=== PATIENT | male | born 1965 | race Caucasian/White ===

== ENCOUNTER 2019-05-01 14:08 | Emergency (ER) | payer MEDICAID ==
[2019-05-01 14:19] VITALS: BP 135/74
--- NOTE | 2019-05-01 14:49 | XRAY Report ---
Reason: fall in shower yesterday. pain/swelling. Procedure Date: 05/01/2019 Accession Number: [id number] / [id number] Procedure: XR - Shoulder 3 View LT CPT Code: FULL RESULT: EXAM: LEFT SHOULDER RADIOGRAPHY EXAM DATE: 05/01/2019 02:35 PM. CLINICAL HISTORY: Fall in shower yesterday. Pain/swelling. COMPARISON: None. TECHNIQUE: 4 views. FINDINGS: Bones: On the Grashey view, there is a faint vertical lucency projecting over the glenoid. On the AP view, there may be slight cortical irregularity at the posterior wall of the glenoid. The proximal humerus and the visualized clavicle are intact. Joints: The glenohumeral and acromioclavicular joints are normal. Soft tissues: Prior left axillary lymph node dissection. Visualized left lung is clear. IMPRESSION: Questionable nondisplaced fracture of the posterior wall of the scapular glenoid. Recommend axillary view. RADIA
--- NOTE | 2019-05-01 15:48 | ED Physician Documentation ---
PD HPI UPPER EXT INJURY - Stated complaint Stated Complaint: LEFT SHOULDER INJ - Chief complaint Chief Complaint: Trauma Ext - History obtained from History obtained from: Patient - History of Present Illness Location: Left, Shoulder Type of injury: Fall Where injury occurred: Home Timing - onset: Yesterday Timing - duration: Days (1) Timing - details: Abrupt onset, Still present, Still present in ED Improved by: Rest, Immobilization Worsened by: Moving, Palpating Associated symptoms: No: Weakness, Numbness, Tingling, Swelling Contributing factors: No: Anticoagulated Similar symptoms before: Has not had sx before Recently seen: Not recently seen - Additonal information Additional information: 53-year-old male with chronic back pain has some weakness to his right leg associated with his back pain and he was getting out of the shower yesterday when he fell after his right leg gave out and he landed on his outstretched left arm. He is complaining of pain in his left shoulder with restriction in range of motion. He does indicate that he has previously been on pain contract with his back pain and that Dilaudid was the medication that worked and he indicates that he is no longer on a pain contract. Review of Systems Constitutional: denies: Fever Eyes: denies: Decreased vision Ears: denies: Ear pain Nose: denies: Rhinorrhea / runny nose, Congestion Throat: denies: Sore throat Cardiac: denies: Chest pain / pressure, Palpitations Respiratory: denies: Dyspnea, Cough GI: denies: Abdominal Pain, Nausea, Vomiting : denies: Dysuria, Frequency Musculoskeletal: reports: Back pain, Extremity pain, Joint pain. denies: Neck pain Neurologic: denies: Generalized weakness, Focal weakness, Numbness PD PAST MEDICAL HISTORY - Past Medical History Past Medical History: Yes Cardiovascular: None Respiratory: None Endocrine/Autoimmune: None GI: None : None HEENT: None Psych: None Musculoskeletal: None Derm: None - Past Surgical History Past Surgical History: Yes General: Appendectomy - Present Medications Home Medications: Ambulatory Orders Medication Instructions Recorded Confirmed Hydromorphone HCl [Dilaudid] 4 mg PO Q6HR PRN #20 tablet 05/01/19 - Allergies Allergies/Adverse Reactions: Allergies Allergy/AdvReac Type Severity Reaction Status Date / Time diazepam [From Valium] Allergy Unknown Verified 05/01/19 14:19 - Social History Does the pt smoke?: No Smoking Status: Never smoker Does the pt drink ETOH?: No Does the pt have substance abuse?: No - Immunizations Immunizations are current?: Yes - POLST Patient has POLST: No PD ED PE NORMAL - Vitals Vital signs reviewed: Yes (hypertensive mild ) - General General: Alert and oriented X 3, No acute distress, Well developed/nourished - HEENT HEENT: Atraumatic, PERRL, EOMI - Neck Neck: Supple, no meningeal sign - Respiratory Respiratory: No respiratory distress - Back Back: No CVA TTP, No spinal TTP - Derm Derm: Normal color, Warm and dry, No rash - Extremities Extremities: No deformity, No edema, Other (There is tenderness to the left shoulder over the rotator cuff. He is able to hold the arm in abduction and has fair ROM. distal n/v is intact. ) - Neuro Neuro: Alert and oriented X 3, skirt maker 2-12 intact, No motor deficit, No sensory deficit, Normal speech Eye Opening: Spontaneous Motor: Obeys Commands Verbal: Oriented GCS Score: 15 - Psych Psych: Normal mood, Normal affect Results - Vitals Vitals: Vital Signs - 24 hr 05/01/19 14:16 Temperature 36.1 C L Heart Rate 88 Respiratory 16 Rate Blood Pressure 135/74 H O2 Saturation 98 Oxygen O2 Source Room air - Rads (name of study) shoulder Radiology: Prelim report reviewed (Impression: Questionable nondisplaced fracture of the posterior wall of the scapular glenoid. Recommend axillary view.), EMP read indepedently, See rad report axillary view Radiology: Prelim report reviewed (Impression: Negative axillary view of the left shoulder. No glenoid fracture is identified.), EMP read indepedently, See rad report PD MEDICAL DECISION MAKING - ED course Complexity details: reviewed results, re-evaluated patient, considered differential, d/w patient ED course: cvA NM 53-year-old male with chronic back pain has now slipped fallen and injured his left shoulder. He does appear to have a fracture of the posterior aspect of the glenoid and this does not appear to restrict his movement excessively. He is placed into a sling and instructed to remove the sling frequently for range of motion exercises and he will follow-up with orthopedics. Departure - Departure Disposition: 01 Home, Self Care Clinical Impression: Glenoid fracture of shoulder Qualifiers: Encounter type: initial encounter Fracture type: closed Laterality: left Qualified Code(s): S42.142A - Displaced fracture of glenoid cavity of scapula, left shoulder, initial encounter for closed fracture Condition: Stable Instructions: ED Immobilizer Shoulder Follow-Up: [facility] [Provider Group] Prescriptions: Hydromorphone HCl [Dilaudid] 4 mg PO Q6HR PRN #20 tablet PRN Reason: Pain Discharge Date/Time: 05/01/19 16:30
[2019-05-01] MEDS ORDERED: DEXAMETHASONE 10 MG/ML VIAL PO STA (16:21)
[2019-05-01] MEDS ORDERED: CHERRY SYRUP 10 ML UDC PO ONE (16:21)
--- NOTE | 2019-05-01 17:30 | XRAY Report ---
Reason: axillary view requested by RAD Procedure Date: 05/01/2019 Accession Number: [id number] / [id number] Procedure: XR - Shoulder 1 View LT CPT Code: FULL RESULT: EXAM: LEFT SHOULDER RADIOGRAPHY EXAM DATE: 05/01/2019 04:10 PM. CLINICAL HISTORY: Axillary view requested by RAD. Left shoulder pain and swelling after fall. COMPARISON: SHOULDER 3 VIEW LT 05/01/2019 2:25 PM. TECHNIQUE: Axillary view. FINDINGS: Bones: Normal. No fracture or bone lesion. No glenoid fracture is identified. Joints: The glenohumeral and acromioclavicular joints are normal. Soft tissues: The visualized hemithorax is unremarkable. No soft tissue swelling. IMPRESSION: Negative axillary view of the left shoulder. No glenoid fracture is identified. RADIA
== END 2019-05-01 16:30 | disposition home or self-care (01) ==
LOC: ED 14:08
DX: S42.142A Displaced fracture of glenoid cavity of scapula, left shoulder, initial encounter for closed fracture (principal); W01.0XXA Fall on same level from slipping, tripping and stumbling without subsequent striking against object, initial encounter; Y93.89 Activity, other specified; Y92.002 Bathroom of unspecified non-institutional (private) residence as the place of occurrence of the external cause; M54.9 Dorsalgia, unspecified; G89.29 Other chronic pain
CPT/HCPCS: 73020; 73030; 99283; A9270

== ENCOUNTER 2019-06-08 07:11 | Outpatient (CLI) | payer MEDICAID ==
[2019-06-08 10:27] LABS: BASOPHILS % (AUTO) 0.4 %; EOSINOPHILS # (AUTO) 0.3 10^3/uL (0.0-0.7); EOSINOPHILS % (AUTO) 2.7 %; HGB - HEMOGLOBIN 15.7 g/dL (14.0-18.0); LYMPHOCYTES # (AUTO) 3.1 10^3/uL (1.5-3.5); LYMPHOCYTES % (AUTO) 31.4 %; MEAN CORPUSCULAR HEMOGLOBIN 31.7 pg (27.0-31.0); MEAN CORPUSCULAR HGB CONC 33.9 g/dL (32.0-36.0); MEAN CORPUSCULAR VOLUME 93.3 fL (80.0-94.0); MEAN PLATELET VOLUME 9.7 fL (7.4-11.4); MONOCYTES # (AUTO) 0.5 10^3/uL (0.0-1.0); MONOCYTES % (AUTO) 5.4 %; NEUTROPHILS # (AUTO) 5.9 10^3/uL (1.5-6.6); NEUTROPHILS % (AUTO) 59.6 %; PLT - PLATELET COUNT 260 10^3/uL (130-450); RED BLOOD COUNT 4.96 10^6/uL (4.70-6.10); WHITE BLOOD COUNT 9.8 x10^3/uL (4.8-10.8)
[2019-06-08 10:40] LABS: ALBUMIN 3.9 g/dL (3.2-5.5); ALBUMIN/GLOBULIN RATIO 1.2 (1.0-2.2); BILIRUBIN,TOTAL 0.6 mg/dL (0.2-1.0); CALCIUM 9.1 mg/dL (8.5-10.3); CREATININE 1.1 mg/dL (0.6-1.2); TOTAL PROTEIN 7.2 g/dL (6.7-8.2)
[2019-06-08 10:49] LABS: HB2 TOTAL 15.8 g/dL; HEMOGLOBIN A1C 0.61 g/dL; HEMOGLOBIN A1C % 5.7 % (4.6-6.2); T4 (THYROXINE) 6.4 ug/dL (6.09-12.23)
[2019-06-08 10:53] LABS: THYROID STIMULATING HORMONE 3.34 uIU/mL (0.34-5.60)
== END 2019-06-08 07:12 | disposition home or self-care (01) ==
LOC: LAB.S 07:11
PROVIDERS: ATTEND Family Medicine
DX: F31.30 Bipolar disorder, current episode depressed, mild or moderate severity, unspecified (principal); E11.9 Type 2 diabetes mellitus without complications
CPT/HCPCS: 36415; 80050; 83036; 84436; 84480; 84481

== ENCOUNTER 2019-07-15 09:20 | Outpatient (CLI) | payer MEDICAID ==
--- NOTE | 2019-07-17 11:45 | Ultrasound Report ---
Reason: ABDOMINAL WALL ANOMALY Procedure Date: 07/15/2019 Accession Number: [id number] / [id number] Procedure: US - Abdomen Limited CPT Code: FULL RESULT: EXAM: ABDOMEN ULTRASOUND LIMITED, RIGHT UPPER QUADRANT. EXAM DATE: 07/15/2019 10:27 AM. CLINICAL HISTORY: Lump seen during physical therapy. COMPARISON: None. TECHNIQUE: Real-time scanning was performed with static images obtained. FINDINGS: Targeted evaluation of the left mid anterior abdominal wall was performed. Safety Intern static images acquired and reviewed. No focal abnormality noted at the site of clinical concern. Specifically, no ventral wall abdominal defect concerning for hernia. No additional mass, collection or adenopathy. IMPRESSION: 1. No abdominal wall hernia. 2. No mass, collection or adenopathy. RADIA
== END 2019-07-15 09:21 | disposition home or self-care (01) ==
LOC: DI 09:20
PROVIDERS: ATTEND Nurse Practitioner
DX: Q79.59 Other congenital malformations of abdominal wall (principal)
CPT/HCPCS: 76705

== ENCOUNTER 2019-12-09 11:21 | Outpatient (CLI) | payer MEDICAID ==
[2019-12-09 11:59] LABS: BASOPHILS # (AUTO) 0.1 10^3/uL (0.0-0.1); BASOPHILS % (AUTO) 0.4 %; EOSINOPHILS # (AUTO) 0.1 10^3/uL (0.0-0.7); EOSINOPHILS % (AUTO) 1.1 %; HGB - HEMOGLOBIN 15.8 g/dL (14.0-18.0); LYMPHOCYTES # (AUTO) 2.2 10^3/uL (1.5-3.5); LYMPHOCYTES % (AUTO) 19.5 %; MEAN CORPUSCULAR HGB CONC 33.8 g/dL (32.0-36.0); MEAN CORPUSCULAR VOLUME 85.9 fL (80.0-94.0); MEAN PLATELET VOLUME 8.7 fL (7.4-11.4); MONOCYTES # (AUTO) 0.7 10^3/uL (0.0-1.0); MONOCYTES % (AUTO) 6.4 %; NEUTROPHILS # (AUTO) 8.1 10^3/uL (1.5-6.6); NEUTROPHILS % (AUTO) 72.2 %; PLT - PLATELET COUNT 274 10^3/uL (130-450); RED BLOOD COUNT 5.45 10^6/uL (4.70-6.10); RED CELL DISTRIBUTION WIDTH 12.4 % (12.0-15.0); WHITE BLOOD COUNT 11.2 x10^3/uL (4.8-10.8)
[2019-12-09 12:05] LABS: CALCIUM 9.5 mg/dL (8.5-10.3); CREATININE 1.2 mg/dL (0.6-1.2)
[2019-12-09 12:14] LABS: HEMOGLOBIN A1C 1.18 g/dL; HEMOGLOBIN A1C % 8.9 % (4.6-6.2)
== END 2019-12-09 11:22 | disposition home or self-care (01) ==
LOC: LAB 11:21
PROVIDERS: ATTEND Family Medicine
DX: M54.5 Low back pain (principal); G89.29 Other chronic pain; E11.9 Type 2 diabetes mellitus without complications; R23.1 Pallor
CPT/HCPCS: 36415; 80048; 83036; 85025

== ENCOUNTER 2020-04-24 12:17 | Outpatient (CLI) | payer MEDICAID | END 2020-04-24 12:18 | disposition critical access hospital (66) | LOC: EMS 12:17 | PROVIDERS: ATTEND Surgery | DX: R07.9 Chest pain, unspecified (principal); R42 Dizziness and giddiness; R73.09 Other abnormal glucose | CPT/HCPCS: A0425; A0429; A0999 ==

== ENCOUNTER 2020-04-24 12:37 | Emergency (ER) | payer MEDICAID ==
--- NOTE | 2020-04-24 12:44 | ED Physician Documentation ---
PD HPI CHEST PAIN - Stated complaint Stated Complaint: DIZZY/CHEST PAIN - History obtained from History obtained from: Patient, EMS - History of Present Illness Timing - onset: Other (54-year-old gentleman with chronic back pain presents by ambulance today because he is "felt like crud" for the last 2 days. He has been dizzy with sweats. Starting today at around 10 AM has had mild left lower chest pain that is nonradiating that he describes as sharp. No history of heart problems. No pedal edema or calf pain. Prehospital his EKG was normal and his blood sugar was about 500. He does have a history of borderline diabetes for which she is supposed to take metformin but missed the last few days.) Review of Systems Constitutional: reports: Fatigue, Sweats. denies: Fever, Chills Throat: denies: Dental pain / toothache, Sore throat Cardiac: reports: Chest pain / pressure. denies: Palpitations, Pedal edema, Calf pain Respiratory: denies: Dyspnea, Cough GI: reports: Constipation. denies: Abdominal Pain, Nausea, Diarrhea PD PAST MEDICAL HISTORY - Past Medical History Cardiovascular: None Respiratory: None Endocrine/Autoimmune: None GI: None : None HEENT: None Psych: None Musculoskeletal: None Derm: None - Past Surgical History Past Surgical History: Yes General: Appendectomy - Present Medications Home Medications: Ambulatory Orders Medication Instructions Recorded Confirmed Hydromorphone HCl [Dilaudid] 4 mg PO Q6HR PRN #20 tablet 05/01/19 Blood Sugar Diagnostic [Glucometer 1 each QID #120 strip 04/24/20 Strips] Blood-Glucose Meter [Glucometer] 1 each ONCE #1 each 04/24/20 Glipizide 5 mg PO DAILY #30 tablet 04/24/20 Lancets 1 each QID #120 each 04/24/20 - Allergies Allergies/Adverse Reactions: Allergies Allergy/AdvReac Type Severity Reaction Status Date / Time diazepam [From Valium] Allergy Unknown Verified 04/24/20 12:43 - Social History Does the pt smoke?: No Smoking Status: Never smoker Does the pt drink ETOH?: No Does the pt have substance abuse?: No - Immunizations Immunizations are current?: Yes - POLST Patient has POLST: No PD ED PE NORMAL - Vitals Vital signs reviewed: Yes - General General: Alert and oriented X 3, No acute distress - HEENT HEENT: PERRL, EOMI - Neck Neck: Supple, no meningeal sign, No bony TTP - Cardiac Cardiac: RRR, No murmur - Respiratory Respiratory: No respiratory distress, Clear bilaterally - Abdomen Abdomen: Non tender - Back Back: No CVA TTP, No spinal TTP - Derm Derm: Normal color, Warm and dry - Extremities Extremities: No edema, No calf tenderness / cord - Neuro Neuro: Alert and oriented X 3, Normal speech Results - Vitals Vitals: Vital Signs - 24 hr 04/24/20 04/24/20 04/24/20 12:44 12:49 14:38 Temperature 36.5 C 36.5 C Heart Rate 78 87 87 Respiratory 16 16 19 Rate Blood Pressure 127/75 127/75 116/81 H O2 Saturation 96 92 97 Oxygen O2 Source Room air - EKG (time done) 1306 Rate: Rate (enter#) (77) Rhythm: NSR [place]: Normal Intervals: Normal [place] QRS: Normal Ischemia: Normal ST segments Computer interpretation: Agree with computer - Labs Labs: Laboratory Tests 04/24/20 04/24/20 04/24/20 12:50 12:50 12:50 WBC 5.0 RBC 4.96 Hgb 14.2 Hct 41.3 L MCV 83.3 MCH 28.6 MCHC 34.4 RDW 12.3 Plt Count 229 MPV 9.1 Neut # (Auto) 3.0 Lymph # (Auto) 1.5 [place] # (Auto) 0.4 Eos # (Auto) 0.1 Baso # (Auto) 0.0 Absolute Nucleated RBC 0.00 Nucleated RBC % 0.0 VBG pH VBG pCO2 VBG pO2 VBG HCO3 VBG Total CO2 VBG O2 Saturation VBG Base Excess Sodium 130 L Potassium 4.0 Chloride 94 L Carbon Dioxide 25 Anion Gap 11.0 BUN 17 Creatinine 1.3 H Estimated GFR (MDRD) 57 L Glucose 537 H* Calcium 8.9 Phosphorus 3.1 Magnesium 1.8 Total Bilirubin 0.5 AST 28 ALT 51 Alkaline Phosphatase 147 H Troponin I High Sens 3.7 Total Protein 6.8 Albumin 3.6 Globulin 3.2 Albumin/Globulin Ratio 1.1 Lipase 47 Urine Color Urine Clarity Urine pH Ur Specific [place] Urine Protein Urine Glucose (UA) Urine Ketones Urine Occult Blood Urine Nitrite Urine Bilirubin Urine Urobilinogen Ur Leukocyte Esterase Ur Microscopic Review Urine Culture Comments Urine Opiates Screen Ur Oxycodone Screen Urine Methadone Screen Ur Propoxyphene Screen Ur Barbiturates Screen Ur Tricyclics Screen Ur Phencyclidine Scrn Ur Amphetamine Screen U Methamphetamines Scrn U Benzodiazepines Scrn Urine Cocaine Screen U Cannabinoids Screen Serum Ketones NEGATIVE 04/24/20 04/24/20 12:50 12:55 WBC RBC Hgb Hct MCV MCH MCHC RDW Plt Count MPV Neut # (Auto) Lymph # (Auto) [place] # (Auto) Eos # (Auto) Baso # (Auto) Absolute Nucleated RBC Nucleated RBC % VBG pH 7.399 VBG pCO2 40.1 L VBG pO2 35.8 VBG HCO3 24.2 VBG Total CO2 25.5 VBG O2 Saturation 75.1 VBG Base Excess -0.5 Sodium Potassium Chloride Carbon Dioxide Anion Gap BUN Creatinine Estimated GFR (MDRD) Glucose Calcium Phosphorus Magnesium Total Bilirubin AST ALT Alkaline Phosphatase Troponin I High Sens Total Protein Albumin Globulin Albumin/Globulin Ratio Lipase Urine Color YELLOW Urine Clarity CLEAR Urine pH 6.5 Ur Specific [place] <=1.005 Urine Protein NEGATIVE Urine Glucose (UA) >=1000 H Urine Ketones NEGATIVE Urine Occult Blood NEGATIVE Urine Nitrite NEGATIVE Urine Bilirubin NEGATIVE Urine Urobilinogen 0.2 (NORMAL) Ur Leukocyte Esterase NEGATIVE Ur Microscopic Review NOT INDICATED Urine Culture Comments NOT INDICATED Urine Opiates Screen NEGATIVE Ur Oxycodone Screen NEGATIVE Urine Methadone Screen NEGATIVE Ur Propoxyphene Screen NEGATIVE Ur Barbiturates Screen NEGATIVE Ur Tricyclics Screen POSITIVE H Ur Phencyclidine Scrn NEGATIVE Ur Amphetamine Screen NEGATIVE U Methamphetamines Scrn NEGATIVE U Benzodiazepines Scrn NEGATIVE Urine Cocaine Screen NEGATIVE U Cannabinoids Screen POSITIVE H Serum Ketones PD MEDICAL DECISION MAKING - ED course ED course: 54-year-old gentleman with recent diagnosis of diabetes has been off of his metformin for a few days because he went on vacation and did not take it with him. Now presents with dizziness and other nonspecific symptoms that would point to severe hyperglycemia which was treated with divided doses of saline and insulin with significant improvement in his blood sugar and his symptoms. I recommended starting a low-dose of Lantus, he does not want to take insulin so we will add glipizide as a second agent. Departure - Departure Disposition: 01 Home, Self Care Clinical Impression: Uncontrolled type 2 diabetes mellitus Qualifiers: Glycemic state: with hyperglycemia Qualified Code(s): E11.65 - Type 2 diabetes mellitus with hyperglycemia Condition: Good Record reviewed to determine appropriate education?: Yes Instructions: Diabetes Type 2 Oral Meds, ED Hyperglycemia Diabetic Follow-Up: Mark Boyce MD [Primary Care Provider] - Prescriptions: Blood Sugar Diagnostic [Glucometer Strips] 1 each QID #120 strip Blood-Glucose Meter [Glucometer] 1 each ONCE #1 each Glipizide 5 mg PO DAILY #30 tablet Lancets 1 each QID #120 each Comments: Restart your metformin, also add the glipizide. Start checking your blood sugars 3 times a day and keep track of them. Follow-up with your doctor, next available appointment. Return if worse. As discussed, I suspect that at some point you will likely need to start insulin therapy.
[2020-04-24] MEDS ORDERED: ASPIRIN CHEW 81 MG TABLET PO STA (12:55)
[2020-04-24] MEDS ORDERED: INSULIN REGULAR HUMAN 100 UNIT/1 ML 10 ML MDV IVP STA ×2 (12:55→13:56)
[2020-04-24] MEDS ORDERED: SODIUM CHLORIDE 0.9% 1,000 ML IV STA ×2 (12:55→13:56)
[2020-04-24 12:58] LABS: VBG PCO2 40.1 mmHg (41-51); VBG PH 7.399 (7.31-7.41)
[2020-04-24 12:59] LABS: VBG BASE EXCESS -0.5 mmol/L (-2 - +2); VBG PO2 35.8 mmHg (25-47); VBG TOTAL CO2 25.5 mmol/L (24-29)
[2020-04-24 13:00] LABS: BASOPHILS % (AUTO) 0.4 %; EOSINOPHILS # (AUTO) 0.1 10^3/uL (0.0-0.7); EOSINOPHILS % (AUTO) 1.4 %; HGB - HEMOGLOBIN 14.2 g/dL (14.0-18.0); LYMPHOCYTES # (AUTO) 1.5 10^3/uL (1.5-3.5); LYMPHOCYTES % (AUTO) 30.3 %; MEAN CORPUSCULAR HEMOGLOBIN 28.6 pg (27.0-31.0); MEAN CORPUSCULAR HGB CONC 34.4 g/dL (32.0-36.0); MEAN CORPUSCULAR VOLUME 83.3 fL (80.0-94.0); MEAN PLATELET VOLUME 9.1 fL (7.4-11.4); MONOCYTES # (AUTO) 0.4 10^3/uL (0.0-1.0); NEUTROPHILS % (AUTO) 59.1 %; PLT - PLATELET COUNT 229 10^3/uL (130-450); RED BLOOD COUNT 4.96 10^6/uL (4.70-6.10); RED CELL DISTRIBUTION WIDTH 12.3 % (12.0-15.0)
[2020-04-24 13:01] LABS: MUDS CUTOFF CONCENTRATIONS CUTOFF CONC BELOW:
[2020-04-24 13:03] LABS: BILIRUBIN,URINE NEGATIVE (NEGATIVE); GLUCOSE, URINE (UA) >=1000 mg/dL (NEGATIVE); KETONES,URINE (UA) NEGATIVE (NEGATIVE); LEUKOCYTE ESTERASE, URINE NEGATIVE (NEGATIVE); NITRITE,URINE NEGATIVE (NEGATIVE); OCCULT BLOOD,URINE NEGATIVE (NEGATIVE); PH,URINE 6.5 PH (5.0-7.5); PROTEIN,URINE NEGATIVE (NEGATIVE); UROBILINOGEN,URINE 0.2 (NORMAL) E.U./dL (NORMAL)
[2020-04-24 13:09] LABS: CLARITY,URINE CLEAR (CLEAR)
[2020-04-24 13:13] LABS: ALBUMIN 3.6 g/dL (3.2-5.5); ALBUMIN/GLOBULIN RATIO 1.1 (1.0-2.2); ALKALINE PHOSPHATASE 147 IU/L (42-121); ALT ALANINE AMINOTRANSFERASE 51 IU/L (10-60); AST ASPARTATE AMINOTRANSFERASE 28 IU/L (10-42); BILIRUBIN,TOTAL 0.5 mg/dL (0.2-1.0); BUN - BLOOD UREA NITROGEN 17 mg/dL (6-20); CALCIUM 8.9 mg/dL (8.5-10.3); CARBON DIOXIDE - CO2 25 mmol/L (21-32); CHLORIDE 94 mmol/L (101-111); CREATININE 1.3 mg/dL (0.6-1.2); LIPASE 47 U/L (22-51); MAGNESIUM 1.8 mg/dL (1.7-2.8); PHOSPHORUS 3.1 mg/dL (2.5-4.6); SODIUM 130 mmol/L (135-145); TOTAL PROTEIN 6.8 g/dL (6.7-8.2)
[2020-04-24 13:18] LABS: AMPHETAMINE SCREEN,URINE NEGATIVE (NEGATIVE); BENZODIAZEPINES SCREEN, URINE NEGATIVE (NEGATIVE); COCAINE SCREEN URINE NEGATIVE (NEGATIVE); METHADONE SCREEN, URINE NEGATIVE (NEGATIVE); METHAMPHETAMINES SCREEN, URINE NEGATIVE (NEGATIVE); OPIATE SCREEN, URINE NEGATIVE (NEGATIVE); OXYCODONE SCREEN, URINE NEGATIVE (NEGATIVE); PROPOXYPHENE SCREEN, URINE NEGATIVE (NEGATIVE); TRICYCLIC ANTIDEPRESSANT,URINE POSITIVE (NEGATIVE)
[2020-04-24 13:20] LABS: GLUCOSE 537 mg/dL (70-100); KETONES, SERUM (ACETEST) NEGATIVE (NEGATIVE)
[2020-04-24] MEDS ORDERED: metFORMIN 500 MG TABLET PO STA (13:56)
[2020-04-24] MEDS ORDERED: glipiZIDE 5 MG TABLET PO STA (14:58)
[2020-04-24 15:23] VITALS: BP 139/71
[2020-04-24 15:53] LABS: HEMOGLOBIN A1C 1.77 g/dL; HEMOGLOBIN A1C % 12.9 % (4.6-6.2)
== END 2020-04-24 15:24 | disposition home or self-care (01) ==
LOC: EDUNIT# → ED 12:37
DX: E11.65 Type 2 diabetes mellitus with hyperglycemia (principal); T38.3X6A Underdosing of insulin and oral hypoglycemic [antidiabetic] drugs, initial encounter; Z91.128 Patient's intentional underdosing of medication regimen for other reason; Z79.84 Long term (current) use of oral hypoglycemic drugs
CPT/HCPCS: 36415; 80053; 80306; 81003; 82009; 82803; 83036; 83690; 83735; 84100; 84484; 85025; 93005; 96360; 96361; 99284; A9270; J1815; 81001; 87086

== ENCOUNTER 2020-04-25 08:00 | Outpatient (CLI) | payer MEDICAID ==
--- NOTE | 2020-04-25 15:08 | XRAY Report ---
Reason: LEFT ELBOW PAIN Procedure Date: 04/25/2020 Accession Number: [id number] / [id number] Procedure: WCP - Elbow 3 View LT CPT Code: Final Report FULL RESULT: PROCEDURE: Elbow 3 View LT INDICATIONS: LEFT ELBOW PAIN TECHNIQUE: 4 views of the elbow were acquired. COMPARISON: None FINDINGS: Bones: No fractures or dislocations. No suspicious bony lesions. Mild tricompartmental periarticular osteophyte formation is present. Soft tissues: No elbow joint effusion. No suspicious soft tissue calcifications. IMPRESSION: Osteoarthritis. No acute fracture. No osseous lesion. If symptoms and/or clinical suspicion for pathology continue, further assessment with repeat plain films, or advanced imaging (e.g., CT, MRI, or bone scan) is recommended for further assessment. Reviewed by: Deedee Fernando MD on 04/25/2020 3:03 PM PDT Approved by: Deedee Fernando MD on 04/25/2020 3:03 PM PDT Station ID: [id number]
== END 2020-04-25 23:59 | disposition home or self-care (01) ==
LOC: DI.WCP 08:00
PROVIDERS: ATTEND Family Medicine
DX: M19.022 Primary osteoarthritis, left elbow (principal)

== ENCOUNTER 2020-07-06 13:38 | Outpatient (CLI) | payer MEDICAID | END 2020-07-06 13:39 | disposition critical access hospital (66) | LOC: EMS 13:38 | PROVIDERS: ATTEND Surgery | DX: S99.912A Unspecified injury of left ankle, initial encounter (principal); W23.0XXA Caught, crushed, jammed, or pinched between moving objects, initial encounter | CPT/HCPCS: A0425; A0427; A0999 ==

== ENCOUNTER 2020-07-06 14:00 | Emergency (ER) | payer MEDICAID ==
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
[2020-07-06] MEDS ORDERED: HYDROmorphone 1 MG/ML CARPUJECT IVP STA (14:17)
[2020-07-06] MEDS ORDERED: oxyCODONE 5 MG TABLET PO STA (14:47)
[2020-07-06] MEDS ORDERED: IBUPROFEN 600 MG TABLET PO STA (14:47)
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
[2020-07-06 15:02] VITALS: BP 135/82
== END 2020-07-06 15:51 | disposition home or self-care (01) ==
LOC: EDUNIT# → ED 14:00
DX: S60.419A Abrasion of unspecified finger, initial encounter (principal); S20.319A Abrasion of unspecified front wall of thorax, initial encounter; S97.02XA Crushing injury of left ankle, initial encounter; S86.912A Strain of unspecified muscle(s) and tendon(s) at lower leg level, left leg, initial encounter; W23.0XXA Caught, crushed, jammed, or pinched between moving objects, initial encounter; Y93.89 Activity, other specified
CPT/HCPCS: 73562; 73610; 99283; 99284; A9270

== ENCOUNTER 2020-07-08 08:27 | Outpatient (CLI) | payer MEDICAID ==
[2020-07-08 11:43] LABS: CALCIUM 10.2 mg/dL (8.5-10.3)
[2020-07-08 12:31] LABS: HB2 TOTAL 15.3 g/dL; HEMOGLOBIN A1C 1.15 g/dL
== END 2020-07-08 23:59 | disposition home or self-care (01) ==
LOC: LAB.WCP 08:27
PROVIDERS: ATTEND Family Medicine
DX: E11.42 Type 2 diabetes mellitus with diabetic polyneuropathy (principal)
CPT/HCPCS: 36415; 80048; 83036

== ENCOUNTER 2020-08-08 11:14 | Outpatient (CLI) | payer MEDICAID ==
--- NOTE | 2020-08-08 11:17 | XRAY Report ---
PROCEDURE: Hand 3 View LT INDICATIONS: LEFT HAND PAIN TECHNIQUE: 3 views of the hand(s) acquired. COMPARISON: None. FINDINGS: Bones: No fractures or dislocations. No suspicious bony lesions. Soft tissues: No suspicious soft tissue calcifications. IMPRESSION: Source of pain is not found. No trauma identified. Note is made of what appears to be mild swelling o eddie the dorsum of the hand on the lateral view. However, this may simply represent body habitus. Reviewed by: Valerio Amato MD on 08/08/2020 11:16 AM PDT Approved by: Valerio Amato MD on 08/08/2020 11:16 AM PDT Station ID: [id number]
--- NOTE | 2020-08-08 11:19 | XRAY Report ---
PROCEDURE: Wrist 3 View LT INDICATIONS: LEFT WRIST PAIN TECHNIQUE: 3 views of the wrist were acquired. COMPARISON: FINDINGS: Bones: No fractures or dislocations. Note is made of an old accessory ossicle or old avulsion fragm ent adjacent to the distal aspect of the ulna styloid process. No suspicious bony lesions. Scaphoid view: Not obtained but the scaphoid visualized appears normal. Soft tissues: No suspicious soft tissue calcifications. IMPRESSION: No acute trauma found. What appears to be an accessory ossicle or long-standing old avulsion fragment from the distant past is noted adjacent to the tip of the ulnar styloid process. Reviewed by: Valerio Amato MD on 08/08/2020 11:17 AM PDT Approved by: Valerio Amato MD on 08/08/2020 11:17 AM PDT Station ID: [id number]
== END 2020-08-08 23:59 | disposition home or self-care (01) ==
LOC: DI.WCP 11:14
PROVIDERS: ATTEND Nurse Practitioner
DX: M79.642 Pain in left hand (principal)

== ENCOUNTER 2020-08-24 10:03 | Outpatient (CLI) | payer MEDICAID ==
[2020-08-24 11:41] LABS: BASOPHILS # (AUTO) 0.1 10^3/uL (0.0-0.1); BASOPHILS % (AUTO) 0.5 %; EOSINOPHILS # (AUTO) 0.1 10^3/uL (0.0-0.7); EOSINOPHILS % (AUTO) 0.6 %; HGB - HEMOGLOBIN 15.1 g/dL (14.0-18.0); LYMPHOCYTES # (AUTO) 1.5 10^3/uL (1.5-3.5); LYMPHOCYTES % (AUTO) 14.5 %; MEAN CORPUSCULAR HEMOGLOBIN 30.8 pg (27.0-31.0); MEAN CORPUSCULAR HGB CONC 33.6 g/dL (32.0-36.0); MEAN CORPUSCULAR VOLUME 91.4 fL (80.0-94.0); MEAN PLATELET VOLUME 9.6 fL (7.4-11.4); MONOCYTES # (AUTO) 0.6 10^3/uL (0.0-1.0); MONOCYTES % (AUTO) 5.9 %; NEUTROPHILS # (AUTO) 8.1 10^3/uL (1.5-6.6); NEUTROPHILS % (AUTO) 76.8 %; PLT - PLATELET COUNT 248 10^3/uL (130-450); RED BLOOD COUNT 4.91 10^6/uL (4.70-6.10); RED CELL DISTRIBUTION WIDTH 14.2 % (12.0-15.0); WHITE BLOOD COUNT 10.5 x10^3/uL (4.8-10.8)
[2020-08-24 11:57] LABS: ALBUMIN 4.2 g/dL (3.2-5.5); ALBUMIN/GLOBULIN RATIO 1.4 (1.0-2.2); BILIRUBIN,TOTAL 0.6 mg/dL (0.2-1.0); CALCIUM 9.4 mg/dL (8.5-10.3); CREATININE 0.9 mg/dL (0.6-1.2); TOTAL PROTEIN 7.3 g/dL (6.7-8.2)
[2020-08-24 12:03] LABS: CREATININE,URINE 64.6 mg/dL; MICROALBUM/CREATININE RATIO,UR 15.5 ug/mg (<30.0)
== END 2020-08-24 23:59 | disposition home or self-care (01) ==
LOC: LAB.WCP 10:03
PROVIDERS: ATTEND Family Medicine
DX: E11.40 Type 2 diabetes mellitus with diabetic neuropathy, unspecified (principal)
CPT/HCPCS: 36415; 80050; 82043; 82570

== ENCOUNTER 2020-08-29 09:23 | Emergency (ER) | payer MEDICAID ==
[2020-08-29] MEDS ORDERED: SODIUM CHLORIDE 0.9% 1,000 ML IV STA (10:16)
[2020-08-29 10:49] LABS: BASOPHILS % (AUTO) 0.4 %; EOSINOPHILS # (AUTO) 0.1 10^3/uL (0.0-0.7); EOSINOPHILS % (AUTO) 1.4 %; HGB - HEMOGLOBIN 14.9 g/dL (14.0-18.0); LYMPHOCYTES # (AUTO) 2.5 10^3/uL (1.5-3.5); LYMPHOCYTES % (AUTO) 25.1 %; MEAN CORPUSCULAR HEMOGLOBIN 30.8 pg (27.0-31.0); MEAN CORPUSCULAR HGB CONC 33.9 g/dL (32.0-36.0); MEAN CORPUSCULAR VOLUME 91.1 fL (80.0-94.0); MONOCYTES # (AUTO) 0.7 10^3/uL (0.0-1.0); MONOCYTES % (AUTO) 6.8 %; NEUTROPHILS # (AUTO) 6.5 10^3/uL (1.5-6.6); NEUTROPHILS % (AUTO) 65.1 %; PLT - PLATELET COUNT 214 10^3/uL (130-450); RED BLOOD COUNT 4.83 10^6/uL (4.70-6.10); RED CELL DISTRIBUTION WIDTH 14.3 % (12.0-15.0); WHITE BLOOD COUNT 9.9 x10^3/uL (4.8-10.8)
--- NOTE | 2020-08-29 10:49 | ED Physician Documentation ---
History of Present Illness - Stated complaint Stated Complaint: HIGH BLOOD SUGAR - Chief complaint Chief Complaint: General - History obtained from History obtained from: Patient - Additonal information Additional information: Patient comes emergency department stating that he has high blood sugar this morning. He states he measured at 507. He also states he did not take his medications last night, which include Dilaudid and several psychotropic medications, so he took them this morning instead. He denies any other complaints. No abdominal or chest pain. No shortness of breath or cough. No fevers. No dysuria. No nausea or vomiting. Patient does also have a morphine patch on his back. He states that he called his primary care physician's office and they told him to come here because of the high blood sugar. No other complaints at this time. Patient states he has not had his diabetes meds adjusted lately and has not been eating a greater quantity of food or a higher sugar content. Review of Systems Ten Systems: 10 systems reviewed and negative Constitutional: reports: Reviewed and negative Eyes: reports: Reviewed and negative Ears: reports: Reviewed and negative Nose: reports: Reviewed and negative Throat: reports: Reviewed and negative Cardiac: reports: Reviewed and negative Respiratory: reports: Reviewed and negative GI: reports: Reviewed and negative : reports: Reviewed and negative Skin: reports: Reviewed and negative Musculoskeletal: reports: Reviewed and negative Neurologic: reports: Reviewed and negative Psychiatric: reports: Reviewed and negative Endocrine: reports: Reviewed and negative Immunocompromised: reports: Reviewed and negative PD PAST MEDICAL HISTORY - Past Medical History Cardiovascular: None Respiratory: None Neuro: None Endocrine/Autoimmune: None GI: None : None HEENT: None Psych: None Musculoskeletal: None Derm: None - Past Surgical History Past Surgical History: Yes General: Appendectomy - Present Medications Home Medications: Ambulatory Orders Medication Instructions Recorded Confirmed Blood Sugar Diagnostic [Glucometer 1 each QID #120 strip 04/24/20 Strips] Blood-Glucose Meter [Glucometer] 1 each ONCE #1 each 04/24/20 Glipizide 5 mg PO DAILY #30 tablet 04/24/20 08/29/20 Lancets 1 each QID #120 each 04/24/20 Naproxen 500 mg PO BID #20 tablet 07/06/20 08/29/20 Atorvastatin Calcium [Lipitor] 80 mg PO DAILY PM 08/29/20 08/29/20 Buprenorphine 1 each TD OAW 08/29/20 08/29/20 Buspirone HCl 15 mg PO BID 08/29/20 08/29/20 Divalproex ER [Depakote ER] 250 mg PO DAILY PM 08/29/20 08/29/20 HYDROmorphone [Dilaudid] 2 mg PO Q4-6H PRN 08/29/20 08/29/20 Insulin Glargine [Lantus Solostar] 20 unit SUBQ DAILY 08/29/20 08/29/20 Quetiapine Fumarate 2 tab PO DAILY PM 08/29/20 08/29/20 Sertraline HCl [Zoloft] 1.5 tab PO DAILY 08/29/20 08/29/20 dexAMETHasone [Dexamethasone] 1 tab PO BID 08/29/20 08/29/20 metFORMIN [Glucophage] 500 mg PO BIDWM 08/29/20 08/29/20 risperiDONE [Risperdal] 1 mg PO DAILY PM 08/29/20 08/29/20 - Allergies Allergies/Adverse Reactions: Allergies Allergy/AdvReac Type Severity Reaction Status Date / Time diazepam [From Valium] Allergy Unknown Verified 08/29/20 09:39 - Social History Does the pt smoke?: No Smoking Status: Never smoker Does the pt drink ETOH?: No Does the pt have substance abuse?: No - Immunizations Immunizations are current?: Yes - POLST Patient has POLST: No PD ED PE NORMAL - Vitals Vital signs reviewed: Yes - General General: No acute distress, Well developed/nourished, Other (Patient is heavily drowsy, but does arouse to answer questions with stimulation.) - HEENT HEENT: Atraumatic, PERRL, EOMI, Moist mucous membranes - Neck Neck: Supple, no meningeal sign - Cardiac Cardiac: RRR, No murmur - Respiratory Respiratory: No respiratory distress, Clear bilaterally - Abdomen Abdomen: Soft, Non tender, Non distended - Derm Derm: Normal color, Warm and dry, No rash - Extremities Extremities: No deformity, No edema, No calf tenderness / cord - 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 He arouses with non-noxious stimulation, but easily falls asleep again.) - Psych Psych: Normal mood, Normal affect Results - Vitals Vitals: Vital Signs - 24 hr 08/29/20 08/29/20 08/29/20 09:39 10:05 11:38 Temperature 36.2 C L 36.5 C 36.6 C Heart Rate 79 62 70 Respiratory 20 14 16 Rate Blood Pressure 122/59 L 134/79 H 124/78 O2 Saturation 96 93 96 08/29/20 12:00 Temperature Heart Rate 59 L Respiratory 15 Rate Blood Pressure 124/78 O2 Saturation 94 Oxygen O2 Source Room air - Labs Labs: Laboratory Tests 08/29/20 08/29/20 08/29/20 09:46 10:31 10:31 WBC 9.9 RBC 4.83 Hgb 14.9 Hct 44.0 MCV 91.1 MCH 30.8 MCHC 33.9 RDW 14.3 Plt Count 214 MPV 9.0 Neut # (Auto) 6.5 Lymph # (Auto) 2.5 [place] # (Auto) 0.7 Eos # (Auto) 0.1 Baso # (Auto) 0.0 Absolute Nucleated RBC 0.00 Nucleated RBC % 0.0 Sodium 137 Potassium 3.7 Chloride 102 Carbon Dioxide 26 Anion Gap 9.0 BUN 26 H Creatinine 0.9 Estimated GFR (MDRD) 88 L Glucose 253 H POC Whole Bld Glucose 249 H Calcium 9.0 Total Bilirubin 0.6 AST 19 ALT 31 Alkaline Phosphatase 86 Total Protein 6.8 Albumin 3.9 Globulin 2.9 Albumin/Globulin Ratio 1.3 Lipase 37 PD MEDICAL DECISION MAKING - ED course Complexity details: reviewed old records, reviewed results, re-evaluated patient, considered differential, d/w patient ED course: The patient was worked up with fingerstick glucose, which was 249. He was worked up with labs and morphine patch was removed from his back, as patient was oversedated. Labs were unremarkable, except for his glucose, which was consistent with the POC finding. The pt was arousable, and was advised that he should take his meds only as directed. He needs to follow up with his PCP to determine if he should be on a less sedating cocktail of meds. AT this point in time, though, he is stable for d/c home. Departure - Departure Disposition: Home, Self Care Clinical Impression: Hyperglycemia, Medication side effect Condition: Stable Instructions: ED Hyperglycemia Diabetic Comments: Your blood sugar is in the 240s here in the emergency department. You should take your diabetic medications as prescribed, at the appropriate time. It is very important that you take your other medications when they are supposed to be taken. You are most likely oversedated this morning because of the nighttime medications that you took this morning. Your pain patch has been removed to help clear up some of the sedation. Please only take your medications as prescribed and at the appropriate time to avoid complications. Please go home and get some rest until you are feeling more alert. There is no evidence of a dangerous level of medications in your system at this time. Discharge Date/Time: 08/29/20 12:16
[2020-08-29 10:56] LABS: ALBUMIN 3.9 g/dL (3.2-5.5); ALBUMIN/GLOBULIN RATIO 1.3 (1.0-2.2); BILIRUBIN,TOTAL 0.6 mg/dL (0.2-1.0); CREATININE 0.9 mg/dL (0.6-1.2); TOTAL PROTEIN 6.8 g/dL (6.7-8.2)
[2020-08-29 11:38] VITALS: BP 124/78
== END 2020-08-29 12:16 | disposition home or self-care (01) ==
LOC: ED 09:23
DX: E11.65 Type 2 diabetes mellitus with hyperglycemia (principal); Z79.4 Long term (current) use of insulin; R40.0 Somnolence; T40.2X5A Adverse effect of other opioids, initial encounter
CPT/HCPCS: 36415; 80053; 83690; 85025; 96360; 99284

== ENCOUNTER 2020-09-12 09:40 | Outpatient (CLI) | payer MEDICAID ==
--- NOTE | 2020-09-12 12:44 | XRAY Report ---
PROCEDURE: Lumbar Spine Complete INDICATIONS: ACUTE BACK PX TECHNIQUE: 4 views of the lumbar spine were acquired. COMPARISON: None. FINDINGS: Bones: 5 [id number] vertebrae are present. A subtle leftward curvature secondary to minor righ t-sided disc height loss at L2-3 and L3-4. AP alignment remains normal. Chronic appearing superior e ndplate scalloping at multiple levels, most extensive at L5. No vertebral body compression fractures. No suspicious bony lesions. Soft tissues: Moderate L5-S1 disc height loss. Mild disc height loss at other levels. Overlying julia l gas pattern is normal. No suspicious soft tissue calcifications. IMPRESSION: 1. Mild to moderate degenerative changes, particularly L5-S1 disc. 2. Minor leftward curvature but no evidence of AP subluxation. Reviewed by: Jordana Parsons MD on 09/12/2020 12:43 PM PDT Approved by: Jordana Parsons MD on 09/12/2020 12:43 PM PDT Station ID: [id number]
== END 2020-09-12 09:41 | disposition home or self-care (01) ==
LOC: DI 09:40
PROVIDERS: ATTEND Family Medicine
DX: M51.36 Other intervertebral disc degeneration, lumbar region (principal); M51.37 Other intervertebral disc degeneration, lumbosacral region
CPT/HCPCS: 72110

== ENCOUNTER 2020-09-15 12:49 | Outpatient (CLI) | payer MEDICAID ==
--- NOTE | 2020-09-15 12:54 | XRAY Report ---
PROCEDURE: Cervical Spine 2 View INDICATIONS: ARTHRITIS TECHNIQUE: 4 view(s) of the cervical spine were acquired. COMPARISON: None. FINDINGS: Bones: No acute fractures or dislocations to the superior endplate of C7 level. The lateral masses of C1 appear intact on the odontoid view. No acute compression fractures noted. Moderate multilevel cervical spondylosis most severe from C3-4 through C6-7. Prominent endplate osteophyte formation. Str aightening of cervical lordosis. Chronic appearing anterior compression deformity at C5. No suspiciou s bony lesions. Soft tissues: No prevertebral soft tissue swelling. Surgical clips are noted in the left upper ches t. Soft tissue calcifications over the left lateral neck likely related to vascular calcifications. IMPRESSION: 1. Cervical spine without acute osseous abnormalities. 2. Straightening of cervical lordosis likely related to positioning and/or concurrent muscle spasms. 3. Moderate multilevel cervical spondylosis, most pronounced from C3-4 through C6-7. Reviewed by: Luis A Lynne MD on 09/15/2020 12:52 PM PDT Approved by: Luis A Lynne MD on 09/15/2020 12:52 PM PDT Station ID: [id number]
== END 2020-09-15 23:59 | disposition home or self-care (01) ==
LOC: DI.WCP 12:49
PROVIDERS: ATTEND Family Medicine
DX: M47.812 Spondylosis without myelopathy or radiculopathy, cervical region (principal)
CPT/HCPCS: 72040

== ENCOUNTER 2020-09-17 11:42 | Emergency (ER) | payer MEDICAID ==
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
[2020-09-17 12:36] LABS: BASOPHILS % (AUTO) 0.5 %; EOSINOPHILS # (AUTO) 0.2 10^3/uL (0.0-0.7); EOSINOPHILS % (AUTO) 2.3 %; HGB - HEMOGLOBIN 14.6 g/dL (14.0-18.0); LYMPHOCYTES # (AUTO) 2.8 10^3/uL (1.5-3.5); LYMPHOCYTES % (AUTO) 38.1 %; MEAN CORPUSCULAR VOLUME 93.8 fL (80.0-94.0); MEAN PLATELET VOLUME 9.1 fL (7.4-11.4); MONOCYTES # (AUTO) 0.5 10^3/uL (0.0-1.0); MONOCYTES % (AUTO) 6.6 %; NEUTROPHILS # (AUTO) 3.7 10^3/uL (1.5-6.6); NEUTROPHILS % (AUTO) 50.5 %; PLT - PLATELET COUNT 216 10^3/uL (130-450); RED BLOOD COUNT 4.71 10^6/uL (4.70-6.10); RED CELL DISTRIBUTION WIDTH 14.2 % (12.0-15.0); WHITE BLOOD COUNT 7.4 x10^3/uL (4.8-10.8)
--- NOTE | 2020-09-17 12:43 | XRAY Report ---
PROCEDURE: Chest 1 View X-Ray INDICATIONS: dyspnea TECHNIQUE: One view of the chest was acquired. COMPARISON: None. FINDINGS: Surgical changes and devices: Numerous left axillary clips are seen. Lungs and pleura: The inferior most costophrenic angles are not included within the [id number] of this study. The visualized lungs are clear. No pneumothorax or large pleural effusion can be seen. Mediastinum: Mediastinal contours appear normal. Heart size is normal. Bones and chest wall: No suspicious bony lesions. Overlying soft tissues appear unremarkable. IMPRESSION: Limited portable chest examination, without an acute abnormality identified. Numerous left axillary clips are seen. Reviewed by: Sagar Medina MD on 09/17/2020 11:42 AM [facility] Approved by: Sagar Medina MD on 09/17/2020 11:42 AM [facility] Station ID: [id number]
[2020-09-17 13:05] LABS: ALBUMIN 3.7 g/dL (3.2-5.5); ALBUMIN/GLOBULIN RATIO 1.3 (1.0-2.2); BILIRUBIN,TOTAL 0.6 mg/dL (0.2-1.0); CALCIUM 9.6 mg/dL (8.5-10.3); CREATININE 1.2 mg/dL (0.6-1.2); TOTAL PROTEIN 6.5 g/dL (6.7-8.2)
[2020-09-17 13:40] VITALS: BP 135/82
[2020-09-17 13:45] LABS: MUDS CUTOFF CONCENTRATIONS CUTOFF CONC BELOW:
[2020-09-17 14:00] LABS: AMPHETAMINE SCREEN,URINE NEGATIVE (NEGATIVE); BENZODIAZEPINES SCREEN, URINE NEGATIVE (NEGATIVE); COCAINE SCREEN URINE NEGATIVE (NEGATIVE); METHADONE SCREEN, URINE NEGATIVE (NEGATIVE); METHAMPHETAMINES SCREEN, URINE NEGATIVE (NEGATIVE); OPIATE SCREEN, URINE POSITIVE (NEGATIVE)
[2020-09-17 14:01] LABS: OXYCODONE SCREEN, URINE NEGATIVE (NEGATIVE); PROPOXYPHENE SCREEN, URINE NEGATIVE (NEGATIVE); TRICYCLIC ANTIDEPRESSANT,URINE POSITIVE (NEGATIVE)
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
== END 2020-09-17 14:48 | disposition home or self-care (01) ==
LOC: ED 11:42
DX: R60.1 Generalized edema (principal); T39.396A Underdosing of other nonsteroidal anti-inflammatory drugs [NSAID], initial encounter; T39.316A Underdosing of propionic acid derivatives, initial encounter; Z86.718 Personal history of other venous thrombosis and embolism; Z85.71 Personal history of Hodgkin lymphoma; E11.9 Type 2 diabetes mellitus without complications; Z79.4 Long term (current) use of insulin
CPT/HCPCS: 36415; 71045; 80053; 80306; 83690; 83880; 84443; 84484; 84702; 85025; 93005; 93970; 99284

== ENCOUNTER 2020-10-22 10:53 | Outpatient (CLI) | payer MEDICAID ==
--- NOTE | 2020-10-22 13:19 | Ultrasound Report ---
PROCEDURE: Duplex Ext Veins Left INDICATIONS: UPPER EXT EDEMA TECHNIQUE: Real-time imaging, as well as color and pulse Doppler interrogation, was performed of the left upper extremity deep veins from the inferior neck to the antecubital fossa. COMPARISON: None. FINDINGS: The internal jugular vein, visualized portions of the subclavian vein, axillary, and brach ial veins are free of intraluminal thrombus. Where physically possible, the veins are normally compr essible. Color and pulse Doppler demonstrate normal intraluminal flow, with expected phasicity and p ulsatility. Additional scanning of the cephalic and basilic veins of the superficial system demonstr ate normal compressibility, without thrombus. There is subcutaneous edema within the forearm. IMPRESSION: No evidence of left upper extremity venous thrombosis. Nonspecific left forearm edema. Reviewed by: Rakesh Brandt DO on 10/22/2020 12:17 PM [facility] Approved by: Rakesh Brandt DO on 10/22/2020 12:17 PM [facility] Station ID: [id number]
== END 2020-10-22 10:54 | disposition home or self-care (01) ==
LOC: DI 10:53
PROVIDERS: ATTEND Family Medicine
DX: R60.0 Localized edema (principal)

== ENCOUNTER 2020-11-07 07:00 | Outpatient (CLI) | payer MEDICAID ==
[2020-11-07 13:21] LABS: CREATININE,URINE 267.7 mg/dL; MICROALBUM/CREATININE RATIO,UR 5.2 ug/mg (<30.0); MICROALBUMIN,URINE 1.4 mg/dL (0-300.0)
[2020-11-07 13:27] LABS: CALCIUM 9.6 mg/dL (8.5-10.3)
[2020-11-07 14:59] LABS: HEMOGLOBIN A1c% 7.3 % (4.27-6.07)
== END 2020-11-07 23:59 ==
LOC: LAB.WCP 07:00
PROVIDERS: ATTEND Family Medicine
DX: E11.9 Type 2 diabetes mellitus without complications (principal)
CPT/HCPCS: 36415; 80048; 82043; 82570; 83036

== ENCOUNTER 2020-12-02 08:55 | Outpatient (CLI) | payer MEDICAID ==
--- NOTE | 2020-12-02 13:20 | MRI Report ---
PROCEDURE: Cervical Spine W/O INDICATIONS: CERVICAL SPONDYLOSIS W/MYELOPATHY TECHNIQUE: Noncontrast sagittal T1 spin echo and T2 fast spin echo, sagittal STIR, foraminal oblique sagittal T2 fast spin echo, and axial gradient echo or T2 fast spin echo through the cervical spine. COMPARISON: None. FINDINGS: Image quality: Excellent. Alignment and Curvature: There is mild grade 1 retrolisthesis of C3 on C4 and C4 on C5. Bone Marrow: Marrow demonstrates normal overall signal. There is mild reactive signal within the en d plates adjacent to the C2-C3, C3-C4, C4-C5, C5-C6, and C6-C7 intervertebral discs. Spinal Cord: Visualized spinal cord has normal size and signal. No cerebellar tonsillar herniation. Paraspinous Soft Tissues: No paravertebral masses. Prevertebral soft tissues are normal in thicknes s. C2-C3: Moderate disc desiccation. Mild diffuse disc bulge. Mild canal stenosis. No foraminal stenosi s. C3-C4: Moderate disc desiccation. Mild diffuse disc bulge. Mild facet and uncovertebral hypertrophy bilaterally. Mild canal stenosis. Mild bilateral foraminal stenosis. C4-C5: Moderate disc desiccation. Mild diffuse disc bulge. Moderate facet and uncovertebral hypertro phy bilaterally. Moderate canal stenosis. Severe left and moderate right foraminal stenosis. Left C5 nerve root compression. C5-C6: Moderate disc height loss and desiccation. Mild diffuse disc bulge. Moderate facet and uncove rtebral hypertrophy bilaterally. Moderate to severe canal stenosis. Severe left and moderate right fo raminal stenosis. Left C6 nerve root compression. C6-C7: Moderate disc desiccation. Mild disc height loss. Moderate diffuse disc bulge. Moderate facet and uncovertebral hypertrophy bilaterally. Moderate canal stenosis. Severe bilateral foraminal steno sis with bilateral C7 nerve root compression. C7-T1: Moderate disc desiccation. Mild diffuse disc bulge. Moderate facet and uncovertebral hypertro phy bilaterally. Mild canal stenosis. Moderate left and mild right foraminal stenosis IMPRESSION: 1. Multilevel degenerative disc and facet disease, as well as uncovertebral hypertrophy. 2. Multilevel canal stenoses, worst at C5-C6, where there is moderate to severe canal stenosis. 3. Multilevel foraminal stenoses, worst at C4-C5, C5-C6, C6-C7, where there is associated intraforami nal nerve root compression. Recommend correlation with clinical symptoms to ascertain relevance of th madeline findings. Reviewed by: Deedee Fernando MD on 12/02/2020 1:18 PM PST Approved by: Deedee Fernando MD on 12/02/2020 1:18 PM PST Station ID: [id number]
--- OUTSIDE RECORDS SUMMARY | 2020-12-07 01:31 | EXTERNAL MEDICAL SUMMARY RPT | Continuity of Care Document ---
:1965 Demographics Phone Unavailable Preferred Language Persian Marital Status Unknown Jewish Affiliation Unknown Race Unknown Ethnic Group Unknown Author Organization [place] Address [address] [place] [address] Phone Care Team Providers Name Role Phone Demmlstephon Unavailable Unavailable Unavailable Unavailable Sureshstonewall Unavailable Unavailable Problems date description facility 2020-09-15 00:00:00 Cervical spondylosis with [facility] myelopathy [facility] 2020-09-15 00:00:00 Spondylosis of unspecified site [facility] without mention of myelopathy [facility] 2020-09-15 00:00:00 CERVICAL SPINE 2 OR 3 VW [facility] 2020-09-15 00:00:00 MRI CERVICAL SPINE WO [facility] 2020-09-15 00:00:00 Unspecified inflammatory [facility] spondylopathy, cervical region [facility] 2020-09-15 00:00:00 Other spondylosis with [facility] myelopathy, cervical region [facility] 2020-09-15 00:00:00 [facility] 2020-09-15 00:00:00 Health-related behavior [facility] 2020-09-15 00:00:00 Tobacco [facility] and exposure [facility] 2020-09-15 00:00:00 Exercise [facility] 2020-09-15 00:00:00 Details of drug misuse behavior [facility] [place] [facility] 2020-09-15 00:00:00 Cervical arthritis [facility] 2020-09-15 00:00:00 Alcohol use [facility] 2020-09-15 00:00:00 Tobacco smoking status NHIS [facility] 2020-09-15 00:00:[address] 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) USE OF [facility] INSULIN 2020-09-17 11:42 PERSONAL HISTORY OF HODGKIN [facility] LYMPHOMA 2020-09-17 11:42 PERSONAL HISTORY OF OTHER [facility] VENOUS THROMBOSIS AND EM 2020-09-23 12:01 TYPE 2 DIABETES MELLITUS WITH [facility] DIABETIC POLYNEUROPATHY 2020-09-23 12:01 DIETARY COUNSELING AND [facility] SURVEILLANCE 2020-09-23 12:01 OTHER SPECIFIED COUNSELING [facility] 2020-09-23 12:01 MATERIALS MANAGEMENT MANAGER (CURRENT) USE OF [facility] INSULIN 2020-10-07 00:00:00 MRI CERVICAL SPINE WO [facility] P rimary Care [facility] 2020-10-11 00:00:00 [facility] 2020-10-11 00:00:[address] [facility] Prim dc [facility] 2020-10-11 00:00:00 Edema of the upper extremity [facility] Primary Care [facility] 2020-10-11 00:00:00 Edema of lower extremity [facility] 2020-10-13 00:00:00 [facility] metacarpal bone(s) [facility] 2020-10-13 00:00:00 XR [facility] 2020-10-13 00:00:00 US VENOUS, UPPER EXTREMITY, [facility] UNILATERAL [facility] 2020-10-13 00:00:00 Displaced fracture of neck of [facility] fourth metacarpal bone, left [facility] hand, initial encounter for closed fracture 2020-10-13 00:00:00 Alcohol intake [facility] 2020-10-13 00:00:00 Health-related behavior [facility] Primary Care [facility] 2020-10-13 00:00:00 Tobacco use and exposure [facility] Primary Care [facility] 2020-10-13 00:00:00 Exercise [facility] 2020-10-13 00:00:00 Details of drug misuse behavior [facility] Primary Care [facility] 2020-10-13 00:00:00 Alcohol use [facility] 2020-10-13 00:00:00 Tobacco smoking status NHIS [facility] Primary [facility] 2020-10-13 00:00:00 Closed fracture of neck of [facility] Primary [facility] metacarpal bone [facility] 2020-10-13 00:00:00 Former smoker [facility] 2020-11-07 00:00 TYPE 2 DIABETES MELLITUS Merged with [facility] WITHOUT COMPLICATIONS 2020-11-07 00:00:00 MICROALBUMIN/CREAT RATIO [facility] Primary [facility] 2020-11-07 00:00:00 Other malignant lymphomas [facility] Primary Care involving lymph nodes of axilla [facility] and upper limb 2020-11-07 00:00:00 CT CHEST WO [facility] 2020-11-07 00:00:00 CT UPPER EXTREMITY WO - LT [facility] 2020-11-07 00:00:00 CT UPPER EXTREMITY W - LT [facility] 2020-11-07 00:00:00 Basic Metabolic Panel (BMP) [facility] Primary [facility] 2020-11-07 00:00:[address] [facility] dc [facility] [place] [facility] 2020-11-07 00:00:00 Other specified [facility] non-Hodgkin lymphoma, lymph [place] [facility] nodes of axilla and upper limb 2020-11-07 00:00:[address] [facility] Prim [facility] [place] [facility] 2020-11-07 00:00:00 [facility] [place] [facility] 2020-11-07 00:00:00 Tobacco use [facility] [place] [facility] 2020-11-07 00:00:00 [facility] [place] [facility] 2020-11-07 00:00:00 Details of drug misuse behavior [facility] [place] [facility] 2020-11-07 00:00:00 Alcohol [facility] [place] [facility] 2020-11-07 00:00:00 Tobacco smoking status NHIS [facility] Primary Care [place] [facility] 2020-11-07 00:00:00 Former smoker [facility] dc Care [place] [facility] 2020-11-07 00:00:00 Malignant lymphoma of lymph [facility] Primary Care nodes of axilla AND/OR upper [place] [facility] limb 2020-11-07 07:00 TYPE 2 DIABETES MELLITUS Merged with [facility] WITHOUT COMPLICATIONS 2020-11-08 00:00:[address] [facility] [place] [facility] 2020-11-09 00:00:00 Melanoma of skin, site [facility] Primary Care unspecified [place] [facility] 2020-11-09 00:00:00 CT [facility] W [facility] [place] [facility] 2020-11-09 00:00:00 CT ABDOMEN/PELVIS W [facility] 2020-11-09 00:00:[address] [facility] [place] [facility] 2020-11-09 00:00:00 Malignant melanoma [facility] skin, [facility] [place] [facility] 2020-11-09 00:00:00 Malignant melanoma of skin [facility] [place] [facility] 2020-12-02 08:55 SPINAL STENOSIS, CERVICAL [facility] REGION 2020-12-02 08:55 CERVICAL DISC DISORDER WITH [facility] MYELOPATHY, HIGH CERVICAL REGION 2020-12-02 08:56 MALIGNANT MELANOMA OF SKIN, [facility] UNSPECIFIED 2020-12-02 08:[address] 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 [place] Allergies date description facility ATORVASTATIN [facility] [place] NO KNOWN ALLERGIES [facility] [place] BUPROPION HCL [facility] diazepam [facility] [place] MILK/DAIRY PRODUCTS [facility] ATORVASTATIN [facility] [place] BEE VENOM [facility] [place] CAT HAIR EXTRACT [facility] [place] MOLDS \T\ SMUTS [facility]ANZAPINE [facility] [place] ROSUVASTATIN [facility] [place] TRAMADOL [facility] [place] TRAZODONE [facility] HYDROXYZINE [facility]CL [facility] [place]AVACHOL [facility] [place] NO KNOWN ENVIRONMENTAL ALLERGIES [facility] QAWALANGIN-CONTAINING COMPOUNDS [facility] scotch broom [facility] [place] NO ALLERGY INFORMATION AVAILABLE [facility] PENICILLINS [facility] NO KNOWN ALLERGIES [facility] GRAMINEAE POLLENS [facility] SHELLFISH [facility] ASPIRIN [facility] IBUPROFEN [facility] sertraline HCl * [facility] Penicillins [facility] Sulfa (Sulfonamide Antibiotics) [facility] lorazepam [facility] diazepam [facility] aspirin [facility] cephalexin [facility] doxycycline [facility] meperidine [facility] fluticasone [facility] citalopram [facility] Medications date description facility 2020-09-23 00:00:00 null [facility] [place] [facility] 2020-09-23 00:00:00 null [facility] [place] [facility] 2020-09-23 00:00:00 INSULIN LISPRO [facility] [place] [facility] 2020-09-23 00:00:00 INSULIN LISPRO [facility] [place] [facility] 2020-10-03 00:00:00 null [facility] [place] [facility] 2020-10-03 00:00:00 null [facility] [place] [facility] 2020-10-03 00:00:00 null [facility] [place] [facility] 2020-10-03 00:00:00 null [facility] [place] [facility] 2020-10-03 00:00:00 null [facility] [place] [facility] 2020-10-03 00:00:00 null [facility] [place] [facility] 2020-10-03 00:00:00 [facility]LOOD [facility] [place] [facility] 2020-10-03 00:00:00 INSULIN PEN NEEDLE [facility] [place] [facility] 2020-10-03 00:00:00 [facility] [place] [facility] 2020-10-11 00:00:00 null [facility] [place] [facility] 2020-10-11 00:00:00 null [facility] [place] [facility] 2020-10-11 00:00:00 FUROSEMIDE [facility] [place] [facility] 2020-10-11 00:00:00 FUROSEMIDE [facility] [place] [facility] Procedures date description facility 2020-09-15 00:00:00 CERVICAL SPINE 2 OR 3 [facility]W [facility] [place] [facility] date description facility 2020-09-15 00:00:00 MRI CERVICAL SPINE WO [facility] [place] [facility] date description facility 2020-09-15 00:00:00 [facility] [place] [facility] date description facility 2020-10-07 00:00:00 MRI CERVICAL SPINE WO [facility] [place] [facility] date description facility 2020-10-07 00:00:00 [facility] [place] [facility] date description facility 2020-10-13 00:00:00 XR HAND 2 VIEWS [facility] [place] [facility] date description facility 2020-10-13 00:00:00 US VENOUS, UPPER EXTREMITY, [facility] UN[facility]AL [place] [facility] date description facility 2020-10-13 00:00:00 [facility] [place] [facility] date description facility 2020-11-07 00:00:00 MICROALBUMIN/CREAT RATIO [facility] [facility] date description facility 2020-11-07 00:00:00 CT CHEST WO [facility] [place] [facility] date description facility 2020-11-07 00:00:00 CT UPPER EXTREMITY WO - [facility] [place] [facility] date description facility 2020-11-07 00:00:00 CT UPPER EXTREMITY W - LT [facility] [place] [facility] date description facility 2020-11-07 00:00:00 Basic Metabolic Panel (BMP) [facility] [place] [facility] date description facility 2020-11-07 00:00:00 HGBA1C [facility] [place] [facility] date description facility 2020-11-07 00:00:00 [facility] [place] [facility] date description facility 2020-11-08 00:00:00 CT CHEST W [facility] [place] [facility] date description facility 2020-11-08 00:00:00 [facility] [place] [facility] date description facility 2020-11-09 00:00:00 CT CHEST W [facility] [place] [facility] date description facility 2020-11-09 00:00:00 CT ABDOMEN/PELVIS W [facility] [place] [facility] date description facility 2020-11-09 00:00:00 [facility] [place] [facility] Results Social History date description facility 2020-09-15 00:00:00 Former smoker [facility] [place] [facility] date description facility 2020-10-13 00:00:00 Former smoker [facility] [place] [facility] date description facility 2020-11-07 00:00:00 Former smoker [facility] [place] [facility] Social History date description facility 2020-09-15 00:00:00 Former smoker [facility] [place] [facility] date description facility 2020-10-13 00:00:00 Former smoker [facility] [place] [facility] date description facility 2020-11-07 00:00:00 Former smoker [facility] [place] [facility] date description facility [id number]
== END 2020-12-02 08:56 | disposition home or self-care (01) ==
LOC: DI 08:55
PROVIDERS: ATTEND Family Medicine
DX: M50.01 Cervical disc disorder with myelopathy, high cervical region (principal); M48.02 Spinal stenosis, cervical region
CPT/HCPCS: 72141

== ENCOUNTER 2020-12-02 08:56 | Outpatient (CLI) | payer MEDICAID ==
[2020-12-02] MEDS ORDERED: IOVERSOL 320 50 ML VIAL ONE (09:37)
[2020-12-02] MEDS ORDERED: IOVERSOL 320 100 ML VIAL IVP ONE ×2 (09:37→13:16)
[2020-12-02] MEDS ORDERED: IOVERSOL 320 50 ML VIAL PO ONE (13:16)
--- NOTE | 2020-12-04 06:33 | CT Report ---
PROCEDURE: Abdomen/Pelvis W INDICATIONS: STAGE III MELANOMA CONTRAST: IV CONTRAST: Optiray 320 ml: 100 PO CONTRAST: Optiray 320 ml50 TECHNIQUE: After the administration of oral and intravenous contrast, 5 mm thick sections acquired from the diap hragms to the symphysis. 5 mm thick coronal and sagittal reformats were acquired. For radiation dos e reduction, the following was used: automated exposure control, adjustment of mA and/or kV accordin g to patient size. COMPARISON: Same day CT chest. FINDINGS: Image quality: Excellent. ABDOMEN: Lung bases: Please see separately dictated CT chest. Pulmonary nodules. Solid organs: Liver and spleen are normal in size. Suspect hepatic steatosis. No focal lesion is qasim ntified. Gallbladder is unremarkable. Biliary system is non dilated. Pancreas enhances normally. N o adrenal nodules. Kidneys demonstrate normal size and enhancement, without hydronephrosis. Nonobstr ucting kidney stones at the inferior pole the left kidney measuring up to 5 mm. Peritoneum and bowel: Stomach is mildly distended with oral contrast. Bowel loops demonstrate normal wall thickness and caliber. Appendix is unremarkable. No free fluid or air. Nodes and vessels: No retroperitoneal or mesenteric adenopathy by size criteria. Aorta and inferior vena cava are normal in size. Moderate calcified metastatic plaque. Miscellaneous: No ventral hernias. PELVIS: Genitourinary: Bladder wall thickness is normal. Miscellaneous: No inguinal hernias or adenopathy. Bones: No suspicious bony lesions. No vertebral body compression fractures. IMPRESSION: 1. No metastatic disease identified. No adenopathy below the diaphragm. 2. Suspect hepatic steatosis. 3. Nonobstructing left kidney stones. Please see separately dictated same day CT chest. Reviewed by: Hola Fernández MD on 12/02/2020 12:40 PM [facility] Approved by: Hola Fernández MD on 12/02/2020 12:40 PM [facility] Station ID: [id number]
--- NOTE | 2020-12-04 06:34 | CT Report ---
PROCEDURE: CHEST W INDICATIONS: STAGE III MELANOMA CONTRAST: IV CONTRAST: Optiray 320 ml: 100 PO CONTRAST: Optiray 320 ml50 TECHNIQUE: After the administration of intravenous contrast, 5 mm thick sections acquired from the pulmonary api brandi to the posterior costophrenic angles. 7 mm thick coronal MIP reformats were acquired. For radia tion dose reduction, the following was used: automated exposure control, adjustment of mA and/or kV according to patient size. COMPARISON: Same day CT abdomen and pelvis with IV contrast. FINDINGS: Image quality: Excellent. Lungs and pleura: No significant acute air space opacities. Mild pleural thickening along the right minor fissure. Left lower lobe pulmonary nodule measuring 4 mm, (3/181). Left lower lobe subpleural p ulmonary nodule measuring 5 mm, (3/198). No pleural effusions or pneumothorax. Central and periphera l airways are patent and normal in caliber. Mediastinum: Heart size is normal. No pericardial effusion. Mildly enlarged right hilar lymph node measuring 1.5 x 1.4 cm, (2/30). A few additional prominent lymph nodes. A subcarinal node measuring 1 .2 x 0.9 cm, (2/36). A prevascular node measuring 1.4 x 0.8 cm, (2/24). Thoracic aorta and central p ulmonary arteries are normal in size. Retroesophageal right subclavian artery, variant anatomy. Esoph shantel is normal in caliber. No hiatal hernia. Bones and chest wall: No suspicious bony lesions. No vertebral body compression fractures. No axil erlinda or supraclavicular adenopathy by size criteria. Left axillary lymph node dissection. Thyroid gla nd is unremarkable. Abdomen: Please see same day CT abdomen and pelvis. IMPRESSION: 1. Enlarged right axillary lymph node. Additional prominent mediastinal lymph nodes. This could be me tastatic or reactive. -Consider further evaluation with whole body PET/CT. 2. A few small pulmonary nodules. Largest measuring up to 5 mm in the left lower lobe. Reviewed by: Hola Fernández MD on 12/02/2020 12:34 PM [facility] Approved by: Hola Fernández MD on 12/02/2020 12:34 PM [facility] Station ID: [id number]
--- OUTSIDE RECORDS SUMMARY | 2020-12-07 01:31 | EXTERNAL MEDICAL SUMMARY RPT | Continuity of Care Document ---
:1965 Demographics Phone Unavailable Preferred Language Irish Marital Status Unknown Congregational Affiliation Unknown Race Unknown Ethnic Group Unknown Author Organization [place] Address [address] [place] [address] Phone Care Team Providers Name Role Phone Unavailable Unavailable Demmler Unavailable Unavailable [facility] Unavailable Unavailable Problems date description facility 2020-09-15 00:00:00 Cervical spondylosis with [facility] 2020-09-15 00:00:00 Spondylosis of unspecified site [facility] without mention of myelopathy [facility] 2020-09-15 00:00:00 CERVICAL SPINE 2 OR 3 VW [facility] 2020-09-15 00:00:00 MRI CERVICAL SPINE WO [facility] 2020-09-15 00:00:00 Unspecified inflammatory [facility] spondylopathy, cervical region [facility] 2020-09-15 00:00:00 Other spondylosis with [facility] myelopathy, cervical region [facility] 2020-09-15 00:00:00 [facility] 2020-09-15 00:00:00 Health-related behavior [facility] 2020-09-15 00:00:00 Tobacco [facility] and exposure [facility] 2020-09-15 00:00:00 Exercise [facility] 2020-09-15 00:00:00 Details of drug misuse behavior [facility] 2020-09-15 00:00:00 Cervical arthritis [facility] 2020-09-15 00:00:00 Alcohol use [facility] 2020-09-15 00:00:00 Tobacco smoking status NHIS [facility] 2020-09-15 00:00:00 Former smoker [facility] 2020-09-15 12:49 UNSPECIFIED INFLAMMATORY [facility] SPONDYLOPATHY, CERVICAL REGION 2020-09-17 11:42 TYPE 2 DIABETES MELLITUS [facility] WITHOUT COMPLICATIONS 2020-09-17 11:42 GENERALIZED EDEMA [facility] 2020-09-17 11:42 UNDERDOSING OF PROPIONIC ACID [facility] DERIVATIVES, INITIAL 2020-09-17 11:42 UNDERDOSING OF NONSTEROIDAL [facility] ANTI-INFLAMMATORY DRUG 2020-09-17 11:42 UTILITY OPERATOR YARN (CURRENT[facility] 2020-09-17 11:42 PERSONAL HISTORY OF HODGKIN [facility] LYMPHOMA 2020-09-17 11:42 PERSONAL HISTORY OF OTHER [facility] VENOUS THROMBOSIS AND EM 2020-09-23 12:01 TYPE 2 DIABETES MELLITUS WITH [facility] DIABETIC POLYNEUROPATHY 2020-09-23 12:01 DIETARY COUNSELING AND [facility] SURVEILLANCE 2020-09-23 12:01 OTHER SPECIFIED [facility]SELING [facility] 2020-09-23 12:01 UTILITY OPERATOR YARN (CURRENT) [facility] INSULIN 2020-10-07 00:00:00 MRI CERVICAL SPINE WO [facility] 2020-10-11 00:00:00 [facility] 2020-10-11 00:00:00 Localized edema [facility] 2020-10-11 00:00:00 Edema of the upper extremity [facility] 2020-10-11 00:00:00 [facility] 2020-10-13 00:00:00 [facility] metacarpal bone(s[facility] 2020-10-13 00:00:00 XR HAND [facility] 2020-10-13 00:00:00 US VENOUS, UPPER EXTREMITY, [facility] UNILATERAL [facility] 2020-10-13 00:00:00 Displaced fracture of neck of [facility] Care fourth metacarpal bone, left [facility] hand, initial encounter for closed fracture 2020-10-13 00:00:00 Alcohol intake [facility] 2020-10-13 00:00:00 Health-related behavior [facility] 2020-10-13 00:00:00 Tobacco use and exposure [facility] Primary [facility] 2020-10-13 00:00:00 Exercise [facility] 2020-10-13 00:00:00 Details of drug misuse behavior [facility] Primary Care [facility] 2020-10-13 00:00:00 Alcohol use [facility] 2020-10-13 00:00:00 Tobacco smoking status NHIS [facility] Primary [facility] 2020-10-13 00:00:00 Closed fracture of neck of [facility] Primary [facility] metacarpal bone [facility] 2020-10-13 00:00:00 Former smoker [facility] 2020-11-07 00:00 TYPE 2 DIABETES MELLITUS [facility] WITHOUT COMPLICATIONS 2020-11-07 00:00:00 MICROALBUMIN/CREAT RATIO [facility] Primary [facility] 2020-11-07 00:00:00 Other malignant lymphomas [facility] Care involving lymph nodes of axilla [facility] and upper limb 2020-11-07 00:00:00 CT CHEST WO [facility] 2020-11-07 00:00:00 CT UPPER EXTREMITY WO - [facility] 2020-11-07 00:00:00 CT UPPER EXTREMITY W - LT [facility] 2020-11-07 00:00:00 Basic Metabolic Panel (BMP) [facility] Primary [facility] 2020-11-07 00:00:00 HGBA1C [facility] 2020-11-07 00:00:00 Other specified [facility] non-Hodgkin lymphoma, lymph [facility] nodes of axilla and upper limb 2020-11-07 00:00:00 Alcohol intake [facility] 2020-11-07 00:00:00 Health[facility] 2020-11-07 00:00:00 Tobacco use and exposure [facility] 2020-11-07 00:00:00 [facility] 2020-11-07 00:00:00 Details of drug misuse behavior [facility] 2020-11-07 00:00:00 Alcohol [facility] 2020-11-07 00:00:00 Tobacco smoking status NHIS [facility] Care [facility] 2020-11-07 00:00:00 Former smoker [facility] dc [facility] 2020-11-07 00:00:00 Malignant lymphoma of lymph [facility] Primary Care nodes of axilla AND/OR upper [facility] limb 2020-11-07 07:00 TYPE 2 DIABETES MELLITUS [facility] WITHOUT COMPLICATIONS 2020-11-08 00:00:00 CT CHEST W [facility] 2020-11-09 00:00:00 Melanoma of skin, site [facility] unspecified [facility] 2020-11-09 00:00:00 CT [facility] 2020-11-09 00:00:00 CT ABDOMEN/PELVIS W [facility] 2020-11-09 00:00:00 BMP [facility] 2020-11-09 00:00:00 Malignant melanoma [facility] 2020-11-09 00:00:00 Malignant melanoma of skin [facility] 2020-12-02 08:55 SPINAL STENOSIS, CERVICAL [facility] REGION 2020-12-02 08:55 CERVICAL DISC DISORDER WITH [facility] MYELOPATHY, HIGH CERVICAL REGION 2020-12-02 08:56 MALIGNANT MELANOMA OF SKIN, [facility] UNSPECIFIED 2020-12-02 08:56 CALCULUS OF KIDNEY [facility] 2020-12-02 08:56 LOCALIZED ENLARGED LYMPH NODES [facility] 2020-12-02 08:56 OTHER NONSPECIFIC ABNORMAL [facility] FINDING OF LUNG FIELD 2020-12-07 12:30 TYPE 2 DIABETES MELLITUS WITH [facility] DIABETIC POLYNEUROPATHY 2020-12-07 12:30 DIETARY COUNSELING AND [facility] SURVEILLANCE 2020-12-07 12:30 OTHER SPECIFIED COUNSELING [facility] 2020-12-07 12:30 UTILITY OPERATOR YARN (CURRENT) [facility] INSULIN 2020-12-07 14:45 TACHYCARDIA, UNSPECIFIED [facility] 2020-12-07 14:45 LOCALIZED EDEMA [facility] [place] Allergies date description facility ATORVASTATIN [facility] NO KNOWN ALLERGIES [facility] [place] BUPROPION HCL [facility] diazepam [facility] [place] MILK/DAIRY PRODUCTS [facility] ATORVASTATIN [facility] [place] BEE VENOM [facility] [place] CAT HAIR EXTRACT [facility] [place] MOLDS \T\ SMUTS [facility] OLANZAPINE [facility] [place] ROSUVASTATIN [facility] [place] TRAMADOL [facility] [place] TRAZODONE [facility] [place] HYDROXYZINE HCL [facility] [place] PRAVACHOL [facility] [place] NO KNOWN ENVIRONMENTAL ALLERGIES [facility] NORTH FORK-CONTAINING COMPOUNDS [facility] scotch broom [facility] NO ALLERGY INFORMATION AVAILABLE [facility] PENICILLINS [facility] NO KNOWN ALLERGIES [facility] GRAMINEAE POLLENS [facility] SHELLFISH [facility] ASPIRIN [facility] IBUPROFEN [facility] sertraline HCl * [facility] Penicillins [facility] Sulfa (Sulfonamide Antibiotics) [facility] lorazepam [facility] diazepam [facility] aspirin [facility] cephalexin [facility] doxycycline [facility] meperidine [facility] fluticasone [facility] citalopram [facility] Medications date description facility 2020-09-23 00:00:00 null [facility] 2020-09-23 00:00:00 null [facility] 2020-09-23 00:00:00 INSULIN LISPRO [facility] 2020-09-23 00:00:00 INSULIN LISPRO [facility] 2020-10-03 00:00:00 null [facility] 2020-10-03 00:00:00 null [facility] 2020-10-03 00:00:00 null [facility] 2020-10-03 00:00:00 null [facility] 2020-10-03 00:00:00 null [facility] 2020-10-03 00:00:00 null [facility] 2020-10-03 00:00:00 [facility]COSE [facility]LOOD [facility] 2020-10-03 00:00:00 INSULIN PEN NEEDLE [facility] 2020-10-03 00:00:00 LANCETS [facility] 2020-10-11 00:00:00 null [facility] 2020-10-11 00:00:00 null [facility] 2020-10-11 00:00:00 FUROSEMIDE [facility] 2020-10-11 00:00:00 FUROSEMIDE [facility] Procedures date description facility 2020-09-15 00:00:00 CERVICAL SPINE 2 OR 3 [facility]W [facility] date description facility 2020-09-15 00:00:00 MRI CERVICAL SPINE WO [facility] date description facility 2020-09-15 00:00:00 [facility] date description facility 2020-10-07 00:00:00 MRI CERVICAL SPINE WO [facility] date description facility 2020-10-07 00:00:00 [facility] date description facility 2020-10-13 00:00:00 XR HAND 2 VIEWS [facility] date description facility 2020-10-13 00:00:00 US VENOUS, UPPER EXTREMITY, [facility] UN[facility] date description facility 2020-10-13 00:00:00 [facility] date description facility 2020-11-07 00:00:00 MICROALBUMIN/CREAT RATIO [facility] date description facility 2020-11-07 00:00:00 CT CHEST WO [facility] date description facility 2020-11-07 00:00:00 CT UPPER EXTREMITY WO - [facility] date description facility 2020-11-07 00:00:00 CT UPPER EXTREMITY W - LT [facility] date description facility 2020-11-07 00:00:00 Basic Metabolic Panel (BMP) [facility] date description facility 2020-11-07 00:00:00 HGBA1C [facility] date description facility 2020-11-07 00:00:00 [facility] date description facility 2020-11-08 00:00:00 CT CHEST W [facility] date description facility 2020-11-08 00:00:00 [facility] date description facility 2020-11-09 00:00:00 CT CHEST W [facility] date description facility 2020-11-09 00:00:00 CT ABDOMEN/PELVIS W [facility] date description facility 2020-11-09 00:00:00 [facility] Results Social History date description facility 2020-09-15 00:00:00 Former smoker [facility] date description facility 2020-10-13 00:00:00 Former smoker [facility] date description facility 2020-11-07 00:00:00 Former smoker [facility] Social History date description facility 2020-09-15 00:00:00 Former smoker [facility] date description facility 2020-10-13 00:00:00 Former smoker [facility] date description facility 2020-11-07 00:00:00 Former smoker [facility] date description facility [id number]
== END 2020-12-02 08:57 | disposition home or self-care (01) ==
LOC: DI 08:56
PROVIDERS: ATTEND Family Medicine
DX: C43.9 Malignant melanoma of skin, unspecified (principal); R59.0 Localized enlarged lymph nodes; R91.8 Other nonspecific abnormal finding of lung field; N20.0 Calculus of kidney
CPT/HCPCS: 71260; 74177; Q9967

== ENCOUNTER 2021-04-13 08:00 | Outpatient (CLI) | payer MEDICAID ==
[2021-04-13 18:03] LABS: CREATININE 1.2 mg/dL (0.6-1.2); POTASSIUM 4.7 mmol/L (3.5-5.0)
[2021-04-13 18:22] LABS: CREATININE,URINE 279.4 mg/dL; MICROALBUM/CREATININE RATIO,UR 10.4 ug/mg (<30.0); MICROALBUMIN,URINE 2.9 mg/dL (0-300.0)
[2021-04-13 20:00] LABS: ESTIMATED AVERAGE GLUCOSE 100 mg/dL (70-100); HEMOGLOBIN A1c% 5.1 % (4.27-6.07)
== END 2021-04-13 23:59 | disposition home or self-care (01) ==
LOC: LAB.WCP 08:00
PROVIDERS: ATTEND Family Medicine
DX: E11.9 Type 2 diabetes mellitus without complications (principal); M19.90 Unspecified osteoarthritis, unspecified site; F31.30 Bipolar disorder, current episode depressed, mild or moderate severity, unspecified
CPT/HCPCS: 36415; 80048; 82043; 82570; 83036

== ENCOUNTER 2021-07-04 12:46 | Outpatient (CLI) | payer MEDICAID ==
[2021-07-04 18:34] LABS: CALCIUM 9.7 mg/dL (8.5-10.3); CREATININE 1.2 mg/dL (0.6-1.2); POTASSIUM 4.3 mmol/L (3.5-5.0)
[2021-07-04 20:26] LABS: ESTIMATED AVERAGE GLUCOSE 108 mg/dL (70-100); HEMOGLOBIN A1c% 5.4 % (4.27-6.07)
== END 2021-07-04 23:59 | disposition home or self-care (01) ==
LOC: LAB.WCP 12:46
PROVIDERS: ATTEND Family Medicine
DX: E11.42 Type 2 diabetes mellitus with diabetic polyneuropathy (principal); F31.30 Bipolar disorder, current episode depressed, mild or moderate severity, unspecified; F41.9 Anxiety disorder, unspecified
CPT/HCPCS: 36415; 80048; 83036

== ENCOUNTER 2021-08-07 15:14 | Outpatient (CLI) | payer MEDICAID ==
--- NOTE | 2021-08-07 18:04 | MRI Report ---
PROCEDURE: Lumbar Spine W/O INDICATIONS: LUMBAR RADICULOPATHY TECHNIQUE: Noncontrast sagittal T1 spin echo and T2 fast echo, sagittal STIR, axial T1 and T2 fast spin echo thr ough the lumbar spine. In cases with scoliosis, additional coronal T2 fast spin echo may be performe d. COMPARISON: Correlation is made with prior lumbar plain films, 09/12/2020 FINDINGS: Image quality: Motion artifact is noted. Alignment and Curvature: There is normal bony alignment. Bone Marrow: Marrow is of normal overall signal. No acute vertebral body compression fractures. Spinal Cord: Conus medullaris terminates at the L1 level. Visualized cord demonstrates normal signa l and size. Paraspinous Soft Tissues: No paravertebral masses. T12-L1: Normal in appearance. L1-L2: Normal in appearance. L2-L3: The disc height is well-preserved. There is loss of disc signal seen. Mild disc bulge is se en, which is eccentric to the left. Note is made of an annular fissure posteriorly. There is mild to moderate facet hypertrophy seen. There is moderate left-sided and minimal right-sided neuroforaminal narrowing seen. Mild central canal narrowing is seen. L3-L4: The disc height is well-preserved. There is loss of disc signal seen. Mild to moderate dis c bulge is seen. Note is made of an annular fissure posteriorly. Mild to moderate facet hypertrophy can be seen. There is mild to moderate left-sided and moderate right-sided neuroforaminal narrowing s een. Mild central canal narrowing is seen. L4-L5: The disc height is well-preserved. There is loss of disc signal seen. Mild to moderate dis c bulge is seen, which is eccentric to the right. Mild to moderate facet hypertrophy is seen at this level. Note is made of an annular fissure posteriorly, as on series 401 image 5. Moderate facet hype rtrophy is seen. There is at least moderate bilateral neuroforaminal narrowing seen. A minimal degre e of compression can be seen upon the exiting nerve roots. Minimal central canal narrowing is seen. L5-S1: Moderate loss of disc height and signal are seen. Mild disc bulge is seen, with a mild centr al disc extrusion. Note is made of an annular fissure posteriorly. Mild facet hypertrophy is seen. There is moderate right-sided and moderate to severe left-sided neuroforaminal narrowing seen. There is a mild degree of compression seen upon the exiting left L5 nerve root. Mild central canal narrow ing is seen. IMPRESSION: Lumbar spine degenerative changes are seen, which are worst inferiorly. Reviewed by: Sagar Medina MD on 08/07/2021 5:03 PM [facility]UEROA Approved by: Sagar Medina MD on 08/07/2021 5:03 PM FIGUEROA Station ID: [id number]
== END 2021-08-07 15:15 | disposition home or self-care (01) ==
LOC: DI 15:14
PROVIDERS: ATTEND Nurse Practitioner Family
DX: M47.816 Spondylosis without myelopathy or radiculopathy, lumbar region (principal); M47.817 Spondylosis without myelopathy or radiculopathy, lumbosacral region

== ENCOUNTER 2021-09-05 08:00 | Outpatient (CLI) | payer MEDICAID ==
[2021-09-05 17:54] LABS: BASOPHILS % (AUTO) 0.5 %; EOSINOPHILS # (AUTO) 0.5 10^3/uL (0.0-0.7); EOSINOPHILS % (AUTO) 5.2 %; HCT - HEMATOCRIT 43.4 % (42.0-52.0); HGB - HEMOGLOBIN 14.2 g/dL (14.0-18.0); LYMPHOCYTES # (AUTO) 2.1 10^3/uL (1.5-3.5); LYMPHOCYTES % (AUTO) 23.9 %; MEAN CORPUSCULAR HEMOGLOBIN 31.3 pg (27.0-31.0); MEAN CORPUSCULAR HGB CONC 32.7 g/dL (32.0-36.0); MEAN CORPUSCULAR VOLUME 95.8 fL (80.0-94.0); MEAN PLATELET VOLUME 10.4 fL (7.4-11.4); MONOCYTES # (AUTO) 0.4 10^3/uL (0.0-1.0); MONOCYTES % (AUTO) 3.9 %; NEUTROPHILS # (AUTO) 5.9 10^3/uL (1.5-6.6); NEUTROPHILS % (AUTO) 66.2 %; PLT - PLATELET COUNT 269 10^3/uL (130-450); RED BLOOD COUNT 4.53 10^6/uL (4.70-6.10); WHITE BLOOD COUNT 8.9 x10^3/uL (4.8-10.8)
[2021-09-05 18:03] LABS: ALBUMIN 4.4 g/dL (3.2-5.5); ALBUMIN/GLOBULIN RATIO 1.5 (1.0-2.2); BILIRUBIN,TOTAL 0.6 mg/dL (0.2-1.0); CALCIUM 9.5 mg/dL (8.5-10.3); CREATININE 1.1 mg/dL (0.6-1.2); POTASSIUM 4.6 mmol/L (3.5-5.0); TOTAL PROTEIN 7.4 g/dL (6.7-8.2)
[2021-09-05 20:14] LABS: ESTIMATED AVERAGE GLUCOSE 120 mg/dL (70-100); HEMOGLOBIN A1c% 5.8 % (4.27-6.07)
== END 2021-09-05 23:59 | disposition home or self-care (01) ==
LOC: LAB.WCP 08:00
PROVIDERS: ATTEND Family Medicine
DX: E11.9 Type 2 diabetes mellitus without complications (principal); F23 Brief psychotic disorder; F31.30 Bipolar disorder, current episode depressed, mild or moderate severity, unspecified; R45.1 Restlessness and agitation
CPT/HCPCS: 36415; 80053; 83036; 85025

== ENCOUNTER 2021-12-05 12:31 | Outpatient (CLI) | payer MEDICARE, MEDICAID | END 2021-12-05 12:32 | disposition EMS.NT | LOC: EMS 12:31 | DX: Z03.89 Encounter for observation for other suspected diseases and conditions ruled out (principal) ==

== ENCOUNTER 2021-12-05 13:27 | Emergency (ER) | payer MEDICARE, MEDICAID ==
[2021-12-05 14:19] LABS: BASOPHILS % (AUTO) 0.4 %; EOSINOPHILS # (AUTO) 0.2 10^3/uL (0.0-0.7); EOSINOPHILS % (AUTO) 1.5 %; HCT - HEMATOCRIT 37.2 % (42.0-52.0); HGB - HEMOGLOBIN 13.2 g/dL (14.0-18.0); LYMPHOCYTES # (AUTO) 1.6 10^3/uL (1.5-3.5); LYMPHOCYTES % (AUTO) 15.2 %; MEAN CORPUSCULAR HEMOGLOBIN 32.4 pg (27.0-31.0); MEAN CORPUSCULAR HGB CONC 35.5 g/dL (32.0-36.0); MEAN CORPUSCULAR VOLUME 91.4 fL (80.0-94.0); MEAN PLATELET VOLUME 9.8 fL (7.4-11.4); MONOCYTES # (AUTO) 0.6 10^3/uL (0.0-1.0); MONOCYTES % (AUTO) 5.4 %; NEUTROPHILS % (AUTO) 77.1 %; PLT - PLATELET COUNT 258 10^3/uL (130-450); RED BLOOD COUNT 4.07 10^6/uL (4.70-6.10); RED CELL DISTRIBUTION WIDTH 12.3 % (12.0-15.0); WHITE BLOOD COUNT 10.4 x10^3/uL (4.8-10.8)
--- NOTE | 2021-12-05 14:21 | ED Physician Documentation ---
History of Present Illness - Stated complaint Stated Complaint: DIZZINESS - Chief complaint Chief Complaint: General - Additonal information Additional information: 56-year-old male is brought to the emergency department for evaluation of sylvia lucinations and increasingly catatonic behavior. His ex-/caregiver whom he lives with presents a history that suggests since June 2021 he has begun experiencing hallucinations. He is often speaking or responding to internal stimuli. Caregiver reports that he "flushes his hallucinations down the toilet." He also reports that he has hallucinations that are attempting to shove things in his rectum. His caregiver/ex- states that for the last 24 hours he has sat in a chair at the dining room table and has been nonresponsive. He is a diabetic for which he is controlled on insulin. His blood sugars yesterday were 97. There have been no falls or trauma. No fevers vomiting diarrhea, chest pain or shortness of air. Since hallucinations began in June the patient has been seen by therapist at [facility] but no new medications have been initiated. He does have a history of anxiety and depression for which he takes BuSpar, sertraline. He is also on valproic acid. Most of the history is obtained from his caregiver/ex-. The patient states that he is here for back pain. He is however oriented to person place and time and recognizes that he is in the emergency department. He has no acute focal neurodeficits. Meds: Metformin 500 mg twice daily, Seroquel 100 mg twice daily, sertraline 200 mg daily, Gabapentin 300 mg twice daily, atorvastatin 80 mg once daily, buprenor phine 1 patch weekly, buspirone 15 mg twice daily, valproic acid 250 mg daily, Lantus 70 units daily Mer (caregiver/ex): [phone] Review of Systems Unable to obtain: Other (health care social worker) Neurologic: denies: Generalized weakness, Focal weakness, Numbness, Seizure, Headache, Head injury Psychiatric: reports: Hallucinations, Delusions, Anxiety, Insomnia. denies: Suicidal, Homicidal Endocrine: reports: Reviewed and negative PD PAST MEDICAL HISTORY - Past Medical History Cardiovascular: None Respiratory: None Neuro: None Endocrine/Autoimmune: None GI: None : None HEENT: None Psych: None Musculoskeletal: None Derm: None - Past Surgical History Past Surgical History: Yes General: Appendectomy - Present Medications Home Medications: Ambulatory Orders Medication Instructions Recorded Confirmed Blood Sugar Diagnostic [Glucometer 1 each QID #120 strip 04/24/20 12/05/21 Strips] Blood-Glucose Meter [Glucometer] 1 each ONCE #1 each 04/24/20 12/05/21 Lancets 1 each QID #120 each 04/24/20 12/05/21 Naproxen 500 mg PO BID #20 tablet 07/06/20 12/05/21 Buprenorphine 1 each TD OAW 08/29/20 12/05/21 Buspirone HCl 15 mg PO BID 08/29/20 12/05/21 Divalproex ER [Depakote ER] 250 mg PO DAILY PM 08/29/20 12/05/21 Insulin Glargine [Lantus Solostar] 20 unit SUBQ DAILY 08/29/20 12/05/21 Quetiapine Fumarate 3 tab PO DAILY PM 08/29/20 12/05/21 Sertraline HCl [Zoloft] 2 tab PO DAILY 08/29/20 12/05/21 metFORMIN [Glucophage] 500 mg PO BIDWM 08/29/20 12/05/21 Insulin Glargine [Lantus Solostar] 50 unit SUBQ QPM 09/23/20 12/05/21 - Allergies Allergies/Adverse Reactions: Allergies Allergy/AdvReac Type Severity Reaction Status Date / Time diazepam [From Valium] Allergy Unknown Verified 12/05/21 13:38 - Social History Does the pt smoke?: No Smoking Status: Former smoker Does the pt drink ETOH?: No Does the pt have substance abuse?: No - Immunizations Immunizations are current?: Yes - POLST Patient has POLST: No PD ED PE NORMAL - General General: Alert and oriented X 3, No acute distress, Well developed/nourished - HEENT HEENT: Atraumatic, Ears normal, Moist mucous membranes - Neck Neck: Supple, no meningeal sign, No adenopathy - Cardiac Cardiac: RRR, No murmur, No gallop - Respiratory Respiratory: No respiratory distress - Abdomen Abdomen: Normal bowel sounds, Soft, Non tender - Back Back: No CVA TTP, No spinal TTP - Extremities Extremities: No deformity, No tenderness to palpate, Normal ROM s pain - Neuro Neuro: Alert and oriented X 3, ham smoker 2-12 intact, No motor deficit, No sensory deficit, Normal speech Eye Opening: Spontaneous Motor: Obeys Commands Verbal: Oriented GCS Score: 15 - Psych Psych: Normal mood (Denies auditory or visual hallucinations at the time of my evaluation.) Results - Vitals Vitals: Vital Signs - 24 hr 12/05/21 12/05/21 12/05/21 13:35 13:38 15:07 Temperature 36.0 C L 36.5 C Heart Rate 93 93 83 Respiratory 16 16 17 Rate Blood Pressure 134/73 H 134/73 H 111/98 H O2 Saturation 100 100 98 12/05/21 12/05/21 12/05/21 18:24 20:00 20:13 Temperature Heart Rate 80 94 89 Respiratory 18 11 L Rate Blood Pressure 130/78 115/77 119/77 O2 Saturation 97 98 99 Oxygen O2 Source Room air - EKG (time done) 1357 Rate: Rate (enter#) (81) Rhythm: NSR [place]: Normal Intervals: Normal AL QRS: Poor R wave progression Compare to prior EKG: Old EKG unavailable Computer interpretation: Agree with computer - Labs Labs: Laboratory Tests 12/05/21 12/05/21 12/05/21 14:08 14:08 14:08 WBC 10.4 RBC 4.07 L Hgb 13.2 L Hct 37.2 L MCV 91.4 MCH 32.4 H MCHC 35.5 RDW 12.3 Plt Count 258 MPV 9.8 Neut # (Auto) 8.0 H Lymph # (Auto) 1.6 [place] # (Auto) 0.6 Eos # (Auto) 0.2 Baso # (Auto) 0.0 Absolute Nucleated RBC 0.00 Nucleated RBC % 0.0 Sodium 139 Potassium 3.9 Chloride 99 L Carbon Dioxide 25 Anion Gap 15.0 H BUN 18 Creatinine 1.1 Estimated GFR (MDRD) 69 L Glucose 156 H Calcium 9.8 Total Bilirubin 0.6 AST 26 ALT 29 Alkaline Phosphatase 87 Total Creatine Kinase 69 Total Protein 7.6 Albumin 4.2 Globulin 3.4 Albumin/Globulin Ratio 1.2 Lipase 28 TSH 2.46 Urine Color Urine Clarity Urine pH Ur Specific [place] Urine Protein Urine Glucose (UA) Urine Ketones Urine Occult Blood Urine Nitrite Urine Bilirubin Urine Urobilinogen Ur Leukocyte Esterase Urine RBC Urine WBC Ur Squamous Epith Cells Urine Crystals Urine Bacteria Ur Microscopic Review Urine Culture Comments Nasal Adenovirus (PCR) Nasal B. parapertussis DNA (PCR) Nasal Coronavir 229E PCR Nasal Coronavir HKU1 PCR Nasal Coronavir NL63 PCR Nasal Coronavir OC43 PCR Nasal Enterovir/Rhinovir PCR Nasal Influenza B PCR Nasal Influenza A PCR Nasal Parainfluen 1 PCR Nasal Parainfluen 2 PCR Nasal Parainfluen 3 PCR Nasal Parainfluen 4 PCR Nasal RSV (PCR) Nasal B.pertussis DNA PCR Nasal C.pneumoniae (PCR) Jerad Human Metapneumo PCR Nasal M.pneumoniae (PCR) Nasal SARS-CoV-2 (PCR) Last Dose Date Last Dose Time Urine Opiates Screen Ur Oxycodone Screen Urine Methadone Screen Ur Propoxyphene Screen Acetaminophen < 10 L Ur Barbiturates Screen Valproic Acid Ur Tricyclics Screen Ur Phencyclidine Scrn Ur Amphetamine Screen U Methamphetamines Scrn U Benzodiazepines Scrn Urine Cocaine Screen U Cannabinoids Screen 12/05/21 12/05/21 12/05/21 14:08 14:47 18:34 WBC RBC Hgb Hct MCV MCH MCHC RDW Plt Count MPV Neut # (Auto) Lymph # (Auto) [place] # (Auto) Eos # (Auto) Baso # (Auto) Absolute Nucleated RBC Nucleated RBC % Sodium Potassium Chloride Carbon Dioxide Anion Gap BUN Creatinine Estimated GFR (MDRD) Glucose Calcium Total Bilirubin AST ALT Alkaline Phosphatase Total Creatine Kinase Total Protein Albumin Globulin Albumin/Globulin Ratio Lipase TSH Urine Color YELLOW Urine Clarity CLOUDY Urine pH 5.5 Ur Specific [place] 1.025 Urine Protein NEGATIVE Urine Glucose (UA) NEGATIVE Urine Ketones TRACE Urine Occult Blood TRACE-INTA Urine Nitrite NEGATIVE Urine Bilirubin NEGATIVE Urine Urobilinogen 0.2 (NORMAL) Ur Leukocyte Esterase SMALL H Urine RBC 0-5 Urine WBC 6-10 H Ur Squamous Epith Cells NONE SEEN Urine Crystals >50 Uric Acid Urine Bacteria Few Ur Microscopic Review INDICATED Urine Culture Comments INDICATED Nasal Adenovirus (PCR) NOT DETECTED Nasal B. parapertussis DNA (PCR) NOT DETECTED Nasal Coronavir 229E PCR NOT DETECTED Nasal Coronavir HKU1 PCR NOT DETECTED Nasal Coronavir NL63 PCR NOT DETECTED Nasal Coronavir OC43 PCR NOT DETECTED Nasal Enterovir/Rhinovir PCR NOT DETECTED Nasal Influenza B PCR NOT DETECTED Nasal Influenza A PCR NOT DETECTED Nasal Parainfluen 1 PCR NOT DETECTED Nasal Parainfluen 2 PCR NOT DETECTED Nasal Parainfluen 3 PCR NOT DETECTED Nasal Parainfluen 4 PCR NOT DETECTED Nasal RSV (PCR) NOT DETECTED Nasal B.pertussis DNA PCR NOT DETECTED Nasal C.pneumoniae (PCR) NOT DETECTED Jerad Human Metapneumo PCR NOT DETECTED Nasal M.pneumoniae (PCR) NOT DETECTED Nasal SARS-CoV-2 (PCR) NOT DETECTED Last Dose Date UNKNOWN Last Dose Time UNKNOWN Urine Opiates Screen NEGATIVE Ur Oxycodone Screen NEGATIVE Urine Methadone Screen NEGATIVE Ur Propoxyphene Screen NEGATIVE Acetaminophen Ur Barbiturates Screen NEGATIVE Valproic Acid 29.0 Ur Tricyclics Screen POSITIVE H Ur Phencyclidine Scrn NEGATIVE Ur Amphetamine Screen NEGATIVE U Methamphetamines Scrn NEGATIVE U Benzodiazepines Scrn NEGATIVE Urine Cocaine Screen NEGATIVE U Cannabinoids Screen NEGATIVE - Rads (name of study) CT head Radiology: Final report received (No acute intracranial process) PD MEDICAL DECISION MAKING - ED course Complexity details: reviewed results, re-evaluated patient, considered differential, d/w patient, d/w family ED course: 56-year-old diabetic male was brought to the emergency department for a mental health evaluation. He is caregiver and ex- Reports that since June he has begun having hallucinations in which he is often speaking or talking to things that are not there. He flushes his hallucinations down the toilet. For much of the last 24 hours he sat any trancelike state at the dining room table. She is concerned about the increasing frequency of his hallucinations as well as his behaviors. He is being seen by therapist but no antipsychotics have been initiated. He does have a history of chronic back pain for which he is on a buprenorphine patch once weekly. He he also has a history of depression for which he takes BuSpar and sertraline. Screening labs are without acute findings or abnormalities. His toxicology is positive for tricyclics only. He did not present with any focal deficits. A CT of the head shows no acute findings. Given the new onset of hallucinations without an obvious medical cause we will request telepsych evaluation. he may benefit from the initiation of a different atypical antipsychotics vs in patient stabilization. 1730: Dr. Guadalupe of tele-psych has spoken to the patient and his caregiver. He does feel that the patient would benefit from voluntary inpatient psychiatric hospitalization for further stabilization of his hallucinations and delusions. If the patient were to request to leave the emergency department that would be a reasonable alternative. He does recommend that we discontinue the Depakote and the buspirone as he does not feel that they are effective and it would reduce pill burden. He would recommend increasing his Seroquel to 150 mg q. at bedtime but continue the 100 mg every morning. Continue the sertraline 200 mg daily Telepsych note findings have been indicated to the nursing staff. Respiratory PCR panel is pending. We will attempt to find inpatient bed and social work will likely see in the a.m. PT will be signed out to night time provider Departure - Departure Disposition: 65 Psych Hosp/Unit DC/Xfer Clinical Impression: Hallucinations Condition: Stable Record reviewed to determine appropriate education?: Yes
--- NOTE | 2021-12-05 14:36 | CT Report ---
PROCEDURE: HEAD WO INDICATIONS: hallucincations and now catatonia TECHNIQUE: Noncontrast 4.5 mm thick angled axial sections acquired from the foramen magnum to the vertex. For r adiation dose reduction, the following was used: automated exposure control, adjustment of mA and/or kV according to patient size. COMPARISON: None. FINDINGS: Image quality: Excellent. CSF spaces: Basal cisterns are patent. No extra-axial fluid collections. Ventricles are normal in size and shape. Brain: No midline shift. No intracranial masses or hemorrhage. There is mild cerebral volume loss. Mild periventricular matter chronic small vessel ischemic changes are present. Small old lacunar infa rct versus dilated perivascular space in the left basal ganglia. Skull and face: Calvarium and visualized facial bones are intact, without suspicious lesions. Sinuses: Visualized sinuses and mastoids are clear. IMPRESSION: No acute intracranial abnormality. Reviewed by: Mike Laura MD on 12/05/2021 2:35 PM PST Approved by: Mike Laura MD on 12/05/2021 2:35 PM PST Station ID: [id number]
[2021-12-05 14:46] LABS: ACETAMINOPHEN < 10 ug/mL (10-30); ALBUMIN 4.2 g/dL (3.2-5.5); ALBUMIN/GLOBULIN RATIO 1.2 (1.0-2.2); ALKALINE PHOSPHATASE 87 IU/L (42-121); ALT ALANINE AMINOTRANSFERASE 29 IU/L (10-60); AST ASPARTATE AMINOTRANSFERASE 26 IU/L (10-42); BILIRUBIN,TOTAL 0.6 mg/dL (0.2-1.0); BUN - BLOOD UREA NITROGEN 18 mg/dL (6-20); CALCIUM 9.8 mg/dL (8.5-10.3); CARBON DIOXIDE - CO2 25 mmol/L (21-32); CHLORIDE 99 mmol/L (101-111); CK- CREATINE KINASE 69 IU/L (22-269); CREATININE 1.1 mg/dL (0.6-1.2); GFR - MDRD 69 (>89); GLUCOSE 156 mg/dL (70-100); LIPASE 28 U/L (22-51); POTASSIUM 3.9 mmol/L (3.5-5.0); SODIUM 139 mmol/L (135-145); TOTAL PROTEIN 7.6 g/dL (6.7-8.2)
[2021-12-05 14:54] LABS: MUDS CUTOFF CONCENTRATIONS CUTOFF CONC BELOW:
[2021-12-05 15:00] LABS: BILIRUBIN,URINE NEGATIVE (NEGATIVE); GLUCOSE, URINE (UA) NEGATIVE (NEGATIVE); KETONES,URINE (UA) TRACE mg/dL (NEGATIVE); LEUKOCYTE ESTERASE, URINE SMALL (NEGATIVE); NITRITE,URINE NEGATIVE (NEGATIVE); OCCULT BLOOD,URINE TRACE-INTA (NEGATIVE); PH,URINE 5.5 PH (5.0-7.5); PROTEIN,URINE NEGATIVE (NEGATIVE); UROBILINOGEN,URINE 0.2 (NORMAL) E.U./dL (NORMAL)
[2021-12-05 15:05] LABS: CLARITY,URINE CLOUDY (CLEAR)
[2021-12-05 15:29] LABS: BACTERIA,URINE Few /HPF (None Seen); CRYSTALS,URINE >50 Uric Acid /LPF; RBC,URINE 0-5 /HPF (0-5); SQUAMOUS EPITHELIAL CELL,UR NONE SEEN (<= Few)
[2021-12-05 15:30] LABS: AMPHETAMINE SCREEN,URINE NEGATIVE (NEGATIVE); BARBITURATE SCREEN,UR NEGATIVE (NEGATIVE); BENZODIAZEPINES SCREEN, URINE NEGATIVE (NEGATIVE); COCAINE SCREEN URINE NEGATIVE (NEGATIVE); METHADONE SCREEN, URINE NEGATIVE (NEGATIVE); METHAMPHETAMINES SCREEN, URINE NEGATIVE (NEGATIVE); OPIATE SCREEN, URINE NEGATIVE (NEGATIVE); OXYCODONE SCREEN, URINE NEGATIVE (NEGATIVE); PROPOXYPHENE SCREEN, URINE NEGATIVE (NEGATIVE); THC CANNABINOID SCREEN, URINE NEGATIVE (NEGATIVE); TRICYCLIC ANTIDEPRESSANT,URINE POSITIVE (NEGATIVE)
--- NOTE | 2021-12-05 17:35 | TELEPSYCH PHYS NOTE ---
Telepsych Consultation Note Consult: [employer] Name: Jasvir Groves :1965 Date: 12/05/2021 Time:7:10pm EST Location of patient: [facility] Location of doctor: [place] Length of consult: 60 minutes This evaluation was conducted via video telepsychiatry with the assistance of onsite staff Reason for consult: hallucinations Requested by: ED physician History of Present Illness: 56 year old male with hx of hallucinations, DM, back pain. Pt noted to be brought to the ED for evaluation of hallucinations which have been present since around June 2021. Pt noted to live with his ex who is his caregiver also. Pt was reported to see things, responding to internal stimuli by talking to them, flushing hallucinations down toilet and feels that hallucinations are putting things in his rectum. Over the last day he was sitting in a chair for 24 hours, refused to move and slept in the chair. Medical work up in the ED did not show any significant metabolic derangements, CT head with no acute findings, Glucose within normal limits , No falls/trauma or acute medical issues. Valproic acid level was 29.0 Pts psychiatric medications noted to be Quetiapine 100mg BID, Sertraline 200mg daily, Valproic Acid 250mg daily , Gabapentin 300mg BID, Buspirone 15mg BID. Pt was limited in his interview and providing only minimal details. Pt knows that he is in the hospital and states he came in for a cat scan for my head as he reported having back pain. He admits to sitting in a chair all day yesterday but would not provide any details about this. Pt stated the date was Jan 06, 2022. He felt that he takes too many pills daily and stated he takes 16 pills When asked which medications he takes he reports: Sertraline, baclofen, patch on my back. With prompting he acknowledged taking Depakote and Seroquel. Pt reporting various psychotic content and felt that he has having voices coming from his coccyx which began after he fell. He reported that the [facility] was after him and trying to harm him. Pt was somewhat disorganized and tangential at times. Pt admitted to feeling paranoid but stated that he does not know why he feels that way. He denied visual hallucinations. Collateral contacted Yes ex-/caregiver who was in the room with him She reported that pt would not respond to her much yesterday and sat in the chair all day and night and would push her away when she tried to get him out of the chair. She reports that since June 2021 he has been declining and that he has been responding to internal stimuli and to people who were not there. Pt fights with people who live inside him and sometimes can swing his arms in response to fighting, has hit his arm yesterday or flush hallucination the toilet . Pt has not done anything dangerous to himself or to her. He has varying levels of sleep from sleeping all day to none at all. She feels he may have possible depression as pt has had low energy (3 months), low appetite (for 3-4 weeks), has chronic sleep issues where he can be up all night or asleep all day. Has not had SI or any prior suicide attempts. Pt is getting treatment at [facility], has psychiatric care there. Has a therapist there. To her knowledge his psychiatric medications are as follows: Quetiapine- has been on for years- recently increased 2 months ago Sertraline- one of the new medications, has been on for at least 3 years Depakote- on for many years Psychiatric History/Treatment History: Past diagnoses: unknown per pt or partner Hospitalizations: None per caregiver Current Treatment: as above Suicide Assessment: PSS-3: 1) Over the past 2 weeks have you felt down, depressed or hopeless? Yes 2) Over the past 2 weeks have you had thoughts of killing yourself? No 3) Have you ever in your life attempted to kill yourself? No PSS-3 Secondary Screen Scoring: (Mild/Moderate/Severe) Mild (0-2) No current attempt and no plan/intent [employer] (T[employer])-based Safety Assessment: Risk Factors Stressors: none identified Attempts/Self-injury: denied Impulsivity: No Drug/Alcohol History: Denied, last drink was over 6 months ago Trauma history: Denied by caregiver Access to firearms: Yes- has one gun at home, gun is in his room and in his night stand, no ammo, caregiver took away ammo HI/Violence/Property destruction: Caregiver denied Legal: Caregiver Family Psych History: Schizophrenia paternal aunt and grandmother Family History of suicide: Yes- step sister killed herself Protective Factors Internal : limited External: Social supports/ Therapeutic relationships: es- who is a caregiver Relationship history: Living situation: lives in his home with ex /caregiver Employment: No Education: high school Responsibility to family/children/work: two daughters Future orientation: Y Medical History: see chart Medications & Freq: see above Allergies: Valium Mental Status Exam: Appearance and attire: hospital attire, lying in bed Attitude and behavior: withdrawn Psychomotor agitation/abnormal movements: +PMR Speech: soft spoken, delayed responses Affect and mood: dysthymic Association and thought processes: tangential at times Thought content: denied SI/HI Perception: +AH, +paranoia Sensorium, memory, and orientation: oriented to self, place, year but not month/date Intellectual functioning: poor Insight and judgment: poor/poor Impression/Risk Assessment: Current Suicide Risk Elevated?: No Current Violence Risk Elevated?: No Issues with ability to care for self?: Yes Summary: 56 year old male with hx of hallucinations, DM, back pain. Pt presents with acute worsening of psychotic symptoms, worsening hallucinations which pt believes originate from his coccyx, responding to internal stimuli, paranoia and delusions that the [facility] is out to harm him. Pts medical work up does not reveal any acute cause of his psychotic symptoms. Pt and caregiver are not aware of what his formal psychiatric diagnosis are but he has been on Quetiapine/Sertraline/Depakote for many years. Discussed options for treatment and pt was agreeable to voluntary psychiatric hospitalization. His caregiver also felt that this was the most appropriate course of action given his decompensation over the last few weeks. Pt was agreeable to making adjustments to his medications while awaiting a bed. Discussed increasing Quetiapine given worsening psychotic symptoms and pt was agreeable. Pt was agreeable to stopping Depakote and Buspirone as he wanted to reduce pill burden and could not identify any significant benefit from these medications in addition to his VPA level being sub therapeutic. Diagnosis: Hallucinations CPT code: 09702 Treatment Plan: Level of Care: voluntary inpatient psychiatric hospitalization Psychiatric Clearance: Not at this time Observation level 1:1 needed?: defer to ED team Pharmacological: Patient psychotic? Yes -Increase Quetiapine to 100mg PO qAM and 150mg PO qHS (previous dose 100mg BID) -continue Sertraline 200mg PO daily -discontinue Buspirone per pt preference and lack of identifiable benefit and to reduce pill burden -discontinue Valproic Acid per pt preference, to reduce pill burden and to reduce risk of sedation as Quetiapine is being adjusted Therapy: defer given pts current psychosis Follow up needed while in hospital?: can reconsult if needed Discussed plan with onsite senior project leader/team lead, who? Yes- ED attending List names and roles of persons who participated in consult: Davey Guadalupe MD
[2021-12-05 19:53] LABS: B. PARAPERTUSSIS- RESP PCR PAN NOT DETECTED; B. PERTUSSIS- RESP PCR PANEL NOT DETECTED; C. PNEUMONIAE- RESP PCR PANEL NOT DETECTED; CORONAVIRUS 229E-RESP PCR NOT DETECTED; CORONAVIRUS HKU1-RESP PCR NOT DETECTED; CORONAVIRUS NL63-RESP PCR NOT DETECTED; CORONAVIRUS OC43-RESP PCR NOT DETECTED; HUMAN METAPNEUMOVIRUS NOT DETECTED; INFLUENZA A- RESP PCR PANEL NOT DETECTED; INFLUENZA B - RESP PCR PANEL NOT DETECTED; M. PNEUMONIAE- RESP PCR PANEL NOT DETECTED; PARAINFLUENZA VIRUS 1 NOT DETECTED; PARAINFLUENZA VIRUS 2 NOT DETECTED; PARAINFLUENZA VIRUS 3 NOT DETECTED; PARAINFLUENZA VIRUS 4 NOT DETECTED; RHINOVIRUS/ENTEROVIRUS NOT DETECTED; RSV- RESP PCR PANEL NOT DETECTED; SARS-CoV-2 -RESP PCR PANEL NOT DETECTED
[2021-12-05] MEDS ORDERED: QUEtiapine 100 MG TABLET PO ONE (21:00)
[2021-12-05] MEDS ORDERED: QUEtiapine 25 MG TABLET ONE (21:24)
[2021-12-06] MEDS ORDERED: QUEtiapine 100 MG TABLET PO STA (08:55)
[2021-12-06] MEDS ORDERED: SERTRALINE 50 MG TABLET PO SCH (09:00)
[2021-12-06 14:05] VITALS: BP 115/76
--- NOTE | 2021-12-06 15:00 | ED Physician Documentation ---
History of Present Illness - Stated complaint Stated Complaint: DIZZINESS - Chief complaint Chief Complaint: General PD PAST MEDICAL HISTORY - Past Medical History Past Medical History: No Cardiovascular: None Respiratory: None Neuro: None Endocrine/Autoimmune: None GI: None : None HEENT: None Psych: None Musculoskeletal: None Derm: None - Past Surgical History Past Surgical History: Yes General: Appendectomy - Present Medications Home Medications: Ambulatory Orders Medication Instructions Recorded Confirmed Blood Sugar Diagnostic [Glucometer 1 each QID #120 strip 04/24/20 12/05/21 Strips] Blood-Glucose Meter [Glucometer] 1 each ONCE #1 each 04/24/20 12/05/21 Lancets 1 each MC QID #120 each 04/24/20 12/05/21 Naproxen 500 mg PO BID #20 tablet 07/06/20 12/05/21 Buprenorphine 1 each TD OAW 08/29/20 12/05/21 Buspirone HCl 15 mg PO BID 08/29/20 12/05/21 Divalproex ER [Depakote ER] 250 mg PO DAILY PM 08/29/20 12/05/21 Insulin Glargine [Lantus Solostar] 20 unit SUBQ DAILY 08/29/20 12/05/21 Quetiapine Fumarate 3 tab PO DAILY PM 08/29/20 12/05/21 Sertraline HCl [Zoloft] 2 tab PO DAILY 08/29/20 12/05/21 metFORMIN [Glucophage] 500 mg PO BIDWM 08/29/20 12/05/21 Insulin Glargine [Lantus Solostar] 50 unit SUBQ QPM 09/23/20 12/05/21 - Allergies Allergies/Adverse Reactions: Allergies Allergy/AdvReac Type Severity Reaction Status Date / Time diazepam [From Valium] Allergy Unknown Verified 12/05/21 13:38 - Social History Does the pt smoke?: No Smoking Status: Never smoker Does the pt drink ETOH?: No Does the pt have substance abuse?: No - Immunizations Immunizations are current?: Yes - POLST Patient has POLST: No Results - Vitals Vitals: Vital Signs - 24 hr 12/05/21 12/05/21 12/05/21 15:07 18:24 20:00 Temperature Heart Rate 83 80 94 Respiratory 17 18 Rate Blood Pressure 111/98 H 130/78 115/77 O2 Saturation 98 97 98 12/05/21 12/05/21 12/05/21 20:13 22:00 23:24 Temperature Heart Rate 89 83 84 Respiratory 11 L 13 11 L Rate Blood Pressure 119/77 123/85 H 127/70 O2 Saturation 99 98 97 12/06/21 12/06/21 12/06/21 00:00 02:00 02:03 Temperature Heart Rate 80 70 70 Respiratory 13 13 Rate Blood Pressure 119/72 108/66 108/66 O2 Saturation 96 96 96 12/06/21 12/06/21 12/06/21 03:00 03:41 04:39 Temperature Heart Rate 72 69 Respiratory 12 12 Rate Blood Pressure 103/73 O2 Saturation 96 98 12/06/21 12/06/21 12/06/21 05:43 05:44 06:48 Temperature 36.4 C L Heart Rate 65 68 Respiratory 12 12 12 Rate Blood Pressure 103/73 100/69 O2 Saturation 97 98 12/06/21 12/06/21 08:07 14:03 Temperature 37.1 C Heart Rate 80 87 Respiratory 14 20 Rate Blood Pressure 99/69 115/76 O2 Saturation 98 Oxygen O2 Source Room air - Labs Labs: Microbiology 12/05/21 14:47 Urine Culture - Final Urine,Clean Catch 10-50,000 COLONIES/ML Polymicrobial growth including potential pathogens. This is suggestive of skin or other contamination. Laboratory Tests 12/05/21 12/05/21 12/05/21 13:54 14:08 14:08 WBC 10.4 RBC 4.07 L Hgb 13.2 L Hct 37.2 L MCV 91.4 MCH 32.4 H MCHC 35.5 RDW 12.3 Plt Count 258 MPV 9.8 Neut # (Auto) 8.0 H Lymph # (Auto) 1.6 [place] # (Auto) 0.6 Eos # (Auto) 0.2 Baso # (Auto) 0.0 Absolute Nucleated RBC 0.00 Nucleated RBC % 0.0 Sodium 139 Potassium 3.9 Chloride 99 L Carbon Dioxide 25 Anion Gap 15.0 H BUN 18 Creatinine 1.1 Estimated GFR (MDRD) 69 L Glucose 156 H POC Whole Bld Glucose 134 H Calcium 9.8 Total Bilirubin 0.6 AST 26 ALT 29 Alkaline Phosphatase 87 Total Creatine Kinase 69 Total Protein 7.6 Albumin 4.2 Globulin 3.4 Albumin/Globulin Ratio 1.2 Lipase 28 TSH Urine Color Urine Clarity Urine pH Ur Specific [place] Urine Protein Urine Glucose (UA) Urine Ketones Urine Occult Blood Urine Nitrite Urine Bilirubin Urine Urobilinogen Ur Leukocyte Esterase Urine RBC Urine WBC Ur Squamous Epith Cells Urine Crystals Urine Bacteria Ur Microscopic Review Urine Culture Comments Nasal Adenovirus (PCR) Nasal B. parapertussis DNA (PCR) Nasal Coronavir 229E PCR Nasal Coronavir HKU1 PCR Nasal Coronavir NL63 PCR Nasal Coronavir OC43 PCR Nasal Enterovir/Rhinovir PCR Nasal Influenza B PCR Nasal Influenza A PCR Nasal Parainfluen 1 PCR Nasal Parainfluen 2 PCR Nasal Parainfluen 3 PCR Nasal Parainfluen 4 PCR Nasal RSV (PCR) Nasal B.pertussis DNA PCR Nasal C.pneumoniae (PCR) Jerad Human Metapneumo PCR Nasal M.pneumoniae (PCR) Nasal SARS-CoV-2 (PCR) Last Dose Date Last Dose Time Urine Opiates Screen Ur Oxycodone Screen Urine Methadone Screen Ur Propoxyphene Screen Acetaminophen < 10 L Ur Barbiturates Screen Valproic Acid Ur Tricyclics Screen Ur Phencyclidine Scrn Ur Amphetamine Screen U Methamphetamines Scrn U Benzodiazepines Scrn Urine Cocaine Screen U Cannabinoids Screen Ethyl Alcohol 12/05/21 12/05/21 12/05/21 14:08 14:08 14:47 WBC RBC Hgb Hct MCV MCH MCHC RDW Plt Count MPV Neut # (Auto) Lymph # (Auto) [place] # (Auto) Eos # (Auto) Baso # (Auto) Absolute Nucleated RBC Nucleated RBC % Sodium Potassium Chloride Carbon Dioxide Anion Gap BUN Creatinine Estimated GFR (MDRD) Glucose POC Whole Bld Glucose Calcium Total Bilirubin AST ALT Alkaline Phosphatase Total Creatine Kinase Total Protein Albumin Globulin Albumin/Globulin Ratio Lipase TSH 2.46 Urine Color YELLOW Urine Clarity CLOUDY Urine pH 5.5 Ur Specific [place] 1.025 Urine Protein NEGATIVE Urine Glucose (UA) NEGATIVE Urine Ketones TRACE Urine Occult Blood TRACE-INTA Urine Nitrite NEGATIVE Urine Bilirubin NEGATIVE Urine Urobilinogen 0.2 (NORMAL) Ur Leukocyte Esterase SMALL H Urine RBC 0-5 Urine WBC 6-10 H Ur Squamous Epith Cells NONE SEEN Urine Crystals >50 Uric Acid Urine Bacteria Few Ur Microscopic Review INDICATED Urine Culture Comments INDICATED Nasal Adenovirus (PCR) Nasal B. parapertussis DNA (PCR) Nasal Coronavir 229E PCR Nasal Coronavir HKU1 PCR Nasal Coronavir NL63 PCR Nasal Coronavir OC43 PCR Nasal Enterovir/Rhinovir PCR Nasal Influenza B PCR Nasal Influenza A PCR Nasal Parainfluen 1 PCR Nasal Parainfluen 2 PCR Nasal Parainfluen 3 PCR Nasal Parainfluen 4 PCR Nasal RSV (PCR) Nasal B.pertussis DNA PCR Nasal C.pneumoniae (PCR) Jerad Human Metapneumo PCR Nasal M.pneumoniae (PCR) Nasal SARS-CoV-2 (PCR) Last Dose Date UNKNOWN Last Dose Time UNKNOWN Urine Opiates Screen NEGATIVE Ur Oxycodone Screen NEGATIVE Urine Methadone Screen NEGATIVE Ur Propoxyphene Screen NEGATIVE Acetaminophen Ur Barbiturates Screen NEGATIVE Valproic Acid 29.0 Ur Tricyclics Screen POSITIVE H Ur Phencyclidine Scrn NEGATIVE Ur Amphetamine Screen NEGATIVE U Methamphetamines Scrn NEGATIVE U Benzodiazepines Scrn NEGATIVE Urine Cocaine Screen NEGATIVE U Cannabinoids Screen NEGATIVE Ethyl Alcohol 12/05/21 12/05/21 12/06/21 18:34 21:10 08:38 WBC RBC Hgb Hct MCV MCH MCHC RDW Plt Count MPV Neut # (Auto) Lymph # (Auto) [place] # (Auto) Eos # (Auto) Baso # (Auto) Absolute Nucleated RBC Nucleated RBC % Sodium Potassium Chloride Carbon Dioxide Anion Gap BUN Creatinine Estimated GFR (MDRD) Glucose POC Whole Bld Glucose 125 H Calcium Total Bilirubin AST ALT Alkaline Phosphatase Total Creatine Kinase Total Protein Albumin Globulin Albumin/Globulin Ratio Lipase TSH Urine Color Urine Clarity Urine pH Ur Specific [place] Urine Protein Urine Glucose (UA) Urine Ketones Urine Occult Blood Urine Nitrite Urine Bilirubin Urine Urobilinogen Ur Leukocyte Esterase Urine RBC Urine WBC Ur Squamous Epith Cells Urine Crystals Urine Bacteria Ur Microscopic Review Urine Culture Comments Nasal Adenovirus (PCR) NOT DETECTED Nasal B. parapertussis DNA (PCR) NOT DETECTED Nasal Coronavir 229E PCR NOT DETECTED Nasal Coronavir HKU1 PCR NOT DETECTED Nasal Coronavir NL63 PCR NOT DETECTED Nasal Coronavir OC43 PCR NOT DETECTED Nasal Enterovir/Rhinovir PCR NOT DETECTED Nasal Influenza B PCR NOT DETECTED Nasal Influenza A PCR NOT DETECTED Nasal Parainfluen 1 PCR NOT DETECTED Nasal Parainfluen 2 PCR NOT DETECTED Nasal Parainfluen 3 PCR NOT DETECTED Nasal Parainfluen 4 PCR NOT DETECTED Nasal RSV (PCR) NOT DETECTED Nasal B.pertussis DNA PCR NOT DETECTED Nasal C.pneumoniae (PCR) NOT DETECTED Jerad Human Metapneumo PCR NOT DETECTED Nasal M.pneumoniae (PCR) NOT DETECTED Nasal SARS-CoV-2 (PCR) NOT DETECTED Last Dose Date Last Dose Time Urine Opiates Screen Ur Oxycodone Screen Urine Methadone Screen Ur Propoxyphene Screen Acetaminophen Ur Barbiturates Screen Valproic Acid Ur Tricyclics Screen Ur Phencyclidine Scrn Ur Amphetamine Screen U Methamphetamines Scrn U Benzodiazepines Scrn Urine Cocaine Screen U Cannabinoids Screen Ethyl Alcohol < 5.0 Departure - Departure Disposition: 65 [facility] Hosp/Unit DC/Xfer Clinical Impression: Hallucinations Condition: Stable
--- NOTE | 2021-12-06 15:03 | ED Physician Documentation ---
ED Addendum - Addendum Addendum: 12/06/21 15:02 Patient seen yesterday for worsening hallucinations began a few months ago. Ultimately had an unremarkable medical work-up and was seen by telepsych who did recommend inpatient psychiatric hospitalization. This patient has been accepted to [facility] for further psychiatric care. He will be transported via BLS. Appropriate [employer] paperwork has been completed.
[2021-12-06] MEDS ORDERED: QUEtiapine 100 MG TABLET PO SCH (21:00)
[2021-12-06] MEDS ORDERED: QUEtiapine 25 MG TABLET PO SCH (21:00)
[2021-12-07] MEDS ORDERED: QUEtiapine 100 MG TABLET PO SCH (09:00)
== END 2021-12-06 16:11 ==
LOC: ED 13:27
DX: R44.3 Hallucinations, unspecified (principal); E11.9 Type 2 diabetes mellitus without complications; Z79.4 Long term (current) use of insulin; Z20.822 Contact with and (suspected) exposure to COVID-19; F06.1 Catatonic disorder due to known physiological condition
CPT/HCPCS: 36415; 70450; 80053; 80164; 80306; 80307; 81001; 82550; 83690; 84443; 85025; 87086; 87631; 93005; 99284; 99285; A9270; G0480; Q3014; 0202U; 80320; 81003; 90836

== ENCOUNTER 2021-12-20 08:00 | Outpatient (CLI) | payer MEDICARE, MEDICAID ==
[2021-12-20 13:14] LABS: ESTIMATED AVERAGE GLUCOSE 137 mg/dL (70-100); HEMOGLOBIN A1c% 6.4 % (4.27-6.07)
== END 2021-12-20 23:59 | disposition home or self-care (01) ==
LOC: LAB.WCP 08:00
PROVIDERS: ATTEND Physician Assistant
DX: E11.9 Type 2 diabetes mellitus without complications (principal)
CPT/HCPCS: 36415; 83036

== ENCOUNTER 2022-02-19 07:12 | Outpatient (CLI) | payer MEDICARE, MEDICAID ==
--- NOTE | 2022-02-19 10:20 | MRI Report ---
PROCEDURE: Lumbar Spine W/O INDICATIONS: LUMBAR RADICULOPATHY TECHNIQUE: Noncontrast sagittal T1 spin echo and T2 fast echo, sagittal STIR, axial T1 and T2 fast spin echo thr ough the lumbar spine. In cases with scoliosis, additional coronal T2 fast spin echo may be performe d. COMPARISON: 08/07/2021 FINDINGS: Image quality: Diagnostic. Alignment and Curvature: There is normal bony alignment. Bone Marrow: Marrow is of normal overall signal. No acute vertebral body compression fractures. Spinal Cord: Conus medullaris terminates at the T1 level. Visualized cord demonstrates normal signa l and size. Paraspinous Soft Tissues: No paravertebral masses. T12-L1: Normal in appearance. L1-L2: No significant abnormality is seen. L2-L3: The disc height is well-preserved. There is loss of disc signal seen. Mild disc bulge is se en, which is eccentric to the left. There is a left posterior lateral annular fissure seen. There is moderate left-sided and no significant right-sided neuroforaminal narrowing. Mild central canal narr owing is seen. These imaging findings are stable compared to the prior examination. L3-L4: The disc height is well-preserved. There is loss of disc signal seen. Mild to moderate disc bulge is seen. Mild facet hypertrophy is seen. There is moderate right-sided and mild left-sided ne uroforaminal narrowing. No significant central canal narrowing is seen. These imaging findings are s imilar to the images of the prior examination. L4-L5: The disc height is well-preserved. There is loss of disc signal seen. Mild disc bulge is se en. Mild facet hypertrophy is seen. Moderate bilateral neuroforaminal narrowing can be seen, left worse than right. No significant central canal narrowing is seen. No significant change compared to the prior examination. L5-S1: Moderate loss of disc height and signal are seen. Mild to moderate disc bulge is seen, which is eccentric to the left. There is a central disc protrusion. Mild to moderate facet hypertrophy can be seen. There is at least moderate right-sided and moderate to severe left-sided neuroforaminal ellyn rowing. A mild degree of compression is again seen upon the exiting left L5 nerve root. Mild central canal narrowing is seen. These imaging findings are stable compared to the prior examination. IMPRESSION: Multiple levels of lumbar spine degenerative change are seen, which are most prominent a t L5-S1. No significant progression compared to the prior MRI. Reviewed by: Sagar Medina MD on 02/19/2022 9:19 AM FIGUEROA Approved by: Sagar Medina MD on 02/19/2022 9:19 AM FIGUEROA Station ID: [id number]
== END 2022-02-19 07:13 | disposition home or self-care (01) ==
LOC: DI 07:12
PROVIDERS: ATTEND Family Medicine
DX: M51.17 Intervertebral disc disorders with radiculopathy, lumbosacral region (principal); M51.36 Other intervertebral disc degeneration, lumbar region; M48.061 Spinal stenosis, lumbar region without neurogenic claudication; M48.07 Spinal stenosis, lumbosacral region; M47.26 Other spondylosis with radiculopathy, lumbar region; M47.27 Other spondylosis with radiculopathy, lumbosacral region

== ENCOUNTER 2022-03-19 07:16 | Outpatient (CLI) | payer MEDICARE, MEDICAID ==
--- NOTE | 2022-03-19 09:49 | MRI Report ---
PROCEDURE: Brain W/O INDICATIONS: CONCUSSION W/O LOC, PERSECUTORY DELUSION DISORDER TECHNIQUE: Noncontrast axial T1 spin echo, axial T2 fast spin echo, sagittal and axial FLAIR, coronal T2 fast sp in echo, axial gradient echo, axial diffusion and ADC through the brain. COMPARISON: Head CT dated 12/05/2011 FINDINGS: Image quality: Excellent. CSF Spaces: Basal cisterns are patent. No extra-axial fluid collections. Ventricles are normal in size and shape. Brain: No intracranial masses or hemorrhage. Mild diffuse cerebral volume loss is present. Minimal patchy high FLAIR signal within the periventricular white matter. Galan/white matter interface is norm al. Brainstem appears normal. Diffusion-weighted images demonstrate no acute ischemic insult. No c hronic ischemic insults. Normal intravascular flow voids are present. Skull and face: Calvarium has normal marrow signal. Orbits appear normal. Sinuses: There is mild mucosal thickening within the ethmoid and maxillary sinuses. Sinuses and mast oids are otherwise clear. IMPRESSION: 1. No acute process. No recent infarct. 2. Mild volume loss. Minimal small vessel ischemic disease. 3. Mild sinus disease. Reviewed by: Deedee Fernando MD on 03/19/2022 9:48 AM PDT Approved by: Deedee Fernando MD on 03/19/2022 9:48 AM PDT Station ID: [id number]
== END 2022-03-19 07:17 | disposition home or self-care (01) ==
LOC: DI 07:16
PROVIDERS: ATTEND Family Medicine
DX: F22 Delusional disorders (principal); S06.0X0S Concussion without loss of consciousness, sequela; G31.89 Other specified degenerative diseases of nervous system; J32.2 Chronic ethmoidal sinusitis; J32.0 Chronic maxillary sinusitis

== ENCOUNTER 2022-12-20 12:33 | Inpatient (IN) | payer MEDICARE, MEDICAID ==
[2022-12-20 13:12] LABS: BASOPHILS % (AUTO) 0.2 %; EOSINOPHILS # (AUTO) 0.1 10^3/uL (0.0-0.7); EOSINOPHILS % (AUTO) 0.5 %; HCT - HEMATOCRIT 41.9 % (42.0-52.0); HGB - HEMOGLOBIN 13.9 g/dL (14.0-18.0); LYMPHOCYTES # (AUTO) 1.5 10^3/uL (1.5-3.5); LYMPHOCYTES % (AUTO) 11.5 %; MEAN CORPUSCULAR HEMOGLOBIN 29.3 pg (27.0-31.0); MEAN CORPUSCULAR HGB CONC 33.2 g/dL (32.0-36.0); MEAN CORPUSCULAR VOLUME 88.2 fL (80.0-94.0); MEAN PLATELET VOLUME 8.9 fL (7.4-11.4); MONOCYTES # (AUTO) 0.8 10^3/uL (0.0-1.0); MONOCYTES % (AUTO) 6.2 %; NEUTROPHILS # (AUTO) 10.4 10^3/uL (1.5-6.6); NEUTROPHILS % (AUTO) 81.2 %; PLT - PLATELET COUNT 322 10^3/uL (130-450); RED BLOOD COUNT 4.75 10^6/uL (4.70-6.10); RED CELL DISTRIBUTION WIDTH 12.8 % (12.0-15.0); WHITE BLOOD COUNT 12.8 x10^3/uL (4.8-10.8)
[2022-12-20 13:26] LABS: ACETAMINOPHEN < 10 ug/mL (10-30); ALBUMIN 4.5 g/dL (3.2-5.5); ALBUMIN/GLOBULIN RATIO 1.2 (1.0-2.2); ALKALINE PHOSPHATASE 88 IU/L (42-121); ALT ALANINE AMINOTRANSFERASE 46 IU/L (10-60); AST ASPARTATE AMINOTRANSFERASE 173 IU/L (10-42); BILIRUBIN,TOTAL 0.8 mg/dL (0.2-1.0); BUN - BLOOD UREA NITROGEN 29 mg/dL (6-20); CALCIUM 9.9 mg/dL (8.5-10.3); CARBON DIOXIDE - CO2 26 mmol/L (21-32); CHLORIDE 99 mmol/L (101-111); CREATININE 1.7 mg/dL (0.6-1.2); ETOH - ETHANOL < 5.0 mg/dL; GFR - MDRD 42 (>89); GLUCOSE 181 mg/dL (70-100); LIPASE 31 U/L (22-51); POTASSIUM 3.9 mmol/L (3.5-5.0); SALICYLATE < 6.0 mg/dL; SODIUM 139 mmol/L (135-145); TOTAL PROTEIN 8.3 g/dL (6.7-8.2)
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
[2022-12-20 14:59] LABS: VALPROIC ACID (DEPAKOTE) < 10.0 ug/mL
[2022-12-20 14:59] LABS: MUDS CUTOFF CONCENTRATIONS CUTOFF CONC BELOW:
[2022-12-20 15:00] LABS: BILIRUBIN,URINE NEGATIVE (NEGATIVE); GLUCOSE, URINE (UA) NEGATIVE (NEGATIVE); KETONES,URINE (UA) NEGATIVE (NEGATIVE); LEUKOCYTE ESTERASE, URINE TRACE (NEGATIVE); NITRITE,URINE NEGATIVE (NEGATIVE); OCCULT BLOOD,URINE LARGE (NEGATIVE); PH,URINE 5.5 PH (5.0-7.5); PROTEIN,URINE 30 mg/dL (NEGATIVE); UROBILINOGEN,URINE 0.2 (NORMAL) E.U./dL (NORMAL)
[2022-12-20 15:00] LABS: CK- CREATINE KINASE 11080 IU/L (22-269)
[2022-12-20] MEDS ORDERED: SODIUM CHLORIDE 0.9% 1,000 ML IV STA ×2 (15:00)
[2022-12-20 15:11] LABS: CLARITY,URINE CLOUDY (CLEAR)
[2022-12-20 15:12] LABS: AMORPHOUS SEDIMENT,UR Few /LPF; BACTERIA,URINE Few /HPF (None Seen); RBC,URINE TNTC /HPF (0-5); SQUAMOUS EPITHELIAL CELL,UR NONE SEEN (<= Few)
[2022-12-20 15:15] LABS: AMPHETAMINE SCREEN,URINE NEGATIVE (NEGATIVE); BARBITURATE SCREEN,UR NEGATIVE (NEGATIVE); BENZODIAZEPINES SCREEN, URINE NEGATIVE (NEGATIVE); COCAINE SCREEN URINE NEGATIVE (NEGATIVE); METHADONE SCREEN, URINE NEGATIVE (NEGATIVE); METHAMPHETAMINES SCREEN, URINE NEGATIVE (NEGATIVE); OPIATE SCREEN, URINE NEGATIVE (NEGATIVE); OXYCODONE SCREEN, URINE NEGATIVE (NEGATIVE); PROPOXYPHENE SCREEN, URINE NEGATIVE (NEGATIVE); THC CANNABINOID SCREEN, URINE POSITIVE (NEGATIVE); TRICYCLIC ANTIDEPRESSANT,URINE NEGATIVE (NEGATIVE)
--- NOTE | 2022-12-20 15:23 | CT Report ---
PROCEDURE: HEAD WO INDICATIONS: head injury TECHNIQUE: Noncontrast 4.5 mm thick angled axial sections acquired from the foramen magnum to the vertex. For r adiation dose reduction, the following was used: automated exposure control, adjustment of mA and/or kV according to patient size. COMPARISON: CT head dated 12/05/2021 FINDINGS: Image quality: Excellent. CSF spaces: Basal cisterns are patent. No extra-axial fluid collections. Ventricles are normal in size and shape. Brain: No midline shift. No intracranial masses or hemorrhage. Galan-white matter interface is norm al. Skull and face: Calvarium and visualized facial bones are intact, without suspicious lesions. Sinuses: Visualized sinuses and mastoids are clear. IMPRESSION: No evidence acute intracranial process. Reviewed by: Keith Wolfe MD on 12/20/2022 3:21 PM PST Approved by: Keith Wolfe MD on 12/20/2022 3:21 PM PST Station ID: [id number]
--- NOTE | 2022-12-20 15:28 | CT Report ---
PROCEDURE: CERVICAL SPINE WO INDICATIONS: head/back inj TECHNIQUE: Noncontrast 3 mm thick sections acquired from the skull base to the T4 level. Sagittal and coronal r eformats were then constructed. For radiation dose reduction, the following was used: automated exp osure control, adjustment of mA and/or kV according to patient size. COMPARISON: None. FINDINGS: Image quality: Excellent. Bones: No fractures or dislocations. Visualized superior ribs are intact. Cervical spondylitic johnson ge. Multiple left-sided uncovertebral joint osteophyte results in multilevel left foraminal narrowing , spanning from C4/C5 through C7/T1. Soft tissues tissues: Prevertebral soft tissues are normal in thickness. No paravertebral hematomas . No apical pneumothoraces. IMPRESSION: No evidence acute cervical fracture or dislocation. Cervical spondylitic change. Reviewed by: Keith Wolfe MD on 12/20/2022 3:27 PM PST Approved by: Keith Wolfe MD on 12/20/2022 3:27 PM PST Station ID: [id number]
--- NOTE | 2022-12-20 15:31 | CT Report ---
PROCEDURE: THORACIC SPINE WO INDICATIONS: head/back inj TECHNIQUE: Noncontrast 3 mm thick sections acquired through the region of interest in the thoracic spine. Sagit gerry and coronal reformats were then constructed. For radiation dose reduction, the following was used : automated exposure control, adjustment of mA and/or kV according to patient size. COMPARISON: None. FINDINGS: Image quality: Excellent. Bones: There is normal overall bony alignment. No acute vertebral body compression fractures. No s uspicious sclerotic or lytic bony lesions. Central spinal canal is of normal overall caliber. Soft tissues: No paravertebral masses or hematomas. Visualized posteromedial lungs appear clear. IMPRESSION: No evidence acute bony abnormality of the thoracic spine. Reviewed by: Keith Wolfe MD on 12/20/2022 3:30 PM PST Approved by: Keith Wolfe MD on 12/20/2022 3:30 PM [facility] Station ID: [id number]
--- NOTE | 2022-12-20 15:39 | CT Report ---
PROCEDURE: LUMBAR SPINE WO INDICATIONS: head/back inj TECHNIQUE: Noncontrast 3 mm thick sections acquired from the T12 level to the sacrum. Sagittal and coronal refo rmats were constructed. For radiation dose reduction, the following was used: automated exposure co ntrol, adjustment of mA and/or kV according to patient size. COMPARISON: None. FINDINGS: Image quality: Excellent. Bones: There is normal bony alignment. No acute vertebral body compression fractures. No suspiciou s lytic or blastic bony lesions. Central spinal caliber is of normal overall caliber. No pars defec ts. T12-L1: Normal in appearance. L1-L2: Normal in appearance. L2-L3: Normal in appearance. L3-L4: Normal in appearance. L4-L5: Normal in appearance. L5-S1: Posterior diffuse osteophyte. No canal stenosis. Moderate left foraminal stenosis. Soft tissues: No retroperitoneal masses or hematomas. Visualized aorta is normal in caliber. Exten sive bilateral renal stones. Findings include bilateral floating renal pelvic stones. IMPRESSION: 1. No evidence acute bony abnormality of the lumbar spine. 2. Extensive bilateral renal stones and bilateral flowing renal pelvic stones. Reviewed by: Keith Wolfe MD on 12/20/2022 3:38 PM PST Approved by: Keith Wolfe MD on 12/20/2022 3:38 PM PST Station ID: [id number]
[2022-12-20] MEDS ORDERED: ONDANSETRON 4 MG/2 ML VIAL IVP PRN (16:20)
[2022-12-20] MEDS ORDERED: SODIUM CHLORIDE FLUSH 0.9% 10 ML SYRINGE IVP PRN (16:20)
--- NOTE | 2022-12-20 16:53 | HISTORY & PHYSICAL EXAMINATION ---
Chief Complaint - Chief Complaint Chief Complaint: Fell at home, has pain, recently wandering History of Present Illness - Admitted From Admitted From:: ED - History Obtained From History obtained from: ED provider, the patient, and chart review - History of Present Illness HPI Comment/Other: This is a 57-year-old male with a history of DM on Metformin, paranoid schizophrenia and Hx of kidney stones with prior lithotripsies. He lives with his caregiver in a trailer. Recently he has been wandering when the caregiver is not home (because she has an evening job). Yesterday he went outside at night and "wanted to build a campfire". He fell by tripping on something and could not get up therefore laid on his R side on the ground in that position for many hours. He was found by his caregiver when she returned home. He was brought to the emergency room with complaints of pain of his back which was felt to be from the fall. In the ED the patient underwent trauma work-up that showed no areas with hemorrhage or fractures. Lab work however showed rhabdomyolysis present with a CK of 11,000 and ANGELO present with creatinine of 1.7 (his usual creatinine is 1.1). He was started on IV saline in the ED. The emergency room provider spoke to me on the Hospitalist team for managing the patient by admitting him for further treatment of his rhabdomyolysis and ANGELO. The patient describes to me that he has not worked since January or 2013 because of a disability. He does not drive a car. History - Past Medical History Cardiovascular: reports: None Respiratory: reports: None Neuro: reports: None Endocrine/Autoimmune: reports: Type 2 diabetes GI: reports: None : reports: Kidney stones HEENT: reports: None Psych: reports: Schizophrenia Musculoskeletal: reports: None Derm: reports: None MRSA Hx?: No - Past Surgical History General: reports: Appendectomy /[employer]: reports: Other (Several lithotripsies) - Family & Social History Family History: Mother: , Father: Family History Comment/Other: Father of cancer. Mother of "a broken heart". He has a brother and sister who are both healthy he thinks. Living arrangement: At home Living Situation: With caregiver(s) Social History Notes: According to EMR, there is no smoking history and no alcohol use history - Substance History Use: Uses substance without health or social issues: NONE - POLST Patient has POLST: No Meds/Allgy - Home Medications Home Medications: Ambulatory Orders Medication Instructions Recorded Confirmed Blood Sugar Diagnostic [Glucometer 1 each QID #120 strip 04/24/20 12/20/22 Strips] Blood-Glucose Meter [Glucometer] 1 each ONCE #1 each 04/24/20 12/20/22 Lancets 1 each QID #120 each 04/24/20 12/20/22 metFORMIN [Glucophage] 1,000 mg PO BIDWM 08/29/20 12/20/22 Aspirin [Aspirin EC] 81 mg PO DAILY 12/20/22 12/20/22 Atorvastatin Calcium [Lipitor] 80 mg PO HS 12/20/22 12/20/22 DULoxetine [Cymbalta] 30 mg PO BID 12/20/22 12/20/22 Fluticasone [Flonase] 1 sprays CRISTIAN DAILY 12/20/22 12/20/22 Gabapentin [Neurontin] 600 mg PO TID 12/20/22 12/20/22 risperiDONE [Risperdal] 3 mg PO BID 12/20/22 12/20/22 - Allergies Allergies/Adverse Reactions: Allergies Allergy/AdvReac Type Severity Reaction Status Date / Time diazepam [From Valium] Allergy Unknown Verified 12/20/22 12:36 Review of Systems - All Other Systems All Other Systems: reports: Other (Unable to obtain, patient poor historian) Exam - Vital Signs Vital Signs: Vital Signs x48h Temp Pulse Resp BP Pulse Ox 12/20/22 12:37 36.5 C 100 16 115/77 98 - Physical Exam General Appearance: positive: No acute distress, Alert, Other (Flat affect, pressured speech) Eyes Bilateral: positive: Normal inspection, No lid inflammation ENT: positive: ENT inspection nml, Dry mucous membranes Neck: positive: Nml inspection, No JVD Respiratory: positive: No respiratory distress, Breath sounds nml Cardiovascular: positive: Regular rate & rhythm, No murmur Abdomen: positive: Non-tender, Nml bowel sounds, No distention Skin: positive: Warm, Dry Extremities: positive: No pedal edema Neurologic/Psychiatric: positive: Oriented x3, Motor nml Conclusion/Plan - Problem List (1) Rhabdomyolysis Conclusion/Plan: Related to the ground-level fall then laying on the ground for several hours Plan: B continue with IV NS hydration Follow CK daily Qualifiers: Qualified Code(s): M62.82 - Rhabdomyolysis (2) ANGEOL (acute kidney injury) Conclusion/Plan: He is visibly dehydrated clinically. This Angelo is likely from underlying volume depletion in addition to the rhabdo Plan: Avoid nephrotoxins Continue IV fluids Follow BMP daily (3) Ground-level fall Conclusion/Plan: Patient fell outdoors but near his home. Plan: Give pain meds as needed Will check orthostatic vital signs (4) DM type 2 (diabetes mellitus, type 2) Conclusion/Plan: He is on metformin at home Plan: Will order diabetic diet We will not give metformin while he has ANGELO Will order fingerstick checks, sliding scale regular insulin coverage and hypoglycemia protocol Will check his A1c (5) Paranoid schizophrenia Conclusion/Plan: Plan: We will continue with his usual psych medications, as the list is carefully reconciled by pharmacy Patient needs psych evaluation, the ED provider was planning a telepsych eval but now the patient needs medical stabilization first and possibly he will need to go to inpatient psych. Will have social work start to get involved for possible transfer once he is medically stabilized - Lab Results Fish Bones: 12/21/22 05:28 12/21/22 05:28 - Other Other Results/Comments: Attestation: The patient is expected to be discharged or transferred to another facility within 96 hours: Yes.
[2022-12-20] MEDS: SODIUM CHLORIDE 0.9% 1,000 ML IV SCH (17:00)
[2022-12-20] MEDS ORDERED: SERTRALINE 50 MG TABLET PO SCH (18:00)
[2022-12-20] MEDS ORDERED: DIVALPROEX ER 250 MG TABLET PO SCH (18:00)
--- NOTE | 2022-12-20 18:10 | PHARMACY PROGRESS NOTE ---
- Best Possible Medication History Admit Date and Time: 12/20/22 1620 Processed by: Pharmacy Medication History completed: Yes Patient Interview: Pt unable to participate Secondary Source(s): Caregiver, Insurance records (PT UNABLE TO PARTICIPATE. MEDS WERE RECONCILED USING INSURANCE RECORDS, MEDLIST FROM CAREGIVER GIVEN TO MY BY NURSE SUSANA AND SPEAKING WITH THE CAREGIVER TO CONFIRM A COUPLE MEDS THAT I SAW FILLED BUT NOT ON THE LIST, NAMELY, SERTRALINE, INSULIN, AND NAPROXEN. CAREGIVER CONFIRMS MD STOPPED THOSE 3) As the person ultimately responsible for medication therapy, providers are able to order a medication from an existing home medication list in [facility] via the "Reconcile Routine" prior to Confirmation of that medication by sales support representative. Such practice is discouraged except when the physician, in their clinical judgment, deems that a medical need exists for a medication without regard to previous use.
[2022-12-20] MEDS: SODIUM CHLORIDE FLUSH 0.9% 10 ML SYRINGE IVP SCH (19:03)
[2022-12-20] MEDS: INSULIN LISPRO 300 UNIT/3 ML PEN SUBQ SCH ×2 (19:03→20:57)
[2022-12-20] MEDS: risperiDONE 1 MG TABLET PO SCH (20:56)
[2022-12-20] MEDS: ACETAMINOPHEN 325 MG TABLET PO PRN (20:57)
[2022-12-20] MEDS: DULoxetine 30 MG CAPSULE PO SCH (20:57)
[2022-12-20] MEDS: ATORVASTATIN 40 MG TABLET PO SCH (20:57)
[2022-12-20] MEDS ORDERED: QUEtiapine 100 MG TABLET PO SCH (21:00)
[2022-12-21] MEDS: SODIUM CHLORIDE 0.9% 1,000 ML IV SCH ×3 (00:47→20:09)
[2022-12-21] MEDS: SODIUM CHLORIDE FLUSH 0.9% 10 ML SYRINGE IVP SCH ×3 (00:48→19:26)
[2022-12-21] MEDS: GABAPENTIN 300 MG CAPSULE PO SCH ×5 (00:48→21:33)
[2022-12-21] MEDS: ACETAMINOPHEN 325 MG TABLET PO PRN ×3 (02:37→19:26)
[2022-12-21 06:07] LABS: BASOPHILS % (AUTO) 0.4 %; EOSINOPHILS # (AUTO) 0.2 10^3/uL (0.0-0.7); EOSINOPHILS % (AUTO) 2.6 %; HCT - HEMATOCRIT 34.8 % (42.0-52.0); HGB - HEMOGLOBIN 11.5 g/dL (14.0-18.0); LYMPHOCYTES # (AUTO) 2.4 10^3/uL (1.5-3.5); LYMPHOCYTES % (AUTO) 30.7 %; MEAN CORPUSCULAR HEMOGLOBIN 29.7 pg (27.0-31.0); MEAN CORPUSCULAR VOLUME 89.9 fL (80.0-94.0); MEAN PLATELET VOLUME 9.2 fL (7.4-11.4); MONOCYTES # (AUTO) 0.6 10^3/uL (0.0-1.0); NEUTROPHILS # (AUTO) 4.5 10^3/uL (1.5-6.6); PLT - PLATELET COUNT 277 10^3/uL (130-450); RED BLOOD COUNT 3.87 10^6/uL (4.70-6.10); RED CELL DISTRIBUTION WIDTH 12.7 % (12.0-15.0); WHITE BLOOD COUNT 7.7 x10^3/uL (4.8-10.8)
[2022-12-21 06:42] LABS: CALCIUM 8.7 mg/dL (8.5-10.3); CREATININE 1.3 mg/dL (0.6-1.2); MAGNESIUM 1.7 mg/dL (1.7-2.8); PHOSPHORUS 3.6 mg/dL (2.5-4.6)
[2022-12-21] MEDS: INSULIN LISPRO 300 UNIT/3 ML PEN SUBQ SCH ×4 (07:42→21:38)
[2022-12-21] MEDS: DULoxetine 30 MG CAPSULE PO SCH ×2 (09:48→21:34)
[2022-12-21] MEDS: risperiDONE 1 MG TABLET PO SCH ×2 (09:48→21:36)
[2022-12-21] MEDS: FLUTICASONE NASAL SPRAY NAS SCH (09:49)
[2022-12-21] MEDS: ASPIRIN EC 81 MG TABLET PO SCH (09:49)
[2022-12-21 10:18] LABS: ESTIMATED AVERAGE GLUCOSE 143 mg/dL (70-100); HEMOGLOBIN A1c% 6.6 % (4.27-6.07)
--- NOTE | 2022-12-21 18:53 | PROVIDER PROGRESS NOTE ---
Assessment/Plan - Problem List (1) Rhabdomyolysis Qualifiers: Qualified Code(s): M62.82 - Rhabdomyolysis Assessment/Plan: Related to the ground-level fall then laying on the ground for several hours Plan: Continue with IV NS hydration Follow CK daily Qualifiers: Qualified Code(s): M62.82 - Rhabdomyolysis (2) Buprenorphine dependence Assessment/Plan: His old records report that he used to take buprenorphine and today his nurse saw a buprenorphine patch on his back, 15 MCG per hour dose. Pharmacy was notified. Plan: Pharmacist found that the buprenorphine patches is ordered to be used prn, and it is a weekly patch, and it is due to come off. Will use this for pain and continue it only weekly (3) DM type 2 (diabetes mellitus, type 2) Conclusion/Plan: He is on metformin at home. His A1c came back at Plan: Will order diabetic diet We will not give metformin while he has ANGELO Cont fingerstick checks, sliding scale regular insulin coverage and hypoglycemia protocol (4) Paranoid schizophrenia Conclusion/Plan: Social Work started to work on a possible transfer once he is medically stabilized, however, if he is not suicidal or psychotic, and is only "wandering alot", he may not need Inpt care and he already has a Mental Health provider. Plan: We will continue with his usual psych medications, as the list is carefully reconciled by pharmacy Patient needs psych evaluation, the ED provider was planning a telepsych eval, but now the patient needs medical stabilization first for his rhabdo and ANGELO. (5) ANGELO (acute kidney injury) Conclusion/Plan: Improved He is visibly less dehydrated clinically. This Angelo is likely from underlying volume depletion in addition to the rhabdo Plan: Avoid nephrotoxins Continue IV fluids Follow BMP daily (6) Ground-level fall Conclusion/Plan: Patient fell outdoors but near his home. Here he is mildly orthostatic with heart rate raising more than 20 points from supine to stand Plan: Give pain meds as needed Cont iv NS Cont to check orthostatic vital signs - Current Meds Current Meds: Current Medications Generic Name Dose Route Start Last Admin Trade Name Freq PRN Reason Stop Dose Admin Acetaminophen 650 mg 12/20/22 16:20 12/21/22 14:13 Acetaminophen 325 Mg Tablet PO 650 mg Q4HR PRN Administration Pain 1 to 4, or Fever Aspirin 81 mg 12/21/22 09:00 12/21/22 09:49 Aspirin Ec 81 Mg Tablet PO 81 mg DAILY ANGELA Administration Atorvastatin Calcium 80 mg 12/20/22 21:00 12/20/22 20:57 Atorvastatin 40 Mg Tablet PO 80 mg HS ANGELA Administration Duloxetine HCl 30 mg 12/20/22 21:00 12/21/22 09:48 Duloxetine 30 Mg Capsule PO 30 mg BID ANGELA Administration Fluticasone Propionate 1 sprays 12/21/22 09:00 12/21/22 09:49 Fluticasone Nasal [place] CRISTIAN 1 spr DAILY ANGELA Administration Gabapentin 600 mg 12/20/22 22:00 12/21/22 14:13 Gabapentin 300 Mg Capsule PO 600 mg TID ANGELA Administration Sodium Chloride 1,000 mls @ 100 mls/hr 12/20/22 17:00 12/21/22 15:23 Normal Saline 0.9% IV 100 mls/hr .Q10H ANGELA Infusion Insulin Human Lispro 1 - 5 unit 12/20/22 17:00 12/21/22 17:18 Insulin Lispro 300 Unit/3 Ml Pen SUBQ Not Given 0800,1200,1700,2100 [facility] Protocol Risperidone 3 mg 12/20/22 21:00 12/21/22 09:48 Risperidone 1 Mg Tablet PO 3 mg BID ANGELA Administration Sodium Chloride 10 ml 12/20/22 17:00 12/21/22 07:43 Sodium Chloride Flush 0.9% 10 Ml Syringe IVP Not Given 0100,0900,1700 ANGELA - Lab Result Fish Bone Diagrams: 12/21/22 05:28 12/21/22 05:28 - Additional Planning My Orders: My Active Orders 12/20/22 21:00 Atorvastatin [Lipitor] 80 mg PO HS DULoxetine [Cymbalta] 30 mg PO BID risperiDONE [RisperDAL] 3 mg PO BID 12/20/22 22:00 Gabapentin [Neurontin] 600 mg PO TID 12/21/22 09:00 Aspirin EC [Ecotrin] 81 mg PO DAILY Fluticasone [Flonase] 1 sprays CRISTIAN DAILY 12/22/22 05:00 BMP - BASIC METABOLIC PANEL [CHEM] DAILYLAB CBC - COMP BLD CT W/AUTO DIFF [HEME] DAILYLAB CK- CREATINE KINASE [CHEM] DAILYLAB 12/23/22 05:00 BMP - BASIC METABOLIC PANEL [CHEM] DAILYLAB CBC - COMP BLD CT W/AUTO DIFF [HEME] DAILYLAB CK- CREATINE KINASE [CHEM] DAILYLAB 12/24/22 05:00 BMP - BASIC METABOLIC PANEL [CHEM] DAILYLAB CBC - COMP BLD CT W/AUTO DIFF [HEME] DAILYLAB CK- CREATINE KINASE [CHEM] DAILYLAB Subjective - Subjective Patient Reports: No Complaints (He is minimally engaged today, only says 1 and 2 word sentences and even had some echolalia) Objective Vital Signs: Vital Signs - 24 hr 12/21/22 12/21/22 12/21/22 00:00 08:00 09:25 Temperature 36.9 C 36.7 C Heart Rate [ 89 66 93 Brachial] Respiratory 18 18 Rate Blood Pressure 102/51 L [Left Brachial artery] Blood Pressure 101/45 L 128/85 H [Right Brachial artery] O2 Saturation 96 97 12/21/22 16:00 Temperature 36.5 C Heart Rate [ 76 Brachial] Respiratory 18 Rate Blood Pressure [Left Brachial artery] Blood Pressure 94/65 [Right Brachial artery] O2 Saturation 99 Oxygen O2 Source Room air I&O (Last 24 Hrs): Intake and Output Totals x24h 12/19/22 12/20/22 12/21/22 23:59 23:59 23:59 Intake Total 1801 2938.333 Output Total 275 1150 Balance 1526 1788.333 General: Alert HEENT: Mucous membr. moist/pink Neck: Supple, No JVD Neuro: Alert, Other (Flat affect, seems withdrawn, non-focal) Cardiovascular: Regular rate Respiratory: No respiratory distress Abdomen: Soft Extremities: No clubbing, No edema - Results Results: Laboratory Results WBC 7.7 x10^3/uL (4.8-10.8) 12/21/22 05:28 RBC 3.87 10^6/uL (4.70-6.10) L 12/21/22 05:28 Hgb 11.5 g/dL (14.0-18.0) L 12/21/22 05:28 Hct 34.8 % (42.0-52.0) L 12/21/22 05:28 MCV 89.9 fL (80.0-94.0) 12/21/22 05:28 MCH 29.7 pg (27.0-31.0) 12/21/22 05:28 MCHC 33.0 g/dL (32.0-36.0) 12/21/22 05:28 RDW 12.7 % (12.0-15.0) 12/21/22 05:28 Plt Count 277 10^3/uL (130-450) 12/21/22 05:28 MPV 9.2 fL (7.4-11.4) 12/21/22 05:28 Neut # (Auto) 4.5 10^3/uL (1.5-6.6) 12/21/22 05:28 Lymph # (Auto) 2.4 10^3/uL (1.5-3.5) 12/21/22 05:28 [place] # (Auto) 0.6 10^3/uL (0.0-1.0) 12/21/22 05:28 Eos # (Auto) 0.2 10^3/uL (0.0-0.7) 12/21/22 05:28 Baso # (Auto) 0.0 10^3/uL (0.0-0.1) 12/21/22 05:28 Absolute Nucleated RBC 0.00 x10^3/uL 12/21/22 05:28 Nucleated RBC % 0.0 /100WBC 12/21/22 05:28 Sodium 137 mmol/L (135-145) 12/21/22 05:28 Potassium 4.0 mmol/L (3.5-5.0) 12/21/22 05:28 Chloride 104 mmol/L (101-111) 12/21/22 05:28 Carbon Dioxide 25 mmol/L (21-32) 12/21/22 05:28 Anion Gap 8.0 (6-13) 12/21/22 05:28 BUN 27 mg/dL (6-20) H 12/21/22 05:28 Creatinine 1.3 mg/dL (0.6-1.2) H 12/21/22 05:28 Estimated GFR (MDRD) 57 (>89) L 12/21/22 05:28 Glucose 132 mg/dL (70-100) H 12/21/22 05:28 POC Whole Bld Glucose 110 mg/dL (70 - 100) H 12/21/22 16:49 Estimat Average Glucose 143 mg/dL (70-100) H 12/21/22 05:28 Hemoglobin A1c % 6.6 % (4.27-6.07) H 12/21/22 05:28 Calcium 8.7 mg/dL (8.5-10.3) 12/21/22 05:28 Phosphorus 3.6 mg/dL (2.5-4.6) 12/21/22 05:28 Magnesium 1.7 mg/dL (1.7-2.8) 12/21/22 05:28 Total Bilirubin 0.8 mg/dL (0.2-1.0) 12/20/22 13:07 AST 173 IU/L (10-42) H 12/20/22 13:07 ALT 46 IU/L (10-60) 12/20/22 13:07 Alkaline Phosphatase 88 IU/L (42-121) 12/20/22 13:07 Total Creatine Kinase 7780 IU/L (22-269) H* 12/21/22 05:28 Total Protein 8.3 g/dL (6.7-8.2) H 12/20/22 13:07 Albumin 4.5 g/dL (3.2-5.5) 12/20/22 13:07 Globulin 3.8 g/dL (2.1-4.2) 12/20/22 13:07 Albumin/Globulin Ratio 1.2 (1.0-2.2) 12/20/22 13:07 Lipase 31 U/L (22-51) 12/20/22 13:07 TSH 0.93 uIU/mL (0.34-5.60) 12/20/22 13:07 Urine Color BROWN 12/20/22 14:54 Urine Clarity CLOUDY (CLEAR) 12/20/22 14:54 Urine pH 5.5 PH (5.0-7.5) 12/20/22 14:54 Ur Specific [place] >=1.030 (1.002-1.030) H 12/20/22 14:54 Urine Protein 30 mg/dL (NEGATIVE) H 12/20/22 14:54 Urine Glucose (UA) NEGATIVE mg/dL (NEGATIVE) 12/20/22 14:54 Urine Ketones NEGATIVE mg/dL (NEGATIVE) 12/20/22 14:54 Urine Occult Blood LARGE (NEGATIVE) H 12/20/22 14:54 Urine Nitrite NEGATIVE (NEGATIVE) 12/20/22 14:54 Urine Bilirubin NEGATIVE (NEGATIVE) 12/20/22 14:54 Urine Urobilinogen 0.2 (NORMAL) E.U./dL (NORMAL) 12/20/22 14:54 Ur Leukocyte Esterase TRACE (NEGATIVE) H 12/20/22 14:54 Urine RBC TNTC /HPF (0-5) H 12/20/22 14:54 Urine WBC 6-10 /HPF (0-3) H 12/20/22 14:54 Ur Squamous Epith Cells NONE SEEN (<= Few) 12/20/22 14:54 Amorphous Sediment Few /LPF 12/20/22 14:54 Urine Bacteria Few /HPF (None Seen) 12/20/22 14:54 Ur Microscopic Review INDICATED 12/20/22 14:54 Urine Culture Comments INDICATED 12/20/22 14:54 Salicylates < 6.0 mg/dL 12/20/22 13:07 Urine Opiates Screen NEGATIVE (NEGATIVE) 12/20/22 14:54 Ur Oxycodone Screen NEGATIVE (NEGATIVE) 12/20/22 14:54 Urine Methadone Screen NEGATIVE (NEGATIVE) 12/20/22 14:54 Ur Propoxyphene Screen NEGATIVE (NEGATIVE) 12/20/22 14:54 Acetaminophen < 10 ug/mL (10-30) L 12/20/22 13:07 Ur Barbiturates Screen NEGATIVE (NEGATIVE) 12/20/22 14:54 Valproic Acid < 10.0 ug/mL 12/20/22 13:07 Ur Tricyclics Screen NEGATIVE (NEGATIVE) 12/20/22 14:54 Ur Phencyclidine Scrn NEGATIVE (NEGATIVE) 12/20/22 14:54 Ur Amphetamine Screen NEGATIVE (NEGATIVE) 12/20/22 14:54 U Methamphetamines Scrn NEGATIVE (NEGATIVE) 12/20/22 14:54 U Benzodiazepines Scrn NEGATIVE (NEGATIVE) 12/20/22 14:54 Urine Cocaine Screen NEGATIVE (NEGATIVE) 12/20/22 14:54 U Cannabinoids Screen POSITIVE (NEGATIVE) H 12/20/22 14:54 Ethyl Alcohol < 5.0 mg/dL 12/20/22 13:07 SARS-CoV-2 (PCR) NOT DETECTED 12/20/22 14:21
[2022-12-21] MEDS: BACITRACIN ZINC OINT 1 PACKET TOP PRN (20:10)
[2022-12-21] MEDS: ATORVASTATIN 40 MG TABLET PO SCH (21:34)
[2022-12-22] MEDS: SODIUM CHLORIDE FLUSH 0.9% 10 ML SYRINGE IVP SCH ×4 (04:50→23:28)
[2022-12-22] MEDS: SODIUM CHLORIDE 0.9% 1,000 ML IV SCH ×2 (05:03→15:04)
[2022-12-22 06:02] LABS: BASOPHILS % (AUTO) 0.5 %; EOSINOPHILS # (AUTO) 0.3 10^3/uL (0.0-0.7); HCT - HEMATOCRIT 34.1 % (42.0-52.0); HGB - HEMOGLOBIN 11.3 g/dL (14.0-18.0); LYMPHOCYTES # (AUTO) 2.4 10^3/uL (1.5-3.5); LYMPHOCYTES % (AUTO) 29.2 %; MEAN CORPUSCULAR HEMOGLOBIN 29.9 pg (27.0-31.0); MEAN CORPUSCULAR HGB CONC 33.1 g/dL (32.0-36.0); MEAN CORPUSCULAR VOLUME 90.2 fL (80.0-94.0); MEAN PLATELET VOLUME 9.4 fL (7.4-11.4); MONOCYTES # (AUTO) 0.6 10^3/uL (0.0-1.0); MONOCYTES % (AUTO) 7.7 %; NEUTROPHILS % (AUTO) 59.4 %; PLT - PLATELET COUNT 259 10^3/uL (130-450); RED BLOOD COUNT 3.78 10^6/uL (4.70-6.10); RED CELL DISTRIBUTION WIDTH 12.7 % (12.0-15.0); WHITE BLOOD COUNT 8.4 x10^3/uL (4.8-10.8)
[2022-12-22 06:36] LABS: CALCIUM 8.7 mg/dL (8.5-10.3); CREATININE 1.1 mg/dL (0.6-1.2); POTASSIUM 4.1 mmol/L (3.5-5.0)
[2022-12-22] MEDS: GABAPENTIN 300 MG CAPSULE PO SCH ×3 (06:41→21:27)
[2022-12-22] MEDS: INSULIN LISPRO 300 UNIT/3 ML PEN SUBQ SCH ×4 (08:03→20:55)
[2022-12-22] MEDS: ASPIRIN EC 81 MG TABLET PO SCH (08:11)
[2022-12-22] MEDS: risperiDONE 1 MG TABLET PO SCH ×2 (08:11→20:54)
[2022-12-22] MEDS: DULoxetine 30 MG CAPSULE PO SCH ×2 (08:12→20:53)
[2022-12-22] MEDS: ACETAMINOPHEN 325 MG TABLET PO PRN ×3 (08:12→16:06)
[2022-12-22] MEDS: FLUTICASONE NASAL SPRAY NAS SCH (08:12)
--- NOTE | 2022-12-22 16:59 | PROVIDER PROGRESS NOTE ---
Assessment/Plan - Problem List (1) Rhabdomyolysis Qualifiers: Qualified Code(s): M62.82 - Rhabdomyolysis Assessment/Plan: Related to the ground-level fall then laying on the ground for several hours I reviewed his labs and CK is improving 11,000>> 7,000>> 4,000 today. Plan: Continue with IV NS hydration Follow CK daily Qualifiers: Qualified Code(s): M62.82 - Rhabdomyolysis (2) Buprenorphine dependence Assessment/Plan: His old records report that he used to take buprenorphine and his nurse saw a buprenorphine patch on his back, 15 MCG per hour dose. Pharmacy was notified. Plan: Pharmacist found that the buprenorphine patches is ordered to be used prn, and it is a weekly patch, and it is due to come off. Will use this for pain and continue it only weekly (3) DM type 2 (diabetes mellitus, type 2) Conclusion/Plan: He is on metformin at home. His A1c came back at Plan: Will order diabetic diet We will not give metformin while he has ANGELO Cont fingerstick checks, sliding scale regular insulin coverage and hypoglycemia protocol (4) Paranoid schizophrenia Conclusion/Plan: Social Work started to work on a possible transfer once he is medically stabilized, however, if he is not suicidal or psychotic, and is only "wandering alot", he may not need Inpt care and he already has a Mental Health provider. Today he is hypersomnolent, and his RN said he did not sleep all night. Perhaps this patient has reversed his internal clock and is awake all night, but sleeps during the day. This may be why he was "wandering" at night. Plan: We will continue with his usual psych medications, as the list was carefully reconciled by pharmacy Patient needs psych evaluation, the ED provider was planning a telepsych eval, but now the patient needs medical stabilization first for his rhabdo and ANGELO. (5) ANGELO (acute kidney injury) Conclusion/Plan: Resolved. I reviewed all labs He is visibly less dehydrated clinically. This Angelo was likely from underlying volume depletion in addition to the rhabdo Plan: Avoid nephrotoxins Continue IV fluids Follow BMP daily (6) Ground-level fall Conclusion/Plan: Patient fell outdoors but near his home. Here he is mildly orthostatic with heart rate raising more than 20 points from supine to stand Plan: Give pain meds as needed Cont iv NS Cont to check orthostatic vital signs - Current Meds Current Meds: Current Medications Generic Name Dose Route Start Last Admin Trade Name Freq PRN Reason Stop Dose Admin Acetaminophen 650 mg 12/20/22 16:20 12/22/22 16:06 Acetaminophen 325 Mg Tablet PO 650 mg Q4HR PRN Administration Pain 1 to 4, or Fever Aspirin 81 mg 12/21/22 09:00 12/22/22 08:11 Aspirin Ec 81 Mg Tablet PO 81 mg DAILY ANGELA Administration Atorvastatin Calcium 80 mg 12/20/22 21:00 12/21/22 21:34 Atorvastatin 40 Mg Tablet PO 80 mg HS ANGELA Administration Bacitracin 1 packet 12/21/22 19:35 12/21/22 20:10 Bacitracin Zinc Oint 1 Packet TOP 1 packet PRN PRN Administration Skin Care Duloxetine HCl 30 mg 12/20/22 21:00 12/22/22 08:12 Duloxetine 30 Mg Capsule PO 30 mg BID ANGELA Administration Fluticasone Propionate 1 sprays 12/21/22 09:00 12/22/22 08:12 Fluticasone Nasal [place] CRISTIAN 1 spr DAILY ANGELA Administration Gabapentin 600 mg 12/20/22 22:00 12/22/22 13:52 Gabapentin 300 Mg Capsule PO 600 mg TID ANGELA Administration Sodium Chloride 1,000 mls @ 100 mls/hr 12/20/22 17:00 12/22/22 15:04 Normal Saline 0.9% IV 100 mls/hr .Q10H ANGELA Administration Insulin Human Lispro 1 - 5 unit 12/20/22 17:00 12/22/22 11:37 Insulin Lispro 300 Unit/3 Ml Pen SUBQ 2 unit 0800,1200,1700,2100 ANGELA Administration Protocol Risperidone 3 mg 12/20/22 21:00 12/22/22 08:11 Risperidone 1 Mg Tablet PO 3 mg BID ANGELA Administration Sodium Chloride 10 ml 12/20/22 17:00 12/22/22 16:08 Sodium Chloride Flush 0.9% 10 Ml Syringe IVP 10 ml 0100,0900,1700 ANGELA Administration - Lab Result Fish Bone Diagrams: 12/22/22 05:00 12/22/22 05:00 - Additional Planning My Orders: My Active Orders 12/21/22 19:35 Bacitracin Zinc Oint [Bacitracin] 1 packet TOP PRN PRN 12/22/22 10:18 Miscellaenous Nursing Order [RC] QSHIFT 12/23/22 05:00 BMP - BASIC METABOLIC PANEL [CHEM] DAILYLAB CBC - COMP BLD CT W/AUTO DIFF [HEME] DAILYLAB CK- CREATINE KINASE [CHEM] DAILYLAB 12/24/22 05:00 BMP - BASIC METABOLIC PANEL [CHEM] DAILYLAB CBC - COMP BLD CT W/AUTO DIFF [HEME] DAILYLAB CK- CREATINE KINASE [CHEM] DAILYLAB Subjective - Subjective Patient Reports: Other (Somnolent) Nursing Reports: Other (RN said he slept poorly overnight) Objective Vital Signs: Vital Signs - 24 hr 12/22/22 12/22/22 12/22/22 00:04 08:00 15:41 Temperature 36.8 C 36.4 C L 36.6 C Heart Rate [ 69 67 67 Brachial] Respiratory 16 18 18 Rate Blood Pressure 90/59 L 114/58 L 123/63 [Left Brachial artery] O2 Saturation 94 95 98 Oxygen O2 Source Room air I&O (Last 24 Hrs): Intake and Output Totals x24h 12/20/22 12/21/22 12/22/22 23:59 23:59 23:59 Intake Total 1801 3893.333 3177 Output Total 275 1150 2000 Balance 1526 2743.333 1177 General: Other (ASleep) HEENT: Mucous membr. moist/pink Neck: No JVD Neuro: Other (Lethargic) Cardiovascular: Regular rate Respiratory: No respiratory distress Abdomen: Soft Extremities: No edema - Results Results: Laboratory Results WBC 8.4 x10^3/uL (4.8-10.8) 12/22/22 05:00 RBC 3.78 10^6/uL (4.70-6.10) L 12/22/22 05:00 Hgb 11.3 g/dL (14.0-18.0) L 12/22/22 05:00 Hct 34.1 % (42.0-52.0) L 12/22/22 05:00 MCV 90.2 fL (80.0-94.0) 12/22/22 05:00 MCH 29.9 pg (27.0-31.0) 12/22/22 05:00 MCHC 33.1 g/dL (32.0-36.0) 12/22/22 05:00 RDW 12.7 % (12.0-15.0) 12/22/22 05:00 Plt Count 259 10^3/uL (130-450) 12/22/22 05:00 MPV 9.4 fL (7.4-11.4) 12/22/22 05:00 Neut # (Auto) 5.0 10^3/uL (1.5-6.6) 12/22/22 05:00 Lymph # (Auto) 2.4 10^3/uL (1.5-3.5) 12/22/22 05:00 [place] # (Auto) 0.6 10^3/uL (0.0-1.0) 12/22/22 05:00 Eos # (Auto) 0.3 10^3/uL (0.0-0.7) 12/22/22 05:00 Baso # (Auto) 0.0 10^3/uL (0.0-0.1) 12/22/22 05:00 Absolute Nucleated RBC 0.00 x10^3/uL 12/22/22 05:00 Nucleated RBC % 0.0 /100WBC 12/22/22 05:00 Sodium 138 mmol/L (135-145) 12/22/22 05:00 Potassium 4.1 mmol/L (3.5-5.0) 12/22/22 05:00 Chloride 104 mmol/L (101-111) 12/22/22 05:00 Carbon Dioxide 25 mmol/L (21-32) 12/22/22 05:00 Anion Gap 9.0 (6-13) 12/22/22 05:00 BUN 19 mg/dL (6-20) 12/22/22 05:00 Creatinine 1.1 mg/dL (0.6-1.2) 12/22/22 05:00 Estimated GFR (MDRD) 69 (>89) L 12/22/22 05:00 Glucose 115 mg/dL (70-100) H 12/22/22 05:00 POC Whole Bld Glucose 143 mg/dL (70 - 100) H 12/22/22 16:52 Estimat Average Glucose 143 mg/dL (70-100) H 12/21/22 05:28 Hemoglobin A1c % 6.6 % (4.27-6.07) H 12/21/22 05:28 Calcium 8.7 mg/dL (8.5-10.3) 12/22/22 05:00 Phosphorus 3.6 mg/dL (2.5-4.6) 12/21/22 05:28 Magnesium 1.7 mg/dL (1.7-2.8) 12/21/22 05:28 Total Bilirubin 0.8 mg/dL (0.2-1.0) 12/20/22 13:07 AST 173 IU/L (10-42) H 12/20/22 13:07 ALT 46 IU/L (10-60) 12/20/22 13:07 Alkaline Phosphatase 88 IU/L (42-121) 12/20/22 13:07 Total Creatine Kinase 4801 IU/L (22-269) H* 12/22/22 05:00 Total Protein 8.3 g/dL (6.7-8.2) H 12/20/22 13:07 Albumin 4.5 g/dL (3.2-5.5) 12/20/22 13:07 Globulin 3.8 g/dL (2.1-4.2) 12/20/22 13:07 Albumin/Globulin Ratio 1.2 (1.0-2.2) 12/20/22 13:07 Lipase 31 U/L (22-51) 12/20/22 13:07 TSH 0.93 uIU/mL (0.34-5.60) 12/20/22 13:07 Urine Color BROWN 12/20/22 14:54 Urine Clarity CLOUDY (CLEAR) 12/20/22 14:54 Urine pH 5.5 PH (5.0-7.5) 12/20/22 14:54 Ur Specific [place] >=1.030 (1.002-1.030) H 12/20/22 14:54 Urine Protein 30 mg/dL (NEGATIVE) H 12/20/22 14:54 Urine Glucose (UA) NEGATIVE mg/dL (NEGATIVE) 12/20/22 14:54 Urine Ketones NEGATIVE mg/dL (NEGATIVE) 12/20/22 14:54 Urine Occult Blood LARGE (NEGATIVE) H 12/20/22 14:54 Urine Nitrite NEGATIVE (NEGATIVE) 12/20/22 14:54 Urine Bilirubin NEGATIVE (NEGATIVE) 12/20/22 14:54 Urine Urobilinogen 0.2 (NORMAL) E.U./dL (NORMAL) 12/20/22 14:54 Ur Leukocyte Esterase TRACE (NEGATIVE) H 12/20/22 14:54 Urine RBC TNTC /HPF (0-5) H 12/20/22 14:54 Urine WBC 6-10 /HPF (0-3) H 12/20/22 14:54 Ur Squamous Epith Cells NONE SEEN (<= Few) 12/20/22 14:54 Amorphous Sediment Few /LPF 12/20/22 14:54 Urine Bacteria Few /HPF (None Seen) 12/20/22 14:54 Ur Microscopic Review INDICATED 12/20/22 14:54 Urine Culture Comments INDICATED 12/20/22 14:54 Salicylates < 6.0 mg/dL 12/20/22 13:07 Urine Opiates Screen NEGATIVE (NEGATIVE) 12/20/22 14:54 Ur Oxycodone Screen NEGATIVE (NEGATIVE) 12/20/22 14:54 Urine Methadone Screen NEGATIVE (NEGATIVE) 12/20/22 14:54 Ur Propoxyphene Screen NEGATIVE (NEGATIVE) 12/20/22 14:54 Acetaminophen < 10 ug/mL (10-30) L 12/20/22 13:07 Ur Barbiturates Screen NEGATIVE (NEGATIVE) 12/20/22 14:54 Valproic Acid < 10.0 ug/mL 12/20/22 13:07 Ur Tricyclics Screen NEGATIVE (NEGATIVE) 12/20/22 14:54 Ur Phencyclidine Scrn NEGATIVE (NEGATIVE) 12/20/22 14:54 Ur Amphetamine Screen NEGATIVE (NEGATIVE) 12/20/22 14:54 U Methamphetamines Scrn NEGATIVE (NEGATIVE) 12/20/22 14:54 U Benzodiazepines Scrn NEGATIVE (NEGATIVE) 12/20/22 14:54 Urine Cocaine Screen NEGATIVE (NEGATIVE) 12/20/22 14:54 U Cannabinoids Screen POSITIVE (NEGATIVE) H 12/20/22 14:54 Ethyl Alcohol < 5.0 mg/dL 12/20/22 13:07 SARS-CoV-2 (PCR) NOT DETECTED 12/20/22 14:21
[2022-12-22] MEDS: HYDROmorphone 2 MG TABLET PO PRN (20:43)
[2022-12-22] MEDS: ATORVASTATIN 40 MG TABLET PO SCH (20:53)
[2022-12-22] MEDS: BACITRACIN ZINC OINT 1 PACKET TOP PRN (20:54)
[2022-12-23] MEDS: SODIUM CHLORIDE 0.9% 1,000 ML IV SCH ×3 (00:45→23:55)
[2022-12-23 04:41] LABS: BASOPHILS % (AUTO) 0.6 %; EOSINOPHILS # (AUTO) 0.2 10^3/uL (0.0-0.7); EOSINOPHILS % (AUTO) 2.9 %; HCT - HEMATOCRIT 37.9 % (42.0-52.0); HGB - HEMOGLOBIN 12.4 g/dL (14.0-18.0); LYMPHOCYTES # (AUTO) 2.5 10^3/uL (1.5-3.5); LYMPHOCYTES % (AUTO) 36.2 %; MEAN CORPUSCULAR HEMOGLOBIN 29.4 pg (27.0-31.0); MEAN CORPUSCULAR HGB CONC 32.7 g/dL (32.0-36.0); MEAN CORPUSCULAR VOLUME 89.8 fL (80.0-94.0); MEAN PLATELET VOLUME 9.1 fL (7.4-11.4); MONOCYTES # (AUTO) 0.4 10^3/uL (0.0-1.0); MONOCYTES % (AUTO) 6.1 %; NEUTROPHILS # (AUTO) 3.7 10^3/uL (1.5-6.6); NEUTROPHILS % (AUTO) 53.9 %; PLT - PLATELET COUNT 263 10^3/uL (130-450); RED BLOOD COUNT 4.22 10^6/uL (4.70-6.10); RED CELL DISTRIBUTION WIDTH 12.7 % (12.0-15.0); WHITE BLOOD COUNT 6.8 x10^3/uL (4.8-10.8)
[2022-12-23] MEDS: GABAPENTIN 300 MG CAPSULE PO SCH ×3 (05:02→21:10)
[2022-12-23 05:15] LABS: CALCIUM 9.4 mg/dL (8.5-10.3); CREATININE 1.1 mg/dL (0.6-1.2)
[2022-12-23] MEDS: INSULIN LISPRO 300 UNIT/3 ML PEN SUBQ SCH ×4 (08:20→20:28)
[2022-12-23] MEDS: risperiDONE 1 MG TABLET PO SCH ×2 (08:50→21:10)
[2022-12-23] MEDS: ACETAMINOPHEN 325 MG TABLET PO PRN ×2 (08:50→13:49)
[2022-12-23] MEDS: HYDROmorphone 2 MG TABLET PO PRN ×2 (08:50→13:49)
[2022-12-23] MEDS: DULoxetine 30 MG CAPSULE PO SCH ×2 (08:51→21:10)
[2022-12-23] MEDS: ASPIRIN EC 81 MG TABLET PO SCH (08:51)
[2022-12-23] MEDS: SODIUM CHLORIDE FLUSH 0.9% 10 ML SYRINGE IVP SCH ×3 (08:51→23:58)
[2022-12-23] MEDS: FLUTICASONE NASAL SPRAY NAS SCH (10:35)
--- NOTE | 2022-12-23 13:29 | PROVIDER PROGRESS NOTE ---
Assessment/Plan - Problem List (1) Rhabdomyolysis Qualifiers: Qualified Code(s): M62.82 - Rhabdomyolysis Assessment/Plan: Related to the ground-level fall then laying on the ground for several hours I reviewed his labs and CK is improving 11,000>> 7,000>> 4,000>> 2000 today. Plan: Continue with IV NS hydration Follow CK daily Qualifiers: Qualified Code(s): M62.82 - Rhabdomyolysis (2) Buprenorphine dependence Assessment/Plan: His old records report that he used to take buprenorphine and his nurse saw a buprenorphine patch on his back, 15 MCG per hour dose. Pharmacy was notified. Plan: Pharmacist found that the buprenorphine patches is ordered to be used prn, and it is a weekly patch, and it is due to come off. Will use this for pain and continue it only weekly, if we carry it. Dilaudid small doses will be substituted, if we cannot get Suboxone patches (3) DM type 2 (diabetes mellitus, type 2) Conclusion/Plan: He is on metformin at home. His A1c came back at 6.6 indicating excellent glu control Plan: Continue diabetic diet Will now resume metformin since ANGELO has resolved Cont fingerstick checks, sliding scale regular insulin coverage and hypoglycemia protocol (4) Paranoid schizophrenia Conclusion/Plan: Social Work started to work on a possible transfer once he is medically stabilized, however, if he is not suicidal or psychotic, and is only "wandering alot", he may not need Inpt care and he already has a Mental Health provider. Today he is hypersomnolent, and his RN said he did not sleep all night. Perhaps this patient has reversed his internal clock and is awake all night, but sleeps during the day. This may be why he was "wandering" at night. Plan: We will continue with his usual psych medications, as the list was carefully reconciled by pharmacy Patient needs psych evaluation, the ED provider was planning a telepsych eval, but now the patient needs medical stabilization first for his rhabdo and ANGELO. (5) ANGELO (acute kidney injury) Conclusion/Plan: Resolved. I reviewed all labs He is visibly less dehydrated clinically. This Angelo was likely from underlying volume depletion in addition to the rhabdo Plan: Avoid nephrotoxins Continue IV fluids Follow BMP daily (6) Ground-level fall Conclusion/Plan: Patient fell outdoors but near his home. Here he was mildly orthostatic with heart rate raising more than 20 points from supine to stand. Since yesterday, no orthostasis. Plan: Give pain meds as needed Cont iv NS - Current Meds Current Meds: Current Medications Generic Name Dose Route Start Last Admin Trade Name Freq PRN Reason Stop Dose Admin Acetaminophen 650 mg 12/20/22 16:20 12/23/22 08:50 Acetaminophen 325 Mg Tablet PO 650 mg Q4HR PRN Administration Pain 1 to 4, or Fever Aspirin 81 mg 12/21/22 09:00 12/23/22 08:51 Aspirin Ec 81 Mg Tablet PO 81 mg DAILY ANGELA Administration Atorvastatin Calcium 80 mg 12/20/22 21:00 12/22/22 20:53 Atorvastatin 40 Mg Tablet PO 80 mg HS ANGELA Administration Bacitracin 1 packet 12/21/22 19:35 12/22/22 20:54 Bacitracin Zinc Oint 1 Packet TOP 1 packet PRN PRN Administration Skin Care Duloxetine HCl 30 mg 12/20/22 21:00 12/23/22 08:51 Duloxetine 30 Mg Capsule PO 30 mg BID ANGELA Administration Fluticasone Propionate 1 sprays 12/21/22 09:00 12/23/22 10:35 Fluticasone Nasal [place] CRISTIAN 1 spr DAILY ANGELA Administration Gabapentin 600 mg 12/20/22 22:00 12/23/22 05:02 Gabapentin 300 Mg Capsule PO 600 mg TID ANGELA Administration Hydromorphone HCl 2 mg 12/22/22 18:43 12/23/22 08:50 Hydromorphone 2 Mg Tablet PO 2 mg Q8HR PRN Administration Severe Pain Sodium Chloride 1,000 mls @ 100 mls/hr 12/20/22 17:00 12/23/22 11:30 Normal Saline 0.9% IV 100 mls/hr .Q10H ANGELA Administration Insulin Human Lispro 1 - 5 unit 12/20/22 17:00 12/23/22 11:41 Insulin Lispro 300 Unit/3 Ml Pen SUBQ 3 unit 0800,1200,1700,2100 ANGELA Administration Protocol Risperidone 3 mg 12/20/22 21:00 12/23/22 08:50 Risperidone 1 Mg Tablet PO 3 mg BID ANGELA Administration Sodium Chloride 10 ml 12/20/22 17:00 12/23/22 08:51 Sodium Chloride Flush 0.9% 10 Ml Syringe IVP Not Given 0100,0900,1700 ANGELA - Lab Result Fish Bone Diagrams: 12/23/22 04:33 12/23/22 04:33 - Additional Planning My Orders: My Active Orders 12/22/22 18:04 Buprenorphine [Buprenorphine] 1 each TD Q7D PRN 12/22/22 18:43 HYDROmorphone [Dilaudid] 2 mg PO Q8HR PRN 12/24/22 05:00 BMP - BASIC METABOLIC PANEL [CHEM] DAILYLAB CBC - COMP BLD CT W/AUTO DIFF [HEME] DAILYLAB CK- CREATINE KINASE [CHEM] DAILYLAB Subjective - Subjective Patient Reports: Resting Comfortably Nursing Reports: Other (Minimally communicative) Objective Vital Signs: Vital Signs - 24 hr 12/22/22 12/22/22 12/23/22 15:41 23:50 08:00 Temperature 36.6 C 37.0 C 36.3 C L Heart Rate [ 67 72 Brachial] Respiratory 18 18 54 H Rate Blood Pressure 123/63 120/64 116/62 [Left Brachial artery] O2 Saturation 98 97 18 L Oxygen O2 Source Room air I&O (Last 24 Hrs): Intake and Output Totals x24h 12/21/22 12/22/22 12/23/22 23:59 23:59 23:59 Intake Total 3893.333 4573.666 1968.667 Output Total 1150 2250 850 Balance 2743.333 2323.666 1118.667 General: No acute distress HEENT: Mucous membr. moist/pink Neck: Supple Neuro: Alert, Other (Is slow to answer, stares at me after I start speaking with him, answers very quietly in short sentences) Cardiovascular: Regular rate Respiratory: No respiratory distress Abdomen: No tenderness Extremities: No clubbing, No edema, No tenderness/swelling - Results Results: Laboratory Results WBC 6.8 x10^3/uL (4.8-10.8) 12/23/22 04:33 RBC 4.22 10^6/uL (4.70-6.10) L 12/23/22 04:33 Hgb 12.4 g/dL (14.0-18.0) L 12/23/22 04:33 Hct 37.9 % (42.0-52.0) L 12/23/22 04:33 MCV 89.8 fL (80.0-94.0) 12/23/22 04:33 MCH 29.4 pg (27.0-31.0) 12/23/22 04:33 MCHC 32.7 g/dL (32.0-36.0) 12/23/22 04:33 RDW 12.7 % (12.0-15.0) 12/23/22 04:33 Plt Count 263 10^3/uL (130-450) 12/23/22 04:33 MPV 9.1 fL (7.4-11.4) 12/23/22 04:33 Neut # (Auto) 3.7 10^3/uL (1.5-6.6) 12/23/22 04:33 Lymph # (Auto) 2.5 10^3/uL (1.5-3.5) 12/23/22 04:33 [place] # (Auto) 0.4 10^3/uL (0.0-1.0) 12/23/22 04:33 Eos # (Auto) 0.2 10^3/uL (0.0-0.7) 12/23/22 04:33 Baso # (Auto) 0.0 10^3/uL (0.0-0.1) 12/23/22 04:33 Absolute Nucleated RBC 0.00 x10^3/uL 12/23/22 04:33 Nucleated RBC % 0.0 /100WBC 12/23/22 04:33 Sodium 142 mmol/L (135-145) 12/23/22 04:33 Potassium 4.0 mmol/L (3.5-5.0) 12/23/22 04:33 Chloride 107 mmol/L (101-111) 12/23/22 04:33 Carbon Dioxide 24 mmol/L (21-32) 12/23/22 04:33 Anion Gap 11.0 (6-13) 12/23/22 04:33 BUN 14 mg/dL (6-20) 12/23/22 04:33 Creatinine 1.1 mg/dL (0.6-1.2) 12/23/22 04:33 Estimated GFR (MDRD) 69 (>89) L 12/23/22 04:33 Glucose 111 mg/dL (70-100) H 12/23/22 04:33 POC Whole Bld Glucose 264 mg/dL (70 - 100) H 12/23/22 11:29 Estimat Average Glucose 143 mg/dL (70-100) H 12/21/22 05:28 Hemoglobin A1c % 6.6 % (4.27-6.07) H 12/21/22 05:28 Calcium 9.4 mg/dL (8.5-10.3) 12/23/22 04:33 Phosphorus 3.6 mg/dL (2.5-4.6) 12/21/22 05:28 Magnesium 1.7 mg/dL (1.7-2.8) 12/21/22 05:28 Total Bilirubin 0.8 mg/dL (0.2-1.0) 12/20/22 13:07 AST 173 IU/L (10-42) H 12/20/22 13:07 ALT 46 IU/L (10-60) 12/20/22 13:07 Alkaline Phosphatase 88 IU/L (42-121) 12/20/22 13:07 Total Creatine Kinase 2419 IU/L (22-269) H* 12/23/22 04:33 Total Protein 8.3 g/dL (6.7-8.2) H 12/20/22 13:07 Albumin 4.5 g/dL (3.2-5.5) 12/20/22 13:07 Globulin 3.8 g/dL (2.1-4.2) 12/20/22 13:07 Albumin/Globulin Ratio 1.2 (1.0-2.2) 12/20/22 13:07 Lipase 31 U/L (22-51) 12/20/22 13:07 TSH 0.93 uIU/mL (0.34-5.60) 12/20/22 13:07 Urine Color BROWN 12/20/22 14:54 Urine Clarity CLOUDY (CLEAR) 12/20/22 14:54 Urine pH 5.5 PH (5.0-7.5) 12/20/22 14:54 Ur Specific [place] >=1.030 (1.002-1.030) H 12/20/22 14:54 Urine Protein 30 mg/dL (NEGATIVE) H 12/20/22 14:54 Urine Glucose (UA) NEGATIVE mg/dL (NEGATIVE) 12/20/22 14:54 Urine Ketones NEGATIVE mg/dL (NEGATIVE) 12/20/22 14:54 Urine Occult Blood LARGE (NEGATIVE) H 12/20/22 14:54 Urine Nitrite NEGATIVE (NEGATIVE) 12/20/22 14:54 Urine Bilirubin NEGATIVE (NEGATIVE) 12/20/22 14:54 Urine Urobilinogen 0.2 (NORMAL) E.U./dL (NORMAL) 12/20/22 14:54 Ur Leukocyte Esterase TRACE (NEGATIVE) H 12/20/22 14:54 Urine RBC TNTC /HPF (0-5) H 12/20/22 14:54 Urine WBC 6-10 /HPF (0-3) H 12/20/22 14:54 Ur Squamous Epith Cells NONE SEEN (<= Few) 12/20/22 14:54 Amorphous Sediment Few /LPF 12/20/22 14:54 Urine Bacteria Few /HPF (None Seen) 12/20/22 14:54 Ur Microscopic Review INDICATED 12/20/22 14:54 Urine Culture Comments INDICATED 12/20/22 14:54 Salicylates < 6.0 mg/dL 12/20/22 13:07 Urine Opiates Screen NEGATIVE (NEGATIVE) 12/20/22 14:54 Ur Oxycodone Screen NEGATIVE (NEGATIVE) 12/20/22 14:54 Urine Methadone Screen NEGATIVE (NEGATIVE) 12/20/22 14:54 Ur Propoxyphene Screen NEGATIVE (NEGATIVE) 12/20/22 14:54 Acetaminophen < 10 ug/mL (10-30) L 12/20/22 13:07 Ur Barbiturates Screen NEGATIVE (NEGATIVE) 12/20/22 14:54 Valproic Acid < 10.0 ug/mL 12/20/22 13:07 Ur Tricyclics Screen NEGATIVE (NEGATIVE) 12/20/22 14:54 Ur Phencyclidine Scrn NEGATIVE (NEGATIVE) 12/20/22 14:54 Ur Amphetamine Screen NEGATIVE (NEGATIVE) 12/20/22 14:54 U Methamphetamines Scrn NEGATIVE (NEGATIVE) 12/20/22 14:54 U Benzodiazepines Scrn NEGATIVE (NEGATIVE) 12/20/22 14:54 Urine Cocaine Screen NEGATIVE (NEGATIVE) 12/20/22 14:54 U Cannabinoids Screen POSITIVE (NEGATIVE) H 12/20/22 14:54 Ethyl Alcohol < 5.0 mg/dL 12/20/22 13:07 SARS-CoV-2 (PCR) NOT DETECTED 12/20/22 14:21
[2022-12-23] MEDS ORDERED: BUPRENORPHINE 15 MCG/HR TOP PRN (16:00)
[2022-12-23] MEDS: metFORMIN 500 MG TABLET PO SCH (16:53)
[2022-12-23] MEDS: ATORVASTATIN 40 MG TABLET PO SCH (21:10)
[2022-12-24] MEDS: GABAPENTIN 300 MG CAPSULE PO SCH ×3 (06:50→21:12)
[2022-12-24 07:45] LABS: BASOPHILS % (AUTO) 0.5 %; EOSINOPHILS # (AUTO) 0.2 10^3/uL (0.0-0.7); HCT - HEMATOCRIT 35.1 % (42.0-52.0); HGB - HEMOGLOBIN 11.5 g/dL (14.0-18.0); LYMPHOCYTES % (AUTO) 26.4 %; MEAN CORPUSCULAR HEMOGLOBIN 29.7 pg (27.0-31.0); MEAN CORPUSCULAR HGB CONC 32.8 g/dL (32.0-36.0); MEAN CORPUSCULAR VOLUME 90.7 fL (80.0-94.0); MEAN PLATELET VOLUME 9.4 fL (7.4-11.4); MONOCYTES # (AUTO) 0.5 10^3/uL (0.0-1.0); MONOCYTES % (AUTO) 6.9 %; NEUTROPHILS # (AUTO) 4.7 10^3/uL (1.5-6.6); NEUTROPHILS % (AUTO) 62.9 %; PLT - PLATELET COUNT 259 10^3/uL (130-450); RED BLOOD COUNT 3.87 10^6/uL (4.70-6.10); RED CELL DISTRIBUTION WIDTH 12.6 % (12.0-15.0); WHITE BLOOD COUNT 7.4 x10^3/uL (4.8-10.8)
[2022-12-24] MEDS: metFORMIN 500 MG TABLET PO SCH ×2 (07:55→16:57)
[2022-12-24] MEDS: INSULIN LISPRO 300 UNIT/3 ML PEN SUBQ SCH ×4 (07:55→21:12)
[2022-12-24 07:58] LABS: CALCIUM 9.1 mg/dL (8.5-10.3); CREATININE 1.1 mg/dL (0.6-1.2)
[2022-12-24] MEDS: ASPIRIN EC 81 MG TABLET PO SCH (08:02)
[2022-12-24] MEDS: SODIUM CHLORIDE FLUSH 0.9% 10 ML SYRINGE IVP SCH ×2 (08:02→16:59)
[2022-12-24] MEDS: FLUTICASONE NASAL SPRAY NAS SCH (08:02)
[2022-12-24] MEDS: DULoxetine 30 MG CAPSULE PO SCH ×2 (08:02→21:12)
[2022-12-24] MEDS: risperiDONE 1 MG TABLET PO SCH ×2 (08:02→21:12)
[2022-12-24] MEDS: SODIUM CHLORIDE 0.9% 1,000 ML IV SCH ×2 (11:07→21:18)
[2022-12-24] MEDS: ACETAMINOPHEN 325 MG TABLET PO PRN ×2 (12:13→21:12)
[2022-12-24] MEDS: polyethylene glycoL 3350 17 GM PACKET PO SCH (13:38)
--- NOTE | 2022-12-24 20:01 | PROVIDER PROGRESS NOTE ---
Assessment/Plan - Problem List (1) Rhabdomyolysis Qualifiers: Qualified Code(s): M62.82 - Rhabdomyolysis Assessment/Plan: Related to the ground-level fall then laying on the ground for several hours I reviewed his labs and CK is improving 11,000>> 7,000>> 4,000>> 2000>> 800 today. Plan: Continue with IV NS hydration Follow CK daily Will consider him medically stable when iv NS can be stopped Qualifiers: Qualified Code(s): M62.82 - Rhabdomyolysis (2) Buprenorphine dependence Assessment/Plan: At admission his nurse saw a buprenorphine patch on his back. Pharmacy was notified, since it was initially not on his reconciled med list. Plan: Pharmacist found that the buprenorphine patches is ordered to be used prn, and it is a weekly patch Will use this for pain and continue it only weekly Dilaudid small doses were substituted for his back pain, until a Suboxone patch was applied. Will stop this Dilaudid order, given his possible hyper-somnolence. Order placed for OOB to chair for all meals (3) DM type 2 (diabetes mellitus, type 2) Conclusion/Plan: He is on metformin at home. His A1c came back at 6.6 indicating excellent glu control Plan: Continue diabetic diet Will now resume metformin since ANGELO has resolved Cont fingerstick checks, sliding scale regular insulin coverage and hypoglycemia protocol (4) Paranoid schizophrenia Conclusion/Plan: Social Work started to work on a possible transfer for when he is medically stabilized, however, if he is not suicidal or psychotic, and is only "wandering alot", he may not need Inpt care and he already has a Mental Health provider. For several days he is noted to be hypersomnolent, and his RN said he did not sleep all night. Perhaps this patient is awake all night, but sleeps during the day. This may be why he was "wandering" at night. His caregiver, with whom he lives, visited him here, and told his RN that he hears "voices of Indians inside of him". When he is staring blankly without answering, he may be hearing those voices. Plan: We will continue with his usual psych medications. Stopping iv Dilaudid (see #2) Patient needs psych evaluation, the ED provider was planning a telepsych eval to determine safe discharge location, but now the patient needs medical stabilization first for his rhabdo and ANGELO. (5) ANGELO (acute kidney injury) Conclusion/Plan: Resolved. I reviewed all labs He is visibly less dehydrated clinically. This Angelo was likely from underlying volume depletion (with orthostasis found), in addition to the rhabdo Plan: Avoid nephrotoxins Continue IV fluids Follow BMP daily (6) Ground-level fall Conclusion/Plan: Patient fell outdoors but near his home. Here he was mildly orthostatic with heart rate raising more than 20 points from supine to stand. Since 12/23, no orthostasis, being on iv NS. Plan: Give pain meds as needed Cont iv NS hydration. PT and OT evaluations ordered - Current Meds Current Meds: Current Medications Generic Name Dose Route Start Last Admin Trade Name Freq PRN Reason Stop Dose Admin Acetaminophen 650 mg 12/20/22 16:20 12/24/22 12:13 Acetaminophen 325 Mg Tablet PO 650 mg Q4HR PRN Administration Pain 1 to 4, or Fever Aspirin 81 mg 12/21/22 09:00 12/24/22 08:02 Aspirin Ec 81 Mg Tablet PO 81 mg DAILY ANGELA Administration Atorvastatin Calcium 80 mg 12/20/22 21:00 12/23/22 21:10 Atorvastatin 40 Mg Tablet PO 80 mg HS ANGELA Administration Bacitracin 1 packet 12/21/22 19:35 12/22/22 20:54 Bacitracin Zinc Oint 1 Packet TOP 1 packet PRN PRN Administration Skin Care Duloxetine HCl 30 mg 12/20/22 21:00 12/24/22 08:02 Duloxetine 30 Mg Capsule PO 30 mg BID ANGELA Administration Fluticasone Propionate 1 sprays 12/21/22 09:00 12/24/22 08:02 Fluticasone Nasal [place] CRISTIAN 1 spr DAILY ANGELA Administration Gabapentin 600 mg 12/20/22 22:00 12/24/22 14:46 Gabapentin 300 Mg Capsule PO 600 mg TID ANGELA Administration Sodium Chloride 1,000 mls @ 100 mls/hr 12/20/22 17:00 12/24/22 11:07 Normal Saline 0.9% IV 100 mls/hr .Q10H ANGLEA Administration Insulin Human Lispro 1 - 5 unit 12/20/22 17:00 12/24/22 16:58 Insulin Lispro 300 Unit/3 Ml Pen SUBQ Not Given 0800,1200,1700,2100 ANGELA Protocol Metformin HCl 1,000 mg 12/23/22 17:00 12/24/22 16:57 Metformin 500 Mg Tablet PO 1,000 mg BIDWM ANGELA Administration Buprenorphine 15 1 each 12/23/22 16:00 12/23/22 15:51 Mcg/Hr Patch TOP 1 each Q7D PRN Administration PAIN Polyethylene Glycol 17 gm 12/24/22 13:00 12/24/22 13:38 Polyethylene Glycol 3350 17 Gm Packet PO 17 gm DAILY ANGELA Administration Risperidone 3 mg 12/20/22 21:00 12/24/22 08:02 Risperidone 1 Mg Tablet PO 3 mg BID ANGELA Administration Sodium Chloride 10 ml 12/20/22 17:00 12/24/22 16:59 Sodium Chloride Flush 0.9% 10 Ml Syringe IVP Not Given 0100,0900,1700 ANGELA - Lab Result Fish Bone Diagrams: 12/24/22 07:25 12/25/22 05:07 - Additional Planning My Orders: My Active Orders 12/24/22 Evaluate and Treat OT [OT] Routine Evaluate and Treat PT [PT] Routine 12/24/22 13:00 polyethylene glycoL 3350 [Miralax] 17 gm PO DAILY 12/25/22 05:00 BMP - BASIC METABOLIC PANEL [CHEM] DAILYLAB CK- CREATINE KINASE [CHEM] DAILYLAB 12/26/22 05:00 BMP - BASIC METABOLIC PANEL [CHEM] DAILYLAB CK- CREATINE KINASE [CHEM] DAILYLAB 12/27/22 05:00 BMP - BASIC METABOLIC PANEL [CHEM] DAILYLAB CK- CREATINE KINASE [CHEM] DAILYLAB Subjective - Subjective Patient Reports: Resting Comfortably, No Complaints, Pain (Has occaisional back pain (chronic complaint), Suboxone patch helps the pain) Nursing Reports: Other (Minimal interaction, has a delay before ansering questions, staring at the person, then responds softly and with short sentences. He naps alot during the day.) Objective Vital Signs: Vital Signs - 24 hr 12/23/22 12/24/22 12/24/22 23:55 07:51 11:26 Temperature 36.5 C 36.4 C L Heart Rate [ 87 Activity] Heart Rate [ 67 72 Brachial] Heart Rate [ 85 Sitting] Heart Rate [ 111 H Standing] Respiratory 18 16 Rate Blood Pressure 147/88 H [Activity] Blood Pressure 139/86 H 141/79 H [Left Brachial artery] Blood Pressure 137/80 H [Sitting] Blood Pressure 146/67 H [Standing] O2 Saturation 97 96 12/24/22 16:00 Temperature 37.0 C Heart Rate [ Activity] Heart Rate [ 72 Brachial] Heart Rate [ Sitting] Heart Rate [ Standing] Respiratory 18 Rate Blood Pressure [Activity] Blood Pressure 146/66 H [Left Brachial artery] Blood Pressure [Sitting] Blood Pressure [Standing] O2 Saturation 99 Oxygen O2 Source Room air I&O (Last 24 Hrs): Intake and Output Totals x24h 12/22/22 12/23/22 12/24/22 23:59 23:59 23:59 Intake Total 4573.666 3238.667 2212 Output Total 2250 1550 1750 Balance 2323.666 1688.667 462 General: Alert, No acute distress HEENT: Mucous membr. moist/pink Neck: Supple, No JVD Neuro: Alert, Non Focal, Other (slow to answer questions, then answers quietly and with short sentences) Cardiovascular: Regular rate Respiratory: No respiratory distress Abdomen: Soft, No tenderness Extremities: No clubbing, No edema - Results Results: Laboratory Results WBC 7.4 x10^3/uL (4.8-10.8) 12/24/22 07:25 RBC 3.87 10^6/uL (4.70-6.10) L 12/24/22 07:25 Hgb 11.5 g/dL (14.0-18.0) L 12/24/22 07:25 Hct 35.1 % (42.0-52.0) L 12/24/22 07:25 MCV 90.7 fL (80.0-94.0) 12/24/22 07:25 MCH 29.7 pg (27.0-31.0) 12/24/22 07:25 MCHC 32.8 g/dL (32.0-36.0) 12/24/22 07:25 RDW 12.6 % (12.0-15.0) 12/24/22 07:25 Plt Count 259 10^3/uL (130-450) 12/24/22 07:25 MPV 9.4 fL (7.4-11.4) 12/24/22 07:25 Neut # (Auto) 4.7 10^3/uL (1.5-6.6) 12/24/22 07:25 Lymph # (Auto) 2.0 10^3/uL (1.5-3.5) 12/24/22 07:25 [place] # (Auto) 0.5 10^3/uL (0.0-1.0) 12/24/22 07:25 Eos # (Auto) 0.2 10^3/uL (0.0-0.7) 12/24/22 07:25 Baso # (Auto) 0.0 10^3/uL (0.0-0.1) 12/24/22 07:25 Absolute Nucleated RBC 0.00 x10^3/uL 12/24/22 07:25 Nucleated RBC % 0.0 /100WBC 12/24/22 07:25 Sodium 138 mmol/L (135-145) 12/24/22 07:25 Potassium 4.0 mmol/L (3.5-5.0) 12/24/22 07:25 Chloride 104 mmol/L (101-111) 12/24/22 07:25 Carbon Dioxide 26 mmol/L (21-32) 12/24/22 07:25 Anion Gap 8.0 (6-13) 12/24/22 07:25 BUN 16 mg/dL (6-20) 12/24/22 07:25 Creatinine 1.1 mg/dL (0.6-1.2) 12/24/22 07:25 Estimated GFR (MDRD) 69 (>89) L 12/24/22 07:25 Glucose 108 mg/dL (70-100) H 12/24/22 07:25 POC Whole Bld Glucose 105 mg/dL (70 - 100) H 12/24/22 16:44 Estimat Average Glucose 143 mg/dL (70-100) H 12/21/22 05:28 Hemoglobin A1c % 6.6 % (4.27-6.07) H 12/21/22 05:28 Calcium 9.1 mg/dL (8.5-10.3) 12/24/22 07:25 Phosphorus 3.6 mg/dL (2.5-4.6) 12/21/22 05:28 Magnesium 1.7 mg/dL (1.7-2.8) 12/21/22 05:28 Total Bilirubin 0.8 mg/dL (0.2-1.0) 12/20/22 13:07 AST 173 IU/L (10-42) H 12/20/22 13:07 ALT 46 IU/L (10-60) 12/20/22 13:07 Alkaline Phosphatase 88 IU/L (42-121) 12/20/22 13:07 Total Creatine Kinase 801 IU/L (22-269) H 12/24/22 07:25 Total Protein 8.3 g/dL (6.7-8.2) H 12/20/22 13:07 Albumin 4.5 g/dL (3.2-5.5) 12/20/22 13:07 Globulin 3.8 g/dL (2.1-4.2) 12/20/22 13:07 Albumin/Globulin Ratio 1.2 (1.0-2.2) 12/20/22 13:07 Lipase 31 U/L (22-51) 12/20/22 13:07 TSH 0.93 uIU/mL (0.34-5.60) 12/20/22 13:07 Urine Color BROWN 12/20/22 14:54 Urine Clarity CLOUDY (CLEAR) 12/20/22 14:54 Urine pH 5.5 PH (5.0-7.5) 12/20/22 14:54 Ur Specific [place] >=1.030 (1.002-1.030) H 12/20/22 14:54 Urine Protein 30 mg/dL (NEGATIVE) H 12/20/22 14:54 Urine Glucose (UA) NEGATIVE mg/dL (NEGATIVE) 12/20/22 14:54 Urine Ketones NEGATIVE mg/dL (NEGATIVE) 12/20/22 14:54 Urine Occult Blood LARGE (NEGATIVE) H 12/20/22 14:54 Urine Nitrite NEGATIVE (NEGATIVE) 12/20/22 14:54 Urine Bilirubin NEGATIVE (NEGATIVE) 12/20/22 14:54 Urine Urobilinogen 0.2 (NORMAL) E.U./dL (NORMAL) 12/20/22 14:54 Ur Leukocyte Esterase TRACE (NEGATIVE) H 12/20/22 14:54 Urine RBC TNTC /HPF (0-5) H 12/20/22 14:54 Urine WBC 6-10 /HPF (0-3) H 12/20/22 14:54 Ur Squamous Epith Cells NONE SEEN (<= Few) 12/20/22 14:54 Amorphous Sediment Few /LPF 12/20/22 14:54 Urine Bacteria Few /HPF (None Seen) 12/20/22 14:54 Ur Microscopic Review INDICATED 12/20/22 14:54 Urine Culture Comments INDICATED 12/20/22 14:54 Salicylates < 6.0 mg/dL 12/20/22 13:07 Urine Opiates Screen NEGATIVE (NEGATIVE) 12/20/22 14:54 Ur Oxycodone Screen NEGATIVE (NEGATIVE) 12/20/22 14:54 Urine Methadone Screen NEGATIVE (NEGATIVE) 12/20/22 14:54 Ur Propoxyphene Screen NEGATIVE (NEGATIVE) 12/20/22 14:54 Acetaminophen < 10 ug/mL (10-30) L 12/20/22 13:07 Ur Barbiturates Screen NEGATIVE (NEGATIVE) 12/20/22 14:54 Valproic Acid < 10.0 ug/mL 12/20/22 13:07 Ur Tricyclics Screen NEGATIVE (NEGATIVE) 12/20/22 14:54 Ur Phencyclidine Scrn NEGATIVE (NEGATIVE) 12/20/22 14:54 Ur Amphetamine Screen NEGATIVE (NEGATIVE) 12/20/22 14:54 U Methamphetamines Scrn NEGATIVE (NEGATIVE) 12/20/22 14:54 U Benzodiazepines Scrn NEGATIVE (NEGATIVE) 12/20/22 14:54 Urine Cocaine Screen NEGATIVE (NEGATIVE) 12/20/22 14:54 U Cannabinoids Screen POSITIVE (NEGATIVE) H 12/20/22 14:54 Ethyl Alcohol < 5.0 mg/dL 12/20/22 13:07 SARS-CoV-2 (PCR) NOT DETECTED 12/20/22 14:21
[2022-12-24] MEDS: ATORVASTATIN 40 MG TABLET PO SCH (21:12)
[2022-12-25] MEDS: SODIUM CHLORIDE FLUSH 0.9% 10 ML SYRINGE IVP SCH ×2 (05:31→08:08)
[2022-12-25 06:27] LABS: CALCIUM 9.3 mg/dL (8.5-10.3); POTASSIUM 4.1 mmol/L (3.5-5.0)
[2022-12-25] MEDS: GABAPENTIN 300 MG CAPSULE PO SCH ×2 (06:44→14:24)
[2022-12-25] MEDS: INSULIN LISPRO 300 UNIT/3 ML PEN SUBQ SCH ×2 (07:28→11:27)
[2022-12-25] MEDS: SODIUM CHLORIDE 0.9% 1,000 ML IV SCH (08:06)
[2022-12-25] MEDS: risperiDONE 1 MG TABLET PO SCH (08:07)
[2022-12-25] MEDS: ACETAMINOPHEN 325 MG TABLET PO PRN (08:07)
[2022-12-25] MEDS: ASPIRIN EC 81 MG TABLET PO SCH (08:07)
[2022-12-25] MEDS: metFORMIN 500 MG TABLET PO SCH (08:07)
[2022-12-25] MEDS: polyethylene glycoL 3350 17 GM PACKET PO SCH (08:08)
[2022-12-25] MEDS: DULoxetine 30 MG CAPSULE PO SCH (08:08)
[2022-12-25] MEDS: FLUTICASONE NASAL SPRAY NAS SCH (08:08)
--- NOTE | 2022-12-25 10:46 | Discharge Plan ---
Discharge Plan Problem Reviewed?: Yes Disposition: Home, Self Care Condition: Fair Diet: Regular Activity Restrictions: Activity as Tolerated Shower Restrictions: No Driving Restrictions: Yes (no driving) Health Concerns: You were brought to the emergency room because you were found down on the ground after falling. You been laying on the ground for quite some time in the cold. This left you with low temperature, and damage to the muscles of your body causing some dehydration. You needed to be brought in to be hydrated with fluid in your veins. And we needed to make sure that your kidneys were back to normal. From a physical perspective you have done well. Unfortunately your thoughts continue to be circling around your fear of being paralyzed. You had heard a pop in your back when you were doing physical therapy a long time ago. Since that time you think the pop may be a fracture in your back. All we can do is assure you that you do not have any back fracture and you are not in danger of being paralyzed. Plan of Treatment: 1. Please see your mental health provider in follow-up in the next 1 week. I do not know if he needs your medications adjusted to help you with your thought process. 2. Please see your primary care provider that takes care of your other medical needs in the next 2 weeks. I would like for them to make sure that your kidneys are still normal and that they check a BMP. You usually see Sarah Cedillo MD at the [facility] and she is due to see you February 15, 2023. Call and see if you can move up your appointment. The number is [phone]. Care Goals: To remain as independent as possible and living with your significant other/caregiver. Assessment: Patient is alert, oriented, understands why he ended up in the hospital, but is still fearful of the thoughts in his head. No Smoking: If you smoke, Please STOP! Call for help.
--- NOTE | 2022-12-25 11:25 | Discharge Plan ---
Discharge Plan Problem Reviewed?: Yes Disposition: Home, Self Care Condition: Fair Activity Restrictions: Activity as Tolerated Shower Restrictions: No Driving Restrictions: Yes (no driving) Health Concerns: You were brought to the emergency room because you were found down on the ground after falling. You been laying on the ground for quite some time in the cold. This left you with low temperature, and damage to the muscles of your body causing some dehydration. You needed to be brought in to be hydrated with fluid in your veins. And we needed to make sure that your kidneys were back to normal. From a physical perspective you have done well. Unfortunately your thoughts continue to be circling around your fear of being paralyzed. You had heard a pop in your back when you were doing physical therapy a long time ago. Since that time you think the pop may be a fracture in your back. All we can do is assure you that you do not have any back fracture and you are not in danger of being paralyzed. Plan of Treatment: 1. Please see your mental health provider in follow-up in the next 1 week. I do not know if he needs your medications adjusted to help you with your thought process. 2. Please see your primary care provider that takes care of your other medical needs in the next 2 weeks. I would like for them to make sure that your kidneys are still normal and that they check a BMP. You usually see Sarah Cedillo MD at the [facility] and she is due to see you February 15, 2023. Call and see if you can move up your appointment. The number is [phone]. Care Goals: To remain as independent as possible and living with your significant other/caregiver. Assessment: Patient is alert, oriented, understands why he ended up in the hospital, but is still fearful of the thoughts in his head. No Smoking: If you smoke, Please STOP! Call for help. Follow-up with: Sarah Cedillo MD [Primary Care Provider] -
--- NOTE | 2022-12-25 12:45 | DISCHARGE SUMMARY ---
Discharge Summary Admit Date: 12/20/22 Discharge Date: 12/25/22 Discharging Provider: Monique Vargas MD Primary Care Provider: Rohith Cedillo MD ([facility]) Code Status: Attempt Resuscitation Condition at Discharge: Fair Discharge Disposition: 01 Home, Self Care - DIAGNOSES Discharge Diagnoses with Status of Each Condition: 1. Rhabdomyolysis 2. Acute kidney injury 3. Paranoid schizophrenia 4. Ground-level fall 5. Buprenorphine dependence 6. Type 2 diabetes mellitus, without complications, not on long-term use of insulin - HPI History of Present Illness: This is a 57-year-old male with a history of DM on Metformin, paranoid schizophrenia and Hx of kidney stones with prior lithotripsies. He lives with his caregiver in a trailer. Recently he has been wandering when the caregiver is not home (because she has an evening job). Yesterday he went outside at night and "wanted to build a campfire". He fell by tripping on something and could not get up therefore laid on his R side on the ground in that position for many hours. He was found by his caregiver when she returned home. He was brought to the emergency room with complaints of pain of his back which was felt to be from the fall. In the ED the patient underwent trauma work-up that showed no areas with hemorrhage or fractures. Lab work however showed rhabdomyolysis present with a CK of 11,000 and MILTON present with creatinine of 1.7 (his usual creatinine is 1.1). He was started on IV saline in the ED. The emergency room provider spoke to me on the Hospitalist team for managing the patient by admitting him for further treatment of his rhabdomyolysis and MILTON. The patient describes to me that he has not worked since January or 2013 because of a disability. He does not drive a car. - Past Medical History Cardiovascular: reports: None Respiratory: reports: None Neuro: reports: None Endocrine/Autoimmune: reports: Type 2 diabetes GI: reports: None : reports: Kidney stones HEENT: reports: None Psych: reports: Schizophrenia Musculoskeletal: reports: None Derm: reports: None MRSA Hx?: No - Past Surgical History General: reports: Appendectomy /ADOLESCENT MEDICINE SPECIALIST: reports: Other (Several lithotripsies) - CONSULTS | PROCEDURES Procedures: 1. Head CT without acute intracranial process seen 2. Cervical spine CT without evidence of acute cervical fracture or dislocation. Cervical spondylitic changes seen. 3. Thoracic spine CT without any evidence of acute bony abnormality 4. Lumbar spine CT without any acute abnormality in the lumbar spine. Extensive bilateral renal stones and bilateral floating renal pelvic stones. 5. Urine culture without any growth - HOSPITAL COURSE Hospital Course: For his rhabdomyolysis the patient was started on IV fluids. On the day of discharge CPK was 400. Social work did evaluate the patient and he was not felt to be a candidate for a transfer. oyster bed worker met with patient to follow up on mental health evaluation. Patient denies SI, HI, AH, and VH. He states that he has been unsteady at home partially because he does not remember to use his walker consistently. The patient reports he is in the hospital because he fell at home when trying to build a fire pit and was down for several hours. He stated that he meets with Dr. Lawrence through [facility] for psychiatry and recently had his medications adjusted. The patient is cooperative with social media developer and engaging; he is A/O x4. Patient maintained intense eye contacted but answered all questions appropriately. Received Nohelia Conroy [phone] requeting follow up on patient. She reports that significant other/caregiver Mer is experiencing neonatal intensive care nurse burnout and they have begun discussing placement for patient. Mer informed oNhelia that patient has been responding to internal stimuli at home and occasionally combative when she tries to provide care. She will reach out to [facility] to inquire. Nohelia requested call if patient discharges to home. He already had a mental health provider. Had a safe discharge to his own home. And was ambulating and not needing any assistance. As such the patient was sent back to his usual home environment. There were no changes in medications at discharge. His discharge instructions were reviewed with his caregiver and roommate.At discharge temperature was 36.4. Heart rate 83. Blood pressure 143/90. Respirations 20. 99% on room air. He was alert, sometimes nursing would give him a walker for balance sake. But he did not need any assist. He was oriented to person, place, time but very forgetful. Would not remember what you just told him, and then you have to repeat yourself 10 minutes later. Neck was supple. Lungs were clear. He had a regular rate and rhythm. Abdomen is obese, soft, nontender. Had a large bowel movement on December 24. He was asked to follow-up with his primary care provider. And his mental health care provider. Greater than 30 minutes was spent coordinating discharge - ALLERGIES Allergies/Adverse Reactions: Allergies Allergy/AdvReac Type Severity Reaction Status Date / Time diazepam [From Valium] Allergy Unknown Verified 12/20/22 12:36 - MEDICATIONS Home Medications: Ambulatory Orders Medication Instructions Recorded Confirmed Blood Sugar Diagnostic [Glucometer 1 each QID #120 strip 04/24/20 12/20/22 Strips] Blood-Glucose Meter [Glucometer] 1 each MC ONCE #1 each 04/24/20 12/20/22 Lancets 1 each MC QID #120 each 04/24/20 12/20/22 metFORMIN [Glucophage] 1,000 mg PO BIDWM 08/29/20 12/20/22 Aspirin [Aspirin EC] 81 mg PO DAILY 12/20/22 12/20/22 Atorvastatin Calcium [Lipitor] 80 mg PO HS 12/20/22 12/20/22 DULoxetine [Cymbalta] 30 mg PO BID 12/20/22 12/20/22 Fluticasone [Flonase] 1 sprays CRISTIAN DAILY 12/20/22 12/20/22 Gabapentin [Neurontin] 600 mg PO TID 12/20/22 12/20/22 risperiDONE [Risperdal] 3 mg PO BID 12/20/22 12/20/22 Buprenorphine 1 each TD Q7D PRN 12/21/22 12/21/22 - LABS Result Diagrams: 12/24/22 07:25 12/25/22 05:07
[2022-12-25 14:36] VITALS: BP 143/90
== END 2022-12-25 14:40 | disposition home or self-care (01) | DRG 558 ==
LOC: ED 12:33 → MS2 16:20
PROVIDERS: ADMIT Internal Medicine; ATTEND Specialist
DX: M62.82 Rhabdomyolysis (principal); N17.9 Acute kidney failure, unspecified; S39.92XA Unspecified injury of lower back, initial encounter; S09.90XA Unspecified injury of head, initial encounter; W01.0XXA Fall on same level from slipping, tripping and stumbling without subsequent striking against object, initial encounter; Y92.007 Garden or yard of unspecified non-institutional (private) residence as the place of occurrence of the external cause; F20.0 Paranoid schizophrenia; N20.0 Calculus of kidney; D72.829 Elevated white blood cell count, unspecified; Z20.822 Contact with and (suspected) exposure to COVID-19; F11.20 Opioid dependence, uncomplicated; E11.9 Type 2 diabetes mellitus without complications; Z79.84 Long term (current) use of oral hypoglycemic drugs; Z91.81 History of falling; I95.1 Orthostatic hypotension; G47.10 Hypersomnia, unspecified; M54.9 Dorsalgia, unspecified; E86.0 Dehydration
CPT/HCPCS: 36415; 70450; 72125; 72128; 72131; 80048; 80053; 80164; 80306; 80307; 81001; 82550; 83036; 83690; 83735; 84100; 84443; 85025; 87086; 87635; 96360; 97161; 97166; 99284; 99285; A9270; G0480; 80320; 80329; 81003

== ENCOUNTER 2023-02-14 02:12 | Outpatient (CLI) | payer MEDICARE, MEDICAID | END 2023-02-14 23:59 | disposition critical access hospital (66) | LOC: EMS 02:12 | DX: R53.1 Weakness (principal); R29.6 Repeated falls; R07.9 Chest pain, unspecified | CPT/HCPCS: A0425; A0429 ==

== ENCOUNTER 2023-02-14 02:31 | Inpatient (IN) | payer MEDICARE, MEDICAID ==
--- NOTE | 2023-02-14 02:56 | ED Physician Documentation ---
History of Present Illness - Stated complaint Stated Complaint: FALL/GEN WEAKNESS - Chief complaint Chief Complaint: General - History obtained from History obtained from: Patient, EMS - Additonal information Additional information: Patient is brought in by ambulance due to generalized weakness and falls. Patient is able to contribute to HPI, with some further information provided by EMS. EMS says that caregiver on scene said patient had 3 or 4 falls over the past 24 hours, and that tonight, he was too weak to get back up from the floor. Patient says his caregiver is actually his girlfriend. Patient denies loss of consciousness. He does not know what causes him to fall. EMS says that when they arrived on scene, patient was still on the floor, skilled nursing underneath a end table. Patient was admitted under similar circumstances 2 months ago to this hospital after having fallen outside of the home and lying on the ground long enough to have caused rhabdomyolysis with acute kidney injury.On tonight's HPI, patient cannot give me any estimation as to how long he was lying on the ground, even if it was minutes or hours or longer. Review of Systems Cardiac: reports: Reviewed and negative Respiratory: reports: Reviewed and negative Musculoskeletal: reports: Back pain (chronic) Neurologic: reports: Generalized weakness, Headache. denies: Focal weakness, Numbness, LOC PD PAST MEDICAL HISTORY - Past Medical History Cardiovascular: None Respiratory: None Neuro: None Endocrine/Autoimmune: Type 2 diabetes GI: None : Kidney stones HEENT: None Psych: Schizophrenia Musculoskeletal: None Derm: None - Past Surgical History Past Surgical History: Yes General: Appendectomy /BODY FITTER: Other - Present Medications Home Medications: Ambulatory Orders Medication Instructions Recorded Confirmed Blood Sugar Diagnostic [Glucometer 1 each QID #120 strip 04/24/20 12/20/22 Strips] Blood-Glucose Meter [Glucometer] 1 each ONCE #1 each 04/24/20 12/20/22 Lancets 1 each QID #120 each 04/24/20 12/20/22 metFORMIN [Glucophage] 1,000 mg PO BIDWM 08/29/20 12/20/22 Aspirin [Aspirin EC] 81 mg PO DAILY 12/20/22 12/20/22 Atorvastatin Calcium [Lipitor] 80 mg PO HS 12/20/22 12/20/22 DULoxetine [Cymbalta] 30 mg PO BID 12/20/22 12/20/22 Fluticasone [Flonase] 1 sprays CRISTIAN DAILY 12/20/22 12/20/22 Gabapentin [Neurontin] 600 mg PO TID 12/20/22 12/20/22 risperiDONE [Risperdal] 3 mg PO BID 12/20/22 12/20/22 Buprenorphine 1 each TD Q7D PRN 12/21/22 12/21/22 - Allergies Allergies/Adverse Reactions: Allergies Allergy/AdvReac Type Severity Reaction Status Date / Time diazepam [From Valium] Allergy Unknown Verified 12/20/22 12:36 - Social History Does the pt smoke?: No Smoking Status: Former smoker Does the pt drink ETOH?: No Does the pt have substance abuse?: No - Immunizations Immunizations are current?: Yes - POLST Patient has POLST: No PD ED PE NORMAL - Vitals Vital signs reviewed: Yes - General General: Alert and oriented X 3 (it does take him a few tries to get year (initially says 2020, then 2021 which he repeats before finally saying 2022)), No acute distress, Well developed/nourished - HEENT HEENT: PERRL, EOMI, Other (superficial abrasions to forehead bilaterally; tacky/pasty mucous membranes) - Neck Neck: Supple, no meningeal sign, No bony TTP - Cardiac Cardiac: No murmur - Respiratory Respiratory: No respiratory distress, Clear bilaterally - Abdomen Abdomen: Soft, Non tender - Back Back: No spinal TTP - Derm Derm: Normal color, Warm and dry - Extremities Extremities: No tenderness to palpate, Normal ROM s pain, No edema, Other (abrasions to both great toes) - Neuro Neuro: meal room hand 2-12 intact, No motor deficit (5/5 bilateral heavy duty custodian, 5/5 bilateral dorsi/plantarflexion), No sensory deficit, Normal speech Eye Opening: Spontaneous Motor: Obeys Commands Verbal: Oriented GCS Score: 15 - Psych Psych: Normal affect (affect is odd at times, seems distracted and indifferent for brief periods, but polite and mostly is involved in conversation ) PD ED PE EXPANDED - Cardiac Cardiac: Tachy, Regular Rhythm Results - Vitals Vitals: Vital Signs - 24 hr 02/14/23 02/14/23 02/14/23 02:45 02:50 05:00 Temperature 37.1 C Heart Rate 143 H 138 H 117 H Respiratory 20 17 10 L Rate Blood Pressure 145/77 H 145/77 H 169/92 H O2 Saturation 95 94 96 02/14/23 02/14/23 02/14/23 07:00 09:37 11:03 Temperature Heart Rate 118 H 105 H 92 Respiratory 13 18 18 Rate Blood Pressure 141/76 H 156/88 H 151/86 H O2 Saturation 97 98 98 Oxygen O2 Source Room air - EKG (time done) No standard instances EKG releavant findings:: EKG personally interpreted by author of this note. Relevant findings are: Rate: Rate (enter#) (121), Tachy Rhythm: Sinus tachycardia [place]: Normal Intervals: Normal [place] QRS: Normal Ischemia: Normal ST segments - Labs Labs: Laboratory Tests 02/14/23 02/14/23 02/14/23 03:15 03:15 03:15 WBC 20.4 H RBC 4.80 Hgb 14.5 Hct 42.8 MCV 89.2 MCH 30.2 MCHC 33.9 RDW 13.0 Plt Count 298 MPV 9.2 Neut # (Auto) Not Reportable Lymph # (Auto) Not Reportable Rice # (Auto) Not Reportable Eos # (Auto) Not Reportable Baso # (Auto) Not Reportable Absolute Nucleated RBC Not Reportable Total Counted 100 Band Neuts % (Manual) 9 Abnorm Lymph % (Manual) 0 Nucleated RBC % Not Reportable Neutrophils # (Manual) 18.2 H Lymphocytes # (Manual) 1.0 L Monocytes # (Manual) 1.2 H Eosinophils # (Manual) 0.0 Basophils # (Manual) 0.0 Differential Comment MANUAL DIFFERENTIAL Sodium 139 Potassium 4.5 Chloride 103 Carbon Dioxide 21 Anion Gap 15.0 H BUN 22 H Creatinine 1.9 H Estimated GFR (MDRD) 37 L Glucose 199 H Calcium 10.0 Total Bilirubin 0.8 AST 155 H ALT 58 Alkaline Phosphatase 107 Total Creatine Kinase 09199 H* CK-MB (CK-2) 265.9 H Total Protein 8.3 H Albumin 4.2 Globulin 4.1 Albumin/Globulin Ratio 1.0 Lipase 34 TSH Urine Color Urine Clarity Urine pH Ur Specific [place] Urine Protein Urine Glucose (UA) Urine Ketones Urine Occult Blood Urine Nitrite Urine Bilirubin Urine Urobilinogen Ur Leukocyte Esterase Urine RBC Urine WBC Ur Squamous Epith Cells Urine Bacteria Ur Microscopic Review Urine Culture Comments Urine Opiates Screen Ur Oxycodone Screen Urine Methadone Screen Ur Propoxyphene Screen Ur Barbiturates Screen Ur Tricyclics Screen Ur Phencyclidine Scrn Ur Amphetamine Screen U Methamphetamines Scrn U Benzodiazepines Scrn Urine Cocaine Screen U Cannabinoids Screen Ethyl Alcohol < 5.0 02/14/23 02/14/23 03:15 10:34 WBC RBC Hgb Hct MCV MCH MCHC RDW Plt Count MPV Neut # (Auto) Lymph # (Auto) Rice # (Auto) Eos # (Auto) Baso # (Auto) Absolute Nucleated RBC Total Counted Band Neuts % (Manual) Abnorm Lymph % (Manual) Nucleated RBC % Neutrophils # (Manual) Lymphocytes # (Manual) Monocytes # (Manual) Eosinophils # (Manual) Basophils # (Manual) Differential Comment Sodium Potassium Chloride Carbon Dioxide Anion Gap BUN Creatinine Estimated GFR (MDRD) Glucose Calcium Total Bilirubin AST ALT Alkaline Phosphatase Total Creatine Kinase CK-MB (CK-2) Total Protein Albumin Globulin Albumin/Globulin Ratio Lipase TSH 1.21 Urine Color BROWN Urine Clarity CLEAR Urine pH 6.0 Ur Specific [place] 1.025 Urine Protein 100 H Urine Glucose (UA) NEGATIVE Urine Ketones NEGATIVE Urine Occult Blood LARGE H Urine Nitrite NEGATIVE Urine Bilirubin NEGATIVE Urine Urobilinogen 0.2 (NORMAL) Ur Leukocyte Esterase NEGATIVE Urine RBC 11-25 H Urine WBC 0-3 Ur Squamous Epith Cells NONE SEEN Urine Bacteria Few Ur Microscopic Review INDICATED Urine Culture Comments NOT INDICATED Urine Opiates Screen NEGATIVE Ur Oxycodone Screen NEGATIVE Urine Methadone Screen NEGATIVE Ur Propoxyphene Screen NEGATIVE Ur Barbiturates Screen NEGATIVE Ur Tricyclics Screen NEGATIVE Ur Phencyclidine Scrn NEGATIVE Ur Amphetamine Screen NEGATIVE U Methamphetamines Scrn NEGATIVE U Benzodiazepines Scrn NEGATIVE Urine Cocaine Screen NEGATIVE U Cannabinoids Screen POSITIVE H Ethyl Alcohol - Rads (name of study) chest xray Relevant Findings:: Prelim report reviewed, See rad report CTH Relevant Findings:: Prelim report reviewed, See rad report CT cervical spine Relevant Findings:: Prelim report reviewed, See rad report PD Medical Decision Making - ED course Complexity details: reviewed old records, reviewed results, re-evaluated patient, considered differential, d/w patient ED course: Patient has significant leukocytosis on CBC (white blood cell count 20.4). More concerning is his total CPK is 19,799. He has abnormal kidney function tests with a BUN of 22 and creatinine of 1.9. By comparison, when he was admitted in November 2022 for similar issues, his CPK was 11,088, gradually dropping down to 408 prior to his discharge. When he was admitted in November, his creatinine was 1.7, improving to 1.0 prior to discharge. Thus, his baseline BUN and creatinine are in normal ranges. Given the very significantly elevated CPK in combination with the elevated BUN and creatinine, patient would benefit admission to the hospital for ongoing IV fluids and monitoring of his kidney function tests and the CPK. He is given 2 L normal saline IV bolus, followed by maintenance normal saline. He is held in the emergency department until a bed will hopefully become available later this morning. Care of patient is turned over the oncoming emergency department physician (Dr. Parker) at the end of my shift. Departure - Departure Disposition: [facility] DC/Xfer Clinical Impression: Rhabdomyolysis, MILTON (acute kidney injury), Leukocytosis Condition: Serious Discharge Date/Time: 02/14/23 12:08
[2023-02-14] MEDS ORDERED: SODIUM CHLORIDE 0.9% 1,000 ML IV STA ×3 (03:11→06:20)
[2023-02-14 03:20] LABS: BASOPHILS % (AUTO) 0.2 %; HCT - HEMATOCRIT 42.8 % (42.0-52.0); HGB - HEMOGLOBIN 14.5 g/dL (14.0-18.0); LYMPHOCYTES % (AUTO) 2.3 %; MEAN CORPUSCULAR HEMOGLOBIN 30.2 pg (27.0-31.0); MEAN CORPUSCULAR HGB CONC 33.9 g/dL (32.0-36.0); MEAN CORPUSCULAR VOLUME 89.2 fL (80.0-94.0); MEAN PLATELET VOLUME 9.2 fL (7.4-11.4); MONOCYTES % (AUTO) 5.3 %; NEUTROPHILS % (AUTO) 91.7 %; PLT - PLATELET COUNT 298 10^3/uL (130-450); WHITE BLOOD COUNT 20.4 x10^3/uL (4.8-10.8)
[2023-02-14 03:27] LABS: ABNORMAL LYMPHS % (MANUAL) 0 %
[2023-02-14 03:50] LABS: BAND NEUTROPHILS % (MANUAL) 9 %; LYMPHOCYTES % (MANUAL) 5 %; MONOCYTES # (MANUAL) 1.2 10^3/uL (0.0-1.0); NEUTROPHILS # (MANUAL) 18.2 10^3/uL (1.5-6.6)
[2023-02-14 03:51] LABS: DIFFERENTIAL COMMENT MANUAL DIFFERENTIAL
[2023-02-14 03:56] LABS: ALBUMIN 4.2 g/dL (3.2-5.5); ALKALINE PHOSPHATASE 107 IU/L (42-121); ALT ALANINE AMINOTRANSFERASE 58 IU/L (10-60); AST ASPARTATE AMINOTRANSFERASE 155 IU/L (10-42); BILIRUBIN,TOTAL 0.8 mg/dL (0.2-1.0); BUN - BLOOD UREA NITROGEN 22 mg/dL (6-20); CARBON DIOXIDE - CO2 21 mmol/L (21-32); CHLORIDE 103 mmol/L (101-111); CREATININE 1.9 mg/dL (0.6-1.2); ETOH - ETHANOL < 5.0 mg/dL; GFR - MDRD 37 (>89); GLUCOSE 199 mg/dL (70-100); LIPASE 34 U/L (22-51); POTASSIUM 4.5 mmol/L (3.5-5.0); SODIUM 139 mmol/L (135-145); TOTAL PROTEIN 8.3 g/dL (6.7-8.2)
[2023-02-14 04:00] LABS: CK- CREATINE KINASE 19799 IU/L (22-269)
--- NOTE | 2023-02-14 07:46 | CT Report ---
PROCEDURE: HEAD WO INDICATIONS: fall, headache TECHNIQUE: Noncontrast 4.5 mm thick angled axial sections acquired from the foramen magnum to the vertex. For r adiation dose reduction, the following was used: automated exposure control, adjustment of mA and/or kV according to patient size. COMPARISON: 12/20/2022 FINDINGS: Image quality: Excellent. CSF spaces: Basal cisterns are patent. No extra-axial fluid collections. Ventricles are normal in size and shape. Brain: No midline shift. No intracranial masses or hemorrhage. No mass effect. Galan-white matter in terface is normal. There cerebral volume loss for age with resultant ventricular and sulcal prominenc e. There are periventricular and deep white matter chronic small vessel ischemic changes. Atheroscler otic calcifications are noted in the intracranial segments of the bilateral internal carotid arteries . Skull and face: Calvarium and visualized facial bones are intact, without suspicious lesions. Sinuses: Visualized sinuses and mastoids are clear. IMPRESSION: CT head without acute intracranial abnormalities. No acute calvarial fractures. Stable appearance of age-related senescent changes and sequela of chronic small vessel ischemic disea se. No significant discrepancy with initial interpretation by overnight radiologist. Reviewed by: Luis A Lynne MD on 02/14/2023 7:45 AM PDT Approved by: Luis A Lynne MD on 02/14/2023 7:45 AM PDT Station ID: [id number]
--- NOTE | 2023-02-14 07:50 | CT Report ---
PROCEDURE: CERVICAL SPINE WO INDICATIONS: fall, neck pain TECHNIQUE: Noncontrast 3 mm thick sections acquired from the skull base to the T4 level. Sagittal and coronal r eformats were then constructed. For radiation dose reduction, the following was used: automated exp osure control, adjustment of mA and/or kV according to patient size. COMPARISON: 12/20/2022 FINDINGS: Image quality: Excellent. Bones: No acute fractures or dislocations. No acute compression fractures of the vertebral bodies. Craniocervical junction is intact. C1-C2 relationship is preserved. Visualized superior ribs are inta ct. Moderate multilevel cervical spondylosis with associated facet arthropathy. Findings are most pronoun efe from C3-4 through C6-7. Soft tissues: Prevertebral soft tissues are normal in thickness. No paravertebral hematomas. No ap ical pneumothoraces. IMPRESSION: CT cervical spine without acute fracture or traumatic malalignment. Moderate multilevel cervical spondylosis. No significant discrepancy with initial interpretation by overnight radiologist. Reviewed by: Luis A Lynne MD on 02/14/2023 7:48 AM PDT Approved by: Luis A Lynne MD on 02/14/2023 7:48 AM PDT Station ID: [id number]
--- NOTE | 2023-02-14 07:58 | XRAY Report ---
PROCEDURE: Chest 1 View X-Ray INDICATIONS: dyspnea TECHNIQUE: One view of the chest was acquired. COMPARISON: 09/17/2020 FINDINGS: Surgical changes and devices: Multiple surgical clips noted in the left axilla as before. Lungs and pleura: Low lung volumes bilaterally. Diffuse interstitial prominence with crowding of the bronchovasculature. More pronounced patchy left upper lung zone airspace opacities. No substantial p leural effusion noted. No pneumothorax. Mediastinum: Mediastinal contours appear stable. Heart size is normal. Bones and chest wall: No suspicious bony lesions. Overlying soft tissues appear unremarkable. IMPRESSION: Diffuse interstitial prominence with central vascular crowding likely related to low lung volumes. Po ssible more prominent left upper lung zone airspace opacity versus atelectasis. No definite consolida tion identified. Consider dedicated upright PA and lateral views of the chest to confirm findings when patient is able . No significant discrepancy with initial interpretation by overnight radiologist. Reviewed by: Luis A Lynne MD on 02/14/2023 7:56 AM PDT Approved by: Luis A Lynne MD on 02/14/2023 7:56 AM PDT Station ID: [id number]
[2023-02-14 10:44] LABS: MUDS CUTOFF CONCENTRATIONS CUTOFF CONC BELOW:
[2023-02-14 10:47] LABS: BILIRUBIN,URINE NEGATIVE (NEGATIVE); GLUCOSE, URINE (UA) NEGATIVE (NEGATIVE); KETONES,URINE (UA) NEGATIVE (NEGATIVE); LEUKOCYTE ESTERASE, URINE NEGATIVE (NEGATIVE); NITRITE,URINE NEGATIVE (NEGATIVE); OCCULT BLOOD,URINE LARGE (NEGATIVE); PROTEIN,URINE 100 mg/dL (NEGATIVE); UROBILINOGEN,URINE 0.2 (NORMAL) E.U./dL (NORMAL)
[2023-02-14 10:48] LABS: CLARITY,URINE CLEAR (CLEAR)
[2023-02-14 10:58] LABS: AMPHETAMINE SCREEN,URINE NEGATIVE (NEGATIVE); BARBITURATE SCREEN,UR NEGATIVE (NEGATIVE); BENZODIAZEPINES SCREEN, URINE NEGATIVE (NEGATIVE); COCAINE SCREEN URINE NEGATIVE (NEGATIVE); METHADONE SCREEN, URINE NEGATIVE (NEGATIVE); METHAMPHETAMINES SCREEN, URINE NEGATIVE (NEGATIVE); OPIATE SCREEN, URINE NEGATIVE (NEGATIVE); OXYCODONE SCREEN, URINE NEGATIVE (NEGATIVE); PROPOXYPHENE SCREEN, URINE NEGATIVE (NEGATIVE); THC CANNABINOID SCREEN, URINE POSITIVE (NEGATIVE); TRICYCLIC ANTIDEPRESSANT,URINE NEGATIVE (NEGATIVE)
[2023-02-14 11:02] LABS: BACTERIA,URINE Few /HPF (None Seen); SQUAMOUS EPITHELIAL CELL,UR NONE SEEN (<= Few); WBC,URINE 0-3 /HPF (0-3)
--- NOTE | 2023-02-14 11:04 | ED Physician Documentation ---
ED Addendum - Addendum Addendum: 02/14/23 10:35 - Patient signed out to me by Dr. Kilgore. Patient is boarding in the emergency department pending admission for rhabdomyolysis when a bed is available. After our morning meeting, there is one [facility] bed available and I discussed the case with Dr. Roberto.She will admit the patient for further management. Patient has been resting comfortably, heart rate in the low 100s, no complaints this morning. Still has not yet made urine so I had ordered a Watson catheter So that we are able to strictly monitor his output given his rhabdo and acute kidney injury Departure - Departure Disposition: 66 [facility] DC/Xfer Clinical Impression: Rhabdomyolysis, MILTON (acute kidney injury), Leukocytosis Condition: Serious
[2023-02-14] MEDS ORDERED: SODIUM CHLORIDE FLUSH 0.9% 10 ML SYRINGE IVP PRN (11:26)
[2023-02-14] MEDS ORDERED: ONDANSETRON 4 MG/2 ML VIAL IVP PRN (11:26)
[2023-02-14] MEDS: SODIUM CHLORIDE 0.9% 1,000 ML IV SCH ×2 (12:15→20:29)
[2023-02-14] MEDS: SODIUM CHLORIDE FLUSH 0.9% 10 ML SYRINGE IVP SCH (12:15)
[2023-02-14] MEDS: INSULIN LISPRO 300 UNIT/3 ML PEN SUBQ SCH ×3 (13:45→20:44)
--- NOTE | 2023-02-14 14:48 | HISTORY & PHYSICAL EXAMINATION ---
Chief Complaint - Chief Complaint Chief Complaint: pain after multiple falls History of Present Illness - Admitted From Admitted From:: ED - History Obtained From History obtained from: ED provider and chart review - History of Present Illness HPI Comment/Other: This is a 57-year-old male with a history of diabetes on metformin, paranoid schizophrenia on medications, chronic back pain and is Buprenorphine dependent, history of kidney stones and prior lithotripsies. He was recently admitted here 2 mos ago after a fall and then slept outside, was found by his caregiver and brought to the emergency room with complaints of pain in his back after the fall. CT imaging showed no fractures or dislocations. He was found to have rhabdomyolysis with CK of 11,000 and ANGELO with a creatinine of 1.7 (his baseline creatinine is 1.0). He received many days of IV saline and improved. The patient was seen by older adult social work specialist who found that he is "unsteady at home because he does not remember to use his walker consistently". He lives in a trailer with his caregiver, who he calls his girlfriend. There was a safe discharge home, to where he was sent. An ambulance was called to the house today and the caregiver described to paramedics that he had 4 falls in the last 24 hours, and now was too weak to get up. EMS found him on the floor with pulse of 130, BP 163/71, room air saturation 95% and afebrile. He was brought to the ER. He underwent CT imaging of the brain and C-spine and no abnormalities were found. He complains of pain in the left shoulder and finds it difficult to make a L hand fist because of pain. EKG shows sinus tachycardia rate of 125 and early R/S progression (which was present on the EKG from 2 months ago). Today's labs show a BUN of 22, cre atinine 1.9, glucose 199, bilirubin 0.8, AST 155, ALT 58. CK 19,000 799, WBC 20.4. 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 Mother of "a broken heart". He has a brother and sister who are both healthy he thinks. Living Situation: With caregiver(s) Social History Notes: According to EMR, there is no smoking history and no alcohol use history - Substance History Use: Uses substance without health or social issues: NONE - POLST Patient has POLST: No Meds/Allgy - Home Medications Home Medications: Ambulatory Orders Medication Instructions Recorded Confirmed Blood Sugar Diagnostic [Glucometer 1 each QID #120 strip 04/24/20 02/15/23 Strips] Blood-Glucose Meter [Glucometer] 1 each ONCE #1 each 04/24/20 02/15/23 Lancets 1 each MC QID #120 each 04/24/20 02/15/23 metFORMIN [Glucophage] 1,000 mg PO BIDWM 08/29/20 02/15/23 Aspirin [Aspirin EC] 81 mg PO DAILY 12/20/22 02/15/23 Atorvastatin Calcium [Lipitor] 80 mg PO HS 12/20/22 02/15/23 DULoxetine [Cymbalta] 60 mg PO DAILY 12/20/22 02/15/23 Fluticasone [Flonase] 1 sprays CRISTIAN DAILY 12/20/22 02/15/23 Gabapentin [Neurontin] 600 mg PO TID 12/20/22 02/15/23 risperiDONE [Risperdal] 3 mg PO BID 12/20/22 02/15/23 Buprenorphine 1 each TD Q7D PRN 12/21/22 02/15/23 - Allergies Allergies/Adverse Reactions: Allergies Allergy/AdvReac Type Severity Reaction Status Date / Time diazepam [From Valium] Allergy Unknown Verified 12/20/22 12:36 Review of Systems - Constitutional Constitutional: reports: Fatigue - Musculoskeletal Musculoskeletal: reports: Back pain - All Other Systems All Other Systems: reports: Other (Patient appears lethargic and answers minimally, falls back asleep, so all sx are from HPI.) Exam - Vital Signs Vital Signs: Vital Signs x48h Temp Pulse Pulse Resp BP BP Pulse Ox 02/14/23 12:18 36.5 C 89 22 148/83 H 97 02/14/23 11:03 92 18 151/86 H 98 02/14/23 09:37 105 H 18 156/88 H 98 02/14/23 07:00 118 H 13 141/76 H 97 - Physical Exam General Appearance: positive: Lethargic, Other (Male pattern baldness, he appears older than his age. He has multiple bruises and excoriations of his face, hands, toes.) Eyes Bilateral: positive: Normal inspection ENT: positive: Dry mucous membranes Neck: positive: Nml inspection Respiratory: positive: No respiratory distress Cardiovascular: positive: Regular rate & rhythm Abdomen: positive: Non-tender, No distention Skin: positive: Warm, Dry, Other (Disheveled. Has multiple areas of bruises and excoriations on trunk and extremities.) Extremities: positive: No pedal edema, Other (Skin tears, abrasions, bruises) Conclusion/Plan - Problem List (1) Rhabdomyolysis Conclusion/Plan: Related to the multiple ground-level falls Plan: Will continue with IV NS hydration Follow CK daily Qualifiers: Rhabdomyolysis type: traumatic (2) ANGELO (acute kidney injury) Conclusion/Plan: He is visibly dehydrated clinically. This Angelo is likely from underlying volume depletion in addition to the rhabdo Plan: Avoid nephrotoxins Continue IV fluids Follow BMP daily (3) Abrasions of multiple sites Conclusion/Plan: As per imaging Plan: We will provide topical care where necessary We will also order medications for pain and resume his weekly Suboxone (4) Fall at home Conclusion/Plan: This may be from orthostasis since there is signs of dehydration. Also there is evidence that the patient needs to use a walker and keeps forgetting, which may lead to him having an unsteady gait causing the falls Plan: Will order x-ray imaging of the left shoulder to rule out fracture or dislocation, which was not imaged in ER. Give pain meds as needed Will check orthostatic vital signs This problem may lead to need for long-term care placement, since he has now had evidence of repeat falling at home and the caregiver is unable to prevent this (5) Buprenorphine dependence Conclusion/Plan: As per histor Plan: We will continue this and the dose he is been receiving (6) DM type 2 (diabetes mellitus, type 2) Conclusion/Plan: He is on metformin at home Plan: Will order diabetic diet We will not give metformin while he has ANGELO Will order fingerstick checks, sliding scale regular insulin coverage and hypoglycemia protocol (7) Abnormal EKG Conclusion/Plan: This patient has unremarkable EKG showing early R/S transition which could signify cor pulmonale. He had the same abnormal EKG findings 2 months ago on admission Plan: We will obtain an Echo to establish if he has cor pulmonale which may be adding to why he is having frequent falls (8) Schizophrenia Conclusion/Plan: Plan: We will continue with his usual psych medications, when the list is reconciled by pharmacy Patient may need psych evaluation. Will make older adult social work specialist aware. - Lab Results Fish Bones: 02/14/23 03:15 02/15/23 09:45 - Diagnostic Imaging Results Diagnostic Imaging Results: positive: Final report reviewed - Other Other Results/Comments: Attestation: The patient is expected to be discharged or transferred to another facility within 96 hours: Yes.
--- NOTE | 2023-02-14 16:13 | XRAY Report ---
PROCEDURE: Shoulder 2 View LT INDICATIONS: Pain L shoulder after falls at home TECHNIQUE: 2 views of the shoulder were acquired. COMPARISON: None. FINDINGS: Bones: No acute fractures or dislocations. No suspicious bony lesions. Visualized ribs appear inta ct. Moderate degenerative changes of the left acromioclavicular joint. Mild degenerative changes of the glenohumeral joint. Soft tissues: No suspicious soft tissue calcifications. Multiple surgical clips project over the le ft axilla. IMPRESSION: Left shoulder without acute fracture or dislocation. Moderate degenerative changes of th e left acromioclavicular joint. Reviewed by: Luis A Lynne MD on 02/14/2023 4:12 PM PDT Approved by: Luis A Lynne MD on 02/14/2023 4:12 PM PDT Station ID: [id number]
[2023-02-15] MEDS: SODIUM CHLORIDE FLUSH 0.9% 10 ML SYRINGE IVP SCH ×4 (01:28→23:20)
[2023-02-15] MEDS: SODIUM CHLORIDE 0.9% 1,000 ML IV SCH ×3 (04:33→20:30)
[2023-02-15] MEDS: INSULIN LISPRO 300 UNIT/3 ML PEN SUBQ SCH ×4 (08:52→20:29)
[2023-02-15 10:37] LABS: CALCIUM 8.8 mg/dL (8.5-10.3); CREATININE 2.1 mg/dL (0.6-1.2)
[2023-02-15 10:37] LABS: ESTIMATED AVERAGE GLUCOSE 134 mg/dL (70-100); HEMOGLOBIN A1c% 6.3 % (4.27-6.07)
[2023-02-15] MEDS ORDERED: RISPERIDONE 3 MG PO SCH (12:00)
[2023-02-15] MEDS ORDERED: DULoxetine 30 MG CAPSULE PO SCH (13:00)
[2023-02-15] MEDS: DULoxetine 30 MG CAPSULE PO SCH (13:37)
--- NOTE | 2023-02-15 13:39 | PHARMACY PROGRESS NOTE ---
- Best Possible Medication History Admit Date and Time: 02/14/23 1126 Processed by: Pharmacy Medication History completed: Yes Patient Interview: Pt unable to participate Secondary Source(s): Spouse/Significant other (Reconciled meds using insurance records and previous admission (2 months ago), at which time, I spoke with caregiver (GF?) who confirmed meds and said pt uses burprenorphine batch only when needed, which is approximately 2 patches per month. I could not get a hold of her this time. RN also stated ) As the person ultimately responsible for medication therapy, providers are able to order a medication from an existing home medication list in [facility] via the "Reconcile Routine" prior to Confirmation of that medication by data support analyst. Such practice is discouraged except when the physician, in their clinical judgment, deems that a medical need exists for a medication without regard to previous use.
--- NOTE | 2023-02-15 19:12 | PROVIDER PROGRESS NOTE ---
Assessment/Plan - Problem List (1) Rhabdomyolysis Qualifiers: Rhabdomyolysis type: traumatic Assessment/Plan: Related to the multiple ground-level falls Labs were all reviewed: His CK has decreased from 19,000 to 5000, after starting iv hydration Plan: Will continue with IV NS hydration Follow CK daily Qualifiers: Rhabdomyolysis type: traumatic (2) ANGELO (acute kidney injury) Conclusion/Plan: He is still visibly dehydrated clinically. Labs were all reviewed. His BUN/creat have worsened from 22/1.9 at admission to 26/2.1 to day, despite iv fluids started. His baseline creat is 1.1 (records were reviewed). This Angelo is likely from underlying volume depletion in addition to the rhabdo Plan: Avoid nephrotoxins Continue IV fluids Follow BMP daily (3) Abrasions of multiple sites Conclusion/Plan: As per photos taken by nursing Plan: We will provide topical care where necessary We will also order medications for pain and resume his weekly Suboxone (4) Fall at home Conclusion/Plan: His C-spine and head were cleared with CT imaging. He then complained of left shoulder pain after arriving to his room. Left shoulder images were done that showed no fracture or dislocation The falls may be from orthostasis since there is signs of dehydration on labs. Also there is Hx that the patient needs to use a walker and keeps forgetting, which may lead to him having an unsteady gait causing the falls. I tried to reach his caregiver and DPOA, Mer, but she did not pick up worker the phone, I left a message and asked her to call me back. Plan: Give pain meds as needed Cont to check orthostatic vital signs This problem of recurrent falls may lead to a need for long-term care placement, since he has now has Hx of repeat falls at home (before the last admission, 2 mos ago, he fell outside when he was not supervised, this admission there were 3 falls, unknown if they were in the house or outside and where Mer was then). Since the caregiver is not home all the time, I suspect he will now need 24/7 care. In order to determine if the patient can make his own decisions about a discharge plan, I tried speaking to him about this topic today and he just stared at me, had no responses. Patient may need psych evaluation. Will make long term care social worker aware. Will try to get details from his caregiver, Mer. (5) Buprenorphine dependence Conclusion/Plan: As per history Plan: We will continue this at the dose he is been receiving (6) DM type 2 (diabetes mellitus, type 2) Conclusion/Plan: He is on metformin at home Plan: Will order diabetic diet We will not give metformin while he has ANGELO Will order fingerstick checks, sliding scale regular insulin coverage and hypoglycemia protocol (7) Abnormal EKG Conclusion/Plan: This patient has a remarkable EKG showing early R/S transition which could s ignify cor pulmonale. He had the same abnormal EKG findings 2 months ago on admission An Echo was done to check if he has cor pulmonale, and it showed (8) Schizophrenia Conclusion/Plan: At admission yesterday the patient was lethargic, possibly from getting pain meds. Today the patient just stares at me after I ask him a question, then softly mumbles an answer to 2 questions ago. OT and RN have told me that he does the same thing with them and he does not participate in any discussions. He does keep asking when his caregiver girlfriend will visit. Plan: We will continue with his usual psych medications, when the list is reconciled by pharmacy Patient may need psych evaluation. Will make long term care social worker aware. This problem of recurrent falls may lead to a need for long-term care placement, since he has now has Hx of repeat falls at home (before the last admission, 2 mos ago, he fell outside when he was not supervised, this admission there were 3 falls, unknown if they were in the house or outside and where Mer was then). Since the caregiver is not home all the time, I suspect he will now need 24/ care. In order to determine if the patient can make his own decisions about a discharge plan, I tried speaking to him about this topic today and he just stared at me, had no responses. Patient may need psych evaluation. Will make long term care social worker aware. Will try to get details from his caregiver, Mer. - Current Meds Current Meds: Current Medications Generic Name Dose Route Start Last Admin Trade Name Freq PRN Reason Stop Dose Admin Duloxetine HCl 30 mg 02/15/23 13:30 02/15/23 13:37 Duloxetine 30 Mg Capsule PO 30 mg DAILY ANGELA Administration Sodium Chloride 1,000 mls @ 125 mls/hr 02/14/23 12:00 02/15/23 12:41 Normal Saline 0.9% IV 125 mls/hr .Q8H ANGELA Administration Insulin Human Lispro 1 - 5 unit 02/14/23 12:00 02/15/23 16:58 Insulin Lispro 300 Unit/3 Ml Pen SUBQ 1 unit 0800,1200,1700,2100 ANGELA Administration Protocol Sodium Chloride 10 ml 02/14/23 17:00 02/15/23 16:59 Sodium Chloride Flush 0.9% 10 Ml Syringe IVP 10 ml 0100,0900,1700 [facility] Administration - Lab Result Fish Bone Diagrams: 02/16/23 04:52 02/16/23 04:52 - Additional Planning My Orders: My Active Orders 02/15/23 Evaluate and Treat OT [OT] Routine Evaluate and Treat PT [PT] Routine 02/15/23 13:30 DULoxetine [Cymbalta] 30 mg PO DAILY 02/15/23 21:00 risperiDONE [RisperDAL] 1.5 mg PO BID 02/16/23 05:00 BMP - BASIC METABOLIC PANEL [CHEM] DAILYLAB CBC - COMP BLD CT W/AUTO DIFF [HEME] DAILYLAB CK- CREATINE KINASE [CHEM] DAILYLAB MAGNESIUM [CHEM] DAILYLAB 02/17/23 05:00 CK- CREATINE KINASE [CHEM] DAILYLAB 02/18/23 05:00 CK- CREATINE KINASE [CHEM] DAILYLAB Subjective - Subjective Patient Reports: Other (He does not answer, has a flat affect, just stares at the person that is talking to him.) Objective Vital Signs: Vital Signs - 24 hr 02/15/23 02/15/23 02/15/23 00:09 08:00 16:00 Temperature 36.9 C 36.9 C 36.7 C Heart Rate [ 87 94 74 Brachial] Respiratory 16 20 18 Rate Blood Pressure 162/76 H 173/88 H 151/82 H [Right Brachial artery] O2 Saturation 96 94 Oxygen O2 Source Room air I&O (Last 24 Hrs): Intake and Output Totals x24h 02/13/23 02/14/23 02/15/23 23:59 23:59 23:59 Intake Total 4820 2670 Output Total 1100 2300 Balance 3720 370 General: Alert HEENT: Other (Multiple abrasions on his forehead) Neck: Supple, No JVD Neuro: Alert (Awake but not interactive, flat affect.) Cardiovascular: Regular rate Respiratory: No respiratory distress Abdomen: Soft Extremities: No clubbing, Other (Multiple bruises, excoriations and skin tears) - Results Results: Laboratory Results WBC 20.4 x10^3/uL (4.8-10.8) H 02/14/23 03:15 RBC 4.80 10^6/uL (4.70-6.10) 02/14/23 03:15 Hgb 14.5 g/dL (14.0-18.0) 02/14/23 03:15 Hct 42.8 % (42.0-52.0) 02/14/23 03:15 MCV 89.2 fL (80.0-94.0) 02/14/23 03:15 MCH 30.2 pg (27.0-31.0) 02/14/23 03:15 MCHC 33.9 g/dL (32.0-36.0) 02/14/23 03:15 RDW 13.0 % (12.0-15.0) 02/14/23 03:15 Plt Count 298 10^3/uL (130-450) 02/14/23 03:15 MPV 9.2 fL (7.4-11.4) 02/14/23 03:15 Neut # (Auto) Not Reportable 02/14/23 03:15 Lymph # (Auto) Not Reportable 02/14/23 03:15 [place] # (Auto) Not Reportable 02/14/23 03:15 Eos # (Auto) Not Reportable 02/14/23 03:15 Baso # (Auto) Not Reportable 02/14/23 03:15 Absolute Nucleated RBC Not Reportable 02/14/23 03:15 Total Counted 100 02/14/23 03:15 Band Neuts % (Manual) 9 % (0-10) 02/14/23 03:15 Abnorm Lymph % (Manual) 0 % 02/14/23 03:15 Nucleated RBC % Not Reportable 02/14/23 03:15 Neutrophils # (Manual) 18.2 10^3/uL (1.5-6.6) H 02/14/23 03:15 Lymphocytes # (Manual) 1.0 10^3/uL (1.5-3.5) L 02/14/23 03:15 Monocytes # (Manual) 1.2 10^3/uL (0.0-1.0) H 02/14/23 03:15 Eosinophils # (Manual) 0.0 10^3/uL (0-0.7) 02/14/23 03:15 Basophils # (Manual) 0.0 10^3/uL (0-0.1) 02/14/23 03:15 Differential Comment MANUAL DIFFERENTIAL 02/14/23 03:15 Sodium 141 mmol/L (135-145) 02/15/23 09:45 Potassium 4.0 mmol/L (3.5-5.0) 02/15/23 09:45 Chloride 110 mmol/L (101-111) 02/15/23 09:45 Carbon Dioxide 21 mmol/L (21-32) 02/15/23 09:45 Anion Gap 10.0 (6-13) 02/15/23 09:45 BUN 26 mg/dL (6-20) H 02/15/23 09:45 Creatinine 2.1 mg/dL (0.6-1.2) H 02/15/23 09:45 Estimated GFR (MDRD) 33 (>89) L 02/15/23 09:45 Glucose 230 mg/dL (70-100) H 02/15/23 09:45 Estimat Average Glucose 134 mg/dL (70-100) H 02/15/23 05:20 Hemoglobin A1c % 6.3 % (4.27-6.07) H 02/15/23 05:20 Calcium 8.8 mg/dL (8.5-10.3) 02/15/23 09:45 Total Bilirubin 0.8 mg/dL (0.2-1.0) 02/14/23 03:15 AST 155 IU/L (10-42) H 02/14/23 03:15 ALT 58 IU/L (10-60) 02/14/23 03:15 Alkaline Phosphatase 107 IU/L (42-121) 02/14/23 03:15 Total Creatine Kinase 5207 IU/L (22-269) H* 02/15/23 09:45 CK-MB (CK-2) 265.9 ng/mL (0.6-6.3) H 02/14/23 03:15 Total Protein 8.3 g/dL (6.7-8.2) H 02/14/23 03:15 Albumin 4.2 g/dL (3.2-5.5) 02/14/23 03:15 Globulin 4.1 g/dL (2.1-4.2) 02/14/23 03:15 Albumin/Globulin Ratio 1.0 (1.0-2.2) 02/14/23 03:15 Lipase 34 U/L (22-51) 02/14/23 03:15 TSH 1.21 uIU/mL (0.34-5.60) 02/14/23 03:15 Urine Color BROWN 02/14/23 10:34 Urine Clarity CLEAR (CLEAR) 02/14/23 10:34 Urine pH 6.0 PH (5.0-7.5) 02/14/23 10:34 Ur Specific [place] 1.025 (1.002-1.030) 02/14/23 10:34 Urine Protein 100 mg/dL (NEGATIVE) H 02/14/23 10:34 Urine Glucose (UA) NEGATIVE mg/dL (NEGATIVE) 02/14/23 10:34 Urine Ketones NEGATIVE mg/dL (NEGATIVE) 02/14/23 10:34 Urine Occult Blood LARGE (NEGATIVE) H 02/14/23 10:34 Urine Nitrite NEGATIVE (NEGATIVE) 02/14/23 10:34 Urine Bilirubin NEGATIVE (NEGATIVE) 02/14/23 10:34 Urine Urobilinogen 0.2 (NORMAL) E.U./dL (NORMAL) 02/14/23 10:34 Ur Leukocyte Esterase NEGATIVE (NEGATIVE) 02/14/23 10:34 Urine RBC 11-25 /HPF (0-5) H 02/14/23 10:34 Urine WBC 0-3 /HPF (0-3) 02/14/23 10:34 Ur Squamous Epith Cells NONE SEEN (<= Few) 02/14/23 10:34 Urine Bacteria Few /HPF (None Seen) 02/14/23 10:34 Ur Microscopic Review INDICATED 02/14/23 10:34 Urine Culture Comments NOT INDICATED 02/14/23 10:34 Urine Opiates Screen NEGATIVE (NEGATIVE) 02/14/23 10:34 Ur Oxycodone Screen NEGATIVE (NEGATIVE) 02/14/23 10:34 Urine Methadone Screen NEGATIVE (NEGATIVE) 02/14/23 10:34 Ur Propoxyphene Screen NEGATIVE (NEGATIVE) 02/14/23 10:34 Ur Barbiturates Screen NEGATIVE (NEGATIVE) 02/14/23 10:34 Ur Tricyclics Screen NEGATIVE (NEGATIVE) 02/14/23 10:34 Ur Phencyclidine Scrn NEGATIVE (NEGATIVE) 02/14/23 10:34 Ur Amphetamine Screen NEGATIVE (NEGATIVE) 02/14/23 10:34 U Methamphetamines Scrn NEGATIVE (NEGATIVE) 02/14/23 10:34 U Benzodiazepines Scrn NEGATIVE (NEGATIVE) 02/14/23 10:34 Urine Cocaine Screen NEGATIVE (NEGATIVE) 02/14/23 10:34 U Cannabinoids Screen POSITIVE (NEGATIVE) H 02/14/23 10:34 Ethyl Alcohol < 5.0 mg/dL 02/14/23 03:15
[2023-02-15] MEDS: risperiDONE 1 MG TABLET PO SCH (20:24)
[2023-02-15] MEDS ORDERED: BISACODYL 10 MG SUPP PR ONE (23:42)
[2023-02-16] MEDS: ACETAMINOPHEN 325 MG TABLET PO PRN (00:16)
[2023-02-16] MEDS: SODIUM CHLORIDE 0.9% 1,000 ML IV SCH ×3 (04:23→20:12)
[2023-02-16 05:06] LABS: BASOPHILS % (AUTO) 0.4 %; EOSINOPHILS # (AUTO) 0.2 10^3/uL (0.0-0.7); HCT - HEMATOCRIT 32.4 % (42.0-52.0); HGB - HEMOGLOBIN 10.8 g/dL (14.0-18.0); LYMPHOCYTES # (AUTO) 1.9 10^3/uL (1.5-3.5); LYMPHOCYTES % (AUTO) 25.2 %; MEAN CORPUSCULAR HEMOGLOBIN 29.9 pg (27.0-31.0); MEAN CORPUSCULAR HGB CONC 33.3 g/dL (32.0-36.0); MEAN CORPUSCULAR VOLUME 89.8 fL (80.0-94.0); MEAN PLATELET VOLUME 9.1 fL (7.4-11.4); MONOCYTES # (AUTO) 0.5 10^3/uL (0.0-1.0); MONOCYTES % (AUTO) 7.2 %; NEUTROPHILS # (AUTO) 4.8 10^3/uL (1.5-6.6); NEUTROPHILS % (AUTO) 64.9 %; PLT - PLATELET COUNT 208 10^3/uL (130-450); RED BLOOD COUNT 3.61 10^6/uL (4.70-6.10); RED CELL DISTRIBUTION WIDTH 13.1 % (12.0-15.0); WHITE BLOOD COUNT 7.4 x10^3/uL (4.8-10.8)
[2023-02-16 06:25] LABS: CALCIUM 8.7 mg/dL (8.5-10.3); CREATININE 1.7 mg/dL (0.6-1.2); MAGNESIUM 1.5 mg/dL (1.7-2.8); POTASSIUM 3.7 mmol/L (3.5-5.0)
--- NOTE | 2023-02-16 08:46 | PROVIDER PROGRESS NOTE ---
Assessment/Plan - Problem List (1) Rhabdomyolysis Qualifiers: Rhabdomyolysis type: traumatic Assessment/Plan: Related to the trauma of multiple ground-level falls and laying on the ground for unknown amount of time. Labs were all reviewed. His CK has worsened: from 19,000 to 5000 to 19,000 again today. There has been no trauma here. Plan: Will continue with IV NS hydration Follow CK daily Qualifiers: Rhabdomyolysis type: traumatic (2) ANGELO (acute kidney injury) Conclusion/Plan: He is still visibly dehydrated clinically. Labs were all reviewed. His BUN/creat have improved from 22/1.9 at admission to 26/2.1 to 22/1.7 today, since iv fluids started. His baseline creat is 1.1 (records were reviewed). This Angelo is likely from underlying volume depletion in addition to the rhabdo Plan: Avoid nephrotoxins Continue IV fluids Follow BMP daily (3) Abrasions of multiple sites Conclusion/Plan: As per photos taken by nursing Plan: We will provide topical care where necessary We will also order medications for pain and resume his weekly Suboxone (4) Fall at home Conclusion/Plan: His C-spine and head were cleared with CT imaging. He then complained of left shoulder pain and shoulder images were done that showed no fracture or dislocation He is not orthostatic There is Hx that the patient needs to use a walker and keeps forgetting, which may lead to him having an unsteady gait causing the falls. Today I spoke to his DPOA and caregiver, Mer. EMS wrote that the patient had fallen 3 times in 24 hours, Mer corrected this and said he fell 3 times in 30 minutes; she came home and found him on the floor unable to get up because his head was stuck under the foot of his bed. She had to raise the bed to get him out, she sat him up on his bed and he fell forward onto the floor. She then got him up again and sat him on the bed and he fell forward once more. This is when she called EMS. Plan: Give pain meds as needed Will stop orthostatic vital sign checks This problem of recurrent falls will likely lead to a need for long-term care placement, since he now has Hx of repeat falls at home (with his last admission, which was just 2 mos ago, he fell outside when he was not supervised, and this a dmission the initial fall was when he was unsupervised). Due to his poor judgement, and since the caregiver is not home all the time, he will now need 24/7 care. When I spoke to Mer today, she said she has already been trying to get him permanent placement, and that his chief knowledge officer and her are working on permanent placemant for him. Will make social organization professor aware. (5) Buprenorphine dependence Conclusion/Plan: As per history, this is for chronic back pain. I am concerned that this is over sedating him and adding to the falls Plan: We will continue this at his usual dose (8) Schizophrenia Conclusion/Plan: Since admission, the patient just stares at me and other staff after being asked a question, and occaisionally softly mumbles an answer, to what was aked 2 questions ago. OT and RN have told me that he does the same thing with them and he does not participate in any discussions. He does keep asking when Mer will visit. Today I spoke to his DPOA and caregiver, Mer. She said that he has worsened since 2010, goes to a psychiatrist, has had his psychiatric meds adjusted and we do have the current proper medication list. Mer told me today that when he stares at you. "it is because the people that are in his body do not like what they are hearing". Therefore, when he is staring, his symptoms are not under control. 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 Plan: We will continue with his current psych medications Patient may need psych evaluation. Mer reiterated that the patient can no longer make decisions for himself, and she has to remind him and cue him multiple times to do something. She is the DPOA and is now trying to get him permanent placement. Will make social organization professor aware. (6) DM type 2 (diabetes mellitus, type 2) Conclusion/Plan: He is on metformin at home. His A1c came back very good at 6.3. Plan: Continue diabetic diet We will not yet resume metformin while he has ANGELO Cont fingerstick checks, sliding scale regular insulin coverage and hypoglycemia protocol (7) Abnormal EKG Conclusion/Plan: This patient has a remarkable EKG showing early R/S transition which could signify cor pulmonale. He had the same abnormal EKG findings 2 months ago on admission An Echo was done to check if he has cor pulmonale, and it showed: an essentially normal heart, with normal LV size and systolic function but grade 1 diastolic function present and normal RV size and function were seen (8) Poor hygiene One of the examples Mer described to me was that she needs to wipe his gilliam after he eats because he is so messy. He is less able to feed himself since just this year. His eyelashes have crusted debris. Unknown period of time that he was laying on the floor with his head under the bed, until cat found him that way and needed to lift him. Plan: We will order a shower We will order gentamicin eyedrops - Current Meds Current Meds: Current Medications Generic Name Dose Route Start Last Admin Trade Name Freq PRN Reason Stop Dose Admin Acetaminophen 650 mg 02/15/23 19:57 02/16/23 00:16 Acetaminophen 325 Mg Tablet PO 650 mg Q4HR PRN Administration Pain or Fever > 38C (100.4F) Duloxetine HCl 30 mg 02/15/23 13:30 02/15/23 13:37 Duloxetine 30 Mg Capsule PO 30 mg DAILY ANGELA Administration Sodium Chloride 1,000 mls @ 125 mls/hr 02/14/23 12:00 02/16/23 04:23 Normal Saline 0.9% IV 125 mls/hr .Q8H ANGELA Administration Insulin Human Lispro 1 - 5 unit 02/14/23 12:00 02/15/23 20:29 Insulin Lispro 300 Unit/3 Ml Pen SUBQ 1 unit 0800,1200,1700,2100 ANGELA Administration Protocol Risperidone 1.5 mg 02/15/23 21:00 02/15/23 20:24 Risperidone 1 Mg Tablet PO 1.5 mg BID ANGELA Administration Sodium Chloride 10 ml 02/14/23 17:00 02/15/23 23:20 Sodium Chloride Flush 0.9% 10 Ml Syringe IVP Not Given 0100,0900,1700 ANGELA - Lab Result Fish Bone Diagrams: 02/16/23 04:52 02/16/23 04:52 - Additional Planning My Orders: My Active Orders 02/15/23 13:30 DULoxetine [Cymbalta] 30 mg PO DAILY 02/15/23 19:57 Acetaminophen [Tylenol] 650 mg PO Q4HR PRN Ibuprofen [Motrin] 600 mg PO Q6HR PRN 02/15/23 21:00 risperiDONE [RisperDAL] 1.5 mg PO BID 02/16/23 08:00 Magnesium Oxide [Mag Ox] 400 mg PO DAILYWM 02/17/23 05:00 BMP - BASIC METABOLIC PANEL [CHEM] DAILYLAB CK- CREATINE KINASE [CHEM] DAILYLAB MAGNESIUM [CHEM] DAILYLAB 02/18/23 05:00 BMP - BASIC METABOLIC PANEL [CHEM] DAILYLAB CK- CREATINE KINASE [CHEM] DAILYLAB 02/19/23 05:00 BMP - BASIC METABOLIC PANEL [CHEM] DAILYLAB 02/20/23 05:00 BMP - BASIC METABOLIC PANEL [CHEM] DAILYLAB Subjective - Subjective Patient Reports: Resting Comfortably (Nonverbal when spoken to) Objective Vital Signs: Vital Signs - 24 hr 02/15/23 02/15/23 02/16/23 16:00 23:34 08:00 Temperature 36.7 C 36.6 C 36.8 C Heart Rate [ 74 72 69 Brachial] Respiratory 18 16 18 Rate Blood Pressure 151/82 H 147/70 H 145/75 H [Right Brachial artery] O2 Saturation 97 98 Oxygen O2 Source Room air I&O (Last 24 Hrs): Intake and Output Totals x24h 02/14/23 02/15/23 02/16/23 23:59 23:59 23:59 Intake Total 4820 3647 1735.417 Output Total 1100 3000 Balance 3720 647 1735.417 General: Alert, Other (Disheveled, oily skin, male pattern baldness) HEENT: Other (Multiple abrasions and skin tears and bruises of forehead. Dry oral mucosa. Yellow crusty dried eyelashes) Neck: Supple, No JVD Neuro: Alert, Other (Mostly catatonic when spoken to) Cardiovascular: Regular rate Respiratory: No respiratory distress Abdomen: No tenderness Extremities: No clubbing, No edema, Other (Multiple abrasions, skin tears, bruises on trunk and extremities, blood around toenails of first 2 toes on left foot) - Results Results: Laboratory Results WBC 7.4 x10^3/uL (4.8-10.8) 02/16/23 04:52 RBC 3.61 10^6/uL (4.70-6.10) L 02/16/23 04:52 Hgb 10.8 g/dL (14.0-18.0) L 02/16/23 04:52 Hct 32.4 % (42.0-52.0) L 02/16/23 04:52 MCV 89.8 fL (80.0-94.0) 02/16/23 04:52 MCH 29.9 pg (27.0-31.0) 02/16/23 04:52 MCHC 33.3 g/dL (32.0-36.0) 02/16/23 04:52 RDW 13.1 % (12.0-15.0) 02/16/23 04:52 Plt Count 208 10^3/uL (130-450) 02/16/23 04:52 MPV 9.1 fL (7.4-11.4) 02/16/23 04:52 Neut # (Auto) 4.8 10^3/uL (1.5-6.6) 02/16/23 04:52 Lymph # (Auto) 1.9 10^3/uL (1.5-3.5) 02/16/23 04:52 [place] # (Auto) 0.5 10^3/uL (0.0-1.0) 02/16/23 04:52 Eos # (Auto) 0.2 10^3/uL (0.0-0.7) 02/16/23 04:52 Baso # (Auto) 0.0 10^3/uL (0.0-0.1) 02/16/23 04:52 Absolute Nucleated RBC 0.00 x10^3/uL 02/16/23 04:52 Total Counted 100 02/14/23 03:15 Band Neuts % (Manual) 9 % (0-10) 02/14/23 03:15 Abnorm Lymph % (Manual) 0 % 02/14/23 03:15 Nucleated RBC % 0.0 /100WBC 02/16/23 04:52 Neutrophils # (Manual) 18.2 10^3/uL (1.5-6.6) H 02/14/23 03:15 Lymphocytes # (Manual) 1.0 10^3/uL (1.5-3.5) L 02/14/23 03:15 Monocytes # (Manual) 1.2 10^3/uL (0.0-1.0) H 02/14/23 03:15 Eosinophils # (Manual) 0.0 10^3/uL (0-0.7) 02/14/23 03:15 Basophils # (Manual) 0.0 10^3/uL (0-0.1) 02/14/23 03:15 Differential Comment MANUAL DIFFERENTIAL 02/14/23 03:15 Sodium 139 mmol/L (135-145) 02/16/23 04:52 Potassium 3.7 mmol/L (3.5-5.0) 02/16/23 04:52 Chloride 109 mmol/L (101-111) 02/16/23 04:52 Carbon Dioxide 20 mmol/L (21-32) L 02/16/23 04:52 Anion Gap 10.0 (6-13) 02/16/23 04:52 BUN 22 mg/dL (6-20) H 02/16/23 04:52 Creatinine 1.7 mg/dL (0.6-1.2) H 02/16/23 04:52 Estimated GFR (MDRD) 42 (>89) L 02/16/23 04:52 Glucose 133 mg/dL (70-100) H 02/16/23 04:52 Estimat Average Glucose 134 mg/dL (70-100) H 02/15/23 05:20 Hemoglobin A1c % 6.3 % (4.27-6.07) H 02/15/23 05:20 Calcium 8.7 mg/dL (8.5-10.3) 02/16/23 04:52 Magnesium 1.5 mg/dL (1.7-2.8) L 02/16/23 04:52 Total Bilirubin 0.8 mg/dL (0.2-1.0) 02/14/23 03:15 AST 155 IU/L (10-42) H 02/14/23 03:15 ALT 58 IU/L (10-60) 02/14/23 03:15 Alkaline Phosphatase 107 IU/L (42-121) 02/14/23 03:15 Total Creatine Kinase 61750 IU/L (22-269) H* 02/16/23 04:52 CK-MB (CK-2) 265.9 ng/mL (0.6-6.3) H 02/14/23 03:15 Total Protein 8.3 g/dL (6.7-8.2) H 02/14/23 03:15 Albumin 4.2 g/dL (3.2-5.5) 02/14/23 03:15 Globulin 4.1 g/dL (2.1-4.2) 02/14/23 03:15 Albumin/Globulin Ratio 1.0 (1.0-2.2) 02/14/23 03:15 Lipase 34 U/L (22-51) 02/14/23 03:15 TSH 1.21 uIU/mL (0.34-5.60) 02/14/23 03:15 Urine Color BROWN 02/14/23 10:34 Urine Clarity CLEAR (CLEAR) 02/14/23 10:34 Urine pH 6.0 PH (5.0-7.5) 02/14/23 10:34 Ur Specific [place] 1.025 (1.002-1.030) 02/14/23 10:34 Urine Protein 100 mg/dL (NEGATIVE) H 02/14/23 10:34 Urine Glucose (UA) NEGATIVE mg/dL (NEGATIVE) 02/14/23 10:34 Urine Ketones NEGATIVE mg/dL (NEGATIVE) 02/14/23 10:34 Urine Occult Blood LARGE (NEGATIVE) H 02/14/23 10:34 Urine Nitrite NEGATIVE (NEGATIVE) 02/14/23 10:34 Urine Bilirubin NEGATIVE (NEGATIVE) 02/14/23 10:34 Urine Urobilinogen 0.2 (NORMAL) E.U./dL (NORMAL) 02/14/23 10:34 Ur Leukocyte Esterase NEGATIVE (NEGATIVE) 02/14/23 10:34 Urine RBC 11-25 /HPF (0-5) H 02/14/23 10:34 Urine WBC 0-3 /HPF (0-3) 02/14/23 10:34 Ur Squamous Epith Cells NONE SEEN (<= Few) 02/14/23 10:34 Urine Bacteria Few /HPF (None Seen) 02/14/23 10:34 Ur Microscopic Review INDICATED 02/14/23 10:34 Urine Culture Comments NOT INDICATED 02/14/23 10:34 Urine Opiates Screen NEGATIVE (NEGATIVE) 02/14/23 10:34 Ur Oxycodone Screen NEGATIVE (NEGATIVE) 02/14/23 10:34 Urine Methadone Screen NEGATIVE (NEGATIVE) 02/14/23 10:34 Ur Propoxyphene Screen NEGATIVE (NEGATIVE) 02/14/23 10:34 Ur Barbiturates Screen NEGATIVE (NEGATIVE) 02/14/23 10:34 Ur Tricyclics Screen NEGATIVE (NEGATIVE) 02/14/23 10:34 Ur Phencyclidine Scrn NEGATIVE (NEGATIVE) 02/14/23 10:34 Ur Amphetamine Screen NEGATIVE (NEGATIVE) 02/14/23 10:34 U Methamphetamines Scrn NEGATIVE (NEGATIVE) 02/14/23 10:34 U Benzodiazepines Scrn NEGATIVE (NEGATIVE) 02/14/23 10:34 Urine Cocaine Screen NEGATIVE (NEGATIVE) 02/14/23 10:34 U Cannabinoids Screen POSITIVE (NEGATIVE) H 02/14/23 10:34 Ethyl Alcohol < 5.0 mg/dL 02/14/23 03:15
[2023-02-16] MEDS: DULoxetine 30 MG CAPSULE PO SCH (09:21)
[2023-02-16] MEDS: INSULIN LISPRO 300 UNIT/3 ML PEN SUBQ SCH ×4 (09:21→21:22)
[2023-02-16] MEDS: risperiDONE 1 MG TABLET PO SCH ×2 (09:21→21:23)
[2023-02-16] MEDS: SODIUM CHLORIDE FLUSH 0.9% 10 ML SYRINGE IVP SCH ×3 (09:22→23:37)
[2023-02-16] MEDS: MAGNESIUM OXIDE 400 MG TABLET PO SCH (09:22)
[2023-02-16] MEDS ORDERED: BUPRENORPHINE 15 MCG/HR TOP PRN (14:37)
[2023-02-16] MEDS: GENTAMICIN 0.3% OPHTH DROPS EACHEYE SCH (21:22)
[2023-02-16] MEDS: GABAPENTIN 300 MG CAPSULE PO SCH (21:23)
[2023-02-17] MEDS: SODIUM CHLORIDE 0.9% 1,000 ML IV SCH ×3 (04:11→19:52)
[2023-02-17] MEDS: GABAPENTIN 300 MG CAPSULE PO SCH (05:45)
[2023-02-17 06:18] LABS: CALCIUM 8.7 mg/dL (8.5-10.3); CREATININE 1.6 mg/dL (0.6-1.2); MAGNESIUM 1.5 mg/dL (1.7-2.8)
[2023-02-17] MEDS: INSULIN LISPRO 300 UNIT/3 ML PEN SUBQ SCH ×4 (10:46→21:41)
[2023-02-17] MEDS: risperiDONE 1 MG TABLET PO SCH (10:47)
[2023-02-17] MEDS: SODIUM CHLORIDE FLUSH 0.9% 10 ML SYRINGE IVP SCH ×2 (10:48→19:52)
[2023-02-17] MEDS: GENTAMICIN 0.3% OPHTH DROPS EACHEYE SCH ×2 (11:09→19:52)
[2023-02-17] MEDS: MAGNESIUM OXIDE 400 MG TABLET PO SCH (14:23)
[2023-02-17] MEDS: DULoxetine 30 MG CAPSULE PO SCH (14:23)
[2023-02-17] MEDS: FLUTICASONE NASAL SPRAY NAS SCH (14:24)
[2023-02-17] MEDS: ACETAMINOPHEN 325 MG TABLET PO PRN (14:29)
--- NOTE | 2023-02-17 17:00 | PROVIDER PROGRESS NOTE ---
Assessment/Plan - Problem List (1) Rhabdomyolysis Qualifiers: Rhabdomyolysis type: traumatic Assessment/Plan: Related to the trauma of multiple ground-level falls and laying on the ground for unknown amount of time. Labs were all reviewed. His CK has worsened: from 19,000 to 5000 to 19,000 again today. There has been no trauma here. Plan: Will continue with IV NS hydration Follow CK daily Qualifiers: Rhabdomyolysis type: traumatic (2) Catatonia Conclusion/Plan: Since admission, the patient just stares at me and other staff after being asked a question, and occasionally softly mumbles an answer, to what was aked 2 questions ago. OT and RN have told me that he does the same thing with them and he does not participate in any discussions. He does keep asking when Mer will visit Mer told me by phone yesterday 02/16 that he has worsened since 2010, goes to a psychiatrist, has had his psychiatric meds adjusted and we do have the current proper medication list. Mer said that when he stares at you. "it is because the people that are in his body do not like what they are hearing". Therefore, when he is staring, his symptoms are not under control. Mer said this is his catatonia. Mer said that the patient can no longer make decisions for himself, and she has to remind him and cue him multiple times to do something. She is working with the pt's daughter Christina, and the patient's pillowcase cutter trying to get him permanent placement. Plan: We will continue with his current psych medications Patient may need psych evaluation. Today I spoke to his caregiver, Mer in the room at his bedside and updated her. (3) Schizophrenia As in #2 (4) MILTON (acute kidney injury) Conclusion/Plan: He is still visibly dehydrated clinically. Labs were all reviewed. His BUN/creat have improved from admission, since iv fluids started. His baseline creat is 1.1 (records were reviewed). This [place] is likely from underlying volume depletion in addition to the rhabdo Plan: Avoid nephrotoxins Continue IV fluids Follow BMP daily (5) Abrasions of multiple sites Conclusion/Plan: As per photos taken by nursing Plan: We will provide topical care where necessary We will also order medications for pain and resume his weekly Suboxone (6) Fall at home Conclusion/Plan: His C-spine and head were cleared with CT imaging. He then complained of left shoulder pain and shoulder images were done that showed no fracture or disl ocation He is not orthostatic There is Hx that the patient needs to use a walker and keeps forgetting, which may lead to him having an unsteady gait causing the falls. I spoke to his caregiver, Mer. EMS wrote that the patient had fallen 3 times in 24 hours, Mer corrected this and said he fell 3 times in 30 minutes; she came home and found him on the floor unable to get up because his head was stuck under the foot of his bed. She had to raise the bed to get him out, she sat him up on his bed and he fell forward onto the floor. She then got him up again and sat him on the bed and he fell forward once more. This is when she called EMS. Plan: Give pain meds as needed Will stop orthostatic vital sign checks This problem of recurrent falls will likely lead to a need for long-term care placement, since he now has Hx of repeat falls at home (with his last admission, which was just 2 mos ago, he fell outside when he was not supervised, and this admission the initial fall was when he was unsupervised). Due to his poor judgement, and since the caregiver is not home all the time, he will now need 24/7 care. When I spoke to Mer today, she said she has already been trying to get him permanent placement, and that his cigarette examiner and her are working on permanent placement for him. Will make dialysis social worker aware. (7) Buprenorphine dependence Conclusion/Plan: As per history, this is for chronic back pain. I am concerned that this may be over sedating him and adding to the falls. In addition, pharmacy is unable to confirm his proper dosing by calling his pharmacy Plan: We will continue his usual dose when it is confirmed. (8) DM type 2 (diabetes mellitus, type 2) Conclusion/Plan: He is on metformin at home. His A1c came back very good at 6.3. Plan: Continue diabetic diet We will not yet resume metformin while he has MILTON Cont fingerstick checks, sliding scale regular insulin coverage and hypoglycemia protocol (9) Poor hygiene One of the examples Mer described to me was that she needs to wipe his gilliam after he eats because he is so messy. He is less able to feed himself over just this year. His eyelashes have crusted debris. Unknown period of time that he was laying on the floor with his head under the bed, until cat found him that way and needed to lift him. Plan: We will order a shower We will order gentamicin eyedrops (10) Abnormal EKG Conclusion/Plan: This patient has a remarkable EKG showing early R/S transition which could signify cor pulmonale. He had the same abnormal EKG findings 2 months ago on admission An Echo was done to check if he has cor pulmonale, and it showed: an essentially normal heart, with normal LV size and systolic function but grade 1 diastolic function present and normal RV size and function were seen - Current Meds Current Meds: Current Medications Generic Name Dose Route Start Last Admin Trade Name Freq PRN Reason Stop Dose Admin Acetaminophen 650 mg 02/15/23 19:57 02/17/23 14:29 Acetaminophen 325 Mg Tablet PO 650 mg Q4HR PRN Administration Pain or Fever > 38C (100.4F) Duloxetine HCl 30 mg 02/15/23 13:30 02/17/23 14:23 Duloxetine 30 Mg Capsule PO 30 mg DAILY ANGELA Administration Fluticasone Propionate 1 sprays 02/17/23 09:00 02/17/23 14:24 Fluticasone Nasal [place] CRISTIAN Not Given DAILY ANGELA Gentamicin Sulfate 1 drops 02/16/23 21:00 02/17/23 11:09 Gentamicin 0.3% Ophth Drops EACHEYE 1 drops BID ANGELA Administration Sodium Chloride 1,000 mls @ 125 mls/hr 02/14/23 12:00 02/17/23 11:49 Normal Saline 0.9% IV 125 mls/hr .Q8H ANGELA Administration Insulin Human Lispro 1 - 5 unit 02/14/23 12:00 02/17/23 16:48 Insulin Lispro 300 Unit/3 Ml Pen SUBQ Not Given 0800,1200,1700,2100 ANGELA Protocol Magnesium Oxide 400 mg 02/16/23 08:00 02/17/23 14:23 Magnesium Oxide 400 Mg Tablet PO 400 mg DAILYWM ANGELA Administration Buprenorphine 15 1 each 02/16/23 14:37 02/16/23 15:09 Mcg/Hr Patch.Tdwk TOP 1 each Q7D PRN Administration PAIN Sodium Chloride 10 ml 02/14/23 17:00 02/17/23 10:48 Sodium Chloride Flush 0.9% 10 Ml Syringe IVP Not Given 0100,0900,1700 ANGELA - Lab Result Fish Bone Diagrams: 02/16/23 04:52 02/17/23 05:35 - Additional Planning My Orders: My Active Orders 02/16/23 21:00 Gentamicin 0.3% Ophth Drops [Garamycin] 1 drops EACHEYE BID 02/17/23 09:00 Fluticasone [Flonase] 1 sprays CRISTIAN DAILY 02/18/23 05:00 BMP - BASIC METABOLIC PANEL [CHEM] DAILYLAB CK- CREATINE KINASE [CHEM] DAILYLAB 02/18/23 09:00 Aspirin EC [Ecotrin] 81 mg PO DAILY 02/19/23 05:00 BMP - BASIC METABOLIC PANEL [CHEM] DAILYLAB 02/20/23 05:00 BMP - BASIC METABOLIC PANEL [CHEM] DAILYLAB Subjective - Subjective Nursing Reports: Other (Asleep all morning, slept thru breakfast, awoke at 1400, ate lunch then walked with PT) Objective Vital Signs: Vital Signs - 24 hr 02/17/23 02/17/23 00:00 08:00 Temperature 37 C 37.0 C Heart Rate [ 65 55 L Brachial] Respiratory 16 17 Rate Blood Pressure 150/88 H 127/68 [Right Brachial artery] O2 Saturation 97 97 Oxygen O2 Source Room air I&O (Last 24 Hrs): Intake and Output Totals x24h 02/15/23 02/16/23 02/17/23 23:59 23:59 23:59 Intake Total 3647 5147.917 2192.084 Output Total 3000 800 Balance 647 5147.917 1392.084 General: Other (Asleep, snoring) HEENT: Mucous membr. moist/pink, Other (Mult bruises and skin tears) Neck: Supple, No JVD Neuro: Other (Currently asleep and in no distress, when awake, he is mostly catatonic, speaks briefly) Cardiovascular: Regular rate Respiratory: No respiratory distress Extremities: No clubbing, No edema, Other (Multiple ecchymoses, abrasions, skin tears on extremities) - Results Results: Laboratory Results WBC 7.4 x10^3/uL (4.8-10.8) 02/16/23 04:52 RBC 3.61 10^6/uL (4.70-6.10) L 02/16/23 04:52 Hgb 10.8 g/dL (14.0-18.0) L 02/16/23 04:52 Hct 32.4 % (42.0-52.0) L 02/16/23 04:52 MCV 89.8 fL (80.0-94.0) 02/16/23 04:52 MCH 29.9 pg (27.0-31.0) 02/16/23 04:52 MCHC 33.3 g/dL (32.0-36.0) 02/16/23 04:52 RDW 13.1 % (12.0-15.0) 02/16/23 04:52 Plt Count 208 10^3/uL (130-450) 02/16/23 04:52 MPV 9.1 fL (7.4-11.4) 02/16/23 04:52 Neut # (Auto) 4.8 10^3/uL (1.5-6.6) 02/16/23 04:52 Lymph # (Auto) 1.9 10^3/uL (1.5-3.5) 02/16/23 04:52 [place] # (Auto) 0.5 10^3/uL (0.0-1.0) 02/16/23 04:52 Eos # (Auto) 0.2 10^3/uL (0.0-0.7) 02/16/23 04:52 Baso # (Auto) 0.0 10^3/uL (0.0-0.1) 02/16/23 04:52 Absolute Nucleated RBC 0.00 x10^3/uL 02/16/23 04:52 Total Counted 100 02/14/23 03:15 Band Neuts % (Manual) 9 % (0-10) 02/14/23 03:15 Abnorm Lymph % (Manual) 0 % 02/14/23 03:15 Nucleated RBC % 0.0 /100WBC 02/16/23 04:52 Neutrophils # (Manual) 18.2 10^3/uL (1.5-6.6) H 02/14/23 03:15 Lymphocytes # (Manual) 1.0 10^3/uL (1.5-3.5) L 02/14/23 03:15 Monocytes # (Manual) 1.2 10^3/uL (0.0-1.0) H 02/14/23 03:15 Eosinophils # (Manual) 0.0 10^3/uL (0-0.7) 02/14/23 03:15 Basophils # (Manual) 0.0 10^3/uL (0-0.1) 02/14/23 03:15 Differential Comment MANUAL DIFFERENTIAL 02/14/23 03:15 Sodium 141 mmol/L (135-145) 02/17/23 05:35 Potassium 4.0 mmol/L (3.5-5.0) 02/17/23 05:35 Chloride 111 mmol/L (101-111) 02/17/23 05:35 Carbon Dioxide 24 mmol/L (21-32) 02/17/23 05:35 Anion Gap 6.0 (6-13) 02/17/23 05:35 BUN 19 mg/dL (6-20) 02/17/23 05:35 Creatinine 1.6 mg/dL (0.6-1.2) H 02/17/23 05:35 Estimated GFR (MDRD) 45 (>89) L 02/17/23 05:35 Glucose 126 mg/dL (70-100) H 02/17/23 05:35 Estimat Average Glucose 134 mg/dL (70-100) H 02/15/23 05:20 Hemoglobin A1c % 6.3 % (4.27-6.07) H 02/15/23 05:20 Calcium 8.7 mg/dL (8.5-10.3) 02/17/23 05:35 Magnesium 1.5 mg/dL (1.7-2.8) L 02/17/23 05:35 Total Bilirubin 0.8 mg/dL (0.2-1.0) 02/14/23 03:15 AST 155 IU/L (10-42) H 02/14/23 03:15 ALT 58 IU/L (10-60) 02/14/23 03:15 Alkaline Phosphatase 107 IU/L (42-121) 02/14/23 03:15 Total Creatine Kinase 9257 IU/L (22-269) H* 02/17/23 05:35 CK-MB (CK-2) 265.9 ng/mL (0.6-6.3) H 02/14/23 03:15 Total Protein 8.3 g/dL (6.7-8.2) H 02/14/23 03:15 Albumin 4.2 g/dL (3.2-5.5) 02/14/23 03:15 Globulin 4.1 g/dL (2.1-4.2) 02/14/23 03:15 Albumin/Globulin Ratio 1.0 (1.0-2.2) 02/14/23 03:15 Lipase 34 U/L (22-51) 02/14/23 03:15 TSH 1.21 uIU/mL (0.34-5.60) 02/14/23 03:15 Urine Color BROWN 02/14/23 10:34 Urine Clarity CLEAR (CLEAR) 02/14/23 10:34 Urine pH 6.0 PH (5.0-7.5) 02/14/23 10:34 Ur Specific [place] 1.025 (1.002-1.030) 02/14/23 10:34 Urine Protein 100 mg/dL (NEGATIVE) H 02/14/23 10:34 Urine Glucose (UA) NEGATIVE mg/dL (NEGATIVE) 02/14/23 10:34 Urine Ketones NEGATIVE mg/dL (NEGATIVE) 02/14/23 10:34 Urine Occult Blood LARGE (NEGATIVE) H 02/14/23 10:34 Urine Nitrite NEGATIVE (NEGATIVE) 02/14/23 10:34 Urine Bilirubin NEGATIVE (NEGATIVE) 02/14/23 10:34 Urine Urobilinogen 0.2 (NORMAL) E.U./dL (NORMAL) 02/14/23 10:34 Ur Leukocyte Esterase NEGATIVE (NEGATIVE) 02/14/23 10:34 Urine RBC 11-25 /HPF (0-5) H 02/14/23 10:34 Urine WBC 0-3 /HPF (0-3) 02/14/23 10:34 Ur Squamous Epith Cells NONE SEEN (<= Few) 02/14/23 10:34 Urine Bacteria Few /HPF (None Seen) 02/14/23 10:34 Ur Microscopic Review INDICATED 02/14/23 10:34 Urine Culture Comments NOT INDICATED 02/14/23 10:34 Urine Opiates Screen NEGATIVE (NEGATIVE) 02/14/23 10:34 Ur Oxycodone Screen NEGATIVE (NEGATIVE) 02/14/23 10:34 Urine Methadone Screen NEGATIVE (NEGATIVE) 02/14/23 10:34 Ur Propoxyphene Screen NEGATIVE (NEGATIVE) 02/14/23 10:34 Ur Barbiturates Screen NEGATIVE (NEGATIVE) 02/14/23 10:34 Ur Tricyclics Screen NEGATIVE (NEGATIVE) 02/14/23 10:34 Ur Phencyclidine Scrn NEGATIVE (NEGATIVE) 02/14/23 10:34 Ur Amphetamine Screen NEGATIVE (NEGATIVE) 02/14/23 10:34 U Methamphetamines Scrn NEGATIVE (NEGATIVE) 02/14/23 10:34 U Benzodiazepines Scrn NEGATIVE (NEGATIVE) 02/14/23 10:34 Urine Cocaine Screen NEGATIVE (NEGATIVE) 02/14/23 10:34 U Cannabinoids Screen POSITIVE (NEGATIVE) H 02/14/23 10:34 Ethyl Alcohol < 5.0 mg/dL 02/14/23 03:15
[2023-02-17] MEDS: polyethylene glycoL 3350 17 GM PACKET PO SCH (17:53)
[2023-02-18] MEDS: SODIUM CHLORIDE FLUSH 0.9% 10 ML SYRINGE IVP SCH ×4 (01:47→23:33)
[2023-02-18 07:11] LABS: CALCIUM 8.9 mg/dL (8.5-10.3); CREATININE 1.5 mg/dL (0.6-1.2); POTASSIUM 3.8 mmol/L (3.5-5.0)
[2023-02-18] MEDS: INSULIN LISPRO 300 UNIT/3 ML PEN SUBQ SCH ×4 (08:12→21:39)
[2023-02-18] MEDS: polyethylene glycoL 3350 17 GM PACKET PO SCH (08:20)
[2023-02-18] MEDS: MAGNESIUM OXIDE 400 MG TABLET PO SCH (08:20)
[2023-02-18] MEDS: ASPIRIN EC 81 MG TABLET PO SCH (08:20)
[2023-02-18] MEDS: DULoxetine 30 MG CAPSULE PO SCH (08:20)
[2023-02-18] MEDS: SODIUM CHLORIDE 0.9% 1,000 ML IV SCH ×3 (08:50→21:39)
[2023-02-18] MEDS: GENTAMICIN 0.3% OPHTH DROPS EACHEYE SCH ×2 (10:28→21:38)
[2023-02-18] MEDS: FLUTICASONE NASAL SPRAY NAS SCH (10:28)
[2023-02-18] MEDS: MULTIVITAMIN W/MINERALS TABLET PO SCH (10:28)
[2023-02-18] MEDS ORDERED: BISACODYL 10 MG SUPP PR ONE (10:30)
[2023-02-18] MEDS: SENNA 8.6 MG TABLET PO SCH (10:55)
[2023-02-18] MEDS: DOCUSATE SODIUM 250 MG CAPSULE PO SCH (10:55)
[2023-02-18] MEDS: IBUPROFEN 600 MG TABLET PO PRN (15:00)
[2023-02-18 15:20] LABS: BILIRUBIN,URINE NEGATIVE (NEGATIVE); GLUCOSE, URINE (UA) NEGATIVE (NEGATIVE); KETONES,URINE (UA) NEGATIVE (NEGATIVE); LEUKOCYTE ESTERASE, URINE TRACE (NEGATIVE); NITRITE,URINE NEGATIVE (NEGATIVE); OCCULT BLOOD,URINE MODERATE (NEGATIVE); PH,URINE 5.5 PH (5.0-7.5); PROTEIN,URINE NEGATIVE (NEGATIVE); UROBILINOGEN,URINE 0.2 (NORMAL) E.U./dL (NORMAL)
[2023-02-18 15:34] LABS: CLARITY,URINE CLEAR (CLEAR)
[2023-02-18 15:35] LABS: BACTERIA,URINE None Seen /HPF (None Seen); SPERM,URINE PRESENT; SQUAMOUS EPITHELIAL CELL,UR RARE Squamous (<= Few)
--- NOTE | 2023-02-18 17:28 | PROVIDER PROGRESS NOTE ---
Assessment/Plan - Problem List (1) Rhabdomyolysis Qualifiers: Rhabdomyolysis type: traumatic Assessment/Plan: Related to the trauma of multiple ground-level falls and laying on the ground for unknown amount of time. Labs were all reviewed. His CK has overall slowly decreased, has been on saline since adm Plan: Will continue with IV NS hydration Follow CK daily Qualifiers: Rhabdomyolysis type: traumatic (2) Left arm swelling The appearance is that of dependent edema, perhaps he laid on that arm when he slept Plan: We will order ultrasound duplex Doppler to evaluate for DVT (3) Catatonia Conclusion/Plan: Since admission, the patient just stares at me and other staff after being asked a question, and occasionally softly mumbles an answer, to what was asked 2 questions ago. Other staff have told me that he does the same thing with them and he does not participate in any discussions. He did initially keep asking when Mer will visit and she visited him on 02/17. I spoke to his caregiver, Mer in the room at his bedside on 02/17 and updated her. Mer told me by phone on 02/16 that he has worsened since 2010, goes to a psychiatrist, has had his psychiatric meds adjusted and we do have the current proper medication list. Mer said that when he stares at you. "it is because the people that are in his body do not like what they are hearing". Therefore, when he is staring, his symptoms are not under control. Mer said this is his catatonia. Mer said that the patient can no longer make decisions for himself, and she has to remind him and cue him multiple times to do something. She is working with the pt's daughter Christina, and the patient's case briefer, trying to get him permanent placement. Plan: We will continue with his current psych medications Patient may need psych evaluation. (4) Schizophrenia As in #3 (5) ANGELO (acute kidney injury) Conclusion/Plan: He was visibly dehydrated clinically. His BUN/creat have improved from admission, since iv fluids were started. His baseline creat is 1.1 (records were reviewed). Labs were all reviewed. Today's creatinine is 1.5 This Angelo is likely from underlying volume depletion in addition to the rhabdo Plan: Avoid nephrotoxins Continue IV fluids Follow BMP daily (6) Abrasions of multiple sites Conclusion/Plan: As per photos taken by nursing Plan: We will provide topical care where necessary We will also order medications for pain and cont his weekly Suboxone (7) Fall at home Conclusion/Plan: His C-spine and head were cleared with CT imaging. He then complained of left shoulder pain and shoulder images were done that showed no fracture or dislocation He is not orthostatic There is Hx that the patient needs to use a walker and keeps forgetting, which may lead to him having an unsteady gait causing the falls. I spoke to his caregiver, Mer to get details. EMS wrote that the patient had fallen 3 times in 24 hours, Mer corrected this and said he fell 3 times in 30 minutes; she came home and found him on the floor unable to get up because his head was stuck under the foot of his bed. She had to raise the bed to get him out, then she sat him up on his bed and he fell forward onto the floor. She then got him up again and sat him on the bed and he fell forward once more. This is when she called EMS. Plan: Give pain meds as needed Will stop orthostatic vital sign checks This problem of recurrent falls could lead to a need for long-term care placement, since he now has Hx of repeat falls at home (with his last admission, which was just 2 mos ago, he fell outside when he was not supervised, and this admission the initial fall was when he was unsupervised). Due to his poor judgement, and since the caregiver is not home all the time, I suspect he will now need 24/7 care. When I spoke to Mer on 02/17, she said she has already been trying to get him permanent placement, and that his assistant attorney general and his daughter Christina are working on permanent placement for him. (8) Buprenorphine dependence Conclusion/Plan: As per history, this is for chronic back pain. I am concerned that this may be over sedating him and adding to the falls. In addition, pharmacy learned today that his last prescription was written by his PCP 1 year ago, it was ordered for 13 weeks, so he should have run out many months ago, however there are still several patches available in the box that Mer brought from home. We therefore suspect that he was not getting patches on a routine scheduled basis, probably just haphazardly. Plan: Will not reorder buprenorphine patches q week (9) DM type 2 (diabetes mellitus, type 2) Conclusion/Plan: He is on metformin at home. His A1c came back very good at 6.3. Plan: Continue diabetic diet We have not yet resumed his metformin while he has ANGELO Cont fingerstick checks, sliding scale regular insulin coverage and hypoglycemia protocol (10) Poor hygiene One of the examples Mer described to me was that she needs to wipe his gilliam after he eats because he is so messy. He is less able to feed himself over just this past year. His eyelashes have crusted debris. Unknown period of time that he was laying on the floor with his head under the bed, until Kjosé found him that way and needed to lift him. Plan: We will order a shower We will order gentamicin eyedrops (11) Abnormal EKG Conclusion/Plan: This patient has a remarkable EKG showing early R/S transition which could signify cor pulmonale. He had the same abnormal EKG findings 2 months ago on admission An Echo was done to check if he has cor pulmonale, and it showed: an essentially normal heart, with normal LV size and systolic function but grade 1 diastolic function present and normal RV size and function were seen. - Current Meds Current Meds: Current Medications Generic Name Dose Route Start Last Admin Trade Name Freq PRN Reason Stop Dose Admin Acetaminophen 650 mg 02/15/23 19:57 02/17/23 14:29 Acetaminophen 325 Mg Tablet PO 650 mg Q4HR PRN Administration Pain or Fever > 38C (100.4F) Aspirin 81 mg 02/18/23 09:00 02/18/23 08:20 Aspirin Ec 81 Mg Tablet PO 81 mg DAILY ANGELA Administration Docusate Sodium 250 - 500 mg 02/18/23 11:00 02/18/23 10:55 Docusate Sodium 250 Mg Capsule PO 250 mg DAILY ANGELA Administration Duloxetine HCl 30 mg 02/15/23 13:30 02/18/23 08:20 Duloxetine 30 Mg Capsule PO 30 mg DAILY ANGELA Administration Fluticasone Propionate 1 sprays 02/17/23 09:00 02/18/23 10:28 Fluticasone Nasal [place] 1 spr DAILY ANGELA Administration Gentamicin Sulfate 1 drops 02/16/23 21:00 02/18/23 10:28 Gentamicin 0.3% Ophth Drops EACHEYE 1 drops BID ANGELA Administration Sodium Chloride 1,000 mls @ 125 mls/hr 02/14/23 12:00 02/18/23 15:02 Normal Saline 0.9% IV Not Given .Q8H ANGELA Ibuprofen 600 mg 02/15/23 19:57 02/18/23 15:00 Ibuprofen 600 Mg Tablet PO 600 mg Q6HR PRN Administration MINOR [place]IN Insulin Human Lispro 1 - 5 unit 02/14/23 12:00 02/18/23 11:54 Insulin Lispro 300 Unit/3 Ml Pen SUBQ Not Given 0800,1200,1700,2100 [facility] Protocol Magnesium Oxide 400 mg 02/16/23 08:00 02/18/23 08:20 Magnesium Oxide 400 Mg Tablet PO 400 mg DAILYWM ANGELA Administration Multivitamins/Minerals 1 tab 02/18/23 09:00 02/18/23 10:28 Multivitamin W/Minerals Tablet PO 1 tab DAILYWM ANGELA Administration Buprenorphine 15 1 each 02/16/23 14:37 02/16/23 15:09 Mcg/Hr Patch.Tdwk TOP 1 each Q7D PRN Administration PAIN Polyethylene Glycol 17 gm 02/17/23 18:00 02/18/23 08:20 Polyethylene Glycol 3350 17 Gm Packet PO 17 gm DAILY ANGELA Administration Senna 8.6 - 17.2 mg 02/18/23 11:00 02/18/23 10:55 Senna 8.6 Mg Tablet PO 8.6 mg DAILY ANGELA Administration Sodium Chloride 10 ml 02/14/23 17:00 02/18/23 08:22 Sodium Chloride Flush 0.9% 10 Ml Syringe IVP Not Given 0100,0900,1700 ANGELA - Lab Result Fish Bone Diagrams: 02/16/23 04:52 02/18/23 06:29 - Additional Planning My Orders: My Active Orders 02/17/23 18:00 polyethylene glycoL 3350 [Miralax] 17 gm PO DAILY 02/18/23 09:00 Aspirin EC [Ecotrin] 81 mg PO DAILY Multivitamin W/Minerals [Theragran M] 1 tab PO DAILYWM 02/18/23 11:00 Docusate Sodium 250Mg Capsule [Colace 250Mg Capsule] 250 - 500 mg PO DAILY Senna [Senokot] 8.6 - 17.2 mg PO DAILY 02/18/23 15:10 CUL, URINE [RM] Stat 02/19/23 05:00 BMP - BASIC METABOLIC PANEL [CHEM] DAILYLAB 02/20/23 05:00 BMP - BASIC METABOLIC PANEL [CHEM] DAILYLAB Subjective - Subjective Patient Reports: Other (Today he is hyperactive, impulsive, getting up on his own, tried to walk out into the hallway w/out a walker, is going repeatedly to his bedside commode, but is not communicative and will only half the time listen to directions) Objective Vital Signs: Vital Signs - 24 hr 02/17/23 02/18/23 02/18/23 23:58 07:37 16:00 Temperature 36.7 C 36.7 C 37.1 C Heart Rate [ 85 61 94 Brachial] Respiratory 16 18 20 Rate Blood Pressure 130/77 136/58 H [Left Brachial artery] Blood Pressure 116/65 [Right Brachial artery] O2 Saturation 97 98 99 Oxygen O2 Source Room air I&O (Last 24 Hrs): Intake and Output Totals x24h 02/16/23 02/17/23 02/18/23 23:59 23:59 23:59 Intake Total 5147.917 3822.084 3094.833 Output Total 1999 875 Balance 5147.917 1272.813 1066.833 General: Alert, Other (Stares ahead) HEENT: Mucous membr. moist/pink, Other (Male pattern baldness. Multiple skin tears and excoriations on 4) Neck: Supple, No JVD Neuro: Alert, Other (He is minimally communicative, is able to walk today, he stares ahead w/ flat affect, and needs directions given 2 or 3 times before he carries out a command) Cardiovascular: Regular rate Respiratory: No respiratory distress Abdomen: No tenderness Extremities: Other (Left arm has pitting edema from below the axilla down to the fingers, not tender. All 4 extremities have bruises, cuts, abrasions, skin tears) - Results Results: Laboratory Results WBC 7.4 x10^3/uL (4.8-10.8) 02/16/23 04:52 RBC 3.61 10^6/uL (4.70-6.10) L 02/16/23 04:52 Hgb 10.8 g/dL (14.0-18.0) L 02/16/23 04:52 Hct 32.4 % (42.0-52.0) L 02/16/23 04:52 MCV 89.8 fL (80.0-94.0) 02/16/23 04:52 MCH 29.9 pg (27.0-31.0) 02/16/23 04:52 MCHC 33.3 g/dL (32.0-36.0) 02/16/23 04:52 RDW 13.1 % (12.0-15.0) 02/16/23 04:52 Plt Count 208 10^3/uL (130-450) 02/16/23 04:52 MPV 9.1 fL (7.4-11.4) 02/16/23 04:52 Neut # (Auto) 4.8 10^3/uL (1.5-6.6) 02/16/23 04:52 Lymph # (Auto) 1.9 10^3/uL (1.5-3.5) 02/16/23 04:52 [place] # (Auto) 0.5 10^3/uL (0.0-1.0) 02/16/23 04:52 Eos # (Auto) 0.2 10^3/uL (0.0-0.7) 02/16/23 04:52 Baso # (Auto) 0.0 10^3/uL (0.0-0.1) 02/16/23 04:52 Absolute Nucleated RBC 0.00 x10^3/uL 02/16/23 04:52 Total Counted 100 02/14/23 03:15 Band Neuts % (Manual) 9 % (0-10) 02/14/23 03:15 Abnorm Lymph % (Manual) 0 % 02/14/23 03:15 Nucleated RBC % 0.0 /100WBC 02/16/23 04:52 Neutrophils # (Manual) 18.2 10^3/uL (1.5-6.6) H 02/14/23 03:15 Lymphocytes # (Manual) 1.0 10^3/uL (1.5-3.5) L 02/14/23 03:15 Monocytes # (Manual) 1.2 10^3/uL (0.0-1.0) H 02/14/23 03:15 Eosinophils # (Manual) 0.0 10^3/uL (0-0.7) 02/14/23 03:15 Basophils # (Manual) 0.0 10^3/uL (0-0.1) 02/14/23 03:15 Differential Comment MANUAL DIFFERENTIAL 02/14/23 03:15 Sodium 139 mmol/L (135-145) 02/18/23 06:29 Potassium 3.8 mmol/L (3.5-5.0) 02/18/23 06:29 Chloride 108 mmol/L (101-111) 02/18/23 06:29 Carbon Dioxide 22 mmol/L (21-32) 02/18/23 06:29 Anion Gap 9.0 (6-13) 02/18/23 06:29 BUN 22 mg/dL (6-20) H 02/18/23 06:29 Creatinine 1.5 mg/dL (0.6-1.2) H 02/18/23 06:29 Estimated GFR (MDRD) 48 (>89) L 02/18/23 06:29 Glucose 97 mg/dL (70-100) 02/18/23 06:29 Estimat Average Glucose 134 mg/dL (70-100) H 02/15/23 05:20 Hemoglobin A1c % 6.3 % (4.27-6.07) H 02/15/23 05:20 Calcium 8.9 mg/dL (8.5-10.3) 02/18/23 06:29 Magnesium 1.5 mg/dL (1.7-2.8) L 02/17/23 05:35 Total Bilirubin 0.8 mg/dL (0.2-1.0) 02/14/23 03:15 AST 155 IU/L (10-42) H 02/14/23 03:15 ALT 58 IU/L (10-60) 02/14/23 03:15 Alkaline Phosphatase 107 IU/L (42-121) 02/14/23 03:15 Total Creatine Kinase 8328 IU/L (22-269) H* 02/18/23 06:29 CK-MB (CK-2) 265.9 ng/mL (0.6-6.3) H 02/14/23 03:15 Total Protein 8.3 g/dL (6.7-8.2) H 02/14/23 03:15 Albumin 4.2 g/dL (3.2-5.5) 02/14/23 03:15 Globulin 4.1 g/dL (2.1-4.2) 02/14/23 03:15 Albumin/Globulin Ratio 1.0 (1.0-2.2) 02/14/23 03:15 Lipase 34 U/L (22-51) 02/14/23 03:15 TSH 1.21 uIU/mL (0.34-5.60) 02/14/23 03:15 Urine Color YELLOW 02/18/23 15:10 Urine Clarity CLEAR (CLEAR) 02/18/23 15:10 Urine pH 5.5 PH (5.0-7.5) 02/18/23 15:10 Ur Specific [place] 1.020 (1.002-1.030) 02/18/23 15:10 Urine Protein NEGATIVE mg/dL (NEGATIVE) 02/18/23 15:10 Urine Glucose (UA) NEGATIVE mg/dL (NEGATIVE) 02/18/23 15:10 Urine Ketones NEGATIVE mg/dL (NEGATIVE) 02/18/23 15:10 Urine Occult Blood MODERATE (NEGATIVE) H 02/18/23 15:10 Urine Nitrite NEGATIVE (NEGATIVE) 02/18/23 15:10 Urine Bilirubin NEGATIVE (NEGATIVE) 02/18/23 15:10 Urine Urobilinogen 0.2 (NORMAL) E.U./dL (NORMAL) 02/18/23 15:10 Ur Leukocyte Esterase TRACE (NEGATIVE) H 02/18/23 15:10 Urine RBC 11-25 /HPF (0-5) H 02/18/23 15:10 Urine WBC 6-10 /HPF (0-3) H 02/18/23 15:10 Ur Squamous Epith Cells RARE Squamous (<= Few) 02/18/23 15:10 Urine Bacteria None Seen /HPF (None Seen) 02/18/23 15:10 Urine Sperm PRESENT 02/18/23 15:10 Ur Microscopic Review INDICATED 02/14/23 10:34 Urine Culture Comments INDICATED 02/18/23 15:10 Urine Opiates Screen NEGATIVE (NEGATIVE) 02/14/23 10:34 Ur Oxycodone Screen NEGATIVE (NEGATIVE) 02/14/23 10:34 Urine Methadone Screen NEGATIVE (NEGATIVE) 02/14/23 10:34 Ur Propoxyphene Screen NEGATIVE (NEGATIVE) 02/14/23 10:34 Ur Barbiturates Screen NEGATIVE (NEGATIVE) 02/14/23 10:34 Ur Tricyclics Screen NEGATIVE (NEGATIVE) 02/14/23 10:34 Ur Phencyclidine Scrn NEGATIVE (NEGATIVE) 02/14/23 10:34 Ur Amphetamine Screen NEGATIVE (NEGATIVE) 02/14/23 10:34 U Methamphetamines Scrn NEGATIVE (NEGATIVE) 02/14/23 10:34 U Benzodiazepines Scrn NEGATIVE (NEGATIVE) 02/14/23 10:34 Urine Cocaine Screen NEGATIVE (NEGATIVE) 02/14/23 10:34 U Cannabinoids Screen POSITIVE (NEGATIVE) H 02/14/23 10:34 Ethyl Alcohol < 5.0 mg/dL 02/14/23 03:15
[2023-02-19] MEDS: SODIUM CHLORIDE 0.9% 1,000 ML IV SCH ×3 (00:09→16:38)
--- NOTE | 2023-02-19 00:47 | Ultrasound Report ---
PROCEDURE: Duplex Ext Veins Left INDICATIONS: New L arm swelling, eval for DVT TECHNIQUE: Real-time imaging, as well as color and pulse Doppler interrogation, were performed of the lower extr emity deep veins from the inguinal ligament to the popliteal fossa. COMPARISON: None. FINDINGS: The deep veins are normally compressible, and free of intraluminal thrombus. Color and pu lse Doppler demonstrate normal phasic intraluminal flow. There is normal augmentation response to di stal compression maneuver. IMPRESSION: 1. No evidence of deep venous thrombosis in the left upper extremity. Reviewed by: Sylvester Weir MD on 02/19/2023 12:45 AM PDT Approved by: Sylvester Weir MD on 02/19/2023 12:45 AM PDT Station ID: [id number]
[2023-02-19] MEDS: INSULIN LISPRO 300 UNIT/3 ML PEN SUBQ SCH ×4 (07:35→20:55)
[2023-02-19 07:52] LABS: CALCIUM 8.7 mg/dL (8.5-10.3); CREATININE 1.4 mg/dL (0.6-1.2); POTASSIUM 3.8 mmol/L (3.5-5.0)
[2023-02-19] MEDS: polyethylene glycoL 3350 17 GM PACKET PO SCH (10:08)
[2023-02-19] MEDS: DOCUSATE SODIUM 250 MG CAPSULE PO SCH (10:09)
[2023-02-19] MEDS: SENNA 8.6 MG TABLET PO SCH (10:10)
[2023-02-19] MEDS: ASPIRIN EC 81 MG TABLET PO SCH (10:10)
[2023-02-19] MEDS: MULTIVITAMIN W/MINERALS TABLET PO SCH (10:10)
[2023-02-19] MEDS: DULoxetine 30 MG CAPSULE PO SCH (10:10)
[2023-02-19] MEDS: MAGNESIUM OXIDE 400 MG TABLET PO SCH (10:10)
[2023-02-19] MEDS: FLUTICASONE NASAL SPRAY NAS SCH (10:12)
[2023-02-19] MEDS: GENTAMICIN 0.3% OPHTH DROPS EACHEYE SCH ×2 (10:12→20:54)
[2023-02-19] MEDS: SODIUM CHLORIDE FLUSH 0.9% 10 ML SYRINGE IVP SCH ×2 (10:12→17:18)
[2023-02-19] MEDS: ACETAMINOPHEN 325 MG TABLET PO PRN ×2 (10:24→15:06)
--- NOTE | 2023-02-19 14:50 | PROVIDER PROGRESS NOTE ---
Subjective - Prog Note Date Prog Note Date: 02/19/23 Prog Note Time: 14:44 - Subjective Subjective: He mumbles. But his answers are not really distinguishable as words. He tries to respond to my questioning. But I have to ask him 5 or 6 questions before he will make a verbal response that I really cannot understand or hear. The verbal response is very short. Yesterday he was described as agitated starting at 8 in the morning. Was pacing in the room. Putting both hands on his lower abdomen and jiggling it. Going in and out of the bathroom. Had a large bowel movement and frequent urination. But he was not able to verbalize discomfort. Urine was sent for culture and there is no growth. Urinalysis had squamous cells, sperm, red cells, white cells, and occult blood. Trace leukocyte Estrace. Negative for nitrates. This morning he was asleep. It took several times of me calling his name before he opened his eyes and look to me but he is mute. Not speaking.tNow is awake. Keeps on getting up. And sitting on the toilet. Then getting back in bed. Doing it frequently. He is only said 2 things today. 1 was his name, and the other one is "my butt hurts". Current Medications - Current Medications Current Medications: Active Medications Acetaminophen (Acetaminophen 325 Mg Tablet) 650 mg PO Q4HR PRN PRN Reason: Pain or Fever > 38C (100.4F) Last Admin: 02/19/23 10:24 Dose: 650 mg Aspirin (Aspirin Ec 81 Mg Tablet) 81 mg PO DAILY [facility] Last Admin: 02/19/23 10:10 Dose: 81 mg Docusate Sodium (Docusate Sodium 250 Mg Capsule) 250 - 500 mg PO DAILY [facility] Last Admin: 02/19/23 10:09 Dose: 250 mg Duloxetine HCl (Duloxetine 30 Mg Capsule) 30 mg PO DAILY [facility] Last Admin: 02/19/23 10:10 Dose: 30 mg Fluticasone Propionate (Fluticasone Nasal [place]) 1 sprays CRISTIAN DAILY [facility] Last Admin: 02/19/23 10:12 Dose: 1 spr Gentamicin Sulfate (Gentamicin 0.3% Ophth Drops) 1 drops EACHEYE BID [facility] Last Admin: 02/19/23 10:12 Dose: 1 drops Sodium Chloride (Normal Saline 0.9%) 1,000 mls @ 125 mls/hr IV .Q8H [facility] Last Admin: 02/19/23 08:33 Dose: 125 mls/hr Ibuprofen (Ibuprofen 600 Mg Tablet) 600 mg PO Q6HR PRN PRN Reason: MINOR PAIN Last Admin: 02/18/23 15:00 Dose: 600 mg Insulin Human Lispro (Insulin Lispro 300 Unit/3 Ml Pen) 1 - 5 unit SUBQ 0800,1200,1700,2100 [facility]; Protocol Last Admin: 02/19/23 11:52 Dose: 1 unit Magnesium Oxide (Magnesium Oxide 400 Mg Tablet) 400 mg PO DAILYWM [facility] Last Admin: 02/19/23 10:10 Dose: 400 mg Multivitamins/Minerals (Multivitamin W/Minerals Tablet) 1 tab PO DAILYWM [facility] Last Admin: 02/19/23 10:10 Dose: 1 tab Ondansetron HCl (Ondansetron 4 Mg/2 Ml Vial) 4 mg IVP Q6HR PRN PRN Reason: Nausea / Vomiting Polyethylene Glycol (Polyethylene Glycol 3350 17 Gm Packet) 17 gm PO DAILY [facility] Last Admin: 02/19/23 10:08 Dose: 17 gm Senna (Senna 8.6 Mg Tablet) 8.6 - 17.2 mg PO DAILY [facility] Last Admin: 02/19/23 10:10 Dose: 8.6 mg Sodium Chloride (Sodium Chloride Flush 0.9% 10 Ml Syringe) 10 ml IVP PRN PRN PRN Reason: NEEDED PER PROVIDER ORDERS Sodium Chloride (Sodium Chloride Flush 0.9% 10 Ml Syringe) 10 ml IVP 0100,0900,1700 [facility] Last Admin: 02/19/23 10:12 Dose: Not Given metFORMIN [Glucophage] 1,000 mg PO BIDWM 08/29/20 Aspirin [Aspirin EC] 81 mg PO DAILY 12/20/22 Atorvastatin Calcium [Lipitor] 80 mg PO HS 12/20/22 DULoxetine [Cymbalta] 60 mg PO DAILY 12/20/22 Fluticasone [Flonase] 1 sprays CRISTIAN DAILY 12/20/22 Gabapentin [Neurontin] 600 mg PO TID 12/20/22 risperiDONE [Risperdal] 3 mg PO BID 12/20/22 Buprenorphine 1 each TD Q7D PRN 12/21/22 Objective - Vital Signs/Intake & Output Reviewed Vital Signs: Yes Vital Signs: Vital Signs x48h Temp Pulse Resp BP Pulse Ox 02/19/23 07:31 36.7 C 54 L 18 141/59 H 95 Intake & Output: Intake & Output 02/16/23 02/17/23 02/18/23 02/19/23 23:59 23:59 23:59 23:59 Intake Total 5147.917 3822.084 4089.000 2512.5 Output Total 1999 1175 Balance 5147.917 7790.924 7746.000 2512.5 - Objective General Appearance: positive: Alert, Mild distress, Other (Affect is flat, no expression on his face, nonverbal. Eyes are open and he just stares off into the distance. Does not look at me directly when I speak to him) Eyes Bilateral: positive: PERRL, EOMI ENT: positive: Dry mucous membranes Neck: positive: No JVD. negative: Stiff neck Respiratory: positive: No respiratory distress. negative: Wheezes, Rales, Rhon chi Cardiovascular: positive: Regular rate & rhythm Abdomen: positive: Non-tender (He does not respond to my questioning. But his affect is flat, he stares off at the ceiling when I examine his belly with no grimace of pain or withdrawal of his body for pain), No organomegaly, Nml bowel sounds, No distention Rectal: positive: Other (No hemorrhoids, but he has small fissures at approximately 4:00, 12:00. He does say "ouch" when I am examining him) Skin: positive: Warm, Dry Extremities: positive: Non-tender, Full ROM, No pedal edema Neurologic/Psychiatric: positive: CN's nml (2-12), Motor nml (On his own he is able to sit up, stand at the side of the bed, pull down his underwear, sit on the bedside commode, pull his underwear back up, and then get back in bed. In the 15 minutes with time I am with him, he has done this 5 times.), Depressed mood/affect, Other (Although facial expression is flat, and he does not look at me, when I asked him to do things like rollover, reposition your body for me, he does) - Lab Results Fish Bones: 02/16/23 04:52 02/19/23 07:34 Other Labs: Lab Results x24hrs 02/19/23 02/18/23 Range/Units 07:34 15:10 Sodium 138 (135-145) mmol/L Potassium 3.8 (3.5-5.0) mmol/L Chloride 109 (101-111) mmol/L Carbon Dioxide 23 (21-32) mmol/L Anion Gap 6.0 (6-13) BUN 18 (6-20) mg/dL Creatinine 1.4 H (0.6-1.2) mg/dL Estimated GFR (MDRD) 52 L (>89) Glucose 118 H (70-100) mg/dL Calcium 8.7 (8.5-10.3) mg/dL Urine Color YELLOW Urine Clarity CLEAR (CLEAR) Urine pH 5.5 (5.0-7.5) PH Ur Specific [place] 1.020 (1.002-1.030) Urine Protein NEGATIVE (NEGATIVE) mg/dL Urine Glucose (UA) NEGATIVE (NEGATIVE) mg/dL Urine Ketones NEGATIVE (NEGATIVE) mg/dL Urine Occult Blood MODERATE H (NEGATIVE) Urine Nitrite NEGATIVE (NEGATIVE) Urine Bilirubin NEGATIVE (NEGATIVE) Urine Urobilinogen 0.2 (NORMAL) (NORMAL) E.U./dL Ur Leukocyte Esterase TRACE H (NEGATIVE) Urine RBC 11-25 H (0-5) /HPF Urine WBC 6-10 H (0-3) /HPF Ur Squamous Epith Cells RARE Squamous (<= Few) Urine Bacteria None Seen (None Seen) /HPF Urine Sperm PRESENT Urine Culture Comments INDICATED ABX Reporting Has patient been on IV antibiotics over the past 48 hours?: No Assessment/Plan - Problem List (1) Rhabdomyolysis Impression: Related to the trauma of multiple ground-level falls and laying on the ground for unknown amount of time. Due to multiple falls, and sometimes laying on the ground for hours. He is improving. CPK on admission was 19,799>>5207>>04310>>9257>>8328>> today Plan: Will continue with IV NS hydration. Having the IV is not convenient for his getting up and down, but he is not taking enough n.p.o. As such I will continue the IV normal saline. Follow CK daily My goal is not so much a normal CK but a normal creatinine. Once he has achieved a normal creatinine, even if his CK is high, he would be ready for discharge Qualifiers: Rhabdomyolysis type: traumatic (2) Left arm swelling The appearance is that of dependent edema, perhaps he laid on that arm when he slept. Ultrasound duplex Doppler was done on February 18 to make sure he did not have a DVT. That study was negative. (3) Catatonia Conclusion/Plan: Since admission, the patient just stares at hospitalist and other staff after being asked a question, and occasionally softly mumbles an answer, to what was asked 2 questions ago. Other staff have told me that he does the same thing with them and he does not participate in any discussions. He did initially keep asking when Mer will visit and she visited him on 02/17. I spoke to his caregiver, Mer in the room at his bedside on 02/17 and updated her. Mer told me by phone on 02/16 that he has worsened since 2010, goes to a psychiatrist, has had his psychiatric meds adjusted and we do have the current proper medication list. Mer said that when he stares at you. "it is because the people that are in his body do not like what they are hearing". Therefore, when he is staring, his symptoms are not under control. Mer said this is his catatonia. Mer said that the patient can no longer make decisions for himself, and she has to remind him and cue him multiple times to do something. 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 At home he takes Risperdal 3 mg p.o. twice daily. That was resumed. But then discontinued due to sedation. He seems to be very unhappy yesterday and today. Plan: Resume Risperdal 3 mg p.o. twice daily (4) Schizophrenia As in #3 (5) MILTON (acute kidney injury) Conclusion/Plan: He was visibly dehydrated clinically. His BUN/creat have improved from admission, since iv fluids were started. His baseline creat is 1.1 (records were reviewed). Since admission, 2.1>> 1.7>> 1.6>> 1.5>> 1.4 today This [place] is likely from underlying volume depletion in addition to the rhabdo Plan: Avoid nephrotoxins Continue IV fluids Follow BMP daily (6) Abrasions of multiple sites Conclusion/Plan: As per photos taken by nursing Plan: We will provide topical care where necessary We will also order medications for pain and cont his weekly Suboxone (7) Fall at home Conclusion/Plan: His C-spine and head were cleared with CT imaging. He then complained of left shoulder pain and shoulder images were done that showed no fracture or dislocation He is not orthostatic There is Hx that the patient needs to use a walker and keeps forgetting, which may lead to him having an unsteady gait causing the falls. I spoke to his caregiver, Mer to get details. EMS wrote that the patient had fallen 3 times in 24 hours, Mer corrected this and said he fell 3 times in 30 minutes; she came home and found him on the floor unable to get up because his head was stuck under the foot of his bed. She had to raise the bed to get him out, then she sat him up on his bed and he fell forward onto the floor. She then got him up again and sat him on the bed and he fell forward once more. This is when she called EMS. Plan: Tylenol 650 every 4 hours as needed, ibuprofen 600 mg p.o. every 6 hours as needed, and we are avoiding opiates Will stop orthostatic vital sign checks This problem of recurrent falls could lead to a need for long-term care placement, since he now has Hx of repeat falls at home (with his last admission, which was just 2 mos ago, he fell outside when he was not supervised, and this admission the initial fall was when he was unsupervised). Due to his poor judgement, and since the caregiver is not home all the time, we suspect he will now need 24/7 care. 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 (8) Buprenorphine dependence Conclusion/Plan: As per history, this is for chronic back pain. I am concerned that this may be over sedating him and adding to the falls. In addition, pharmacy learned today that his last prescription was written by his PCP 1 year ago, it was ordered for 13 weeks, so he should have run out many months ago, however there are still several patches available in the box that Mer brought from home. We therefore suspect that he was not getting patches on a routine scheduled basis, probably just haphazardly. Plan: Will not reorder buprenorphine patches q week (9) DM type 2 (diabetes mellitus, type 2) Conclusion/Plan: He is on metformin at home. His A1c came back very good at 6.3. Glucose the was 85, 117, 138, today he is 102, 164. He is controlled. Plan: Continue diabetic diet no metformin while he has MILTON Cont fingerstick checks, sliding scale regular insulin coverage and hypoglycemia protocol (10) Poor hygiene One of the examples Mer described to me was that she needs to wipe his gilliam after he eats because he is so messy. He is less able to feed himself over just this past year. His eyelashes have crusted debris. Unknown period of time that he was laying on the floor with his head under the bed, until Aurelia found him that way and needed to lift him. Plan continue gentamicin eyedrops (11) Abnormal EKG Conclusion/Plan: This patient has a remarkable EKG showing early R/S transition which could signify cor pulmonale. He had the same abnormal EKG findings 2 months ago on admission An Echo was done to check if he has cor pulmonale, and it showed: an essentially normal heart, with normal LV size and systolic function but grade 1 diastolic function present and normal RV size and function were seen. (12) Small rectal fissures Hydrocortisone mixture with lidocaine mixture and apply every 3-4 hours as needed
[2023-02-19] MEDS: HYDROCORTISONE 1% CREAM 28 GM TUBE TOP SCH ×2 (17:13→21:00)
[2023-02-19] MEDS: LIDOCAINE JELLY 2% 6 ML JEL.PF.APP TOP SCH ×2 (17:14→21:00)
[2023-02-19] MEDS: risperiDONE 1 MG TABLET PO SCH (20:54)
[2023-02-20] MEDS: SODIUM CHLORIDE 0.9% 1,000 ML IV SCH ×3 (01:26→16:34)
[2023-02-20] MEDS: SODIUM CHLORIDE FLUSH 0.9% 10 ML SYRINGE IVP SCH ×4 (01:32→23:18)
[2023-02-20] MEDS: HYDROCORTISONE 1% CREAM 28 GM TUBE TOP SCH ×3 (05:54→22:42)
[2023-02-20] MEDS: LIDOCAINE JELLY 2% 6 ML JEL.PF.APP TOP SCH ×3 (05:55→22:43)
[2023-02-20 05:58] LABS: CALCIUM 8.9 mg/dL (8.5-10.3); CREATININE 1.3 mg/dL (0.6-1.2); POTASSIUM 3.5 mmol/L (3.5-5.0)
[2023-02-20] MEDS: INSULIN LISPRO 300 UNIT/3 ML PEN SUBQ SCH ×4 (09:00→22:46)
[2023-02-20] MEDS: SENNA 8.6 MG TABLET PO SCH (09:01)
[2023-02-20] MEDS: FLUTICASONE NASAL SPRAY NAS SCH (09:01)
[2023-02-20] MEDS: DOCUSATE SODIUM 250 MG CAPSULE PO SCH (09:01)
[2023-02-20] MEDS: polyethylene glycoL 3350 17 GM PACKET PO SCH (09:01)
[2023-02-20] MEDS: MAGNESIUM OXIDE 400 MG TABLET PO SCH (09:02)
[2023-02-20] MEDS: ASPIRIN EC 81 MG TABLET PO SCH (09:02)
[2023-02-20] MEDS: risperiDONE 1 MG TABLET PO SCH ×2 (09:03→22:42)
[2023-02-20] MEDS: DULoxetine 30 MG CAPSULE PO SCH (09:03)
[2023-02-20] MEDS: MULTIVITAMIN W/MINERALS TABLET PO SCH (09:03)
[2023-02-20] MEDS: GENTAMICIN 0.3% OPHTH DROPS EACHEYE SCH ×2 (09:04→22:43)
[2023-02-20] MEDS: IBUPROFEN 600 MG TABLET PO PRN (15:07)
--- NOTE | 2023-02-20 17:16 | PROVIDER PROGRESS NOTE ---
Subjective - Prog Note Date Prog Note Date: 02/20/23 Prog Note Time: 17:14 - Subjective Subjective: Social work updated me on this patient's psychiatric history. She had been speaking to Mer, the patient's caregiver. Mer is adamant that patient cannot return to her home. He has been wandering out of the home and falling so she doesn't know how long he's down and he gets injured, he doesn't respond to her most of the time, can't feed himself, is incontinent, and needs a walker but a walker will not fit in the home. Mer observes there has been a significant increase in patient's symptoms over the past month. She stated he won't talk to her "because the Indidans in his head say Mer's evil". He also believes the Indians live in his rectum which is the reason he often pulls down his pants to check for them. He believes that they are stabbing him with knives or putting pianos in his rectum. He often engages with the hallucinations: yelling, mumbling, or trying to physically move them out of his way. He went to [facility] last year and had a brief improvement but it didn't last. He sees Dr. Lawrence at [facility] for psychiatry bu t the medication adjustments are not beneficial. Mer is experiencing severe caregiver burnout and feeling frustrated. She states she cannot safely care for patient at home if he is wandering, falling, and not responding to her. She is physically unable to pick him up and safely carry him. Mer also stated patient believes he broke his back several years ago. His back popped when doing PT exercises but there is no actual injury. Mer is agreeable to patient returning if he can engage more appropriately with her and is less impacted by his hallucinations. tea tree farm worker set expectations that if patient is admitted to an inpatient behavioral health hospital, the expectation will be for him to return home with her. Mer stated if patient is still unable to walk independently, wanders, and doesn't respond to her then he cannot return home safely. She is agreeable to visiting patient in hospital after [facility] adjustment to observe his progress before deciding to take him him. tea tree farm worker set additional expectations for Mer that if patient is refused to return home with her, he will stay in hospital for extended period of time while waiting for daughter to get guardianship for placement. She expresses understanding and will consider him returning home. Social work to follow The caregiver shared with social work that the patient has the idea that he has "Indians putting things into his body". Specifically shoving things in his rectum. Patient is still nearly mute. I know he can hear me, and he does respond to my commands every once in a while. Simple commands such as move your leg, or move your body, or show me your hand. When he does it, however, he is never looking at me in the face. He is usually staring off into space as he response to my request. He is eating 50 to 100% of his food. He does not independently. He is getting himself out of bed into the bedside commode does not have times a day. Current Medications - Current Medications Current Medications: Active Medications Acetaminophen (Acetaminophen 325 Mg Tablet) 650 mg PO Q4HR PRN PRN Reason: Pain or Fever > 38C (100.4F) Last Admin: 02/19/23 15:06 Dose: 650 mg Aspirin (Aspirin Ec 81 Mg Tablet) 81 mg PO DAILY [facility] Last Admin: 02/20/23 09:02 Dose: 81 mg Docusate Sodium (Docusate Sodium 250 Mg Capsule) 250 - 500 mg PO DAILY [facility] Last Admin: 02/20/23 09:01 Dose: 500 mg Duloxetine HCl (Duloxetine 30 Mg Capsule) 30 mg PO DAILY [facility] Last Admin: 02/20/23 09:03 Dose: 30 mg Fluticasone Propionate (Fluticasone Nasal [place]) 1 sprays CRISTIAN DAILY [facility] Last Admin: 02/20/23 09:01 Dose: 1 spr Gentamicin Sulfate (Gentamicin 0.3% Ophth Drops) 1 drops EACHEYE BID [facility] Last Admin: 02/20/23 09:04 Dose: 1 drops Hydrocortisone (Hydrocortisone 1% Cream 28 Gm Tube) 1 applic TOP TID [facility] Last Admin: 02/20/23 13:22 Dose: 1 applic Sodium Chloride (Normal Saline 0.9%) 1,000 mls @ 125 mls/hr IV .Q8H [facility] Last Admin: 02/20/23 16:34 Dose: 125 mls/hr Ibuprofen (Ibuprofen 600 Mg Tablet) 600 mg PO Q6HR PRN PRN Reason: MINOR PAIN Last Admin: 02/20/23 15:07 Dose: 600 mg Insulin Human Lispro (Insulin Lispro 300 Unit/3 Ml Pen) 1 - 5 unit SUBQ 0800,1200,1700,2100 [facility]; Protocol Last Admin: 02/20/23 16:58 Dose: Not Given Lidocaine HCl (Lidocaine Jelly 2% 6 Ml Jel.Pf.Shanda) 1 ml TOP TID [facility] Last Admin: 02/20/23 13:22 Dose: 1 ml Magnesium Oxide (Magnesium Oxide 400 Mg Tablet) 400 mg PO DAILYWM [facility] Last Admin: 02/20/23 09:02 Dose: 400 mg Multivitamins/Minerals (Multivitamin W/Minerals Tablet) 1 tab PO DAILYWM [facility] Last Admin: 02/20/23 09:03 Dose: 1 tab Ondansetron HCl (Ondansetron 4 Mg/2 Ml Vial) 4 mg IVP Q6HR PRN PRN Reason: Nausea / Vomiting Polyethylene Glycol (Polyethylene Glycol 3350 17 Gm Packet) 17 gm PO DAILY [facility] Last Admin: 02/20/23 09:01 Dose: 17 gm Risperidone (Risperidone 1 Mg Tablet) 3 mg PO BID [facility] Last Admin: 02/20/23 09:03 Dose: 3 mg Senna (Senna 8.6 Mg Tablet) 8.6 - 17.2 mg PO DAILY [facility] Last Admin: 02/20/23 09:01 Dose: 17.2 mg Sodium Chloride (Sodium Chloride Flush 0.9% 10 Ml Syringe) 10 ml IVP PRN PRN PRN Reason: NEEDED PER PROVIDER ORDERS Sodium Chloride (Sodium Chloride Flush 0.9% 10 Ml Syringe) 10 ml IVP 0100,0900,1700 [facility] Last Admin: 02/20/23 16:57 Dose: Not Given metFORMIN [Glucophage] 1,000 mg PO BIDWM 08/29/20 Aspirin [Aspirin EC] 81 mg PO DAILY 12/20/22 Atorvastatin Calcium [Lipitor] 80 mg PO HS 12/20/22 DULoxetine [Cymbalta] 60 mg PO DAILY 12/20/22 Fluticasone [Flonase] 1 sprays CRISTIAN DAILY 12/20/22 Gabapentin [Neurontin] 600 mg PO TID 12/20/22 risperiDONE [Risperdal] 3 mg PO BID 12/20/22 Buprenorphine 1 each TD Q7D PRN 12/21/22 Objective - Vital Signs/Intake & Output Reviewed Vital Signs: Yes Intake & Output: Intake & Output 02/17/23 02/18/23 02/19/23 02/20/23 23:59 23:59 23:59 23:59 Intake Total 3822.084 4089.000 4471.25 2352.917 Output Total 1999 1175 300 Balance 3727.372 7080.000 4171.25 2352.917 - Objective General Appearance: positive: Other (Flat affect, staring, nonverbal with me today) Eyes Bilateral: positive: PERRL, EOMI ENT: positive: No signs of dehydration, Other (He has an abrasion on his left religion. That is dry and healing.) Neck: positive: No JVD. negative: Stiff neck Respiratory: positive: No respiratory distress. negative: Wheezes, Rales, Rhonchi Cardiovascular: positive: Regular rate & rhythm Abdomen: positive: Non-tender, No organomegaly, Nml bowel sounds, No distention Skin: positive: Warm, Dry, Other (Abrasions on his knees, sides of his legs, forearms. These were all present on admission and as a result of him falling and laying on the ground Before admission.) Extremities: positive: Full ROM, No pedal edema Neurologic/Psychiatric: positive: CN's nml (2-12), Motor nml - Lab Results Fish Bones: 02/16/23 04:52 02/20/23 05:02 Other Labs: Lab Results x24hrs 02/20/23 Range/Units 05:02 Sodium 142 (135-145) mmol/L Potassium 3.5 (3.5-5.0) mmol/L Chloride 111 (101-111) mmol/L Carbon Dioxide 24 (21-32) mmol/L Anion Gap 7.0 (6-13) BUN 16 (6-20) mg/dL Creatinine 1.3 H (0.6-1.2) mg/dL Estimated GFR (MDRD) 57 L (>89) Glucose 106 H (70-100) mg/dL Calcium 8.9 (8.5-10.3) mg/dL Total Creatine Kinase 3369 H* (22-269) IU/L Assessment/Plan - Problem List (1) Rhabdomyolysis Impression: Related to the trauma of multiple ground-level falls and laying on the ground for unknown amount of time. He is improving. CPK on admission was 19,799>>5207>>63873>>9257>>8328>> 3369 today Nursing keeps on asking if I could stop his IV fluids. It makes it really difficult for them and that he is spontaneous about getting out of bed, and starts getting his IV tubing tangled. I asked if there is a way they could make sure that he gets at least 1 to 2 L of fluid intake a day and they do not think they can. Plan: Will continue with IV NS hydration. Having the IV is not convenient for his getting up and down, but he is not taking enough n.p.o. As such I will continue the IV normal saline. Follow CK daily My goal is not so much a normal CK but a normal creatinine. Once he has achieved a normal creatinine, even if his CK is high, he would be ready for discharge. A normal creatinine for him is 1.0-1.1. Qualifiers: Rhabdomyolysis type: traumatic (2) Left arm swelling The appearance is that of dependent edema, perhaps he laid on that arm when he slept. Ultrasound duplex Doppler was done on February 18 to make sure he did not have a DVT. That study was negative. (3) Catatonia Conclusion/Plan: Since admission, the patient just stares at hospitalist and other staff after being asked a question, and occasionally softly mumbles an answer, to what was asked 2 questions ago. Other staff have told me that he does the same thing with them and he does not participate in any discussions. He did initially keep asking when Mer will visit and she visited him on 02/17. I spoke to his caregiver, Mer in the room at his bedside on 02/17 and updated her. Mer told me by phone on 02/16 that he has worsened since 2010, goes to a psychiatrist, has had his psychiatric meds adjusted and we do have the current proper medication list. Mer said that when he stares at you. "it is because the people that are in his body do not like what they are hearing". Therefore, when he is staring, his symptoms are not under control. Mer said this is his catatonia. Mer said that the patient can no longer make decisions for himself, and she has to remind him and cue him multiple times to do something. She is working with the pt's daughter Christina, and the patient's registered nurse hh case manager, trying to get him permanent placement. At home he takes Risperdal 3 mg p.o. twice daily. That was resumed. But then discontinued due to sedation. February 11 7 February 19 he was unhappy and describing discomfort in his rectum or his back. On examination I saw some small linear fissures. He is still getting up as much as he did yesterday. I resumed his Risperdal 3 mg p.o. twice a day yesterday. Plan: Telepsych consult (4) Schizophrenia As in #3 (5) MILTON (acute kidney injury) Conclusion/Plan: On admission, he was visibly dehydrated clinically. His BUN/creat have improved from admission, since iv fluids were started. His baseline creat is 1.1 (records were reviewed). Since admission, 2.1>> 1.7>> 1.6>> 1.5>> 1.4>>1.3 today This Milton is likely from underlying volume depletion in addition to the rhabdo Plan: Avoid nephrotoxins Continue IV fluids until creatinine 1.1 Follow BMP daily (6) Abrasions of multiple sites Conclusion/Plan: As per photos taken by nursing Plan: We will provide topical care where necessary We will also order medications for pain and cont his weekly Suboxone (7) Fall at home Conclusion/Plan: Unclear why this gentleman keeps on falling at home. His caregiver wonders if he just forgets to use his walker and that is why he falls. So far his falls ar e witnessed. They are mechanical falls. There is no syncope. There is no orthostatic component to them. They are not seizures. Here, he is watched carefully by nursing. No falls. And he gets up multiple times out of bed. He initially had orthostatic vital signs being checked when he got here. Those have been discontinued. Social work is working closely with his caregiver. Trying to begin formulating some plans for this gentlemen's future. (8) Buprenorphine dependence Conclusion/Plan: As per history, this is for chronic back pain. I am concerned that this may be over sedating him and adding to the falls. In addition, pharmacy learned today that his last prescription was written by his PCP 1 year ago, it was ordered for 13 weeks, so he should have run out many months ago, however there are still several patches available in the box that Shante melissa brought from home. We therefore suspect that he was not getting patches on a routine scheduled basis, probably just haphazardly. Plan: Will not reorder buprenorphine patches q week (9) DM type 2 (diabetes mellitus, type 2) Conclusion/Plan: He is on metformin at home. His A1c came back very good at 6.3. Glucose February 19 was 102, 164, 103, 106. Glucose today is 105, 210, 96. Plan: Continue diabetic diet no metformin while he has MILTON Cont fingerstick checks, sliding scale regular insulin coverage and hypoglycemia protocol (10) Poor hygiene One of the examples Mer described to me was that she needs to wipe his gilliam after he eats because he is so messy. He is less able to feed himself over just this past year. His eyelashes have crusted debris. Unknown period of time that he was laying on the floor with his head under the bed, until KMarkat found him that way and needed to lift him. Plan continue gentamicin eyedrops (11) Abnormal EKG Conclusion/Plan: This patient has an abnromal EKG showing early R/S transition which could signify cor pulmonale. He had the same abnormal EKG findings 2 months ago on admission An Echo was done to check if he has cor pulmonale, and it showed: an essentially normal heart, with normal LV size and systolic function but grade 1 diastolic function present and normal RV size and function were seen. (12) Small rectal fissures Hydrocortisone mixture with lidocaine mixture and apply every 3-4 hours as needed was started 02/19 but he is not really able to tell me if this helps
[2023-02-21] MEDS: SODIUM CHLORIDE 0.9% 1,000 ML IV SCH ×3 (00:45→18:39)
[2023-02-21] MEDS: HYDROCORTISONE 1% CREAM 28 GM TUBE TOP SCH ×3 (06:57→21:43)
[2023-02-21] MEDS: LIDOCAINE JELLY 2% 6 ML JEL.PF.APP TOP SCH ×3 (06:57→21:43)
[2023-02-21] MEDS: INSULIN LISPRO 300 UNIT/3 ML PEN SUBQ SCH ×4 (08:04→21:40)
[2023-02-21] MEDS: DOCUSATE SODIUM 250 MG CAPSULE PO SCH (08:05)
[2023-02-21] MEDS: ASPIRIN EC 81 MG TABLET PO SCH (08:05)
[2023-02-21] MEDS: DULoxetine 30 MG CAPSULE PO SCH (08:05)
[2023-02-21] MEDS: risperiDONE 1 MG TABLET PO SCH (08:06)
[2023-02-21] MEDS: SENNA 8.6 MG TABLET PO SCH (08:06)
[2023-02-21] MEDS: MAGNESIUM OXIDE 400 MG TABLET PO SCH (08:07)
[2023-02-21] MEDS: MULTIVITAMIN W/MINERALS TABLET PO SCH (08:08)
[2023-02-21] MEDS: FLUTICASONE NASAL SPRAY NAS SCH (08:08)
[2023-02-21] MEDS: GENTAMICIN 0.3% OPHTH DROPS EACHEYE SCH ×2 (08:09→21:40)
[2023-02-21] MEDS: polyethylene glycoL 3350 17 GM PACKET PO SCH (08:20)
[2023-02-21] MEDS: SODIUM CHLORIDE FLUSH 0.9% 10 ML SYRINGE IVP SCH ×3 (08:21→23:38)
[2023-02-21] MEDS ORDERED: OLANZapine 10 MG VIAL IM ONE (08:30)
[2023-02-21 09:06] LABS: CALCIUM 8.5 mg/dL (8.5-10.3); CREATININE 1.3 mg/dL (0.6-1.2); POTASSIUM 3.3 mmol/L (3.5-5.0)
--- NOTE | 2023-02-21 13:07 | PROVIDER PROGRESS NOTE ---
Subjective - Prog Note Date Prog Note Date: 02/21/23 Prog Note Time: 13:05 - Subjective Subjective: Increasingly agitated. Is getting up dozens and dozens of times out of the bed to sit on the bedside commode or try to go to the toilet. With that he stre tches the IV pole and the IV to the greatest extent before nurses catch him. So far he has not pulled out his IV this way but has come close. We have come close to stopping IV fluids because his CPK and his creatinine are improving. But he needs to be able to take in enough oral intake. He is eating food, but not drinking enough. Its become a balance between his safety with the IV pole and the IV versus just taking it out. He keeps on telling us that his penis hurts or his penile area hurts. This morning he could not stop pacing in the room and I gave him Zyprexa 5 mg. He was able to get back in bed, and has been laying quietly. He is mute. But that is his usual communication. When I asked him permission to examine his abdomen he did not say yes or no. But in examining him, he winced when I palpated lower abdomen and suprapubic area. Bladder scan was done and he only has 160 cc in the bladder. As I was examining him he said "it hurts over here" and then he pointed to his right upper quadrant. But when I palpated his right upper quadrant, I think I am feeling bowel but not liver. No rebound no guarding no tenderness. With all of this, the patient's vitals are normal. He is slightly hypertensive. He has not had any fevers. Current Medications - Current Medications Current Medications: Active Medications Generic Name Dose Route Start Last Admin Trade Name Zohaibq PRN Reason Stop Dose Admin Acetaminophen 650 mg 02/15/23 19:57 02/19/23 15:06 Acetaminophen 325 Mg Tablet PO 650 mg Q4HR PRN Administration Pain or Fever > 38C (100.4F) Aspirin 81 mg 02/18/23 09:00 02/21/23 08:05 Aspirin Ec 81 Mg Tablet PO 81 mg DAILY ANGELA Administration Docusate Sodium 250 - 500 mg 02/18/23 11:00 02/21/23 08:05 Docusate Sodium 250 Mg Capsule PO 250 mg DAILY ANGELA Administration Duloxetine HCl 30 mg 02/15/23 13:30 02/21/23 08:05 Duloxetine 30 Mg Capsule PO 30 mg DAILY ANGELA Administration Fluticasone Propionate 1 sprays 02/17/23 09:00 02/21/23 08:08 Fluticasone Nasal [place] CRISTIAN 1 spr DAILY ANGELA Administration Gentamicin Sulfate 1 drops 02/16/23 21:00 02/21/23 08:09 Gentamicin 0.3% Ophth Drops EACHEYE 1 drops BID ANGELA Administration Hydrocortisone 1 applic 02/19/23 17:00 02/21/23 06:57 Hydrocortisone 1% Cream 28 Gm Tube TOP Not Given TID ANGELA Sodium Chloride 1,000 mls @ 125 mls/hr 02/14/23 12:00 02/21/23 10:35 Normal Saline 0.9% IV 125 mls/hr .Q8H ANGELA Administration Ibuprofen 600 mg 02/15/23 19:57 02/20/23 15:07 Ibuprofen 600 Mg Tablet PO 600 mg Q6HR PRN Administration MINOR [employer]IN Insulin Human Lispro 1 - 5 unit 02/14/23 12:00 02/21/23 12:17 Insulin Lispro 300 Unit/3 Ml Pen SUBQ 1 unit 0800,1200,1700,2100 ANGELA Administration Protocol Lidocaine HCl 1 ml 02/19/23 17:00 02/21/23 06:57 Lidocaine Jelly 2% 6 Ml Jel.Pf.Shanda TOP Not Given TID ANGELA Magnesium Oxide 400 mg 02/16/23 08:00 02/21/23 08:07 Magnesium Oxide 400 Mg Tablet PO 400 mg DAILYWM ANGELA Administration Multivitamins/Minerals 1 tab 02/18/23 09:00 02/21/23 08:08 Multivitamin W/Minerals Tablet PO 1 tab DAILYWM ANGELA Administration Ondansetron HCl 4 mg 02/14/23 11:26 Ondansetron 4 Mg/2 Ml Vial IVP Q6HR PRN Nausea / Vomiting Polyethylene Glycol 17 gm 02/17/23 18:00 02/21/23 08:20 Polyethylene Glycol 3350 17 Gm Packet PO 17 gm DAILY ANGELA Administration Risperidone 3 mg 02/19/23 21:00 02/21/23 08:06 Risperidone 1 Mg Tablet PO 3 mg BID ANGELA Administration Senna 8.6 - 17.2 mg 02/18/23 11:00 02/21/23 08:06 Senna 8.6 Mg Tablet PO 8.6 mg DAILY ANGELA Administration Sodium Chloride 10 ml 02/14/23 11:26 Sodium Chloride Flush 0.9% 10 Ml Syringe IVP PRN PRN NEEDED PER PROVIDER ORDERS Sodium Chloride 10 ml 02/14/23 17:00 02/21/23 08:21 Sodium Chloride Flush 0.9% 10 Ml Syringe IVP 10 ml 0100,0900,1700 ANGELA Administration metFORMIN [Glucophage] 1,000 mg PO BIDWM 08/29/20 Aspirin [Aspirin EC] 81 mg PO DAILY 12/20/22 Atorvastatin Calcium [Lipitor] 80 mg PO HS 12/20/22 DULoxetine [Cymbalta] 60 mg PO DAILY 12/20/22 Fluticasone [Flonase] 1 sprays CRISTIAN DAILY 12/20/22 Gabapentin [Neurontin] 600 mg PO TID 12/20/22 risperiDONE [Risperdal] 3 mg PO BID 12/20/22 Buprenorphine 1 each TD Q7D PRN 12/21/22 Objective - Vital Signs/Intake & Output Reviewed Vital Signs: Yes Vital Signs: Vital Signs x48h Temp Pulse Resp BP Pulse Ox 02/21/23 08:00 36.8 C 95 18 159/69 H 97 Intake & Output: Intake & Output 02/18/23 02/19/23 02/20/23 02/21/23 23:59 23:59 23:59 23:59 Intake Total 4089.000 4471.25 2472.917 2130 Output Total 1175 300 Balance 2914.000 4171.25 2472.917 2130 - Objective General Appearance: positive: No acute distress (Mildly overweight middle-age male, with abrasions on voodoo, hands, toes and knees from his previous falls before the hospitalization), Alert (His alertness is deceptive. When you walk in the room he will be laying flat on his back, eyes closed, and not responding to voice or to touch. You will leave the room, and then nursing reports that he is back out of bed, going to the bathroom. I have only managed to get 2 sentences out of him.), Other (But sentences were appropriate and in context of what I asked) Eyes Bilateral: positive: PERRL, EOMI ENT: positive: No signs of dehydration Neck: positive: No JVD. negative: Stiff neck Respiratory: positive: No respiratory distress. negative: Wheezes, Rales, Rhonchi Cardiovascular: positive: Regular rate & rhythm Abdomen: positive: No organomegaly, Nml bowel sounds, No distention, Tenderness (Is really not able to be confirmed. He involuntarily moves when I palpate his bilateral lower quadrants and suprapubic area. But he does not tell me it hurts. Where he did tell me it hurt, right upper quadrant, there is no wincing, no grimacing of pain, no withdrawal). negative: Guarding, Rebound Skin: positive: Warm, Dry Extremities: positive: Full ROM, No pedal edema Neurologic/Psychiatric: positive: CN's nml (2-12), Motor nml - Lab Results Fish Bones: 02/16/23 04:52 02/21/23 08:42 Other Labs: Lab Results x24hrs 02/21/23 02/21/23 Range/Units 08:42 05:42 Sodium 141 (135-145) mmol/L Potassium 3.3 L (3.5-5.0) mmol/L Chloride 111 (101-111) mmol/L Carbon Dioxide 25 (21-32) mmol/L Anion Gap 5.0 L (6-13) BUN 12 (6-20) mg/dL Creatinine 1.3 H (0.6-1.2) mg/dL Estimated GFR (MDRD) 57 L (>89) Glucose 117 H (70-100) mg/dL Calcium 8.5 (8.5-10.3) mg/dL Total Creatine Kinase 1581 H* (22-269) IU/L Assessment/Plan - Problem List (1) Rhabdomyolysis Impression: Related to the trauma of multiple ground-level falls and laying on the ground for unknown amount of time. He has been falling for months now. Started about 7 or 8 months. Unknown reasons why he is falling. Sometimes his caregiver has left to go to work when it happens and he lays on the ground for a few hours until she is able to get home. He is improving. CPK on admission was 19,799>>5207>>[id number]>>9257>>8328>> 3369>>1581 today Nursing keeps on asking if I could stop his IV fluids. It makes it really difficult for them and that he is spontaneous about getting out of bed, and starts getting his IV tubing tangled. I asked if there is a way they could make sure that he gets at least 1 to 2 L of fluid intake a day and they do not think they can. But today he is even more agitated than usual. He will not stop getting out of bed. He is not ataxic, they are not worried about falling, they are worried about him pulling out the IV. Plan: Stop IV, stop IV fluids. Follow CK daily My goal is not so much a normal CK but a normal creatinine. Labs have not been drawn yet, and I will review those when they come in. Yesterday his creatinine was 1.3 and I am hoping it is better today. Qualifiers: Rhabdomyolysis type: traumatic (2) Left arm swelling The appearance is that of dependent edema, perhaps he laid on that arm when he slept. Ultrasound duplex Doppler was done on February 18 to make sure he did not have a DVT. That study was negative. He continues to have left arm edema and left hand edema. But there is no redness, no heat. He can flex and extend at the elbow and at the wrist. Fingers look like sausages. Skin is pink. Good capillary refill. Temperature of the arm and the hand is normal. (3) Catatonia Conclusion/Plan: Since admission, the patient just stares at hospitalist and other staff after being asked a question, and occasionally softly mumbles an answer, to what was asked 2 questions ago. Other staff have told me that he does the same thing with them and he does not participate in any discussions. He did initially keep asking when Mer will visit and she visited him on 02/17. Hospitalist spoke to his caregiver, Mer in the room at his bedside on 02/17 and updated her. Mer by phone on 02/16 stated that he has worsened since 2010, goes to a psychiatrist, has had his psychiatric meds adjusted and we do have the current proper medication list. Mer said that when he stares at you. "it is because the people that are in his body do not like what they are hearing". Therefore, when he is staring, his symptoms are not under control. Mer said this is his catatonia. Mer said that the patient can no longer make decisions for himself, and she has to remind him and cue him multiple times to do something. She is working with the pt's daughter Christina, and the patient's high risk case manager, trying to get him permanent placement. At home he takes Risperdal 3 mg p.o. twice daily. That was resumed. But then discontinued due to sedation. February 11 7 February 19 he was unhappy and describing discomfort in his rectum or his back. On examination I saw some small linear fissures. He is still getting up as much as he did yesterday. I resumed his Risperdal 3 mg p.o. twice a day 02/19 and not improved. I had initially to order telepsych 2 days ago. But through miscommunication nursing had not followed through on that. I think the nursing on day shift did not realize that it was their responsibility to make it happen. Today I spoke to Dr. Lawrence, his psychiatrist. She is [phone]. She said that she has been seeing him off and on for over a year, remotely, over Zoom. She last saw him on Zoom May 2022 right before she went on maternity leave. Before she went on maternity leave, he was functioning well. Minimal psychosis. Mild depression. He was on sertraline. She came back from maternity leave and immediately noticed that he had a substantial change 6 to 7 months later. He was hallucinating, falling, having episodes of defecation and urination all over the floor in his house. He felt that aliens, or Indians, or other individuals in his life were putting stuff up his rectum and he was desperate to pull it out but he just could not pull them out. At that time he was using excessive, excessive cannabis so they had him stop it for 2 months and he did not get any better. No clear reason of why he was falling. He then started sliding into being mute. Unresponsive. 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 Seroquel had no effect, benzodiazepines for the mutism had no effect, sertraline had no effect. He then started getting extraparametal signs on Risperdal 3 mg p.o. 3 times daily so she decreased it to 3 mg twice daily. In spite of all this, the muteness has become more and more predominant. Benzodiazepines usually help but Ativan did not help. So what I am describing to her is exactly what she was seen. She was in the process of speaking to his employment evaluator/case manager. They were working on a more intensive environment and placement for him because he was not going to be able to succeed living at home with his acute care physician/ex-girlfriend. The employment evaluator/case manager is named Mikaela Irving and her number is [phone], extension [phone]. Dr. Lawrence does feel that the patient would benefit from an inpatient stay. But his caregiver says that did not work a year ago. He was only okay for a couple of days and then he started regressing again. However Dr. Lawrence feels that stabilization of his mood, and his psychosis would be beneficial before he is placed in any permanent residential situation. Plan: Cancel telepsych consult She agreed with my use of Zyprexa today. He was so agitated I gave him Zyprexa 5 mg IM and he did well with that. She wonders if we could also try sublingual Ativan to help with the mutism. The Zyprexa should not be more than 5 mg twice daily. Continue the sertraline. Do not increase Risperdal beyond the 3 mg p.o. twice daily. (4) Schizophrenia As in #3 He has a very specific delusional thought process. But I want to make sure that I am not missing anything that is organic. He is very fixated on his rectum, and very fixated on bowel movements. Today's abdominal exam is negative. Even though he pointed me to his right upper quadrant, there is no rebound, no gu arding. The most I feel an abdominal exam is possible stool in the bowel. He does not have urinary retention. (5) ANGELO (acute kidney injury) Conclusion/Plan: On admission, he was visibly dehydrated clinically. His BUN/creat have improved from admission, since iv fluids were started. His baseline creat is 1.1 (records were reviewed). Since admission, 2.1>> 1.7>> 1.6>> 1.5>> 1.4>>1.3 02/20 This Angelo is likely from underlying volume depletion in addition to the rhabdo Plan: Avoid nephrotoxins Stop IV fluids today because he keeps on pulling on the IV tubing. Recheck creatinine today to make sure it is staying below 1.3. I have personally spoken to nursing and asked her to please encourage as much water intake as he would take. Follow BMP daily (6) Abrasions of multiple sites Conclusion/Plan: As per photos taken by nursing Plan: We will provide topical care where necessary We will also order medications for pain and cont his weekly Suboxone (7) Fall at home Conclusion/Plan: Unclear why this gentleman keeps on falling at home. His caregiver wonders if he just forgets to use his walker and that is why he falls. So far his falls are witnessed. They are mechanical falls. There is no syncope. There is no orthostatic component to them. They are not seizures. Here, he is watched carefully by nursing. No falls. And he gets up multiple times out of bed. He initially had orthostatic vital signs being checked when he got here. Those have been discontinued. Social work is working closely with his caregiver. Trying to begin formulating some plans for this gentlemen's future. I will forward the contact for his employment evaluator/case manager, Mikaela, to them. (8) Buprenorphine dependence Conclusion/Plan: As per history, this is for chronic back pain. I am concerned that this may be over sedating him and adding to the falls. In addition, pharmacy learned today that his last prescription was written by his PCP 1 year ago, it was ordered for 13 weeks, so he should have run out many months ago, however there are still several patches available in the box that Mer brought from home. We therefore suspect that he was not getting patches on a routine scheduled basis, probably just haphazardly. Plan: Will not reorder buprenorphine patches q week (9) DM type 2 (diabetes mellitus, type 2) Conclusion/Plan: He is on metformin at home. His A1c came back very good at 6.3. Glucose yesterday was 105, 210, 96, 166. Glucose today is 127 and 152. Plan: Continue diabetic diet no metformin while he has ANGELO Cont fingerstick checks, sliding scale regular insulin coverage and hypoglycemia protocol (10) Poor hygiene One of the examples Mer described to me was that she needs to wipe his gilliam after he eats because he is so messy. He is less able to feed himself over just this past year. His eyelashes have crusted debris. Unknown period of time that he was laying on the floor with his head under the bed, until K.at found him that way and needed to lift him. Plan continue gentamicin eyedrops (11) Abnormal EKG Conclusion/Plan: This patient has an abnromal EKG showing early R/S transition which could signify cor pulmonale. He had the same abnormal EKG findings 2 months ago on admission An Echo was done to check if he has cor pulmonale, and it showed: an essentially normal heart, with normal LV size and systolic function but grade 1 diastolic function present and normal RV size and function were seen. (12) Small rectal fissures Hydrocortisone mixture with lidocaine mixture and apply every 3-4 hours as needed was started 02/19 but he is not really able to tell me if this helps
[2023-02-21] MEDS ORDERED: POTASSIUM CHLORIDE 20 MEQ TABLET PO ONE (16:08)
[2023-02-21] MEDS ORDERED: OLANZapine 10 MG VIAL IM SCH (21:00)
[2023-02-21] MEDS: LORazepam 0.5 MG TABLET SL SCH (21:40)
[2023-02-22] MEDS: SODIUM CHLORIDE 0.9% 1,000 ML IV SCH ×2 (03:16→11:17)
[2023-02-22] MEDS: HYDROCORTISONE 1% CREAM 28 GM TUBE TOP SCH ×4 (06:35→21:40)
[2023-02-22] MEDS: LIDOCAINE JELLY 2% 6 ML JEL.PF.APP TOP SCH ×4 (06:35→21:40)
[2023-02-22 08:04] LABS: CALCIUM 8.4 mg/dL (8.5-10.3); CREATININE 1.3 mg/dL (0.6-1.2); POTASSIUM 3.4 mmol/L (3.5-5.0)
--- NOTE | 2023-02-22 08:18 | PROVIDER PROGRESS NOTE ---
Subjective - Prog Note Date Prog Note Date: 02/22/23 Prog Note Time: 13:07 - Subjective Subjective: This morning, he was laying quietly in bed. Eyes were open. He was watching the TV. Up until now this gentleman would lay in bed, eyes open and staring at the ceiling or staring at nothing at all. Not only was he watching TV, when I said blanca his eyes turned to me to look at me. He did not say anything but he watched me walk to his bed and he watched me examine him. He is making eye contact. The nurse reported that he said a couple of sentences to her this morning. And later this morning and early afternoon he was on the phone talking to his girlfriend. He is still able to feed himself, and is able to get out of bed to go to the bathroom. Current Medications - Current Medications Current Medications: Active Medications Acetaminophen (Acetaminophen 325 Mg Tablet) 650 mg PO Q4HR PRN PRN Reason: Pain or Fever > 38C (100.4F) Last Admin: 02/19/23 15:06 Dose: 650 mg Aspirin (Aspirin Ec 81 Mg Tablet) 81 mg PO DAILY [facility] Last Admin: 02/22/23 08:49 Dose: 81 mg Docusate Sodium (Docusate Sodium 250 Mg Capsule) 250 - 500 mg PO DAILY [facility] Last Admin: 02/22/23 08:50 Dose: 250 mg Duloxetine HCl (Duloxetine 30 Mg Capsule) 30 mg PO DAILY [facility] Last Admin: 02/22/23 08:48 Dose: 30 mg Fluticasone Propionate (Fluticasone Nasal [place]) 1 sprays CRISTIAN DAILY [facility] Last Admin: 02/22/23 08:50 Dose: 1 spr Gentamicin Sulfate (Gentamicin 0.3% Ophth Drops) 1 drops EACHEYE BID [facility] Last Admin: 02/22/23 08:51 Dose: 1 drops Haloperidol (Haloperidol 5 Mg/Ml Vial) 2 mg IM DAILY PRN PRN Reason: Agitation Hydrocortisone (Hydrocortisone 1% Cream 28 Gm Tube) 1 applic TOP TID [facility] Last Admin: 02/22/23 06:35 Dose: Not Given Sodium Chloride (Normal Saline 0.9%) 1,000 mls @ 125 mls/hr IV .Q8H [facility] Last Admin: 02/22/23 11:17 Dose: 125 mls/hr Ibuprofen (Ibuprofen 600 Mg Tablet) 600 mg PO Q6HR PRN PRN Reason: MINOR PAIN Last Admin: 02/20/23 15:07 Dose: 600 mg Insulin Human Lispro (Insulin Lispro 300 Unit/3 Ml Pen) 1 - 5 unit SUBQ 0800,1200,1700,2100 [facility]; Protocol Last Admin: 02/22/23 11:17 Dose: Not Given Lidocaine HCl (Lidocaine Jelly 2% 6 Ml Jel.Pf.Shanda) 1 ml TOP TID [facility] Last Admin: 02/22/23 06:35 Dose: Not Given Lorazepam (Lorazepam 0.5 Mg Tablet) 0.5 mg SL BID [facility] Last Admin: 02/22/23 08:48 Dose: 0.5 mg Magnesium Oxide (Magnesium Oxide 400 Mg Tablet) 400 mg PO DAILYWM [facility] Last Admin: 02/22/23 08:49 Dose: 400 mg Multivitamins/Minerals (Multivitamin W/Minerals Tablet) 1 tab PO DAILYWM [facility] Last Admin: 02/22/23 08:48 Dose: 1 tab Olanzapine (Olanzapine 10 Mg Vial) 5 mg IM BID [facility] Ondansetron HCl (Ondansetron 4 Mg/2 Ml Vial) 4 mg IVP Q6HR PRN PRN Reason: Nausea / Vomiting Polyethylene Glycol (Polyethylene Glycol 3350 17 Gm Packet) 17 gm PO DAILY [facility] Last Admin: 02/22/23 08:50 Dose: 17 gm Senna (Senna 8.6 Mg Tablet) 8.6 - 17.2 mg PO DAILY [facility] Last Admin: 02/22/23 08:49 Dose: 8.6 mg Sodium Chloride (Sodium Chloride Flush 0.9% 10 Ml Syringe) 10 ml IVP PRN PRN PRN Reason: NEEDED PER PROVIDER ORDERS Sodium Chloride (Sodium Chloride Flush 0.9% 10 Ml Syringe) 10 ml IVP 01 00,0900,1700 [facility] Last Admin: 02/22/23 08:52 Dose: Not Given Sterile Water (Water For Injection,Sterile 10 Ml Vial) 2.1 ml MC BID [facility] metFORMIN [Glucophage] 1,000 mg PO BIDWM 08/29/20 Aspirin [Aspirin EC] 81 mg PO DAILY 12/20/22 Atorvastatin Calcium [Lipitor] 80 mg PO HS 12/20/22 DULoxetine [Cymbalta] 60 mg PO DAILY 12/20/22 Fluticasone [Flonase] 1 sprays CRISTIAN DAILY 12/20/22 Gabapentin [Neurontin] 600 mg PO TID 12/20/22 risperiDONE [Risperdal] 3 mg PO BID 12/20/22 Buprenorphine 1 each TD Q7D PRN 12/21/22 Objective - Vital Signs/Intake & Output Reviewed Vital Signs: Yes Vital Signs: Vital Signs x48h Temp Pulse Resp BP BP Pulse Ox 02/22/23 07:31 36.9 C 69 18 155/76 H 97 02/22/23 00:33 36.2 C L 77 15 140/78 H 99 Intake & Output: Intake & Output 02/19/23 02/20/23 02/21/23 02/22/23 23:59 23:59 23:59 23:59 Intake Total 4471.25 2472.917 3670 990 Output Total 300 875 Balance 4171.25 2472.917 2795 990 - Objective General Appearance: positive: No acute distress, Other (Eyes open and watchful. He is listening to us.) Eyes Bilateral: positive: PERRL, EOMI ENT: positive: Pharynx nml Neck: positive: No JVD. negative: Stiff neck Respiratory: positive: No respiratory distress. negative: Wheezes, Rales, Rhonchi Cardiovascular: positive: Regular rate & rhythm Abdomen: positive: Non-tender, No organomegaly, Nml bowel sounds, No distention, Other (Small, easily reducible umbilical hernia) Skin: positive: Warm, Dry, Other (The various abrasions that he came in with on admission are all dried, healing. There is no active cellulitis of anything including the temporal abrasion, abrasions on his forearms, abrasions on his knees) Extremities: positive: Non-tender, Full ROM, No pedal edema Neurologic/Psychiatric: positive: CN's nml (2-12), Motor nml, Other (As already stated, today is the first time he has looked me in the eyes. Appears to be pro cessing what I am telling him. And is formed complete sentences to speak to nursing and to his girlfriend. I am unable to assess if he knows where he is, why he is here.) - Lab Results Fish Bones: 02/16/23 04:52 02/22/23 07:38 Other Labs: Lab Results x24hrs 03/31/23 03/30/23 Range/Units 07:38 08:42 Sodium 142 141 (135-145) mmol/L Potassium 3.4 L 3.3 L (3.5-5.0) mmol/L Chloride 110 111 (101-111) mmol/L Carbon Dioxide 25 25 (21-32) mmol/L Anion Gap 7.0 5.0 L (6-13) BUN 11 12 (6-20) mg/dL Creatinine 1.3 H 1.3 H (0.6-1.2) mg/dL Estimated GFR (MDRD) 57 L 57 L (>89) Glucose 114 H 117 H (70-100) mg/dL Calcium 8.4 L 8.5 (8.5-10.3) mg/dL Total Creatine Kinase 680 H (22-269) IU/L Assessment/Plan - Problem List (1) Major depressive disorder, recurrent, severe with psychotic symptoms Impression: He is almost mute and exhibits Catatonia Since admission, the patient just stares at hospitalist and other staff after being asked a question, and occasionally softly mumbles an answer, to what was asked 2 questions ago. Other staff have told me that he does the same thing with them and he does not participate in any discussions. He did initially keep asking when Mer will visit and she visited him on 02/17. Hospitalist spoke to his caregiver, Mer in the room at his bedside on 02/17 and updated her. Mer by phone on 02/16 stated that he has worsened since 2010, goes to a psychiatrist, has had his psychiatric meds adjusted and we do have the current proper medication list. Mer said that when he stares at you. "it is because the people that are in his body do not like what they are hearing". Therefore, when he is staring, his symptoms are not under control. Mer said this is his catatonia. Mer said that the patient can no longer make decisions for himself, and she has to remind him and cue him multiple times to do something. She is working with the pt's daughter Christina, and the patient's disease case manager, trying to get him permanent placement. At home he takes Risperdal 3 mg p.o. twice daily. That was resumed. But then discontinued due to sedation. February 11February 19 he was unhappy and describing discomfort in his rectum or his back. On examination I saw some small linear fissures. He is still getting up as much as he did yesterday. I resumed his Risperdal 3 mg p.o. twice a day 02/19 and not improved. I had initially to order telepsych 02/19 But through miscommunication, nursing had not followed through on that. I think the nursing on day shift did not realize that it was their responsibility to make it happen. 02/[address] Lawrence, his psychiatrist. She is [phone]. She said that she has been seeing him off and on for over a year, remotely, over Zoom. She last saw him on Zoom May 2022 right before she went on maternity leave. Before she went on maternity leave, he was functioning well. Minimal psychosis. Mild depression. He was on sertraline. She came back from maternity leave and immediately noticed that he had a substantial change 6 to 7 months later. He was hallucinating, falling, having episodes of defecation and urination all over the floor in his house. He felt that aliens, or Indians, or other individuals in his life were putting stuff up his rectum and he was desperate to pull it out but he just could not pull them out. At that time he was using excessive, excessive cannabis so they had him stop it for 2 months and he did not get any better. No clear reason of why he was falling. He then started sliding into b ei mute. Unresponsive. 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 Seroquel had no effect, benzodiazepines for the mutism had no effect, sertraline had no effect. He then started getting extraparametal signs on Risperdal 3 mg p.o. 3 times daily so she decreased it to 3 mg twice daily. In spite of all this, the muteness has become more and more predominant. Benzodiazepines usually help but Ativan did not help. So what I am describing to her is exactly what she was seen. She was in the process of speaking to his case coordinator. 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 The case coordinator is named Mikaela Irving and her number is [phone], extension [phone]. Dr. Lawrence does feel that the patient would benefit from an inpatient stay. But his caregiver says that did not work a year ago. He was only okay for a cou ple of days and then he started regressing again. However Dr. Lawrence feels that stabilization of his mood, and his psychosis would be beneficial before he is placed in any permanent residential situation. Yesterday, February 21, I gave him Zyprexa as he increasingly spiraled with his agitation of going to the bathroom, getting out of bed with the IV pole in place. It seems to have helped. He slept for a few hours, and was quiet for the rest of the afternoon. Last night around 3 in the morning he did require intervention. This morning he is looking at me, and is more aware of his environment, is not agitated, and actually speaking full sentences. Plan: Continue Zyprexa 5 mg IM. Psychiatry suggested it to be twice daily. I will increase it to twice daily. Continue Ativan sublingual twice daily 0.5 mg. Add Haldol 2 mg IM to the middle of the night as needed if he has breakthrough. Risperdal has been discontinued So as to avoid extraparametal side effects Continue Cymbalta 60 mg daily (2) Rhabdomyolysis Resolved and I believe he is a new baseline creatinine. CPK on admission was 19,799>>[id number]>>[id number]>>9257>>8328>> 3369>>1581>>680 today Nursing keeps on asking if I could stop his IV fluids. It makes it really difficult for them in that he is spontaneous about getting out of bed, and starts getting his IV tubing tangled. I asked if there is a way they could make sure that he gets at least 1 to 2 L of fluid intake a day and they do not think they can. But today he is even more agitated than usual. He will not stop getting out of bed. He is not ataxic, they are not worried about falling, they are worried about him pulling out the IV. IVF stopped 02/21. Plan: continue to encourage liquid po intake. Qualifiers: Rhabdomyolysis type: traumatic (3) Left arm swelling The appearance is that of dependent edema, perhaps he laid on that arm when he slept. Ultrasound duplex Doppler was done on February 18 to make sure he did not have a DVT. That study was negative. He continues to have left arm edema and left hand edema. But there is no redness, no heat. He can flex and extend at the elbow and at the wrist. Fingers look like sausages. Skin is pink. Good capillary refill. Temperature of the arm and the hand is normal. (4) ANGELO (acute kidney injury)/hypokalemia Conclusion/Plan: On admission, he was visibly dehydrated clinically. His BUN/creat have improved from admission, since iv fluids were started. His baseline creat is 1.1 (records were reviewed). Since admission, 2.1>> 1.7>> 1.6>> 1.5>> 1.4>>1.3 since 02/20. This creatintine may be his new baseline. This Angelo is likely from underlying volume depletion in addition to the rhabdo. IVF stopped 02/21 Plan: Avoid nephrotoxins I have personally spoken to nursing and asked her to please encourage as much water intake as he would take. Follow BMP daily For potassium of 3.4, potassium rider 10 mEq and 100 mils, 4 riders. Recheck potassium tomorrow (5) Abrasions of multiple sites Conclusion/Plan: As per photos taken by nursing Plan: We will provide topical care where necessary We will also order medications for pain and cont his weekly Suboxone (6) Fall at home Conclusion/Plan: Unclear why this gentleman keeps on falling at home. His caregiver wonders if he just forgets to use his walker and that is why he falls. So far his falls are witnessed. They are mechanical falls. There is no syncope. There is no orthostatic component to them. They are not seizures. Here, he is watched carefully by nursing. No falls. And he gets up multiple times out of bed. He initially had orthostatic vital signs being checked when he got here. Those have been discontinued. Social work is working closely with his caregiver. Trying to begin formulating some plans for this gentlemen's future. I will forward the contact for his case coordinator, Mikaela, to them. (7) Buprenorphine dependence Conclusion/Plan: As per history, this is for chronic back pain. I am concerned that this may be over sedating him and adding to the falls. In addition, pharmacy learned today that his last prescription was written by his PCP 1 year ago, it was ordered for 13 weeks, so he should have run out many months ago, however there are still several patches available in the box that Mer brought from home. We therefore suspect that he was not getting patches on a routine scheduled basis, probably just haphazardly. Plan: Will not reorder buprenorphine patches q week (8) DM type 2 (diabetes mellitus, type 2) Conclusion/Plan: He is on metformin at home. His A1c came back very good at 6.3. Glucose yesterday 127, 152, 103, 160. Today he is 88, 138. He has been very stable on sliding scale. He is now without IV fluids. Plan: Continue diabetic diet Continue fingersticks only in the morning Resume metformin 500 mg po ac bid (9) Poor hygiene One of the examples Mer described to me was that she needs to wipe his gilliam after he eats because he is so messy. He is less able to feed himself over just this past year. His eyelashes have crusted debris. Unknown period of time that he was laying on the floor with his head under the bed, until Aurelia found him that way and needed to lift him. Today he will be completing 6 days of Garamycin eyedrops. Plan Stop Garamycin eyedrops tomorrow when he completes 7 days of therapy. (10) Abnormal EKG Conclusion/Plan: This patient has an abnromal EKG showing early R/S transition which could signify cor pulmonale. He had the same abnormal EKG findings 2 months ago on admission An Echo was done to check if he has cor pulmonale, and it showed: an essentially normal heart, with normal LV size and systolic function but grade 1 diastolic function present and normal RV size and function were seen. (11) Small rectal fissures Hydrocortisone mixture with lidocaine mixture and apply every 3-4 hours as needed was started 02/19 but he is not really able to tell me if this helps
[2023-02-22] MEDS: INSULIN LISPRO 300 UNIT/3 ML PEN SUBQ SCH ×2 (08:45→11:17)
[2023-02-22] MEDS: DULoxetine 30 MG CAPSULE PO SCH (08:48)
[2023-02-22] MEDS: LORazepam 0.5 MG TABLET SL SCH ×2 (08:48→21:35)
[2023-02-22] MEDS: MULTIVITAMIN W/MINERALS TABLET PO SCH (08:48)
[2023-02-22] MEDS: SENNA 8.6 MG TABLET PO SCH (08:49)
[2023-02-22] MEDS: MAGNESIUM OXIDE 400 MG TABLET PO SCH (08:49)
[2023-02-22] MEDS: ASPIRIN EC 81 MG TABLET PO SCH (08:49)
[2023-02-22] MEDS: FLUTICASONE NASAL SPRAY NAS SCH (08:50)
[2023-02-22] MEDS: POTASSIUM CHLOR 10 MEQ/100 ML 10 MEQ/100 ML BAG IV SCH ×4 (08:50→15:01)
[2023-02-22] MEDS: polyethylene glycoL 3350 17 GM PACKET PO SCH (08:50)
[2023-02-22] MEDS: DOCUSATE SODIUM 250 MG CAPSULE PO SCH (08:50)
[2023-02-22] MEDS: GENTAMICIN 0.3% OPHTH DROPS EACHEYE SCH ×2 (08:51→21:39)
[2023-02-22] MEDS: SODIUM CHLORIDE FLUSH 0.9% 10 ML SYRINGE IVP SCH ×2 (08:52→17:05)
[2023-02-22] MEDS ORDERED: HALOPERIDOL 5 MG/ML VIAL IM PRN (13:06)
[2023-02-22] MEDS: OLANZapine 10 MG VIAL IM SCH ×2 (13:17→21:35)
[2023-02-22] MEDS: metFORMIN 500 MG TABLET PO SCH (17:05)
[2023-02-22] MEDS: cephALEXin 250 MG CAPSULE PO SCH (21:34)
[2023-02-23] MEDS: cephALEXin 250 MG CAPSULE PO SCH ×4 (00:12→17:33)
[2023-02-23] MEDS: SODIUM CHLORIDE FLUSH 0.9% 10 ML SYRINGE IVP SCH ×4 (00:13→16:58)
[2023-02-23] MEDS: HYDROCORTISONE 1% CREAM 28 GM TUBE TOP SCH ×3 (06:50→21:33)
[2023-02-23] MEDS: LIDOCAINE JELLY 2% 6 ML JEL.PF.APP TOP SCH (06:50)
[2023-02-23] MEDS: DULoxetine 30 MG CAPSULE PO SCH ×4 (08:48→12:25)
[2023-02-23] MEDS: metFORMIN 500 MG TABLET PO SCH ×3 (08:48→16:58)
[2023-02-23] MEDS: LORazepam 0.5 MG TABLET SL SCH ×2 (08:48→20:37)
[2023-02-23] MEDS: MAGNESIUM OXIDE 400 MG TABLET PO SCH ×4 (08:48→12:25)
[2023-02-23] MEDS: ASPIRIN EC 81 MG TABLET PO SCH ×4 (08:49→13:23)
[2023-02-23] MEDS: SENNA 8.6 MG TABLET PO SCH (08:49)
[2023-02-23] MEDS: MULTIVITAMIN W/MINERALS TABLET PO SCH ×3 (08:49→12:16)
[2023-02-23] MEDS: polyethylene glycoL 3350 17 GM PACKET PO SCH (08:49)
[2023-02-23] MEDS: DOCUSATE SODIUM 250 MG CAPSULE PO SCH (08:50)
[2023-02-23] MEDS: FLUTICASONE NASAL SPRAY NAS SCH (08:50)
[2023-02-23] MEDS: GENTAMICIN 0.3% OPHTH DROPS EACHEYE SCH ×2 (08:53→20:37)
[2023-02-23] MEDS: OLANZapine 10 MG VIAL IM SCH (08:53)
--- NOTE | 2023-02-23 12:51 | PROVIDER PROGRESS NOTE ---
Subjective - Prog Note Date Prog Note Date: 02/23/23 Prog Note Time: 12:51 - Subjective Subjective: he is sleepy this am. He was not nearly as communicative as it was yesterday. But then later in the morning and early afternoon he woke up. He is walking the hallways. He is speaking with normal sentence structure. He is asking when he can leave. This is amazing. Current Medications - Current Medications Current Medications: Active Medications Acetaminophen (Acetaminophen 325 Mg Tablet) 650 mg PO Q4HR PRN PRN Reason: Pain or Fever > 38C (100.4F) Last Admin: 02/23/23 17:33 Dose: 650 mg Aspirin (Aspirin Ec 81 Mg Tablet) 81 mg PO DAILY [facility] Last Admin: 02/23/23 13:23 Dose: 81 mg Cephalexin (Cephalexin 250 Mg Capsule) 500 mg PO Q6HR [facility] Last Admin: 02/23/23 17:33 Dose: 500 mg Docusate Sodium (Docusate Sodium 250 Mg Capsule) 250 - 500 mg PO DAILY [facility] Last Admin: 02/23/23 08:50 Dose: Not Given Duloxetine HCl (Duloxetine 30 Mg Capsule) 30 mg PO DAILY [facility] Last Admin: 02/23/23 12:25 Dose: 30 mg Fluticasone Propionate (Fluticasone Nasal [place]) 1 sprays CRISTIAN DAILY [facility] Last Admin: 02/23/23 08:50 Dose: 1 tab Gentamicin Sulfate (Gentamicin 0.3% Ophth Drops) 1 drops EACHEYE BID [facility] Stop: 02/23/23 21:00 Last Admin: 02/23/23 08:53 Dose: 1 drops Haloperidol (Haloperidol 5 Mg/Ml Vial) 2 mg IM DAILY PRN PRN Reason: Agitation Hydrocortisone (Hydrocortisone 1% Cream 28 Gm Tube) 1 applic TOP TID [facility] Last Admin: 02/23/23 14:26 Dose: Not Given Ibuprofen (Ibuprofen 600 Mg Tablet) 600 mg PO Q6HR PRN PRN Reason: MINOR PAIN Last Admin: 02/23/23 13:58 Dose: 600 mg Lidocaine HCl (Lidocaine Jelly 2% 6 Ml Jel.Pf.Shanda) 1 ml TOP TID PRN PRN Reason: anal itching pain Lorazepam (Lorazepam 0.5 Mg Tablet) 0.5 mg SL BID [facility] Last Admin: 02/23/23 08:48 Dose: 0.5 mg Magnesium Oxide (Magnesium Oxide 400 Mg Tablet) 400 mg PO DAILYWM [facility] Last Admin: 02/23/23 12:25 Dose: 400 mg Metformin HCl (Metformin 500 Mg Tablet) 1,000 mg PO BIDWM [facility] Last Admin: 02/23/23 16:58 Dose: 1,000 mg Multivitamins/Minerals (Multivitamin W/Minerals Tablet) 1 tab PO DAILYWM [facility] Last Admin: 02/23/23 12:16 Dose: 1 tab Olanzapine (Olanzapine Odt 5 Mg Tablet) 5 mg TL BID [facility] Ondansetron HCl (Ondansetron 4 Mg/2 Ml Vial) 4 mg IVP Q6HR PRN PRN Reason: Nausea / Vomiting Polyethylene Glycol (Polyethylene Glycol 3350 17 Gm Packet) 17 gm PO DAILY [facility] Last Admin: 02/23/23 08:49 Dose: Not Given Senna (Senna 8.6 Mg Tablet) 8.6 - 17.2 mg PO DAILY [facility] Last Admin: 02/23/23 08:49 Dose: Not Given Sodium Chloride (Sodium Chloride Flush 0.9% 10 Ml Syringe) 10 ml IVP PRN PRN PRN Reason: NEEDED PER PROVIDER ORDERS Sodium Chloride (Sodium Chloride Flush 0.9% 10 Ml Syringe) 10 ml IVP 0100,0900,1700 [facility] Last Admin: 02/23/23 16:58 Dose: Not Given metFORMIN [Glucophage] 1,000 mg PO BIDWM 08/29/20 Aspirin [Aspirin EC] 81 mg PO DAILY 12/20/22 Atorvastatin Calcium [Lipitor] 80 mg PO HS 12/20/22 DULoxetine [Cymbalta] 60 mg PO DAILY 12/20/22 Fluticasone [Flonase] 1 sprays CRISTIAN DAILY 12/20/22 Gabapentin [Neurontin] 600 mg PO TID 12/20/22 risperiDONE [Risperdal] 3 mg PO BID 12/20/22 Buprenorphine 1 each TD Q7D PRN 12/21/22 Objective - Vital Signs/Intake & Output Reviewed Vital Signs: Yes Vital Signs: Vital Signs x48h Temp Pulse Resp BP Pulse Ox 02/23/23 07:52 36.9 C 63 18 148/67 H 98 Intake & Output: Intake & Output 02/20/23 02/21/23 02/22/23 02/23/23 23:59 23:59 23:59 23:59 Intake Total 2472.917 3670 4274.00 700 Output Total 875 Balance 2472.917 2795 4274.00 700 - Objective General Appearance: positive: Alert, Other (He is using a walker. Slightly shuffling gait. But appropriate and is walking, following prompts. Wants to take a bath. He is eating all of his food. Again, speaking to his normally and responding normally) Eyes Bilateral: positive: PERRL, EOMI ENT: positive: No signs of dehydration Neck: positive: No JVD. negative: Stiff neck Respiratory: positive: No respiratory distress. negative: Wheezes, Rales, Rhonchi Cardiovascular: positive: Regular rate & rhythm Abdomen: positive: Non-tender, No organomegaly, Nml bowel sounds, No distention Skin: positive: Warm, Dry Extremities: positive: Full ROM, No pedal edema, Other (The right toe that was infected yesterday has still localized circumscribed redness around the nailbed and the toe itself. It does not involve any of the metatarsal region or the foot.) Neurologic/Psychiatric: positive: CN's nml (2-12), Disoriented to time. negative: Motor nml (Shuffling gait. Some rigidity to his movements that I think is extrapyramidal) - Lab Results Fish Bones: 02/16/23 04:52 02/22/23 07:38 ABX Reporting Has patient been on IV antibiotics over the past 48 hours?: No Assessment/Plan - Problem List (1) Major depressive disorder, recurrent, severe with psychotic symptoms Impression: He is almost mute and exhibits Catatonia Since admission, the patient just stares at hospitalist and other staff after being asked a question, and occasionally softly mumbles an answer, to what was asked 2 questions ago. Other staff have told me that he does the same thing with them and he does not participate in any discussions. He did initially keep asking when Mer will visit and she visited him on 02/17. Hospitalist spoke to his caregiver, Mer in the room at his bedside on 02/17 and updated her. Mer by phone on 02/16 stated that he has worsened since 2010, goes to a psychiatrist, has had his psychiatric meds adjusted and we do have the current proper medication list. Mer said that when he stares at you. "it is because the people that are in his body do not like what they are hearing". Therefore, when he is staring, his symptoms are not under control. Mer said this is his catatonia. Mer said that the patient can no longer make decisions for himself, and she has to remind him and cue him multiple times to do something. She is working with the pt's daughter Christina, and the patient's case management associate, trying to get him permanent placement. At home he takes Risperdal 3 mg p.o. twice daily. That was resumed. But then discontinued due to sedation. February 11February 19 he was unhappy and describing discomfort in his rectum or his back. On examination I saw some small linear fissures. He is still getting up as much as he did yesterday. I resumed his Risperdal 3 mg p.o. twice a day 02/19 and not improved. I had initially to order telepsych 02/19 But through miscommunication, nursing had not followed through on that. I think the nursing on day shift did not realize that it was their responsibility to make it happen. 02/[address] Lawrence, his psychiatrist. She is [phone]. She said that she has been seeing him off and on for over a year, remotely, over Zoom. She last saw him on Zoom May 2022 right before she went on maternity leave. Before she went on maternity leave, he was functioning well. Minimal psychosis. Mild depression. He was on sertraline. She came back from maternity leave and immediately noticed that he had a substantial change 6 to 7 months later. He was hallucinating, falling, having episodes of defecation and urination all over the floor in his house. He felt that aliens, or Indians, or other individuals in his life were putting stuff up his rectum and he was desperate to pull it out but he just could not pull them out. At that time he was using excessive, excessive cannabis so they had him stop it for 2 months and he did not get any better. No clear reason of why he was falling. He then started sliding into being mute. Unresponsive. 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 Seroquel had no effect, benzodiazepines for the mutism had no effect, sertraline had no effect. He then started getting extraparametal signs on Risperdal 3 mg p.o. 3 times daily so she decreased it to 3 mg twice daily. In spite of all this, the muteness has become more and more predominant. Benzodiazepines usually help but Ativan did not help. So what I am describing to her is exactly what she was seen. She was in the process of speaking to his vocational case manager. They were working on a more intensive environment and placement for him because he was not going to be able to succeed living at home with his home care manager/ex-girlfriend. The vocational case manager is named Mikaela Irving and her number is [phone], extension [phone]. Dr. Lawrence does feel that the patient would benefit from an inpatient stay. But his caregiver says that did not work a year ago. He was only okay for a couple of days and then he started regressing again. However Dr. Lawrence feels that stabilization of his mood, and his psychosis would be beneficial before he is placed in any permanent residential situation. February 21, I gave him Zyprexa as he increasingly spiraled with his agitation of going to the bathroom, getting out of bed with the IV pole in place. It seems to have helped. He slept for a few hours, and was quiet for the rest of the afternoon. Last night around 3 in the morning he did require intervention. 02/22 in the morning he was looking at me, and is more aware of his environment, is not agitated, and actually speaking full sentences. Today has been unremarkable. Getting out of bed on his own. On his own will grab the walker to go walk down the hallway. Speaking to me, speaking to the nurses. Asking to go home. Plan: There is a nationwide shortage of Zyprexa IM. As such I switched him to Zyprexa 5 mg ODT twice daily. I will continue to monitor the side effects to make sure he does not get too sedated. Continue Ativan sublingual twice daily 0.5 mg. Add Haldol 2 mg IM to the middle of the night as needed if he has breakthrough.He has not needed this Haldol yet. Risperdal has been discontinued So as to avoid extraparametal side effects Continue Cymbalta 60 mg daily (2) Rhabdomyolysis Resolved and I believe he is a new baseline creatinine. CPK on admission was 19,[id number]>>[id number]>>[id number]>>[id number]>> 3369>>1581>>680>>440 today Being out the CEDRIC stopped his IV fluids February 21 because he kept on pulling on the IV,, and the IV pole would also get tangled. It was becoming a fall risk. Plan: continue to encourage liquid po intake. Qualifiers: Rhabdomyolysis type: traumatic (3) Left arm swelling The appearance is that of dependent edema, perhaps he laid on that arm when he slept. Ultrasound duplex Doppler was done on February 18 to make sure he did not have a DVT. That study was negative. He continues to have left arm edema and left hand edema. But there is no redness, no heat. He can flex and extend at the elbow and at the wrist. Fingers look like sausages. Skin is pink. Good capillary refill. Temperature of the arm and the hand is normal. (4) ANGELO (acute kidney injury)/hypokalemia Conclusion/Plan: On admission, he was visibly dehydrated clinically. His BUN/creat have improved from admission, since iv fluids were started. His baseline creat is 1.1 (records were reviewed). Since admission, 2.1>> 1.7>> 1.6>> 1.5>> 1.4>>1.3 since 02/20. This creatintine may be his new baseline. This Angelo is likely from underlying volume depletion in addition to the rhabdo. IVF stopped 02/21 Plan: Avoid nephrotoxins I have personally spoken to nursing and asked her to please encourage as much water intake as he would take. Follow BMP daily (5) Abrasions of multiple sites Conclusion/Plan: As per photos taken by nursing Plan: We will provide topical care where necessary We will also order medications for pain and cont his weekly Suboxone (6) Fall at home Conclusion/Plan: Unclear why this gentleman keeps on falling at home. His caregiver wonders if he just forgets to use his walker and that is why he falls. So far his falls are witnessed. They are mechanical falls. There is no syncope. There is no orthostatic component to them. They are not seizures. Here, he is watched carefully by nursing. No falls. And he gets up multiple times out of bed. He initially had orthostatic vital signs being checked when he got here. Those have been discontinued. Social work is working closely with his caregiver. Trying to begin formulating some plans for this gentlemen's future. I have forwarded the contact for his vocational case manager, Mikaela, to them. (7) Buprenorphine dependence Conclusion/Plan: As per history, this is for chronic back pain. I am concerned that this may be over sedating him and adding to the falls. In addition, pharmacy learned today that his last prescription was written by his PCP 1 year ago, it was ordered for 13 weeks, so he should have run out many months ago, however there are still several patches available in the box that Mer brought from home. We therefore suspect that he was not getting patches on a routine scheduled basis, probably just haphazardly. Plan: Will not reorder buprenorphine patches q week (8) DM type 2 (diabetes mellitus, type 2) Conclusion/Plan: He is on metformin at home. His A1c came back very good at 6.3. Yesterday glucose 127, 152, 103, 160. Today glucose is 88, 138. Plan: Continue diabetic diet Continue fingersticks only in the morning Resume metformin 500 mg po ac bid (9) Poor hygiene One of the examples Mer described to me was that she needs to wipe his gilliam after he eats because he is so messy. He is less able to feed himself over just this past year. His eyelashes have crusted debris. Unknown period of time that he was laying on the floor with his head under the bed, until K.at found him that way and needed to lift him. Today he will be completing 6 days of Garamycin eyedrops. Plan Stop Garamycin eyedrops tomorrow when he completes 7 days of therapy. (10) Abnormal EKG Conclusion/Plan: This patient has an abnromal EKG showing early R/S transition which could signify cor pulmonale. He had the same abnormal EKG findings 2 months ago on admission An Echo was done to check if he has cor pulmonale, and it showed: an essentially normal heart, with normal LV size and systolic function but grade 1 diastolic function present and normal RV size and function were seen. (11) Small rectal fissures Hydrocortisone mixture with lidocaine mixture and apply every 3-4 hours as needed was started 02/19 but he is not really able to tell me if this helps
[2023-02-23] MEDS: IBUPROFEN 600 MG TABLET PO PRN (13:58)
[2023-02-23] MEDS: ACETAMINOPHEN 325 MG TABLET PO PRN (17:33)
[2023-02-23] MEDS: OLANZapine ODT 5 MG TABLET TL SCH (20:37)
[2023-02-24] MEDS: cephALEXin 250 MG CAPSULE PO SCH ×5 (01:07→23:43)
[2023-02-24] MEDS: SODIUM CHLORIDE FLUSH 0.9% 10 ML SYRINGE IVP SCH ×4 (01:08→23:42)
[2023-02-24] MEDS: HYDROCORTISONE 1% CREAM 28 GM TUBE TOP SCH ×3 (06:45→22:30)
[2023-02-24] MEDS: LIDOCAINE JELLY 2% 6 ML JEL.PF.APP TOP PRN ×2 (06:46→13:56)
[2023-02-24 08:22] LABS: CALCIUM 8.9 mg/dL (8.5-10.3); CREATININE 1.4 mg/dL (0.6-1.2); POTASSIUM 3.6 mmol/L (3.5-5.0)
[2023-02-24] MEDS: LORazepam 0.5 MG TABLET SL SCH ×2 (08:53→22:29)
[2023-02-24] MEDS: metFORMIN 500 MG TABLET PO SCH ×2 (08:53→17:00)
[2023-02-24] MEDS: polyethylene glycoL 3350 17 GM PACKET PO SCH (08:53)
[2023-02-24] MEDS: ASPIRIN EC 81 MG TABLET PO SCH (08:53)
[2023-02-24] MEDS: DULoxetine 30 MG CAPSULE PO SCH (08:54)
[2023-02-24] MEDS: SENNA 8.6 MG TABLET PO SCH (08:54)
[2023-02-24] MEDS: MULTIVITAMIN W/MINERALS TABLET PO SCH (08:54)
[2023-02-24] MEDS: DOCUSATE SODIUM 250 MG CAPSULE PO SCH (08:54)
[2023-02-24] MEDS: OLANZapine ODT 5 MG TABLET TL SCH ×2 (08:54→22:30)
[2023-02-24] MEDS: MAGNESIUM OXIDE 400 MG TABLET PO SCH (08:56)
[2023-02-24] MEDS: FLUTICASONE NASAL SPRAY NAS SCH (09:07)
--- NOTE | 2023-02-24 12:45 | OPERATIVE REPORT ---
Operative Report - General Admit Date: 02/14/23 Procedure Date: 02/24/23 Planned Procedure: I and D right third toe infected blister Pre-Op Diagnosis: right third toe infected blister Procedure Performed: I and D performed after parq and verbal consent Post Op Diagnosis: same - Procedure Note Primary Surgeon: rk vang Anesthesia Technique: Other (none/ not needed) Pathology: none. mostly serous fluid Estimated Blood Loss (mL): 0 Indications: toe blister with possible early infection Findings: with clean technique less than 1 cm incision made and drainage mostly serous fluid. color toe and skin improved after I and D Complications: none
--- NOTE | 2023-02-24 13:55 | PROVIDER PROGRESS NOTE ---
Subjective - Prog Note Date Prog Note Date: 02/24/23 Prog Note Time: 13:52 - Subjective Pt reports feeling: Improved Subjective: Keeps on asking to go home. Walking in the hallways with a walker. Is now doing laps around. Perseverating. Forgetful. But it is amazing to watch him walk, talk, and interact in a meaningful way. Current Medications - Current Medications Current Medications: Active Medications Acetaminophen (Acetaminophen 325 Mg Tablet) 650 mg PO Q4HR PRN PRN Reason: Pain or Fever > 38C (100.4F) Last Admin: 02/23/23 17:33 Dose: 650 mg Aspirin (Aspirin Ec 81 Mg Tablet) 81 mg PO DAILY [facility] Last Admin: 02/24/23 08:53 Dose: 81 mg Cephalexin (Cephalexin 250 Mg Capsule) 500 mg PO Q6HR [facility] Last Admin: 02/24/23 12:08 Dose: 500 mg Docusate Sodium (Docusate Sodium 250 Mg Capsule) 250 - 500 mg PO DAILY [facility] Last Admin: 02/24/23 08:54 Dose: 250 mg Duloxetine HCl (Duloxetine 30 Mg Capsule) 30 mg PO DAILY [facility] Last Admin: 02/24/23 08:54 Dose: 30 mg Fluticasone Propionate (Fluticasone Nasal Hendricks) 1 sprays CRISTIAN DAILY [facility] Last Admin: 02/24/23 09:07 Dose: 1 tab Haloperidol (Haloperidol 5 Mg/Ml Vial) 2 mg IM DAILY PRN PRN Reason: Agitation Hydrocortisone (Hydrocortisone 1% Cream 28 Gm Tube) 1 applic TOP TID [facility] Last Admin: 02/24/23 06:45 Dose: 1 applic Ibuprofen (Ibuprofen 600 Mg Tablet) 600 mg PO Q6HR PRN PRN Reason: MINOR PAIN Last Admin: 02/23/23 13:58 Dose: 600 mg Lidocaine HCl (Lidocaine Jelly 2% 6 Ml Jel.Pf.Shanda) 1 ml TOP TID PRN PRN Reason: anal itching pain Last Admin: 02/24/23 06:46 Dose: 1 ml Lorazepam (Lorazepam 0.5 Mg Tablet) 0.5 mg SL BID [facility] Last Admin: 02/24/23 08:53 Dose: 0.5 mg Magnesium Oxide (Magnesium Oxide 400 Mg Tablet) 400 mg PO DAILYWM [facility] Last Admin: 02/24/23 08:56 Dose: 400 mg Metformin HCl (Metformin 500 Mg Tablet) 1,000 mg PO BIDWM [facility] Last Admin: 02/24/23 08:53 Dose: 1,000 mg Multivitamins/Minerals (Multivitamin W/Minerals Tablet) 1 tab PO DAILYWM [facility] Last Admin: 02/24/23 08:54 Dose: 1 tab Olanzapine (Olanzapine Odt 5 Mg Tablet) 5 mg TL BID [facility] Last Admin: 02/24/23 08:54 Dose: 5 mg Ondansetron HCl (Ondansetron 4 Mg/2 Ml Vial) 4 mg IVP Q6HR PRN PRN Reason: Nausea / Vomiting Polyethylene Glycol (Polyethylene Glycol 3350 17 Gm Packet) 17 gm PO DAILY [facility] Last Admin: 02/24/23 08:53 Dose: 17 gm Senna (Senna 8.6 Mg Tablet) 8.6 - 17.2 mg PO DAILY [facility] Last Admin: 02/24/23 08:54 Dose: 8.6 mg Sodium Chloride (Sodium Chloride Flush 0.9% 10 Ml Syringe) 10 ml IVP PRN PRN PRN Reason: NEEDED PER PROVIDER ORDERS Sodium Chloride (Sodium Chloride Flush 0.9% 10 Ml Syringe) 10 ml IVP 0100,0900,1700 [facility] Last Admin: 02/24/23 08:55 Dose: Not Given metFORMIN [Glucophage] 1,000 mg PO BIDWM 08/29/20 Aspirin [Aspirin EC] 81 mg PO DAILY 12/20/22 Atorvastatin Calcium [Lipitor] 80 mg PO HS 12/20/22 DULoxetine [Cymbalta] 60 mg PO DAILY 12/20/22 Fluticasone [Flonase] 1 sprays CRISTIAN DAILY 12/20/22 Gabapentin [Neurontin] 600 mg PO TID 12/20/22 risperiDONE [Risperdal] 3 mg PO BID 12/20/22 Buprenorphine 1 each TD Q7D PRN 12/21/22 Objective - Vital Signs/Intake & Output Reviewed Vital Signs: Yes Vital Signs: Vital Signs x48h Temp Pulse Resp BP Pulse Ox 02/24/23 07:56 36.8 C 69 18 132/70 H 94 Intake & Output: Intake & Output 02/21/23 02/22/23 02/23/23 02/24/23 23:59 23:59 23:59 23:59 Intake Total 3670 4274.00 1400 680 Output Total 875 400 Balance 2795 4274.00 1400 280 - Objective General Appearance: positive: Alert, Other (5 foot 9 inch male, 84.5 kg, 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 negative: Stiff neck Respiratory: positive: No respiratory distress. negative: Wheezes, Rales, Rhonchi Cardiovascular: positive: Regular rate & rhythm Abdomen: positive: Non-tender, No organomegaly, Nml bowel sounds, No distention, Other (Easily reducible umbilical hernia) Skin: positive: Warm, Dry Extremities: positive: Full ROM, No pedal edema, Other (Right foot, third toe, now bulbous and swelling with probable yellowish pus in the toe. Again redness does not extend into the foot) Neurologic/Psychiatric: positive: CN's nml (2-12), Disoriented to place (He knows that he is not home, but he does not quite recognize it is a hospital), Disoriented to time. negative: Motor nml (Shuffling gait, stiff motor movem ents.) - Lab Results Fish Bones: 02/16/23 04:52 02/24/23 08:03 Other Labs: Lab Results x24hrs 02/24/23 02/23/23 Range/Units 08:03 14:10 Sodium 141 (135-145) mmol/L Potassium 3.6 (3.5-5.0) mmol/L Chloride 107 (101-111) mmol/L Carbon Dioxide 26 (21-32) mmol/L Anion Gap 8.0 (6-13) BUN 12 (6-20) mg/dL Creatinine 1.4 H (0.6-1.2) mg/dL Estimated GFR (MDRD) 52 L (>89) Glucose 110 H (70-100) mg/dL Calcium 8.9 (8.5-10.3) mg/dL Total Creatine Kinase 440 H (22-269) IU/L ABX Reporting Has patient been on IV antibiotics over the past 48 hours?: No Assessment/Plan - Problem List (1) Toe infection Impression: No fever. The last time I checked his white cell count it was 7.4 on February 16. He really does not have any systemic complaints of infection. He does not even tell me it hurts. Plan: Foot film, general surgery consult to see if it needs to be debrided (2) Major depressive disorder, recurrent, severe with psychotic symptoms Impression: He was almost mute and exhibits Catatonia Since admission, the patient just stared at hospitalist and other staff after be ing asked a question, and occasionally softly mumbles an answer, to what was asked 2 questions ago. Other staff have told me that he does the same thing with them and he does not participate in any discussions. He did initially keep asking when Mer will visit and she visited him on 02/17. Hospitalist spoke to his caregiver, Mer in the room at his bedside on 02/17 and updated her. Mer by phone on 02/16 stated that he has worsened since 2010, goes to a psychiatrist, has had his psychiatric meds adjusted and we do have the current proper medication list. Mer said that when he stares at you. "it is because the people that are in his body do not like what they are hearing". Therefore, when he is staring, his symptoms are not under control. Mer said this is his catatonia. Mer said that the patient can no longer make decisions for himself, and she has to remind him and cue him multiple times to do something. She is working with the pt's daughter Christina, and the patient's supervisor case loading, trying to get him permanent placement. At home he takes Risperdal 3 mg p.o. twice daily. That was resumed. But then discontinued due to sedation. February 11 7 February 19 he was unhappy and describing discomfort in his rectum or his back. On examination I saw some small linear fissures. He is still getting up as much as he did yesterday. I resumed his Risperdal 3 mg p.o. twice a day 02/19 and not improved. I had initially to order telepsych 02/19 But through miscommunication, nursing had not followed through on that. I think the nursing on day shift did not realize that it was their responsibility to make it happen. 02/[address] Lawrence, his psychiatrist. She is [phone]. She said that she has been seeing him off and on for over a year, remotely, over Zoom. She last saw him on Zoom May 2022 right before she went on maternity leave. Before she went on maternity leave, he was functioning well. Minimal psychosis. Mild depression. He was on sertraline. She came back from maternity leave and immediately noticed that he had a substantial change 6 to 7 months later. He was hallucinating, falling, having episodes of defecation and urination all over the floor in his house. He felt that aliens, or Indians, or other individuals in his life were putting stuff up his rectum and he was desperate to pull it out but he just could not pull them out. At that time he was using excessive, excessive cannabis so they had him stop it for 2 months and he did not get any better. No clear reason of why he was falling. He then started sliding into being mute. Unresponsive. 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 Seroquel had no effect, benzodiazepines for the mutism had no effect, sertraline had no effect. He then started getting extraparametal signs on Risperdal 3 mg p.o. 3 times daily so she decreased it to 3 mg twice daily. In spite of all this, the muteness has become more and more predominant. Benzodiazepines usually help but Ativan did not help. So what I am describing to her is exactly what she was seen. She was in the process of speaking to his sample case porter. They were working on a more intensive environment and placement for him because he was not going to be able to succeed living at home with his home care associate/ex-girlfriend. The sample case porter is named Mikaela Irving and her number is [phone], extension [phone]. Dr. Lawrence does feel that the patient would benefit from an inpatient stay. But his caregiver says that did not work a year ago. He was only okay for a couple of days and then he started regressing again. However Dr. Lawrence feels that stabilization of his mood, and his psychosis would be beneficial before he is placed in any permanent residential situation. February 21, I gave him Zyprexa as he increasingly spiraled with his agitation of going to the bathroom, getting out of bed with the IV pole in place. It seems to have helped. He slept for a few hours, and was quiet for the rest of the afternoon. 02/22 at 3 in the morning he did require intervention. 02/22 in the morning he was looking at me, and is more aware of his environment, is not agitated, and actually speaking full sentences. 02/23 was unremarkable. Getting out of bed on his own. On his own will grab the walker to go walk down the hallway. Speaking to me, speaking to the nurses. Asking to go home. He continues to be mobile, but needs supervision. Impulsive. Needs repetitive prompts to keep him focussed. Plan: There is a nationwide shortage of Zyprexa IM. As such I switched him to Zyprexa 5 mg ODT twice daily on 02/23. So far no excessive sedation. Continue Ativan sublingual twice daily 0.5 mg. Add Haldol 2 mg IM to the middle of the night as needed if he has breakthrough.He has not needed this Haldol yet. Risperdal has been discontinued So as to avoid extraparametal side effects Continue Cymbalta 60 mg daily (2) Rhabdomyolysis Resolved and I believe he is a new baseline creatinine. CPK on admission was 19,799>>[id number]>>[id number]>>9257>>8328>> 3369>>1581>>680>>440 today Being out the CEDRIC stopped his IV fluids February 21 because he kept on pulling on the IV,, and the IV pole would also get tangled. It was becoming a fall risk. Plan: continue to encourage liquid po intake. Qualifiers: Rhabdomyolysis type: traumatic (3) Left arm swelling The appearance is that of dependent edema, perhaps he laid on that arm when he slept. Ultrasound duplex Doppler was done on February 18 to make sure he did not have a DVT. That study was negative. He continues to have left arm edema and left hand edema. But there is no redness, no heat. He can flex and extend at the elbow and at the wrist. Fingers look like sausages. Skin is pink. Good capillary refill. Temperature of the arm and the hand is normal. (4) ANGELO (acute kidney injury)/hypokalemia Conclusion/Plan: On admission, he was visibly dehydrated clinically. His BUN/creat have improved from admission, since iv fluids were started. His baseline creat is 1.1 (records were reviewed). Since admission, 2.1>> 1.7>> 1.6>> 1.5>> 1.4>>1.3 since 02/20. This creatintine may be his new baseline. This Angelo is likely from underlying volume depletion in addition to the rhabdo. IVF stopped 02/21. K is normal today. Plan: Avoid nephrotoxins I have personally spoken to nursing and asked her to please encourage as much water intake as he would take. Follow BMP daily (5) Abrasions of multiple sites Conclusion/Plan: As per photos taken by nursing Plan: We will provide topical care where necessary (6) Fall at home Conclusion/Plan: Unclear why this gentleman keeps on falling at home. His caregiver wonders if he just forgets to use his walker and that is why he falls. So far his falls are witnessed. They are mechanical falls. There is no syncope. There is no orthostatic component to them. They are not seizures. Here, he is watched carefully by nursing. No falls. And he gets up multiple times out of bed. He initially had orthostatic vital signs being checked when he got here. Those have been discontinued. Social work is working closely with his caregiver. Trying to begin formulating some plans for this gentlemen's future. I have forwarded the contact for his sample case porter, Mikaela, to them. (7) Buprenorphine dependence Conclusion/Plan: As per history, this is for chronic back pain. I am concerned that this may be over sedating him and adding to the falls. In addition, pharmacy learned today that his last prescription was written by his PCP 1 year ago, it was ordered for 13 weeks, so he should have run out many months ago, however there are still several patches available in the box that Mer brought from home. We therefore suspect that he was not getting patches on a routine scheduled basis, probably just haphazardly. Plan: Will not reorder buprenorphine patches q week (8) DM type 2 (diabetes mellitus, type 2) Conclusion/Plan: He is on metformin at home. His A1c came back very good at 6.3. Metformin resumed February 22. Yesterday glucose 88, 138. Today glucose is 105. Plan: Continue diabetic diet Continue fingersticks only in the morning (9) Poor hygiene One of the examples Mer described to me was that she needs to wipe his gilliam after he eats because he is so messy. He is less able to feed himself over just this past year. Here, he continues to be quite a messy eater. Food on the table, food on the floor. But he is eating. His eyelashes had crusted debris. Unknown period of time that he was laying on the floor with his head under the bed, until K.at found him that way and needed to lift him. He completed 7 days of Garamycin (10) Abnormal EKG Conclusion/Plan: This patient has an abnromal EKG showing early R/S transition which could signify cor pulmonale. He had the same abnormal EKG findings 2 months ago on admission An Echo was done to check if he has cor pulmonale, and it showed: an essentially normal heart, with normal LV size and systolic function but grade 1 diastolic function present and normal RV size and function were seen. (11) Small rectal fissures Hydrocortisone mixture with lidocaine mixture and apply every 3-4 hours as n eeded was started 02/19 but he is not really able to tell me if this helps. Still not really able to tell me if he does not. This patient was using his fingers to disimpact himself to get "those things" out of his rectum. So I wonder if the fissures I was seeing were actually abrasions from his fingernail
--- NOTE | 2023-02-24 15:06 | XRAY Report ---
PROCEDURE: Foot 2 View RT INDICATIONS: swollen, red, w pus 3rd toe TECHNIQUE: 2 views of the foot were acquired. COMPARISON: None. FINDINGS: Bones: No significant plain film abnormality of the third toe is seen. No fractures or dislocations. No suspicious bony lesions. There is an accessory ossicle seen, an os tibiale externum. Age-appropriate degenerative changes are seen. Soft tissues: No suspicious soft tissue calcifications or masses. IMPRESSION: No acute plain film abnormality can be seen. If there is strong clinical concern for developing osteomyelitis in this patient with this given hist ory, then please consider a dedicated MRI (without and with contrast) for further evaluation (assumin g that there is no contraindication). Reviewed by: Sagar Medina MD on 02/24/2023 2:04 PM FIGUER[facility] Approved by: Sagar Medina MD on 02/24/2023 2:04 PM FIGUEROA Station ID: [id number]
[2023-02-24] MEDS: ACETAMINOPHEN 325 MG TABLET PO PRN (18:10)
[2023-02-25] MEDS: cephALEXin 250 MG CAPSULE PO SCH ×4 (06:21→23:37)
[2023-02-25] MEDS: HYDROCORTISONE 1% CREAM 28 GM TUBE TOP SCH ×3 (06:24→20:42)
[2023-02-25] MEDS: ACETAMINOPHEN 325 MG TABLET PO PRN ×2 (06:30→16:30)
[2023-02-25 06:43] LABS: CALCIUM 8.9 mg/dL (8.5-10.3); CREATININE 1.4 mg/dL (0.6-1.2); POTASSIUM 3.9 mmol/L (3.5-5.0)
[2023-02-25] MEDS: OLANZapine ODT 5 MG TABLET TL SCH ×2 (08:12→20:42)
[2023-02-25] MEDS: polyethylene glycoL 3350 17 GM PACKET PO SCH (08:12)
[2023-02-25] MEDS: ASPIRIN EC 81 MG TABLET PO SCH (08:12)
[2023-02-25] MEDS: MULTIVITAMIN W/MINERALS TABLET PO SCH (08:12)
[2023-02-25] MEDS: DOCUSATE SODIUM 250 MG CAPSULE PO SCH (08:13)
[2023-02-25] MEDS: LORazepam 0.5 MG TABLET SL SCH ×2 (08:13→20:42)
[2023-02-25] MEDS: MAGNESIUM OXIDE 400 MG TABLET PO SCH (08:13)
[2023-02-25] MEDS: SODIUM CHLORIDE FLUSH 0.9% 10 ML SYRINGE IVP SCH ×3 (08:13→23:32)
[2023-02-25] MEDS: DULoxetine 30 MG CAPSULE PO SCH (08:13)
[2023-02-25] MEDS: SENNA 8.6 MG TABLET PO SCH (08:13)
[2023-02-25] MEDS: FLUTICASONE NASAL SPRAY NAS SCH (08:14)
[2023-02-25] MEDS: metFORMIN 500 MG TABLET PO SCH ×2 (09:15→17:11)
--- NOTE | 2023-02-25 09:15 | PROVIDER PROGRESS NOTE ---
Subjective - Subjective Subjective: appears comfortable and well. eating breakfast Objective - Vital Signs/Intake & Output Reviewed Vital Signs: Yes Vital Signs: Vital Signs x48h Temp Pulse Resp BP Pulse Ox 02/25/23 08:00 36.5 C 69 18 135/65 H 98 Intake & Output: Intake & Output 02/22/23 02/23/23 02/24/23 02/25/23 23:59 23:59 23:59 23:59 Intake Total 4274.00 1400 1160 Output Total 400 Balance 4274.00 1400 760 - Objective General Appearance: positive: Alert Eyes Bilateral: positive: PERRL, EOMI ENT: positive: No signs of dehydration Neck: positive: No JVD, Trachea midline Respiratory: positive: No respiratory distress Abdomen: positive: No distention Extremities: positive: Other (right foot improved following small I and D) - Lab Results Fish Bones: 02/16/23 04:52 02/25/23 06:30 Other Labs: Lab Results x24hrs 02/25/23 Range/Units 06:30 Sodium 138 (135-145) mmol/L Potassium 3.9 (3.5-5.0) mmol/L Chloride 104 (101-111) mmol/L Carbon Dioxide 28 (21-32) mmol/L Anion Gap 6.0 (6-13) BUN 17 (6-20) mg/dL Creatinine 1.4 H (0.6-1.2) mg/dL Estimated GFR (MDRD) 52 L (>89) Glucose 104 H (70-100) mg/dL Calcium 8.9 (8.5-10.3) mg/dL Assessment/Plan - Problem List (1) Toe infection Impression: improviing following I and D and current care
[2023-02-25] MEDS: LIDOCAINE JELLY 2% 6 ML JEL.PF.APP TOP PRN (14:20)
--- NOTE | 2023-02-25 15:41 | PROVIDER PROGRESS NOTE ---
Subjective - Prog Note Date Prog Note Date: 02/25/23 Prog Note Time: 15:39 - Subjective Subjective: Pleasant demeanor. But he just really is impulsive and that he does not understand. Cooperative. Easily prompted. But when he wants something he gets up spontaneously and impulsively without the walker. Returns around and wants to walk down the hallway without the walker. Other than that, he is doing well. Talking to me, talking to the nurses, and occasionally talking to his girlfriend. Although I believe that she is no longer his girlfriend. She is just his caregiver. Her boyfriend has moved into the house with her to help her take care of him when the patient was at home. He does not tell me that his toe hurts. He denies chest pain. His arm hurts a little bit where the IV site used to be Current Medications - Current Medications Current Medications: Active Medications Acetaminophen (Acetaminophen 325 Mg Tablet) 650 mg PO Q4HR PRN PRN Reason: Pain or Fever > 38C (100.4F) Last Admin: 02/25/23 06:30 Dose: 650 mg Aspirin (Aspirin Ec 81 Mg Tablet) 81 mg PO DAILY [facility] Last Admin: 02/25/23 08:12 Dose: 81 mg Cephalexin (Cephalexin 250 Mg Capsule) 500 mg PO Q6HR [facility] Last Admin: 02/25/23 11:51 Dose: 500 mg Docusate Sodium (Docusate Sodium 250 Mg Capsule) 250 - 500 mg PO DAILY [facility] Last Admin: 02/25/23 08:13 Dose: 250 mg Duloxetine HCl (Duloxetine 30 Mg Capsule) 30 mg PO DAILY [facility] Last Admin: 02/25/23 08:13 Dose: 30 mg Fluticasone Propionate (Fluticasone Nasal Weston) 1 sprays CRISTIAN DAILY [facility] Last Admin: 02/25/23 08:14 Dose: 1 spray Haloperidol (Haloperidol 5 Mg/Ml Vial) 2 mg IM DAILY PRN PRN Reason: Agitation Hydrocortisone (Hydrocortisone 1% Cream 28 Gm Tube) 1 applic TOP TID [facility] Last Admin: 02/25/23 14:20 Dose: 1 applic Ibuprofen (Ibuprofen 600 Mg Tablet) 600 mg PO Q6HR PRN PRN Reason: MINOR PAIN Last Admin: 02/23/23 13:58 Dose: 600 mg Lidocaine HCl (Lidocaine Jelly 2% 6 Ml Jel.Pf.Shanda) 1 ml TOP TID PRN PRN Reason: anal itching pain Last Admin: 02/25/23 14:20 Dose: 1 ml Lorazepam (Lorazepam 0.5 Mg Tablet) 0.5 mg SL BID [facility] Last Admin: 02/25/23 08:13 Dose: 0.5 mg Magnesium Oxide (Magnesium Oxide 400 Mg Tablet) 400 mg PO DAILYWM [facility] Last Admin: 02/25/23 08:13 Dose: 400 mg Metformin HCl (Metformin 500 Mg Tablet) 1,000 mg PO BIDWM [facility] Last Admin: 02/25/23 09:15 Dose: 1,000 mg Multivitamins/Minerals (Multivitamin W/Minerals Tablet) 1 tab PO DAILYWM [facility] Last Admin: 02/25/23 08:12 Dose: 1 tab Olanzapine (Olanzapine Odt 5 Mg Tablet) 5 mg TL BID [facility] Last Admin: 02/25/23 08:12 Dose: 5 mg Ondansetron HCl (Ondansetron 4 Mg/2 Ml Vial) 4 mg IVP Q6HR PRN PRN Reason: Nausea / Vomiting Polyethylene Glycol (Polyethylene Glycol 3350 17 Gm Packet) 17 gm PO DAILY [facility] Last Admin: 02/25/23 08:12 Dose: 17 gm Senna (Senna 8.6 Mg Tablet) 8.6 - 17.2 mg PO DAILY [facility] Last Admin: 02/25/23 08:13 Dose: 8.6 mg Sodium Chloride (Sodium Chloride Flush 0.9% 10 Ml Syringe) 10 ml IVP PRN PRN PRN Reason: NEEDED PER PROVIDER ORDERS Sodium Chloride (Sodium Chloride Flush 0.9% 10 Ml Syringe) 10 ml IVP 0100,0900,1700 [facility] Last Admin: 02/25/23 08:13 Dose: Not Given metFORMIN [Glucophage] 1,000 mg PO BIDWM 08/29/20 Aspirin [Aspirin EC] 81 mg PO DAILY 12/20/22 Atorvastatin Calcium [Lipitor] 80 mg PO HS 12/20/22 DULoxetine [Cymbalta] 60 mg PO DAILY 12/20/22 Fluticasone [Flonase] 1 sprays CRISTIAN DAILY 12/20/22 Gabapentin [Neurontin] 600 mg PO TID 12/20/22 risperiDONE [Risperdal] 3 mg PO BID 12/20/22 Buprenorphine 1 each TD Q7D PRN 12/21/22 Objective - Vital Signs/Intake & Output Reviewed Vital Signs: Yes Vital Signs: Vital Signs x48h Temp Pulse Resp BP Pulse Ox 02/25/23 08:00 36.5 C 69 18 135/65 H 98 Intake & Output: Intake & Output 02/22/23 02/23/23 02/24/23 02/25/23 23:59 23:59 23:59 23:59 Intake Total 4274.00 1400 1160 1180 Output Total 400 Balance 4274.00 0400 750 9467 - Objective General Appearance: positive: Alert, Other (Masked facies, anhedonic, monotonic voice. But alert, cooperative. He has abrasions on his left yazidi, knees, fingers that are healed or healing. Bearded.) Eyes Bilateral: positive: PERRL, EOMI ENT: positive: No signs of dehydration Neck: positive: No JVD. negative: Stiff neck Respiratory: positive: No respiratory distress. negative: Wheezes, Rales, Rhonchi Cardiovascular: positive: Regular rate & rhythm Abdomen: positive: Non-tender, No organomegaly, Nml bowel sounds, No distention Skin: positive: Warm, Dry Extremities: positive: Full ROM, No pedal edema Neurologic/Psychiatric: positive: CN's nml (2-12), Motor nml (Ataxic, still slightly shuffling gait. But using a walker when prompted.), Disoriented to time (He does not know that he is in the hospital, but he knows he is in an institution. He does think I am one of his nurses.) - Lab Results Fish Bones: 02/16/23 04:52 02/25/23 06:30 Other Labs: Lab Results x24hrs 02/25/23 Range/Units 06:30 Sodium 138 (135-145) mmol/L Potassium 3.9 (3.5-5.0) mmol/L Chloride 104 (101-111) mmol/L Carbon Dioxide 28 (21-32) mmol/L Anion Gap 6.0 (6-13) BUN 17 (6-20) mg/dL Creatinine 1.4 H (0.6-1.2) mg/dL Estimated GFR (MDRD) 52 L (>89) Glucose 104 H (70-100) mg/dL Calcium 8.9 (8.5-10.3) mg/dL ABX Reporting Has patient been on IV antibiotics over the past 48 hours?: No Assessment/Plan - Problem List (1) Toe infection Impression: No fever. The last time I checked his white cell count it was 7.4 on February 16. He really does not have any systemic complaints of infection. He does not even tell me it hurts.Foot x-ray does not have any significant plain film abnormalities of the third toe on the right foot. No fractures or dislocations. No suspicious bony lesions. No suspicious soft tissue calcifications or masses. Ever since Dr. Nunez lanced it, it drained yellow purulent material. The soft tissue swelling has gone down. The redness and edema have improved. Plan: Continue Keflex p.o. for a total of 7 days. That would be February 28. (2) Major depressive disorder, recurrent, severe with psychotic symptoms Impression: He was almost mute and exhibits Catatonia Since admission, the patient just stared at hospitalist and other staff after being asked a question, and occasionally softly mumbles an answer, to what was asked 2 questions ago. Other staff have told me that he does the same thing with them and he does not participate in any discussions. He did initially keep asking when Mer will visit and she visited him on 02/17. Hospitalist spoke to his caregiver, Mer in the room at his bedside on 02/17 and updated her. Mer by phone on 02/16 stated that he has worsened since 2010, goes to a psychiatrist, has had his psychiatric meds adjusted and we do have the current proper medication list. Mer said that when he stares at you. "it is because the people that are in his body do not like what they are hearing". Therefore, when he is staring, his symptoms are not under control. Mer said this is his catatonia. Mer said that the patient can no longer make decisions for himself, and she has to remind him and cue him multiple times to do something. She is working with the pt's daughter Christina, and the patient's registered nurse hh case manager, trying to get him permanent placement. At home he takes Risperdal 3 mg p.o. twice daily. That was resumed. But then discontinued due to sedation. February 11February 19 he was unhappy and describing discomfort in his rectum or his back. On examination I saw some small linear fissures. He is still getting up as much as he did yesterday. I resumed his Risperdal 3 mg p.o. twice a day 02/19 and not improved. I had initially to order telepsych 02/19 But through miscommunication, nursing had not followed through on that. I think the nursing on day shift did not realize that it was their responsibility to make it happen. 02/[address] Lawrence, his psychiatrist. She is [phone]. She said that she has been seeing him off and on for over a year, remotely, over Zoom. She last saw him on Zoom May 2022 right before she went on maternity leave. Before she went on maternity leave, he was functioning well. Minimal psychosis. Mild depression. He was on sertraline. She came back from maternity leave and immediately noticed that he had a substantial change 6 to 7 months later. He was hallucinating, falling, having episodes of defecation and urination all over the floor in his house. He felt that aliens, or Indians, or other individuals in his life were putting stuff up his rectum and he was desperate to pull it out but he just could not pull them out. At that time he was using excessive, excessive cannabis so they had him stop it for 2 months and he did not get any better. No clear reason of why he was falling. He then started sliding into being mute. Unresponsive. 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 Seroquel had no effect, benzodiazepines for the mutism had no effect, sertraline had no effect. He then started getting extraparametal signs on Risperdal 3 mg p.o. 3 times daily so she decreased it to 3 mg twice daily. In spite of all this, the muteness has become more and more predominant. Benzodiazepines usually help but Ativan did not help. So what I am describing to her is exactly what she was seen. She was in the process of speaking to his field case manager. They were working on a more intensive environment and placement for him because he was not going to be able to succeed living at home with his child care assistant/ex-girlfriend. The field case manager is named Mikaela Irving and her number is [phone], extension [phone]. Dr. Lawrence does feel that the patient would benefit from an inpatient stay. But his caregiver says that did not work a year ago. He was only okay for a couple of days and then he started regressing again. However Dr. Lawrence feels that stabilization of his mood, and his psychosis would be beneficial before he is placed in any permanent residential situation. February 21, I gave him Zyprexa as he increasingly spiraled with his agitation of going to the bathroom, getting out of bed with the IV pole in place. It seems to have helped. He slept for a few hours, and was quiet for the rest of the afternoon. 02/22 at 3 in the morning he did require intervention. 02/22 in the morning he was looking at me, and is more aware of his environment, is not agitated, and actually speaking full sentences. 02/23-today are remarkable in comparison to the catatonia from before. Getting out of bed on his own. On his own will grab the walker to go walk down the hallway. Speaking to me, speaking to the nurses. Asking to go home. He continues to be mobile, but needs supervision. Impulsive. Needs repetitive prompts to keep him focussed. PT has seen him again. They still feel he needs 24 supervision. He has been on Cymbalta since February 15. That was his home medication continued. He has been on Zyprexa ODT since February 23. Prior to that he was on 2 days of 5 mg IM zyprexa. He is not sedated. He has not shown extrapyramidal symptoms. He is also on Ativan sublingual 0.5 mg twice a day. I did order Haldol 2 mg IM to be used in the middle of the night but he has not needed that. Plan: Continue his Cymbalta, Zyprexa, Ativan. It seems to be the combination is working for him. When he gets out of the hospital he should follow-up with his psychiatrist, Dr. Lawrence. At this point he is medically stable. Social work is working on a plan for discharge. We do not know if that is can be going home to his girlfriend. However she states that she cannot take care of him 24/. Prior to his admission his field case manager with his psychiatrist were working on permanent place ment from an inpatient psychiatric [facility]. I do not know for good to have to go back to that plan. Or if he can go back home now that he is awake and alert. But I still would not leave him alone. (2) Rhabdomyolysis resolved. Resolved and I believe he is a new baseline creatinine. CPK on admission was [id number]>>[id number]>> [id number] by February 23. I stopped his IV fluids February 21 because he kept on pulling on the IV,, and the IV pole would also get tangled. It was becoming a fall risk. Plan: continue to encourage liquid po intake. Qualifiers: Rhabdomyolysis type: traumatic (3) Left arm swelling The appearance is that of dependent edema, perhaps he laid on that arm when he slept. Ultrasound duplex Doppler was done on February 18 to make sure he did not have a DVT. That study was negative. He continues to have left arm edema and left hand edema. But there is no redness, no heat. He can flex and extend at the elbow and at the wrist. Fingers look like sausages. Skin is pink. Good capillary refill. Temperature of the arm and the hand is normal. (4) ANGELO (acute kidney injury)/hypokalemia Conclusion/Plan: On admission, he was visibly dehydrated clinically. His BUN/creat have improved from admission, since iv fluids were started. His baseline creat is 1.1 (records were reviewed). Since admission, 2.1>> 1.7>> 1.6>> 1.5>> 1.4>>1.3 since 02/20. This creatintine may be his new baseline. This Angelo is likely from underlying volume depletion in addition to the rhabdo. IVF stopped 02/21. K is normal since 02/24. Plan: Avoid nephrotoxins I have personally spoken to nursing and asked her to please encourage as much water intake as he would take. Follow BMP daily for a few more days then go to less frequent labs. (5) Abrasions of multiple sites Conclusion/Plan: As per photos taken by nursing Plan: We will provide topical care where necessary (6) Fall at home Conclusion/Plan: Unclear why this gentleman keeps on falling at home. His caregiver wonders if he just forgets to use his walker and that is why he falls. So far his falls are witnessed. They are mechanical falls. There is no syncope. There is no orthostatic component to them. They are not seizures. Here, he is watched carefully by nursing. No falls. And he gets up multiple times out of bed. He initially had orthostatic vital signs being checked when he got here. Those have been discontinued. The only thing we have seen is slight ataxia. And he is impulsive. So he has poor insight and may be putting himself in situations where he falls. Social work is working closely with his caregiver. Trying to begin formulating some plans for this gentlemen's future. I have forwarded the contact for his field case manager, Mikaela, to them. (7) Buprenorphine dependence Conclusion/Plan: As per history, this is for chronic back pain. I am concerned that this may be over sedating him and adding to the falls. In addition, pharmacy learned today that his last prescription was written by his PCP 1 year ago, it was ordered for 13 weeks, so he should have run out many months ago, however there are still several patches available in the box that K at brought from home. We therefore suspect that he was not getting patches on a routine scheduled basis, probably just haphazardly. Plan: Will not reorder buprenorphine patches q week (8) DM type 2 (diabetes mellitus, type 2) Conclusion/Plan: He is on metformin at home. His A1c came back very good at 6.3. He is eating 100% of his meals. Metformin resumed February 22. Fasting glucose was 105 on February 24. Today is 87. Plan: Continue diabetic diet Continue fingersticks only in the morning (9) Poor hygiene One of the examples Mer described to me was that she needs to wipe his gilliam after he eats because he is so messy. He is less able to feed himself over just this past year. Here, he continues to be quite a messy eater. Food on the table, food on the floor. But he is eating. His eyelashes had crusted debris. Unknown period of time that he was laying on the floor with his head under the bed, until KMarkat found him that way and needed to lift him. He completed 7 days of Garamycin (10) Abnormal EKG Conclusion/Plan: This patient has an abnromal EKG showing early R/S transition which could signify cor pulmonale. He had the same abnormal EKG findings 2 months ago on admission An Echo was done to check if he has cor pulmonale, and it showed: an essentially normal heart, with normal LV size and systolic function but grade 1 diastolic function present and normal RV size and function were seen. (11) Small rectal fissures Hydrocortisone mixture with lidocaine mixture and apply every 3-4 hours as needed was started 02/19 but he is not really able to tell me if this helps. Still not really able to tell me if he does not. This patient was using his fingers to disimpact himself to get "those things" out of his rectum. So I wonder if the fissures I was seeing were actually abrasions from his fingernail
[2023-02-26] MEDS: HYDROCORTISONE 1% CREAM 28 GM TUBE TOP SCH ×3 (05:30→21:01)
[2023-02-26] MEDS: cephALEXin 250 MG CAPSULE PO SCH ×3 (05:30→17:10)
[2023-02-26 05:46] LABS: BASOPHILS % (AUTO) 0.6 %; EOSINOPHILS # (AUTO) 0.3 10^3/uL (0.0-0.7); EOSINOPHILS % (AUTO) 3.9 %; HCT - HEMATOCRIT 34.3 % (42.0-52.0); HGB - HEMOGLOBIN 11.2 g/dL (14.0-18.0); LYMPHOCYTES # (AUTO) 1.8 10^3/uL (1.5-3.5); LYMPHOCYTES % (AUTO) 25.9 %; MEAN CORPUSCULAR HEMOGLOBIN 29.5 pg (27.0-31.0); MEAN CORPUSCULAR HGB CONC 32.7 g/dL (32.0-36.0); MEAN CORPUSCULAR VOLUME 90.3 fL (80.0-94.0); MEAN PLATELET VOLUME 8.9 fL (7.4-11.4); MONOCYTES # (AUTO) 0.5 10^3/uL (0.0-1.0); MONOCYTES % (AUTO) 7.4 %; NEUTROPHILS # (AUTO) 4.3 10^3/uL (1.5-6.6); NEUTROPHILS % (AUTO) 61.9 %; PLT - PLATELET COUNT 310 10^3/uL (130-450); RED CELL DISTRIBUTION WIDTH 12.9 % (12.0-15.0); WHITE BLOOD COUNT 6.9 x10^3/uL (4.8-10.8)
[2023-02-26 05:58] LABS: CALCIUM 9.2 mg/dL (8.5-10.3); CREATININE 1.4 mg/dL (0.6-1.2); POTASSIUM 3.8 mmol/L (3.5-5.0)
[2023-02-26] MEDS: ASPIRIN EC 81 MG TABLET PO SCH (09:08)
[2023-02-26] MEDS: DULoxetine 30 MG CAPSULE PO SCH (09:08)
[2023-02-26] MEDS: OLANZapine ODT 5 MG TABLET TL SCH ×2 (09:08→20:57)
[2023-02-26] MEDS: LORazepam 0.5 MG TABLET SL SCH ×2 (09:08→20:58)
[2023-02-26] MEDS: SENNA 8.6 MG TABLET PO SCH ×2 (09:08→17:19)
[2023-02-26] MEDS: DOCUSATE SODIUM 250 MG CAPSULE PO SCH ×2 (09:08→17:18)
[2023-02-26] MEDS: polyethylene glycoL 3350 17 GM PACKET PO SCH (09:08)
[2023-02-26] MEDS: MULTIVITAMIN W/MINERALS TABLET PO SCH (09:09)
[2023-02-26] MEDS: SODIUM CHLORIDE FLUSH 0.9% 10 ML SYRINGE IVP SCH ×2 (09:09→18:12)
[2023-02-26] MEDS: MAGNESIUM OXIDE 400 MG TABLET PO SCH (09:12)
[2023-02-26] MEDS: FLUTICASONE NASAL SPRAY NAS SCH (09:14)
[2023-02-26] MEDS: metFORMIN 500 MG TABLET PO SCH ×2 (09:17→17:19)
[2023-02-26] MEDS: LIDOCAINE JELLY 2% 6 ML JEL.PF.APP TOP PRN (13:59)
--- NOTE | 2023-02-26 15:56 | PROVIDER PROGRESS NOTE ---
Assessment/Plan - Problem List (1) Toe infection Assessment/Plan: No fever. He really did not have any systemic complaints of infection. He did not even tell me it hurts. Plain film foot x-ray of the third toe on the right foot did not have any significant abnormalities. No fractures or dislocations. No suspicious bony lesions. No suspicious soft tissue calcifications or masses. Ever since Dr. Nunez lanced it, and it drained yellow purulent material, the soft tissue swelling has gone down and the redness and edema have improved. Plan: Continue Keflex p.o. for a total of 7 days. That would be February 28. (2) Major depressive disorder, recurrent, severe with psychotic symptoms Impression: At admission, the patient just stared at hospitalist provider and other staff after being asked a question, and occasionally softly mumbled an answer, to what was asked 2 questions ago. He did not participate in any discussions. He did initially keep asking when Mer will visit and she visited him on 02/17. I spoke to his caregiver, Mer in the room at his bedside on 02/17 and updated her. I also spoke to Mer by phone on 02/16, who stated that he has worsened since 2010, he goes to a psychiatrist, has had his psychiatric meds adjusted and we do have the current proper medication list. Mer said that when he stares at you. "it is because the people that are in his body do not like what they are hearing". Therefore, when he is staring, his symptoms are not under control. Mer said this is his catatonia. Mer said that the patient can no longer make decisions for himself, and she has to remind him and cue him multiple times to do something. She is working with the pt's daughter Christina, and the patient's caser, trying to get him permanent placement. At home he takes Risperdal 3 mg p.o. twice daily. That was resumed. But then discontinued due to sedation. February 18 & February 19, he was unhappy and describing discomfort in his rectum and we saw some small linear rectal fissures. We resumed his Risperdal 3 mg p.o. twice a day on 02/19 and he mentation and impulsivity did not improved. Hospitalist had initially ordered telepsych 02/19 But through miscommunication, nursing had not followed through on that. I think the nursing on day shift did not realize that it was their responsibility to make it happen. On 02/[address] Lawrence, his psychiatrist, at [phone]. She said that she has been seeing him off and on for over a year, remotely, over Zoom. She last saw him on Zoom May 2022 right before she went on maternity leave, when he was functioning well. He had minimal psychosis. Mild depression. He was on sertraline. She came back from maternity leave and immediately noticed that he had a substantial change those 6 to 7 months later. He was hallucinat ing, falling, having episodes of defecation and urination all over the floor in his house. He felt that aliens, or Indians, or other individuals in his life were putting stuff up his rectum and he was desperate to pull it out but he just could not pull them out. At that time he was using excessive, excessive cannabis so they had him stop it for 2 months and he did not get any better. No clear reason of why he was falling. He then started sliding into being mute and unresponsive. 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 Seroquel had no effect, benzodiazepines for the mutism had no effect, sertraline had no effect. He then started getting extraparamidal signs on Risperdal 3 mg p.o. 3 times daily so she decreased it to 3 mg twice daily. In spite of all this, the muteness has become more and more predominant. Benzodiazepines usually help but Ativan did not help. So what (the last) Hospitalist described to her is exactly what she was seen. She was in the process of speaking to his nurse case management. They were working on a more intensive environment and placement for him, because he was not going to be able to succeed living at home with his intensive care nurse/ex-girlfriend. The nurse case management is named Mikaela Irving and her number is [phone], extension [phone]. Dr. Lawrence does feel that the patient would benefit from an inpatient stay. B ut his caregiver says that did not work a year ago. He was only okay for a couple of days and then he started regressing again. However Dr. Lawrence feels that stabilization of his mood, and his psychosis would be beneficial before he is placed in any permanent residential situation. On February 21, we gave him Zyprexa as he was increasingly spiraling with his agitation of going to the bathroom, getting out of bed with the IV pole in place. It seems to have helped. He slept for a few hours, and was quiet for the rest of the afternoon. On 02/22 at 3 in the morning, he did require intervention, then when he was looking at the last Hospitalist, he was more aware of his environment, was not agitated, and actually was speaking full sentences. Since 02/23, he has been remarkably better in comparison to the catatonia from before. He is getting out of bed on his own. On his own, he will grab the walker to go walk down the hallway. Speaking to me, speaking to the nurses. Asking to go home. He continues to be mobile, but needs supervision. He is very impulsive. Needs repetitive prompts to keep him focused. PT has seen him again. They still feel he needs 17/06 supervision. He has been on Cymbalta since February 15. That was his home medication continued. He has been on Zyprexa ODT since February 23. Prior to that he was on 2 days of 5 mg IM zyprexa. He is not sedated. He has not shown extrapyramidal symptoms. He is also on Ativan sublingual 0.5 mg twice a day. We did order Haldol 2 mg prn (mostly to be used in the middle of the night) if needed for agitation. Plan: Continue his Cymbalta, Zyprexa, Ativan. It seems to be the combination that is working for him. When he gets out of the hospital he should follow-up with his psychiatrist, Dr. Lawrence. At this point he is medically stable. Social work is working on a plan for discharge. We do not think he can go home to his girlfriend because she states that she cannot take care of him 24. Prior to this admission, his nurse case management with his psychiatrist were working on permanent placement in an inpatient psychiatric half-way. I do not know if they will go back to that plan, or if he can go back home, but he still cannot be left alone. 3) Catatonia He was almost mute and exhibited catatonia This has resolved as described in #1, on the meds described in #1 4) Schizophrenia As per Hx. 5) Left arm swelling The appearance is that of dependent edema, perhaps he laid on that arm when he slept. Ultrasound duplex Doppler was done on February 18 to make sure he did not have a DVT. That study was negative. He continues to have left arm edema and left hand edema. But there is no redness, no heat. He can flex and extend at the elbow and at the wrist. Fingers look like sausages. Skin is pink. Good capillary refill. Temperature of the arm and the hand is normal. 6) MILTON (acute kidney injury)/hypokalemia Conclusion/Plan: On admission, he was visibly dehydrated clinically. His BUN/creat have improved from admission, since iv fluids were started. His baseline creat is 1.1 (records were reviewed). Since admission, 2.1>> 1.7>> 1.6>> 1.5>> 1.4>>1.3 since 02/20. This creatintine may be his new baseline. This Milton is likely from underlying volume depletion in addition to the rhabdo. IVF stopped 02/21. K is normal since 02/24. Plan: Avoid nephrotoxins Encourage fluid intake Follow BMP intermittently 7) Abrasions of multiple sites Conclusion/Plan: As per photos taken by nursing Plan: We will provide topical care where necessary 8) Fall at home Conclusion/Plan: Unclear why this gentleman kept on falling at home. His caregiver wonders if he just forgot to use his walker and that is why he falls. They were mechanical falls. There was no syncope. There was no orthostatic component to them. They are not seizures. Here, he is watched carefully by nursing. He has had no falls. And he gets up multiple times out of bed. He initially had orthostatic vital signs being checked when he got here. Those have been discontinued. The only thing we have seen is slight ataxia. And he is impulsive. So he has poor insight and may be putting himself in situations where he falls. Social work is working closely with his caregiver, trying to formulate plans for this gentlemen. His daughter will be his DPOA. 9) Buprenorphine dependence Conclusion/Plan: As per history, this was ordered for chronic back pain. We now think this was over sedating him and adding to the falls. In addition, pharmacy learnedthat his last prescription was written by his PCP 1 year ago, it was ordered for 13 weeks, so he should have run out many months ago, however there are still several patches available in the box that Mer brought from home. We therefore suspect that he was not getting patches on a routine scheduled basis, probably just haphazardly. Plan: He has had no c/o back pain, and we didl not reorder buprenorphine patches q week 10) DM type 2 (diabetes mellitus, type 2) Conclusion/Plan: He was on metformin at home. His A1c came back very good at 6.3. He is eating 100% of his meals. Metformin resumed February 22. Fasting glucose was 105 on February 24 it was as low as 87. Plan: Continue diabetic diet Continue fingersticks only in the morning 11) Poor hygiene One of the examples Mer described to me was that she needs to wipe his gilliam after he eats because he is so messy. He is less able to feed himself over just this past year. Here, he continues to be quite a messy eater. Food on the table, food on the floor. But he is eating. His eyelashes had crusted debris. Unknown period of time that he was laying on the floor with his head under the bed, until Mer found him that way and needed to lift him. He completed 7 days of Garamycin 12) Abnormal EKG Conclusion/Plan: This patient has an abnromal EKG showing early R/S transition which could signify cor pulmonale. He had the same abnormal EKG findings 2 months ago on admission An Echo was done to check if he has cor pulmonale, and it showed: an essentially normal heart, with normal LV size and systolic function but grade 1 diastolic function present and normal RV size and function were seen. 13) Small rectal fissures Hydrocortisone mixture with lidocaine mixture ordered to apply every 3-4 hours as needed, that was started 02/19, but he is not really able to tell us if this helps or not. This patient was using his fingers to disimpact himself to get " those things" out of his rectum. So I wonder if the fissures were actually abrasions from his fingernail 14) Rhabdomyolysis resolved. Resolved and I believe he is a new baseline creatinine. CPK on admission was [id number]>> [id number] by February 23. I stopped his IV fluids February 21 because he kept on pulling on the IV, and the IV pole would also get tangled. It was becoming a fall risk. Plan: continue to encourage liquid po intake. Qualifiers: Rhabdomyolysis type: traumatic - Current Meds Current Meds: Current Medications Generic Name Dose Route Start Last Admin Trade Name Freq PRN Reason Stop Dose Admin Acetaminophen 650 mg 02/15/23 19:57 02/25/23 16:30 Acetaminophen 325 Mg Tablet PO 650 mg Q4HR PRN Administration Pain or Fever > 38C (100.4F) Aspirin 81 mg 02/18/23 09:00 02/26/23 09:08 Aspirin Ec 81 Mg Tablet PO 81 mg DAILY ANGELA Administration Cephalexin 500 mg 02/22/23 20:00 02/26/23 12:26 Cephalexin 250 Mg Capsule PO 500 mg Q6HR ANGELA Administration Duloxetine HCl 30 mg 02/15/23 13:30 02/26/23 09:08 Duloxetine 30 Mg Capsule PO 30 mg DAILY ANGELA Administration Fluticasone Propionate 1 sprays 02/17/23 09:00 02/26/23 09:14 Fluticasone Nasal Lamont CRISTIAN 1 spray DAILY ANGELA Administration Haloperidol 2 mg 02/22/23 13:06 02/26/23 14:41 Haloperidol 5 Mg/Ml Vial IM 2 mg DAILY PRN Administration Agitation Hydrocortisone 1 applic 02/19/23 17:00 02/26/23 13:59 Hydrocortisone 1% Cream 28 Gm Tube TOP 1 applic TID ANGELA Administration Ibuprofen 600 mg 02/15/23 19:57 02/23/23 13:58 Ibuprofen 600 Mg Tablet PO 600 mg Q6HR PRN Administration MINOR PAIN Lidocaine HCl 1 ml 02/23/23 13:54 02/26/23 13:59 Lidocaine Jelly 2% 6 Ml Jel.Pf.Shanda TOP 1 ml TID PRN Administration anal itching pain Lorazepam 0.5 mg 02/21/23 21:00 02/26/23 09:08 Lorazepam 0.5 Mg Tablet SL 0.5 mg BID ANGELA Administration Magnesium Oxide 400 mg 02/16/23 08:00 02/26/23 09:12 Magnesium Oxide 400 Mg Tablet PO 400 mg DAILYWM ANGELA Administration Metformin HCl 1,000 mg 02/22/23 17:00 02/26/23 09:17 Metformin 500 Mg Tablet PO 1,000 mg BIDWM ANGELA Administration Multivitamins/Minerals 1 tab 02/18/23 09:00 02/26/23 09:09 Multivitamin W/Minerals Tablet PO 1 tab DAILYWM ANGELA Administration Olanzapine 5 mg 02/23/23 21:00 02/26/23 09:08 Olanzapine Odt 5 Mg Tablet TL 5 mg BID ANGELA Administration Polyethylene Glycol 17 gm 02/17/23 18:00 02/26/23 09:08 Polyethylene Glycol 3350 17 Gm Packet PO 17 gm DAILY ANGELA Administration Sodium Chloride 10 ml 02/14/23 17:00 02/26/23 09:09 Sodium Chloride Flush 0.9% 10 Ml Syringe IVP Not Given 0100,0900,1700 ANGELA - Lab Result Fish Bone Diagrams: 02/26/23 05:38 02/26/23 05:38 - Additional Planning My Orders: My Active Orders 02/26/23 17:00 Docusate Sodium 250Mg Capsule [Colace 250Mg Capsule] 250 - 500 mg PO BID Senna [Senokot] 8.6 - 17.2 mg PO BID Subjective - Subjective Nursing Reports: Other (He is slightly less impulsive today than yesterday. He is walking in the hallway using his own walker, appears very stable with good balance) Objective Vital Signs: Vital Signs - 24 hr 02/25/23 02/25/23 02/26/23 16:21 23:45 09:30 Temperature 36.5 C 36.6 C 36.5 C Heart Rate [ 68 70 54 L Brachial] Respiratory 18 18 18 Rate Blood Pressure 132/69 H 138/84 H 160/82 H [Right Brachial artery] O2 Saturation 99 98 92 02/26/23 11:00 Temperature Heart Rate [ 85 Brachial] Respiratory Rate Blood Pressure 130/70 [Right Brachial artery] O2 Saturation Oxygen O2 Source Room air I&O (Last 24 Hrs): Intake and Output Totals x24h 02/24/23 02/25/23 02/26/23 23:59 23:59 23:59 Intake Total 1160 1910 1200 Output Total 400 Balance 760 1910 1200 General: Alert HEENT: Mucous membr. moist/pink Neck: Supple Neuro: Alert, Non Focal Cardiovascular: Regular rate Respiratory: No respiratory distress Extremities: No clubbing, No edema, Other (Toe looks better) - Results Results: Laboratory Results WBC 6.9 x10^3/uL (4.8-10.8) 02/26/23 05:38 RBC 3.80 10^6/uL (4.70-6.10) L 02/26/23 05:38 Hgb 11.2 g/dL (14.0-18.0) L 02/26/23 05:38 Hct 34.3 % (42.0-52.0) L 02/26/23 05:38 MCV 90.3 fL (80.0-94.0) 02/26/23 05:38 MCH 29.5 pg (27.0-31.0) 02/26/23 05:38 MCHC 32.7 g/dL (32.0-36.0) 02/26/23 05:38 RDW 12.9 % (12.0-15.0) 02/26/23 05:38 Plt Count 310 10^3/uL (130-450) 02/26/23 05:38 MPV 8.9 fL (7.4-11.4) 02/26/23 05:38 Neut # (Auto) 4.3 10^3/uL (1.5-6.6) 02/26/23 05:38 Lymph # (Auto) 1.8 10^3/uL (1.5-3.5) 02/26/23 05:38 [place] # (Auto) 0.5 10^3/uL (0.0-1.0) 02/26/23 05:38 Eos # (Auto) 0.3 10^3/uL (0.0-0.7) 02/26/23 05:38 Baso # (Auto) 0.0 10^3/uL (0.0-0.1) 02/26/23 05:38 Absolute Nucleated RBC 0.00 x10^3/uL 02/26/23 05:38 Total Counted 100 02/14/23 03:15 Band Neuts % (Manual) 9 % (0-10) 02/14/23 03:15 Abnorm Lymph % (Manual) 0 % 02/14/23 03:15 Nucleated RBC % 0.0 /100WBC 02/26/23 05:38 Neutrophils # (Manual) 18.2 10^3/uL (1.5-6.6) H 02/14/23 03:15 Lymphocytes # (Manual) 1.0 10^3/uL (1.5-3.5) L 02/14/23 03:15 Monocytes # (Manual) 1.2 10^3/uL (0.0-1.0) H 02/14/23 03:15 Eosinophils # (Manual) 0.0 10^3/uL (0-0.7) 02/14/23 03:15 Basophils # (Manual) 0.0 10^3/uL (0-0.1) 02/14/23 03:15 Differential Comment MANUAL DIFFERENTIAL 02/14/23 03:15 Sodium 140 mmol/L (135-145) 02/26/23 05:38 Potassium 3.8 mmol/L (3.5-5.0) 02/26/23 05:38 Chloride 104 mmol/L (101-111) 02/26/23 05:38 Carbon Dioxide 27 mmol/L (21-32) 02/26/23 05:38 Anion Gap 9.0 (6-13) 02/26/23 05:38 BUN 17 mg/dL (6-20) 02/26/23 05:38 Creatinine 1.4 mg/dL (0.6-1.2) H 02/26/23 05:38 Estimated GFR (MDRD) 52 (>89) L 02/26/23 05:38 Glucose 106 mg/dL (70-100) H 02/26/23 05:38 Estimat Average Glucose 134 mg/dL (70-100) H 02/15/23 05:20 Hemoglobin A1c % 6.3 % (4.27-6.07) H 02/15/23 05:20 Calcium 9.2 mg/dL (8.5-10.3) 02/26/23 05:38 Magnesium 1.5 mg/dL (1.7-2.8) L 02/17/23 05:35 Total Bilirubin 0.8 mg/dL (0.2-1.0) 02/14/23 03:15 AST 155 IU/L (10-42) H 02/14/23 03:15 ALT 58 IU/L (10-60) 02/14/23 03:15 Alkaline Phosphatase 107 IU/L (42-121) 02/14/23 03:15 Total Creatine Kinase 440 IU/L (22-269) H 02/23/23 14:10 CK-MB (CK-2) 265.9 ng/mL (0.6-6.3) H 02/14/23 03:15 Total Protein 8.3 g/dL (6.7-8.2) H 02/14/23 03:15 Albumin 4.2 g/dL (3.2-5.5) 02/14/23 03:15 Globulin 4.1 g/dL (2.1-4.2) 02/14/23 03:15 Albumin/Globulin Ratio 1.0 (1.0-2.2) 02/14/23 03:15 Lipase 34 U/L (22-51) 02/14/23 03:15 TSH 1.21 uIU/mL (0.34-5.60) 02/14/23 03:15 Urine Color YELLOW 02/18/23 15:10 Urine Clarity CLEAR (CLEAR) 02/18/23 15:10 Urine pH 5.5 PH (5.0-7.5) 02/18/23 15:10 Ur Specific [place] 1.020 (1.002-1.030) 02/18/23 15:10 Urine Protein NEGATIVE mg/dL (NEGATIVE) 02/18/23 15:10 Urine Glucose (UA) NEGATIVE mg/dL (NEGATIVE) 02/18/23 15:10 Urine Ketones NEGATIVE mg/dL (NEGATIVE) 02/18/23 15:10 Urine Occult Blood MODERATE (NEGATIVE) H 02/18/23 15:10 Urine Nitrite NEGATIVE (NEGATIVE) 02/18/23 15:10 Urine Bilirubin NEGATIVE (NEGATIVE) 02/18/23 15:10 Urine Urobilinogen 0.2 (NORMAL) E.U./dL (NORMAL) 02/18/23 15:10 Ur Leukocyte Esterase TRACE (NEGATIVE) H 02/18/23 15:10 Urine RBC 11-25 /HPF (0-5) H 02/18/23 15:10 Urine WBC 6-10 /HPF (0-3) H 02/18/23 15:10 Ur Squamous Epith Cells RARE Squamous (<= Few) 02/18/23 15:10 Urine Bacteria None Seen /HPF (None Seen) 02/18/23 15:10 Urine Sperm PRESENT 02/18/23 15:10 Ur Microscopic Review INDICATED 02/14/23 10:34 Urine Culture Comments INDICATED 02/18/23 15:10 Urine Opiates Screen NEGATIVE (NEGATIVE) 02/14/23 10:34 Ur Oxycodone Screen NEGATIVE (NEGATIVE) 02/14/23 10:34 Urine Methadone Screen NEGATIVE (NEGATIVE) 02/14/23 10:34 Ur Propoxyphene Screen NEGATIVE (NEGATIVE) 02/14/23 10:34 Ur Barbiturates Screen NEGATIVE (NEGATIVE) 02/14/23 10:34 Ur Tricyclics Screen NEGATIVE (NEGATIVE) 02/14/23 10:34 Ur Phencyclidine Scrn NEGATIVE (NEGATIVE) 02/14/23 10:34 Ur Amphetamine Screen NEGATIVE (NEGATIVE) 02/14/23 10:34 U Methamphetamines Scrn NEGATIVE (NEGATIVE) 02/14/23 10:34 U Benzodiazepines Scrn NEGATIVE (NEGATIVE) 02/14/23 10:34 Urine Cocaine Screen NEGATIVE (NEGATIVE) 02/14/23 10:34 U Cannabinoids Screen POSITIVE (NEGATIVE) H 02/14/23 10:34 Ethyl Alcohol < 5.0 mg/dL 02/14/23 03:15
[2023-02-26] MEDS: ACETAMINOPHEN 325 MG TABLET PO PRN ×2 (17:19→20:57)
[2023-02-27] MEDS: SODIUM CHLORIDE FLUSH 0.9% 10 ML SYRINGE IVP SCH (00:35)
[2023-02-27] MEDS: cephALEXin 250 MG CAPSULE PO SCH ×4 (00:35→17:10)
[2023-02-27] MEDS: HYDROCORTISONE 1% CREAM 28 GM TUBE TOP SCH (06:16)
[2023-02-27] MEDS: metFORMIN 500 MG TABLET PO SCH ×2 (08:36→17:10)
[2023-02-27] MEDS: OLANZapine ODT 5 MG TABLET TL SCH ×2 (08:36→21:13)
[2023-02-27] MEDS: ASPIRIN EC 81 MG TABLET PO SCH (08:37)
[2023-02-27] MEDS: MULTIVITAMIN W/MINERALS TABLET PO SCH (08:37)
[2023-02-27] MEDS: MAGNESIUM OXIDE 400 MG TABLET PO SCH (08:37)
[2023-02-27] MEDS: SENNA 8.6 MG TABLET PO SCH ×2 (08:38→21:13)
[2023-02-27] MEDS: DOCUSATE SODIUM 250 MG CAPSULE PO SCH ×2 (08:38→21:12)
[2023-02-27] MEDS: LORazepam 0.5 MG TABLET SL SCH ×2 (08:39→21:13)
[2023-02-27] MEDS: polyethylene glycoL 3350 17 GM PACKET PO SCH (08:39)
[2023-02-27] MEDS: DULoxetine 30 MG CAPSULE PO SCH (08:47)
[2023-02-27] MEDS: FLUTICASONE NASAL SPRAY NAS SCH (08:50)
[2023-02-27] MEDS ORDERED: HYDROCORTISONE 1% CREAM 28 GM TUBE TOP PRN (12:07)
[2023-02-27] MEDS: ACETAMINOPHEN 325 MG TABLET PO PRN (17:09)
--- NOTE | 2023-02-27 18:38 | PROVIDER PROGRESS NOTE ---
Assessment/Plan - Problem List (1) Toe infection Assessment/Plan: No fever. He really did not have any systemic complaints of infection. He did not even tell me it hurts. Plain film foot x-ray of the third toe on the right foot did not have any significant abnormalities. No fractures or dislocations. No suspicious bony lesions. No suspicious soft tissue calcifications or masses. Ever since Dr. Nunez lanced it, and it drained yellow purulent material, the soft tissue swelling has gone down and the redness and edema have improved. Plan: Continue Keflex p.o. for a total of 7 days. That would be February 28. (2) Major depressive disorder, recurrent, severe with psychotic symptoms Impression: At admission, the patient just stared at hospitalist provider and other staff after being asked a question, and occasionally softly mumbled an answer, to what was asked 2 questions ago. He did not participate in any discussions. He did initially keep asking when Mer will visit and she visited him on 02/17. I spoke to his caregiver, Mer in the room at his bedside on 02/17 and updated her. I also spoke to Mer by phone on 02/16, who stated that he has worsened since 2010, he goes to a psychiatrist, has had his psychiatric meds adjusted and we do have the current proper medication list. Mer said that when he stares at you. "it is because the people that are in his body do not like what they are hearing". Therefore, when he is staring, his symptoms are not under control. Mer said this is his catatonia. Mer said that the patient can no longer make decisions for himself, and she has to remind him and cue him multiple times to do something. She is working with the pt's daughter Christina, and the patient's gearcase assembler, trying to get him permanent placement. At home he takes Risperdal 3 mg p.o. twice daily. That was resumed. But then discontinued due to sedation. February 18 & February 19, he was unhappy and describing discomfort in his rectum and we saw some small linear rectal fissures. We resumed his Risperdal 3 mg p.o. twice a day on 02/19 and he mentation and impulsivity did not improved. Hospitalist had initially ordered telepsych 02/19 But through miscommunication, nursing had not followed through on that. I think the nursing on day shift did not realize that it was their responsibility to make it happen. On 02/[address] Lawrence, his psychiatrist, at [phone]. She said that she has been seeing him off and on for over a year, remotely, over Zoom. She last saw him on Zoom May 2022 right before she went on maternity leave, when he was functioning well. He had minimal psychosis. Mild depression. He was on sertraline. She came back from maternity leave and immediately noticed that he had a substantial change those 6 to 7 months later. He was hallucinat ing, falling, having episodes of defecation and urination all over the floor in his house. He felt that aliens, or Indians, or other individuals in his life were putting stuff up his rectum and he was desperate to pull it out but he just could not pull them out. At that time he was using excessive, excessive cannabis so they had him stop it for 2 months and he did not get any better. No clear reason of why he was falling. He then started sliding into being mute and unresponsive. 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 Seroquel had no effect, benzodiazepines for the mutism had no effect, sertraline had no effect. He then started getting extraparamidal signs on Risperdal 3 mg p.o. 3 times daily so she decreased it to 3 mg twice daily. In spite of all this, the muteness has become more and more predominant. Benzodiazepines usually help but Ativan did not help. So what (the last) Hospitalist described to her is exactly what she was seen. She was in the process of speaking to his employment case manager. They were working on a more intensive environment and placement for him, because he was not going to be able to succeed living at home with his college and career counselor/ex-girlfriend. The employment case manager is named Mikaela Irving and her number is [phone], extension [phone]. Dr. Lawrence does feel that the patient would benefit from an inpatient stay. B ut his caregiver says that did not work a year ago. He was only okay for a couple of days and then he started regressing again. However Dr. Lawrecne feels that stabilization of his mood, and his psychosis would be beneficial before he is placed in any permanent residential situation. On February 21, we gave him Zyprexa as he was increasingly spiraling with his agitation of going to the bathroom, getting out of bed with the IV pole in place. It seems to have helped. He slept for a few hours, and was quiet for the rest of the afternoon. On 02/22 at 3 in the morning, he did require intervention, then when he was looking at the last Hospitalist, he was more aware of his environment, was not agitated, and actually was speaking full sentences. Since 02/23, he has been remarkably better in comparison to the catatonia from before. He is getting out of bed on his own. On his own, he will grab the walker to go walk down the hallway. Speaking to me, speaking to the nurses. Asking to go home. He continues to be mobile, but needs supervision. He is very impulsive. Needs repetitive prompts to keep him focused. PT has seen him again. They still feel he needs 17/06 supervision. He has been on Cymbalta since February 15. That was his home medication continued. He has been on Zyprexa ODT since February 23. Prior to that he was on 2 days of 5 mg IM zyprexa. He is not sedated. He has not shown extrapyramidal symptoms. He is also on Ativan sublingual 0.5 mg twice a day. We did order Haldol 2 mg prn (mostly to be used in the middle of the night) if needed for agitation. Plan: Continue his Cymbalta, Zyprexa, Ativan. It seems to be the combination that is working for him. When he gets out of the hospital he should follow-up with his psychiatrist, Dr. Lawrence. At this point he is medically stable. Social work is working on a plan for discharge. We do not think he can go home to his girlfriend because she states that she cannot take care of him 24. Prior to this admission, his employment case manager with his psychiatrist were working on permanent placement in an inpatient psychiatric [place] [facility]. I do not know if they will go back to that plan, or if he can go back home, but he still cannot be left alone. 3) Catatonia He was almost mute and exhibited catatonia This has resolved as described in #1, on the meds described in #1 4) Schizophrenia As per Hx. 5) Left arm swelling The appearance is that of dependent edema, perhaps he laid on that arm when he slept. Ultrasound duplex Doppler was done on February 18 to make sure he did not have a DVT. That study was negative. He continues to have left arm edema and left hand edema. But there is no redness, no heat. He can flex and extend at the elbow and at the wrist. Fingers look like sausages. Skin is pink. Good capillary refill. Temperature of the arm and the hand is normal. 6) MILTON (acute kidney injury)/hypokalemia Conclusion/Plan: On admission, he was visibly dehydrated clinically. His BUN/creat have improved from admission, since iv fluids were started. His baseline creat is 1.1 (records were reviewed). Since admission, 2.1>> 1.7>> 1.6>> 1.5>> 1.4>>1.3 since 02/20. This creatintine may be his new baseline. This [place] is likely from underlying volume depletion in addition to the rhabdo. IVF stopped 02/21. K is normal since 02/24. Plan: Avoid nephrotoxins Encourage fluid intake Follow BMP intermittently 7) Abrasions of multiple sites Conclusion/Plan: As per photos taken by nursing Plan: We will provide topical care where necessary 8) Fall at home Conclusion/Plan: Unclear why this gentleman kept on falling at home. His caregiver wonders if he just forgot to use his walker and that is why he falls. They were mechanical falls. There was no syncope. There was no orthostatic component to them. They are not seizures. Here, he is watched carefully by nursing. He has had no falls. And he gets up multiple times out of bed. He initially had orthostatic vital signs being checked when he got here. Those have been discontinued. The only thing we have seen is slight ataxia. And he is impulsive. So he has poor insight and may be putting himself in situations where he falls. Social work is working closely with his caregiver, trying to formulate plans for this gentlemen. His daughter will be his DPOA. 9) Buprenorphine dependence Conclusion/Plan: As per history, this was ordered for chronic back pain. We now think this was over sedating him and adding to the falls. In addition, pharmacy learnedthat his last prescription was written by his PCP 1 year ago, it was ordered for 13 weeks, so he should have run out many months ago, however there are still several patches available in the box that Mer brought from home. We therefore suspect that he was not getting patches on a routine scheduled basis, probably just haphazardly. Plan: He has had no c/o back pain, and we didl not reorder buprenorphine patches q week 10) DM type 2 (diabetes mellitus, type 2) Conclusion/Plan: He was on metformin at home. His A1c came back very good at 6.3. He is eating 100% of his meals. Metformin resumed February 22. Fasting glucose was 105 on February 24 it was as low as 87. Plan: Continue diabetic diet Continue fingersticks only in the morning 11) Poor hygiene One of the examples Mer described to me was that she needs to wipe his gilliam after he eats because he is so messy. He is less able to feed himself over just this past year. Here, he continues to be quite a messy eater. Food on the table, food on the floor. But he is eating. His eyelashes had crusted debris. Unknown period of time that he was laying on the floor with his head under the bed, until Mer found him that way and needed to lift him. He completed 7 days of Garamycin 12) Abnormal EKG Conclusion/Plan: This patient has an abnromal EKG showing early R/S transition which could signify cor pulmonale. He had the same abnormal EKG findings 2 months ago on admission An Echo was done to check if he has cor pulmonale, and it showed: an essentially normal heart, with normal LV size and systolic function but grade 1 diastolic function present and normal RV size and function were seen. 13) Small rectal fissures Hydrocortisone mixture with lidocaine mixture ordered to apply every 3-4 hours as needed, that was started 02/19, but he is not really able to tell us if this helps or not. This patient was using his fingers to disimpact himself to get " those things" out of his rectum. So I wonder if the fissures were actually abrasions from his fingernail 14) Rhabdomyolysis resolved. Resolved and I believe he is a new baseline creatinine. CPK on admission was [id number]>> [id number] by February 23. I stopped his IV fluids February 21 because he kept on pulling on the IV, and the IV pole would also get tangled. It was becoming a fall risk. Plan: continue to encourage liquid po intake. Qualifiers: Rhabdomyolysis type: traumatic - Current Meds Current Meds: Current Medications Generic Name Dose Route Start Last Admin Trade Name Freq PRN Reason Stop Dose Admin Acetaminophen 650 mg 02/15/23 19:57 02/27/23 17:09 Acetaminophen 325 Mg Tablet PO 650 mg Q4HR PRN Administration Pain or Fever > 38C (100.4F) Aspirin 81 mg 02/18/23 09:00 02/27/23 08:37 Aspirin Ec 81 Mg Tablet PO 81 mg DAILY ANGELA Administration Cephalexin 500 mg 02/22/23 20:00 02/27/23 17:10 Cephalexin 250 Mg Capsule PO 500 mg Q6HR ANGELA Administration Docusate Sodium 250 - 500 mg 02/26/23 17:00 02/27/23 08:38 Docusate Sodium 250 Mg Capsule PO 250 mg BID ANGELA Administration Duloxetine HCl 30 mg 02/15/23 13:30 02/27/23 08:47 Duloxetine 30 Mg Capsule PO 30 mg DAILY ANGELA Administration Fluticasone Propionate 1 sprays 02/17/23 09:00 02/27/23 08:50 Fluticasone Nasal [place] CRISTIAN 1 spray DAILY ANGELA Administration Haloperidol 2 mg 02/22/23 13:06 02/26/23 14:41 Haloperidol 5 Mg/Ml Vial IM 2 mg DAILY PRN Administration Agitation Ibuprofen 600 mg 02/15/23 19:57 02/23/23 13:58 Ibuprofen 600 Mg Tablet PO 600 mg Q6HR PRN Administration MINOR PAIN Lidocaine HCl 1 ml 02/23/23 13:54 02/26/23 13:59 Lidocaine Jelly 2% 6 Ml Jel.Pf.Shanda TOP 1 ml TID PRN Administration anal itching pain Lorazepam 0.5 mg 02/21/23 21:00 02/27/23 08:39 Lorazepam 0.5 Mg Tablet SL 0.5 mg BID ANGELA Administration Magnesium Oxide 400 mg 02/16/23 08:00 02/27/23 08:37 Magnesium Oxide 400 Mg Tablet PO 400 mg DAILYWM ANGELA Administration Metformin HCl 1,000 mg 02/22/23 17:00 02/27/23 17:10 Metformin 500 Mg Tablet PO 1,000 mg BIDWM ANGELA Administration Multivitamins/Minerals 1 tab 02/18/23 09:00 02/27/23 08:37 Multivitamin W/Minerals Tablet PO 1 tab DAILYWM ANGELA Administration Olanzapine 5 mg 02/23/23 21:00 02/27/23 08:36 Olanzapine Odt 5 Mg Tablet TL 5 mg BID ANGELA Administration Polyethylene Glycol 17 gm 02/17/23 18:00 02/27/23 08:39 Polyethylene Glycol 3350 17 Gm Packet PO 17 gm DAILY ANGELA Administration Senna 8.6 - 17.2 mg 02/26/23 17:00 02/27/23 08:38 Senna 8.6 Mg Tablet PO 8.6 mg BID ANGELA Administration - Lab Result Fish Bone Diagrams: 02/26/23 05:38 02/26/23 05:38 - Additional Planning My Orders: My Active Orders 02/27/23 12:07 Hydrocortisone 1% Cream [Hydrocortisone] 1 applic TOP TID PRN Subjective - Subjective Patient Reports: No Complaints Nursing Reports: Other (He is still taking the walker on his own and walking in the hallway but appears very comfortable doing that and has good balance when walk) Objective Vital Signs: Vital Signs - 24 hr 02/27/23 02/27/23 02/27/23 00:00 08:26 15:56 Temperature 36.3 C L 36.6 C 36.3 C L Heart Rate [ 59 L 64 81 Brachial] Respiratory 16 18 20 Rate Blood Pressure 95/51 L [Left Brachial artery] Blood Pressure 139/63 H 132/87 H [Right Brachial artery] O2 Saturation 95 98 98 Oxygen O2 Source Room air I&O (Last 24 Hrs): Intake and Output Totals x24h 02/25/23 02/26/23 02/27/23 23:59 23:59 23:59 Intake Total 1909 2159 1480 Output Total 400 Balance 1909 2159 1080 General: Alert, No acute distress HEENT: Mucous membr. moist/pink Neck: Supple Neuro: Alert, Non Focal Cardiovascular: Regular rate Respiratory: No respiratory distress Abdomen: No tenderness Extremities: No clubbing, No edema, Other (toe looks better) - Results Results: Laboratory Results WBC 6.9 x10^3/uL (4.8-10.8) 02/26/23 05:38 RBC 3.80 10^6/uL (4.70-6.10) L 02/26/23 05:38 Hgb 11.2 g/dL (14.0-18.0) L 02/26/23 05:38 Hct 34.3 % (42.0-52.0) L 02/26/23 05:38 MCV 90.3 fL (80.0-94.0) 02/26/23 05:38 MCH 29.5 pg (27.0-31.0) 02/26/23 05:38 MCHC 32.7 g/dL (32.0-36.0) 02/26/23 05:38 RDW 12.9 % (12.0-15.0) 02/26/23 05:38 Plt Count 310 10^3/uL (130-450) 02/26/23 05:38 MPV 8.9 fL (7.4-11.4) 02/26/23 05:38 Neut # (Auto) 4.3 10^3/uL (1.5-6.6) 02/26/23 05:38 Lymph # (Auto) 1.8 10^3/uL (1.5-3.5) 02/26/23 05:38 [place] # (Auto) 0.5 10^3/uL (0.0-1.0) 02/26/23 05:38 Eos # (Auto) 0.3 10^3/uL (0.0-0.7) 02/26/23 05:38 Baso # (Auto) 0.0 10^3/uL (0.0-0.1) 02/26/23 05:38 Absolute Nucleated RBC 0.00 x10^3/uL 02/26/23 05:38 Total Counted 100 02/14/23 03:15 Band Neuts % (Manual) 9 % (0-10) 02/14/23 03:15 Abnorm Lymph % (Manual) 0 % 02/14/23 03:15 Nucleated RBC % 0.0 /100WBC 02/26/23 05:38 Neutrophils # (Manual) 18.2 10^3/uL (1.5-6.6) H 02/14/23 03:15 Lymphocytes # (Manual) 1.0 10^3/uL (1.5-3.5) L 02/14/23 03:15 Monocytes # (Manual) 1.2 10^3/uL (0.0-1.0) H 02/14/23 03:15 Eosinophils # (Manual) 0.0 10^3/uL (0-0.7) 02/14/23 03:15 Basophils # (Manual) 0.0 10^3/uL (0-0.1) 02/14/23 03:15 Differential Comment MANUAL DIFFERENTIAL 02/14/23 03:15 Sodium 140 mmol/L (135-145) 02/26/23 05:38 Potassium 3.8 mmol/L (3.5-5.0) 02/26/23 05:38 Chloride 104 mmol/L (101-111) 02/26/23 05:38 Carbon Dioxide 27 mmol/L (21-32) 02/26/23 05:38 Anion Gap 9.0 (6-13) 02/26/23 05:38 BUN 17 mg/dL (6-20) 02/26/23 05:38 Creatinine 1.4 mg/dL (0.6-1.2) H 02/26/23 05:38 Estimated GFR (MDRD) 52 (>89) L 02/26/23 05:38 Glucose 106 mg/dL (70-100) H 02/26/23 05:38 Estimat Average Glucose 134 mg/dL (70-100) H 02/15/23 05:20 Hemoglobin A1c % 6.3 % (4.27-6.07) H 02/15/23 05:20 Calcium 9.2 mg/dL (8.5-10.3) 02/26/23 05:38 Magnesium 1.5 mg/dL (1.7-2.8) L 02/17/23 05:35 Total Bilirubin 0.8 mg/dL (0.2-1.0) 02/14/23 03:15 AST 155 IU/L (10-42) H 02/14/23 03:15 ALT 58 IU/L (10-60) 02/14/23 03:15 Alkaline Phosphatase 107 IU/L (42-121) 02/14/23 03:15 Total Creatine Kinase 440 IU/L (22-269) H 02/23/23 14:10 CK-MB (CK-2) 265.9 ng/mL (0.6-6.3) H 02/14/23 03:15 Total Protein 8.3 g/dL (6.7-8.2) H 02/14/23 03:15 Albumin 4.2 g/dL (3.2-5.5) 02/14/23 03:15 Globulin 4.1 g/dL (2.1-4.2) 02/14/23 03:15 Albumin/Globulin Ratio 1.0 (1.0-2.2) 02/14/23 03:15 Lipase 34 U/L (22-51) 02/14/23 03:15 TSH 1.21 uIU/mL (0.34-5.60) 02/14/23 03:15 Urine Color YELLOW 02/18/23 15:10 Urine Clarity CLEAR (CLEAR) 02/18/23 15:10 Urine pH 5.5 PH (5.0-7.5) 02/18/23 15:10 Ur Specific [place] 1.020 (1.002-1.030) 02/18/23 15:10 Urine Protein NEGATIVE mg/dL (NEGATIVE) 02/18/23 15:10 Urine Glucose (UA) NEGATIVE mg/dL (NEGATIVE) 02/18/23 15:10 Urine Ketones NEGATIVE mg/dL (NEGATIVE) 02/18/23 15:10 Urine Occult Blood MODERATE (NEGATIVE) H 02/18/23 15:10 Urine Nitrite NEGATIVE (NEGATIVE) 02/18/23 15:10 Urine Bilirubin NEGATIVE (NEGATIVE) 02/18/23 15:10 Urine Urobilinogen 0.2 (NORMAL) E.U./dL (NORMAL) 02/18/23 15:10 Ur Leukocyte Esterase TRACE (NEGATIVE) H 02/18/23 15:10 Urine RBC 11-25 /HPF (0-5) H 02/18/23 15:10 Urine WBC 6-10 /HPF (0-3) H 02/18/23 15:10 Ur Squamous Epith Cells RARE Squamous (<= Few) 02/18/23 15:10 Urine Bacteria None Seen /HPF (None Seen) 02/18/23 15:10 Urine Sperm PRESENT 02/18/23 15:10 Ur Microscopic Review INDICATED 02/14/23 10:34 Urine Culture Comments INDICATED 02/18/23 15:10 Urine Opiates Screen NEGATIVE (NEGATIVE) 02/14/23 10:34 Ur Oxycodone Screen NEGATIVE (NEGATIVE) 02/14/23 10:34 Urine Methadone Screen NEGATIVE (NEGATIVE) 02/14/23 10:34 Ur Propoxyphene Screen NEGATIVE (NEGATIVE) 02/14/23 10:34 Ur Barbiturates Screen NEGATIVE (NEGATIVE) 02/14/23 10:34 Ur Tricyclics Screen NEGATIVE (NEGATIVE) 02/14/23 10:34 Ur Phencyclidine Scrn NEGATIVE (NEGATIVE) 02/14/23 10:34 Ur Amphetamine Screen NEGATIVE (NEGATIVE) 02/14/23 10:34 U Methamphetamines Scrn NEGATIVE (NEGATIVE) 02/14/23 10:34 U Benzodiazepines Scrn NEGATIVE (NEGATIVE) 02/14/23 10:34 Urine Cocaine Screen NEGATIVE (NEGATIVE) 02/14/23 10:34 U Cannabinoids Screen POSITIVE (NEGATIVE) H 02/14/23 10:34 Ethyl Alcohol < 5.0 mg/dL 02/14/23 03:15
[2023-02-28] MEDS: cephALEXin 250 MG CAPSULE PO SCH ×4 (00:14→18:50)
[2023-02-28] MEDS ORDERED: LACTULOSE 10 GM /15 ML UDC PO ONE (07:35)
--- NOTE | 2023-02-28 08:31 | PROVIDER PROGRESS NOTE ---
Assessment/Plan - Problem List (1) Major depressive disorder, recurrent, severe with psychotic symptoms Assessment/Plan: At admission, the patient just stared at hospitalist provider and other staff after being asked a question, and occasionally softly mumbled an answer, to what was asked 2 questions ago. He did not participate in any discussions. He did initially keep asking when Mer will visit and she visited him on 02/17. I spoke to his caregiver, Mer in the room at his bedside on 02/17 and updated her. I also spoke to Mer by phone on 02/16, who stated that he has worsened since 2010, he goes to a psychiatrist, has had his psychiatric meds adjusted and we do have the current proper medication list. Mer said that when he stares at you. "it is because the people that are in his body do not like what they are hearing". Therefore, when he is staring, his symptoms are not under control. Mer said this is his catatonia. Mer said that the patient can no longer make decisions for himself, and she has to remind him and cue him multiple times to do something. She is working with the pt's daughter Christina, and the patient's counseling case manager, trying to get him permanent placement. At home he takes Risperdal 3 mg p.o. twice daily. That was resumed. But then discontinued due to sedation. February 18 & February 19, he was unhappy and describing discomfort in his rectum and we saw some small linear rectal fissures. We resumed his Risperdal 3 mg p.o. twice a day on 02/19 and his mentation and impulsivity did not improved. Hospitalist had initially ordered telepsych 02/19. On 02/[address] Lawrence, his psychiatrist, at [phone]. She said that she has been seeing him off and on for over a year, remotely, over Zoom. She last saw him on Zoom May 2022 right before she went on maternity leave, when he was functioning well. He had minimal psychosis. Mild depression. He was on sertraline. She came back from maternity leave and immediately noticed that he had a substantial change those 6 to 7 months later. He was hallucinating, falling, having episodes of defecation and urination all over the floor in his house. He felt that aliens, or Indians, or other individuals in his life were putting stuff up his rectum and he was desperate to pull it out but he just could not pull them out. At that time he was using excessive, excessive cannabis so they had him stop it for 2 months and he did not get any better. No clear reason of why he was falling. He then started sliding into being mute and unresponsive. 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 Seroquel had no effect, benzodiazepines for the mutism had no effect, sertraline had no effect. He then started getting extraparamidal signs on Risperdal 3 mg p.o. 3 times daily so she decreased it to 3 mg twice daily. In spite of all this, the muteness has become more and more predominant. Benzodiazepines usually help but Ativan did not help. So what our Hospitalist described to her is exactly what she was seeing. She was in the process of speaking to his case operator. They were working on a more intensive environment and placement for him, because he was not going to be able to succeed living at home with his acute care assistant/ex-girlfriend. The case operator is named Mikaela Irving and her number is [phone], extension [phone]. Dr. Lawrence does feel that the patient would benefit from an inpatient stay. But his caregiver says that did not work a year ago. He was only okay for a couple of days and then he started regressing again. However Dr. Lawrence feels that stabilization of his mood, and his psy chosis would be beneficial before he is placed in any permanent residential situation. On February 21, we gave him Zyprexa as he was increasingly spiraling with his agitation of going to the bathroom, getting out of bed with the IV pole in place. It seems to have helpe, he was more aware of his environment, was not agitated, and actually was speaking full sentences. Since 02/23, he has been remarkably better in comparison to the catatonia from before. He is getting out of bed on his own. On his own, he will grab the walker to go walk down the hallway. Speaking to me, speaking to the nurses. Asking when he will go home. He continues to be mobile, but needs supervision, a AUDIENCE COORDINATOR walks the hallways with him. He is very impulsive. Needs repetitive prompts to keep him focused. PT has seen him again. They still feel he needs 24/7 supervision. He has been on Cymbalta since February 15. That was his home medication continued. He has been on Zyprexa ODT since February 23. He is also on Ativan sublingual 0.5 mg twice a day. We did order Haldol 2 mg prn (mostly to be used in the middle of the night) if needed for agitation. Plan: Continue his Cymbalta, Zyprexa, Ativan. It seems to be the combination that is working for him. When he gets out of the hospital he should follow-up with his psychiatrist, Dr. Lawrence. At this point he is medically stable. Social work is working on a plan for discharge. We do not think he can go home to his caregiver/ex-girlfriend because she states that she cannot take care of him /. Prior to this admission, his case operator with his psychiatrist were working on permanent placement in an inpatient psychiatric nursing home. I do not know if they will go back to that plan, or if he will be placed permanently, but he still cannot be left alone. 2) Catatonia He was almost mute and exhibited catatonia This has resolved as described in #1, on the meds described in #1 3) Schizophrenia As per Hx. 4) Left arm swelling Improving The appearance is that of dependent edema, perhaps he laid on that arm when he slept. Ultrasound duplex Doppler was done on February 18 to make sure he did not have a DVT. That study was negative. He continues to have left arm edema and left hand edema. But there is no redness, no heat. He can flex and extend at the elbow and at the wrist. Fingers looked like sausages. Skin is pink. Good capillary refill. Temperature of the arm and the hand is normal. 5) Toe infection Improving No fever. He really did not have any systemic complaints of infection. He did not even tell me it hurts. Plain film foot x-ray of the third toe on the right foot did not have any significant abnormalities. No fractures or dislocations. No suspicious bony lesions. No suspicious soft tissue calcifications or masses. Ever since Dr. Nunez lanced it, and it drained yellow purulent material, the soft tissue swelling has gone down and the redness and edema have improved. Plan: Continue Keflex p.o. for a total of 7 days. That would be February 28. 6) CKD (acute kidney injury)/hypokalemia Conclusion/Plan: On admission, he was visibly dehydrated clinically. His BUN/creat have improved from admission, since iv fluids were started. His baseline creat is 1.1 (records were reviewed). This Angelo was likely from underlying volume depletion in addition to the rhabdo. IVF stopped 02/21. Since admission, 2.1>> 1.7>> 1.6>> 1.5>> 1.4>>1.3>> 1.4 for several days. This creatinine of 1.3-1.4 appears to be his new baseline. Plan: Avoid nephrotoxins Encourage fluid intake Follow BMP intermittently 7) DM type 2 (diabetes mellitus, type 2) Conclusion/Plan: He was on metformin at home. His A1c came back very good at 6.3. He is eating 100% of his meals. Metformin resumed February 22. Fasting glucose was 105 on February 24 it was as low as 87. Plan: Continue diabetic diet and Metformin Continue fingersticks only in the morning 8) Abrasions of multiple sites Conclusion/Plan: These were caused by his frequent falls. As per photos taken by nursing. These are all healing well. Plan: We will provide topical care where necessary 9) Fall at home Conclusion/Plan: Unclear why this gentleman kept on falling at home. His caregiver wonders if he just forgot to use his walker. They are not seizures. There was no syncope. There was no orthostasis when we checked for that earlier this admission. He may have been intermittently oversedated on his Buprenorphine patch since we strongly suspect he was getting intermittently, which has been stopped completely here. Here, he is watched carefully by nursing. He has had no falls, and he gets up OOB independently multiple times daily. He initially had orthostatic vital signs being checked when he got here. Those have been discontinued. We notice he has slight ataxia. And he is very impulsive. So he has poor insight and may be putting himself in situations where he falls. Social work is working closely with his caregiver, trying to formulate plans for this gentlemen. His daughter will be his DPOA. 10) Poor hygiene One of the examples Mer described to me was that she needs to wipe his gilliam after he eats because he is so messy. He is less able to feed himself over just this past year. Here, he continues to be quite a messy eater. Food on the table, food on the floor. But he is eating. His eyelashes had crusted debris. Unknown period of time that he was laying on the floor with his head under the bed, until Mer found him that way and needed to lift him. He completed 7 days of Garamycin. He also has been witnessed to try to pull his own feces out of his anus, because he thinks "people are inside of him". 11) Abnormal EKG Conclusion/Plan: This patient has an abnromal EKG showing early R/S transition which could signify cor pulmonale, si milar to 2 months ago. An Echo was done to check if he has cor pulmonale, and it showed: an essentially normal heart, with normal LV size and systolic function but grade 1 diastolic function present and normal RV size and function were seen. 12) Small rectal fissures Hydrocortisone mixture with lidocaine mixture ordered to apply every 3-4 hours as needed, that was started 02/19, but he is not really able to tell us if this helps or not. This patient was using his fingers to disimpact himself to get "those things" out of his rectum. Therefore, possibly the fissures were act ually abrasions from his fingernails. 13) Rhabdomyolysis, resolved. It was caused by trauma, his recurrent falls. The CPK on admission was [id number] by February 23. We stopped his IV fluids February 21 because he kept on pulling on the IV, and the IV pole would also get tangled. And it was becoming a fall risk. His creat did rise and he has a new baseline, mildly abnomal creatinine. Plan: continue to encourage liquid po intake. Qualifiers: Rhabdomyolysis type: traumatic 14) Buprenorphine use, stopped Conclusion/Plan: Discontinued According to history, this was ordered for chronic back pain. We now think this was over sedating him and adding to the falls. In addition, pharmacy learned that his last prescription was written by his PCP 1 year ago, it was ordered for 13 weeks, so he should have run out many months ago, however there are still several patches available in the box that Mer brought from home. We therefore suspect that he was not getting patches on a routine scheduled basis, probably just haphazardly. Plan: He has had no c/o back pain, and we did not reorder buprenorphine patches q week - Current Meds Current Meds: Current Medications Generic Name Dose Route Start Last Admin Trade Name Jyoti PRN Reason Stop Dose Admin Acetaminophen 650 mg 02/15/23 19:57 02/27/23 17:09 Acetaminophen 325 Mg Tablet PO 650 mg Q4HR PRN Administration Pain or Fever > 38C (100.4F) Aspirin 81 mg 02/18/23 09:00 02/27/23 08:37 Aspirin Ec 81 Mg Tablet PO 81 mg DAILY ANGELA Administration Cephalexin 500 mg 02/22/23 20:00 02/28/23 05:45 Cephalexin 250 Mg Capsule PO 500 mg Q6HR ANGELA Administration Docusate Sodium 250 - 500 mg 02/26/23 17:00 02/27/23 21:12 Docusate Sodium 250 Mg Capsule PO 500 mg BID ANGELA Administration Duloxetine HCl 30 mg 02/15/23 13:30 02/27/23 08:47 Duloxetine 30 Mg Capsule PO 30 mg DAILY ANGELA Administration Fluticasone Propionate 1 sprays 02/17/23 09:00 02/27/23 08:50 Fluticasone Nasal [place] CRISTIAN 1 spray DAILY ANGELA Administration Haloperidol 2 mg 02/22/23 13:06 02/26/23 14:41 Haloperidol 5 Mg/Ml Vial IM 2 mg DAILY PRN Administration Agitation Ibuprofen 600 mg 02/15/23 19:57 02/23/23 13:58 Ibuprofen 600 Mg Tablet PO 600 mg Q6HR PRN Administration MINOR PAIN Lidocaine HCl 1 ml 02/23/23 13:54 02/26/23 13:59 Lidocaine Jelly 2% 6 Ml Jel.Pf.Shanda TOP 1 ml TID PRN Administration anal itching pain Lorazepam 0.5 mg 02/21/23 21:00 02/27/23 21:13 Lorazepam 0.5 Mg Tablet SL 0.5 mg BID ANGELA Administration Magnesium Oxide 400 mg 02/16/23 08:00 02/27/23 08:37 Magnesium Oxide 400 Mg Tablet PO 400 mg DAILYWM ANGELA Administration Metformin HCl 1,000 mg 02/22/23 17:00 02/27/23 17:10 Metformin 500 Mg Tablet PO 1,000 mg BIDWM ANGELA Administration Multivitamins/Minerals 1 tab 02/18/23 09:00 02/27/23 08:37 Multivitamin W/Minerals Tablet PO 1 tab DAILYWM ANGELA Administration Olanzapine 5 mg 02/23/23 21:00 02/27/23 21:13 Olanzapine Odt 5 Mg Tablet TL 5 mg BID ANGELA Administration Polyethylene Glycol 17 gm 02/17/23 18:00 02/27/23 08:39 Polyethylene Glycol 3350 17 Gm Packet PO 17 gm DAILY ANGELA Administration Senna 8.6 - 17.2 mg 02/26/23 17:00 02/27/23 21:13 Senna 8.6 Mg Tablet PO 17.2 mg BID ANGELA Administration - Lab Result Fish Bone Diagrams: 03/05/23 05:20 03/05/23 05:20 - Additional Planning My Orders: My Active Orders 02/27/23 12:07 Hydrocortisone 1% Cream [Hydrocortisone] 1 applic TOP TID PRN 02/28/23 08:00 Senna [Senokot] 17.2 - 25.8 mg PO Q6H Subjective - Subjective Nursing Reports: Other (Is impulsive, stands and walks with his walker in room and in hallways, multiple times a day. Is minimally communicative. He asked mecwhen he will go home. I answered him, when there is more help for him all day and night. He sat down and shook his head and said "I just don't understand that".) Objective Vital Signs: Vital Signs - 24 hr 02/27/23 02/28/23 15:56 00:23 Temperature 36.3 C L 36.4 C L Heart Rate [ 81 67 Brachial] Respiratory 20 16 Rate Blood Pressure 132/87 H 131/68 H [Right Brachial artery] O2 Saturation 98 96 Oxygen O2 Source Room air I&O (Last 24 Hrs): Intake and Output Totals x24h 02/26/23 02/27/23 02/28/23 23:59 23:59 23:59 Intake Total 2160 1830 Output Total 400 Balance 2160 1430 General: Alert, No acute distress, Other (Male pettern baldness) HEENT: Atraumatic Neck: Supple, No JVD Neuro: Alert, Disoriented Cardiovascular: Regular rate Respiratory: No respiratory distress Abdomen: Soft Extremities: No clubbing, No edema, Other (Toes look dry, scab healing) - Results Results: Laboratory Results WBC 6.9 x10^3/uL (4.8-10.8) 02/26/23 05:38 RBC 3.80 10^6/uL (4.70-6.10) L 02/26/23 05:38 Hgb 11.2 g/dL (14.0-18.0) L 02/26/23 05:38 Hct 34.3 % (42.0-52.0) L 02/26/23 05:38 MCV 90.3 fL (80.0-94.0) 02/26/23 05:38 MCH 29.5 pg (27.0-31.0) 02/26/23 05:38 MCHC 32.7 g/dL (32.0-36.0) 02/26/23 05:38 RDW 12.9 % (12.0-15.0) 02/26/23 05:38 Plt Count 310 10^3/uL (130-450) 02/26/23 05:38 MPV 8.9 fL (7.4-11.4) 02/26/23 05:38 Neut # (Auto) 4.3 10^3/uL (1.5-6.6) 02/26/23 05:38 Lymph # (Auto) 1.8 10^3/uL (1.5-3.5) 02/26/23 05:38 [place] # (Auto) 0.5 10^3/uL (0.0-1.0) 02/26/23 05:38 Eos # (Auto) 0.3 10^3/uL (0.0-0.7) 02/26/23 05:38 Baso # (Auto) 0.0 10^3/uL (0.0-0.1) 02/26/23 05:38 Absolute Nucleated RBC 0.00 x10^3/uL 02/26/23 05:38 Total Counted 100 02/14/23 03:15 Band Neuts % (Manual) 9 % (0-10) 02/14/23 03:15 Abnorm Lymph % (Manual) 0 % 02/14/23 03:15 Nucleated RBC % 0.0 /100WBC 02/26/23 05:38 Neutrophils # (Manual) 18.2 10^3/uL (1.5-6.6) H 02/14/23 03:15 Lymphocytes # (Manual) 1.0 10^3/uL (1.5-3.5) L 02/14/23 03:15 Monocytes # (Manual) 1.2 10^3/uL (0.0-1.0) H 02/14/23 03:15 Eosinophils # (Manual) 0.0 10^3/uL (0-0.7) 02/14/23 03:15 Basophils # (Manual) 0.0 10^3/uL (0-0.1) 02/14/23 03:15 Differential Comment MANUAL DIFFERENTIAL 02/14/23 03:15 Sodium 140 mmol/L (135-145) 02/26/23 05:38 Potassium 3.8 mmol/L (3.5-5.0) 02/26/23 05:38 Chloride 104 mmol/L (101-111) 02/26/23 05:38 Carbon Dioxide 27 mmol/L (21-32) 02/26/23 05:38 Anion Gap 9.0 (6-13) 02/26/23 05:38 BUN 17 mg/dL (6-20) 02/26/23 05:38 Creatinine 1.4 mg/dL (0.6-1.2) H 02/26/23 05:38 Estimated GFR (MDRD) 52 (>89) L 02/26/23 05:38 Glucose 106 mg/dL (70-100) H 02/26/23 05:38 Estimat Average Glucose 134 mg/dL (70-100) H 02/15/23 05:20 Hemoglobin A1c % 6.3 % (4.27-6.07) H 02/15/23 05:20 Calcium 9.2 mg/dL (8.5-10.3) 02/26/23 05:38 Magnesium 1.5 mg/dL (1.7-2.8) L 02/17/23 05:35 Total Bilirubin 0.8 mg/dL (0.2-1.0) 02/14/23 03:15 AST 155 IU/L (10-42) H 02/14/23 03:15 ALT 58 IU/L (10-60) 02/14/23 03:15 Alkaline Phosphatase 107 IU/L (42-121) 02/14/23 03:15 Total Creatine Kinase 440 IU/L (22-269) H 02/23/23 14:10 CK-MB (CK-2) 265.9 ng/mL (0.6-6.3) H 02/14/23 03:15 Total Protein 8.3 g/dL (6.7-8.2) H 02/14/23 03:15 Albumin 4.2 g/dL (3.2-5.5) 02/14/23 03:15 Globulin 4.1 g/dL (2.1-4.2) 02/14/23 03:15 Albumin/Globulin Ratio 1.0 (1.0-2.2) 02/14/23 03:15 Lipase 34 U/L (22-51) 02/14/23 03:15 TSH 1.21 uIU/mL (0.34-5.60) 02/14/23 03:15 Urine Color YELLOW 02/18/23 15:10 Urine Clarity CLEAR (CLEAR) 02/18/23 15:10 Urine pH 5.5 PH (5.0-7.5) 02/18/23 15:10 Ur Specific [place] 1.020 (1.002-1.030) 02/18/23 15:10 Urine Protein NEGATIVE mg/dL (NEGATIVE) 02/18/23 15:10 Urine Glucose (UA) NEGATIVE mg/dL (NEGATIVE) 02/18/23 15:10 Urine Ketones NEGATIVE mg/dL (NEGATIVE) 02/18/23 15:10 Urine Occult Blood MODERATE (NEGATIVE) H 02/18/23 15:10 Urine Nitrite NEGATIVE (NEGATIVE) 02/18/23 15:10 Urine Bilirubin NEGATIVE (NEGATIVE) 02/18/23 15:10 Urine Urobilinogen 0.2 (NORMAL) E.U./dL (NORMAL) 02/18/23 15:10 Ur Leukocyte Esterase TRACE (NEGATIVE) H 02/18/23 15:10 Urine RBC 11-25 /HPF (0-5) H 02/18/23 15:10 Urine WBC 6-10 /HPF (0-3) H 02/18/23 15:10 Ur Squamous Epith Cells RARE Squamous (<= Few) 02/18/23 15:10 Urine Bacteria None Seen /HPF (None Seen) 02/18/23 15:10 Urine Sperm PRESENT 02/18/23 15:10 Ur Microscopic Review INDICATED 02/14/23 10:34 Urine Culture Comments INDICATED 02/18/23 15:10 Urine Opiates Screen NEGATIVE (NEGATIVE) 02/14/23 10:34 Ur Oxycodone Screen NEGATIVE (NEGATIVE) 02/14/23 10:34 Urine Methadone Screen NEGATIVE (NEGATIVE) 02/14/23 10:34 Ur Propoxyphene Screen NEGATIVE (NEGATIVE) 02/14/23 10:34 Ur Barbiturates Screen NEGATIVE (NEGATIVE) 02/14/23 10:34 Ur Tricyclics Screen NEGATIVE (NEGATIVE) 02/14/23 10:34 Ur Phencyclidine Scrn NEGATIVE (NEGATIVE) 02/14/23 10:34 Ur Amphetamine Screen NEGATIVE (NEGATIVE) 02/14/23 10:34 U Methamphetamines Scrn NEGATIVE (NEGATIVE) 02/14/23 10:34 U Benzodiazepines Scrn NEGATIVE (NEGATIVE) 02/14/23 10:34 Urine Cocaine Screen NEGATIVE (NEGATIVE) 02/14/23 10:34 U Cannabinoids Screen POSITIVE (NEGATIVE) H 02/14/23 10:34 Ethyl Alcohol < 5.0 mg/dL 02/14/23 03:15
[2023-02-28] MEDS: OLANZapine ODT 5 MG TABLET TL SCH ×2 (08:39→20:49)
[2023-02-28] MEDS: LORazepam 0.5 MG TABLET SL SCH ×2 (08:41→20:49)
[2023-02-28] MEDS: metFORMIN 500 MG TABLET PO SCH ×2 (08:42→17:33)
[2023-02-28] MEDS: DULoxetine 30 MG CAPSULE PO SCH (08:42)
[2023-02-28] MEDS: ASPIRIN EC 81 MG TABLET PO SCH (08:43)
[2023-02-28] MEDS: MAGNESIUM OXIDE 400 MG TABLET PO SCH (08:43)
[2023-02-28] MEDS: DOCUSATE SODIUM 250 MG CAPSULE PO SCH ×2 (08:43→20:49)
[2023-02-28] MEDS: SENNA 8.6 MG TABLET PO SCH ×5 (08:45→21:00)
[2023-02-28] MEDS: MULTIVITAMIN W/MINERALS TABLET PO SCH (08:46)
[2023-02-28] MEDS: FLUTICASONE NASAL SPRAY NAS SCH (08:52)
[2023-02-28] MEDS: polyethylene glycoL 3350 17 GM PACKET PO SCH (08:52)
[2023-02-28] MEDS: ACETAMINOPHEN 325 MG TABLET PO PRN ×2 (16:41→20:51)
[2023-03-01] MEDS: SENNA 8.6 MG TABLET PO SCH ×3 (02:00→20:37)
[2023-03-01] MEDS: OLANZapine ODT 5 MG TABLET TL SCH ×2 (08:48→20:37)
[2023-03-01] MEDS: MULTIVITAMIN W/MINERALS TABLET PO SCH (08:48)
[2023-03-01] MEDS: metFORMIN 500 MG TABLET PO SCH ×2 (08:48→17:00)
[2023-03-01] MEDS: LORazepam 0.5 MG TABLET SL SCH ×2 (08:48→20:37)
[2023-03-01] MEDS: DULoxetine 30 MG CAPSULE PO SCH (08:48)
[2023-03-01] MEDS: ASPIRIN EC 81 MG TABLET PO SCH (08:48)
[2023-03-01] MEDS: DOCUSATE SODIUM 250 MG CAPSULE PO SCH ×2 (08:49→20:37)
[2023-03-01] MEDS: MAGNESIUM OXIDE 400 MG TABLET PO SCH (08:49)
[2023-03-01] MEDS: polyethylene glycoL 3350 17 GM PACKET PO SCH (08:49)
[2023-03-01] MEDS: FLUTICASONE NASAL SPRAY NAS SCH (08:49)
[2023-03-01] MEDS: ACETAMINOPHEN 325 MG TABLET PO PRN (15:48)
--- NOTE | 2023-03-01 16:43 | PROVIDER PROGRESS NOTE ---
Assessment/Plan - Problem List (1) Major depressive disorder, recurrent, severe with psychotic symptoms Assessment/Plan: At admission, the patient just stared at hospitalist provider and other staff after being asked a question, and occasionally softly mumbled an answer, to what was asked 2 questions ago. He did not participate in any discussions. He did initially keep asking when Mer will visit and she visited him on 02/17. I spoke to his caregiver, Mer in the room at his bedside on 02/17 and updated her. I also spoke to Mer by phone on 02/16, who stated that he has worsened since 2010, he goes to a psychiatrist, has had his psychiatric meds adjusted and we do have the current proper medication list. Mer said that when he stares at you. "it is because the people that are in his body do not like what they are hearing". Therefore, when he is staring, his symptoms are not under control. Mer said this is his catatonia. Mer said that the patient can no longer make decisions for himself, and she has to remind him and cue him multiple times to do something. She is working with the pt's daughter Christina, and the patient's shoe caser, trying to get him permanent placement. At home he takes Risperdal 3 mg p.o. twice daily. That was resumed. But then discontinued due to sedation. February 18 & February 19, he was unhappy and describing discomfort in his rectum and we saw some small linear rectal fissures. We resumed his Risperdal 3 mg p.o. twice a day on 02/19 and his mentation and impulsivity did not improved. Hospitalist had initially ordered telepsych 02/19. On 02/[address] Lawrence, his psychiatrist, at [phone]. She said that she has been seeing him off and on for over a year, remotely, over Zoom. She last saw him on Zoom May 2022 right before she went on maternity leave, when he was functioning well. He had minimal psychosis. Mild depression. He was on sertraline. She came back from maternity leave and immediately noticed that he had a substantial change those 6 to 7 months later. He was hallucinating, falling, having episodes of defecation and urination all over the floor in his house. He felt that aliens, or Indians, or other individuals in his life were putting stuff up his rectum and he was desperate to pull it out but he just could not pull them out. At that time he was using excessive, excessive cannabis so they had him stop it for 2 months and he did not get any better. No clear reason of why he was falling. He then started sliding into being mute and unresponsive. 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 Seroquel had no effect, benzodiazepines for the mutism had no effect, sertraline had no effect. He then started getting extraparamidal signs on Risperdal 3 mg p.o. 3 times daily so she decreased it to 3 mg twice daily. In spite of all this, the muteness has become more and more predominant. Benzodiazepines usually help but Ativan did not help. So what our Hospitalist described to her is exactly what she was seeing. She was in the process of speaking to his case assembler. They were working on a more intensive environment and placement for him, because he was not going to be able to succeed living at home with his career coach/ex-girlfriend. The case assembler is named Mikaela Irving and her number is [phone], extension [phone]. Dr. Lawrence does feel that the patient would benefit from an inpatient stay. But his caregiver says that did not work a year ago. He was only okay for a couple of days and then he started regressing again. However Dr. Lawrence feels that stabilization of his mood, and his psy chosis would be beneficial before he is placed in any permanent residential situation. On February 21, we gave him Zyprexa as he was increasingly spiraling with his agitation of going to the bathroom, getting out of bed with the IV pole in place. It seems to have helpe, he was more aware of his environment, was not agitated, and actually was speaking full sentences. Since 02/23, he has been remarkably better in comparison to the catatonia from before. He is getting out of bed on his own. On his own, he will grab the walker to go walk down the hallway. Speaking to me, speaking to the nurses. Asking when he will go home. He continues to be mobile, but needs supervision, a TRADER FIXED INCOME walks the hallways with him. He is very impulsive. Needs repetitive prompts to keep him focused. PT has seen him again. They still feel he needs 24/7 supervision. He has been on Cymbalta since February 15. That was his home medication continued. He has been on Zyprexa ODT since February 23. He is also on Ativan sublingual 0.5 mg twice a day. We did order Haldol 2 mg prn (mostly to be used in the middle of the night) if needed for agitation. Plan: Continue his Cymbalta, Zyprexa, Ativan. It seems to be the combination that is working for him. When he gets out of the hospital he should follow-up with his psychiatrist, Dr. Lawrence. At this point he is medically stable. Social work is working on a plan for discharge. We do not think he can go home to his caregiver/ex-girlfriend because she states that she cannot take care of him /. Prior to this admission, his case assembler with his psychiatrist were working on permanent placement in an inpatient psychiatric [place] [facility] facility. I do not know if they will go back to that plan, or if he will be placed permanently, but he still cannot be left alone. 2) Catatonia He was almost mute and exhibited catatonia This has resolved as described in #1, on the meds described in #1 3) Schizophrenia As per Hx. 4) Left arm swelling Improving The appearance is that of dependent edema, perhaps he laid on that arm when he slept. Ultrasound duplex Doppler was done on February 18 to make sure he did not have a DVT. That study was negative. He continues to have left arm edema and left hand edema. But there is no redness, no heat. He can flex and extend at the elbow and at the wrist. Fingers looked like sausages. Skin is pink. Good capillary refill. Temperature of the arm and the hand is normal. 5) Toe infection Improving No fever. He really did not have any systemic complaints of infection. He did not even tell me it hurts. Plain film foot x-ray of the third toe on the right foot did not have any significant abnormalities. No fractures or dislocations. No suspicious bony lesions. No suspicious soft tissue calcifications or masses. Ever since Dr. Nunez lanced it, and it drained yellow purulent material, the soft tissue swelling has gone down and the redness and edema have improved. Plan: Continue Keflex p.o. for a total of 7 days. That would be February 28. 6) CKD (acute kidney injury)/hypokalemia Conclusion/Plan: On admission, he was visibly dehydrated clinically. His BUN/creat have improved from admission, since iv fluids were started. His baseline creat is 1.1 (records were reviewed). This Angelo was likely from underlying volume depletion in addition to the rhabdo. IVF stopped 02/21. Since admission, 2.1>> 1.7>> 1.6>> 1.5>> 1.4>>1.3>> 1.4 for several days. This creatinine of 1.3-1.4 appears to be his new baseline. Plan: Avoid nephrotoxins Encourage fluid intake Follow BMP intermittently 7) DM type 2 (diabetes mellitus, type 2) Conclusion/Plan: He was on metformin at home. His A1c came back very good at 6.3. He is eating 100% of his meals. Metformin resumed February 22. Fasting glucose was 105 on February 24 it was as low as 87. Plan: Continue diabetic diet and Metformin Continue fingersticks only in the morning 8) Abrasions of multiple sites Conclusion/Plan: These were caused by his frequent falls. As per photos taken by nursing. These are all healing well. Plan: We will provide topical care where necessary 9) Fall at home Conclusion/Plan: Unclear why this gentleman kept on falling at home. His caregiver wonders if he just forgot to use his walker. They are not seizures. There was no syncope. There was no orthostasis when we checked for that earlier this admission. He may have been intermittently oversedated on his Buprenorphine patch since we strongly suspect he was getting intermittently, which has been stopped completely here. Here, he is watched carefully by nursing. He has had no falls, and he gets up OOB independently multiple times daily. He initially had orthostatic vital signs being checked when he got here. Those have been discontinued. We notice he has slight ataxia. And he is very impulsive. So he has poor insight and may be putting himself in situations where he falls. Social work is working closely with his caregiver, trying to formulate plans for this gentlemen. His daughter will be his DPOA. 10) Poor hygiene One of the examples Mer described to me was that she needs to wipe his gilliam after he eats because he is so messy. He is less able to feed himself over just this past year. Here, he continues to be quite a messy eater. Food on the table, food on the floor. But he is eating. His eyelashes had crusted debris. Unknown period of time that he was laying on the floor with his head under the bed, until Mer found him that way and needed to lift him. He completed 7 days of Garamycin. He also has been witnessed to try to pull his own feces out of his anus, because he thinks "people are inside of him". 11) Abnormal EKG Conclusion/Plan: This patient has an abnromal EKG showing early R/S transition which could signify cor pulmonale, si milar to 2 months ago. An Echo was done to check if he has cor pulmonale, and it showed: an essentially normal heart, with normal LV size and systolic function but grade 1 diastolic function present and normal RV size and function were seen. 12) Small rectal fissures Hydrocortisone mixture with lidocaine mixture ordered to apply every 3-4 hours as needed, that was started 02/19, but he is not really able to tell us if this helps or not. This patient was using his fingers to disimpact himself to get "those things" out of his rectum. Therefore, possibly the fissures were act ually abrasions from his fingernails. 13) Rhabdomyolysis, resolved. It was caused by trauma, his recurrent falls. The CPK on admission was [id number] by February 23. We stopped his IV fluids February 21 because he kept on pulling on the IV, and the IV pole would also get tangled. And it was becoming a fall risk. His creat did rise and he has a new baseline, mildly abnomal creatinine. Plan: continue to encourage liquid po intake. Qualifiers: Rhabdomyolysis type: traumatic 14) Buprenorphine use, stopped Conclusion/Plan: Discontinued According to history, this was ordered for chronic back pain. We now think this was over sedating him and adding to the falls. In addition, pharmacy learned that his last prescription was written by his PCP 1 year ago, it was ordered for 13 weeks, so he should have run out many months ago, however there are still several patches available in the box that Mer brought from home. We therefore suspect that he was not getting patches on a routine scheduled basis, probably just haphazardly. Plan: He has had no c/o back pain, and we did not reorder buprenorphine patches q week - Current Meds Current Meds: Current Medications Generic Name Dose Route Start Last Admin Trade Name Jyoti PRN Reason Stop Dose Admin Acetaminophen 650 mg 02/15/23 19:57 03/01/23 15:48 Acetaminophen 325 Mg Tablet PO 650 mg Q4HR PRN Administration Pain or Fever > 38C (100.4F) Aspirin 81 mg 02/18/23 09:00 03/01/23 08:48 Aspirin Ec 81 Mg Tablet PO 81 mg DAILY ANGELA Administration Docusate Sodium 250 - 500 mg 02/26/23 17:00 03/01/23 08:49 Docusate Sodium 250 Mg Capsule PO Not Given BID ANGELA Duloxetine HCl 30 mg 02/15/23 13:30 03/01/23 08:48 Duloxetine 30 Mg Capsule PO 30 mg DAILY ANGELA Administration Fluticasone Propionate 1 sprays 02/17/23 09:00 03/01/23 08:49 Fluticasone Nasal [place] CRISTIAN 1 spray DAILY ANGELA Administration Haloperidol 2 mg 02/22/23 13:06 02/26/23 14:41 Haloperidol 5 Mg/Ml Vial IM 2 mg DAILY PRN Administration Agitation Ibuprofen 600 mg 02/15/23 19:57 02/23/23 13:58 Ibuprofen 600 Mg Tablet PO 600 mg Q6HR PRN Administration MINOR PAIN Lidocaine HCl 1 ml 02/23/23 13:54 02/26/23 13:59 Lidocaine Jelly 2% 6 Ml Jel.Pf.Shanda TOP 1 ml TID PRN Administration anal itching pain Lorazepam 0.5 mg 02/21/23 21:00 03/01/23 08:48 Lorazepam 0.5 Mg Tablet SL 0.5 mg BID ANGELA Administration Magnesium Oxide 400 mg 02/16/23 08:00 03/01/23 08:49 Magnesium Oxide 400 Mg Tablet PO 400 mg DAILYWM ANGELA Administration Metformin HCl 1,000 mg 02/22/23 17:00 03/01/23 08:48 Metformin 500 Mg Tablet PO 1,000 mg BIDWM ANGELA Administration Multivitamins/Minerals 1 tab 02/18/23 09:00 03/01/23 08:48 Multivitamin W/Minerals Tablet PO 1 tab DAILYWM ANGELA Administration Olanzapine 5 mg 02/23/23 21:00 03/01/23 08:48 Olanzapine Odt 5 Mg Tablet TL 5 mg BID ANGELA Administration Polyethylene Glycol 17 gm 02/17/23 18:00 03/01/23 08:49 Polyethylene Glycol 3350 17 Gm Packet PO Not Given DAILY ANGELA Senna 8.6 - 17.2 mg 02/26/23 17:00 03/01/23 08:49 Senna 8.6 Mg Tablet PO Not Given BID ANGELA - Lab Result Fish Bone Diagrams: 03/05/23 05:20 03/05/23 05:20 Subjective - Subjective Nursing Reports: Other (Is impulsive, stands and walks with his walker in oom and in hallways, multiple times a day. Is minimally communicative.) Objective Vital Signs: Vital Signs - 24 hr 03/01/23 03/01/23 03/01/23 00:53 08:00 16:00 Temperature 36.7 C 36.5 C 36.4 C L Heart Rate [ 62 59 L 88 Brachial] Respiratory 18 18 20 Rate Blood Pressure 133/68 H [Left Brachial artery] Blood Pressure 147/74 H 121/66 [Right Brachial artery] O2 Saturation 97 98 98 Oxygen O2 Source Room air I&O (Last 24 Hrs): Intake and Output Totals x24h 02/27/23 02/28/23 03/01/23 23:59 23:59 23:59 Intake Total 1830 2194 1140 Output Total 400 Balance 1430 2194 1140 General: Alert, No acute distress, Other (Male pattern baldness) HEENT: EOMI, Mucous membr. moist/pink Neck: Supple, No JVD Neuro: Alert, Non Focal, Other (Minomally communicative) Cardiovascular: Regular rate Respiratory: No respiratory distress Abdomen: Soft Extremities: No clubbing, No edema, Other (Toe is healing, L hand only is minimally swollen) - Results Results: Laboratory Results WBC 6.9 x10^3/uL (4.8-10.8) 02/26/23 05:38 RBC 3.80 10^6/uL (4.70-6.10) L 02/26/23 05:38 Hgb 11.2 g/dL (14.0-18.0) L 02/26/23 05:38 Hct 34.3 % (42.0-52.0) L 02/26/23 05:38 MCV 90.3 fL (80.0-94.0) 02/26/23 05:38 MCH 29.5 pg (27.0-31.0) 02/26/23 05:38 MCHC 32.7 g/dL (32.0-36.0) 02/26/23 05:38 RDW 12.9 % (12.0-15.0) 02/26/23 05:38 Plt Count 310 10^3/uL (130-450) 02/26/23 05:38 MPV 8.9 fL (7.4-11.4) 02/26/23 05:38 Neut # (Auto) 4.3 10^3/uL (1.5-6.6) 02/26/23 05:38 Lymph # (Auto) 1.8 10^3/uL (1.5-3.5) 02/26/23 05:38 Merrick # (Auto) 0.5 10^3/uL (0.0-1.0) 02/26/23 05:38 Eos # (Auto) 0.3 10^3/uL (0.0-0.7) 02/26/23 05:38 Baso # (Auto) 0.0 10^3/uL (0.0-0.1) 02/26/23 05:38 Absolute Nucleated RBC 0.00 x10^3/uL 02/26/23 05:38 Total Counted 100 02/14/23 03:15 Band Neuts % (Manual) 9 % (0-10) 02/14/23 03:15 Abnorm Lymph % (Manual) 0 % 02/14/23 03:15 Nucleated RBC % 0.0 /100WBC 02/26/23 05:38 Neutrophils # (Manual) 18.2 10^3/uL (1.5-6.6) H 02/14/23 03:15 Lymphocytes # (Manual) 1.0 10^3/uL (1.5-3.5) L 02/14/23 03:15 Monocytes # (Manual) 1.2 10^3/uL (0.0-1.0) H 02/14/23 03:15 Eosinophils # (Manual) 0.0 10^3/uL (0-0.7) 02/14/23 03:15 Basophils # (Manual) 0.0 10^3/uL (0-0.1) 02/14/23 03:15 Differential Comment MANUAL DIFFERENTIAL 02/14/23 03:15 Sodium 140 mmol/L (135-145) 02/26/23 05:38 Potassium 3.8 mmol/L (3.5-5.0) 02/26/23 05:38 Chloride 104 mmol/L (101-111) 02/26/23 05:38 Carbon Dioxide 27 mmol/L (21-32) 02/26/23 05:38 Anion Gap 9.0 (6-13) 02/26/23 05:38 BUN 17 mg/dL (6-20) 02/26/23 05:38 Creatinine 1.4 mg/dL (0.6-1.2) H 02/26/23 05:38 Estimated GFR (MDRD) 52 (>89) L 02/26/23 05:38 Glucose 106 mg/dL (70-100) H 02/26/23 05:38 Estimat Average Glucose 134 mg/dL (70-100) H 02/15/23 05:20 Hemoglobin A1c % 6.3 % (4.27-6.07) H 02/15/23 05:20 Calcium 9.2 mg/dL (8.5-10.3) 02/26/23 05:38 Magnesium 1.5 mg/dL (1.7-2.8) L 02/17/23 05:35 Total Bilirubin 0.8 mg/dL (0.2-1.0) 02/14/23 03:15 AST 155 IU/L (10-42) H 02/14/23 03:15 ALT 58 IU/L (10-60) 02/14/23 03:15 Alkaline Phosphatase 107 IU/L (42-121) 02/14/23 03:15 Total Creatine Kinase 440 IU/L (22-269) H 02/23/23 14:10 CK-MB (CK-2) 265.9 ng/mL (0.6-6.3) H 02/14/23 03:15 Total Protein 8.3 g/dL (6.7-8.2) H 02/14/23 03:15 Albumin 4.2 g/dL (3.2-5.5) 02/14/23 03:15 Globulin 4.1 g/dL (2.1-4.2) 02/14/23 03:15 Albumin/Globulin Ratio 1.0 (1.0-2.2) 02/14/23 03:15 Lipase 34 U/L (22-51) 02/14/23 03:15 TSH 1.21 uIU/mL (0.34-5.60) 02/14/23 03:15 Urine Color YELLOW 02/18/23 15:10 Urine Clarity CLEAR (CLEAR) 02/18/23 15:10 Urine pH 5.5 PH (5.0-7.5) 02/18/23 15:10 Ur Specific Cammal 1.020 (1.002-1.030) 02/18/23 15:10 Urine Protein NEGATIVE mg/dL (NEGATIVE) 02/18/23 15:10 Urine Glucose (UA) NEGATIVE mg/dL (NEGATIVE) 02/18/23 15:10 Urine Ketones NEGATIVE mg/dL (NEGATIVE) 02/18/23 15:10 Urine Occult Blood MODERATE (NEGATIVE) H 02/18/23 15:10 Urine Nitrite NEGATIVE (NEGATIVE) 02/18/23 15:10 Urine Bilirubin NEGATIVE (NEGATIVE) 02/18/23 15:10 Urine Urobilinogen 0.2 (NORMAL) E.U./dL (NORMAL) 02/18/23 15:10 Ur Leukocyte Esterase TRACE (NEGATIVE) H 02/18/23 15:10 Urine RBC 11-25 /HPF (0-5) H 02/18/23 15:10 Urine WBC 6-10 /HPF (0-3) H 02/18/23 15:10 Ur Squamous Epith Cells RARE Squamous (<= Few) 02/18/23 15:10 Urine Bacteria None Seen /HPF (None Seen) 02/18/23 15:10 Urine Sperm PRESENT 02/18/23 15:10 Ur Microscopic Review INDICATED 02/14/23 10:34 Urine Culture Comments INDICATED 02/18/23 15:10 Urine Opiates Screen NEGATIVE (NEGATIVE) 02/14/23 10:34 Ur Oxycodone Screen NEGATIVE (NEGATIVE) 02/14/23 10:34 Urine Methadone Screen NEGATIVE (NEGATIVE) 02/14/23 10:34 Ur Propoxyphene Screen NEGATIVE (NEGATIVE) 02/14/23 10:34 Ur Barbiturates Screen NEGATIVE (NEGATIVE) 02/14/23 10:34 Ur Tricyclics Screen NEGATIVE (NEGATIVE) 02/14/23 10:34 Ur Phencyclidine Scrn NEGATIVE (NEGATIVE) 02/14/23 10:34 Ur Amphetamine Screen NEGATIVE (NEGATIVE) 02/14/23 10:34 U Methamphetamines Scrn NEGATIVE (NEGATIVE) 02/14/23 10:34 U Benzodiazepines Scrn NEGATIVE (NEGATIVE) 02/14/23 10:34 Urine Cocaine Screen NEGATIVE (NEGATIVE) 02/14/23 10:34 U Cannabinoids Screen POSITIVE (NEGATIVE) H 02/14/23 10:34 Ethyl Alcohol < 5.0 mg/dL 02/14/23 03:15
[2023-03-01] MEDS: IBUPROFEN 600 MG TABLET PO PRN (20:00)
[2023-03-02] MEDS: DULoxetine 30 MG CAPSULE PO SCH (08:22)
[2023-03-02] MEDS: MULTIVITAMIN W/MINERALS TABLET PO SCH (08:22)
[2023-03-02] MEDS: LORazepam 0.5 MG TABLET SL SCH ×2 (08:22→20:51)
[2023-03-02] MEDS: ASPIRIN EC 81 MG TABLET PO SCH (08:22)
[2023-03-02] MEDS: DOCUSATE SODIUM 250 MG CAPSULE PO SCH ×2 (08:23→20:50)
[2023-03-02] MEDS: SENNA 8.6 MG TABLET PO SCH ×2 (08:23→20:50)
[2023-03-02] MEDS: OLANZapine ODT 5 MG TABLET TL SCH ×2 (08:23→20:51)
[2023-03-02] MEDS: metFORMIN 500 MG TABLET PO SCH ×2 (08:23→16:48)
[2023-03-02] MEDS: MAGNESIUM OXIDE 400 MG TABLET PO SCH (08:23)
[2023-03-02] MEDS: FLUTICASONE NASAL SPRAY NAS SCH (08:26)
[2023-03-02] MEDS: polyethylene glycoL 3350 17 GM PACKET PO SCH (09:33)
--- NOTE | 2023-03-02 17:14 | PROVIDER PROGRESS NOTE ---
Assessment/Plan - Problem List (1) Major depressive disorder, recurrent, severe with psychotic symptoms Assessment/Plan: At admission, the patient just stared at hospitalist provider and other staff after being asked a question, and occasionally softly mumbled an answer, to what was asked 2 questions ago. He did not participate in any discussions. He did initially keep asking when Mer will visit and she visited him on 02/17. I spoke to his caregiver, Mer in the room at his bedside on 02/17 and updated her. I also spoke to Mer by phone on 02/16, who stated that he has worsened since 2010, he goes to a psychiatrist, has had his psychiatric meds adjusted and we do have the current proper medication list. Mer said that when he stares at you. "it is because the people that are in his body do not like what they are hearing". Therefore, when he is staring, his symptoms are not under control. Mer said this is his catatonia. Mer said that the patient can no longer make decisions for himself, and she has to remind him and cue him multiple times to do something. She is working with the pt's daughter Christina, and the patient's hospice case manager, trying to get him permanent placement. At home he takes Risperdal 3 mg p.o. twice daily. That was resumed. But then discontinued due to sedation. February 18 & February 19, he was unhappy and describing discomfort in his rectum and we saw some small linear rectal fissures. We resumed his Risperdal 3 mg p.o. twice a day on 02/19 and his mentation and impulsivity did not improved. Hospitalist had initially ordered telepsych 02/19. On 02/[address] Lawrence, his psychiatrist, at [phone]. She said that she has been seeing him off and on for over a year, remotely, over Zoom. She last saw him on Zoom May 2022 right before she went on maternity leave, when he was functioning well. He had minimal psychosis. Mild depression. He was on sertraline. She came back from maternity leave and immediately noticed that he had a substantial change those 6 to 7 months later. He was hallucinating, falling, having episodes of defecation and urination all over the floor in his house. He felt that aliens, or Indians, or other individuals in his life were putting stuff up his rectum and he was desperate to pull it out but he just could not pull them out. At that time he was using excessive, excessive cannabis so they had him stop it for 2 months and he did not get any better. No clear reason of why he was falling. He then started sliding into being mute and unresponsive. 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 Seroquel had no effect, benzodiazepines for the mutism had no effect, sertraline had no effect. He then started getting extraparamidal signs on Risperdal 3 mg p.o. 3 times daily so she decreased it to 3 mg twice daily. In spite of all this, the muteness has become more and more predominant. Benzodiazepines usually help but Ativan did not help. So what our Hospitalist described to her is exactly what she was seeing. She was in the process of speaking to his child welfare caseworker. They were working on a more intensive environment and placement for him, because he was not going to be able to succeed living at home with his healthcare consultant/ex-girlfriend. The child welfare caseworker is named Mikaela Irving and her number is [phone], extension [phone]. Dr. Lawrence does feel that the patient would benefit from an inpatient stay. But his caregiver says that did not work a year ago. He was only okay for a couple of days and then he started regressing again. However Dr. Lawrence feels that stabilization of his mood, and his psy chosis would be beneficial before he is placed in any permanent residential situation. On February 21, we gave him Zyprexa as he was increasingly spiraling with his agitation of going to the bathroom, getting out of bed with the IV pole in place. It seems to have helpe, he was more aware of his environment, was not agitated, and actually was speaking full sentences. Since 02/23, he has been remarkably better in comparison to the catatonia from before. He is getting out of bed on his own. On his own, he will grab the walker to go walk down the hallway. Speaking to me, speaking to the nurses. Asking when he will go home. He continues to be mobile, but needs supervision, a PROTOCOL MANAGER walks the hallways with him. He is very impulsive. Needs repetitive prompts to keep him focused. PT has seen him again. They still feel he needs 24/7 supervision. He has been on Cymbalta since February 15. That was his home medication continued. He has been on Zyprexa ODT since February 23. He is also on Ativan sublingual 0.5 mg twice a day. We did order Haldol 2 mg prn (mostly to be used in the middle of the night) if needed for agitation. Plan: Continue his Cymbalta, Zyprexa, Ativan. It seems to be the combination that is working for him. When he gets out of the hospital he should follow-up with his psychiatrist, Dr. Lawrence. At this point he is medically stable. Social work is working on a plan for discharge. We do not think he can go home to his caregiver/ex-girlfriend because she states that she cannot take care of him /. Prior to this admission, his child welfare caseworker with his psychiatrist were working on permanent placement in an inpatient psychiatric prison. I do not know if they will go back to that plan, or if he will be placed permanently, but he still cannot be left alone. 2) Catatonia He was almost mute and exhibited catatonia This has resolved as described in #1, on the meds described in #1 3) Schizophrenia As per Hx. 4) Left arm swelling Improving The appearance is that of dependent edema, perhaps he laid on that arm when he slept. Ultrasound duplex Doppler was done on February 18 to make sure he did not have a DVT. That study was negative. He continues to have left arm edema and left hand edema. But there is no redness, no heat. He can flex and extend at the elbow and at the wrist. Fingers looked like sausages. Skin is pink. Good capillary refill. Temperature of the arm and the hand is normal. 5) Toe infection Improving No fever. He really did not have any systemic complaints of infection. He did not even tell me it hurts. Plain film foot x-ray of the third toe on the right foot did not have any significant abnormalities. No fractures or dislocations. No suspicious bony lesions. No suspicious soft tissue calcifications or masses. Ever since Dr. Nunez lanced it, and it drained yellow purulent material, the soft tissue swelling has gone down and the redness and edema have improved. Plan: Continue Keflex p.o. for a total of 7 days. That would be February 28. 6) CKD (acute kidney injury)/hypokalemia Conclusion/Plan: On admission, he was visibly dehydrated clinically. His BUN/creat have improved from admission, since iv fluids were started. His baseline creat is 1.1 (records were reviewed). This Angelo was likely from underlying volume depletion in addition to the rhabdo. IVF stopped 02/21. Since admission, 2.1>> 1.7>> 1.6>> 1.5>> 1.4>>1.3>> 1.4 for several days. This creatinine of 1.3-1.4 appears to be his new baseline. Plan: Avoid nephrotoxins Encourage fluid intake Follow BMP intermittently 7) DM type 2 (diabetes mellitus, type 2) Conclusion/Plan: He was on metformin at home. His A1c came back very good at 6.3. He is eating 100% of his meals. Metformin resumed February 22. Fasting glucose was 105 on February 24 it was as low as 87. Plan: Continue diabetic diet and Metformin Continue fingersticks only in the morning 8) Abrasions of multiple sites Conclusion/Plan: These were caused by his frequent falls. As per photos taken by nursing. These are all healing well. Plan: We will provide topical care where necessary 9) Fall at home Conclusion/Plan: Unclear why this gentleman kept on falling at home. His caregiver wonders if he just forgot to use his walker. They are not seizures. There was no syncope. There was no orthostasis when we checked for that earlier this admission. He may have been intermittently oversedated on his Buprenorphine patch since we strongly suspect he was getting intermittently, which has been stopped completely here. Here, he is watched carefully by nursing. He has had no falls, and he gets up OOB independently multiple times daily. He initially had orthostatic vital signs being checked when he got here. Those have been discontinued. We notice he has slight ataxia. And he is very impulsive. So he has poor insight and may be putting himself in situations where he falls. Social work is working closely with his caregiver, trying to formulate plans for this gentlemen. His daughter will be his DPOA. 10) Poor hygiene One of the examples Mer described to me was that she needs to wipe his gilliam after he eats because he is so messy. He is less able to feed himself over just this past year. Here, he continues to be quite a messy eater. Food on the table, food on the floor. But he is eating. His eyelashes had crusted debris. Unknown period of time that he was laying on the floor with his head under the bed, until Mer found him that way and needed to lift him. He completed 7 days of Garamycin. He also has been witnessed to try to pull his own feces out of his anus, because he thinks "people are inside of him". 11) Abnormal EKG Conclusion/Plan: This patient has an abnromal EKG showing early R/S transition which could signify cor pulmonale, si milar to 2 months ago. An Echo was done to check if he has cor pulmonale, and it showed: an essentially normal heart, with normal LV size and systolic function but grade 1 diastolic function present and normal RV size and function were seen. 12) Small rectal fissures Hydrocortisone mixture with lidocaine mixture ordered to apply every 3-4 hours as needed, that was started 02/19, but he is not really able to tell us if this helps or not. This patient was using his fingers to disimpact himself to get "those things" out of his rectum. Therefore, possibly the fissures were act ually abrasions from his fingernails. 13) Rhabdomyolysis, resolved It was caused by trauma, his recurrent falls. The CPK on admission was [id number] by February 23. We stopped his IV fluids February 21 because he kept on pulling on the IV, and the IV pole would also get tangled. And it was becoming a fall risk. His creat did rise and he has a new baseline, mildly abnomal creatinine. Plan: continue to encourage liquid po intake. Qualifiers: Rhabdomyolysis type: traumatic 14) Buprenorphine use, stopped Conclusion/Plan: Discontinued According to history, this was ordered for chronic back pain. We now think this was over sedating him and adding to the falls. In addition, pharmacy learned that his last prescription was written by his PCP 1 year ago, it was ordered for 13 weeks, so he should have run out many months ago, however there are still several patches available in the box that Mer brought from home. We therefore suspect that he was not getting patches on a routine scheduled basis, probably just haphazardly. Plan: He has had no c/o back pain, and we did not reorder buprenorphine patches q week - Current Meds Current Meds: Current Medications Generic Name Dose Route Start Last Admin Trade Name Jyoti PRN Reason Stop Dose Admin Acetaminophen 650 mg 02/15/23 19:57 03/01/23 15:48 Acetaminophen 325 Mg Tablet PO 650 mg Q4HR PRN Administration Pain or Fever > 38C (100.4F) Aspirin 81 mg 02/18/23 09:00 03/02/23 08:22 Aspirin Ec 81 Mg Tablet PO 81 mg DAILY ANGELA Administration Docusate Sodium 250 - 500 mg 02/26/23 17:00 03/02/23 08:23 Docusate Sodium 250 Mg Capsule PO 250 mg BID ANGELA Administration Duloxetine HCl 30 mg 02/15/23 13:30 03/02/23 08:22 Duloxetine 30 Mg Capsule PO 30 mg DAILY ANGELA Administration Fluticasone Propionate 1 sprays 02/17/23 09:00 03/02/23 08:26 Fluticasone Nasal [place] CRISTIAN 1 spray DAILY ANGELA Administration Haloperidol 2 mg 02/22/23 13:06 02/26/23 14:41 Haloperidol 5 Mg/Ml Vial IM 2 mg DAILY PRN Administration Agitation Ibuprofen 600 mg 02/15/23 19:57 03/01/23 20:00 Ibuprofen 600 Mg Tablet PO 600 mg Q6HR PRN Administration MINOR PAIN Lidocaine HCl 1 ml 02/23/23 13:54 02/26/23 13:59 Lidocaine Jelly 2% 6 Ml Jel.Pf.Shanda TOP 1 ml TID PRN Administration anal itching pain Lorazepam 0.5 mg 02/21/23 21:00 03/02/23 08:22 Lorazepam 0.5 Mg Tablet SL 0.5 mg BID ANGELA Administration Magnesium Oxide 400 mg 02/16/23 08:00 03/02/23 08:23 Magnesium Oxide 400 Mg Tablet PO 400 mg DAILYWM ANGELA Administration Metformin HCl 1,000 mg 02/22/23 17:00 03/02/23 16:48 Metformin 500 Mg Tablet PO 1,000 mg BIDWM ANGELA Administration Multivitamins/Minerals 1 tab 02/18/23 09:00 03/02/23 08:22 Multivitamin W/Minerals Tablet PO 1 tab DAILYWM ANGELA Administration Olanzapine 5 mg 02/23/23 21:00 03/02/23 08:23 Olanzapine Odt 5 Mg Tablet TL 5 mg BID ANGELA Administration Polyethylene Glycol 17 gm 02/17/23 18:00 03/02/23 09:33 Polyethylene Glycol 3350 17 Gm Packet PO Not Given DAILY ANGELA Senna 8.6 - 17.2 mg 02/26/23 17:00 03/02/23 08:23 Senna 8.6 Mg Tablet PO 8.6 mg BID ANGELA Administration - Lab Result Fish Bone Diagrams: 03/05/23 05:20 03/05/23 05:20 - Additional Planning My Orders: My Active Orders 03/03/23 05:00 CBC - COMP BLD CT W/AUTO DIFF [HEME] DAILYLAB CMP [COMPREHENSIVE METABOLIC PANEL] [CHEM] DAILYLAB Subjective - Subjective Nursing Reports: Other (Is impulsive, stands and walks with his walker in oom and in hallways, multiple times a day. Is minimally communicative.) Objective Vital Signs: Vital Signs - 24 hr 03/01/23 03/02/23 03/02/23 23:49 08:00 15:59 Temperature 36.5 C 36.4 C L 36.7 C Heart Rate [ 69 60 77 Brachial] Respiratory 15 17 20 Rate Blood Pressure 125/57 L 139/85 H [Left Brachial artery] Blood Pressure 133/77 H [Right Brachial artery] O2 Saturation 95 99 96 Oxygen O2 Source Room air I&O (Last 24 Hrs): Intake and Output Totals x24h 02/28/23 03/01/23 03/02/23 23:59 23:59 23:59 Intake Total 2194 1880 1540 Balance 2194 1880 1540 General: Alert, No acute distress HEENT: EOMI Neck: Supple, No JVD Neuro: Alert, Non Focal, Other (Minimally communicative, impulsive.) Cardiovascular: Regular rate Respiratory: No respiratory distress Abdomen: Soft Extremities: No clubbing, No edema, No tenderness/swelling - Results Results: Laboratory Results WBC 6.9 x10^3/uL (4.8-10.8) 02/26/23 05:38 RBC 3.80 10^6/uL (4.70-6.10) L 02/26/23 05:38 Hgb 11.2 g/dL (14.0-18.0) L 02/26/23 05:38 Hct 34.3 % (42.0-52.0) L 02/26/23 05:38 MCV 90.3 fL (80.0-94.0) 02/26/23 05:38 MCH 29.5 pg (27.0-31.0) 02/26/23 05:38 MCHC 32.7 g/dL (32.0-36.0) 02/26/23 05:38 RDW 12.9 % (12.0-15.0) 02/26/23 05:38 Plt Count 310 10^3/uL (130-450) 02/26/23 05:38 MPV 8.9 fL (7.4-11.4) 02/26/23 05:38 Neut # (Auto) 4.3 10^3/uL (1.5-6.6) 02/26/23 05:38 Lymph # (Auto) 1.8 10^3/uL (1.5-3.5) 02/26/23 05:38 [place] # (Auto) 0.5 10^3/uL (0.0-1.0) 02/26/23 05:38 Eos # (Auto) 0.3 10^3/uL (0.0-0.7) 02/26/23 05:38 Baso # (Auto) 0.0 10^3/uL (0.0-0.1) 02/26/23 05:38 Absolute Nucleated RBC 0.00 x10^3/uL 02/26/23 05:38 Total Counted 100 02/14/23 03:15 Band Neuts % (Manual) 9 % (0-10) 02/14/23 03:15 Abnorm Lymph % (Manual) 0 % 02/14/23 03:15 Nucleated RBC % 0.0 /100WBC 02/26/23 05:38 Neutrophils # (Manual) 18.2 10^3/uL (1.5-6.6) H 02/14/23 03:15 Lymphocytes # (Manual) 1.0 10^3/uL (1.5-3.5) L 02/14/23 03:15 Monocytes # (Manual) 1.2 10^3/uL (0.0-1.0) H 02/14/23 03:15 Eosinophils # (Manual) 0.0 10^3/uL (0-0.7) 02/14/23 03:15 Basophils # (Manual) 0.0 10^3/uL (0-0.1) 02/14/23 03:15 Differential Comment MANUAL DIFFERENTIAL 02/14/23 03:15 Sodium 140 mmol/L (135-145) 02/26/23 05:38 Potassium 3.8 mmol/L (3.5-5.0) 02/26/23 05:38 Chloride 104 mmol/L (101-111) 02/26/23 05:38 Carbon Dioxide 27 mmol/L (21-32) 02/26/23 05:38 Anion Gap 9.0 (6-13) 02/26/23 05:38 BUN 17 mg/dL (6-20) 02/26/23 05:38 Creatinine 1.4 mg/dL (0.6-1.2) H 02/26/23 05:38 Estimated GFR (MDRD) 52 (>89) L 02/26/23 05:38 Glucose 106 mg/dL (70-100) H 02/26/23 05:38 Estimat Average Glucose 134 mg/dL (70-100) H 02/15/23 05:20 Hemoglobin A1c % 6.3 % (4.27-6.07) H 02/15/23 05:20 Calcium 9.2 mg/dL (8.5-10.3) 02/26/23 05:38 Magnesium 1.5 mg/dL (1.7-2.8) L 02/17/23 05:35 Total Bilirubin 0.8 mg/dL (0.2-1.0) 02/14/23 03:15 AST 155 IU/L (10-42) H 02/14/23 03:15 ALT 58 IU/L (10-60) 02/14/23 03:15 Alkaline Phosphatase 107 IU/L (42-121) 02/14/23 03:15 Total Creatine Kinase 440 IU/L (22-269) H 02/23/23 14:10 CK-MB (CK-2) 265.9 ng/mL (0.6-6.3) H 02/14/23 03:15 Total Protein 8.3 g/dL (6.7-8.2) H 02/14/23 03:15 Albumin 4.2 g/dL (3.2-5.5) 02/14/23 03:15 Globulin 4.1 g/dL (2.1-4.2) 02/14/23 03:15 Albumin/Globulin Ratio 1.0 (1.0-2.2) 02/14/23 03:15 Lipase 34 U/L (22-51) 02/14/23 03:15 TSH 1.21 uIU/mL (0.34-5.60) 02/14/23 03:15 Urine Color YELLOW 02/18/23 15:10 Urine Clarity CLEAR (CLEAR) 02/18/23 15:10 Urine pH 5.5 PH (5.0-7.5) 02/18/23 15:10 Ur Specific [place] 1.020 (1.002-1.030) 02/18/23 15:10 Urine Protein NEGATIVE mg/dL (NEGATIVE) 02/18/23 15:10 Urine Glucose (UA) NEGATIVE mg/dL (NEGATIVE) 02/18/23 15:10 Urine Ketones NEGATIVE mg/dL (NEGATIVE) 02/18/23 15:10 Urine Occult Blood MODERATE (NEGATIVE) H 02/18/23 15:10 Urine Nitrite NEGATIVE (NEGATIVE) 02/18/23 15:10 Urine Bilirubin NEGATIVE (NEGATIVE) 02/18/23 15:10 Urine Urobilinogen 0.2 (NORMAL) E.U./dL (NORMAL) 02/18/23 15:10 Ur Leukocyte Esterase TRACE (NEGATIVE) H 02/18/23 15:10 Urine RBC 11-25 /HPF (0-5) H 02/18/23 15:10 Urine WBC 6-10 /HPF (0-3) H 02/18/23 15:10 Ur Squamous Epith Cells RARE Squamous (<= Few) 02/18/23 15:10 Urine Bacteria None Seen /HPF (None Seen) 02/18/23 15:10 Urine Sperm PRESENT 02/18/23 15:10 Ur Microscopic Review INDICATED 02/14/23 10:34 Urine Culture Comments INDICATED 02/18/23 15:10 Urine Opiates Screen NEGATIVE (NEGATIVE) 02/14/23 10:34 Ur Oxycodone Screen NEGATIVE (NEGATIVE) 02/14/23 10:34 Urine Methadone Screen NEGATIVE (NEGATIVE) 02/14/23 10:34 Ur Propoxyphene Screen NEGATIVE (NEGATIVE) 02/14/23 10:34 Ur Barbiturates Screen NEGATIVE (NEGATIVE) 02/14/23 10:34 Ur Tricyclics Screen NEGATIVE (NEGATIVE) 02/14/23 10:34 Ur Phencyclidine Scrn NEGATIVE (NEGATIVE) 02/14/23 10:34 Ur Amphetamine Screen NEGATIVE (NEGATIVE) 02/14/23 10:34 U Methamphetamines Scrn NEGATIVE (NEGATIVE) 02/14/23 10:34 U Benzodiazepines Scrn NEGATIVE (NEGATIVE) 02/14/23 10:34 Urine Cocaine Screen NEGATIVE (NEGATIVE) 02/14/23 10:34 U Cannabinoids Screen POSITIVE (NEGATIVE) H 02/14/23 10:34 Ethyl Alcohol < 5.0 mg/dL 02/14/23 03:15
[2023-03-03 05:16] LABS: BASOPHILS % (AUTO) 0.4 %; EOSINOPHILS # (AUTO) 0.2 10^3/uL (0.0-0.7); EOSINOPHILS % (AUTO) 2.6 %; HCT - HEMATOCRIT 36.6 % (42.0-52.0); HGB - HEMOGLOBIN 11.9 g/dL (14.0-18.0); LYMPHOCYTES # (AUTO) 2.5 10^3/uL (1.5-3.5); LYMPHOCYTES % (AUTO) 30.2 %; MEAN CORPUSCULAR HEMOGLOBIN 29.4 pg (27.0-31.0); MEAN CORPUSCULAR HGB CONC 32.5 g/dL (32.0-36.0); MEAN CORPUSCULAR VOLUME 90.4 fL (80.0-94.0); MEAN PLATELET VOLUME 9.2 fL (7.4-11.4); MONOCYTES # (AUTO) 0.7 10^3/uL (0.0-1.0); MONOCYTES % (AUTO) 8.1 %; NEUTROPHILS # (AUTO) 4.9 10^3/uL (1.5-6.6); NEUTROPHILS % (AUTO) 58.3 %; PLT - PLATELET COUNT 379 10^3/uL (130-450); RED BLOOD COUNT 4.05 10^6/uL (4.70-6.10); RED CELL DISTRIBUTION WIDTH 12.7 % (12.0-15.0); WHITE BLOOD COUNT 8.3 x10^3/uL (4.8-10.8)
[2023-03-03 05:29] LABS: ALBUMIN/GLOBULIN RATIO 1.3 (1.0-2.2); BILIRUBIN,TOTAL 0.3 mg/dL (0.2-1.0); CALCIUM 9.5 mg/dL (8.5-10.3); CREATININE 1.3 mg/dL (0.6-1.2); TOTAL PROTEIN 7.2 g/dL (6.7-8.2)
[2023-03-03] MEDS: polyethylene glycoL 3350 17 GM PACKET PO SCH (08:37)
[2023-03-03] MEDS: DOCUSATE SODIUM 250 MG CAPSULE PO SCH ×2 (08:38→20:58)
[2023-03-03] MEDS: OLANZapine ODT 5 MG TABLET TL SCH ×2 (08:38→20:59)
[2023-03-03] MEDS: FLUTICASONE NASAL SPRAY NAS SCH (08:38)
[2023-03-03] MEDS: DULoxetine 30 MG CAPSULE PO SCH (08:38)
[2023-03-03] MEDS: ASPIRIN EC 81 MG TABLET PO SCH (08:38)
[2023-03-03] MEDS: MULTIVITAMIN W/MINERALS TABLET PO SCH (08:39)
[2023-03-03] MEDS: MAGNESIUM OXIDE 400 MG TABLET PO SCH (08:39)
[2023-03-03] MEDS: SENNA 8.6 MG TABLET PO SCH ×2 (08:39→20:58)
[2023-03-03] MEDS: LORazepam 0.5 MG TABLET SL SCH ×2 (08:39→20:58)
[2023-03-03] MEDS: metFORMIN 500 MG TABLET PO SCH ×2 (08:39→17:24)
--- NOTE | 2023-03-03 18:39 | PROVIDER PROGRESS NOTE ---
Assessment/Plan - Problem List (1) Major depressive disorder, recurrent, severe with psychotic symptoms Assessment/Plan: At admission, the patient just stared at hospitalist provider and other staff after being asked a question, and occasionally softly mumbled an answer, to what was asked 2 questions ago. He did not participate in any discussions. He did initially keep asking when Mer will visit and she visited him on 02/17. I spoke to his caregiver, Mer in the room at his bedside on 02/17 and updated her. I also spoke to Mer by phone on 02/16, who stated that he has worsened since 2010, he goes to a psychiatrist, has had his psychiatric meds adjusted and we do have the current proper medication list. Mer said that when he stares at you. "it is because the people that are in his body do not like what they are hearing". Therefore, when he is staring, his symptoms are not under control. Mer said this is his catatonia. Mer said that the patient can no longer make decisions for himself, and she has to remind him and cue him multiple times to do something. She is working with the pt's daughter Christina, and the patient's leather case finisher, trying to get him permanent placement. At home he takes Risperdal 3 mg p.o. twice daily. That was resumed. But then discontinued due to sedation. February 18 & February 19, he was unhappy and describing discomfort in his rectum and we saw some small linear rectal fissures. We resumed his Risperdal 3 mg p.o. twice a day on 02/19 and his mentation and impulsivity did not improved. Hospitalist had initially ordered telepsych 02/19. On 02/[address] Lawrence, his psychiatrist, at [phone]. She said that she has been seeing him off and on for over a year, remotely, over Zoom. She last saw him on Zoom May 2022 right before she went on maternity leave, when he was functioning well. He had minimal psychosis. Mild depression. He was on sertraline. She came back from maternity leave and immediately noticed that he had a substantial change those 6 to 7 months later. He was hallucinating, falling, having episodes of defecation and urination all over the floor in his house. He felt that aliens, or Indians, or other individuals in his life were putting stuff up his rectum and he was desperate to pull it out but he just could not pull them out. At that time he was using excessive, excessive cannabis so they had him stop it for 2 months and he did not get any better. No clear reason of why he was falling. He then started sliding into being mute and unresponsive. 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 Seroquel had no effect, benzodiazepines for the mutism had no effect, sertraline had no effect. He then started getting extraparamidal signs on Risperdal 3 mg p.o. 3 times daily so she decreased it to 3 mg twice daily. In spite of all this, the muteness has become more and more predominant. Benzodiazepines usually help but Ativan did not help. So what our Hospitalist described to her is exactly what she was seeing. She was in the process of speaking to his leather case finisher. They were working on a more intensive environment and placement for him, because he was not going to be able to succeed living at home with his out of school hours care worker/ex-girlfriend. The leather case finisher is named Mikaela Irving and her number is [phone], extension [phone]. Dr. Lawrence does feel that the patient would benefit from an inpatient stay. But his caregiver says that did not work a year ago. He was only okay for a couple of days and then he started regressing again. However Dr. Lawrence feels that stabilization of his mood, and his psy chosis would be beneficial before he is placed in any permanent residential situation. On February 21, we gave him Zyprexa as he was increasingly spiraling with his agitation of going to the bathroom, getting out of bed with the IV pole in place. It seems to have helpe, he was more aware of his environment, was not agitated, and actually was speaking full sentences. Since 02/23, he has been remarkably better in comparison to the catatonia from before. He is getting out of bed on his own. On his own, he will grab the walker to go walk down the hallway. Speaking to me, speaking to the nurses. Asking when he will go home. He continues to be mobile, but needs supervision, a HEALTH ADMINISTRATION TEACHER walks the hallways with him. He is very impulsive. Needs repetitive prompts to keep him focused. PT has seen him again. They still feel he needs 24/7 supervision. He has been on Cymbalta since February 15. That was his home medication continued. He has been on Zyprexa ODT since February 23. He is also on Ativan sublingual 0.5 mg twice a day. We did order Haldol 2 mg prn (mostly to be used in the middle of the night) if needed for agitation. Plan: Continue his Cymbalta, Zyprexa, Ativan. It seems to be the combination that is working for him. When he gets out of the hospital he should follow-up with his psychiatrist, Dr. Lawrence. At this point he is medically stable. Social work is working on a plan for discharge. We do not think he can go home to his caregiver/ex-girlfriend because she states that she cannot take care of him /. Prior to this admission, his leather case finisher with his psychiatrist were working on permanent placement in an inpatient psychiatric care home. I do not know if they will go back to that plan, or if he will be placed permanently, but he still cannot be left alone. 2) Catatonia He was almost mute and exhibited catatonia This has resolved as described in #1, on the meds described in #1 3) Schizophrenia As per Hx. 4) Left arm swelling Improving The appearance is that of dependent edema, perhaps he laid on that arm when he slept. Ultrasound duplex Doppler was done on February 18 to make sure he did not have a DVT. That study was negative. He continues to have left arm edema and left hand edema. But there is no redness, no heat. He can flex and extend at the elbow and at the wrist. Fingers looked like sausages. Skin is pink. Good capillary refill. Temperature of the arm and the hand is normal. 5) Toe infection Improving No fever. He really did not have any systemic complaints of infection. He did not even tell me it hurts. Plain film foot x-ray of the third toe on the right foot did not have any significant abnormalities. No fractures or dislocations. No suspicious bony lesions. No suspicious soft tissue calcifications or masses. Ever since Dr. Nunez lanced it, and it drained yellow purulent material, the soft tissue swelling has gone down and the redness and edema have improved. Plan: Continue Keflex p.o. for a total of 7 days. That would be February 28. 6) CKD (acute kidney injury)/hypokalemia Conclusion/Plan: On admission, he was visibly dehydrated clinically. His BUN/creat have improved from admission, since iv fluids were started. His baseline creat is 1.1 (records were reviewed). This Angelo was likely from underlying volume depletion in addition to the rhabdo. IVF stopped 02/21. Since admission, 2.1>> 1.7>> 1.6>> 1.5>> 1.4>>1.3>> 1.4 for several days. This creatinine of 1.3-1.4 appears to be his new baseline. Plan: Avoid nephrotoxins Encourage fluid intake Follow BMP intermittently 7) DM type 2 (diabetes mellitus, type 2) Conclusion/Plan: He was on metformin at home. His A1c came back very good at 6.3. He is eating 100% of his meals. Metformin resumed February 22. Fasting glucose was 105 on February 24 it was as low as 87. Plan: Continue diabetic diet and Metformin Continue fingersticks only in the morning 8) Abrasions of multiple sites Conclusion/Plan: These were caused by his frequent falls. As per photos taken by nursing. These are all healing well. Plan: We will provide topical care where necessary 9) Fall at home Conclusion/Plan: Unclear why this gentleman kept on falling at home. His caregiver wonders if he just forgot to use his walker. They are not seizures. There was no syncope. There was no orthostasis when we checked for that earlier this admission. He may have been intermittently oversedated on his Buprenorphine patch since we strongly suspect he was getting intermittently, which has been stopped completely here. Here, he is watched carefully by nursing. He has had no falls, and he gets up OOB independently multiple times daily. He initially had orthostatic vital signs being checked when he got here. Those have been discontinued. We notice he has slight ataxia. And he is very impulsive. So he has poor insight and may be putting himself in situations where he falls. Social work is working closely with his caregiver, trying to formulate plans for this gentlemen. His daughter will be his DPOA. 10) Poor hygiene One of the examples Mer described to me was that she needs to wipe his gilliam after he eats because he is so messy. He is less able to feed himself over just this past year. Here, he continues to be quite a messy eater. Food on the table, food on the floor. But he is eating. His eyelashes had crusted debris. Unknown period of time that he was laying on the floor with his head under the bed, until Mer found him that way and needed to lift him. He completed 7 days of Garamycin. He also has been witnessed to try to pull his own feces out of his anus, because he thinks "people are inside of him". 11) Abnormal EKG Conclusion/Plan: This patient has an abnromal EKG showing early R/S transition which could signify cor pulmonale, si milar to 2 months ago. An Echo was done to check if he has cor pulmonale, and it showed: an essentially normal heart, with normal LV size and systolic function but grade 1 diastolic function present and normal RV size and function were seen. 12) Small rectal fissures Hydrocortisone mixture with lidocaine mixture ordered to apply every 3-4 hours as needed, that was started 02/19, but he is not really able to tell us if this helps or not. This patient was using his fingers to disimpact himself to get "those things" out of his rectum. Therefore, possibly the fissures were act ually abrasions from his fingernails. 13) Rhabdomyolysis, resolved. It was caused by trauma, his recurrent falls. The CPK on admission was [id number] by February 23. We stopped his IV fluids February 21 because he kept on pulling on the IV, and the IV pole would also get tangled. And it was becoming a fall risk. His creat did rise and he has a new baseline, mildly abnomal creatinine. Plan: continue to encourage liquid po intake. Qualifiers: Rhabdomyolysis type: traumatic 14) Buprenorphine use, stopped Conclusion/Plan: Discontinued According to history, this was ordered for chronic back pain. We now think this was over sedating him and adding to the falls. In addition, pharmacy learned that his last prescription was written by his PCP 1 year ago, it was ordered for 13 weeks, so he should have run out many months ago, however there are still several patches available in the box that Mer brought from home. We therefore suspect that he was not getting patches on a routine scheduled basis, probably just haphazardly. Plan: He has had no c/o back pain, and we did not reorder buprenorphine patches q week - Current Meds Current Meds: Current Medications Generic Name Dose Route Start Last Admin Trade Name Jyoti PRN Reason Stop Dose Admin Acetaminophen 650 mg 02/15/23 19:57 03/01/23 15:48 Acetaminophen 325 Mg Tablet PO 650 mg Q4HR PRN Administration Pain or Fever > 38C (100.4F) Aspirin 81 mg 02/18/23 09:00 03/03/23 08:38 Aspirin Ec 81 Mg Tablet PO 81 mg DAILY ANGELA Administration Docusate Sodium 250 - 500 mg 02/26/23 17:00 03/03/23 08:38 Docusate Sodium 250 Mg Capsule PO 250 mg BID ANGELA Administration Duloxetine HCl 30 mg 02/15/23 13:30 03/03/23 08:38 Duloxetine 30 Mg Capsule PO 30 mg DAILY ANGELA Administration Fluticasone Propionate 1 sprays 02/17/23 09:00 03/03/23 08:38 Fluticasone Nasal [place] CRISTIAN 1 spray DAILY ANGELA Administration Haloperidol 2 mg 02/22/23 13:06 02/26/23 14:41 Haloperidol 5 Mg/Ml Vial IM 2 mg DAILY PRN Administration Agitation Ibuprofen 600 mg 02/15/23 19:57 03/01/23 20:00 Ibuprofen 600 Mg Tablet PO 600 mg Q6HR PRN Administration MINOR PAIN Lidocaine HCl 1 ml 02/23/23 13:54 02/26/23 13:59 Lidocaine Jelly 2% 6 Ml Jel.Pf.Shanda TOP 1 ml TID PRN Administration anal itching pain Lorazepam 0.5 mg 02/21/23 21:00 03/03/23 08:39 Lorazepam 0.5 Mg Tablet SL 0.5 mg BID ANGELA Administration Magnesium Oxide 400 mg 02/16/23 08:00 03/03/23 08:39 Magnesium Oxide 400 Mg Tablet PO 400 mg DAILYWM ANGELA Administration Metformin HCl 1,000 mg 02/22/23 17:00 04/09/23 17:24 Metformin 500 Mg Tablet PO 1,000 mg BIDWM ANGELA Administration Multivitamins/Minerals 1 tab 02/18/23 09:00 03/03/23 08:39 Multivitamin W/Minerals Tablet PO 1 tab DAILYWM ANGELA Administration Olanzapine 5 mg 02/23/23 21:00 03/03/23 08:38 Olanzapine Odt 5 Mg Tablet TL 5 mg BID ANGELA Administration Polyethylene Glycol 17 gm 02/17/23 18:00 03/03/23 08:37 Polyethylene Glycol 3350 17 Gm Packet PO 17 gm DAILY ANGELA Administration Senna 8.6 - 17.2 mg 02/26/23 17:00 03/03/23 08:39 Senna 8.6 Mg Tablet PO 8.6 mg BID ANGELA Administration - Lab Result Fish Bone Diagrams: 03/05/23 05:20 03/05/23 05:20 Subjective - Subjective Nursing Reports: Other (Is impulsive, stands and walks with his walker in oom and in hallways, multiple times a day. Is minimally communicative.) Objective Vital Signs: Vital Signs - 24 hr 03/02/23 03/03/23 03/03/23 23:35 08:00 16:00 Temperature 36.7 C 36.9 C 36.4 C L Heart Rate [ 79 87 91 Brachial] Respiratory 16 17 16 Rate Blood Pressure 154/73 H 115/78 130/74 [Right Brachial artery] O2 Saturation 97 97 94 Oxygen O2 Source Room air I&O (Last 24 Hrs): Intake and Output Totals x24h 03/01/23 03/02/23 03/03/23 23:59 23:59 23:59 Intake Total 1880 2260 1240 Balance 1880 2260 1240 General: Alert, No acute distress, Other (Male pattern baldness) HEENT: EOMI Neck: Supple, No JVD Neuro: Alert, Non Focal Cardiovascular: Regular rate Respiratory: No respiratory distress Abdomen: No tenderness Extremities: No clubbing, No edema, No tenderness/swelling - Results Results: Laboratory Results WBC 8.3 x10^3/uL (4.8-10.8) 03/03/23 04:48 RBC 4.05 10^6/uL (4.70-6.10) L 03/03/23 04:48 Hgb 11.9 g/dL (14.0-18.0) L 03/03/23 04:48 Hct 36.6 % (42.0-52.0) L 03/03/23 04:48 MCV 90.4 fL (80.0-94.0) 03/03/23 04:48 MCH 29.4 pg (27.0-31.0) 03/03/23 04:48 MCHC 32.5 g/dL (32.0-36.0) 03/03/23 04:48 RDW 12.7 % (12.0-15.0) 03/03/23 04:48 Plt Count 379 10^3/uL (130-450) 03/03/23 04:48 MPV 9.2 fL (7.4-11.4) 03/03/23 04:48 Neut # (Auto) 4.9 10^3/uL (1.5-6.6) 03/03/23 04:48 Lymph # (Auto) 2.5 10^3/uL (1.5-3.5) 03/03/23 04:48 [place] # (Auto) 0.7 10^3/uL (0.0-1.0) 03/03/23 04:48 Eos # (Auto) 0.2 10^3/uL (0.0-0.7) 03/03/23 04:48 Baso # (Auto) 0.0 10^3/uL (0.0-0.1) 03/03/23 04:48 Absolute Nucleated RBC 0.00 x10^3/uL 03/03/23 04:48 Total Counted 100 02/14/23 03:15 Band Neuts % (Manual) 9 % (0-10) 02/14/23 03:15 Abnorm Lymph % (Manual) 0 % 02/14/23 03:15 Nucleated RBC % 0.0 /100WBC 03/03/23 04:48 Neutrophils # (Manual) 18.2 10^3/uL (1.5-6.6) H 02/14/23 03:15 Lymphocytes # (Manual) 1.0 10^3/uL (1.5-3.5) L 02/14/23 03:15 Monocytes # (Manual) 1.2 10^3/uL (0.0-1.0) H 02/14/23 03:15 Eosinophils # (Manual) 0.0 10^3/uL (0-0.7) 02/14/23 03:15 Basophils # (Manual) 0.0 10^3/uL (0-0.1) 02/14/23 03:15 Differential Comment MANUAL DIFFERENTIAL 02/14/23 03:15 Sodium 140 mmol/L (135-145) 03/03/23 04:48 Potassium 4.0 mmol/L (3.5-5.0) 03/03/23 04:48 Chloride 105 mmol/L (101-111) 03/03/23 04:48 Carbon Dioxide 27 mmol/L (21-32) 03/03/23 04:48 Anion Gap 8.0 (6-13) 03/03/23 04:48 BUN 28 mg/dL (6-20) H 03/03/23 04:48 Creatinine 1.3 mg/dL (0.6-1.2) H 03/03/23 04:48 Estimated GFR (MDRD) 57 (>89) L 03/03/23 04:48 Glucose 105 mg/dL (70-100) H 03/03/23 04:48 Estimat Average Glucose 134 mg/dL (70-100) H 02/15/23 05:20 Hemoglobin A1c % 6.3 % (4.27-6.07) H 02/15/23 05:20 Calcium 9.5 mg/dL (8.5-10.3) 03/03/23 04:48 Magnesium 1.5 mg/dL (1.7-2.8) L 02/17/23 05:35 Total Bilirubin 0.3 mg/dL (0.2-1.0) 03/03/23 04:48 AST 25 IU/L (10-42) 03/03/23 04:48 ALT 33 IU/L (10-60) 03/03/23 04:48 Alkaline Phosphatase 77 IU/L (42-121) 03/03/23 04:48 Total Creatine Kinase 440 IU/L (22-269) H 02/23/23 14:10 CK-MB (CK-2) 265.9 ng/mL (0.6-6.3) H 02/14/23 03:15 Total Protein 7.2 g/dL (6.7-8.2) 03/03/23 04:48 Albumin 4.0 g/dL (3.2-5.5) 03/03/23 04:48 Globulin 3.2 g/dL (2.1-4.2) 03/03/23 04:48 Albumin/Globulin Ratio 1.3 (1.0-2.2) 03/03/23 04:48 Lipase 34 U/L (22-51) 02/14/23 03:15 TSH 1.21 uIU/mL (0.34-5.60) 02/14/23 03:15 Urine Color YELLOW 02/18/23 15:10 Urine Clarity CLEAR (CLEAR) 02/18/23 15:10 Urine pH 5.5 PH (5.0-7.5) 02/18/23 15:10 Ur Specific [place] 1.020 (1.002-1.030) 02/18/23 15:10 Urine Protein NEGATIVE mg/dL (NEGATIVE) 02/18/23 15:10 Urine Glucose (UA) NEGATIVE mg/dL (NEGATIVE) 02/18/23 15:10 Urine Ketones NEGATIVE mg/dL (NEGATIVE) 02/18/23 15:10 Urine Occult Blood MODERATE (NEGATIVE) H 02/18/23 15:10 Urine Nitrite NEGATIVE (NEGATIVE) 02/18/23 15:10 Urine Bilirubin NEGATIVE (NEGATIVE) 02/18/23 15:10 Urine Urobilinogen 0.2 (NORMAL) E.U./dL (NORMAL) 02/18/23 15:10 Ur Leukocyte Esterase TRACE (NEGATIVE) H 02/18/23 15:10 Urine RBC 11-25 /HPF (0-5) H 02/18/23 15:10 Urine WBC 6-10 /HPF (0-3) H 02/18/23 15:10 Ur Squamous Epith Cells RARE Squamous (<= Few) 02/18/23 15:10 Urine Bacteria None Seen /HPF (None Seen) 02/18/23 15:10 Urine Sperm PRESENT 02/18/23 15:10 Ur Microscopic Review INDICATED 02/14/23 10:34 Urine Culture Comments INDICATED 02/18/23 15:10 Urine Opiates Screen NEGATIVE (NEGATIVE) 02/14/23 10:34 Ur Oxycodone Screen NEGATIVE (NEGATIVE) 02/14/23 10:34 Urine Methadone Screen NEGATIVE (NEGATIVE) 02/14/23 10:34 Ur Propoxyphene Screen NEGATIVE (NEGATIVE) 02/14/23 10:34 Ur Barbiturates Screen NEGATIVE (NEGATIVE) 02/14/23 10:34 Ur Tricyclics Screen NEGATIVE (NEGATIVE) 02/14/23 10:34 Ur Phencyclidine Scrn NEGATIVE (NEGATIVE) 02/14/23 10:34 Ur Amphetamine Screen NEGATIVE (NEGATIVE) 02/14/23 10:34 U Methamphetamines Scrn NEGATIVE (NEGATIVE) 02/14/23 10:34 U Benzodiazepines Scrn NEGATIVE (NEGATIVE) 02/14/23 10:34 Urine Cocaine Screen NEGATIVE (NEGATIVE) 02/14/23 10:34 U Cannabinoids Screen POSITIVE (NEGATIVE) H 02/14/23 10:34 Ethyl Alcohol < 5.0 mg/dL 02/14/23 03:15
[2023-03-03] MEDS: IBUPROFEN 600 MG TABLET PO PRN (20:57)
[2023-03-04] MEDS: polyethylene glycoL 3350 17 GM PACKET PO SCH (09:07)
[2023-03-04] MEDS: MULTIVITAMIN W/MINERALS TABLET PO SCH (09:07)
[2023-03-04] MEDS: DULoxetine 30 MG CAPSULE PO SCH (09:07)
[2023-03-04] MEDS: SENNA 8.6 MG TABLET PO SCH ×2 (09:07→20:47)
[2023-03-04] MEDS: OLANZapine ODT 5 MG TABLET TL SCH ×2 (09:08→20:47)
[2023-03-04] MEDS: LORazepam 0.5 MG TABLET SL SCH ×2 (09:08→20:47)
[2023-03-04] MEDS: metFORMIN 500 MG TABLET PO SCH ×2 (09:08→17:10)
[2023-03-04] MEDS: FLUTICASONE NASAL SPRAY NAS SCH (09:08)
[2023-03-04] MEDS: DOCUSATE SODIUM 250 MG CAPSULE PO SCH ×2 (09:08→20:47)
[2023-03-04] MEDS: ASPIRIN EC 81 MG TABLET PO SCH (09:08)
[2023-03-04] MEDS: MAGNESIUM OXIDE 400 MG TABLET PO SCH (09:09)
--- NOTE | 2023-03-04 20:33 | PROVIDER PROGRESS NOTE ---
Assessment/Plan - Problem List (1) Major depressive disorder, recurrent, severe with psychotic symptoms Assessment/Plan: At admission, the patient just stared at hospitalist provider and other staff after being asked a question, and occasionally softly mumbled an answer, to what was asked 2 questions ago. He did not participate in any discussions. He did initially keep asking when Mer will visit and she visited him on 02/17. I spoke to his caregiver, Mer in the room at his bedside on 02/17 and updated her. I also spoke to Mer by phone on 02/16, who stated that he has worsened since 2010, he goes to a psychiatrist, has had his psychiatric meds adjusted and we do have the current proper medication list. Mer said that when he stares at you. "it is because the people that are in his body do not like what they are hearing". Therefore, when he is staring, his symptoms are not under control. Mer said this is his catatonia. Mer said that the patient can no longer make decisions for himself, and she has to remind him and cue him multiple times to do something. She is working with the pt's daughter Christina, and the patient's senior case manager, trying to get him permanent placement. At home he takes Risperdal 3 mg p.o. twice daily. That was resumed. But then discontinued due to sedation. February 18 & February 19, he was unhappy and describing discomfort in his rectum and we saw some small linear rectal fissures. We resumed his Risperdal 3 mg p.o. twice a day on 02/19 and his mentation and impulsivity did not improved. Hospitalist had initially ordered telepsych 02/19. On 02/[address] Lawrence, his psychiatrist, at [phone]. She said that she has been seeing him off and on for over a year, remotely, over Zoom. She last saw him on Zoom May 2022 right before she went on maternity leave, when he was functioning well. He had minimal psychosis. Mild depression. He was on sertraline. She came back from maternity leave and immediately noticed that he had a substantial change those 6 to 7 months later. He was hallucinating, falling, having episodes of defecation and urination all over the floor in his house. He felt that aliens, or Indians, or other individuals in his life were putting stuff up his rectum and he was desperate to pull it out but he just could not pull them out. At that time he was using excessive, excessive cannabis so they had him stop it for 2 months and he did not get any better. No clear reason of why he was falling. He then started sliding into being mute and unresponsive. 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 Seroquel had no effect, benzodiazepines for the mutism had no effect, sertraline had no effect. He then started getting extraparamidal signs on Risperdal 3 mg p.o. 3 times daily so she decreased it to 3 mg twice daily. In spite of all this, the muteness has become more and more predominant. Benzodiazepines usually help but Ativan did not help. So what our Hospitalist described to her is exactly what she was seeing. She was in the process of speaking to his case management associate. They were working on a more intensive environment and placement for him, because he was not going to be able to succeed living at home with his healthcare business analyst/ex-girlfriend. The case management associate is named Mikaela Irving and her number is [phone], extension [phone]. Dr. Lawrence does feel that the patient would benefit from an inpatient stay. But his caregiver says that did not work a year ago. He was only okay for a couple of days and then he started regressing again. However Dr. Lawrence feels that stabilization of his mood, and his psy chosis would be beneficial before he is placed in any permanent residential situation. On February 21, we gave him Zyprexa as he was increasingly spiraling with his agitation of going to the bathroom, getting out of bed with the IV pole in place. It seems to have helpe, he was more aware of his environment, was not agitated, and actually was speaking full sentences. Since 02/23, he has been remarkably better in comparison to the catatonia from before. He is getting out of bed on his own. On his own, he will grab the walker to go walk down the hallway. Speaking to me, speaking to the nurses. Asking when he will go home. He continues to be mobile, but needs supervision, a HYDRAULIC DREDGE OPERATOR walks the hallways with him. He is very impulsive. Needs repetitive prompts to keep him focused. PT has seen him again. They still feel he needs 24/7 supervision. He has been on Cymbalta since February 15. That was his home medication continued. He has been on Zyprexa ODT since February 23. He is also on Ativan sublingual 0.5 mg twice a day. We did order Haldol 2 mg prn (mostly to be used in the middle of the night) if needed for agitation. Plan: Continue his Cymbalta, Zyprexa, Ativan. It seems to be the combination that is working for him. When he gets out of the hospital he should follow-up with his psychiatrist, Dr. Lawrence. At this point he is medically stable. Social work is working on a plan for discharge. We do not think he can go home to his caregiver/ex-girlfriend because she states that she cannot take care of him /. Prior to this admission, his case management associate with his psychiatrist were working on permanent placement in an inpatient psychiatric prison. I do not know if they will go back to that plan, or if he will be placed permanently, but he still cannot be left alone. 2) Catatonia He was almost mute and exhibited catatonia This has resolved as described in #1, on the meds described in #1 3) Schizophrenia As per Hx. 4) Left arm swelling Improving The appearance is that of dependent edema, perhaps he laid on that arm when he slept. Ultrasound duplex Doppler was done on February 18 to make sure he did not have a DVT. That study was negative. He continues to have left arm edema and left hand edema. But there is no redness, no heat. He can flex and extend at the elbow and at the wrist. Fingers looked like sausages. Skin is pink. Good capillary refill. Temperature of the arm and the hand is normal. 5) Toe infection Improving No fever. He really did not have any systemic complaints of infection. He did not even tell me it hurts. Plain film foot x-ray of the third toe on the right foot did not have any significant abnormalities. No fractures or dislocations. No suspicious bony lesions. No suspicious soft tissue calcifications or masses. Ever since Dr. Nunez lanced it, and it drained yellow purulent material, the soft tissue swelling has gone down and the redness and edema have improved. Plan: Continue Keflex p.o. for a total of 7 days. That would be February 28. 6) CKD (acute kidney injury)/hypokalemia Conclusion/Plan: On admission, he was visibly dehydrated clinically. His BUN/creat have improved from admission, since iv fluids were started. His baseline creat is 1.1 (records were reviewed). This Angelo was likely from underlying volume depletion in addition to the rhabdo. IVF stopped 02/21. Since admission, 2.1>> 1.7>> 1.6>> 1.5>> 1.4>>1.3>> 1.4 for several days. This creatinine of 1.3-1.4 appears to be his new baseline. Plan: Avoid nephrotoxins Encourage fluid intake Follow BMP intermittently 7) DM type 2 (diabetes mellitus, type 2) Conclusion/Plan: He was on metformin at home. His A1c came back very good at 6.3. He is eating 100% of his meals. Metformin resumed February 22. Fasting glucose was 105 on February 24 it was as low as 87. Plan: Continue diabetic diet and Metformin Continue fingersticks only in the morning 8) Abrasions of multiple sites Conclusion/Plan: These were caused by his frequent falls. As per photos taken by nursing. These are all healing well. Plan: We will provide topical care where necessary 9) Fall at home Conclusion/Plan: Unclear why this gentleman kept on falling at home. His caregiver wonders if he just forgot to use his walker. They are not seizures. There was no syncope. There was no orthostasis when we checked for that earlier this admission. He may have been intermittently oversedated on his Buprenorphine patch since we strongly suspect he was getting intermittently, which has been stopped completely here. Here, he is watched carefully by nursing. He has had no falls, and he gets up OOB independently multiple times daily. He initially had orthostatic vital signs being checked when he got here. Those have been discontinued. We notice he has slight ataxia. And he is very impulsive. So he has poor insight and may be putting himself in situations where he falls. Social work is working closely with his caregiver, trying to formulate plans for this gentlemen. His daughter will be his DPOA. 10) Poor hygiene One of the examples Mer described to me was that she needs to wipe his gilliam after he eats because he is so messy. He is less able to feed himself over just this past year. Here, he continues to be quite a messy eater. Food on the table, food on the floor. But he is eating. His eyelashes had crusted debris. Unknown period of time that he was laying on the floor with his head under the bed, until Mer found him that way and needed to lift him. He completed 7 days of Garamycin. He also has been witnessed to try to pull his own feces out of his anus, because he thinks "people are inside of him". 11) Abnormal EKG Conclusion/Plan: This patient has an abnromal EKG showing early R/S transition which could signify cor pulmonale, si milar to 2 months ago. An Echo was done to check if he has cor pulmonale, and it showed: an essentially normal heart, with normal LV size and systolic function but grade 1 diastolic function present and normal RV size and function were seen. 12) Small rectal fissures Hydrocortisone mixture with lidocaine mixture ordered to apply every 3-4 hours as needed, that was started 02/19, but he is not really able to tell us if this helps or not. This patient was using his fingers to disimpact himself to get "those things" out of his rectum. Therefore, possibly the fissures were act ually abrasions from his fingernails. 13) Rhabdomyolysis, resolved. It was caused by trauma, his recurrent falls. The CPK on admission was [id number] by February 23. We stopped his IV fluids February 21 because he kept on pulling on the IV, and the IV pole would also get tangled. And it was becoming a fall risk. His creat did rise and he has a new baseline, mildly abnomal creatinine. Plan: continue to encourage liquid po intake. Qualifiers: Rhabdomyolysis type: traumatic 14) Buprenorphine use, stopped Conclusion/Plan: Discontinued According to history, this was ordered for chronic back pain. We now think this was over sedating him and adding to the falls. In addition, pharmacy learned that his last prescription was written by his PCP 1 year ago, it was ordered for 13 weeks, so he should have run out many months ago, however there are still several patches available in the box that Mer brought from home. We therefore suspect that he was not getting patches on a routine scheduled basis, probably just haphazardly. Plan: He has had no c/o back pain, and we did not reorder buprenorphine patches q week - Current Meds Current Meds: Current Medications Generic Name Dose Route Start Last Admin Trade Name Jyoti PRN Reason Stop Dose Admin Acetaminophen 650 mg 02/15/23 19:57 03/01/23 15:48 Acetaminophen 325 Mg Tablet PO 650 mg Q4HR PRN Administration Pain or Fever > 38C (100.4F) Aspirin 81 mg 02/18/23 09:00 03/04/23 09:08 Aspirin Ec 81 Mg Tablet PO 81 mg DAILY ANGELA Administration Docusate Sodium 250 - 500 mg 02/26/23 17:00 03/04/23 09:08 Docusate Sodium 250 Mg Capsule PO 250 mg BID ANGELA Administration Duloxetine HCl 30 mg 02/15/23 13:30 03/04/23 09:07 Duloxetine 30 Mg Capsule PO 30 mg DAILY ANGELA Administration Fluticasone Propionate 1 sprays 02/17/23 09:00 03/04/23 09:08 Fluticasone Nasal Vesper CRISTIAN 1 spray DAILY ANGELA Administration Haloperidol 2 mg 02/22/23 13:06 02/26/23 14:41 Haloperidol 5 Mg/Ml Vial IM 2 mg DAILY PRN Administration Agitation Ibuprofen 600 mg 02/15/23 19:57 03/03/23 20:57 Ibuprofen 600 Mg Tablet PO 600 mg Q6HR PRN Administration MINOR PAIN Lidocaine HCl 1 ml 02/23/23 13:54 02/26/23 13:59 Lidocaine Jelly 2% 6 Ml Jel.Pf.Shanda TOP 1 ml TID PRN Administration anal itching pain Lorazepam 0.5 mg 02/21/23 21:00 03/04/23 09:08 Lorazepam 0.5 Mg Tablet SL 0.5 mg BID ANGELA Administration Magnesium Oxide 400 mg 02/16/23 08:00 03/04/23 09:09 Magnesium Oxide 400 Mg Tablet PO 400 mg DAILYWM ANGELA Administration Metformin HCl 1,000 mg 02/22/23 17:00 03/04/23 17:10 Metformin 500 Mg Tablet PO 1,000 mg BIDWM ANGELA Administration Multivitamins/Minerals 1 tab 02/18/23 09:00 03/04/23 09:07 Multivitamin W/Minerals Tablet PO 1 tab DAILYWM ANGELA Administration Olanzapine 5 mg 02/23/23 21:00 03/04/23 09:08 Olanzapine Odt 5 Mg Tablet TL 5 mg BID ANGELA Administration Polyethylene Glycol 17 gm 02/17/23 18:00 03/04/23 09:07 Polyethylene Glycol 3350 17 Gm Packet PO 17 gm DAILY ANGELA Administration Senna 8.6 - 17.2 mg 02/26/23 17:00 03/04/23 09:07 Senna 8.6 Mg Tablet PO 8.6 mg BID ANGELA Administration - Lab Result Fish Bone Diagrams: 03/05/23 05:20 03/05/23 05:20 - Additional Planning My Orders: My Active Orders 03/05/23 05:00 BMP - BASIC METABOLIC PANEL [CHEM] DAILYLAB CBC - COMP BLD CT W/AUTO DIFF [HEME] DAILYLAB Subjective - Subjective Nursing Reports: Other (Is impulsive, stands and walks with his walker in oom and in hallways, multiple times a day. Is minimally communicative.) Objective Vital Signs: Vital Signs - 24 hr 03/03/23 03/04/23 03/04/23 23:40 08:07 15:34 Temperature 36.4 C L 36.4 C L 36.3 C L Heart Rate [ 71 90 77 Brachial] Respiratory 16 18 16 Rate Blood Pressure 130/68 [Left Brachial artery] Blood Pressure 126/88 H 142/83 H [Right Brachial artery] O2 Saturation 97 95 98 Oxygen O2 Source Room air I&O (Last 24 Hrs): Intake and Output Totals x24h 03/02/23 03/03/23 03/04/23 23:59 23:59 23:59 Intake Total 2260 1780 480 Balance 2260 1780 480 General: Alert, No acute distress HEENT: EOMI, Other (Male pattern baldness) Neck: Supple, No JVD Neuro: Alert, Non Focal Cardiovascular: Regular rate Respiratory: No respiratory distress Abdomen: Soft Extremities: No clubbing, No edema, No tenderness/swelling - Results Results: Laboratory Results WBC 8.3 x10^3/uL (4.8-10.8) 03/03/23 04:48 RBC 4.05 10^6/uL (4.70-6.10) L 03/03/23 04:48 Hgb 11.9 g/dL (14.0-18.0) L 03/03/23 04:48 Hct 36.6 % (42.0-52.0) L 03/03/23 04:48 MCV 90.4 fL (80.0-94.0) 03/03/23 04:48 MCH 29.4 pg (27.0-31.0) 03/03/23 04:48 MCHC 32.5 g/dL (32.0-36.0) 03/03/23 04:48 RDW 12.7 % (12.0-15.0) 03/03/23 04:48 Plt Count 379 10^3/uL (130-450) 03/03/23 04:48 MPV 9.2 fL (7.4-11.4) 03/03/23 04:48 Neut # (Auto) 4.9 10^3/uL (1.5-6.6) 03/03/23 04:48 Lymph # (Auto) 2.5 10^3/uL (1.5-3.5) 03/03/23 04:48 [place] # (Auto) 0.7 10^3/uL (0.0-1.0) 03/03/23 04:48 Eos # (Auto) 0.2 10^3/uL (0.0-0.7) 03/03/23 04:48 Baso # (Auto) 0.0 10^3/uL (0.0-0.1) 03/03/23 04:48 Absolute Nucleated RBC 0.00 x10^3/uL 03/03/23 04:48 Total Counted 100 02/14/23 03:15 Band Neuts % (Manual) 9 % (0-10) 02/14/23 03:15 Abnorm Lymph % (Manual) 0 % 02/14/23 03:15 Nucleated RBC % 0.0 /100WBC 03/03/23 04:48 Neutrophils # (Manual) 18.2 10^3/uL (1.5-6.6) H 02/14/23 03:15 Lymphocytes # (Manual) 1.0 10^3/uL (1.5-3.5) L 02/14/23 03:15 Monocytes # (Manual) 1.2 10^3/uL (0.0-1.0) H 02/14/23 03:15 Eosinophils # (Manual) 0.0 10^3/uL (0-0.7) 02/14/23 03:15 Basophils # (Manual) 0.0 10^3/uL (0-0.1) 02/14/23 03:15 Differential Comment MANUAL DIFFERENTIAL 02/14/23 03:15 Sodium 140 mmol/L (135-145) 03/03/23 04:48 Potassium 4.0 mmol/L (3.5-5.0) 03/03/23 04:48 Chloride 105 mmol/L (101-111) 03/03/23 04:48 Carbon Dioxide 27 mmol/L (21-32) 03/03/23 04:48 Anion Gap 8.0 (6-13) 03/03/23 04:48 BUN 28 mg/dL (6-20) H 03/03/23 04:48 Creatinine 1.3 mg/dL (0.6-1.2) H 03/03/23 04:48 Estimated GFR (MDRD) 57 (>89) L 03/03/23 04:48 Glucose 105 mg/dL (70-100) H 03/03/23 04:48 Estimat Average Glucose 134 mg/dL (70-100) H 02/15/23 05:20 Hemoglobin A1c % 6.3 % (4.27-6.07) H 02/15/23 05:20 Calcium 9.5 mg/dL (8.5-10.3) 03/03/23 04:48 Magnesium 1.5 mg/dL (1.7-2.8) L 02/17/23 05:35 Total Bilirubin 0.3 mg/dL (0.2-1.0) 03/03/23 04:48 AST 25 IU/L (10-42) 03/03/23 04:48 ALT 33 IU/L (10-60) 03/03/23 04:48 Alkaline Phosphatase 77 IU/L (42-121) 03/03/23 04:48 Total Creatine Kinase 440 IU/L (22-269) H 02/23/23 14:10 CK-MB (CK-2) 265.9 ng/mL (0.6-6.3) H 02/14/23 03:15 Total Protein 7.2 g/dL (6.7-8.2) 03/03/23 04:48 Albumin 4.0 g/dL (3.2-5.5) 03/03/23 04:48 Globulin 3.2 g/dL (2.1-4.2) 03/03/23 04:48 Albumin/Globulin Ratio 1.3 (1.0-2.2) 03/03/23 04:48 Lipase 34 U/L (22-51) 02/14/23 03:15 TSH 1.21 uIU/mL (0.34-5.60) 02/14/23 03:15 Urine Color YELLOW 02/18/23 15:10 Urine Clarity CLEAR (CLEAR) 02/18/23 15:10 Urine pH 5.5 PH (5.0-7.5) 02/18/23 15:10 Ur Specific [place] 1.020 (1.002-1.030) 02/18/23 15:10 Urine Protein NEGATIVE mg/dL (NEGATIVE) 02/18/23 15:10 Urine Glucose (UA) NEGATIVE mg/dL (NEGATIVE) 02/18/23 15:10 Urine Ketones NEGATIVE mg/dL (NEGATIVE) 02/18/23 15:10 Urine Occult Blood MODERATE (NEGATIVE) H 02/18/23 15:10 Urine Nitrite NEGATIVE (NEGATIVE) 02/18/23 15:10 Urine Bilirubin NEGATIVE (NEGATIVE) 02/18/23 15:10 Urine Urobilinogen 0.2 (NORMAL) E.U./dL (NORMAL) 02/18/23 15:10 Ur Leukocyte Esterase TRACE (NEGATIVE) H 02/18/23 15:10 Urine RBC 11-25 /HPF (0-5) H 02/18/23 15:10 Urine WBC 6-10 /HPF (0-3) H 02/18/23 15:10 Ur Squamous Epith Cells RARE Squamous (<= Few) 02/18/23 15:10 Urine Bacteria None Seen /HPF (None Seen) 02/18/23 15:10 Urine Sperm PRESENT 02/18/23 15:10 Ur Microscopic Review INDICATED 02/14/23 10:34 Urine Culture Comments INDICATED 02/18/23 15:10 Urine Opiates Screen NEGATIVE (NEGATIVE) 02/14/23 10:34 Ur Oxycodone Screen NEGATIVE (NEGATIVE) 02/14/23 10:34 Urine Methadone Screen NEGATIVE (NEGATIVE) 02/14/23 10:34 Ur Propoxyphene Screen NEGATIVE (NEGATIVE) 02/14/23 10:34 Ur Barbiturates Screen NEGATIVE (NEGATIVE) 02/14/23 10:34 Ur Tricyclics Screen NEGATIVE (NEGATIVE) 02/14/23 10:34 Ur Phencyclidine Scrn NEGATIVE (NEGATIVE) 02/14/23 10:34 Ur Amphetamine Screen NEGATIVE (NEGATIVE) 02/14/23 10:34 U Methamphetamines Scrn NEGATIVE (NEGATIVE) 02/14/23 10:34 U Benzodiazepines Scrn NEGATIVE (NEGATIVE) 02/14/23 10:34 Urine Cocaine Screen NEGATIVE (NEGATIVE) 02/14/23 10:34 U Cannabinoids Screen POSITIVE (NEGATIVE) H 02/14/23 10:34 Ethyl Alcohol < 5.0 mg/dL 02/14/23 03:15
[2023-03-05 05:44] LABS: BASOPHILS % (AUTO) 0.5 %; EOSINOPHILS # (AUTO) 0.3 10^3/uL (0.0-0.7); EOSINOPHILS % (AUTO) 3.4 %; HCT - HEMATOCRIT 38.7 % (42.0-52.0); HGB - HEMOGLOBIN 12.7 g/dL (14.0-18.0); LYMPHOCYTES # (AUTO) 2.8 10^3/uL (1.5-3.5); LYMPHOCYTES % (AUTO) 35.8 %; MEAN CORPUSCULAR HEMOGLOBIN 29.3 pg (27.0-31.0); MEAN CORPUSCULAR HGB CONC 32.8 g/dL (32.0-36.0); MEAN CORPUSCULAR VOLUME 89.4 fL (80.0-94.0); MEAN PLATELET VOLUME 9.3 fL (7.4-11.4); MONOCYTES # (AUTO) 0.6 10^3/uL (0.0-1.0); MONOCYTES % (AUTO) 7.2 %; NEUTROPHILS # (AUTO) 4.1 10^3/uL (1.5-6.6); NEUTROPHILS % (AUTO) 52.8 %; PLT - PLATELET COUNT 391 10^3/uL (130-450); RED BLOOD COUNT 4.33 10^6/uL (4.70-6.10); RED CELL DISTRIBUTION WIDTH 12.6 % (12.0-15.0); WHITE BLOOD COUNT 7.8 x10^3/uL (4.8-10.8)
[2023-03-05 05:54] LABS: CALCIUM 9.7 mg/dL (8.5-10.3); CREATININE 1.3 mg/dL (0.6-1.2); POTASSIUM 4.4 mmol/L (3.5-5.0)
[2023-03-05] MEDS: polyethylene glycoL 3350 17 GM PACKET PO SCH (08:34)
[2023-03-05] MEDS: LORazepam 0.5 MG TABLET SL SCH ×2 (08:35→21:06)
[2023-03-05] MEDS: DULoxetine 30 MG CAPSULE PO SCH (08:35)
[2023-03-05] MEDS: metFORMIN 500 MG TABLET PO SCH ×2 (08:35→16:38)
[2023-03-05] MEDS: MULTIVITAMIN W/MINERALS TABLET PO SCH (08:35)
[2023-03-05] MEDS: ASPIRIN EC 81 MG TABLET PO SCH (08:35)
[2023-03-05] MEDS: SENNA 8.6 MG TABLET PO SCH ×2 (08:35→21:05)
[2023-03-05] MEDS: FLUTICASONE NASAL SPRAY NAS SCH (08:36)
[2023-03-05] MEDS: DOCUSATE SODIUM 250 MG CAPSULE PO SCH ×2 (08:36→21:05)
[2023-03-05] MEDS: MAGNESIUM OXIDE 400 MG TABLET PO SCH (08:36)
[2023-03-05] MEDS: OLANZapine ODT 5 MG TABLET TL SCH ×2 (08:36→21:06)
--- NOTE | 2023-03-05 18:53 | PROVIDER PROGRESS NOTE ---
Subjective - Prog Note Date Prog Note Date: 03/05/23 Prog Note Time: 18:50 - Subjective Subjective: Have not seen the patient in a week. Reclining myself after being off service this week. He is awake, alert, oriented. Cooperative. Walking the hallways with his walker. Eating his food. He is currently without hallucinations he tells me. But nursing reports that he is still having occasional hallucinations. Current Medications - Current Medications Current Medications: Active Medications Acetaminophen (Acetaminophen 325 Mg Tablet) 650 mg PO Q4HR PRN PRN Reason: Pain or Fever > 38C (100.4F) Last Admin: 03/01/23 15:48 Dose: 650 mg Aspirin (Aspirin Ec 81 Mg Tablet) 81 mg PO DAILY FORMERLY [facility], [facility] Last Admin: 03/05/23 08:35 Dose: 81 mg Docusate Sodium (Docusate Sodium 250 Mg Capsule) 250 - 500 mg PO BID [facility], [facility] Last Admin: 03/05/23 08:36 Dose: 250 mg Duloxetine HCl (Duloxetine 30 Mg Capsule) 30 mg PO DAILY [facility], [facility] Last Admin: 03/05/23 08:35 Dose: 30 mg Fluticasone Propionate (Fluticasone Nasal [place]) 1 sprays CRISTIAN DAILY FORMER[facility], [facility] Last Admin: 03/05/23 08:36 Dose: 1 spray Haloperidol (Haloperidol 5 Mg/Ml Vial) 2 mg IM DAILY PRN PRN Reason: Agitation Last Admin: 02/26/23 14:41 Dose: 2 mg Hydrocortisone (Hydrocortisone 1% Cream 28 Gm Tube) 1 applic TOP TID PRN PRN Reason: ITCHING Ibuprofen (Ibuprofen 600 Mg Tablet) 600 mg PO Q6HR PRN PRN Reason: MINOR PAIN Last Admin: 03/03/23 20:57 Dose: 600 mg Lidocaine HCl (Lidocaine Jelly 2% 6 Ml Jel.Pf.Shanda) 1 ml TOP TID PRN PRN Reason: anal itching pain Last Admin: 02/26/23 13:59 Dose: 1 ml Lorazepam (Lorazepam 0.5 Mg Tablet) 0.5 mg SL BID [facility], [facility] Last Admin: 03/05/23 08:35 Dose: 0.5 mg Magnesium Oxide (Magnesium Oxide 400 Mg Tablet) 400 mg PO DAILYWM FOR[facility], [facility] Last Admin: 03/05/23 08:36 Dose: 400 mg Metformin HCl (Metformin 500 Mg Tablet) 1,000 mg PO BIDWM [facility], [facility] Last Admin: 03/05/23 16:38 Dose: 1,000 mg Multivitamins/Minerals (Multivitamin W/Minerals Tablet) 1 tab PO DAILYWM [facility], [facility] Last Admin: 03/05/23 08:35 Dose: 1 tab Olanzapine (Olanzapine Odt 5 Mg Tablet) 5 mg TL BID [facility], [facility] Last Admin: 03/05/23 08:36 Dose: 5 mg Ondansetron HCl (Ondansetron 4 Mg/2 Ml Vial) 4 mg IVP Q6HR PRN PRN Reason: Nausea / Vomiting Polyethylene Glycol (Polyethylene Glycol 3350 17 Gm Packet) 17 gm PO DAILY FOR[facility], [facility] Last Admin: 03/05/23 08:34 Dose: 17 gm Senna (Senna 8.6 Mg Tablet) 8.6 - 17.2 mg PO BID [facility], [facility] Last Admin: 03/05/23 08:35 Dose: 8.6 mg metFORMIN [Glucophage] 1,000 mg PO BIDWM 08/29/20 Aspirin [Aspirin EC] 81 mg PO DAILY 12/20/22 Atorvastatin Calcium [Lipitor] 80 mg PO HS 12/20/22 DULoxetine [Cymbalta] 60 mg PO DAILY 12/20/22 Fluticasone [Flonase] 1 sprays CRISTIAN DAILY 12/20/22 Gabapentin [Neurontin] 600 mg PO TID 12/20/22 risperiDONE [Risperdal] 3 mg PO BID 12/20/22 Buprenorphine 1 each TD Q7D PRN 12/21/22 Objective - Vital Signs/Intake & Output Reviewed Vital Signs: Yes Vital Signs: Vital Signs x48h Temp Pulse Resp BP Pulse Ox 03/05/23 16:08 36.7 C 84 20 136/85 H 96 Intake & Output: Intake & Output 03/02/23 03/03/23 03/04/23 03/05/23 23:59 23:59 23:59 23:59 Intake Total 2260 1780 870 910 Balance 2260 1780 870 910 - Objective General Appearance: positive: No acute distress, Alert, Other (Appears comfortable whether he is sitting in bed, sitting in his chair, or walking the hallways with his walker.) Eyes Bilateral: positive: PERRL, EOMI ENT: positive: Pharynx nml. negative: Pharyngeal erythema Neck: positive: No JVD. negative: Stiff neck Respiratory: positive: No respiratory distress. negative: Wheezes, Rales, Rhonchi Cardiovascular: positive: Regular rate & rhythm Abdomen: positive: Non-tender, No organomegaly, Nml bowel sounds, No distention Skin: positive: Color nml, No rash, Warm, Dry Extremities: positive: Full ROM, No pedal edema Neurologic/Psychiatric: positive: Oriented x3, CN's nml (2-12), Motor nml - Lab Results Fish Bones: 03/05/23 05:20 03/05/23 05:20 Other Labs: Lab Results x24hrs 03/05/23 03/05/23 03/05/23 Range/Units 07:37 05:20 05:20 WBC 7.8 (4.8-10.8) x10^3/uL RBC 4.33 L (4.70-6.10) 10^6/uL Hgb 12.7 L (14.0-18.0) g/dL Hct 38.7 L (42.0-52.0) % MCV 89.4 (80.0-94.0) fL MCH 29.3 (27.0-31.0) pg MCHC 32.8 (32.0-36.0) g/dL RDW 12.6 (12.0-15.0) % Plt Count 391 (130-450) 10^3/uL MPV 9.3 (7.4-11.4) fL Neut # (Auto) 4.1 (1.5-6.6) 10^3/uL Lymph # (Auto) 2.8 (1.5-3.5) 10^3/uL Rhea # (Auto) 0.6 (0.0-1.0) 10^3/uL Eos # (Auto) 0.3 (0.0-0.7) 10^3/uL Baso # (Auto) 0.0 (0.0-0.1) 10^3/uL Absolute Nucleated RBC 0.00 x10^3/uL Nucleated RBC % 0.0 /100WBC Sodium 139 (135-145) mmol/L Potassium 4.4 (3.5-5.0) mmol/L Chloride 102 (101-111) mmol/L Carbon Dioxide 26 (21-32) mmol/L Anion Gap 11.0 (6-13) BUN 32 H (6-20) mg/dL Creatinine 1.3 H (0.6-1.2) mg/dL Estimated GFR (MDRD) 57 L (>89) Glucose 111 H (70-100) mg/dL POC Whole Bld Glucose 108 H (70 - 100) mg/dL Calcium 9.7 (8.5-10.3) mg/dL 03/04/23 03/03/23 03/02/23 Range/Units 07:31 07:41 07:18 WBC (4.8-10.8) x10^3/uL RBC (4.70-6.10) 10^6/uL Hgb (14.0-18.0) g/dL Hct (42.0-52.0) % MCV (80.0-94.0) fL MCH (27.0-31.0) pg MCHC (32.0-36.0) g/dL RDW (12.0-15.0) % Plt Count (130-450) 10^3/uL MPV (7.4-11.4) fL Neut # (Auto) (1.5-6.6) 10^3/uL Lymph # (Auto) (1.5-3.5) 10^3/uL Rhea # (Auto) (0.0-1.0) 10^3/uL Eos # (Auto) (0.0-0.7) 10^3/uL Baso # (Auto) (0.0-0.1) 10^3/uL Absolute Nucleated RBC x10^3/uL Nucleated RBC % /100WBC Sodium (135-145) mmol/L Potassium (3.5-5.0) mmol/L Chloride (101-111) mmol/L Carbon Dioxide (21-32) mmol/L Anion Gap (6-13) BUN (6-20) mg/dL Creatinine (0.6-1.2) mg/dL Estimated GFR (MDRD) (>89) Glucose (70-100) mg/dL POC Whole Bld Glucose 90 103 H 130 H (70 - 100) mg/dL Calcium (8.5-10.3) mg/dL 03/01/23 02/28/23 02/27/23 Range/Units 07:37 08:26 08:22 WBC (4.8-10.8) x10^3/uL RBC (4.70-6.10) 10^6/uL Hgb (14.0-18.0) g/dL Hct (42.0-52.0) % MCV (80.0-94.0) fL MCH (27.0-31.0) pg MCHC (32.0-36.0) g/dL RDW (12.0-15.0) % Plt Count (130-450) 10^3/uL MPV (7.4-11.4) fL Neut # (Auto) (1.5-6.6) 10^3/uL Lymph # (Auto) (1.5-3.5) 10^3/uL Rhea # (Auto) (0.0-1.0) 10^3/uL Eos # (Auto) (0.0-0.7) 10^3/uL Baso # (Auto) (0.0-0.1) 10^3/uL Absolute Nucleated RBC x10^3/uL Nucleated RBC % /100WBC Sodium (135-145) mmol/L Potassium (3.5-5.0) mmol/L Chloride (101-111) mmol/L Carbon Dioxide (21-32) mmol/L Anion Gap (6-13) BUN (6-20) mg/dL Creatinine (0.6-1.2) mg/dL Estimated GFR (MDRD) (>89) Glucose (70-100) mg/dL POC Whole Bld Glucose 118 H 97 94 (70 - 100) mg/dL Calcium (8.5-10.3) mg/dL 02/26/23 02/25/23 02/25/23 Range/Units 09:13 16:56 11:32 WBC (4.8-10.8) x10^3/uL RBC (4.70-6.10) 10^6/uL Hgb (14.0-18.0) g/dL Hct (42.0-52.0) % MCV (80.0-94.0) fL MCH (27.0-31.0) pg MCHC (32.0-36.0) g/dL RDW (12.0-15.0) % Plt Count (130-450) 10^3/uL MPV (7.4-11.4) fL Neut # (Auto) (1.5-6.6) 10^3/uL Lymph # (Auto) (1.5-3.5) 10^3/uL Rhea # (Auto) (0.0-1.0) 10^3/uL Eos # (Auto) (0.0-0.7) 10^3/uL Baso # (Auto) (0.0-0.1) 10^3/uL Absolute Nucleated RBC x10^3/uL Nucleated RBC % /100WBC Sodium (135-145) mmol/L Potassium (3.5-5.0) mmol/L Chloride (101-111) mmol/L Carbon Dioxide (21-32) mmol/L Anion Gap (6-13) BUN (6-20) mg/dL Creatinine (0.6-1.2) mg/dL Estimated GFR (MDRD) (>89) Glucose (70-100) mg/dL POC Whole Bld Glucose 95 89 97 (70 - 100) mg/dL Calcium (8.5-10.3) mg/dL 02/25/23 02/24/23 02/23/23 Range/Units 07:26 07:55 08:06 WBC (4.8-10.8) x10^3/uL RBC (4.70-6.10) 10^6/uL Hgb (14.0-18.0) g/dL Hct (42.0-52.0) % MCV (80.0-94.0) fL MCH (27.0-31.0) pg MCHC (32.0-36.0) g/dL RDW (12.0-15.0) % Plt Count (130-450) 10^3/uL MPV (7.4-11.4) fL Neut # (Auto) (1.5-6.6) 10^3/uL Lymph # (Auto) (1.5-3.5) 10^3/uL Rhea # (Auto) (0.0-1.0) 10^3/uL Eos # (Auto) (0.0-0.7) 10^3/uL Baso # (Auto) (0.0-0.1) 10^3/uL Absolute Nucleated RBC x10^3/uL Nucleated RBC % /100WBC Sodium (135-145) mmol/L Potassium (3.5-5.0) mmol/L Chloride (101-111) mmol/L Carbon Dioxide (21-32) mmol/L Anion Gap (6-13) BUN (6-20) mg/dL Creatinine (0.6-1.2) mg/dL Estimated GFR (MDRD) (>89) Glucose (70-100) mg/dL POC Whole Bld Glucose 87 105 H 95 (70 - 100) mg/dL Calcium (8.5-10.3) mg/dL 02/22/23 02/22/23 02/21/23 Range/Units 11:14 07:24 20:27 WBC (4.8-10.8) x10^3/uL RBC (4.70-6.10) 10^6/uL Hgb (14.0-18.0) g/dL Hct (42.0-52.0) % MCV (80.0-94.0) fL MCH (27.0-31.0) pg MCHC (32.0-36.0) g/dL RDW (12.0-15.0) % Plt Count (130-450) 10^3/uL MPV (7.4-11.4) fL Neut # (Auto) (1.5-6.6) 10^3/uL Lymph # (Auto) (1.5-3.5) 10^3/uL Rhea # (Auto) (0.0-1.0) 10^3/uL Eos # (Auto) (0.0-0.7) 10^3/uL Baso # (Auto) (0.0-0.1) 10^3/uL Absolute Nucleated RBC x10^3/uL Nucleated RBC % /100WBC Sodium (135-145) mmol/L Potassium (3.5-5.0) mmol/L Chloride (101-111) mmol/L Carbon Dioxide (21-32) mmol/L Anion Gap (6-13) BUN (6-20) mg/dL Creatinine (0.6-1.2) mg/dL Estimated GFR (MDRD) (>89) Glucose (70-100) mg/dL POC Whole Bld Glucose 138 H 88 160 H (70 - 100) mg/dL Calcium (8.5-10.3) mg/dL 02/21/23 02/21/23 02/21/23 Range/Units 16:16 11:17 07:38 WBC (4.8-10.8) x10^3/uL RBC (4.70-6.10) 10^6/uL Hgb (14.0-18.0) g/dL Hct (42.0-52.0) % MCV (80.0-94.0) fL MCH (27.0-31.0) pg MCHC (32.0-36.0) g/dL RDW (12.0-15.0) % Plt Count (130-450) 10^3/uL MPV (7.4-11.4) fL Neut # (Auto) (1.5-6.6) 10^3/uL Lymph # (Auto) (1.5-3.5) 10^3/uL Rhea # (Auto) (0.0-1.0) 10^3/uL Eos # (Auto) (0.0-0.7) 10^3/uL Baso # (Auto) (0.0-0.1) 10^3/uL Absolute Nucleated RBC x10^3/uL Nucleated RBC % /100WBC Sodium (135-145) mmol/L Potassium (3.5-5.0) mmol/L Chloride (101-111) mmol/L Carbon Dioxide (21-32) mmol/L Anion Gap (6-13) BUN (6-20) mg/dL Creatinine (0.6-1.2) mg/dL Estimated GFR (MDRD) (>89) Glucose (70-100) mg/dL POC Whole Bld Glucose 103 H 152 H 127 H (70 - 100) mg/dL Calcium (8.5-10.3) mg/dL 02/20/23 02/20/23 02/20/23 Range/Units 21:19 16:56 11:39 WBC (4.8-10.8) x10^3/uL RBC (4.70-6.10) 10^6/uL Hgb (14.0-18.0) g/dL Hct (42.0-52.0) % MCV (80.0-94.0) fL MCH (27.0-31.0) pg MCHC (32.0-36.0) g/dL RDW (12.0-15.0) % Plt Count (130-450) 10^3/uL MPV (7.4-11.4) fL Neut # (Auto) (1.5-6.6) 10^3/uL Lymph # (Auto) (1.5-3.5) 10^3/uL Rhea # (Auto) (0.0-1.0) 10^3/uL Eos # (Auto) (0.0-0.7) 10^3/uL Baso # (Auto) (0.0-0.1) 10^3/uL Absolute Nucleated RBC x10^3/uL Nucleated RBC % /100WBC Sodium (135-145) mmol/L Potassium (3.5-5.0) mmol/L Chloride (101-111) mmol/L Carbon Dioxide (21-32) mmol/L Anion Gap (6-13) BUN (6-20) mg/dL Creatinine (0.6-1.2) mg/dL Estimated GFR (MDRD) (>89) Glucose (70-100) mg/dL POC Whole Bld Glucose 166 H 96 210 H (70 - 100) mg/dL Calcium (8.5-10.3) mg/dL 02/20/23 02/19/23 02/19/23 Range/Units 07:34 20:45 16:53 WBC (4.8-10.8) x10^3/uL RBC (4.70-6.10) 10^6/uL Hgb (14.0-18.0) g/dL Hct (42.0-52.0) % MCV (80.0-94.0) fL MCH (27.0-31.0) pg MCHC (32.0-36.0) g/dL RDW (12.0-15.0) % Plt Count (130-450) 10^3/uL MPV (7.4-11.4) fL Neut # (Auto) (1.5-6.6) 10^3/uL Lymph # (Auto) (1.5-3.5) 10^3/uL Rhea # (Auto) (0.0-1.0) 10^3/uL Eos # (Auto) (0.0-0.7) 10^3/uL Baso # (Auto) (0.0-0.1) 10^3/uL Absolute Nucleated RBC x10^3/uL Nucleated RBC % /100WBC Sodium (135-145) mmol/L Potassium (3.5-5.0) mmol/L Chloride (101-111) mmol/L Carbon Dioxide (21-32) mmol/L Anion Gap (6-13) BUN (6-20) mg/dL Creatinine (0.6-1.2) mg/dL Estimated GFR (MDRD) (>89) Glucose (70-100) mg/dL POC Whole Bld Glucose 105 H 106 H 103 H (70 - 100) mg/dL Calcium (8.5-10.3) mg/dL 02/19/23 02/19/23 02/18/23 Range/Units 11:21 07:25 20:40 WBC (4.8-10.8) x10^3/uL RBC (4.70-6.10) 10^6/uL Hgb (14.0-18.0) g/dL Hct (42.0-52.0) % MCV (80.0-94.0) fL MCH (27.0-31.0) pg MCHC (32.0-36.0) g/dL RDW (12.0-15.0) % Plt Count (130-450) 10^3/uL MPV (7.4-11.4) fL Neut # (Auto) (1.5-6.6) 10^3/uL Lymph # (Auto) (1.5-3.5) 10^3/uL Rhea # (Auto) (0.0-1.0) 10^3/uL Eos # (Auto) (0.0-0.7) 10^3/uL Baso # (Auto) (0.0-0.1) 10^3/uL Absolute Nucleated RBC x10^3/uL Nucleated RBC % /100WBC Sodium (135-145) mmol/L Potassium (3.5-5.0) mmol/L Chloride (101-111) mmol/L Carbon Dioxide (21-32) mmol/L Anion Gap (6-13) BUN (6-20) mg/dL Creatinine (0.6-1.2) mg/dL Estimated GFR (MDRD) (>89) Glucose (70-100) mg/dL POC Whole Bld Glucose 164 H 102 H 138 H (70 - 100) mg/dL Calcium (8.5-10.3) mg/dL 02/18/23 02/18/23 02/18/23 Range/Units 16:41 11:16 07:31 WBC (4.8-10.8) x10^3/uL RBC (4.70-6.10) 10^6/uL Hgb (14.0-18.0) g/dL Hct (42.0-52.0) % MCV (80.0-94.0) fL MCH (27.0-31.0) pg MCHC (32.0-36.0) g/dL RDW (12.0-15.0) % Plt Count (130-450) 10^3/uL MPV (7.4-11.4) fL Neut # (Auto) (1.5-6.6) 10^3/uL Lymph # (Auto) (1.5-3.5) 10^3/uL Rhea # (Auto) (0.0-1.0) 10^3/uL Eos # (Auto) (0.0-0.7) 10^3/uL Baso # (Auto) (0.0-0.1) 10^3/uL Absolute Nucleated RBC x10^3/uL Nucleated RBC % /100WBC Sodium (135-145) mmol/L Potassium (3.5-5.0) mmol/L Chloride (101-111) mmol/L Carbon Dioxide (21-32) mmol/L Anion Gap (6-13) BUN (6-20) mg/dL Creatinine (0.6-1.2) mg/dL Estimated GFR (MDRD) (>89) Glucose (70-100) mg/dL POC Whole Bld Glucose 116 H 117 H 85 (70 - 100) mg/dL Calcium (8.5-10.3) mg/dL 02/17/23 02/17/23 02/17/23 Range/Units 20:51 20:44 16:45 WBC (4.8-10.8) x10^3/uL RBC (4.70-6.10) 10^6/uL Hgb (14.0-18.0) g/dL Hct (42.0-52.0) % MCV (80.0-94.0) fL MCH (27.0-31.0) pg MCHC (32.0-36.0) g/dL RDW (12.0-15.0) % Plt Count (130-450) 10^3/uL MPV (7.4-11.4) fL Neut # (Auto) (1.5-6.6) 10^3/uL Lymph # (Auto) (1.5-3.5) 10^3/uL Rhea # (Auto) (0.0-1.0) 10^3/uL Eos # (Auto) (0.0-0.7) 10^3/uL Baso # (Auto) (0.0-0.1) 10^3/uL Absolute Nucleated RBC x10^3/uL Nucleated RBC % /100WBC Sodium (135-145) mmol/L Potassium (3.5-5.0) mmol/L Chloride (101-111) mmol/L Carbon Dioxide (21-32) mmol/L Anion Gap (6-13) BUN (6-20) mg/dL Creatinine (0.6-1.2) mg/dL Estimated GFR (MDRD) (>89) Glucose (70-100) mg/dL POC Whole Bld Glucose 108 H 103 H 137 H (70 - 100) mg/dL Calcium (8.5-10.3) mg/dL 02/17/23 02/17/23 02/16/23 Range/Units 11:32 07:33 20:20 WBC (4.8-10.8) x10^3/uL RBC (4.70-6.10) 10^6/uL Hgb (14.0-18.0) g/dL Hct (42.0-52.0) % MCV (80.0-94.0) fL MCH (27.0-31.0) pg MCHC (32.0-36.0) g/dL RDW (12.0-15.0) % Plt Count (130-450) 10^3/uL MPV (7.4-11.4) fL Neut # (Auto) (1.5-6.6) 10^3/uL Lymph # (Auto) (1.5-3.5) 10^3/uL Rhea # (Auto) (0.0-1.0) 10^3/uL Eos # (Auto) (0.0-0.7) 10^3/uL Baso # (Auto) (0.0-0.1) 10^3/uL Absolute Nucleated RBC x10^3/uL Nucleated RBC % /100WBC Sodium (135-145) mmol/L Potassium (3.5-5.0) mmol/L Chloride (101-111) mmol/L Carbon Dioxide (21-32) mmol/L Anion Gap (6-13) BUN (6-20) mg/dL Creatinine (0.6-1.2) mg/dL Estimated GFR (MDRD) (>89) Glucose (70-100) mg/dL POC Whole Bld Glucose 104 H 114 H 178 H (70 - 100) mg/dL Calcium (8.5-10.3) mg/dL 02/16/23 02/16/23 02/16/23 Range/Units 16:34 11:09 07:28 WBC (4.8-10.8) x10^3/uL RBC (4.70-6.10) 10^6/uL Hgb (14.0-18.0) g/dL Hct (42.0-52.0) % MCV (80.0-94.0) fL MCH (27.0-31.0) pg MCHC (32.0-36.0) g/dL RDW (12.0-15.0) % Plt Count (130-450) 10^3/uL MPV (7.4-11.4) fL Neut # (Auto) (1.5-6.6) 10^3/uL Lymph # (Auto) (1.5-3.5) 10^3/uL Rhea # (Auto) (0.0-1.0) 10^3/uL Eos # (Auto) (0.0-0.7) 10^3/uL Baso # (Auto) (0.0-0.1) 10^3/uL Absolute Nucleated RBC x10^3/uL Nucleated RBC % /100WBC Sodium (135-145) mmol/L Potassium (3.5-5.0) mmol/L Chloride (101-111) mmol/L Carbon Dioxide (21-32) mmol/L Anion Gap (6-13) BUN (6-20) mg/dL Creatinine (0.6-1.2) mg/dL Estimated GFR (MDRD) (>89) Glucose (70-100) mg/dL POC Whole Bld Glucose 144 H 271 H 121 H (70 - 100) mg/dL Calcium (8.5-10.3) mg/dL 02/15/23 02/15/23 02/15/23 Range/Units 20:28 16:51 11:26 WBC (4.8-10.8) x10^3/uL RBC (4.70-6.10) 10^6/uL Hgb (14.0-18.0) g/dL Hct (42.0-52.0) % MCV (80.0-94.0) fL MCH (27.0-31.0) pg MCHC (32.0-36.0) g/dL RDW (12.0-15.0) % Plt Count (130-450) 10^3/uL MPV (7.4-11.4) fL Neut # (Auto) (1.5-6.6) 10^3/uL Lymph # (Auto) (1.5-3.5) 10^3/uL Rhea # (Auto) (0.0-1.0) 10^3/uL Eos # (Auto) (0.0-0.7) 10^3/uL Baso # (Auto) (0.0-0.1) 10^3/uL Absolute Nucleated RBC x10^3/uL Nucleated RBC % /100WBC Sodium (135-145) mmol/L Potassium (3.5-5.0) mmol/L Chloride (101-111) mmol/L Carbon Dioxide (21-32) mmol/L Anion Gap (6-13) BUN (6-20) mg/dL Creatinine (0.6-1.2) mg/dL Estimated GFR (MDRD) (>89) Glucose (70-100) mg/dL POC Whole Bld Glucose 141 H 152 H 188 H (70 - 100) mg/dL Calcium (8.5-10.3) mg/dL 03/02/14/23 02/14/23 Range/Units 07:39 20:41 16:37 WBC (4.8-10.8) x10^3/uL RBC (4.70-6.10) 10^6/uL Hgb (14.0-18.0) g/dL Hct (42.0-52.0) % MCV (80.0-94.0) fL MCH (27.0-31.0) pg MCHC (32.0-36.0) g/dL RDW (12.0-15.0) % Plt Count (130-450) 10^3/uL MPV (7.4-11.4) fL Neut # (Auto) (1.5-6.6) 10^3/uL Lymph # (Auto) (1.5-3.5) 10^3/uL Rhea # (Auto) (0.0-1.0) 10^3/uL Eos # (Auto) (0.0-0.7) 10^3/uL Baso # (Auto) (0.0-0.1) 10^3/uL Absolute Nucleated RBC x10^3/uL Nucleated RBC % /100WBC Sodium (135-145) mmol/L Potassium (3.5-5.0) mmol/L Chloride (101-111) mmol/L Carbon Dioxide (21-32) mmol/L Anion Gap (6-13) BUN (6-20) mg/dL Creatinine (0.6-1.2) mg/dL Estimated GFR (MDRD) (>89) Glucose (70-100) mg/dL POC Whole Bld Glucose 161 H 132 H 132 H (70 - 100) mg/dL Calcium (8.5-10.3) mg/dL 02/14/23 Range/Units 12:16 WBC (4.8-10.8) x10^3/uL RBC (4.70-6.10) 10^6/uL Hgb (14.0-18.0) g/dL Hct (42.0-52.0) % MCV (80.0-94.0) fL MCH (27.0-31.0) pg MCHC (32.0-36.0) g/dL RDW (12.0-15.0) % Plt Count (130-450) 10^3/uL MPV (7.4-11.4) fL Neut # (Auto) (1.5-6.6) 10^3/uL Lymph # (Auto) (1.5-3.5) 10^3/uL Rhea # (Auto) (0.0-1.0) 10^3/uL Eos # (Auto) (0.0-0.7) 10^3/uL Baso # (Auto) (0.0-0.1) 10^3/uL Absolute Nucleated RBC x10^3/uL Nucleated RBC % /100WBC Sodium (135-145) mmol/L Potassium (3.5-5.0) mmol/L Chloride (101-111) mmol/L Carbon Dioxide (21-32) mmol/L Anion Gap (6-13) BUN (6-20) mg/dL Creatinine (0.6-1.2) mg/dL Estimated GFR (MDRD) (>89) Glucose (70-100) mg/dL POC Whole Bld Glucose 149 H (70 - 100) mg/dL Calcium (8.5-10.3) mg/dL Assessment/Plan - Problem List (1) Major depressive disorder, recurrent, severe with psychotic symptoms Impression: Since my last visit with him, there has been no new changes. All we are doing is awaiting placement. He is aware that his girlfriend cannot really care for him anymore. [place] his granddaughter. At admission, the patient just stared at hospitalist provider and other staff after being asked a question, and occasionally softly mumbled an answer, to what was asked 2 questions ago. He did not participate in any discussions. He did initially keep asking when Mer will visit and she visited him on 02/17. I spoke to his caregiver, Mer in the room at his bedside on 02/17 and updated her. I also spoke to Mer by phone on 02/16, who stated that he has worsened since 2010, he goes to a psychiatrist, has had his psychiatric meds adjusted and we do have the current proper medication list. Mer said that when he stares at you. "it is because the people that are in his body do not like what they are hearing". Therefore, when he is staring, his symptoms are not under control. Mer said this is his catatonia. Mer said that the patient can no longer make decisions for himself, and she has to remind him and cue him multiple times to do something. She is working with the pt's daughter Christina, and the patient's manager of case, trying to get him permanent placement. At home he takes Risperdal 3 mg p.o. twice daily. That was resumed. But then discontinued due to sedation. February 18 & February 19, he was unhappy and describing discomfort in his rectum and we saw some small linear rectal fissur es. We resumed his Risperdal 3 mg p.o. twice a day on 02/19 and his mentation and impulsivity did not improved. Hospitalist had initially ordered telepsych 02/19. On 02/[address] Lawrence, his psychiatrist, at [phone]. She said that she has been seeing him off and on for over a year, remotely, over Zoom. She last saw him on Zoom May 2022 right before she went on maternity leave, when he was functioning well. He had minimal psychosis. Mild depression. He was on sertra line. She came back from maternity leave and immediately noticed that he had a substantial change those 6 to 7 months later. He was hallucinating, falling, having episodes of defecation and urination all over the floor in his house. He felt that aliens, or Indians, or other individuals in his life were putting stuff up his rectum and he was desperate to pull it out but he just could not pull them out. At that time he was using excessive, excessive cannabis so they had him stop it for 2 months and he did not get any better. No clear reason of why he was falling. He then started sliding into being mute and unresponsive. 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 Seroquel had no effect, benzodiazepines for the mutism had no effect, sertraline had no effect. He then started getting extraparamidal signs on Risperdal 3 mg p.o. 3 times daily so she decreased it to 3 mg twice daily. In spite of all this, the muteness has become more and more predominant. Benzodiazepines usually help but Ativan did not help. So what our Hospitalist described to her is exactly what she was seeing. She was in the process of speaking to his family preservation caseworker. They were working on a more intensive environment and placement for him, because he was not going to be able to succeed living at home with his geriatric personal care aide/ex-girlfriend. The family preservation caseworker is named Mikaela Irving and her number is [phone], extension [phone]. Dr. Lawrence does feel that the patient would benefit from an inpatient stay. But his caregiver says that did not work a year ago. He was only okay for a couple of days and then he started regressing again. However Dr. Lawrence feels that stabilization of his mood, and his psychosis would be beneficial before he is placed in any permane nt residential situation. On February 21, we gave him Zyprexa as he was increasingly spiraling with his agitation of going to the bathroom, getting out of bed with the IV pole in place. It seems to have helpe, he was more aware of his environment, was not agitated, and actually was speaking full sentences. Since 02/23, he has been remarkably better in comparison to the catatonia from before. He is getting out of bed on his own. On his own, he will grab the walker to go walk down the hallway. Speaking to me, speaking to the nurses. Asking when he will go home. He continues to be mobile, but needs supervision, a WHIPPER walks the hallways with him. He is very impulsive. Needs repetitive prompts to keep him focused. PT has seen him again. They still feel he needs 24/ supervision. He has been on Cymbalta since February 15. That was his home medication continued. He has been on Zyprexa ODT since February 23. He is also on Ativan sublingual 0.5 mg twice a day. We did order Haldol 2 mg prn (mostly to be used in the middle of the night) if needed for agitation. Plan: Continue his Cymbalta, Zyprexa, Ativan. It seems to be the combination that is working for him. When he gets out of the hospital he should follow-up with his psychiatrist, Dr. Lawrecne. At this point he is medically stable. Social work is working on a plan for discharge. We do not think he can go home to his caregiver/ex-girlfriend because she states that she cannot take care of him 17/06. Prior to this admission, his family preservation caseworker with his psychiatrist were working on permanent placement in an inpatient psychiatric skilled nursing. I do not know if they will go back to that plan, or if he will be placed permanently, but he still cannot be left alone. 2) Catatonia He was almost mute and exhibited catatonia This has resolved as described in #1, on the meds described in #1 3) Schizophrenia As per Hx. 4) Left arm swelling Improving The appearance is that of dependent edema, perhaps he laid on that arm when he slept. Ultrasound duplex Doppler was done on February 18 to make sure he did not have a DVT. That study was negative. He continues to have left arm edema and left hand edema. But there is no redness, no heat. He can flex and extend at the elbow and at the wrist. Fingers looked like sausages. Skin is pink. Good capillary refill. Temperature of the arm and the hand is normal. 5) Toe infection Improving No fever. He really did not have any systemic complaints of infection. He did not even tell me it hurts. Plain film foot x-ray of the third toe on the right foot did not have any significant abnormalities. No fractures or dislocations. No suspicious bony lesions. No suspicious soft tissue calcifications or masses. Ever since Dr. Nunez lanced it, and it drained yellow purulent materia l, the soft tissue swelling has gone down and the redness and edema have improved. Plan: Continue Keflex p.o. for a total of 7 days. That would be February 28. 6) CKD (acute kidney injury)/hypokalemia Conclusion/Plan: On admission, he was visibly dehydrated clinically. His BUN/creat have improved from admission, since iv fluids were started. His baseline creat is 1.1 (records were reviewed). This Angelo was likely from underlying volume depletion in addition to the rhabdo. IVF stopped 02/21. Since admission, 2.1>> 1.7>> 1.6>> 1.5>> 1.4>>1.3>> 1.4 for several days. This creatinine of 1.3-1.4 appears to be his new baseline. Plan: Avoid nephrotoxins Encourage fluid intake Follow BMP intermittently 7) DM type 2 (diabetes mellitus, type 2) Conclusion/Plan: He was on metformin at home. His A1c came back very good at 6.3. He is eating 100% of his meals. Metformin resumed February 22. Fasting glucose was 105 on February 24 it was as low as 87. Plan: Continue diabetic diet and Metformin Continue fingersticks only in the morning 8) Abrasions of multiple sites Conclusion/Plan: These were caused by his frequent falls. As per photos taken by nursing. These are all healing well. Plan: We will provide topical care where necessary 9) Fall at home Conclusion/Plan: Unclear why this gentleman kept on falling at home. His caregiver wonders if he just forgot to use his walker. They are not seizures. There was no syncope. There was no orthostasis when we checked for that earlier this admission. He may have been intermittently oversedated on his Buprenorphine patch since we strongly suspect he was getting intermittently, which has been stopped completely here. Here, he is watched carefully by nursing. He has had no falls, and he gets up OOB independently multiple times daily. He initially had orthostatic vital signs being checked when he got here. Those have been discontinued. We notice he has slight ataxia. And he is very impulsive. So he has poor insight and may be putting himself in situations where he falls. Social work is working closely with his caregiver, trying to formulate plans for this gentlemen. His daughter will be his DPOA. 10) Poor hygiene One of the examples Mer described to me was that she needs to wipe his gilliam after he eats because he is so messy. He is less able to feed himself over just this past year. Here, he continues to be quite a messy eater. Food on the table, food on the floor. But he is eating. His eyelashes had crusted debris. Unknown period of time that he was laying on the floor with his head under the bed, until Mer found him that way and needed to lift him. He completed 7 days of Garamycin. He also has been witnessed to try to pull his own feces out of his anus, because he thinks "people are inside of him". 11) Abnormal EKG Conclusion/Plan: This patient has an abnromal EKG showing early R/S transition which could signify cor pulmonale, si milar to 2 months ago. An Echo was done to check if he has cor pulmonale, and it showed: an essentially normal heart, with normal LV size and systolic function but grade 1 diastolic function present and normal RV size and function were seen. 12) Small rectal fissures Hydrocortisone mixture with lidocaine mixture ordered to apply every 3-4 hours as needed, that was started 02/19, but he is not really able to tell us if this helps or not. This patient was using his fingers to disimpact himself to get "those things" out of his rectum. Therefore, possibly the fissures were actually abrasions from his fingernails. 13) Rhabdomyolysis, resolved. It was caused by trauma, his recurrent falls. The CPK on admission was [id number] by February 23. We stopped his IV fluids February 21 because he kept on pulling on the IV, and the IV pole would also get tangled. And it was becoming a fall risk. His creat did rise and he has a new baseline, mildly abnomal creatinine. Plan: continue to encourage liquid po intake. Qualifiers: Rhabdomyolysis type: traumatic 14) Buprenorphine use, stopped Conclusion/Plan: Discontinued According to history, this was ordered for chronic back pain. We now think this was over sedating him and adding to the falls. In addition, pharmacy learned that his last prescription was written by his PCP 1 year ago, it was ordered for 13 weeks, so he should have run out many months ago, however there are still several patches available in the box that Mer brought from home. We therefore suspect that he was not getting patches on a routine scheduled basis, probably just haphazardly. Plan: He has had no c/o back pain, and we did not reorder buprenorphine patches q week
[2023-03-06] MEDS: polyethylene glycoL 3350 17 GM PACKET PO SCH (09:40)
[2023-03-06] MEDS: SENNA 8.6 MG TABLET PO SCH ×2 (09:41→21:46)
[2023-03-06] MEDS: DOCUSATE SODIUM 250 MG CAPSULE PO SCH ×2 (09:41→21:47)
[2023-03-06] MEDS: LORazepam 0.5 MG TABLET SL SCH ×2 (09:41→21:46)
[2023-03-06] MEDS: metFORMIN 500 MG TABLET PO SCH ×2 (09:41→17:07)
[2023-03-06] MEDS: DULoxetine 30 MG CAPSULE PO SCH (09:41)
[2023-03-06] MEDS: ASPIRIN EC 81 MG TABLET PO SCH (09:41)
[2023-03-06] MEDS: MAGNESIUM OXIDE 400 MG TABLET PO SCH (09:42)
[2023-03-06] MEDS: FLUTICASONE NASAL SPRAY NAS SCH (09:42)
[2023-03-06] MEDS: OLANZapine ODT 5 MG TABLET TL SCH ×2 (09:42→21:47)
[2023-03-06] MEDS: MULTIVITAMIN W/MINERALS TABLET PO SCH (09:42)
--- NOTE | 2023-03-06 20:14 | PROVIDER PROGRESS NOTE ---
Progress Note March 06, 2023 8:06 PM Mr. Groves has been ambulating. Just waiting for placement. Eating 100% of his food. No behavioral issues. Compliant with his medications. Active Medications Acetaminophen (Acetaminophen 325 Mg Tablet) 650 mg PO Q4HR PRN PRN Reason: Pain or Fever > 38C (100.4F) Last Admin: 03/01/23 15:48 Dose: 650 mg Aspirin (Aspirin Ec 81 Mg Tablet) 81 mg PO DAILY [facility] Last Admin: 03/06/23 09:41 Dose: 81 mg Docusate Sodium (Docusate Sodium 250 Mg Capsule) 250 - 500 mg PO BID [facility] Last Admin: 03/06/23 09:41 Dose: 250 mg Duloxetine HCl (Duloxetine 30 Mg Capsule) 30 mg PO DAILY [facility] Last Admin: 03/06/23 09:41 Dose: 30 mg Fluticasone Propionate (Fluticasone Nasal [place]) 1 sprays CRISTIAN DAILY [facility] Last Admin: 03/06/23 09:42 Dose: 1 spray Haloperidol (Haloperidol 5 Mg/Ml Vial) 2 mg IM DAILY PRN PRN Reason: Agitation Last Admin: 02/26/23 14:41 Dose: 2 mg Hydrocortisone (Hydrocortisone 1% Cream 28 Gm Tube) 1 applic TOP TID PRN PRN Reason: ITCHING Ibuprofen (Ibuprofen 600 Mg Tablet) 600 mg PO Q6HR PRN PRN Reason: MINOR PAIN Last Admin: 03/03/23 20:57 Dose: 600 mg Lidocaine HCl (Lidocaine Jelly 2% 6 Ml Jel.Pf.Shanda) 1 ml TOP TID PRN PRN Reason: anal itching pain Last Admin: 02/26/23 13:59 Dose: 1 ml Lorazepam (Lorazepam 0.5 Mg Tablet) 0.5 mg SL BID [facility] Last Admin: 03/06/23 09:41 Dose: 0.5 mg Magnesium Oxide (Magnesium Oxide 400 Mg Tablet) 400 mg PO DAILYWM [facility] Last Admin: 03/06/23 09:42 Dose: 400 mg Metformin HCl (Metformin 500 Mg Tablet) 1,000 mg PO BIDWM [facility] Last Admin: 03/06/23 17:07 Dose: 1,000 mg Multivitamins/Minerals (Multivitamin W/Minerals Tablet) 1 tab PO DAILYWM [facility] Last Admin: 03/06/23 09:42 Dose: 1 tab Olanzapine (Olanzapine Odt 5 Mg Tablet) 5 mg TL BID [facility] Last Admin: 03/06/23 09:42 Dose: 5 mg Ondansetron HCl (Ondansetron 4 Mg/2 Ml Vial) 4 mg IVP Q6HR PRN PRN Reason: Nausea / Vomiting Polyethylene Glycol (Polyethylene Glycol 3350 17 Gm Packet) 17 gm PO DAILY [facility] Last Admin: 03/06/23 09:40 Dose: 17 gm Senna (Senna 8.6 Mg Tablet) 8.6 - 17.2 mg PO BID [facility] Last Admin: 03/06/23 09:41 Dose: 8.6 mg metFORMIN [Glucophage] 1,000 mg PO BIDWM 08/29/20 Aspirin [Aspirin EC] 81 mg PO DAILY 12/20/22 Atorvastatin Calcium [Lipitor] 80 mg PO HS 12/20/22 DULoxetine [Cymbalta] 60 mg PO DAILY 12/20/22 Fluticasone [Flonase] 1 sprays CRISTIAN DAILY 12/20/22 Gabapentin [Neurontin] 600 mg PO TID 12/20/22 risperiDONE [Risperdal] 3 mg PO BID 12/20/22 Buprenorphine 1 each TD Q7D PRN 12/21/22 Exam: Temperature 36.7, heart rate 70, blood pressure 126/84, respirations 12, 97% on room air. 5 foot 9 inches tall, 84.5 kg Lungs are clear. No increased respiratory effort with speaking or walking in the hallways Regular rate and rhythm Abdomen is soft, nontender, normal bowel sounds. Last bowel movement March 02. Extremities without edema. No ataxia. He has been compliant with using his walker. No labs since March 05. If he is going to be here long enough, next labs should probably be March 12. Assessment/plan 1. Major depressive disorder, recurrent, severe with psychotic symptoms The recently was admitted with multiple falls. Increasing psychosis. To the point he became catatonic. He has now been here 21 days. There has been remarkable and positive improvement. Most of the change came from resuming his Risperdal 3 mg twice daily, and adding a benzodiazepine for the catatonia. His psychiatrist let me know that they have been working on permanent placement for him. Its been slow going. He was living with his girlfriend/caregiver. Caregiver burden has been too difficult for her recently. We now have DPOA with his daughter. Daughter is amenable to having him placed. At this time we are awaiting for [facility] to negotiate a daily rate for his placement. 2. Catatonia has resolved. 3. Psychosis still present. He is still hallucinating at times. But much more controllable. 4. Left arm swelling. Duplex Doppler - February 18. 5. Right third toe infection. Resolved. Completed Keflex February 28. 6. Acute on chronic kidney disease. Resolved in the face of rhabdomyolysis and many falls. 1.3-1.4 is his new baseline. Patient has been at baseline since approximately February 19. He has no longer needed IV fluids. 7. Type 2 diabetes mellitus, controlled. A1c was 6.3%. He is eating 100% of his meals. Metformin resumed February 22. Glucose is controlled. 8. Abrasions of multiple sites due to frequent falls. Photographs taken by nursing. These have all healed. 9. Falls at home. Unclear why he kept on falling. He was not intoxicated. Not under the influence of any recreational substance. No seizures, no syncope. No orthostasis. He was intermittently oversedated on his buprenorphine patch when he got here. So we stopped that. Here he is walking with a walker and does so on a regular basis. He did have 1 fall in the hospital where he was leaning forward and he started going toward the floor and the nurse pushed him back. 10. Poor hygiene on admission. He is taking baths here on a regular basis. 11. Abnormal EKG. Echo was done to make sure he did not have cor pulmonale and echo was normal. 12. Small rectal fissures or abrasions. Part of his psychosis is that aliens are Indians are shoving things in his rectum. He would use his fingers to manually disimpact himself. He gave himself the cuts. He still says that those things that are tucked into his rectum and sometimes speak to him. But he is having less and less agitation with this. 13. Rhabdomyolysis has resolved. 14. Review paren Norethin was stopped. It was supposed to be for back pain. But we think it was over sedating him and leading him to have falls. His last prescription was written a year ago. He was ordered for 13 weeks. However there were still several patches available in a box that his caregiver brought from home. Here he has not had any severe back pain.
[2023-03-07] MEDS: metFORMIN 500 MG TABLET PO SCH ×2 (08:27→17:29)
[2023-03-07] MEDS: LORazepam 0.5 MG TABLET SL SCH ×2 (08:27→22:20)
[2023-03-07] MEDS: polyethylene glycoL 3350 17 GM PACKET PO SCH (08:27)
[2023-03-07] MEDS: SENNA 8.6 MG TABLET PO SCH ×2 (08:27→22:20)
[2023-03-07] MEDS: DOCUSATE SODIUM 250 MG CAPSULE PO SCH ×2 (08:27→22:20)
[2023-03-07] MEDS: OLANZapine ODT 5 MG TABLET TL SCH ×2 (08:27→22:20)
[2023-03-07] MEDS: MULTIVITAMIN W/MINERALS TABLET PO SCH (08:27)
[2023-03-07] MEDS: ASPIRIN EC 81 MG TABLET PO SCH (08:28)
[2023-03-07] MEDS: FLUTICASONE NASAL SPRAY NAS SCH (08:30)
[2023-03-07] MEDS: DULoxetine 30 MG CAPSULE PO SCH (08:32)
[2023-03-07] MEDS: MAGNESIUM OXIDE 400 MG TABLET PO SCH (08:32)
--- NOTE | 2023-03-07 16:29 | PROVIDER PROGRESS NOTE ---
Progress Note March 06, 2023 8:06 PM Mr. Groves has been ambulating. Just waiting for placement. Eating 100% of his food. No behavioral issues. Compliant with his medications. Active Medications Generic Name Dose Route Start Last Admin Trade Name Jyoti PRN Reason Stop Dose Admin Acetaminophen 650 mg 02/15/23 19:57 03/01/23 15:48 Acetaminophen 325 Mg Tablet PO 650 mg Q4HR PRN Administration Pain or Fever > 38C (100.4F) Aspirin 81 mg 02/18/23 09:00 03/07/23 08:28 Aspirin Ec 81 Mg Tablet PO 81 mg DAILY ANGELA Administration Docusate Sodium 250 - 500 mg 02/26/23 17:00 03/07/23 08:27 Docusate Sodium 250 Mg Capsule PO 250 mg BID ANGELA Administration Duloxetine HCl 30 mg 02/15/23 13:30 03/07/23 08:32 Duloxetine 30 Mg Capsule PO 30 mg DAILY ANGELA Administration Fluticasone Propionate 1 sprays 02/17/23 09:00 03/07/23 08:30 Fluticasone Nasal [place] CRISTIAN 1 spray DAILY ANGELA Administration Haloperidol 2 mg 02/22/23 13:06 02/26/23 14:41 Haloperidol 5 Mg/Ml Vial IM 2 mg DAILY PRN Administration Agitation Hydrocortisone 1 applic 02/27/23 12:07 Hydrocortisone 1% Cream 28 Gm Tube TOP TID PRN ITCHING Ibuprofen 600 mg 02/15/23 19:57 03/03/23 20:57 Ibuprofen 600 Mg Tablet PO 600 mg Q6HR PRN Administration MINOR PAIN Lidocaine HCl 1 ml 02/23/23 13:54 02/26/23 13:59 Lidocaine Jelly 2% 6 Ml Jel.Pf.Shanda TOP 1 ml TID PRN Administration anal itching pain Lorazepam 0.5 mg 02/21/23 21:00 03/07/23 08:27 Lorazepam 0.5 Mg Tablet SL 0.5 mg BID ANGELA Administration Magnesium Oxide 400 mg 02/16/23 08:00 03/07/23 08:32 Magnesium Oxide 400 Mg Tablet PO 400 mg DAILYWM ANGELA Administration Metformin HCl 1,000 mg 02/22/23 17:00 03/07/23 08:27 Metformin 500 Mg Tablet PO 1,000 mg BIDWM ANGELA Administration Multivitamins/Minerals 1 tab 02/18/23 09:00 04/13/23 08:27 Multivitamin W/Minerals Tablet PO 1 tab DAILYWM ANGELA Administration Olanzapine 5 mg 02/23/23 21:00 03/07/23 08:27 Olanzapine Odt 5 Mg Tablet TL 5 mg BID ANGELA Administration Ondansetron HCl 4 mg 02/14/23 11:26 Ondansetron 4 Mg/2 Ml Vial IVP Q6HR PRN Nausea / Vomiting Polyethylene Glycol 17 gm 02/17/23 18:00 03/07/23 08:27 Polyethylene Glycol 3350 17 Gm Packet PO 17 gm DAILY ANGELA Administration Senna 8.6 - 17.2 mg 02/26/23 17:00 03/07/23 08:27 Senna 8.6 Mg Tablet PO 8.6 mg BID ANGELA Administration Exam: Temperature 36.7, heart rate 70, blood pressure 126/84, respirations 12, 97% on room air. 5 foot 9 inches tall, 84.5 kg Lungs are clear. No increased respiratory effort with speaking or walking in the hallways Regular rate and rhythm Abdomen is soft, nontender, normal bowel sounds. Last bowel movement March 02. Extremities without edema. No ataxia. He has been compliant with using his walker. No labs since March 05. If he is going to be here long enough, next labs should probably be March 12. Assessment/plan 1. Major depressive disorder, recurrent, severe with psychotic symptoms The recently was admitted with multiple falls. Increasing psychosis. To the point he became catatonic. He has now been here 21 days. There has been remarkable and positive improvement. Most of the change came from resuming his Risperdal 3 mg twice daily, and adding a benzodiazepine for the catatonia. His psychiatrist let me know that they have been working on permanent placement for him. Its been slow going. He was living with his girlfriend/caregiver. Caregiver burden has been too difficult for her recently. We now have DPOA with his daughter. Daughter is amenable to having him placed. At this time we are awaiting for [facility] to negotiate a daily rate for his placement. 2. Catatonia has resolved. 3. Psychosis still present. He is still hallucinating at times. But much more controllable. 4. Left arm swelling. Duplex Doppler - February 18. 5. Right third toe infection. Resolved. Completed Keflex February 28. 6. Acute on chronic kidney disease. Resolved in the face of rhabdomyolysis and many falls. 1.3-1.4 is his new baseline. Patient has been at baseline since approximately February 19. He has no longer needed IV fluids. 7. Type 2 diabetes mellitus, controlled. A1c was 6.3%. He is eating 100% of his meals. Metformin resumed February 22. Glucose is controlled. 8. Abrasions of multiple sites due to frequent falls. Photographs taken by nursing. These have all healed. 9. Falls at home. Unclear why he kept on falling. He was not intoxicated. Not under the influence of any recreational substance. No seizures, no syncope. No orthost asis. He was intermittently oversedated on his buprenorphine patch when he got here. So we stopped that. Here he is walking with a walker and does so on a regular basis. He did have 1 fall in the hospital where he was leaning forward and he started going toward the floor and the nurse pushed him back. 10. Poor hygiene on admission. He is taking baths here on a regular basis. 11. Abnormal EKG. Echo was done to make sure he did not have cor pulmonale and echo was normal. 12. Small rectal fissures or abrasions. Part of his psychosis is that aliens are Indians are shoving things in his rectum. He would use his fingers to manually disimpact himself. He gave himself the cuts. He still says that those things that are tucked into his rectum and sometimes speak to him. But he is lind ving less and less agitation with this. 13. Rhabdomyolysis has resolved. 14. Review paren Norethin was stopped. It was supposed to be for back pain. But we think it was over sedating him and leading him to have falls. His last prescription was written a year ago. He was ordered for 13 weeks. However there were still several patches available in a box that his caregiver brought from home. Here he has not had any severe back pain.
[2023-03-08] MEDS: metFORMIN 500 MG TABLET PO SCH ×2 (08:33→16:36)
[2023-03-08] MEDS: polyethylene glycoL 3350 17 GM PACKET PO SCH (08:33)
[2023-03-08] MEDS: MAGNESIUM OXIDE 400 MG TABLET PO SCH (08:34)
[2023-03-08] MEDS: MULTIVITAMIN W/MINERALS TABLET PO SCH (08:34)
[2023-03-08] MEDS: SENNA 8.6 MG TABLET PO SCH ×2 (08:35→20:45)
[2023-03-08] MEDS: DOCUSATE SODIUM 250 MG CAPSULE PO SCH ×2 (08:35→20:45)
[2023-03-08] MEDS: DULoxetine 30 MG CAPSULE PO SCH (08:36)
[2023-03-08] MEDS: LORazepam 0.5 MG TABLET SL SCH ×2 (08:36→20:44)
[2023-03-08] MEDS: ASPIRIN EC 81 MG TABLET PO SCH (08:37)
[2023-03-08] MEDS: OLANZapine ODT 5 MG TABLET TL SCH ×2 (08:37→20:45)
[2023-03-08] MEDS: FLUTICASONE NASAL SPRAY NAS SCH (08:38)
[2023-03-09] MEDS: OLANZapine ODT 5 MG TABLET TL SCH ×2 (08:57→20:53)
[2023-03-09] MEDS: ASPIRIN EC 81 MG TABLET PO SCH (08:57)
[2023-03-09] MEDS: LORazepam 0.5 MG TABLET SL SCH ×2 (08:57→20:53)
[2023-03-09] MEDS: DULoxetine 30 MG CAPSULE PO SCH (08:57)
[2023-03-09] MEDS: DOCUSATE SODIUM 250 MG CAPSULE PO SCH ×2 (08:57→20:52)
[2023-03-09] MEDS: SENNA 8.6 MG TABLET PO SCH ×2 (08:57→20:52)
[2023-03-09] MEDS: metFORMIN 500 MG TABLET PO SCH ×2 (08:57→16:19)
[2023-03-09] MEDS: MAGNESIUM OXIDE 400 MG TABLET PO SCH (08:57)
[2023-03-09] MEDS: MULTIVITAMIN W/MINERALS TABLET PO SCH (08:57)
[2023-03-09] MEDS: polyethylene glycoL 3350 17 GM PACKET PO SCH ×2 (08:57→09:34)
[2023-03-09] MEDS: FLUTICASONE NASAL SPRAY NAS SCH (08:59)
--- NOTE | 2023-03-09 13:11 | PROVIDER PROGRESS NOTE ---
Progress Note Mr. Groves has been ambulating. Just waiting for placement. Eating 100% of his food. No behavioral issues. Compliant with his medications. Active Medications Generic Name Dose Route Start Last Admin Trade Name Jyoti PRN Reason Stop Dose Admin Acetaminophen 650 mg 02/15/23 19:57 03/01/23 15:48 Acetaminophen 325 Mg Tablet PO 650 mg Q4HR PRN Administration Pain or Fever > 38C (100.4F) Aspirin 81 mg 02/18/23 09:00 03/07/23 08:28 Aspirin Ec 81 Mg Tablet PO 81 mg DAILY ANGELA Administration Docusate Sodium 250 - 500 mg 02/26/23 17:00 03/07/23 08:27 Docusate Sodium 250 Mg Capsule PO 250 mg BID ANGELA Administration Duloxetine HCl 30 mg 02/15/23 13:30 03/07/23 08:32 Duloxetine 30 Mg Capsule PO 30 mg DAILY ANGELA Administration Fluticasone Propionate 1 sprays 02/17/23 09:00 03/07/23 08:30 Fluticasone Nasal [place] CRISTIAN 1 spray DAILY ANGELA Administration Haloperidol 2 mg 02/22/23 13:06 02/26/23 14:41 Haloperidol 5 Mg/Ml Vial IM 2 mg DAILY PRN Administration Agitation Hydrocortisone 1 applic 02/27/23 12:07 Hydrocortisone 1% Cream 28 Gm Tube TOP TID PRN ITCHING Ibuprofen 600 mg 02/15/23 19:57 03/03/23 20:57 Ibuprofen 600 Mg Tablet PO 600 mg Q6HR PRN Administration MINOR PAIN Lidocaine HCl 1 ml 02/23/23 13:54 02/26/23 13:59 Lidocaine Jelly 2% 6 Ml Jel.Pf.Shanda TOP 1 ml TID PRN Administration anal itching pain Lorazepam 0.5 mg 02/21/23 21:00 03/07/23 08:27 Lorazepam 0.5 Mg Tablet SL 0.5 mg BID ANGELA Administration Magnesium Oxide 400 mg 02/16/23 08:00 03/07/23 08:32 Magnesium Oxide 400 Mg Tablet PO 400 mg DAILYWM ANGELA Administration Metformin HCl 1,000 mg 02/22/23 17:00 03/07/23 08:27 Metformin 500 Mg Tablet PO 1,000 mg BIDWM ANGELA Administration Multivitamins/Minerals 1 tab 02/18/23 09:00 03/07/23 08:27 Multivitamin W/Minerals Tablet PO 1 tab DAILYWM ANGELA Administration Olanzapine 5 mg 02/23/23 21:00 03/07/23 08:27 Olanzapine Odt 5 Mg Tablet TL 5 mg BID ANGELA Administration Ondansetron HCl 4 mg 02/14/23 11:26 Ondansetron 4 Mg/2 Ml Vial IVP Q6HR PRN Nausea / Vomiting Polyethylene Glycol 17 gm 02/17/23 18:00 03/07/23 08:27 Polyethylene Glycol 3350 17 Gm Packet PO 17 gm DAILY ANGELA Administration Senna 8.6 - 17.2 mg 02/26/23 17:00 03/07/23 08:27 Senna 8.6 Mg Tablet PO 8.6 mg BID ANGELA Administration Exam: Temperature 36.7, heart rate 70, blood pressure 126/84, respirations 12, 97% on room air. 5 foot 9 inches tall, 84.5 kg Lungs are clear. No increased respiratory effort with speaking or walking in th e hallways Regular rate and rhythm Abdomen is soft, nontender, normal bowel sounds. Last bowel movement March 02. Extremities without edema. No ataxia. He has been compliant with using his walker. No labs since March 05. If he is going to be here long enough, next labs should probably be March 12. Assessment/plan 1. Major depressive disorder, recurrent, severe with psychotic symptoms The recently was admitted with multiple falls. Increasing psychosis. To the point he became catatonic. He has now been here 21 days. There has been remarkable and positive improvement. Most of the change came from resuming his Risperdal 3 mg twice daily, and adding a benzodiazepine for the catatonia. His psychiatrist let me know that they have been working on permanent placement for him. Its been slow going. He was living with his girlfriend/caregiver. Caregiver burden has been too difficult for her recently. We now have DPOA with his daughter. Daughter is amenable to having him placed. At this time we are awaiting for [facility] to negotiate a daily rate for his placement. 2. Catatonia has resolved. 3. Psychosis still present. He is still hallucinating at times. But much more controllable. 4. Left arm swelling. Duplex Doppler - February 18. 5. Right third toe infection. Resolved. Completed Keflex February 28. 6. Acute on chronic kidney disease. Resolved in the face of rhabdomyolysis and many falls. 1.3-1.4 is his new baseline. Patient has been at baseline since approximately February 19. He has no longer needed IV fluids. 7. Type 2 diabetes mellitus, controlled. A1c was 6.3%. He is eating 100% of his meals. Metformin resumed February 22. Glucose is controlled. 8. Abrasions of multiple sites due to frequent falls. Photographs taken by nursing. These have all healed. 9. Falls at home. Unclear why he kept on falling. He was not intoxicated. Not under the influence of any recreational substance. No seizures, no syncope. No orthostasis. He was intermittently oversedated on his buprenorphine patch when he got here. So we stopped that. Here he is walking with a walker and does so on a regular basis. He did have 1 fall in the hospital where he was leaning forward and he started going toward the floor and the nurse pushed him back. 10. Poor hygiene on admission. He is taking baths here on a regular basis. 11. Abnormal EKG. Echo was done to make sure he did not have cor pulmonale and echo was normal. 12. Small rectal fissures or abrasions. Part of his psychosis is that aliens are Indians are shoving things in his rectum. He would use his fingers to manually disimpact himself. He gave himself the cuts. He still says that those things that are tucked into his rectum and sometimes speak to him. But he is having less and less agitation with this. 13. Rhabdomyolysis has resolved. 14. Review paren Norethin was stopped. It was supposed to be for back pain. But we think it was over sedating him and leading him to have falls. His last prescription was written a year ago. He was ordered for 13 weeks. However there were still several patches available in a box that his caregiver brought from home. Here he has not had any severe back pain.
[2023-03-09] MEDS: ACETAMINOPHEN 325 MG TABLET PO PRN (16:19)
[2023-03-10] MEDS: DULoxetine 30 MG CAPSULE PO SCH (09:26)
[2023-03-10] MEDS: SENNA 8.6 MG TABLET PO SCH ×2 (09:26→21:38)
[2023-03-10] MEDS: metFORMIN 500 MG TABLET PO SCH ×2 (09:26→17:21)
[2023-03-10] MEDS: LORazepam 0.5 MG TABLET SL SCH ×2 (09:26→21:38)
[2023-03-10] MEDS: OLANZapine ODT 5 MG TABLET TL SCH ×2 (09:26→21:38)
[2023-03-10] MEDS: DOCUSATE SODIUM 250 MG CAPSULE PO SCH ×2 (09:27→21:38)
[2023-03-10] MEDS: polyethylene glycoL 3350 17 GM PACKET PO SCH (09:27)
[2023-03-10] MEDS: ASPIRIN EC 81 MG TABLET PO SCH (09:27)
[2023-03-10] MEDS: MAGNESIUM OXIDE 400 MG TABLET PO SCH (09:27)
[2023-03-10] MEDS: MULTIVITAMIN W/MINERALS TABLET PO SCH (09:27)
[2023-03-10] MEDS: FLUTICASONE NASAL SPRAY NAS SCH (09:28)
--- NOTE | 2023-03-10 15:04 | PROVIDER PROGRESS NOTE ---
Progress Note Just waiting for placement. Eating 100% of his food. No behavioral issues. Compliant with his medications. Active Medications Generic Name Dose Route Start Last Admin Trade Name Jyoti PRN Reason Stop Dose Admin Acetaminophen 650 mg 02/15/23 19:57 03/09/23 16:19 Acetaminophen 325 Mg Tablet PO 650 mg Q4HR PRN Administration Pain or Fever > 38C (100.4F) Aspirin 81 mg 02/18/23 09:00 03/10/23 09:27 Aspirin Ec 81 Mg Tablet PO 81 mg DAILY ANGELA Administration Docusate Sodium 250 - 500 mg 02/26/23 17:00 03/10/23 09:27 Docusate Sodium 250 Mg Capsule PO 250 mg BID ANGELA Administration Duloxetine HCl 30 mg 02/15/23 13:30 03/10/23 09:26 Duloxetine 30 Mg Capsule PO 30 mg DAILY ANGELA Administration Fluticasone Propionate 1 sprays 02/17/23 09:00 03/10/23 09:28 Fluticasone Nasal [place] CRISTIAN 1 spray DAILY ANGELA Administration Haloperidol 2 mg 02/22/23 13:06 02/26/23 14:41 Haloperidol 5 Mg/Ml Vial IM 2 mg DAILY PRN Administration Agitation Hydrocortisone 1 applic 02/27/23 12:07 Hydrocortisone 1% Cream 28 Gm Tube TOP TID PRN ITCHING Ibuprofen 600 mg 02/15/23 19:57 03/03/23 20:57 Ibuprofen 600 Mg Tablet PO 600 mg Q6HR PRN Administration MINOR PAIN Lidocaine HCl 1 ml 02/23/23 13:54 02/26/23 13:59 Lidocaine Jelly 2% 6 Ml Jel.Pf.Shanda TOP 1 ml TID PRN Administration anal itching pain Lorazepam 0.5 mg 02/21/23 21:00 03/10/23 09:26 Lorazepam 0.5 Mg Tablet SL 0.5 mg BID ANGELA Administration Magnesium Oxide 400 mg 02/16/23 08:00 03/10/23 09:27 Magnesium Oxide 400 Mg Tablet PO 400 mg DAILYWM ANGELA Administration Metformin HCl 1,000 mg 02/22/23 17:00 03/10/23 09:26 Metformin 500 Mg Tablet PO 1,000 mg BIDWM ANGELA Administration Multivitamins/Minerals 1 tab 02/18/23 09:00 03/10/23 09:27 Multivitamin W/Minerals Tablet PO 1 tab DAILYWM ANGELA Administration Olanzapine 5 mg 02/23/23 21:00 03/10/23 09:26 Olanzapine Odt 5 Mg Tablet TL 5 mg BID ANGELA Administration Ondansetron HCl 4 mg 02/14/23 11:26 Ondansetron 4 Mg/2 Ml Vial IVP Q6HR PRN Nausea / Vomiting Polyethylene Glycol 17 gm 02/17/23 18:00 03/10/23 09:27 Polyethylene Glycol 3350 17 Gm Packet PO Not Given DAILY ANGELA Senna 8.6 - 17.2 mg 02/26/23 17:00 03/10/23 09:26 Senna 8.6 Mg Tablet PO 8.6 mg BID ANGELA Administration metFORMIN [Glucophage] 1,000 mg PO BIDWM 08/29/20 Aspirin [Aspirin EC] 81 mg PO DAILY 12/20/22 Atorvastatin Calcium [Lipitor] 80 mg PO HS 12/20/22 DULoxetine [Cymbalta] 60 mg PO DAILY 12/20/22 Fluticasone [Flonase] 1 sprays CRISTIAN DAILY 12/20/22 Gabapentin [Neurontin] 600 mg PO TID 12/20/22 risperiDONE [Risperdal] 3 mg PO BID 12/20/22 Buprenorphine 1 each TD Q7D PRN 12/21/22 Vital Signs - 8 hr 03/10/23 08:23 Temperature 36.3 C L Heart Rate [ 70 Brachial] Respiratory 18 Rate Blood Pressure 127/79 [Right Brachial artery] O2 Saturation 94 If not protocol 94 : Oxygen Flow, liters/minute Exam Lungs are clear. No increased respiratory effort with speaking or walking in the hallways Regular rate and rhythm Abdomen is soft, nontender, normal bowel sounds. Last bowel movement March 02. Extremities without edema. No ataxia. He has been compliant with using his walker. No labs since March 05. If he is going to be here long enough, next labs should probably be March 12. Assessment/plan 1. Major depressive disorder, recurrent, severe with psychotic symptoms The recently was admitted with multiple falls. Increasing psychosis. To the point he became catatonic. He has now been here 21 days. There has been remarkable and positive improvement. Most of the change came from resuming his Risperdal 3 mg twice daily, and adding a benzodiazepine for the catatonia. His psychiatrist let me know that they have been working on permanent placement for him. Its been slow going. He was living with his girlfriend/caregiver. Caregiver burden has been too difficult for her recently. We now have DPOA with his daughter. Daughter is amenable to having him placed. At this time we are awaiting for [facility] to negotiate a daily rate for his placement. 2. Catatonia has resolved. 3. Psychosis still present. He is still hallucinating at times. But much more controllable. 4. Left arm swelling. Duplex Doppler - February 18. 5. Right third toe infection. Resolved. Completed Keflex February 28. 6. Acute on chronic kidney disease. Resolved in the face of rhabdomyolysis and many falls. 1.3-1.4 is his new baseline. Patient has been at baseline since approximately February 19. He has no longer needed IV fluids. 7. Type 2 diabetes mellitus, controlled. A1c was 6.3%. He is eating 100% of his meals. Metformin resumed February 22. Glucose is controlled. 8. Abrasions of multiple sites due to frequent falls. Photographs taken by nursing. These have all healed. 9. Falls at home. Unclear why he kept on falling. He was not intoxicated. Not under the influence of any recreational substance. No seizures, no syncope. No orthostasis. He was intermittently oversedated on his buprenorphine patch when he got here. So we stopped that. Here he is walking with a walker and does so on a regular basis. He did have 1 fall in the hospital where he was leaning forward and he started going toward the floor and the nurse pushed him back. 10. Poor hygiene on admission. He is taking baths here on a regular basis. 11. Abnormal EKG. Echo was done to make sure he did not have cor pulmonale and echo was normal. 12. Small rectal fissures or abrasions. Part of his psychosis is that aliens are Indians are shoving things in his rectum. He would use his fingers to manually disimpact himself. He gave himself the cuts. He still says that those things that are tucked into his rectum and sometimes speak to him. But he is having less and less agitation with this. 13. Rhabdomyolysis has resolved. 14. Review paren Norethin was stopped. It was supposed to be for back pain. But we think it was over sedating him and leading him to have falls. His last prescription was written a year ago. He was ordered for 13 weeks. However there were still several patches available in a box that his caregiver brought from home. Here he has not had any severe back pain.
[2023-03-11] MEDS: LORazepam 0.5 MG TABLET SL SCH ×2 (08:45→20:46)
[2023-03-11] MEDS: DULoxetine 30 MG CAPSULE PO SCH (08:45)
[2023-03-11] MEDS: DOCUSATE SODIUM 250 MG CAPSULE PO SCH ×2 (08:45→20:46)
[2023-03-11] MEDS: OLANZapine ODT 5 MG TABLET TL SCH ×2 (08:45→20:46)
[2023-03-11] MEDS: MULTIVITAMIN W/MINERALS TABLET PO SCH (08:45)
[2023-03-11] MEDS: MAGNESIUM OXIDE 400 MG TABLET PO SCH (08:45)
[2023-03-11] MEDS: polyethylene glycoL 3350 17 GM PACKET PO SCH (08:46)
[2023-03-11] MEDS: SENNA 8.6 MG TABLET PO SCH ×2 (08:46→20:45)
[2023-03-11] MEDS: ASPIRIN EC 81 MG TABLET PO SCH (08:46)
[2023-03-11] MEDS: FLUTICASONE NASAL SPRAY NAS SCH (08:47)
[2023-03-11] MEDS: metFORMIN 500 MG TABLET PO SCH ×2 (09:29→18:24)
--- NOTE | 2023-03-11 10:31 | PROVIDER PROGRESS NOTE ---
Progress Note Patient is a 57-year-old male with major depression here awaiting placement. Active Medications Generic Name Dose Route Start Last Admin Trade Name Freq PRN Reason Stop Dose Admin Acetaminophen 650 mg 02/15/23 19:57 03/09/23 16:19 Acetaminophen 325 Mg Tablet PO 650 mg Q4HR PRN Administration Pain or Fever > 38C (100.4F) Aspirin 81 mg 02/18/23 09:00 03/11/23 08:46 Aspirin Ec 81 Mg Tablet PO 81 mg DAILY ANGELA Administration Docusate Sodium 250 - 500 mg 02/26/23 17:00 03/11/23 08:45 Docusate Sodium 250 Mg Capsule PO 250 mg BID ANGELA Administration Duloxetine HCl 30 mg 02/15/23 13:30 03/11/23 08:45 Duloxetine 30 Mg Capsule PO 30 mg DAILY ANGELA Administration Fluticasone Propionate 1 sprays 02/17/23 09:00 03/11/23 08:47 Fluticasone Nasal [place] CRISTIAN 1 spray DAILY ANGELA Administration Haloperidol 2 mg 02/22/23 13:06 02/26/23 14:41 Haloperidol 5 Mg/Ml Vial IM 2 mg DAILY PRN Administration Agitation Hydrocortisone 1 applic 02/27/23 12:07 Hydrocortisone 1% Cream 28 Gm Tube TOP TID PRN ITCHING Ibuprofen 600 mg 02/15/23 19:57 03/03/23 20:57 Ibuprofen 600 Mg Tablet PO 600 mg Q6HR PRN Administration MINOR PAIN Lidocaine HCl 1 ml 02/23/23 13:54 02/26/23 13:59 Lidocaine Jelly 2% 6 Ml Jel.Pf.Shanda TOP 1 ml TID PRN Administration anal itching pain Lorazepam 0.5 mg 02/21/23 21:00 03/11/23 08:45 Lorazepam 0.5 Mg Tablet SL 0.5 mg BID ANGELA Administration Magnesium Oxide 400 mg 02/16/23 08:00 03/11/23 08:45 Magnesium Oxide 400 Mg Tablet PO 400 mg DAILYWM ANGELA Administration Metformin HCl 1,000 mg 02/22/23 17:00 03/11/23 09:29 Metformin 500 Mg Tablet PO 1,000 mg BIDWM ANGELA Administration Multivitamins/Minerals 1 tab 02/18/23 09:00 03/11/23 08:45 Multivitamin W/Minerals Tablet PO 1 tab DAILYWM ANGELA Administration Olanzapine 5 mg 02/23/23 21:00 03/11/23 08:45 Olanzapine Odt 5 Mg Tablet TL 5 mg BID ANGELA Administration Ondansetron HCl 4 mg 02/14/23 11:26 Ondansetron 4 Mg/2 Ml Vial IVP Q6HR PRN Nausea / Vomiting Polyethylene Glycol 17 gm 02/17/23 18:00 03/11/23 08:46 Polyethylene Glycol 3350 17 Gm Packet PO Not Given DAILY ANGELA Senna 8.6 - 17.2 mg 02/26/23 17:00 03/11/23 08:46 Senna 8.6 Mg Tablet PO 8.6 mg BID ANGELA Administration metFORMIN [Glucophage] 1,000 mg PO BIDWM 08/29/20 Aspirin [Aspirin EC] 81 mg PO DAILY 12/20/22 Atorvastatin Calcium [Lipitor] 80 mg PO HS 12/20/22 DULoxetine [Cymbalta] 60 mg PO DAILY 12/20/22 Fluticasone [Flonase] 1 sprays CRISTIAN DAILY 12/20/22 Gabapentin [Neurontin] 600 mg PO TID 12/20/22 risperiDONE [Risperdal] 3 mg PO BID 12/20/22 Buprenorphine 1 each TD Q7D PRN 12/21/22 Exam Lungs are clear. No increased respiratory effort with speaking or walking in the hallways Regular rate and rhythm Abdomen is soft, nontender, normal bowel sounds. Last bowel movement March 02. Extremities without edema. No ataxia. He has been compliant with using his walker. No labs since March 05. If he is going to be here long enough, next labs should probably be March 12. Assessment/plan 1. Major depressive disorder, recurrent, severe with psychotic symptoms He was admitted with multiple falls. Increasing psychosis. To the point he became catatonic. He has now been here over 21. There has been remarkable and positive improvement. Most of the change came from resuming his Risperdal 3 mg twice daily, and adding a benzodiazepine for the catatonia. His psychiatrist let me know that they have been working on permanent placement for him. Its been slow going. He was living with his girlfriend/caregiver. Caregiver burden has been too difficult for her recently. We now have DPOA with his daughter. Daughter is amenable to having him placed. At this time we are awaiting for [facility] to negotiate a daily rate for his placement. 2. Catatonia has resolved. 3. Psychosis still present. He is still hallucinating at times. But much more controllable. 4. Left arm swelling. Duplex Doppler - February 18. 5. Right third toe infection. Resolved. Completed Keflex February 28. 6. Acute on chronic kidney disease. Resolved in the face of rhabdomyolysis and many falls. 1.3-1.4 is his new baseline. Patient has been at baseline since approximately February 19. He has no longer needed IV fluids. 7. Type 2 diabetes mellitus, controlled. A1c was 6.3%. He is eating 100% of his meals. Metformin resumed February 22. Glucose is controlled. 8. Abrasions of multiple sites due to frequent falls. Photographs taken by nursing. These have all healed. 9. Falls at home. Unclear why he kept on falling. He was not intoxicated. Not under the influence of any recreational substance. No seizures, no syncope. No orthostasis. He was intermittently oversedated on his buprenorphine patch when he got here. So we stopped that. Here he is walking with a walker and does so on a regular basis. He did have 1 fall in the hospital where he was leaning forward and he started going toward the floor and the nurse pushed him back. 10. Poor hygiene on admission. He is taking baths here on a regular basis. 11. Abnormal EKG. Echo was done to make sure he did not have cor pulmonale and echo was normal. 12. Small rectal fissures or abrasions. Part of his psychosis is that aliens are Indians are shoving things in his rectum. He would use his fingers to manually disimpact himself. He gave himself the cuts. He still says that those things that are tucked into his rectum and sometimes speak to him. But he is having less and less agitation with this. 13. Rhabdomyolysis has resolved. 14. Review paren Norethin was stopped. It was supposed to be for back pain. But we think it was over sedating him and leading him to have falls. His last prescription was written a year ago. He was ordered for 13 weeks. However there were still several patches available in a box that his caregiver brought from home. Here he has not had any severe back pain.
[2023-03-12 05:05] LABS: HCT - HEMATOCRIT 37.4 % (42.0-52.0); HGB - HEMOGLOBIN 12.6 g/dL (14.0-18.0); MEAN CORPUSCULAR HEMOGLOBIN 29.9 pg (27.0-31.0); MEAN CORPUSCULAR HGB CONC 33.7 g/dL (32.0-36.0); MEAN CORPUSCULAR VOLUME 88.6 fL (80.0-94.0); MEAN PLATELET VOLUME 9.6 fL (7.4-11.4); RED BLOOD COUNT 4.22 10^6/uL (4.70-6.10); RED CELL DISTRIBUTION WIDTH 12.8 % (12.0-15.0)
[2023-03-12 05:12] LABS: CALCIUM 9.5 mg/dL (8.5-10.3); CREATININE 1.3 mg/dL (0.6-1.2); POTASSIUM 3.9 mmol/L (3.5-5.0)
[2023-03-12] MEDS: OLANZapine ODT 5 MG TABLET TL SCH ×2 (08:37→20:22)
[2023-03-12] MEDS: MULTIVITAMIN W/MINERALS TABLET PO SCH (08:37)
[2023-03-12] MEDS: ASPIRIN EC 81 MG TABLET PO SCH (08:37)
[2023-03-12] MEDS: MAGNESIUM OXIDE 400 MG TABLET PO SCH (08:37)
[2023-03-12] MEDS: DULoxetine 30 MG CAPSULE PO SCH (08:37)
[2023-03-12] MEDS: LORazepam 0.5 MG TABLET SL SCH ×2 (08:38→20:22)
[2023-03-12] MEDS: DOCUSATE SODIUM 250 MG CAPSULE PO SCH ×2 (08:38→20:22)
[2023-03-12] MEDS: polyethylene glycoL 3350 17 GM PACKET PO SCH (08:38)
[2023-03-12] MEDS: SENNA 8.6 MG TABLET PO SCH ×2 (08:38→20:22)
[2023-03-12] MEDS: FLUTICASONE NASAL SPRAY NAS SCH (08:39)
[2023-03-12] MEDS: metFORMIN 500 MG TABLET PO SCH ×2 (09:48→16:45)
--- NOTE | 2023-03-12 12:27 | PROVIDER PROGRESS NOTE ---
Assessment/Plan - Problem List (1) Major depressive disorder, recurrent, severe with psychotic symptoms Assessment/Plan: He was admitted with multiple falls. Increasing psychosis. To the point he became catatonic. He has now been here over 21. There has been remarkable and positive improvement. Most of the change came from resuming his Risperdal 3 mg twice daily, and adding a benzodiazepine for the catatonia. His psychiatrist let me know that they have been working on permanent placement for him. Its been slow going. He was living with his girlfriend/caregiver. Caregiver burden has been too difficult for her recently. We now have DPOA with his daughter. Daughter is amenable to having him placed. At this time we are awaiting for [facility] to negotiate a daily rate for his placement. 2. Catatonia has resolved after restarting Risperdal 3 mg twice daily, and adding a benzodiazepine. 3. Psychosis still present. He is still hallucinating at times. But much more controllable. 4. Left arm swelling. Duplex Doppler - February 18 ws neg 5. Right third toe infection. Resolved. Completed Keflex February 28. 6. Acute on chronic kidney disease. Resolved in the face of rhabdomyolysis and many falls. 1.3-1.4 is his new baseline. Patient has been at baseline since approximately February 19. He has no longer needed IV fluids. 7. Type 2 diabetes mellitus, controlled. A1c was 6.3%. He is eating 100% of his meals. Metformin resumed February 22. Glucose is controlled. 8. Abrasions of multiple sites due to frequent falls. Photographs taken by nursing. These have all healed. 9. Falls at home. Unclear why he kept on falling. He was not intoxicated. No seizures, no syncope. No orthostasis. Not under the influence of any recreational substance, however we suspect he got Suboxone patch haphazardly. He was intermittently oversedated on his buprenorphine patch when he got here, so we stopped that. Here he is now walking with a walker and does so on a regular basis. He did have 1 fall in the hospital where he was leaning forward and he started going toward the floor and the nurse pushed him back. 10. Poor hygiene on admission. He is taking showers here on a regular basis. 11. Abnormal EKG. Echo was done to make sure he did not have cor pulmonale and Echo was normal. 12. Small rectal fissures or abrasions. Part of his psychosis is that aliens or Indians are shoving things in his rectum. He would use his fingers to manually disimpact himself. He gave himself the rectal cuts. He still says that those things that are tucked into his rectum and sometimes speak to him. But he is having less and less agitation with this. 13. Rhabdomyolysis This was from the falls and has esolved. 14. Use of buprenorphine patch. This was stopped. It was supposed to be for back pain. But we think it was over sedating him and leading him to have falls. His last prescription was written a year ago and it was ordered for 13 weeks. However there were still several patches available in a box that his caregiver brought from home. Here he has not had any severe back pain. - Current Meds Current Meds: Current Medications Generic Name Dose Route Start Last Admin Trade Name Freq PRN Reason Stop Dose Admin Acetaminophen 650 mg 02/15/23 19:57 03/09/23 16:19 Acetaminophen 325 Mg Tablet PO 650 mg Q4HR PRN Administration Pain or Fever > 38C (100.4F) Aspirin 81 mg 02/18/23 09:00 03/12/23 08:37 Aspirin Ec 81 Mg Tablet PO 81 mg DAILY ANGELA Administration Docusate Sodium 250 - 500 mg 02/26/23 17:00 03/12/23 08:38 Docusate Sodium 250 Mg Capsule PO 250 mg BID ANGELA Administration Duloxetine HCl 30 mg 02/15/23 13:30 03/12/23 08:37 Duloxetine 30 Mg Capsule PO 30 mg DAILY ANGELA Administration Fluticasone Propionate 1 sprays 02/17/23 09:00 03/12/23 08:39 Fluticasone Nasal [place] CRISTIAN 1 spray DAILY ANGELA Administration Haloperidol 2 mg 02/22/23 13:06 02/26/23 14:41 Haloperidol 5 Mg/Ml Vial IM 2 mg DAILY PRN Administration Agitation Ibuprofen 600 mg 02/15/23 19:57 03/03/23 20:57 Ibuprofen 600 Mg Tablet PO 600 mg Q6HR PRN Administration MINOR PAIN Lidocaine HCl 1 ml 02/23/23 13:54 02/26/23 13:59 Lidocaine Jelly 2% 6 Ml Jel.Pf.Shanda TOP 1 ml TID PRN Administration anal itching pain Lorazepam 0.5 mg 02/21/23 21:00 03/12/23 08:38 Lorazepam 0.5 Mg Tablet SL 0.5 mg BID ANGELA Administration Magnesium Oxide 400 mg 02/16/23 08:00 03/12/23 08:37 Magnesium Oxide 400 Mg Tablet PO 400 mg DAILYWM ANGELA Administration Metformin HCl 1,000 mg 02/22/23 17:00 03/12/23 09:48 Metformin 500 Mg Tablet PO 1,000 mg BIDWM ANGELA Administration Multivitamins/Minerals 1 tab 02/18/23 09:00 03/12/23 08:37 Multivitamin W/Minerals Tablet PO 1 tab DAILYWM ANGELA Administration Olanzapine 5 mg 02/23/23 21:00 03/12/23 08:37 Olanzapine Odt 5 Mg Tablet TL 5 mg BID ANGELA Administration Polyethylene Glycol 17 gm 02/17/23 18:00 03/12/23 08:38 Polyethylene Glycol 3350 17 Gm Packet PO 17 gm DAILY ANGELA Administration Senna 8.6 - 17.2 mg 02/26/23 17:00 03/12/23 08:38 Senna 8.6 Mg Tablet PO 8.6 mg BID ANGELA Administration - Lab Result Fish Bone Diagrams: 03/12/23 04:23 03/12/23 04:23 Subjective - Subjective Nursing Reports: Other (Patient is a 57-year-old male with major depression here awaiting placement. He still hallucinates intermittently (Thinks that people are inside him and occasionally come out of his rectum)) Objective Vital Signs: Vital Signs - 24 hr 03/11/23 03/11/23 03/12/23 13:00 21:00 08:07 Temperature 36.5 C 36.4 C L Heart Rate [ 89 97 89 Brachial] Respiratory 20 18 Rate Blood Pressure 142/82 H 131/79 H 136/86 H [Right Brachial artery] O2 Saturation 96 94 Oxygen O2 Source Room air I&O (Last 24 Hrs): Intake and Output Totals x24h 03/10/23 03/11/23 03/12/23 23:59 23:59 23:59 Intake Total 1040 890 960 Balance 1040 890 960 General: Alert HEENT: Mucous membr. moist/pink Neck: Supple Neuro: Alert Cardiovascular: Regular rate Respiratory: No respiratory distress Abdomen: Soft Extremities: No edema - Results Results: Laboratory Results WBC 10.0 x10^3/uL (4.8-10.8) 03/12/23 04: RBC 4.22 10^6/uL (4.70-6.10) L 03/12/23 04: Hgb 12.6 g/dL (14.0-18.0) L 03/12/23 04:23 Hct 37.4 % (42.0-52.0) L 03/12/23 04:23 MCV 88.6 fL (80.0-94.0) 03/12/23 04:23 MCH 29.9 pg (27.0-31.0) 03/12/23 04: MCHC 33.7 g/dL (32.0-36.0) 03/12/23 04: RDW 12.8 % (12.0-15.0) 03/12/23 04: Plt Count 309 10^3/uL (130-450) 03/12/23 04: MPV 9.6 fL (7.4-11.4) 03/12/23 04:23 Neut # (Auto) 4.1 10^3/uL (1.5-6.6) 03/05/23 05:20 Lymph # (Auto) 2.8 10^3/uL (1.5-3.5) 03/05/23 05:20 Bates # (Auto) 0.6 10^3/uL (0.0-1.0) 03/05/23 05:20 Eos # (Auto) 0.3 10^3/uL (0.0-0.7) 03/05/23 05:20 Baso # (Auto) 0.0 10^3/uL (0.0-0.1) 03/05/23 05:20 Absolute Nucleated RBC 0.00 x10^3/uL 03/05/23 05:20 Total Counted 100 02/14/23 03:15 Band Neuts % (Manual) 9 % (0-10) 02/14/23 03:15 Abnorm Lymph % (Manual) 0 % 02/14/23 03:15 Nucleated RBC % 0.0 /100WBC 03/05/23 05:20 Neutrophils # (Manual) 18.2 10^3/uL (1.5-6.6) H 02/14/23 03:15 Lymphocytes # (Manual) 1.0 10^3/uL (1.5-3.5) L 02/14/23 03:15 Monocytes # (Manual) 1.2 10^3/uL (0.0-1.0) H 02/14/23 03:15 Eosinophils # (Manual) 0.0 10^3/uL (0-0.7) 02/14/23 03:15 Basophils # (Manual) 0.0 10^3/uL (0-0.1) 02/14/23 03:15 Differential Comment MANUAL DIFFERENTIAL 02/14/23 03:15 Sodium 137 mmol/L (135-145) 03/12/23 04:23 Potassium 3.9 mmol/L (3.5-5.0) 03/12/23 04:23 Chloride 102 mmol/L (101-111) 03/12/23 04:23 Carbon Dioxide 27 mmol/L (21-32) 03/12/23 04:23 Anion Gap 8.0 (6-13) 03/12/23 04:23 BUN 29 mg/dL (6-20) H 03/12/23 04:23 Creatinine 1.3 mg/dL (0.6-1.2) H 03/12/23 04:23 Estimated GFR (MDRD) 57 (>89) L 03/12/23 04:23 Glucose 106 mg/dL (70-100) H 03/12/23 04:23 POC Whole Bld Glucose 99 mg/dL (70 - 100) 03/12/23 07:19 Estimat Average Glucose 134 mg/dL (70-100) H 02/15/23 05:20 Hemoglobin A1c % 6.3 % (4.27-6.07) H 02/15/23 05:20 Calcium 9.5 mg/dL (8.5-10.3) 03/12/23 04:23 Magnesium 1.5 mg/dL (1.7-2.8) L 02/17/23 05:35 Total Bilirubin 0.3 mg/dL (0.2-1.0) 03/03/23 04:48 AST 25 IU/L (10-42) 03/03/23 04:48 ALT 33 IU/L (10-60) 03/03/23 04:48 Alkaline Phosphatase 77 IU/L (42-121) 03/03/23 04:48 Total Creatine Kinase 440 IU/L (22-269) H 02/23/23 14:10 CK-MB (CK-2) 265.9 ng/mL (0.6-6.3) H 02/14/23 03:15 Total Protein 7.2 g/dL (6.7-8.2) 03/03/23 04:48 Albumin 4.0 g/dL (3.2-5.5) 03/03/23 04:48 Globulin 3.2 g/dL (2.1-4.2) 03/03/23 04:48 Albumin/Globulin Ratio 1.3 (1.0-2.2) 03/03/23 04:48 Lipase 34 U/L (22-51) 02/14/23 03:15 TSH 1.21 uIU/mL (0.34-5.60) 02/14/23 03:15 Urine Color YELLOW 02/18/23 15:10 Urine Clarity CLEAR (CLEAR) 02/18/23 15:10 Urine pH 5.5 PH (5.0-7.5) 02/18/23 15:10 Ur Specific [place] 1.020 (1.002-1.030) 02/18/23 15:10 Urine Protein NEGATIVE mg/dL (NEGATIVE) 02/18/23 15:10 Urine Glucose (UA) NEGATIVE mg/dL (NEGATIVE) 02/18/23 15:10 Urine Ketones NEGATIVE mg/dL (NEGATIVE) 02/18/23 15:10 Urine Occult Blood MODERATE (NEGATIVE) H 02/18/23 15:10 Urine Nitrite NEGATIVE (NEGATIVE) 02/18/23 15:10 Urine Bilirubin NEGATIVE (NEGATIVE) 02/18/23 15:10 Urine Urobilinogen 0.2 (NORMAL) E.U./dL (NORMAL) 02/18/23 15:10 Ur Leukocyte Esterase TRACE (NEGATIVE) H 02/18/23 15:10 Urine RBC 11-25 /HPF (0-5) H 02/18/23 15:10 Urine WBC 6-10 /HPF (0-3) H 02/18/23 15:10 Ur Squamous Epith Cells RARE Squamous (<= Few) 02/18/23 15:10 Urine Bacteria None Seen /HPF (None Seen) 02/18/23 15:10 Urine Sperm PRESENT 02/18/23 15:10 Ur Microscopic Review INDICATED 02/14/23 10:34 Urine Culture Comments INDICATED 02/18/23 15:10 Urine Opiates Screen NEGATIVE (NEGATIVE) 02/14/23 10:34 Ur Oxycodone Screen NEGATIVE (NEGATIVE) 02/14/23 10:34 Urine Methadone Screen NEGATIVE (NEGATIVE) 02/14/23 10:34 Ur Propoxyphene Screen NEGATIVE (NEGATIVE) 02/14/23 10:34 Ur Barbiturates Screen NEGATIVE (NEGATIVE) 02/14/23 10:34 Ur Tricyclics Screen NEGATIVE (NEGATIVE) 02/14/23 10:34 Ur Phencyclidine Scrn NEGATIVE (NEGATIVE) 02/14/23 10:34 Ur Amphetamine Screen NEGATIVE (NEGATIVE) 02/14/23 10:34 U Methamphetamines Scrn NEGATIVE (NEGATIVE) 02/14/23 10:34 U Benzodiazepines Scrn NEGATIVE (NEGATIVE) 02/14/23 10:34 Urine Cocaine Screen NEGATIVE (NEGATIVE) 02/14/23 10:34 U Cannabinoids Screen POSITIVE (NEGATIVE) H 02/14/23 10:34 Ethyl Alcohol < 5.0 mg/dL 02/14/23 03:15
[2023-03-13] MEDS: DULoxetine 30 MG CAPSULE PO SCH (08:15)
[2023-03-13] MEDS: metFORMIN 500 MG TABLET PO SCH ×2 (08:15→17:15)
[2023-03-13] MEDS: MAGNESIUM OXIDE 400 MG TABLET PO SCH (08:16)
[2023-03-13] MEDS: MULTIVITAMIN W/MINERALS TABLET PO SCH (08:16)
[2023-03-13] MEDS: ASPIRIN EC 81 MG TABLET PO SCH (08:16)
[2023-03-13] MEDS: OLANZapine ODT 5 MG TABLET TL SCH ×2 (08:16→21:17)
[2023-03-13] MEDS: LORazepam 0.5 MG TABLET SL SCH ×2 (08:16→21:17)
[2023-03-13] MEDS: SENNA 8.6 MG TABLET PO SCH ×2 (08:16→21:17)
[2023-03-13] MEDS: DOCUSATE SODIUM 250 MG CAPSULE PO SCH ×2 (08:16→21:17)
[2023-03-13] MEDS: polyethylene glycoL 3350 17 GM PACKET PO SCH (08:16)
[2023-03-13] MEDS: FLUTICASONE NASAL SPRAY NAS SCH (08:17)
--- NOTE | 2023-03-13 13:42 | PROVIDER PROGRESS NOTE ---
Assessment/Plan - Problem List (1) Major depressive disorder, recurrent, severe with psychotic symptoms Assessment/Plan: He was admitted with multiple falls. Increasing psychosis. To the point he became catatonic. He has now been here over 21. There has been remarkable and positive improvement. Most of the change came from resuming his Risperdal 3 mg twice daily, and adding a benzodiazepine for the catatonia. His psychiatrist let me know that they have been working on permanent placement for him. Its been slow going. He was living with his girlfriend/caregiver. Caregiver burden has been too difficult for her recently. We now have DPOA with his daughter. Daughter is amenable to having him placed. At this time we are awaiting for [facility] to negotiate a daily rate for his placement. 2. Catatonia has resolved after restarting Risperdal 3 mg twice daily, and adding a benzodiazepine. 3. Chronic psychosis still present. He is still hallucinating at times. But much more controllable. 4. Chronic kidney disease. Acute kidney injury has resolved in the face of rhabdomyolysis and many falls. His creat of 1.3-1.4 is his new baseline. Patient has been at baseline since approximately February 19. He has no longer needed IV fluids. 5. Type 2 diabetes mellitus, controlled. A1c was 6.3%. He is eating 100% of his meals. Metformin resumed February 22. Glucose is controlled. 6. Small rectal fissures or abrasions. Part of his psychosis is that aliens or Indians are shoving things in his rectum. He would use his fingers to manually disimpact himself. He gave himself the rectal cuts. He still says that those things that are tucked into his rectum and sometimes speak to him. But he is having less and less agitation with this. 7. Falls at home. Unclear why he kept on falling. He was not intoxicated. No seizures, no syncope. No orthostasis. Not under the influence of any recreational substance, however we suspect he got Suboxone patch haphazardly. He was intermittently oversedated on his buprenorphine patch when he got here, so we stopped that. Here he is now walking with a walker and does so on a regular basis. He did have 1 fall in the hospital where he was leaning forward and he started going toward the floor and the nurse pushed him back. 8. Abrasions of multiple sites due to frequent falls. Photographs taken by nursing. These have all healed. 9. Poor hygiene on admission. He is taking showers here on a regular basis. 10. Abnormal EKG. Echo was done to make sure he did not have cor pulmonale and Echo was normal. 10. Left arm swelling. Duplex Doppler - February 18 ws neg 11. Right third toe infection. Resolved. Completed Keflex February 28. 12. Rhabdomyolysis This was from the falls and has resolved. 13. Hx of Use of buprenorphine patch. This was stopped. It was supposed to be for back pain. But we think it was over sedating him and leading him to have falls. His last prescription was written a year ago and it was ordered for 13 weeks. However there were still several patches available in a box that his caregiver brought from home. Here he has not had any severe back pain. - Current Meds Current Meds: Current Medications Generic Name Dose Route Start Last Admin Trade Name Freq PRN Reason Stop Dose Admin Acetaminophen 650 mg 02/15/23 19:57 03/09/23 16:19 Acetaminophen 325 Mg Tablet PO 650 mg Q4HR PRN Administration Pain or Fever > 38C (100.4F) Aspirin 81 mg 02/18/23 09:00 03/13/23 08:16 Aspirin Ec 81 Mg Tablet PO 81 mg DAILY ANGELA Administration Docusate Sodium 250 - 500 mg 02/26/23 17:00 03/13/23 08:16 Docusate Sodium 250 Mg Capsule PO 250 mg BID ANGELA Administration Duloxetine HCl 30 mg 02/15/23 13:30 03/13/23 08:15 Duloxetine 30 Mg Capsule PO 30 mg DAILY ANGELA Administration Fluticasone Propionate 1 sprays 02/17/23 09:00 03/13/23 08:17 Fluticasone Nasal [place] CRISTIAN 1 spray DAILY ANGELA Administration Haloperidol 2 mg 02/22/23 13:06 02/26/23 14:41 Haloperidol 5 Mg/Ml Vial IM 2 mg DAILY PRN Administration Agitation Ibuprofen 600 mg 02/15/23 19:57 03/03/23 20:57 Ibuprofen 600 Mg Tablet PO 600 mg Q6HR PRN Administration MINOR PAIN Lidocaine HCl 1 ml 02/23/23 13:54 02/26/23 13:59 Lidocaine Jelly 2% 6 Ml Jel.Pf.Shanda TOP 1 ml TID PRN Administration anal itching pain Lorazepam 0.5 mg 02/21/23 21:00 03/13/23 08:16 Lorazepam 0.5 Mg Tablet SL 0.5 mg BID ANGELA Administration Magnesium Oxide 400 mg 02/16/23 08:00 03/13/23 08:16 Magnesium Oxide 400 Mg Tablet PO 400 mg DAILYWM ANGELA Administration Metformin HCl 1,000 mg 02/22/23 17:00 03/13/23 08:15 Metformin 500 Mg Tablet PO 1,000 mg BIDWM ANGELA Administration Multivitamins/Minerals 1 tab 02/18/23 09:00 03/13/23 08:16 Multivitamin W/Minerals Tablet PO 1 tab DAILYWM ANGELA Administration Olanzapine 5 mg 02/23/23 21:00 03/13/23 08:16 Olanzapine Odt 5 Mg Tablet TL 5 mg BID ANGELA Administration Polyethylene Glycol 17 gm 02/17/23 18:00 03/13/23 08:16 Polyethylene Glycol 3350 17 Gm Packet PO 17 gm DAILY ANGELA Administration Senna 8.6 - 17.2 mg 02/26/23 17:00 03/13/23 08:16 Senna 8.6 Mg Tablet PO 8.6 mg BID ANGELA Administration - Lab Result Fish Bone Diagrams: 03/12/23 04:23 03/12/23 04:23 Subjective - Subjective Patient Reports: Resting Comfortably Objective Vital Signs: Vital Signs - 24 hr 03/12/23 03/13/23 15:39 10:18 Temperature 36.6 C 36.5 C Heart Rate [ 76 85 Brachial] Respiratory 17 18 Rate Blood Pressure 122/67 129/86 H [Right Brachial artery] O2 Saturation 97 98 Oxygen O2 Source Room air I&O (Last 24 Hrs): Intake and Output Totals x24h 03/11/23 03/12/23 03/13/23 23:59 23:59 23:59 Intake Total 890 1440 480 Balance 890 1440 480 General: Alert, No acute distress Neuro: Non Focal Cardiovascular: Regular rate Respiratory: No respiratory distress Extremities: No edema - Results Results: Laboratory Results WBC 10.0 x10^3/uL (4.8-10.8) 03/12/23 04:23 RBC 4.22 10^6/uL (4.70-6.10) L 03/12/23 04:23 Hgb 12.6 g/dL (14.0-18.0) L 03/12/23 04: Hct 37.4 % (42.0-52.0) L 03/12/23 04: MCV 88.6 fL (80.0-94.0) 03/12/23 04:23 MCH 29.9 pg (27.0-31.0) 03/12/23 04: MCHC 33.7 g/dL (32.0-36.0) 03/12/23 04: RDW 12.8 % (12.0-15.0) 03/12/23 04:23 Plt Count 309 10^3/uL (130-450) 03/12/23 04: MPV 9.6 fL (7.4-11.4) 03/12/23 04:23 Neut # (Auto) 4.1 10^3/uL (1.5-6.6) 03/05/23 05:20 Lymph # (Auto) 2.8 10^3/uL (1.5-3.5) 03/05/23 05:20 [place] # (Auto) 0.6 10^3/uL (0.0-1.0) 03/05/23 05:20 Eos # (Auto) 0.3 10^3/uL (0.0-0.7) 03/05/23 05:20 Baso # (Auto) 0.0 10^3/uL (0.0-0.1) 03/05/23 05:20 Absolute Nucleated RBC 0.00 x10^3/uL 03/05/23 05:20 Total Counted 100 02/14/23 03:15 Band Neuts % (Manual) 9 % (0-10) 02/14/23 03:15 Abnorm Lymph % (Manual) 0 % 02/14/23 03:15 Nucleated RBC % 0.0 /100WBC 03/05/23 05:20 Neutrophils # (Manual) 18.2 10^3/uL (1.5-6.6) H 02/14/23 03:15 Lymphocytes # (Manual) 1.0 10^3/uL (1.5-3.5) L 02/14/23 03:15 Monocytes # (Manual) 1.2 10^3/uL (0.0-1.0) H 02/14/23 03:15 Eosinophils # (Manual) 0.0 10^3/uL (0-0.7) 02/14/23 03:15 Basophils # (Manual) 0.0 10^3/uL (0-0.1) 02/14/23 03:15 Differential Comment MANUAL DIFFERENTIAL 02/14/23 03:15 Sodium 137 mmol/L (135-145) 03/12/23 04:23 Potassium 3.9 mmol/L (3.5-5.0) 03/12/23 04:23 Chloride 102 mmol/L (101-111) 03/12/23 04:23 Carbon Dioxide 27 mmol/L (21-32) 03/12/23 04:23 Anion Gap 8.0 (6-13) 03/12/23 04:23 BUN 29 mg/dL (6-20) H 03/12/23 04:23 Creatinine 1.3 mg/dL (0.6-1.2) H 03/12/23 04:23 Estimated GFR (MDRD) 57 (>89) L 03/12/23 04:23 Glucose 106 mg/dL (70-100) H 03/12/23 04:23 POC Whole Bld Glucose 115 mg/dL (70 - 100) H 03/13/23 07:31 Estimat Average Glucose 134 mg/dL (70-100) H 02/15/23 05:20 Hemoglobin A1c % 6.3 % (4.27-6.07) H 02/15/23 05:20 Calcium 9.5 mg/dL (8.5-10.3) 03/12/23 04:23 Magnesium 1.5 mg/dL (1.7-2.8) L 02/17/23 05:35 Total Bilirubin 0.3 mg/dL (0.2-1.0) 03/03/23 04:48 AST 25 IU/L (10-42) 03/03/23 04:48 ALT 33 IU/L (10-60) 03/03/23 04:48 Alkaline Phosphatase 77 IU/L (42-121) 03/03/23 04:48 Total Creatine Kinase 440 IU/L (22-269) H 02/23/23 14:10 CK-MB (CK-2) 265.9 ng/mL (0.6-6.3) H 02/14/23 03:15 Total Protein 7.2 g/dL (6.7-8.2) 03/03/23 04:48 Albumin 4.0 g/dL (3.2-5.5) 03/03/23 04:48 Globulin 3.2 g/dL (2.1-4.2) 03/03/23 04:48 Albumin/Globulin Ratio 1.3 (1.0-2.2) 03/03/23 04:48 Lipase 34 U/L (22-51) 02/14/23 03:15 TSH 1.21 uIU/mL (0.34-5.60) 02/14/23 03:15 Urine Color YELLOW 02/18/23 15:10 Urine Clarity CLEAR (CLEAR) 02/18/23 15:10 Urine pH 5.5 PH (5.0-7.5) 02/18/23 15:10 Ur Specific [place] 1.020 (1.002-1.030) 02/18/23 15:10 Urine Protein NEGATIVE mg/dL (NEGATIVE) 02/18/23 15:10 Urine Glucose (UA) NEGATIVE mg/dL (NEGATIVE) 02/18/23 15:10 Urine Ketones NEGATIVE mg/dL (NEGATIVE) 02/18/23 15:10 Urine Occult Blood MODERATE (NEGATIVE) H 02/18/23 15:10 Urine Nitrite NEGATIVE (NEGATIVE) 02/18/23 15:10 Urine Bilirubin NEGATIVE (NEGATIVE) 02/18/23 15:10 Urine Urobilinogen 0.2 (NORMAL) E.U./dL (NORMAL) 02/18/23 15:10 Ur Leukocyte Esterase TRACE (NEGATIVE) H 02/18/23 15:10 Urine RBC 11-25 /HPF (0-5) H 02/18/23 15:10 Urine WBC 6-10 /HPF (0-3) H 02/18/23 15:10 Ur Squamous Epith Cells RARE Squamous (<= Few) 02/18/23 15:10 Urine Bacteria None Seen /HPF (None Seen) 02/18/23 15:10 Urine Sperm PRESENT 02/18/23 15:10 Ur Microscopic Review INDICATED 02/14/23 10:34 Urine Culture Comments INDICATED 02/18/23 15:10 Urine Opiates Screen NEGATIVE (NEGATIVE) 02/14/23 10:34 Ur Oxycodone Screen NEGATIVE (NEGATIVE) 02/14/23 10:34 Urine Methadone Screen NEGATIVE (NEGATIVE) 02/14/23 10:34 Ur Propoxyphene Screen NEGATIVE (NEGATIVE) 02/14/23 10:34 Ur Barbiturates Screen NEGATIVE (NEGATIVE) 02/14/23 10:34 Ur Tricyclics Screen NEGATIVE (NEGATIVE) 02/14/23 10:34 Ur Phencyclidine Scrn NEGATIVE (NEGATIVE) 02/14/23 10:34 Ur Amphetamine Screen NEGATIVE (NEGATIVE) 02/14/23 10:34 U Methamphetamines Scrn NEGATIVE (NEGATIVE) 02/14/23 10:34 U Benzodiazepines Scrn NEGATIVE (NEGATIVE) 02/14/23 10:34 Urine Cocaine Screen NEGATIVE (NEGATIVE) 02/14/23 10:34 U Cannabinoids Screen POSITIVE (NEGATIVE) H 02/14/23 10:34 Ethyl Alcohol < 5.0 mg/dL 02/14/23 03:15
[2023-03-14] MEDS: metFORMIN 500 MG TABLET PO SCH ×2 (08:53→16:33)
[2023-03-14] MEDS: OLANZapine ODT 5 MG TABLET TL SCH ×2 (08:53→20:30)
[2023-03-14] MEDS: LORazepam 0.5 MG TABLET SL SCH ×2 (08:53→20:30)
[2023-03-14] MEDS: FLUTICASONE NASAL SPRAY NAS SCH (08:53)
[2023-03-14] MEDS: DOCUSATE SODIUM 250 MG CAPSULE PO SCH ×2 (08:53→20:29)
[2023-03-14] MEDS: ASPIRIN EC 81 MG TABLET PO SCH (08:53)
[2023-03-14] MEDS: MAGNESIUM OXIDE 400 MG TABLET PO SCH (08:53)
[2023-03-14] MEDS: DULoxetine 30 MG CAPSULE PO SCH (08:53)
[2023-03-14] MEDS: polyethylene glycoL 3350 17 GM PACKET PO SCH (08:53)
[2023-03-14] MEDS: SENNA 8.6 MG TABLET PO SCH ×2 (08:53→20:29)
[2023-03-14] MEDS: MULTIVITAMIN W/MINERALS TABLET PO SCH (08:53)
--- NOTE | 2023-03-14 14:08 | PROVIDER PROGRESS NOTE ---
Assessment/Plan - Problem List (1) Major depressive disorder, recurrent, severe with psychotic symptoms Assessment/Plan: He was admitted with multiple falls. Increasing psychosis. To the point he became catatonic. He has now been here over 21. There has been remarkable and positive improvement. Most of the change came from resuming his Risperdal 3 mg twice daily, and adding a benzodiazepine for the catatonia. His psychiatrist let me know that they have been working on permanent placement for him. Its been slow going. He was living with his girlfriend/caregiver. Caregiver burden has been too difficult for her recently. We now have DPOA with his daughter. Daughter is amenable to having him placed. At this time we are awaiting for [facility] to negotiate a daily rate for his placement. (2) No able caregiver in household Assessment/Plan: Plan: Permanent placement is being worked on by our psychiatric social worker supervisor, working with his daughter who is now the DPOA 3. Catatonia has resolved after restarting Risperdal 3 mg twice daily, and adding a benzodiazepine. 4. Chronic psychosis still present. He is still hallucinating at times. But much more controllable. 5. Chronic kidney disease. Acute kidney injury has resolved in the face of rhabdomyolysis and many falls. His creat of 1.3-1.4 is his new baseline. Patient has been at baseline since approximately February 19. He has no longer needed IV fluids. 6. Type 2 diabetes mellitus, controlled. A1c was 6.3%. He is eating 100% of his meals. Metformin resumed February 22. Glucose is controlled. 7. Small rectal fissures or abrasions. Part of his psychosis is that aliens or Indians are shoving things in his rectum. He would use his fingers to manually disimpact himself. He gave himself the rectal cuts. He still says that those things that are tucked into his rectum and sometimes speak to him. But he is having less and less agitation with this. 8. Falls at home. Unclear why he kept on falling. He was not intoxicated. No seizures, no syncope. No orthostasis. Not under the influence of any recreational substance, however we suspect he got Suboxone patch haphazardly. His last prescription was written a year ago and it was ordered for 13 weeks. However there were still several patches available in a box that his caregiver brought from home. so we suspect he was intermittently oversedated on his buprenorphine patch, so we stopped the patch entirely and he has had no pain complaints. Here he is now walking with a walker and does so on a regular basis. He did have 1 fall in the hospital where he was leaning forward and he started going toward the floor and the nurse pushed him back. 9. Abrasions of multiple sites due to frequent falls. Photographs taken by nursing. These have all healed. 10. Poor hygiene on admission. He is taking showers here on a regular basis. 11. Abnormal EKG. Echo was done to make sure he did not have cor pulmonale and Echo was normal. 12. Left arm swelling. Duplex Doppler - February 18 ws neg 13. Right third toe infection. Resolved. Completed Keflex February 28. 14. Rhabdomyolysis This was from the falls and has resolved. - Current Meds Current Meds: Current Medications Generic Name Dose Route Start Last Admin Trade Name Freq PRN Reason Stop Dose Admin Acetaminophen 650 mg 02/15/23 19:57 03/09/23 16:19 Acetaminophen 325 Mg Tablet PO 650 mg Q4HR PRN Administration Pain or Fever > 38C (100.4F) Aspirin 81 mg 02/18/23 09:00 03/14/23 08:53 Aspirin Ec 81 Mg Tablet PO 81 mg DAILY ANGELA Administration Docusate Sodium 250 - 500 mg 02/26/23 17:00 03/14/23 08:53 Docusate Sodium 250 Mg Capsule PO 250 mg BID ANGELA Administration Duloxetine HCl 30 mg 02/15/23 13:30 03/14/23 08:53 Duloxetine 30 Mg Capsule PO 30 mg DAILY ANGELA Administration Fluticasone Propionate 1 sprays 02/17/23 09:00 03/14/23 08:53 Fluticasone Nasal [place] CRISTIAN 1 spray DAILY ANGELA Administration Haloperidol 2 mg 02/22/23 13:06 02/26/23 14:41 Haloperidol 5 Mg/Ml Vial IM 2 mg DAILY PRN Administration Agitation Ibuprofen 600 mg 02/15/23 19:57 03/03/23 20:57 Ibuprofen 600 Mg Tablet PO 600 mg Q6HR PRN Administration MINOR PAIN Lidocaine HCl 1 ml 02/23/23 13:54 02/26/23 13:59 Lidocaine Jelly 2% 6 Ml Jel.Pf.Shanda TOP 1 ml TID PRN Administration anal itching pain Lorazepam 0.5 mg 02/21/23 21:00 03/14/23 08:53 Lorazepam 0.5 Mg Tablet SL 0.5 mg BID ANGELA Administration Magnesium Oxide 400 mg 02/16/23 08:00 03/14/23 08:53 Magnesium Oxide 400 Mg Tablet PO 400 mg DAILYWM ANGELA Administration Metformin HCl 1,000 mg 02/22/23 17:00 03/14/23 08:53 Metformin 500 Mg Tablet PO 1,000 mg BIDWM ANGELA Administration Multivitamins/Minerals 1 tab 02/18/23 09:00 03/14/23 08:53 Multivitamin W/Minerals Tablet PO 1 tab DAILYWM ANGELA Administration Olanzapine 5 mg 02/23/23 21:00 03/14/23 08:53 Olanzapine Odt 5 Mg Tablet TL 5 mg BID ANGELA Administration Polyethylene Glycol 17 gm 02/17/23 18:00 03/14/23 08:53 Polyethylene Glycol 3350 17 Gm Packet PO 17 gm DAILY ANGELA Administration Senna 8.6 - 17.2 mg 02/26/23 17:00 03/14/23 08:53 Senna 8.6 Mg Tablet PO 8.6 mg BID ANGELA Administration - Lab Result Fish Bone Diagrams: 03/12/23 04:23 03/12/23 04:23 Subjective - Subjective Patient Reports: Resting Comfortably Objective Vital Signs: Vital Signs - 24 hr 03/13/23 03/14/23 20:33 07:45 Temperature 36.8 C 36.3 C L Heart Rate [ 93 54 L Brachial] Respiratory 18 18 Rate Blood Pressure 145/79 H 110/65 [Right Brachial artery] O2 Saturation 96 95 Oxygen O2 Source Room air I&O (Last 24 Hrs): Intake and Output Totals x24h 03/12/23 03/13/23 03/14/23 23:59 23:59 23:59 Intake Total 1440 720 730 Output Total 200 Balance 1440 520 730 General: Alert HEENT: Mucous membr. moist/pink Neck: Supple Neuro: Non Focal Cardiovascular: Regular rate Respiratory: No respiratory distress Extremities: No edema - Results Results: Laboratory Results WBC 10.0 x10^3/uL (4.8-10.8) 03/12/23 04:23 RBC 4.22 10^6/uL (4.70-6.10) L 03/12/23 04:23 Hgb 12.6 g/dL (14.0-18.0) L 03/12/23 04:23 Hct 37.4 % (42.0-52.0) L 03/12/23 04:23 MCV 88.6 fL (80.0-94.0) 03/12/23 04:23 MCH 29.9 pg (27.0-31.0) 03/12/23 04: MCHC 33.7 g/dL (32.0-36.0) 03/12/23 04: RDW 12.8 % (12.0-15.0) 03/12/23 04:23 Plt Count 309 10^3/uL (130-450) 03/12/23 04: MPV 9.6 fL (7.4-11.4) 03/12/23 04:23 Neut # (Auto) 4.1 10^3/uL (1.5-6.6) 03/05/23 05:20 Lymph # (Auto) 2.8 10^3/uL (1.5-3.5) 03/05/23 05:20 [place] # (Auto) 0.6 10^3/uL (0.0-1.0) 03/05/23 05:20 Eos # (Auto) 0.3 10^3/uL (0.0-0.7) 03/05/23 05:20 Baso # (Auto) 0.0 10^3/uL (0.0-0.1) 03/05/23 05:20 Absolute Nucleated RBC 0.00 x10^3/uL 03/05/23 05:20 Total Counted 100 02/14/23 03:15 Band Neuts % (Manual) 9 % (0-10) 02/14/23 03:15 Abnorm Lymph % (Manual) 0 % 02/14/23 03:15 Nucleated RBC % 0.0 /100WBC 03/05/23 05:20 Neutrophils # (Manual) 18.2 10^3/uL (1.5-6.6) H 02/14/23 03:15 Lymphocytes # (Manual) 1.0 10^3/uL (1.5-3.5) L 02/14/23 03:15 Monocytes # (Manual) 1.2 10^3/uL (0.0-1.0) H 02/14/23 03:15 Eosinophils # (Manual) 0.0 10^3/uL (0-0.7) 02/14/23 03:15 Basophils # (Manual) 0.0 10^3/uL (0-0.1) 02/14/23 03:15 Differential Comment MANUAL DIFFERENTIAL 02/14/23 03:15 Sodium 137 mmol/L (135-145) 03/12/23 04:23 Potassium 3.9 mmol/L (3.5-5.0) 03/12/23 04:23 Chloride 102 mmol/L (101-111) 03/12/23 04:23 Carbon Dioxide 27 mmol/L (21-32) 03/12/23 04:23 Anion Gap 8.0 (6-13) 03/12/23 04:23 BUN 29 mg/dL (6-20) H 03/12/23 04:23 Creatinine 1.3 mg/dL (0.6-1.2) H 03/12/23 04:23 Estimated GFR (MDRD) 57 (>89) L 03/12/23 04:23 Glucose 106 mg/dL (70-100) H 03/12/23 04:23 POC Whole Bld Glucose 103 mg/dL (70 - 100) H 03/14/23 07:38 Estimat Average Glucose 134 mg/dL (70-100) H 02/15/23 05:20 Hemoglobin A1c % 6.3 % (4.27-6.07) H 02/15/23 05:20 Calcium 9.5 mg/dL (8.5-10.3) 03/12/23 04:23 Magnesium 1.5 mg/dL (1.7-2.8) L 02/17/23 05:35 Total Bilirubin 0.3 mg/dL (0.2-1.0) 03/03/23 04:48 AST 25 IU/L (10-42) 03/03/23 04:48 ALT 33 IU/L (10-60) 03/03/23 04:48 Alkaline Phosphatase 77 IU/L (42-121) 03/03/23 04:48 Total Creatine Kinase 440 IU/L (22-269) H 02/23/23 14:10 CK-MB (CK-2) 265.9 ng/mL (0.6-6.3) H 02/14/23 03:15 Total Protein 7.2 g/dL (6.7-8.2) 03/03/23 04:48 Albumin 4.0 g/dL (3.2-5.5) 03/03/23 04:48 Globulin 3.2 g/dL (2.1-4.2) 03/03/23 04:48 Albumin/Globulin Ratio 1.3 (1.0-2.2) 03/03/23 04:48 Lipase 34 U/L (22-51) 02/14/23 03:15 TSH 1.21 uIU/mL (0.34-5.60) 02/14/23 03:15 Urine Color YELLOW 02/18/23 15:10 Urine Clarity CLEAR (CLEAR) 02/18/23 15:10 Urine pH 5.5 PH (5.0-7.5) 02/18/23 15:10 Ur Specific [place] 1.020 (1.002-1.030) 02/18/23 15:10 Urine Protein NEGATIVE mg/dL (NEGATIVE) 02/18/23 15:10 Urine Glucose (UA) NEGATIVE mg/dL (NEGATIVE) 02/18/23 15:10 Urine Ketones NEGATIVE mg/dL (NEGATIVE) 02/18/23 15:10 Urine Occult Blood MODERATE (NEGATIVE) H 02/18/23 15:10 Urine Nitrite NEGATIVE (NEGATIVE) 02/18/23 15:10 Urine Bilirubin NEGATIVE (NEGATIVE) 02/18/23 15:10 Urine Urobilinogen 0.2 (NORMAL) E.U./dL (NORMAL) 02/18/23 15:10 Ur Leukocyte Esterase TRACE (NEGATIVE) H 02/18/23 15:10 Urine RBC 11-25 /HPF (0-5) H 02/18/23 15:10 Urine WBC 6-10 /HPF (0-3) H 02/18/23 15:10 Ur Squamous Epith Cells RARE Squamous (<= Few) 02/18/23 15:10 Urine Bacteria None Seen /HPF (None Seen) 02/18/23 15:10 Urine Sperm PRESENT 02/18/23 15:10 Ur Microscopic Review INDICATED 02/14/23 10:34 Urine Culture Comments INDICATED 02/18/23 15:10 Urine Opiates Screen NEGATIVE (NEGATIVE) 02/14/23 10:34 Ur Oxycodone Screen NEGATIVE (NEGATIVE) 02/14/23 10:34 Urine Methadone Screen NEGATIVE (NEGATIVE) 02/14/23 10:34 Ur Propoxyphene Screen NEGATIVE (NEGATIVE) 02/14/23 10:34 Ur Barbiturates Screen NEGATIVE (NEGATIVE) 02/14/23 10:34 Ur Tricyclics Screen NEGATIVE (NEGATIVE) 02/14/23 10:34 Ur Phencyclidine Scrn NEGATIVE (NEGATIVE) 02/14/23 10:34 Ur Amphetamine Screen NEGATIVE (NEGATIVE) 02/14/23 10:34 U Methamphetamines Scrn NEGATIVE (NEGATIVE) 02/14/23 10:34 U Benzodiazepines Scrn NEGATIVE (NEGATIVE) 02/14/23 10:34 Urine Cocaine Screen NEGATIVE (NEGATIVE) 02/14/23 10:34 U Cannabinoids Screen POSITIVE (NEGATIVE) H 02/14/23 10:34 Ethyl Alcohol < 5.0 mg/dL 02/14/23 03:15
--- NOTE | 2023-03-15 10:53 | PROVIDER PROGRESS NOTE ---
Assessment/Plan - Problem List (1) Major depressive disorder, recurrent, severe with psychotic symptoms Assessment/Plan: He was admitted with multiple falls. Increasing psychosis. To the point he became catatonic. He has now been here over 21. There has been remarkable and positive improvement. Most of the change came from resuming his Risperdal 3 mg twice daily, and adding a benzodiazepine for the catatonia. His psychiatrist let me know that they have been working on permanent placement for him. Its been slow going. He was living with his girlfriend/caregiver. Caregiver burden has been too difficult for her recently. We now have DPOA with his daughter. Daughter is amenable to having him placed. At this time we are awaiting for [facility] to negotiate a daily rate for his placement. (2) No able caregiver in household Assessment/Plan: Plan: Permanent placement is being worked on by our drug abuse social worker, working with his daughter who is now the DPOA (3) Chronic psychosis still present. He is still hallucinating at times. But much more controllable. (4) Chronic kidney disease. Acute kidney injury has resolved in the face of rhabdomyolysis and many falls. His creat of 1.3-1.4 is his new baseline. Patient has been at baseline since approximately February 19. He has no longer needed IV fluids. (5) Type 2 diabetes mellitus, controlled. A1c was 6.3%. He is eating 100% of his meals. Metformin resumed February 22. Glucose is controlled. We stopped fingerstick checks at [facility] several days ago. (6) Rectal fissures or abrasions. Part of his psychosis is that aliens or Indians are shoving things in his rectum. He would use his fingers to manually disimpact himself. He gave himself the rectal cuts. He still says that those things that are tucked into his rectum and sometimes speak to him. But he is having less and less agitation with this. (7) Falls at home. Unclear why he kept on falling. He was not intoxicated. No seizures, no syncope. No orthostasis. Not under the influence of any recreational substance, however we suspect he got Suboxone patch haphazardly. His last prescription was written a year ago and it was ordered for 13 weeks. However there were still several patches available in a box that his caregiver brought from home. so we suspect he was intermittently oversedated on his buprenorphine patch, so we stopped the patch entirely and he has had no pain complaints. Here he is now walking with a walker and does so on a regular basis. He did have 1 fall in the hospital where he was leaning forward and he started going toward the floor and the nurse pushed him back. (8) Abrasions of multiple sites due to frequent falls. Photographs taken by nursing. These have all healed. (9) Poor hygiene on admission. He is taking showers here on a regular basis. (10) Abnormal EKG. Echo was done to make sure he did not have cor pulmonale and Echo was normal. (11) Left arm swelling. Duplex Doppler - February 18 ws neg (12) Right third toe infection. Resolved. Completed Keflex February 28. (13) Rhabdomyolysis This was from the falls and has resolved. (14) Catatonia has resolved after restarting Risperdal 3 mg twice daily, and adding a Benzodiazepine. - Current Meds Current Meds: Current Medications Generic Name Dose Route Start Last Admin Trade Name Jyoti PRN Reason Stop Dose Admin Acetaminophen 650 mg 02/15/23 19:57 03/09/23 16:19 Acetaminophen 325 Mg Tablet PO 650 mg Q4HR PRN Administration Pain or Fever > 38C (100.4F) Aspirin 81 mg 02/18/23 09:00 03/14/23 08:53 Aspirin Ec 81 Mg Tablet PO 81 mg DAILY ANGELA Administration Docusate Sodium 250 - 500 mg 02/26/23 17:00 03/14/23 20:29 Docusate Sodium 250 Mg Capsule PO 500 mg BID ANGELA Administration Duloxetine HCl 30 mg 02/15/23 13:30 03/14/23 08:53 Duloxetine 30 Mg Capsule PO 30 mg DAILY ANGELA Administration Fluticasone Propionate 1 sprays 02/17/23 09:00 03/14/23 08:53 Fluticasone Nasal [place] CRISTIAN 1 spray DAILY ANGELA Administration Haloperidol 2 mg 02/22/23 13:06 02/26/23 14:41 Haloperidol 5 Mg/Ml Vial IM 2 mg DAILY PRN Administration Agitation Ibuprofen 600 mg 02/15/23 19:57 03/03/23 20:57 Ibuprofen 600 Mg Tablet PO 600 mg Q6HR PRN Administration MINOR PAIN Lidocaine HCl 1 ml 02/23/23 13:54 02/26/23 13:59 Lidocaine Jelly 2% 6 Ml Jel.Pf.Shanda TOP 1 ml TID PRN Administration anal itching pain Lorazepam 0.5 mg 02/21/23 21:00 03/14/23 20:30 Lorazepam 0.5 Mg Tablet SL 0.5 mg BID ANGELA Administration Magnesium Oxide 400 mg 02/16/23 08:00 03/14/23 08:53 Magnesium Oxide 400 Mg Tablet PO 400 mg DAILYWM ANGELA Administration Metformin HCl 1,000 mg 02/22/23 17:00 03/14/23 16:33 Metformin 500 Mg Tablet PO 1,000 mg BIDWM ANGELA Administration Multivitamins/Minerals 1 tab 02/18/23 09:00 03/14/23 08:53 Multivitamin W/Minerals Tablet PO 1 tab DAILYWM ANGELA Administration Olanzapine 5 mg 02/23/23 21:00 03/14/23 20:30 Olanzapine Odt 5 Mg Tablet TL 5 mg BID ANGELA Administration Polyethylene Glycol 17 gm 02/17/23 18:00 03/14/23 08:53 Polyethylene Glycol 3350 17 Gm Packet PO 17 gm DAILY ANGELA Administration Senna 8.6 - 17.2 mg 02/26/23 17:00 03/14/23 20:29 Senna 8.6 Mg Tablet PO 17.2 mg BID ANGELA Administration - Lab Result Fish Bone Diagrams: 03/12/23 04:23 03/12/23 04:23 Subjective - Subjective Patient Reports: Resting Comfortably, No Complaints Objective Vital Signs: Vital Signs - 24 hr 03/14/23 03/15/23 16:15 08:14 Temperature 36.9 C 36.9 C Heart Rate [ 101 H 68 Brachial] Respiratory 16 12 Rate Blood Pressure 118/86 H 129/81 H [Right Brachial artery] O2 Saturation 96 94 Oxygen O2 Source Room air I&O (Last 24 Hrs): Intake and Output Totals x24h 03/13/23 03/14/23 03/15/23 23:59 23:59 23:59 Intake Total 720 1210 240 Output Total 200 Balance 520 1210 240 General: Alert HEENT: Mucous membr. moist/pink Neck: Supple Neuro: Non Focal Cardiovascular: Regular rate Respiratory: No respiratory distress Abdomen: No tenderness Extremities: No edema - Results Results: Laboratory Results WBC 10.0 x10^3/uL (4.8-10.8) 03/12/23 04: RBC 4.22 10^6/uL (4.70-6.10) L 03/12/23 04: Hgb 12.6 g/dL (14.0-18.0) L 03/12/23 04: Hct 37.4 % (42.0-52.0) L 03/12/23 04:23 MCV 88.6 fL (80.0-94.0) 03/12/23 04: MCH 29.9 pg (27.0-31.0) 03/12/23 04: MCHC 33.7 g/dL (32.0-36.0) 03/12/23 04: RDW 12.8 % (12.0-15.0) 03/12/23 04: Plt Count 309 10^3/uL (130-450) 03/12/23 04: MPV 9.6 fL (7.4-11.4) 03/12/23 04: Neut # (Auto) 4.1 10^3/uL (1.5-6.6) 03/05/23 05:20 Lymph # (Auto) 2.8 10^3/uL (1.5-3.5) 03/05/23 05:20 [place] # (Auto) 0.6 10^3/uL (0.0-1.0) 03/05/23 05:20 Eos # (Auto) 0.3 10^3/uL (0.0-0.7) 03/05/23 05:20 Baso # (Auto) 0.0 10^3/uL (0.0-0.1) 03/05/23 05:20 Absolute Nucleated RBC 0.00 x10^3/uL 03/05/23 05:20 Total Counted 100 02/14/23 03:15 Band Neuts % (Manual) 9 % (0-10) 02/14/23 03:15 Abnorm Lymph % (Manual) 0 % 02/14/23 03:15 Nucleated RBC % 0.0 /100WBC 03/05/23 05:20 Neutrophils # (Manual) 18.2 10^3/uL (1.5-6.6) H 02/14/23 03:15 Lymphocytes # (Manual) 1.0 10^3/uL (1.5-3.5) L 02/14/23 03:15 Monocytes # (Manual) 1.2 10^3/uL (0.0-1.0) H 02/14/23 03:15 Eosinophils # (Manual) 0.0 10^3/uL (0-0.7) 02/14/23 03:15 Basophils # (Manual) 0.0 10^3/uL (0-0.1) 02/14/23 03:15 Differential Comment MANUAL DIFFERENTIAL 02/14/23 03:15 Sodium 137 mmol/L (135-145) 03/12/23 04:23 Potassium 3.9 mmol/L (3.5-5.0) 03/12/23 04:23 Chloride 102 mmol/L (101-111) 03/12/23 04:23 Carbon Dioxide 27 mmol/L (21-32) 03/12/23 04:23 Anion Gap 8.0 (6-13) 03/12/23 04:23 BUN 29 mg/dL (6-20) H 03/12/23 04:23 Creatinine 1.3 mg/dL (0.6-1.2) H 03/12/23 04:23 Estimated GFR (MDRD) 57 (>89) L 03/12/23 04:23 Glucose 106 mg/dL (70-100) H 03/12/23 04:23 POC Whole Bld Glucose 103 mg/dL (70 - 100) H 03/14/23 07:38 Estimat Average Glucose 134 mg/dL (70-100) H 02/15/23 05:20 Hemoglobin A1c % 6.3 % (4.27-6.07) H 02/15/23 05:20 Calcium 9.5 mg/dL (8.5-10.3) 03/12/23 04:23 Magnesium 1.5 mg/dL (1.7-2.8) L 02/17/23 05:35 Total Bilirubin 0.3 mg/dL (0.2-1.0) 03/03/23 04:48 AST 25 IU/L (10-42) 03/03/23 04:48 ALT 33 IU/L (10-60) 03/03/23 04:48 Alkaline Phosphatase 77 IU/L (42-121) 03/03/23 04:48 Total Creatine Kinase 440 IU/L (22-269) H 02/23/23 14:10 CK-MB (CK-2) 265.9 ng/mL (0.6-6.3) H 02/14/23 03:15 Total Protein 7.2 g/dL (6.7-8.2) 03/03/23 04:48 Albumin 4.0 g/dL (3.2-5.5) 03/03/23 04:48 Globulin 3.2 g/dL (2.1-4.2) 03/03/23 04:48 Albumin/Globulin Ratio 1.3 (1.0-2.2) 03/03/23 04:48 Lipase 34 U/L (22-51) 02/14/23 03:15 TSH 1.21 uIU/mL (0.34-5.60) 02/14/23 03:15 Urine Color YELLOW 02/18/23 15:10 Urine Clarity CLEAR (CLEAR) 02/18/23 15:10 Urine pH 5.5 PH (5.0-7.5) 02/18/23 15:10 Ur Specific [place] 1.020 (1.002-1.030) 02/18/23 15:10 Urine Protein NEGATIVE mg/dL (NEGATIVE) 02/18/23 15:10 Urine Glucose (UA) NEGATIVE mg/dL (NEGATIVE) 02/18/23 15:10 Urine Ketones NEGATIVE mg/dL (NEGATIVE) 02/18/23 15:10 Urine Occult Blood MODERATE (NEGATIVE) H 02/18/23 15:10 Urine Nitrite NEGATIVE (NEGATIVE) 02/18/23 15:10 Urine Bilirubin NEGATIVE (NEGATIVE) 02/18/23 15:10 Urine Urobilinogen 0.2 (NORMAL) E.U./dL (NORMAL) 02/18/23 15:10 Ur Leukocyte Esterase TRACE (NEGATIVE) H 02/18/23 15:10 Urine RBC 11-25 /HPF (0-5) H 02/18/23 15:10 Urine WBC 6-10 /HPF (0-3) H 02/18/23 15:10 Ur Squamous Epith Cells RARE Squamous (<= Few) 02/18/23 15:10 Urine Bacteria None Seen /HPF (None Seen) 02/18/23 15:10 Urine Sperm PRESENT 02/18/23 15:10 Ur Microscopic Review INDICATED 02/14/23 10:34 Urine Culture Comments INDICATED 02/18/23 15:10 Urine Opiates Screen NEGATIVE (NEGATIVE) 02/14/23 10:34 Ur Oxycodone Screen NEGATIVE (NEGATIVE) 02/14/23 10:34 Urine Methadone Screen NEGATIVE (NEGATIVE) 02/14/23 10:34 Ur Propoxyphene Screen NEGATIVE (NEGATIVE) 02/14/23 10:34 Ur Barbiturates Screen NEGATIVE (NEGATIVE) 02/14/23 10:34 Ur Tricyclics Screen NEGATIVE (NEGATIVE) 02/14/23 10:34 Ur Phencyclidine Scrn NEGATIVE (NEGATIVE) 02/14/23 10:34 Ur Amphetamine Screen NEGATIVE (NEGATIVE) 02/14/23 10:34 U Methamphetamines Scrn NEGATIVE (NEGATIVE) 02/14/23 10:34 U Benzodiazepines Scrn NEGATIVE (NEGATIVE) 02/14/23 10:34 Urine Cocaine Screen NEGATIVE (NEGATIVE) 02/14/23 10:34 U Cannabinoids Screen POSITIVE (NEGATIVE) H 02/14/23 10:34 Ethyl Alcohol < 5.0 mg/dL 02/14/23 03:15
[2023-03-15] MEDS: OLANZapine ODT 5 MG TABLET TL SCH ×2 (11:32→20:23)
[2023-03-15] MEDS: LORazepam 0.5 MG TABLET SL SCH ×2 (11:32→20:23)
[2023-03-15] MEDS: metFORMIN 500 MG TABLET PO SCH ×2 (11:32→16:36)
[2023-03-15] MEDS: DULoxetine 30 MG CAPSULE PO SCH (11:32)
[2023-03-15] MEDS: MAGNESIUM OXIDE 400 MG TABLET PO SCH (11:33)
[2023-03-15] MEDS: FLUTICASONE NASAL SPRAY NAS SCH (13:43)
[2023-03-15] MEDS: DOCUSATE SODIUM 250 MG CAPSULE PO SCH ×2 (13:43→20:23)
[2023-03-15] MEDS: MULTIVITAMIN W/MINERALS TABLET PO SCH (13:43)
[2023-03-15] MEDS: ASPIRIN EC 81 MG TABLET PO SCH (13:43)
[2023-03-15] MEDS: polyethylene glycoL 3350 17 GM PACKET PO SCH (13:43)
[2023-03-15] MEDS: SENNA 8.6 MG TABLET PO SCH ×2 (13:44→20:23)
[2023-03-16] MEDS: metFORMIN 500 MG TABLET PO SCH ×2 (09:01→17:29)
[2023-03-16] MEDS: MULTIVITAMIN W/MINERALS TABLET PO SCH (09:01)
[2023-03-16] MEDS: OLANZapine ODT 5 MG TABLET TL SCH ×2 (09:01→20:52)
[2023-03-16] MEDS: DOCUSATE SODIUM 250 MG CAPSULE PO SCH ×2 (09:01→20:51)
[2023-03-16] MEDS: DULoxetine 30 MG CAPSULE PO SCH (09:01)
[2023-03-16] MEDS: LORazepam 0.5 MG TABLET SL SCH ×2 (09:01→20:52)
[2023-03-16] MEDS: ASPIRIN EC 81 MG TABLET PO SCH (09:01)
[2023-03-16] MEDS: MAGNESIUM OXIDE 400 MG TABLET PO SCH (09:01)
[2023-03-16] MEDS: FLUTICASONE NASAL SPRAY NAS SCH (09:04)
[2023-03-16] MEDS: SENNA 8.6 MG TABLET PO SCH ×2 (09:05→20:52)
[2023-03-16] MEDS: polyethylene glycoL 3350 17 GM PACKET PO SCH (09:06)
--- NOTE | 2023-03-16 16:26 | PROVIDER PROGRESS NOTE ---
Assessment/Plan - Problem List (1) Major depressive disorder, recurrent, severe with psychotic symptoms Assessment/Plan: He was admitted with multiple falls. Increasing psychosis. To the point he became catatonic. He has now been here over 21. There has been remarkable and positive improvement. Most of the change came from resuming his Risperdal 3 mg twice daily, and adding a benzodiazepine for the catatonia. His psychiatrist let me know that they have been working on permanent placement for him. Its been slow going. He was living with his girlfriend/caregiver. Caregiver burden has been too difficult for her recently. We now have DPOA with his daughter. Daughter is amenable to having him placed. At this time we are awaiting for [facility] to negotiate a daily rate for his placement. (2) No able caregiver in household Assessment/Plan: Plan: Permanent placement is being worked on by our social worker aide, working with his daughter who is now the DPOA (3) Chronic psychosis still present. He is still hallucinating at times. But much more controllable. (4) Chronic kidney disease. Acute kidney injury has resolved in the face of rhabdomyolysis and many falls. His creat of 1.3-1.4 is his new baseline. Patient has been at baseline since approximately February 19. He has no longer needed IV fluids. (5) Type 2 diabetes mellitus, controlled. A1c was 6.3%. He is eating 100% of his meals. Metformin resumed February 22. Glucose is controlled. We stopped fingerstick checks at [facility] several days ago. (6) Rectal fissures or abrasions. Part of his psychosis is that aliens or Indians are shoving things in his rectum. He would use his fingers to manually disimpact himself. He gave himself the rectal cuts. He still says that those things that are tucked into his rectum and sometimes speak to him. But he is having less and less agitation with this. (7) Falls at home. Unclear why he kept on falling. He was not intoxicated. No seizures, no syncope. No orthostasis. Not under the influence of any recreational substance, however we suspect he got Suboxone patch haphazardly. His last prescription was written a year ago and it was ordered for 13 weeks. However there were still several patches available in a box that his caregiver brought from home. so we suspect he was intermittently oversedated on his buprenorphine patch, so we stopped the patch entirely and he has had no pain complaints. Here he is now walking with a walker and does so on a regular basis. He did have 1 fall in the hospital where he was leaning forward and he started going toward the floor and the nurse pushed him back. (8) Abrasions of multiple sites due to frequent falls. Photographs taken by nursing. These have all healed. (9) Poor hygiene on admission. He is taking showers here on a regular basis. (10) Abnormal EKG. Echo was done to make sure he did not have cor pulmonale and Echo was normal. (11) Left arm swelling. Duplex Doppler - February 18 ws neg (12) Right third toe infection. Resolved. Completed Keflex February 28. (13) Rhabdomyolysis This was from the falls and has resolved. (14) Catatonia has resolved after restarting Risperdal 3 mg twice daily, and adding a Benzodiazepine. - Current Meds Current Meds: Current Medications Generic Name Dose Route Start Last Admin Trade Name Jyoti PRN Reason Stop Dose Admin Acetaminophen 650 mg 02/15/23 19:57 03/09/23 16:19 Acetaminophen 325 Mg Tablet PO 650 mg Q4HR PRN Administration Pain or Fever > 38C (100.4F) Aspirin 81 mg 02/18/23 09:00 03/16/23 09:01 Aspirin Ec 81 Mg Tablet PO 81 mg DAILY ANGELA Administration Docusate Sodium 250 - 500 mg 02/26/23 17:00 03/16/23 09:01 Docusate Sodium 250 Mg Capsule PO 250 mg BID ANGELA Administration Duloxetine HCl 30 mg 02/15/23 13:30 03/16/23 09:01 Duloxetine 30 Mg Capsule PO 30 mg DAILY ANGELA Administration Fluticasone Propionate 1 sprays 02/17/23 09:00 03/16/23 09:04 Fluticasone Nasal [place] CRISTIAN 1 spray DAILY ANGELA Administration Haloperidol 2 mg 02/22/23 13:06 02/26/23 14:41 Haloperidol 5 Mg/Ml Vial IM 2 mg DAILY PRN Administration Agitation Ibuprofen 600 mg 02/15/23 19:57 03/03/23 20:57 Ibuprofen 600 Mg Tablet PO 600 mg Q6HR PRN Administration MINOR PAIN Lidocaine HCl 1 ml 02/23/23 13:54 02/26/23 13:59 Lidocaine Jelly 2% 6 Ml Jel.Pf.Shanda TOP 1 ml TID PRN Administration anal itching pain Lorazepam 0.5 mg 02/21/23 21:00 03/16/23 09:01 Lorazepam 0.5 Mg Tablet SL 0.5 mg BID ANGELA Administration Magnesium Oxide 400 mg 02/16/23 08:00 03/16/23 09:01 Magnesium Oxide 400 Mg Tablet PO 400 mg DAILYWM ANGELA Administration Metformin HCl 1,000 mg 02/22/23 17:00 03/16/23 09:01 Metformin 500 Mg Tablet PO 1,000 mg BIDWM ANGELA Administration Multivitamins/Minerals 1 tab 02/18/23 09:00 03/16/23 09:01 Multivitamin W/Minerals Tablet PO 1 tab DAILYWM ANGELA Administration Olanzapine 5 mg 02/23/23 21:00 03/16/23 09:01 Olanzapine Odt 5 Mg Tablet TL 5 mg BID ANGELA Administration Polyethylene Glycol 17 gm 02/17/23 18:00 03/16/23 09:06 Polyethylene Glycol 3350 17 Gm Packet PO 17 gm DAILY ANGELA Administration Senna 8.6 - 17.2 mg 02/26/23 17:00 03/16/23 09:05 Senna 8.6 Mg Tablet PO 8.6 mg BID ANGELA Administration - Lab Result Fish Bone Diagrams: 03/12/23 04:23 03/12/23 04:23 Subjective - Subjective Patient Reports: No Complaints Objective Vital Signs: Vital Signs - 24 hr 03/16/23 08:03 Temperature 36.3 C L Heart Rate [ 105 H Brachial] Respiratory 16 Rate Blood Pressure 147/90 H [Right Brachial artery] O2 Saturation 97 Oxygen O2 Source Room air I&O (Last 24 Hrs): Intake and Output Totals x24h 03/14/23 03/15/23 03/16/23 23:59 23:59 23:59 Intake Total 6602 001 1355 Balance 4647 446 9070 General: Alert HEENT: Mucous membr. moist/pink Neck: Supple Neuro: Alert Cardiovascular: Regular rate Respiratory: No respiratory distress Extremities: No clubbing, No edema - Results Results: Laboratory Results WBC 10.0 x10^3/uL (4.8-10.8) 03/12/23 04:23 RBC 4.22 10^6/uL (4.70-6.10) L 03/12/23 04: Hgb 12.6 g/dL (14.0-18.0) L 03/12/23 04: Hct 37.4 % (42.0-52.0) L 03/12/23 04:23 MCV 88.6 fL (80.0-94.0) 03/12/23 04:23 MCH 29.9 pg (27.0-31.0) 03/12/23 04: MCHC 33.7 g/dL (32.0-36.0) 03/12/23 04: RDW 12.8 % (12.0-15.0) 03/12/23 04: Plt Count 309 10^3/uL (130-450) 03/12/23 04: MPV 9.6 fL (7.4-11.4) 03/12/23 04: Neut # (Auto) 4.1 10^3/uL (1.5-6.6) 03/05/23 05:20 Lymph # (Auto) 2.8 10^3/uL (1.5-3.5) 03/05/23 05:20 [place] # (Auto) 0.6 10^3/uL (0.0-1.0) 03/05/23 05:20 Eos # (Auto) 0.3 10^3/uL (0.0-0.7) 03/05/23 05:20 Baso # (Auto) 0.0 10^3/uL (0.0-0.1) 03/05/23 05:20 Absolute Nucleated RBC 0.00 x10^3/uL 03/05/23 05:20 Total Counted 100 02/14/23 03:15 Band Neuts % (Manual) 9 % (0-10) 02/14/23 03:15 Abnorm Lymph % (Manual) 0 % 02/14/23 03:15 Nucleated RBC % 0.0 /100WBC 03/05/23 05:20 Neutrophils # (Manual) 18.2 10^3/uL (1.5-6.6) H 02/14/23 03:15 Lymphocytes # (Manual) 1.0 10^3/uL (1.5-3.5) L 02/14/23 03:15 Monocytes # (Manual) 1.2 10^3/uL (0.0-1.0) H 02/14/23 03:15 Eosinophils # (Manual) 0.0 10^3/uL (0-0.7) 02/14/23 03:15 Basophils # (Manual) 0.0 10^3/uL (0-0.1) 02/14/23 03:15 Differential Comment MANUAL DIFFERENTIAL 02/14/23 03:15 Sodium 137 mmol/L (135-145) 03/12/23 04:23 Potassium 3.9 mmol/L (3.5-5.0) 03/12/23 04:23 Chloride 102 mmol/L (101-111) 03/12/23 04:23 Carbon Dioxide 27 mmol/L (21-32) 03/12/23 04:23 Anion Gap 8.0 (6-13) 03/12/23 04:23 BUN 29 mg/dL (6-20) H 03/12/23 04:23 Creatinine 1.3 mg/dL (0.6-1.2) H 03/12/23 04:23 Estimated GFR (MDRD) 57 (>89) L 03/12/23 04:23 Glucose 106 mg/dL (70-100) H 03/12/23 04:23 POC Whole Bld Glucose 103 mg/dL (70 - 100) H 03/14/23 07:38 Estimat Average Glucose 134 mg/dL (70-100) H 02/15/23 05:20 Hemoglobin A1c % 6.3 % (4.27-6.07) H 02/15/23 05:20 Calcium 9.5 mg/dL (8.5-10.3) 03/12/23 04:23 Magnesium 1.5 mg/dL (1.7-2.8) L 02/17/23 05:35 Total Bilirubin 0.3 mg/dL (0.2-1.0) 03/03/23 04:48 AST 25 IU/L (10-42) 03/03/23 04:48 ALT 33 IU/L (10-60) 03/03/23 04:48 Alkaline Phosphatase 77 IU/L (42-121) 03/03/23 04:48 Total Creatine Kinase 440 IU/L (22-269) H 02/23/23 14:10 CK-MB (CK-2) 265.9 ng/mL (0.6-6.3) H 02/14/23 03:15 Total Protein 7.2 g/dL (6.7-8.2) 03/03/23 04:48 Albumin 4.0 g/dL (3.2-5.5) 03/03/23 04:48 Globulin 3.2 g/dL (2.1-4.2) 03/03/23 04:48 Albumin/Globulin Ratio 1.3 (1.0-2.2) 03/03/23 04:48 Lipase 34 U/L (22-51) 02/14/23 03:15 TSH 1.21 uIU/mL (0.34-5.60) 02/14/23 03:15 Urine Color YELLOW 02/18/23 15:10 Urine Clarity CLEAR (CLEAR) 02/18/23 15:10 Urine pH 5.5 PH (5.0-7.5) 02/18/23 15:10 Ur Specific [place] 1.020 (1.002-1.030) 02/18/23 15:10 Urine Protein NEGATIVE mg/dL (NEGATIVE) 02/18/23 15:10 Urine Glucose (UA) NEGATIVE mg/dL (NEGATIVE) 02/18/23 15:10 Urine Ketones NEGATIVE mg/dL (NEGATIVE) 02/18/23 15:10 Urine Occult Blood MODERATE (NEGATIVE) H 02/18/23 15:10 Urine Nitrite NEGATIVE (NEGATIVE) 02/18/23 15:10 Urine Bilirubin NEGATIVE (NEGATIVE) 02/18/23 15:10 Urine Urobilinogen 0.2 (NORMAL) E.U./dL (NORMAL) 02/18/23 15:10 Ur Leukocyte Esterase TRACE (NEGATIVE) H 02/18/23 15:10 Urine RBC 11-25 /HPF (0-5) H 02/18/23 15:10 Urine WBC 6-10 /HPF (0-3) H 02/18/23 15:10 Ur Squamous Epith Cells RARE Squamous (<= Few) 02/18/23 15:10 Urine Bacteria None Seen /HPF (None Seen) 02/18/23 15:10 Urine Sperm PRESENT 02/18/23 15:10 Ur Microscopic Review INDICATED 02/14/23 10:34 Urine Culture Comments INDICATED 02/18/23 15:10 Urine Opiates Screen NEGATIVE (NEGATIVE) 02/14/23 10:34 Ur Oxycodone Screen NEGATIVE (NEGATIVE) 02/14/23 10:34 Urine Methadone Screen NEGATIVE (NEGATIVE) 02/14/23 10:34 Ur Propoxyphene Screen NEGATIVE (NEGATIVE) 02/14/23 10:34 Ur Barbiturates Screen NEGATIVE (NEGATIVE) 02/14/23 10:34 Ur Tricyclics Screen NEGATIVE (NEGATIVE) 02/14/23 10:34 Ur Phencyclidine Scrn NEGATIVE (NEGATIVE) 02/14/23 10:34 Ur Amphetamine Screen NEGATIVE (NEGATIVE) 02/14/23 10:34 U Methamphetamines Scrn NEGATIVE (NEGATIVE) 02/14/23 10:34 U Benzodiazepines Scrn NEGATIVE (NEGATIVE) 02/14/23 10:34 Urine Cocaine Screen NEGATIVE (NEGATIVE) 02/14/23 10:34 U Cannabinoids Screen POSITIVE (NEGATIVE) H 02/14/23 10:34 Ethyl Alcohol < 5.0 mg/dL 02/14/23 03:15
[2023-03-16] MEDS: ACETAMINOPHEN 325 MG TABLET PO PRN (17:31)
[2023-03-17] MEDS: DOCUSATE SODIUM 250 MG CAPSULE PO SCH ×2 (08:31→21:34)
[2023-03-17] MEDS: MULTIVITAMIN W/MINERALS TABLET PO SCH (08:31)
[2023-03-17] MEDS: LORazepam 0.5 MG TABLET SL SCH ×2 (08:31→21:33)
[2023-03-17] MEDS: DULoxetine 30 MG CAPSULE PO SCH (08:31)
[2023-03-17] MEDS: OLANZapine ODT 5 MG TABLET TL SCH ×2 (08:31→21:33)
[2023-03-17] MEDS: MAGNESIUM OXIDE 400 MG TABLET PO SCH (08:31)
[2023-03-17] MEDS: ASPIRIN EC 81 MG TABLET PO SCH (08:32)
[2023-03-17] MEDS: polyethylene glycoL 3350 17 GM PACKET PO SCH (08:32)
[2023-03-17] MEDS: SENNA 8.6 MG TABLET PO SCH ×2 (08:32→21:34)
[2023-03-17] MEDS: FLUTICASONE NASAL SPRAY NAS SCH (08:33)
[2023-03-17] MEDS: ACETAMINOPHEN 325 MG TABLET PO PRN (08:39)
[2023-03-17] MEDS: metFORMIN 500 MG TABLET PO SCH ×2 (09:33→16:49)
--- NOTE | 2023-03-17 20:03 | PROVIDER PROGRESS NOTE ---
Assessment/Plan - Problem List (1) Major depressive disorder, recurrent, severe with psychotic symptoms Assessment/Plan: He was admitted with multiple falls. Increasing psychosis. To the point he became catatonic. He has now been here over 21. There has been remarkable and positive improvement. Most of the change came from resuming his Risperdal 3 mg twice daily, and adding a benzodiazepine for the catatonia. His psychiatrist let me know that they have been working on permanent placement for him. Its been slow going. He was living with his girlfriend/caregiver. Caregiver burden has been too difficult for her recently. We now have DPOA with his daughter. Daughter is amenable to having him placed. At this time we are awaiting for [facility] to negotiate a daily rate for his placement. (2) No able caregiver in household Assessment/Plan: Plan: Permanent placement is being worked on by our perinatal social worker, working with his daughter who is now the DPOA (3) Chronic psychosis still present. He is still hallucinating at times. But much more controllable. (4) Chronic kidney disease. Acute kidney injury has resolved in the face of rhabdomyolysis and many falls. His creat of 1.3-1.4 is his new baseline. Patient has been at baseline since approximately February 19. He has no longer needed IV fluids. (5) Type 2 diabetes mellitus, controlled. A1c was 6.3%. He is eating 100% of his meals. Metformin resumed February 22. Glucose is controlled. We stopped fingerstick checks at [facility] several days ago. (6) Rectal fissures or abrasions. Part of his psychosis is that aliens or Indians are shoving things in his rectum. He would use his fingers to manually disimpact himself. He gave himself the rectal cuts. He still says that those things that are tucked into his rectum and sometimes speak to him. But he is having less and less agitation with this. (7) Falls at home. Unclear why he kept on falling. He was not intoxicated. No seizures, no syncope. No orthostasis. Not under the influence of any recreational substance, however we suspect he got Suboxone patch haphazardly. His last prescription was written a year ago and it was ordered for 13 weeks. However there were still several patches available in a box that his caregiver brought from home. so we suspect he was intermittently oversedated on his buprenorphine patch, so we stopped the patch entirely and he has had no pain complaints. Here he is now walking with a walker and does so on a regular basis. He did have 1 fall in the hospital where he was leaning forward and he started going toward the floor and the nurse pushed him back. (8) Abrasions of multiple sites due to frequent falls. Photographs taken by nursing. These have all healed. (9) Poor hygiene on admission. He is taking showers here on a regular basis. (10) Abnormal EKG. Echo was done to make sure he did not have cor pulmonale and Echo was normal. (11) Left arm swelling. Duplex Doppler - February 18 ws neg (12) Right third toe infection. Resolved. Completed Keflex February 28. (13) Rhabdomyolysis This was from the falls and has resolved. (14) Catatonia has resolved after restarting Risperdal 3 mg twice daily, and adding a Benzodiazepine. - Current Meds Current Meds: Current Medications Generic Name Dose Route Start Last Admin Trade Name Jyoti PRN Reason Stop Dose Admin Acetaminophen 650 mg 02/15/23 19:57 03/17/23 08:39 Acetaminophen 325 Mg Tablet PO 650 mg Q4HR PRN Administration Pain or Fever > 38C (100.4F) Aspirin 81 mg 02/18/23 09:00 03/17/23 08:32 Aspirin Ec 81 Mg Tablet PO 81 mg DAILY ANGELA Administration Docusate Sodium 250 - 500 mg 02/26/23 17:00 03/17/23 08:31 Docusate Sodium 250 Mg Capsule PO 250 mg BID ANGELA Administration Duloxetine HCl 30 mg 02/15/23 13:30 03/17/23 08:31 Duloxetine 30 Mg Capsule PO 30 mg DAILY ANGELA Administration Fluticasone Propionate 1 sprays 02/17/23 09:00 03/17/23 08:33 Fluticasone Nasal [place] CRISTIAN 1 spray DAILY ANGELA Administration Haloperidol 2 mg 02/22/23 13:06 02/26/23 14:41 Haloperidol 5 Mg/Ml Vial IM 2 mg DAILY PRN Administration Agitation Ibuprofen 600 mg 02/15/23 19:57 03/03/23 20:57 Ibuprofen 600 Mg Tablet PO 600 mg Q6HR PRN Administration MINOR PAIN Lidocaine HCl 1 ml 02/23/23 13:54 02/26/23 13:59 Lidocaine Jelly 2% 6 Ml Jel.Pf.Shanda TOP 1 ml TID PRN Administration anal itching pain Lorazepam 0.5 mg 02/21/23 21:00 03/17/23 08:31 Lorazepam 0.5 Mg Tablet SL 0.5 mg BID ANGELA Administration Magnesium Oxide 400 mg 02/16/23 08:00 03/17/23 08:31 Magnesium Oxide 400 Mg Tablet PO 400 mg DAILYWM ANGELA Administration Metformin HCl 1,000 mg 03/17/23 17:00 03/17/23 16:49 Metformin 500 Mg Tablet PO 1,000 mg 0800,1700 ANGELA Administration Multivitamins/Minerals 1 tab 02/18/23 09:00 03/17/23 08:31 Multivitamin W/Minerals Tablet PO 1 tab DAILYWM ANGELA Administration Olanzapine 5 mg 02/23/23 21:00 03/17/23 08:31 Olanzapine Odt 5 Mg Tablet TL 5 mg BID ANGELA Administration Polyethylene Glycol 17 gm 02/17/23 18:00 03/17/23 08:32 Polyethylene Glycol 3350 17 Gm Packet PO 17 gm DAILY ANGELA Administration Senna 8.6 - 17.2 mg 02/26/23 17:00 03/17/23 08:32 Senna 8.6 Mg Tablet PO 8.6 mg BID ANGELA Administration - Lab Result Fish Bone Diagrams: 03/12/23 04:23 03/12/23 04:23 - Additional Planning My Orders: My Active Orders 03/17/23 17:00 metFORMIN [Glucophage] 1,000 mg PO 0800,1700 Subjective - Subjective Patient Reports: No Complaints Objective Vital Signs: Vital Signs - 24 hr 03/17/23 07:40 Temperature 36.6 C Heart Rate [ 62 Brachial] Respiratory 16 Rate Blood Pressure 152/70 H [Right Brachial artery] O2 Saturation 96 Oxygen O2 Source Room air I&O (Last 24 Hrs): Intake and Output Totals x24h 03/15/23 03/16/23 03/17/23 23:59 23:59 23:59 Intake Total 480 1297 837 Balance 480 1297 837 General: Alert HEENT: Mucous membr. moist/pink Neck: Supple Neuro: Alert Cardiovascular: Regular rate Respiratory: No respiratory distress - Results Results: Laboratory Results WBC 10.0 x10^3/uL (4.8-10.8) 03/12/23 04: RBC 4.22 10^6/uL (4.70-6.10) L 03/12/23 04: Hgb 12.6 g/dL (14.0-18.0) L 03/12/23 04: Hct 37.4 % (42.0-52.0) L 03/12/23 04:23 MCV 88.6 fL (80.0-94.0) 03/12/23 04: MCH 29.9 pg (27.0-31.0) 03/12/23 04: MCHC 33.7 g/dL (32.0-36.0) 03/12/23 04: RDW 12.8 % (12.0-15.0) 03/12/23 04: Plt Count 309 10^3/uL (130-450) 03/12/23 04: MPV 9.6 fL (7.4-11.4) 03/12/23 04: Neut # (Auto) 4.1 10^3/uL (1.5-6.6) 03/05/23 05:20 Lymph # (Auto) 2.8 10^3/uL (1.5-3.5) 03/05/23 05:20 [place] # (Auto) 0.6 10^3/uL (0.0-1.0) 03/05/23 05:20 Eos # (Auto) 0.3 10^3/uL (0.0-0.7) 03/05/23 05:20 Baso # (Auto) 0.0 10^3/uL (0.0-0.1) 03/05/23 05:20 Absolute Nucleated RBC 0.00 x10^3/uL 03/05/23 05:20 Total Counted 100 02/14/23 03:15 Band Neuts % (Manual) 9 % (0-10) 02/14/23 03:15 Abnorm Lymph % (Manual) 0 % 02/14/23 03:15 Nucleated RBC % 0.0 /100WBC 03/05/23 05:20 Neutrophils # (Manual) 18.2 10^3/uL (1.5-6.6) H 02/14/23 03:15 Lymphocytes # (Manual) 1.0 10^3/uL (1.5-3.5) L 02/14/23 03:15 Monocytes # (Manual) 1.2 10^3/uL (0.0-1.0) H 02/14/23 03:15 Eosinophils # (Manual) 0.0 10^3/uL (0-0.7) 02/14/23 03:15 Basophils # (Manual) 0.0 10^3/uL (0-0.1) 02/14/23 03:15 Differential Comment MANUAL DIFFERENTIAL 02/14/23 03:15 Sodium 137 mmol/L (135-145) 03/12/23 04:23 Potassium 3.9 mmol/L (3.5-5.0) 03/12/23 04:23 Chloride 102 mmol/L (101-111) 03/12/23 04:23 Carbon Dioxide 27 mmol/L (21-32) 03/12/23 04:23 Anion Gap 8.0 (6-13) 03/12/23 04:23 BUN 29 mg/dL (6-20) H 03/12/23 04:23 Creatinine 1.3 mg/dL (0.6-1.2) H 03/12/23 04:23 Estimated GFR (MDRD) 57 (>89) L 03/12/23 04:23 Glucose 106 mg/dL (70-100) H 03/12/23 04:23 POC Whole Bld Glucose 103 mg/dL (70 - 100) H 03/14/23 07:38 Estimat Average Glucose 134 mg/dL (70-100) H 02/15/23 05:20 Hemoglobin A1c % 6.3 % (4.27-6.07) H 02/15/23 05:20 Calcium 9.5 mg/dL (8.5-10.3) 03/12/23 04:23 Magnesium 1.5 mg/dL (1.7-2.8) L 02/17/23 05:35 Total Bilirubin 0.3 mg/dL (0.2-1.0) 03/03/23 04:48 AST 25 IU/L (10-42) 03/03/23 04:48 ALT 33 IU/L (10-60) 03/03/23 04:48 Alkaline Phosphatase 77 IU/L (42-121) 03/03/23 04:48 Total Creatine Kinase 440 IU/L (22-269) H 02/23/23 14:10 CK-MB (CK-2) 265.9 ng/mL (0.6-6.3) H 02/14/23 03:15 Total Protein 7.2 g/dL (6.7-8.2) 03/03/23 04:48 Albumin 4.0 g/dL (3.2-5.5) 03/03/23 04:48 Globulin 3.2 g/dL (2.1-4.2) 03/03/23 04:48 Albumin/Globulin Ratio 1.3 (1.0-2.2) 03/03/23 04:48 Lipase 34 U/L (22-51) 02/14/23 03:15 TSH 1.21 uIU/mL (0.34-5.60) 02/14/23 03:15 Urine Color YELLOW 02/18/23 15:10 Urine Clarity CLEAR (CLEAR) 02/18/23 15:10 Urine pH 5.5 PH (5.0-7.5) 02/18/23 15:10 Ur Specific [place] 1.020 (1.002-1.030) 02/18/23 15:10 Urine Protein NEGATIVE mg/dL (NEGATIVE) 02/18/23 15:10 Urine Glucose (UA) NEGATIVE mg/dL (NEGATIVE) 02/18/23 15:10 Urine Ketones NEGATIVE mg/dL (NEGATIVE) 02/18/23 15:10 Urine Occult Blood MODERATE (NEGATIVE) H 02/18/23 15:10 Urine Nitrite NEGATIVE (NEGATIVE) 02/18/23 15:10 Urine Bilirubin NEGATIVE (NEGATIVE) 02/18/23 15:10 Urine Urobilinogen 0.2 (NORMAL) E.U./dL (NORMAL) 02/18/23 15:10 Ur Leukocyte Esterase TRACE (NEGATIVE) H 02/18/23 15:10 Urine RBC 11-25 /HPF (0-5) H 02/18/23 15:10 Urine WBC 6-10 /HPF (0-3) H 02/18/23 15:10 Ur Squamous Epith Cells RARE Squamous (<= Few) 02/18/23 15:10 Urine Bacteria None Seen /HPF (None Seen) 02/18/23 15:10 Urine Sperm PRESENT 02/18/23 15:10 Ur Microscopic Review INDICATED 02/14/23 10:34 Urine Culture Comments INDICATED 02/18/23 15:10 Urine Opiates Screen NEGATIVE (NEGATIVE) 02/14/23 10:34 Ur Oxycodone Screen NEGATIVE (NEGATIVE) 02/14/23 10:34 Urine Methadone Screen NEGATIVE (NEGATIVE) 02/14/23 10:34 Ur Propoxyphene Screen NEGATIVE (NEGATIVE) 02/14/23 10:34 Ur Barbiturates Screen NEGATIVE (NEGATIVE) 02/14/23 10:34 Ur Tricyclics Screen NEGATIVE (NEGATIVE) 02/14/23 10:34 Ur Phencyclidine Scrn NEGATIVE (NEGATIVE) 02/14/23 10:34 Ur Amphetamine Screen NEGATIVE (NEGATIVE) 02/14/23 10:34 U Methamphetamines Scrn NEGATIVE (NEGATIVE) 02/14/23 10:34 U Benzodiazepines Scrn NEGATIVE (NEGATIVE) 02/14/23 10:34 Urine Cocaine Screen NEGATIVE (NEGATIVE) 02/14/23 10:34 U Cannabinoids Screen POSITIVE (NEGATIVE) H 02/14/23 10:34 Ethyl Alcohol < 5.0 mg/dL 02/14/23 03:15
[2023-03-18] MEDS: polyethylene glycoL 3350 17 GM PACKET PO SCH (08:38)
[2023-03-18] MEDS: metFORMIN 500 MG TABLET PO SCH ×2 (08:39→17:01)
[2023-03-18] MEDS: DOCUSATE SODIUM 250 MG CAPSULE PO SCH ×2 (08:40→22:04)
[2023-03-18] MEDS: LORazepam 0.5 MG TABLET SL SCH ×2 (08:40→22:04)
[2023-03-18] MEDS: MULTIVITAMIN W/MINERALS TABLET PO SCH (08:40)
[2023-03-18] MEDS: OLANZapine ODT 5 MG TABLET TL SCH ×2 (08:40→22:04)
[2023-03-18] MEDS: SENNA 8.6 MG TABLET PO SCH ×2 (08:40→22:04)
[2023-03-18] MEDS: ASPIRIN EC 81 MG TABLET PO SCH (08:40)
[2023-03-18] MEDS: MAGNESIUM OXIDE 400 MG TABLET PO SCH (08:40)
[2023-03-18] MEDS: DULoxetine 30 MG CAPSULE PO SCH (08:40)
[2023-03-18] MEDS: FLUTICASONE NASAL SPRAY NAS SCH (08:41)
[2023-03-18] MEDS: ACETAMINOPHEN 325 MG TABLET PO PRN (12:29)
--- NOTE | 2023-03-18 15:16 | PROVIDER PROGRESS NOTE ---
Assessment/Plan - Problem List (1) Major depressive disorder, recurrent, severe with psychotic symptoms Assessment/Plan: He was admitted with multiple falls. Increasing psychosis. To the point he became catatonic. He has now been here over 21. There has been remarkable and positive improvement. Most of the change came from resuming his Risperdal 3 mg twice daily, and adding a benzodiazepine for the catatonia. His psychiatrist let me know that they have been working on permanent placement for him. Its been slow going. He was living with his girlfriend/caregiver. Caregiver burden has been too difficult for her recently. We now have DPOA with his daughter. Daughter is amenable to having him placed. At this time we are awaiting for [facility] to negotiate a daily rate for his placement. (2) No able caregiver in household Assessment/Plan: Plan: Permanent placement is being worked on by our social services specialist, working with his daughter who is now the DPOA (3) Chronic psychosis still present. He is still hallucinating at times. But much more controllable. (4) Chronic kidney disease. Acute kidney injury has resolved in the face of rhabdomyolysis and many falls. His creat of 1.3-1.4 is his new baseline. Patient has been at baseline since approximately February 19. He has no longer needed IV fluids. (5) Type 2 diabetes mellitus, controlled. A1c was 6.3%. He is eating 100% of his meals. Metformin resumed February 22. Glucose is controlled. We stopped fingerstick checks at [facility] several days ago. (6) Rectal fissures or abrasions. Part of his psychosis is that aliens or Indians are shoving things in his rectum. He would use his fingers to manually disimpact himself. He gave himself the rectal cuts. He still says that those things that are tucked into his rectum and sometimes speak to him. But he is having less and less agitation with this. (7) Falls at home. Unclear why he kept on falling. He was not intoxicated. No seizures, no syncope. No orthostasis. Not under the influence of any recreational substance, however we suspect he got Suboxone patch haphazardly. His last prescription was written a year ago and it was ordered for 13 weeks. However there were still several patches available in a box that his caregiver brought from home. so we suspect he was intermittently oversedated on his buprenorphine patch, so we stopped the patch entirely and he has had no pain complaints. Here he is now walking with a walker and does so on a regular basis. He did have 1 fall in the hospital where he was leaning forward and he started going toward the floor and the nurse pushed him back. (8) Abrasions of multiple sites due to frequent falls. Photographs taken by nursing. These have all healed. (9) Poor hygiene on admission. He is taking showers here on a regular basis. (10) Abnormal EKG. Echo was done to make sure he did not have cor pulmonale and Echo was normal. (11) Left arm swelling. Duplex Doppler - February 18 ws neg (12) Right third toe infection. Resolved. Completed Keflex February 28. (13) Rhabdomyolysis This was from the falls and has resolved. (14) Catatonia has resolved after restarting Risperdal 3 mg twice daily, and adding a Benzodiazepine. - Current Meds Current Meds: Current Medications Generic Name Dose Route Start Last Admin Trade Name Jyoti PRN Reason Stop Dose Admin Acetaminophen 650 mg 02/15/23 19:57 03/18/23 12:29 Acetaminophen 325 Mg Tablet PO 650 mg Q4HR PRN Administration Pain or Fever > 38C (100.4F) Aspirin 81 mg 02/18/23 09:00 03/18/23 08:40 Aspirin Ec 81 Mg Tablet PO 81 mg DAILY ANGELA Administration Docusate Sodium 250 - 500 mg 02/26/23 17:00 03/18/23 08:40 Docusate Sodium 250 Mg Capsule PO 250 mg BID ANGELA Administration Duloxetine HCl 30 mg 02/15/23 13:30 03/18/23 08:40 Duloxetine 30 Mg Capsule PO 30 mg DAILY ANGELA Administration Fluticasone Propionate 1 sprays 02/17/23 09:00 03/18/23 08:41 Fluticasone Nasal [place] CRISTIAN 1 spray DAILY ANGELA Administration Haloperidol 2 mg 02/22/23 13:06 02/26/23 14:41 Haloperidol 5 Mg/Ml Vial IM 2 mg DAILY PRN Administration Agitation Ibuprofen 600 mg 02/15/23 19:57 03/03/23 20:57 Ibuprofen 600 Mg Tablet PO 600 mg Q6HR PRN Administration MINOR PAIN Lidocaine HCl 1 ml 02/23/23 13:54 02/26/23 13:59 Lidocaine Jelly 2% 6 Ml Jel.Pf.Shanda TOP 1 ml TID PRN Administration anal itching pain Lorazepam 0.5 mg 02/21/23 21:00 03/18/23 08:40 Lorazepam 0.5 Mg Tablet SL 0.5 mg BID ANGELA Administration Magnesium Oxide 400 mg 02/16/23 08:00 03/18/23 08:40 Magnesium Oxide 400 Mg Tablet PO 400 mg DAILYWM ANGELA Administration Metformin HCl 1,000 mg 03/17/23 17:00 03/18/23 08:39 Metformin 500 Mg Tablet PO 1,000 mg 0800,1700 ANGELA Administration Multivitamins/Minerals 1 tab 02/18/23 09:00 03/18/23 08:40 Multivitamin W/Minerals Tablet PO 1 tab DAILYWM ANGELA Administration Olanzapine 5 mg 02/23/23 21:00 03/18/23 08:40 Olanzapine Odt 5 Mg Tablet TL 5 mg BID ANGELA Administration Polyethylene Glycol 17 gm 02/17/23 18:00 03/18/23 08:38 Polyethylene Glycol 3350 17 Gm Packet PO 17 gm DAILY ANGELA Administration Senna 8.6 - 17.2 mg 02/26/23 17:00 03/18/23 08:40 Senna 8.6 Mg Tablet PO 8.6 mg BID ANGELA Administration - Lab Result Fish Bone Diagrams: 03/12/23 04:23 03/12/23 04:23 - Additional Planning My Orders: My Active Orders 03/17/23 17:00 metFORMIN [Glucophage] 1,000 mg PO 0800,1700 Subjective - Subjective Patient Reports: No Complaints (Today the patient approached me, while he was walking in the hallway and asked "when am I leaving here") Objective Vital Signs: Vital Signs - 24 hr 03/18/23 08:58 Temperature 36.4 C L Heart Rate [ 68 Brachial] Respiratory 18 Rate Blood Pressure 142/81 H [Right Brachial artery] O2 Saturation 96 Oxygen O2 Source Room air I&O (Last 24 Hrs): Intake and Output Totals x24h 03/16/23 03/17/23 03/18/23 23:59 23:59 23:59 Intake Total 1297 1077 777 Balance 1297 1077 777 General: Alert, No acute distress HEENT: Mucous membr. moist/pink Neck: Supple Neuro: Alert, Non Focal Cardiovascular: Regular rate Respiratory: No respiratory distress Extremities: No clubbing, No edema - Results Results: Laboratory Results WBC 10.0 x10^3/uL (4.8-10.8) 03/12/23 04: RBC 4.22 10^6/uL (4.70-6.10) L 03/12/23 04:23 Hgb 12.6 g/dL (14.0-18.0) L 03/12/23 04:23 Hct 37.4 % (42.0-52.0) L 03/12/23 04:23 MCV 88.6 fL (80.0-94.0) 03/12/23 04:23 MCH 29.9 pg (27.0-31.0) 03/12/23 04: MCHC 33.7 g/dL (32.0-36.0) 03/12/23 04: RDW 12.8 % (12.0-15.0) 03/12/23 04:23 Plt Count 309 10^3/uL (130-450) 03/12/23 04: MPV 9.6 fL (7.4-11.4) 03/12/23 04:23 Neut # (Auto) 4.1 10^3/uL (1.5-6.6) 03/05/23 05:20 Lymph # (Auto) 2.8 10^3/uL (1.5-3.5) 03/05/23 05:20 [place] # (Auto) 0.6 10^3/uL (0.0-1.0) 03/05/23 05:20 Eos # (Auto) 0.3 10^3/uL (0.0-0.7) 03/05/23 05:20 Baso # (Auto) 0.0 10^3/uL (0.0-0.1) 03/05/23 05:20 Absolute Nucleated RBC 0.00 x10^3/uL 03/05/23 05:20 Total Counted 100 02/14/23 03:15 Band Neuts % (Manual) 9 % (0-10) 02/14/23 03:15 Abnorm Lymph % (Manual) 0 % 02/14/23 03:15 Nucleated RBC % 0.0 /100WBC 03/05/23 05:20 Neutrophils # (Manual) 18.2 10^3/uL (1.5-6.6) H 02/14/23 03:15 Lymphocytes # (Manual) 1.0 10^3/uL (1.5-3.5) L 02/14/23 03:15 Monocytes # (Manual) 1.2 10^3/uL (0.0-1.0) H 02/14/23 03:15 Eosinophils # (Manual) 0.0 10^3/uL (0-0.7) 02/14/23 03:15 Basophils # (Manual) 0.0 10^3/uL (0-0.1) 02/14/23 03:15 Differential Comment MANUAL DIFFERENTIAL 02/14/23 03:15 Sodium 137 mmol/L (135-145) 03/12/23 04:23 Potassium 3.9 mmol/L (3.5-5.0) 03/12/23 04:23 Chloride 102 mmol/L (101-111) 03/12/23 04:23 Carbon Dioxide 27 mmol/L (21-32) 03/12/23 04:23 Anion Gap 8.0 (6-13) 03/12/23 04:23 BUN 29 mg/dL (6-20) H 03/12/23 04:23 Creatinine 1.3 mg/dL (0.6-1.2) H 03/12/23 04:23 Estimated GFR (MDRD) 57 (>89) L 03/12/23 04:23 Glucose 106 mg/dL (70-100) H 03/12/23 04:23 POC Whole Bld Glucose 103 mg/dL (70 - 100) H 03/14/23 07:38 Estimat Average Glucose 134 mg/dL (70-100) H 02/15/23 05:20 Hemoglobin A1c % 6.3 % (4.27-6.07) H 02/15/23 05:20 Calcium 9.5 mg/dL (8.5-10.3) 03/12/23 04:23 Magnesium 1.5 mg/dL (1.7-2.8) L 02/17/23 05:35 Total Bilirubin 0.3 mg/dL (0.2-1.0) 03/03/23 04:48 AST 25 IU/L (10-42) 03/03/23 04:48 ALT 33 IU/L (10-60) 03/03/23 04:48 Alkaline Phosphatase 77 IU/L (42-121) 03/03/23 04:48 Total Creatine Kinase 440 IU/L (22-269) H 02/23/23 14:10 CK-MB (CK-2) 265.9 ng/mL (0.6-6.3) H 02/14/23 03:15 Total Protein 7.2 g/dL (6.7-8.2) 03/03/23 04:48 Albumin 4.0 g/dL (3.2-5.5) 03/03/23 04:48 Globulin 3.2 g/dL (2.1-4.2) 03/03/23 04:48 Albumin/Globulin Ratio 1.3 (1.0-2.2) 03/03/23 04:48 Lipase 34 U/L (22-51) 02/14/23 03:15 TSH 1.21 uIU/mL (0.34-5.60) 02/14/23 03:15 Urine Color YELLOW 02/18/23 15:10 Urine Clarity CLEAR (CLEAR) 02/18/23 15:10 Urine pH 5.5 PH (5.0-7.5) 02/18/23 15:10 Ur Specific [place] 1.020 (1.002-1.030) 02/18/23 15:10 Urine Protein NEGATIVE mg/dL (NEGATIVE) 02/18/23 15:10 Urine Glucose (UA) NEGATIVE mg/dL (NEGATIVE) 02/18/23 15:10 Urine Ketones NEGATIVE mg/dL (NEGATIVE) 02/18/23 15:10 Urine Occult Blood MODERATE (NEGATIVE) H 02/18/23 15:10 Urine Nitrite NEGATIVE (NEGATIVE) 02/18/23 15:10 Urine Bilirubin NEGATIVE (NEGATIVE) 02/18/23 15:10 Urine Urobilinogen 0.2 (NORMAL) E.U./dL (NORMAL) 02/18/23 15:10 Ur Leukocyte Esterase TRACE (NEGATIVE) H 02/18/23 15:10 Urine RBC 11-25 /HPF (0-5) H 02/18/23 15:10 Urine WBC 6-10 /HPF (0-3) H 02/18/23 15:10 Ur Squamous Epith Cells RARE Squamous (<= Few) 02/18/23 15:10 Urine Bacteria None Seen /HPF (None Seen) 02/18/23 15:10 Urine Sperm PRESENT 02/18/23 15:10 Ur Microscopic Review INDICATED 02/14/23 10:34 Urine Culture Comments INDICATED 02/18/23 15:10 Urine Opiates Screen NEGATIVE (NEGATIVE) 02/14/23 10:34 Ur Oxycodone Screen NEGATIVE (NEGATIVE) 02/14/23 10:34 Urine Methadone Screen NEGATIVE (NEGATIVE) 02/14/23 10:34 Ur Propoxyphene Screen NEGATIVE (NEGATIVE) 02/14/23 10:34 Ur Barbiturates Screen NEGATIVE (NEGATIVE) 02/14/23 10:34 Ur Tricyclics Screen NEGATIVE (NEGATIVE) 02/14/23 10:34 Ur Phencyclidine Scrn NEGATIVE (NEGATIVE) 02/14/23 10:34 Ur Amphetamine Screen NEGATIVE (NEGATIVE) 02/14/23 10:34 U Methamphetamines Scrn NEGATIVE (NEGATIVE) 02/14/23 10:34 U Benzodiazepines Scrn NEGATIVE (NEGATIVE) 02/14/23 10:34 Urine Cocaine Screen NEGATIVE (NEGATIVE) 02/14/23 10:34 U Cannabinoids Screen POSITIVE (NEGATIVE) H 02/14/23 10:34 Ethyl Alcohol < 5.0 mg/dL 02/14/23 03:15
[2023-03-19] MEDS: OLANZapine ODT 5 MG TABLET TL SCH ×2 (08:46→20:44)
[2023-03-19] MEDS: ASPIRIN EC 81 MG TABLET PO SCH (08:46)
[2023-03-19] MEDS: SENNA 8.6 MG TABLET PO SCH ×2 (08:46→20:44)
[2023-03-19] MEDS: LORazepam 0.5 MG TABLET SL SCH ×2 (08:46→20:44)
[2023-03-19] MEDS: MAGNESIUM OXIDE 400 MG TABLET PO SCH (08:46)
[2023-03-19] MEDS: MULTIVITAMIN W/MINERALS TABLET PO SCH (08:46)
[2023-03-19] MEDS: polyethylene glycoL 3350 17 GM PACKET PO SCH (08:47)
[2023-03-19] MEDS: DULoxetine 30 MG CAPSULE PO SCH (08:47)
[2023-03-19] MEDS: metFORMIN 500 MG TABLET PO SCH ×2 (08:47→17:01)
[2023-03-19] MEDS: DOCUSATE SODIUM 250 MG CAPSULE PO SCH ×2 (08:47→20:43)
[2023-03-19] MEDS: FLUTICASONE NASAL SPRAY NAS SCH (08:48)
--- NOTE | 2023-03-19 13:37 | PROVIDER PROGRESS NOTE ---
Subjective - Prog Note Date Prog Note Date: 03/19/23 Prog Note Time: 13:34 - Subjective Subjective: He has been walking the hallways. Appropriately responsive to our request. No behavioral issues for weeks now. Right now he denies any pain. There is no chest pain, cough, shortness of breath. He is lamenting that he would just like to go home. He wants to know when he can leave Current Medications - Current Medications Current Medications: Active Medications Acetaminophen (Acetaminophen 325 Mg Tablet) 650 mg PO Q4HR PRN PRN Reason: Pain or Fever > 38C (100.4F) Last Admin: 03/18/23 12:29 Dose: 650 mg Aspirin (Aspirin Ec 81 Mg Tablet) 81 mg PO DAILY [facility] Last Admin: 03/19/23 08:46 Dose: 81 mg Docusate Sodium (Docusate Sodium 250 Mg Capsule) 250 - 500 mg PO BID [facility] Last Admin: 03/19/23 08:47 Dose: 250 mg Duloxetine HCl (Duloxetine 30 Mg Capsule) 30 mg PO DAILY [facility] Last Admin: 03/19/23 08:47 Dose: 30 mg Fluticasone Propionate (Fluticasone Nasal [place]) 1 sprays CRISTIAN DAILY [facility] Last Admin: 03/19/23 08:48 Dose: 1 spray Haloperidol (Haloperidol 5 Mg/Ml Vial) 2 mg IM DAILY PRN PRN Reason: Agitation Last Admin: 02/26/23 14:41 Dose: 2 mg Hydrocortisone (Hydrocortisone 1% Cream 28 Gm Tube) 1 applic TOP TID PRN PRN Reason: ITCHING Ibuprofen (Ibuprofen 600 Mg Tablet) 600 mg PO Q6HR PRN PRN Reason: MINOR PAIN Last Admin: 03/03/23 20:57 Dose: 600 mg Lidocaine HCl (Lidocaine Jelly 2% 6 Ml Jel.Pf.Shanda) 1 ml TOP TID PRN PRN Reason: anal itching pain Last Admin: 02/26/23 13:59 Dose: 1 ml Lorazepam (Lorazepam 0.5 Mg Tablet) 0.5 mg SL BID [facility] Last Admin: 03/19/23 08:46 Dose: 0.5 mg Magnesium Oxide (Magnesium Oxide 400 Mg Tablet) 400 mg PO DAILYWM [facility] Last Admin: 03/19/23 08:46 Dose: 400 mg Metformin HCl (Metformin 500 Mg Tablet) 1,000 mg PO 0800,1700 [facility] Last Admin: 03/19/23 08:47 Dose: 1,000 mg Multivitamins/Minerals (Multivitamin W/Minerals Tablet) 1 tab PO DAILYWM [facility] Last Admin: 03/19/23 08:46 Dose: 1 tab Olanzapine (Olanzapine Odt 5 Mg Tablet) 5 mg TL BID [facility] Last Admin: 03/19/23 08:46 Dose: 5 mg Ondansetron HCl (Ondansetron 4 Mg/2 Ml Vial) 4 mg IVP Q6HR PRN PRN Reason: Nausea / Vomiting Polyethylene Glycol (Polyethylene Glycol 3350 17 Gm Packet) 17 gm PO DAILY [facility] Last Admin: 03/19/23 08:47 Dose: 17 gm Senna (Senna 8.6 Mg Tablet) 8.6 - 17.2 mg PO BID [facility] Last Admin: 03/19/23 08:46 Dose: 8.6 mg metFORMIN [Glucophage] 1,000 mg PO BIDWM 08/29/20 Aspirin [Aspirin EC] 81 mg PO DAILY 12/20/22 Atorvastatin Calcium [Lipitor] 80 mg PO HS 12/20/22 DULoxetine [Cymbalta] 60 mg PO DAILY 12/20/22 Fluticasone [Flonase] 1 sprays CRISTIAN DAILY 12/20/22 Gabapentin [Neurontin] 600 mg PO TID 12/20/22 risperiDONE [Risperdal] 3 mg PO BID 12/20/22 Buprenorphine 1 each TD Q7D PRN 12/21/22 Objective - Vital Signs/Intake & Output Reviewed Vital Signs: Yes Vital Signs: Vital Signs x48h Temp Pulse Resp BP Pulse Ox 03/19/23 07:39 36.6 C 72 18 113/70 94 Intake & Output: Intake & Output 03/16/23 03/17/23 03/18/23 03/19/23 23:59 23:59 23:59 23:59 Intake Total 1297 1077 897 480 Balance 1297 1077 897 480 - Objective General Appearance: positive: No acute distress, Alert, Other (Middle-aged white male, bearded, closely cropped hair, well-nourished, well-developed) Eyes Bilateral: positive: PERRL, EOMI ENT: positive: No signs of dehydration Neck: positive: No JVD. negative: Stiff neck Respiratory: positive: No respiratory distress. negative: Wheezes, Rales, Rhonchi Cardiovascular: positive: Regular rate & rhythm Abdomen: positive: Non-tender, No organomegaly, Nml bowel sounds, No distention Skin: positive: Warm, Dry Extremities: positive: Full ROM, No pedal edema Neurologic/Psychiatric: positive: Oriented x3, CN's nml (2-12), Motor nml. negative: Mood/affect nml (Flat affect, low monotonic voice, but no behavioral disturbance) - Lab Results Fish Bones: 03/12/23 04:23 03/12/23 04:23 Assessment/Plan - Problem List (1) Major depressive disorder, recurrent, severe with psychotic symptoms Impression: He was admitted with multiple falls. Increasing psychosis. To the point he became catatonic. He has now been here over 33 days. There has been remarkable and positive improvement. Most of the change came from resuming his Risperdal 3 mg twice daily, and adding a benzodiazepine for the catatonia. His psyc hiatrist let me know that they have been working on permanent placement for him. Its been slow going. He was living with his girlfriend/caregiver. Caregiver burden has been too difficult for her recently. We now have DPOA with his daughter. Daughter is amenable to having him placed. At this time we are awaiting for [facility] to negotiate a daily rate for his placement. (2) No able caregiver in household Assessment/Plan: Plan: Permanent placement is being worked on by our social work specialist, working with his daughter who is now the DPOA (3) Chronic psychosis still present. He is still hallucinating at times. But much more controllable. (4) Chronic kidney disease. Acute kidney injury has resolved in the face of rhabdomyolysis and many falls. His creat of 1.3-1.4 is his new baseline. Patient has been at baseline since approximately February 19. He has no longer needed IV fluids. (5) Type 2 diabetes mellitus, controlled. A1c was 6.3%. He is eating 100% of his meals. Metformin resumed February 22. Glucose is controlled. We stopped fingerstick checks at [facility] several days ago. (6) Rectal fissures or abrasions. Part of his psychosis is that aliens or Indians are shoving things in his rectum. He would use his fingers to manually disimpact himself. He gave himself the rectal cuts. He still says that those things that are tucked into his rectum and sometimes speak to him. But he is having less and less agitation with this. (7) Falls at home. Unclear why he kept on falling. He was not intoxicated. No seizures, no syncope. No orthostasis. Not under the influence of any recreational substance, however we suspect he got Suboxone patch haphazardly. His last prescription was written a year ago and it was ordered for 13 weeks. However there were still several patches available in a box that his caregiver brought from home. so we suspect he was intermittently oversedated on his buprenorphine patch, so we stopped the patch entirely and he has had no pain complaints. Here he is now walking with a walker and does so on a regular basis. He did have 1 fall in the hospital where he was leaning forward and he started going toward the floor and the nurse pushed him back. (8) Abrasions of multiple sites due to frequent falls. Photographs taken by nursing. These have all healed. (9) Poor hygiene on admission. He is taking showers here on a regular basis. (10) Abnormal EKG. Echo was done to make sure he did not have cor pulmonale and Echo was normal. (11) Left arm swelling. Duplex Doppler - February 18 ws neg (12) Right third toe infection. Resolved. Completed Keflex February 28. (13) Rhabdomyolysis This was from the falls and has resolved. (14) Catatonia has resolved after restarting Risperdal 3 mg twice daily, and adding a Benzodiazepine.
[2023-03-20] MEDS: polyethylene glycoL 3350 17 GM PACKET PO SCH (08:54)
[2023-03-20] MEDS: SENNA 8.6 MG TABLET PO SCH ×2 (08:54→20:20)
[2023-03-20] MEDS: DULoxetine 30 MG CAPSULE PO SCH (08:54)
[2023-03-20] MEDS: LORazepam 0.5 MG TABLET SL SCH ×2 (08:54→20:20)
[2023-03-20] MEDS: metFORMIN 500 MG TABLET PO SCH ×2 (08:54→16:32)
[2023-03-20] MEDS: DOCUSATE SODIUM 250 MG CAPSULE PO SCH ×2 (08:55→20:20)
[2023-03-20] MEDS: MULTIVITAMIN W/MINERALS TABLET PO SCH (08:55)
[2023-03-20] MEDS: MAGNESIUM OXIDE 400 MG TABLET PO SCH (08:55)
[2023-03-20] MEDS: FLUTICASONE NASAL SPRAY NAS SCH (08:55)
[2023-03-20] MEDS: ASPIRIN EC 81 MG TABLET PO SCH (08:55)
[2023-03-20] MEDS: OLANZapine ODT 5 MG TABLET TL SCH ×2 (08:55→20:20)
--- NOTE | 2023-03-20 13:23 | PROVIDER PROGRESS NOTE ---
Subjective - Prog Note Date Prog Note Date: 03/20/23 Prog Note Time: 13:21 - Subjective Subjective: no new problems. walking in hallways, sleeping well. denies pain. Thoroughly as he will be discharged tomorrow. They have found a long-term that will take him. It is an adult family home in [place]. They are still finalizing the details but hopefully he will be discharged by or Saturday of this week (today is Saturday) Current Medications - Current Medications Current Medications: Active Medications Acetaminophen (Acetaminophen 325 Mg Tablet) 650 mg PO Q4HR PRN PRN Reason: Pain or Fever > 38C (100.4F) Last Admin: 03/18/23 12:29 Dose: 650 mg Aspirin (Aspirin Ec 81 Mg Tablet) 81 mg PO DAILY [facility] Last Admin: 03/20/23 08:55 Dose: 81 mg Docusate Sodium (Docusate Sodium 250 Mg Capsule) 250 - 500 mg PO BID [facility] Last Admin: 03/20/23 08:55 Dose: 250 mg Duloxetine HCl (Duloxetine 30 Mg Capsule) 30 mg PO DAILY [facility] Last Admin: 03/20/23 08:54 Dose: 30 mg Fluticasone Propionate (Fluticasone Nasal [place]) 1 sprays CRISTIAN DAILY [facility] Last Admin: 03/20/23 08:55 Dose: 1 spray Haloperidol (Haloperidol 5 Mg/Ml Vial) 2 mg IM DAILY PRN PRN Reason: Agitation Last Admin: 02/26/23 14:41 Dose: 2 mg Hydrocortisone (Hydrocortisone 1% Cream 28 Gm Tube) 1 applic TOP TID PRN PRN Reason: ITCHING Ibuprofen (Ibuprofen 600 Mg Tablet) 600 mg PO Q6HR PRN PRN Reason: MINOR PAIN Last Admin: 03/03/23 20:57 Dose: 600 mg Lidocaine HCl (Lidocaine Jelly 2% 6 Ml Jel.Pf.Shanda) 1 ml TOP TID PRN PRN Reason: anal itching pain Last Admin: 02/26/23 13:59 Dose: 1 ml Lorazepam (Lorazepam 0.5 Mg Tablet) 0.5 mg SL BID [facility] Last Admin: 03/20/23 08:54 Dose: 0.5 mg Magnesium Oxide (Magnesium Oxide 400 Mg Tablet) 400 mg PO DAILYWM [facility] Last Admin: 03/20/23 08:55 Dose: 400 mg Metformin HCl (Metformin 500 Mg Tablet) 1,000 mg PO 0800,1700 [facility] Last Admin: 03/20/23 08:54 Dose: 1,000 mg Multivitamins/Minerals (Multivitamin W/Minerals Tablet) 1 tab PO DAILYWM [facility] Last Admin: 03/20/23 08:55 Dose: 1 tab Olanzapine (Olanzapine Odt 5 Mg Tablet) 5 mg TL BID [facility] Last Admin: 03/20/23 08:55 Dose: 5 mg Ondansetron HCl (Ondansetron 4 Mg/2 Ml Vial) 4 mg IVP Q6HR PRN PRN Reason: Nausea / Vomiting Polyethylene Glycol (Polyethylene Glycol 3350 17 Gm Packet) 17 gm PO DAILY [facility] Last Admin: 03/20/23 08:54 Dose: 17 gm Senna (Senna 8.6 Mg Tablet) 8.6 - 17.2 mg PO BID [facility] Last Admin: 03/20/23 08:54 Dose: 8.6 mg metFORMIN [Glucophage] 1,000 mg PO BIDWM 08/29/20 Aspirin [Aspirin EC] 81 mg PO DAILY 12/20/22 Atorvastatin Calcium [Lipitor] 80 mg PO HS 12/20/22 DULoxetine [Cymbalta] 60 mg PO DAILY 12/20/22 Fluticasone [Flonase] 1 sprays CRISTIAN DAILY 12/20/22 Gabapentin [Neurontin] 600 mg PO TID 12/20/22 risperiDONE [Risperdal] 3 mg PO BID 12/20/22 Buprenorphine 1 each TD Q7D PRN 12/21/22 Objective - Vital Signs/Intake & Output Reviewed Vital Signs: Yes Vital Signs: Vital Signs x48h Temp Pulse Resp BP Pulse Ox 03/20/23 08:55 36.3 C L 65 18 103/52 L 97 Intake & Output: Intake & Output 03/17/23 03/18/23 03/19/23 03/20/23 23:59 23:59 23:59 23:59 Intake Total 1077 897 836 380 Balance 1077 897 836 380 - Objective General Appearance: positive: Alert, Other (Stocky bearded white male, well groomed, well nourished) Eyes Bilateral: positive: PERRL, EOMI Neck: positive: No JVD. negative: Stiff neck Respiratory: positive: No respiratory distress. negative: Wheezes, Rales, Rhonchi Cardiovascular: positive: Regular rate & rhythm Abdomen: positive: Non-tender, No organomegaly, Nml bowel sounds, No distention Skin: positive: Warm, Dry Extremities: positive: Full ROM, No pedal edema Neurologic/Psychiatric: positive: Oriented x3 (Except for time), CN's nml (2- 12), Motor nml, Disoriented to time, Other (Flat affect but alert, cooperative, appropriate, cooperative, answers questions) - Lab Results Fish Bones: 03/12/23 04:23 03/12/23 04:23 Assessment/Plan - Problem List (1) Major depressive disorder, recurrent, severe with psychotic symptoms Impression: He was admitted with multiple falls. Increasing psychosis. To the point he became catatonic. He has now been here over 35 days. There has been remarkable and positive improvement. Most of the change came from resuming his Risperdal 3 mg twice daily, and adding a benzodiazepine for the catatonia. His psychiatrist let me know that they have been working on permanent placement for him. Its been slow going. He was living with his girlfriend/caregiver. Caregiver burden has been too difficult for her recently. We now have DPOA with his daughter. Daughter is amenable to having him placed. At this time we are awaiting for [facility] to negotiate a daily rate for his placement. We have a tentative acceptance for an adult family home in [place]. Social work, case management are working to get the details together. Otherwise there are no new information for this patient. No orders written today (2) No able caregiver in household Assessment/Plan: Plan: Permanent placement is being worked on by our director social, working with his daughter who is now the DPOA (3) Chronic psychosis still present. He is still hallucinating at times. But much more controllable. (4) Chronic kidney disease. Acute kidney injury has resolved in the face of rhabdomyolysis and many falls. His creat of 1.3-1.4 is his new baseline. Patient has been at baseline since approximately February 19. He has no longer needed IV fluids. (5) Type 2 diabetes mellitus, controlled. A1c was 6.3%. He is eating 100% of his meals. Metformin resumed February 22. Glucose is controlled. We stopped fingerstick checks at [facility] several days ago. (6) Rectal fissures or abrasions. Part of his psychosis is that aliens or Indians are shoving things in his rectum. He would use his fingers to manually disimpact himself. He gave himself the rectal cuts. He still says that those things that are tucked into his rectum and sometimes speak to him. But he is having less and less agitation with this. (7) Falls at home. Unclear why he kept on falling. He was not intoxicated. No seizures, no syncope. No orthostasis. Not under the influence of any recreational substance, however we suspect he got Suboxone patch haphazardly. His last prescription was written a year ago and it was ordered for 13 weeks. However there were still several patches available in a box that his caregiver brought from home. so we suspect he was intermittently oversedated on his buprenorphine patch, so we stopped the patch entirely and he has had no pain complaints. Here he is now walking with a walker and does so on a regular basis. He did have 1 fall in the hospital where he was leaning forward and he started going toward the floor and the nurse pushed him back. (8) Abrasions of multiple sites due to frequent falls. Photographs taken by nursing. These have all healed. (9) Poor hygiene on admission. He is taking showers here on a regular basis. (10) Abnormal EKG. Echo was done to make sure he did not have cor pulmonale and Echo was normal. (11) Left arm swelling. Duplex Doppler - February 18 ws neg (12) Right third toe infection. Resolved. Completed Keflex February 28. (13) Rhabdomyolysis This was from the falls and has resolved. (14) Catatonia has resolved after restarting Risperdal 3 mg twice daily, and adding a Benzodiazepine.
[2023-03-21] MEDS: MAGNESIUM OXIDE 400 MG TABLET PO SCH (08:22)
[2023-03-21] MEDS: DOCUSATE SODIUM 250 MG CAPSULE PO SCH ×2 (08:22→20:19)
[2023-03-21] MEDS: MULTIVITAMIN W/MINERALS TABLET PO SCH (08:22)
[2023-03-21] MEDS: ASPIRIN EC 81 MG TABLET PO SCH (08:22)
[2023-03-21] MEDS: OLANZapine ODT 5 MG TABLET TL SCH ×2 (08:22→20:19)
[2023-03-21] MEDS: DULoxetine 30 MG CAPSULE PO SCH (08:22)
[2023-03-21] MEDS: SENNA 8.6 MG TABLET PO SCH ×2 (08:23→20:19)
[2023-03-21] MEDS: LORazepam 0.5 MG TABLET SL SCH ×2 (08:23→20:18)
[2023-03-21] MEDS: polyethylene glycoL 3350 17 GM PACKET PO SCH (08:23)
[2023-03-21] MEDS: FLUTICASONE NASAL SPRAY NAS SCH (08:24)
[2023-03-21] MEDS: metFORMIN 500 MG TABLET PO SCH ×2 (09:05→16:45)
--- NOTE | 2023-03-21 13:33 | ADVANCE CARE PLANNING NOTE ---
Advance Care Planning - Planning Encounter Date: 03/21/23 Time: 13:00 Purpose: To establish what his goals are for CODE BLUE status and for aggressiveness of medical care going forward. Parties in Attendance: I spoke to the patient in his room, and for the initial part of the discussion, Adelaida Diallo, [employer] was present. Decisional Capacity of the Patient: When the patient is not psychotic, he has full decisional capacity. Today he is alert and oriented x3 and is not psychotic, is conversant, thus I feel that he has decisional capacity today. - Diagnosis for Encounter (1) Major depressive disorder, recurrent, severe with psychotic symptoms Summary: The patient has had psychiatric problems for many years. He has been seeing a psychiatrist who has been adjusting his medications. When he got admitted over a month ago, it appears now,that he was taking those medications haphazardly, was psychotic and suspicious and catatonic. As we have adjusted the medications back to what the psychiatrist recommended, he has become stable, conversant, ambulates independently. - Encounter Subjective/Patient's Story: Patient lived with his caregiver who he called his girlfriend. He has become more confused and psychotic over the past 2 years, was probably more depressed and catatonic, according to the psychiatrist input that we got this admission. When he had recurrent falls, the caregiver called an ambulance which caused this admission. Objective/Medical Story: He has been seeing a psychiatrist who has been adjusting his medications. He was living with his caregiver who would leave him alone overnight. He was having more falls at home and, it appears now, that he was taking his medications, including a Buprenorphine patch, haphazardly. He was initially psychotic and suspicious and catatonic. As we have adjusted the medications back to what the psychiatrist recommended, he has become stable, conversant, ambulates independently. His daughter Christina has been named as his DPOA. Since there is no reliable caregiver at home, the focus has been to have him placed in a center, and not return to [facility] where he was before this admission. Goals of Care: I explained to the patient slowly, what resuscitation for a cardiac arrest means, including CPR, defibrillation and a ventilator. His answer was that he has no problems with his heart now and he does not know what circumstances he may be found in in the future. I asked him to think about what he would want now as he became older. His answer was "Yeah keep me alive till we can see with going on". I then asked him what kind of medical care in general he wants; comfort directed care, selective care, or full care including transfers. He said he wants to pick and choose what kind of care he will want. Plan: Continue with full code/attempt resuscitation. Continue with medical care that we are giving him here. A POLST form will be completed today and scanned into his chart, he signed it, and I signed it. Code Status: Attempt Resuscitation Time spent on advance care plannin min
--- NOTE | 2023-03-21 13:47 | PROVIDER PROGRESS NOTE ---
Assessment/Plan - Problem List (1) Major depressive disorder, recurrent, severe with psychotic symptoms Assessment/Plan: He was admitted with multiple falls. Increasing psychosis. To the point he became catatonic. He has now been here over 35 days. There has been remarkable and positive improvement. Most of the change came from resuming his Risperdal 3 mg twice daily, and adding a benzodiazepine for the catatonia. His psychiatrist let me know that they have been working on permanent placement for him. Its been slow going. He was living with his girlfriend/caregiver. Caregiver burden has been too difficult for her recently. We now have DPOA with his daughter. Daughter is amenable to having him placed. At this time we are awaiting for [facility],an adult family home in [place] to fimalize all the paperwork. Social work, case management are working to get the details together. Today I sat with the patient to discuss his wishes and to complete a POLST form, which was accomplished. Otherwise there is no new information for this patient. No orders written today (2) No able caregiver in household Assessment/Plan: He was living with his girlfriend/caregiver. Caregiver burden has been too difficult for her recently, and she had to leave him unaccompanied at night, when she worked. Plan: Permanent placement is being worked on by our marriage and family social worker, working with his daughter who is now the DPOA (3) Chronic psychosis still present. He is still hallucinating at times. But much more controllable. (4) Chronic kidney disease. Acute kidney injury has resolved in the face of rhabdomyolysis and many falls. His creat of 1.3-1.4 is his new baseline. Patient has been at baseline since approximately February 19. He has no longer needed IV fluids. (5) Type 2 diabetes mellitus, controlled. A1c was 6.3%. He is eating 100% of his meals. Metformin resumed February 22. Glucose is controlled. We stopped fingerstick checks at [facility] many days ago. (6) Rectal fissures or abrasions. Part of his psychosis is that aliens or Indians are shoving things in his rectum. He would use his fingers to manually disimpact himself. He gave himself the rectal cuts. He still says that those things that are tucked into his rectum and sometimes speak to him. But he is having less and less agitation with this. (7) Falls at home. Unclear why he kept on falling. He was not intoxicated. No seizures, no syncope. No orthostasis. Not under the influence of any recreational substance, however we suspect he got Suboxone patch haphazardly. His last prescription was written a year ago and it was ordered for 13 weeks. However there were still several patches available in a box that his caregiver brought from home. so we suspect he was intermittently oversedated on his buprenorphine patch, so we stopped the patch entirely and he has had no pain complaints. Here he is now walking with a walker and does so on a regular basis. He did have 1 fall in the hospital where he was leaning forward and he started going toward the floor and the nurse pushed him back. (8) Abrasions of multiple sites due to frequent falls. Photographs taken by nursing. These have all healed. (9) Poor hygiene on admission. He is taking showers here on a more regular basis. (10) Abnormal EKG. Echo was done to make sure he did not have cor pulmonale and Echo was normal. (11) Left arm swelling. Duplex Doppler - February 18 ws neg (12) Right third toe infection. Resolved. Completed Keflex February 28. (13) Rhabdomyolysis This was from the falls and has resolved. (14) Catatonia has resolved after restarting Risperdal 3 mg twice daily, and adding a Benzodiazepine. - Current Meds Current Meds: Current Medications Generic Name Dose Route Start Last Admin Trade Name Jyoti PRN Reason Stop Dose Admin Acetaminophen 650 mg 02/15/23 19:57 03/18/23 12:29 Acetaminophen 325 Mg Tablet PO 650 mg Q4HR PRN Administration Pain or Fever > 38C (100.4F) Aspirin 81 mg 02/18/23 09:00 03/21/23 08:22 Aspirin Ec 81 Mg Tablet PO 81 mg DAILY ANGELA Administration Docusate Sodium 250 - 500 mg 02/26/23 17:00 03/21/23 08:22 Docusate Sodium 250 Mg Capsule PO 250 mg BID ANGELA Administration Duloxetine HCl 30 mg 02/15/23 13:30 03/21/23 08:22 Duloxetine 30 Mg Capsule PO 30 mg DAILY ANGELA Administration Fluticasone Propionate 1 sprays 02/17/23 09:00 03/21/23 08:24 Fluticasone Nasal [place] CRISTIAN 1 spray DAILY ANGELA Administration Haloperidol 2 mg 02/22/23 13:06 02/26/23 14:41 Haloperidol 5 Mg/Ml Vial IM 2 mg DAILY PRN Administration Agitation Ibuprofen 600 mg 02/15/23 19:57 03/03/23 20:57 Ibuprofen 600 Mg Tablet PO 600 mg Q6HR PRN Administration MINOR PAIN Lidocaine HCl 1 ml 02/23/23 13:54 02/26/23 13:59 Lidocaine Jelly 2% 6 Ml Jel.Pf.Shanda TOP 1 ml TID PRN Administration anal itching pain Lorazepam 0.5 mg 02/21/23 21:00 03/21/23 08:23 Lorazepam 0.5 Mg Tablet SL 0.5 mg BID ANGELA Administration Magnesium Oxide 400 mg 02/16/23 08:00 03/21/23 08:22 Magnesium Oxide 400 Mg Tablet PO 400 mg DAILYWM ANGELA Administration Metformin HCl 1,000 mg 03/17/23 17:00 03/21/23 09:05 Metformin 500 Mg Tablet PO 1,000 mg 0800,1700 ANGELA Administration Multivitamins/Minerals 1 tab 02/18/23 09:00 03/21/23 08:22 Multivitamin W/Minerals Tablet PO 1 tab DAILYWM ANGELA Administration Olanzapine 5 mg 02/23/23 21:00 03/21/23 08:22 Olanzapine Odt 5 Mg Tablet TL 5 mg BID ANGELA Administration Polyethylene Glycol 17 gm 02/17/23 18:00 03/21/23 08:23 Polyethylene Glycol 3350 17 Gm Packet PO 17 gm DAILY ANGELA Administration Senna 8.6 - 17.2 mg 02/26/23 17:00 03/21/23 08:23 Senna 8.6 Mg Tablet PO 8.6 mg BID ANGELA Administration - Lab Result Fish Bone Diagrams: 03/12/23 04:23 03/12/23 04:23 Subjective - Subjective Patient Reports: No Complaints (He is walking in hallways with his walker, is oriented. The SW told him he will likely be discharged Sat (today is ) to a custodial that will take him. It is an adult family home in [place]. They are still finalizing the details) Objective Vital Signs: Vital Signs - 24 hr 03/21/23 08:28 Temperature 36.6 C Heart Rate [ 96 Brachial] Respiratory 18 Rate Blood Pressure 107/64 [Right Brachial artery] O2 Saturation 99 Oxygen O2 Source Room air I&O (Last 24 Hrs): Intake and Output Totals x24h 03/19/23 03/20/23 03/21/23 23:59 23:59 23:59 Intake Total 577 620 0377 Balance 897 808 2888 General: Alert, Oriented x3 HEENT: Mucous membr. moist/pink, Other (Poorly kempt) Neck: Supple Neuro: Alert, Non Focal Cardiovascular: Regular rate Respiratory: No respiratory distress Abdomen: No tenderness Extremities: No clubbing, No edema, Other (Redness and scabs of some toenail beds) - Results Results: Laboratory Results WBC 10.0 x10^3/uL (4.8-10.8) 03/12/23 04: RBC 4.22 10^6/uL (4.70-6.10) L 03/12/23 04: Hgb 12.6 g/dL (14.0-18.0) L 03/12/23 04: Hct 37.4 % (42.0-52.0) L 03/12/23 04:23 MCV 88.6 fL (80.0-94.0) 03/12/23 04: MCH 29.9 pg (27.0-31.0) 03/12/23 04: MCHC 33.7 g/dL (32.0-36.0) 03/12/23 04: RDW 12.8 % (12.0-15.0) 03/12/23 04: Plt Count 309 10^3/uL (130-450) 03/12/23 04: MPV 9.6 fL (7.4-11.4) 03/12/23 04:23 Neut # (Auto) 4.1 10^3/uL (1.5-6.6) 03/05/23 05:20 Lymph # (Auto) 2.8 10^3/uL (1.5-3.5) 03/05/23 05:20 [place] # (Auto) 0.6 10^3/uL (0.0-1.0) 03/05/23 05:20 Eos # (Auto) 0.3 10^3/uL (0.0-0.7) 03/05/23 05:20 Baso # (Auto) 0.0 10^3/uL (0.0-0.1) 03/05/23 05:20 Absolute Nucleated RBC 0.00 x10^3/uL 03/05/23 05:20 Total Counted 100 02/14/23 03:15 Band Neuts % (Manual) 9 % (0-10) 02/14/23 03:15 Abnorm Lymph % (Manual) 0 % 02/14/23 03:15 Nucleated RBC % 0.0 /100WBC 03/05/23 05:20 Neutrophils # (Manual) 18.2 10^3/uL (1.5-6.6) H 02/14/23 03:15 Lymphocytes # (Manual) 1.0 10^3/uL (1.5-3.5) L 02/14/23 03:15 Monocytes # (Manual) 1.2 10^3/uL (0.0-1.0) H 02/14/23 03:15 Eosinophils # (Manual) 0.0 10^3/uL (0-0.7) 02/14/23 03:15 Basophils # (Manual) 0.0 10^3/uL (0-0.1) 02/14/23 03:15 Differential Comment MANUAL DIFFERENTIAL 02/14/23 03:15 Sodium 137 mmol/L (135-145) 03/12/23 04:23 Potassium 3.9 mmol/L (3.5-5.0) 03/12/23 04:23 Chloride 102 mmol/L (101-111) 03/12/23 04:23 Carbon Dioxide 27 mmol/L (21-32) 03/12/23 04:23 Anion Gap 8.0 (6-13) 03/12/23 04:23 BUN 29 mg/dL (6-20) H 03/12/23 04:23 Creatinine 1.3 mg/dL (0.6-1.2) H 03/12/23 04:23 Estimated GFR (MDRD) 57 (>89) L 03/12/23 04:23 Glucose 106 mg/dL (70-100) H 03/12/23 04:23 POC Whole Bld Glucose 103 mg/dL (70 - 100) H 03/14/23 07:38 Estimat Average Glucose 134 mg/dL (70-100) H 02/15/23 05:20 Hemoglobin A1c % 6.3 % (4.27-6.07) H 02/15/23 05:20 Calcium 9.5 mg/dL (8.5-10.3) 03/12/23 04:23 Magnesium 1.5 mg/dL (1.7-2.8) L 02/17/23 05:35 Total Bilirubin 0.3 mg/dL (0.2-1.0) 03/03/23 04:48 AST 25 IU/L (10-42) 03/03/23 04:48 ALT 33 IU/L (10-60) 03/03/23 04:48 Alkaline Phosphatase 77 IU/L (42-121) 03/03/23 04:48 Total Creatine Kinase 440 IU/L (22-269) H 02/23/23 14:10 CK-MB (CK-2) 265.9 ng/mL (0.6-6.3) H 02/14/23 03:15 Total Protein 7.2 g/dL (6.7-8.2) 03/03/23 04:48 Albumin 4.0 g/dL (3.2-5.5) 03/03/23 04:48 Globulin 3.2 g/dL (2.1-4.2) 03/03/23 04:48 Albumin/Globulin Ratio 1.3 (1.0-2.2) 03/03/23 04:48 Lipase 34 U/L (22-51) 02/14/23 03:15 TSH 1.21 uIU/mL (0.34-5.60) 02/14/23 03:15 Urine Color YELLOW 02/18/23 15:10 Urine Clarity CLEAR (CLEAR) 02/18/23 15:10 Urine pH 5.5 PH (5.0-7.5) 02/18/23 15:10 Ur Specific [place] 1.020 (1.002-1.030) 02/18/23 15:10 Urine Protein NEGATIVE mg/dL (NEGATIVE) 02/18/23 15:10 Urine Glucose (UA) NEGATIVE mg/dL (NEGATIVE) 02/18/23 15:10 Urine Ketones NEGATIVE mg/dL (NEGATIVE) 02/18/23 15:10 Urine Occult Blood MODERATE (NEGATIVE) H 02/18/23 15:10 Urine Nitrite NEGATIVE (NEGATIVE) 02/18/23 15:10 Urine Bilirubin NEGATIVE (NEGATIVE) 02/18/23 15:10 Urine Urobilinogen 0.2 (NORMAL) E.U./dL (NORMAL) 02/18/23 15:10 Ur Leukocyte Esterase TRACE (NEGATIVE) H 02/18/23 15:10 Urine RBC 11-25 /HPF (0-5) H 02/18/23 15:10 Urine WBC 6-10 /HPF (0-3) H 02/18/23 15:10 Ur Squamous Epith Cells RARE Squamous (<= Few) 02/18/23 15:10 Urine Bacteria None Seen /HPF (None Seen) 02/18/23 15:10 Urine Sperm PRESENT 02/18/23 15:10 Ur Microscopic Review INDICATED 02/14/23 10:34 Urine Culture Comments INDICATED 02/18/23 15:10 Urine Opiates Screen NEGATIVE (NEGATIVE) 02/14/23 10:34 Ur Oxycodone Screen NEGATIVE (NEGATIVE) 02/14/23 10:34 Urine Methadone Screen NEGATIVE (NEGATIVE) 02/14/23 10:34 Ur Propoxyphene Screen NEGATIVE (NEGATIVE) 02/14/23 10:34 Ur Barbiturates Screen NEGATIVE (NEGATIVE) 02/14/23 10:34 Ur Tricyclics Screen NEGATIVE (NEGATIVE) 02/14/23 10:34 Ur Phencyclidine Scrn NEGATIVE (NEGATIVE) 02/14/23 10:34 Ur Amphetamine Screen NEGATIVE (NEGATIVE) 02/14/23 10:34 U Methamphetamines Scrn NEGATIVE (NEGATIVE) 02/14/23 10:34 U Benzodiazepines Scrn NEGATIVE (NEGATIVE) 02/14/23 10:34 Urine Cocaine Screen NEGATIVE (NEGATIVE) 02/14/23 10:34 U Cannabinoids Screen POSITIVE (NEGATIVE) H 02/14/23 10:34 Ethyl Alcohol < 5.0 mg/dL 02/14/23 03:15
[2023-03-22] MEDS: polyethylene glycoL 3350 17 GM PACKET PO SCH (08:18)
[2023-03-22] MEDS: DULoxetine 30 MG CAPSULE PO SCH (08:19)
[2023-03-22] MEDS: SENNA 8.6 MG TABLET PO SCH ×2 (08:19→20:03)
[2023-03-22] MEDS: DOCUSATE SODIUM 250 MG CAPSULE PO SCH ×2 (08:19→20:02)
[2023-03-22] MEDS: LORazepam 0.5 MG TABLET SL SCH ×2 (08:19→20:02)
[2023-03-22] MEDS: metFORMIN 500 MG TABLET PO SCH ×2 (08:19→16:46)
[2023-03-22] MEDS: FLUTICASONE NASAL SPRAY NAS SCH (08:20)
[2023-03-22] MEDS: ASPIRIN EC 81 MG TABLET PO SCH (08:20)
[2023-03-22] MEDS: OLANZapine ODT 5 MG TABLET TL SCH ×2 (08:20→20:02)
[2023-03-22] MEDS: MULTIVITAMIN W/MINERALS TABLET PO SCH (08:20)
[2023-03-22] MEDS: MAGNESIUM OXIDE 400 MG TABLET PO SCH (08:20)
--- NOTE | 2023-03-22 13:10 | PROVIDER PROGRESS NOTE ---
Assessment/Plan - Problem List (1) Major depressive disorder, recurrent, severe with psychotic symptoms Assessment/Plan: He was admitted with multiple falls. Increasing psychosis. To the point he became catatonic. He has now been here over 35 days. There has been remarkable and positive improvement. Most of the change came from resuming his Risperdal 3 mg twice daily, and adding a benzodiazepine for the catatonia. His psychiatrist let me know that they have been working on permanent placement for him. Its been slow going. He was living with his girlfriend/caregiver. Caregiver burden has been too difficult for her recently. We now have DPOA with his daughter. Daughter is amenable to having him placed. At this time we are awaiting for [facility],an adult family home in [place] to fimalize all the paperwork. Social work, case management are working to get the details together. On 03/21, I sat with the patient to discuss his wishes and to complete a POLST form, which was accomplished. Otherwise there is no new information for this patient. No orders written today (2) No able caregiver in household Assessment/Plan: He was living with his girlfriend/caregiver. Caregiver burden has been too difficult for her recently, and she had to leave him unaccompanied at night, when she worked. Plan: Permanent placement is being worked on by our group social worker, working with his daughter who is now the DPOA (3) Chronic psychosis still present. He is still hallucinating at times. But much more controllable. (4) Chronic kidney disease. Acute kidney injury has resolved in the face of rhabdomyolysis and many falls. His creat of 1.3-1.4 is his new baseline. Patient has been at baseline since approximately February 19. He has no longer needed IV fluids. (5) Type 2 diabetes mellitus, controlled. A1c was 6.3%. He is eating 100% of his meals. Metformin resumed February 22. Glucose is controlled. We stopped fingerstick checks at [facility] many days ago. (6) Rectal fissures or abrasions. Part of his psychosis is that aliens or [place] are shoving things in his rectum. He would use his fingers to manually disimpact himself. He gave himself the rectal cuts. He still says that those things that are tucked into his rectum and sometimes speak to him. But he is having less and less agitation with this. (7) Falls at home. Unclear why he kept on falling. He was not intoxicated. No seizures, no synco pe. No orthostasis. Not under the influence of any recreational substance, however we suspect he got Suboxone patch haphazardly. His last prescription was written a year ago and it was ordered for 13 weeks. However there were still several patches available in a box that his caregiver brought from home. so we suspect he was intermittently oversedated on his buprenorphine patch, so we stopped the patch entirely and he has had no pain complaints. Here he is now walking with a walker and does so on a regular basis. He did have 1 fall in the hospital where he was leaning forward and he started going toward the floor and the nurse pushed him back. (8) Abrasions of multiple sites due to frequent falls. Photographs taken by nursing. These have all healed. (9) Poor hygiene on admission. He is taking showers here on a more regular basis. (10) Abnormal EKG. Echo was done to make sure he did not have cor pulmonale and Echo was normal. (11) Left arm swelling. Duplex Doppler - February 18 ws neg (12) Right third toe infection. Resolved. Completed Keflex February 28. (13) Rhabdomyolysis This was from the falls and has resolved. (14) Catatonia has resolved after restarting Risperdal 3 mg twice daily, and adding a Benzodiazepine. - Current Meds Current Meds: Current Medications Generic Name Dose Route Start Last Admin Trade Name Jyoti PRN Reason Stop Dose Admin Acetaminophen 650 mg 02/15/23 19:57 03/18/23 12:29 Acetaminophen 325 Mg Tablet PO 650 mg Q4HR PRN Administration Pain or Fever > 38C (100.4F) Aspirin 81 mg 02/18/23 09:00 03/22/23 08:20 Aspirin Ec 81 Mg Tablet PO 81 mg DAILY ANGELA Administration Docusate Sodium 250 - 500 mg 02/26/23 17:00 03/22/23 08:19 Docusate Sodium 250 Mg Capsule PO 250 mg BID ANGELA Administration Duloxetine HCl 30 mg 02/15/23 13:30 03/22/23 08:19 Duloxetine 30 Mg Capsule PO 30 mg DAILY ANGELA Administration Fluticasone Propionate 1 sprays 02/17/23 09:00 03/22/23 08:20 Fluticasone Nasal [place] CRISTIAN 1 spray DAILY ANGELA Administration Haloperidol 2 mg 02/22/23 13:06 02/26/23 14:41 Haloperidol 5 Mg/Ml Vial IM 2 mg DAILY PRN Administration Agitation Ibuprofen 600 mg 02/15/23 19:57 03/03/23 20:57 Ibuprofen 600 Mg Tablet PO 600 mg Q6HR PRN Administration MINOR PAIN Lidocaine HCl 1 ml 02/23/23 13:54 02/26/23 13:59 Lidocaine Jelly 2% 6 Ml Jel.Pf.Shanda TOP 1 ml TID PRN Administration anal itching pain Lorazepam 0.5 mg 02/21/23 21:00 03/22/23 08:19 Lorazepam 0.5 Mg Tablet SL 0.5 mg BID ANGELA Administration Magnesium Oxide 400 mg 02/16/23 08:00 03/22/23 08:20 Magnesium Oxide 400 Mg Tablet PO 400 mg DAILYWM ANGELA Administration Metformin HCl 1,000 mg 03/17/23 17:00 03/22/23 08:19 Metformin 500 Mg Tablet PO 1,000 mg 0800,1700 ANGELA Administration Multivitamins/Minerals 1 tab 02/18/23 09:00 03/22/23 08:20 Multivitamin W/Minerals Tablet PO 1 tab DAILYWM ANGELA Administration Olanzapine 5 mg 02/23/23 21:00 03/22/23 08:20 Olanzapine Odt 5 Mg Tablet TL 5 mg BID ANGELA Administration Polyethylene Glycol 17 gm 02/17/23 18:00 03/22/23 08:18 Polyethylene Glycol 3350 17 Gm Packet PO 17 gm DAILY ANGELA Administration Senna 8.6 - 17.2 mg 02/26/23 17:00 03/22/23 08:19 Senna 8.6 Mg Tablet PO 8.6 mg BID ANGELA Administration - Lab Result Fish Bone Diagrams: 03/12/23 04:23 03/12/23 04:23 Subjective - Subjective Patient Reports: No Complaints Objective Vital Signs: Vital Signs - 24 hr 03/22/23 07:40 Temperature 36.7 C Heart Rate [ 63 Brachial] Respiratory 18 Rate Blood Pressure 109/74 [Right Brachial artery] O2 Saturation 97 Oxygen O2 Source Room air I&O (Last 24 Hrs): Intake and Output Totals x24h 03/20/23 03/21/23 03/22/23 23:59 23:59 23:59 Intake Total 778 1933 1040 Output Total 300 Balance 778 1933 740 General: Alert, No acute distress HEENT: Mucous membr. moist/pink Neck: Supple Cardiovascular: Regular rate Respiratory: No respiratory distress Extremities: No clubbing, No edema - Results Results: Laboratory Results WBC 10.0 x10^3/uL (4.8-10.8) 03/12/23 04:23 RBC 4.22 10^6/uL (4.70-6.10) L 03/12/23 04:23 Hgb 12.6 g/dL (14.0-18.0) L 03/12/23 04:23 Hct 37.4 % (42.0-52.0) L 03/12/23 04:23 MCV 88.6 fL (80.0-94.0) 03/12/23 04:23 MCH 29.9 pg (27.0-31.0) 03/12/23 04: MCHC 33.7 g/dL (32.0-36.0) 03/12/23 04: RDW 12.8 % (12.0-15.0) 03/12/23 04:23 Plt Count 309 10^3/uL (130-450) 03/12/23 04:23 MPV 9.6 fL (7.4-11.4) 03/12/23 04:23 Neut # (Auto) 4.1 10^3/uL (1.5-6.6) 03/05/23 05:20 Lymph # (Auto) 2.8 10^3/uL (1.5-3.5) 03/05/23 05:20 [place] # (Auto) 0.6 10^3/uL (0.0-1.0) 03/05/23 05:20 Eos # (Auto) 0.3 10^3/uL (0.0-0.7) 03/05/23 05:20 Baso # (Auto) 0.0 10^3/uL (0.0-0.1) 03/05/23 05:20 Absolute Nucleated RBC 0.00 x10^3/uL 03/05/23 05:20 Total Counted 100 02/14/23 03:15 Band Neuts % (Manual) 9 % (0-10) 02/14/23 03:15 Abnorm Lymph % (Manual) 0 % 02/14/23 03:15 Nucleated RBC % 0.0 /100WBC 03/05/23 05:20 Neutrophils # (Manual) 18.2 10^3/uL (1.5-6.6) H 02/14/23 03:15 Lymphocytes # (Manual) 1.0 10^3/uL (1.5-3.5) L 02/14/23 03:15 Monocytes # (Manual) 1.2 10^3/uL (0.0-1.0) H 02/14/23 03:15 Eosinophils # (Manual) 0.0 10^3/uL (0-0.7) 02/14/23 03:15 Basophils # (Manual) 0.0 10^3/uL (0-0.1) 02/14/23 03:15 Differential Comment MANUAL DIFFERENTIAL 02/14/23 03:15 Sodium 137 mmol/L (135-145) 03/12/23 04:23 Potassium 3.9 mmol/L (3.5-5.0) 03/12/23 04:23 Chloride 102 mmol/L (101-111) 03/12/23 04:23 Carbon Dioxide 27 mmol/L (21-32) 03/12/23 04:23 Anion Gap 8.0 (6-13) 03/12/23 04:23 BUN 29 mg/dL (6-20) H 03/12/23 04:23 Creatinine 1.3 mg/dL (0.6-1.2) H 03/12/23 04:23 Estimated GFR (MDRD) 57 (>89) L 03/12/23 04:23 Glucose 106 mg/dL (70-100) H 03/12/23 04:23 POC Whole Bld Glucose 103 mg/dL (70 - 100) H 03/14/23 07:38 Estimat Average Glucose 134 mg/dL (70-100) H 02/15/23 05:20 Hemoglobin A1c % 6.3 % (4.27-6.07) H 02/15/23 05:20 Calcium 9.5 mg/dL (8.5-10.3) 03/12/23 04:23 Magnesium 1.5 mg/dL (1.7-2.8) L 02/17/23 05:35 Total Bilirubin 0.3 mg/dL (0.2-1.0) 03/03/23 04:48 AST 25 IU/L (10-42) 03/03/23 04:48 ALT 33 IU/L (10-60) 03/03/23 04:48 Alkaline Phosphatase 77 IU/L (42-121) 03/03/23 04:48 Total Creatine Kinase 440 IU/L (22-269) H 02/23/23 14:10 CK-MB (CK-2) 265.9 ng/mL (0.6-6.3) H 02/14/23 03:15 Total Protein 7.2 g/dL (6.7-8.2) 03/03/23 04:48 Albumin 4.0 g/dL (3.2-5.5) 03/03/23 04:48 Globulin 3.2 g/dL (2.1-4.2) 03/03/23 04:48 Albumin/Globulin Ratio 1.3 (1.0-2.2) 03/03/23 04:48 Lipase 34 U/L (22-51) 02/14/23 03:15 TSH 1.21 uIU/mL (0.34-5.60) 02/14/23 03:15 Urine Color YELLOW 02/18/23 15:10 Urine Clarity CLEAR (CLEAR) 02/18/23 15:10 Urine pH 5.5 PH (5.0-7.5) 02/18/23 15:10 Ur Specific [place] 1.020 (1.002-1.030) 02/18/23 15:10 Urine Protein NEGATIVE mg/dL (NEGATIVE) 02/18/23 15:10 Urine Glucose (UA) NEGATIVE mg/dL (NEGATIVE) 02/18/23 15:10 Urine Ketones NEGATIVE mg/dL (NEGATIVE) 02/18/23 15:10 Urine Occult Blood MODERATE (NEGATIVE) H 02/18/23 15:10 Urine Nitrite NEGATIVE (NEGATIVE) 02/18/23 15:10 Urine Bilirubin NEGATIVE (NEGATIVE) 02/18/23 15:10 Urine Urobilinogen 0.2 (NORMAL) E.U./dL (NORMAL) 02/18/23 15:10 Ur Leukocyte Esterase TRACE (NEGATIVE) H 02/18/23 15:10 Urine RBC 11-25 /HPF (0-5) H 02/18/23 15:10 Urine WBC 6-10 /HPF (0-3) H 02/18/23 15:10 Ur Squamous Epith Cells RARE Squamous (<= Few) 02/18/23 15:10 Urine Bacteria None Seen /HPF (None Seen) 02/18/23 15:10 Urine Sperm PRESENT 02/18/23 15:10 Ur Microscopic Review INDICATED 02/14/23 10:34 Urine Culture Comments INDICATED 02/18/23 15:10 Urine Opiates Screen NEGATIVE (NEGATIVE) 02/14/23 10:34 Ur Oxycodone Screen NEGATIVE (NEGATIVE) 02/14/23 10:34 Urine Methadone Screen NEGATIVE (NEGATIVE) 02/14/23 10:34 Ur Propoxyphene Screen NEGATIVE (NEGATIVE) 02/14/23 10:34 Ur Barbiturates Screen NEGATIVE (NEGATIVE) 02/14/23 10:34 Ur Tricyclics Screen NEGATIVE (NEGATIVE) 02/14/23 10:34 Ur Phencyclidine Scrn NEGATIVE (NEGATIVE) 02/14/23 10:34 Ur Amphetamine Screen NEGATIVE (NEGATIVE) 02/14/23 10:34 U Methamphetamines Scrn NEGATIVE (NEGATIVE) 02/14/23 10:34 U Benzodiazepines Scrn NEGATIVE (NEGATIVE) 02/14/23 10:34 Urine Cocaine Screen NEGATIVE (NEGATIVE) 02/14/23 10:34 U Cannabinoids Screen POSITIVE (NEGATIVE) H 02/14/23 10:34 Ethyl Alcohol < 5.0 mg/dL 02/14/23 03:15
[2023-03-23] MEDS: ASPIRIN EC 81 MG TABLET PO SCH (07:51)
[2023-03-23] MEDS: DULoxetine 30 MG CAPSULE PO SCH (07:51)
[2023-03-23] MEDS: polyethylene glycoL 3350 17 GM PACKET PO SCH (07:51)
[2023-03-23] MEDS: metFORMIN 500 MG TABLET PO SCH ×2 (07:52→16:57)
[2023-03-23] MEDS: MAGNESIUM OXIDE 400 MG TABLET PO SCH (07:52)
[2023-03-23] MEDS: OLANZapine ODT 5 MG TABLET TL SCH ×2 (07:52→20:24)
[2023-03-23] MEDS: DOCUSATE SODIUM 250 MG CAPSULE PO SCH ×2 (07:52→20:24)
[2023-03-23] MEDS: LORazepam 0.5 MG TABLET SL SCH ×2 (07:52→20:24)
[2023-03-23] MEDS: SENNA 8.6 MG TABLET PO SCH ×2 (07:53→20:24)
[2023-03-23] MEDS: FLUTICASONE NASAL SPRAY NAS SCH (07:53)
[2023-03-23] MEDS: MULTIVITAMIN W/MINERALS TABLET PO SCH (07:53)
--- NOTE | 2023-03-23 11:00 | PROVIDER PROGRESS NOTE ---
Assessment/Plan - Problem List (1) Major depressive disorder, recurrent, severe with psychotic symptoms Assessment/Plan: He was admitted with multiple falls. Increasing psychosis. To the point he became catatonic. He has now been here over 35 days. There has been remarkable and positive improvement. Most of the change came from resuming his Risperdal 3 mg twice daily, and adding a benzodiazepine for the catatonia. His psychiatrist let us know that they have been working on permanent placement for him. Its been slow going. He was living with his girlfriend/caregiver. Caregiver burden has been too difficult for her recently. We now have DPOA with his daughter. Daughter is amenable to having him placed. At this time we are awaiting for an adult family home to finalize all the paperwork. Social work, case management are working to get the details together. On 03/21, I sat with the patient to discuss his wishes and to complete a POLST form, which was accomplished. Otherwise there is no new information for this patient. No orders written today (2) No able caregiver in household Assessment/Plan: He was living with his girlfriend/caregiver. Caregiver burden has been too difficult for her recently, and she had to leave him unaccompanied at night, when she worked. Plan: Permanent placement is being worked on by our psychotherapist social worker, working with his daughter who is now the DPOA. There is a skilled nursing that will likely take him, and that will probably be next week per SW. (3) Chronic psychosis still present. He is still hallucinating at times. But much more controllable. (4) Chronic kidney disease. Acute kidney injury has resolved in the face of rhabdomyolysis and many falls. His creat of 1.3-1.4 is his new baseline. Patient has been at baseline since approximately February 19. He has no longer needed IV fluids. (5) Type 2 diabetes mellitus, controlled. A1c was 6.3%. He is eating 100% of his meals. Metformin resumed February 22. Glucose is controlled. We stopped fingerstick checks at [facility] many days ago. (6) Rectal fissures or abrasions. Part of his psychosis is that aliens or Indians are shoving things in his rectum. He would use his fingers to manually disimpact himself. He gave himself the rectal cuts. He still says that those things that are tucked into his rectum and sometimes speak to him. But he is having less and less agitation with this. (7) Falls at home. Unclear why he kept on falling. He was not intoxicated. No seizures, no syncope. No orthostasis. Not under the influence of any recreational substance, however we suspect he got Suboxone patch haphazardly. His last prescription was written a year ago and it was ordered for 13 weeks. However there were still several patches available in a box that his caregiver brought from home. so we suspect he was intermittently oversedated on his buprenorphine patch, so we stopped the patch entirely and he has had no pain complaints. Here he is now walking with a walker and does so on a regular basis. He did have 1 fall in the hospital where he was leaning forward and he started going toward the floor and the nurse pushed him back. (8) Abrasions of multiple sites due to frequent falls. Photographs taken by nursing. These have all healed. (9) Poor hygiene on admission. He is taking showers here on a more regular basis. (10) Abnormal EKG. Echo was done to make sure he did not have cor pulmonale and Echo was normal. (11) Left arm swelling. Duplex Doppler - February 18 ws neg (12) Right third toe infection. Resolved. Completed Keflex February 28. (13) Rhabdomyolysis This was from the falls and has resolved. (14) Catatonia has resolved after restarting Risperdal 3 mg twice daily, and adding a Benzodiazepine. - Current Meds Current Meds: Current Medications Generic Name Dose Route Start Last Admin Trade Name Jyoti PRN Reason Stop Dose Admin Acetaminophen 650 mg 02/15/23 19:57 03/18/23 12:29 Acetaminophen 325 Mg Tablet PO 650 mg Q4HR PRN Administration Pain or Fever > 38C (100.4F) Aspirin 81 mg 02/18/23 09:00 03/23/23 07:51 Aspirin Ec 81 Mg Tablet PO 81 mg DAILY ANGELA Administration Docusate Sodium 250 - 500 mg 02/26/23 17:00 03/23/23 07:52 Docusate Sodium 250 Mg Capsule PO 250 mg BID ANGELA Administration Duloxetine HCl 30 mg 02/15/23 13:30 03/23/23 07:51 Duloxetine 30 Mg Capsule PO 30 mg DAILY ANGELA Administration Fluticasone Propionate 1 sprays 02/17/23 09:00 03/23/23 07:53 Fluticasone Nasal [place] CRISTIAN 1 spray DAILY ANGELA Administration Haloperidol 2 mg 02/22/23 13:06 02/26/23 14:41 Haloperidol 5 Mg/Ml Vial IM 2 mg DAILY PRN Administration Agitation Ibuprofen 600 mg 02/15/23 19:57 03/03/23 20:57 Ibuprofen 600 Mg Tablet PO 600 mg Q6HR PRN Administration MINOR PAIN Lidocaine HCl 1 ml 02/23/23 13:54 02/26/23 13:59 Lidocaine Jelly 2% 6 Ml Jel.Pf.Shanda TOP 1 ml TID PRN Administration anal itching pain Lorazepam 0.5 mg 02/21/23 21:00 03/23/23 07:52 Lorazepam 0.5 Mg Tablet SL 0.5 mg BID ANGELA Administration Magnesium Oxide 400 mg 02/16/23 08:00 03/23/23 07:52 Magnesium Oxide 400 Mg Tablet PO 400 mg DAILYWM ANGELA Administration Metformin HCl 1,000 mg 03/17/23 17:00 03/23/23 07:52 Metformin 500 Mg Tablet PO 1,000 mg 0800,1700 ANGELA Administration Multivitamins/Minerals 1 tab 02/18/23 09:00 03/23/23 07:53 Multivitamin W/Minerals Tablet PO 1 tab DAILYWM ANGELA Administration Olanzapine 5 mg 02/23/23 21:00 03/23/23 07:52 Olanzapine Odt 5 Mg Tablet TL 5 mg BID ANGELA Administration Polyethylene Glycol 17 gm 02/17/23 18:00 03/23/23 07:51 Polyethylene Glycol 3350 17 Gm Packet PO 17 gm DAILY ANGELA Administration Senna 8.6 - 17.2 mg 02/26/23 17:00 03/23/23 07:53 Senna 8.6 Mg Tablet PO 8.6 mg BID ANGELA Administration - Lab Result Fish Bone Diagrams: 03/12/23 04:23 03/12/23 04:23 Subjective - Subjective Patient Reports: No Complaints Objective Vital Signs: Vital Signs - 24 hr 03/23/23 07:54 Temperature 36.3 C L Heart Rate [ 97 Brachial] Respiratory 16 Rate Blood Pressure 114/65 [Left Brachial artery] O2 Saturation 100 Oxygen O2 Source Room air I&O (Last 24 Hrs): Intake and Output Totals x24h 03/21/23 03/22/23 03/23/23 23:59 23:59 23:59 Intake Total 1932 1520 240 Output Total 300 Balance 1932 1220 240 General: Alert HEENT: Mucous membr. moist/pink Neck: Supple Abdomen: No tenderness - Results Results: Laboratory Results WBC 10.0 x10^3/uL (4.8-10.8) 03/12/23 04: RBC 4.22 10^6/uL (4.70-6.10) L 03/12/23 04: Hgb 12.6 g/dL (14.0-18.0) L 03/12/23 04: Hct 37.4 % (42.0-52.0) L 03/12/23 04: MCV 88.6 fL (80.0-94.0) 03/12/23 04: MCH 29.9 pg (27.0-31.0) 03/12/23 04: MCHC 33.7 g/dL (32.0-36.0) 03/12/23 04: RDW 12.8 % (12.0-15.0) 03/12/23 04: Plt Count 309 10^3/uL (130-450) 03/12/23 04: MPV 9.6 fL (7.4-11.4) 03/12/23 04: Neut # (Auto) 4.1 10^3/uL (1.5-6.6) 03/05/23 05:20 Lymph # (Auto) 2.8 10^3/uL (1.5-3.5) 03/05/23 05:20 [place] # (Auto) 0.6 10^3/uL (0.0-1.0) 03/05/23 05:20 Eos # (Auto) 0.3 10^3/uL (0.0-0.7) 03/05/23 05:20 Baso # (Auto) 0.0 10^3/uL (0.0-0.1) 03/05/23 05:20 Absolute Nucleated RBC 0.00 x10^3/uL 03/05/23 05:20 Total Counted 100 02/14/23 03:15 Band Neuts % (Manual) 9 % (0-10) 02/14/23 03:15 Abnorm Lymph % (Manual) 0 % 02/14/23 03:15 Nucleated RBC % 0.0 /100WBC 03/05/23 05:20 Neutrophils # (Manual) 18.2 10^3/uL (1.5-6.6) H 02/14/23 03:15 Lymphocytes # (Manual) 1.0 10^3/uL (1.5-3.5) L 02/14/23 03:15 Monocytes # (Manual) 1.2 10^3/uL (0.0-1.0) H 02/14/23 03:15 Eosinophils # (Manual) 0.0 10^3/uL (0-0.7) 02/14/23 03:15 Basophils # (Manual) 0.0 10^3/uL (0-0.1) 02/14/23 03:15 Differential Comment MANUAL DIFFERENTIAL 02/14/23 03:15 Sodium 137 mmol/L (135-145) 03/12/23 04:23 Potassium 3.9 mmol/L (3.5-5.0) 03/12/23 04:23 Chloride 102 mmol/L (101-111) 03/12/23 04:23 Carbon Dioxide 27 mmol/L (21-32) 03/12/23 04:23 Anion Gap 8.0 (6-13) 03/12/23 04:23 BUN 29 mg/dL (6-20) H 03/12/23 04:23 Creatinine 1.3 mg/dL (0.6-1.2) H 03/12/23 04:23 Estimated GFR (MDRD) 57 (>89) L 03/12/23 04:23 Glucose 106 mg/dL (70-100) H 03/12/23 04:23 POC Whole Bld Glucose 103 mg/dL (70 - 100) H 03/14/23 07:38 Estimat Average Glucose 134 mg/dL (70-100) H 02/15/23 05:20 Hemoglobin A1c % 6.3 % (4.27-6.07) H 02/15/23 05:20 Calcium 9.5 mg/dL (8.5-10.3) 03/12/23 04:23 Magnesium 1.5 mg/dL (1.7-2.8) L 02/17/23 05:35 Total Bilirubin 0.3 mg/dL (0.2-1.0) 03/03/23 04:48 AST 25 IU/L (10-42) 03/03/23 04:48 ALT 33 IU/L (10-60) 03/03/23 04:48 Alkaline Phosphatase 77 IU/L (42-121) 03/03/23 04:48 Total Creatine Kinase 440 IU/L (22-269) H 02/23/23 14:10 CK-MB (CK-2) 265.9 ng/mL (0.6-6.3) H 02/14/23 03:15 Total Protein 7.2 g/dL (6.7-8.2) 03/03/23 04:48 Albumin 4.0 g/dL (3.2-5.5) 03/03/23 04:48 Globulin 3.2 g/dL (2.1-4.2) 03/03/23 04:48 Albumin/Globulin Ratio 1.3 (1.0-2.2) 03/03/23 04:48 Lipase 34 U/L (22-51) 02/14/23 03:15 TSH 1.21 uIU/mL (0.34-5.60) 02/14/23 03:15 Urine Color YELLOW 02/18/23 15:10 Urine Clarity CLEAR (CLEAR) 02/18/23 15:10 Urine pH 5.5 PH (5.0-7.5) 02/18/23 15:10 Ur Specific [place] 1.020 (1.002-1.030) 02/18/23 15:10 Urine Protein NEGATIVE mg/dL (NEGATIVE) 02/18/23 15:10 Urine Glucose (UA) NEGATIVE mg/dL (NEGATIVE) 02/18/23 15:10 Urine Ketones NEGATIVE mg/dL (NEGATIVE) 02/18/23 15:10 Urine Occult Blood MODERATE (NEGATIVE) H 02/18/23 15:10 Urine Nitrite NEGATIVE (NEGATIVE) 02/18/23 15:10 Urine Bilirubin NEGATIVE (NEGATIVE) 02/18/23 15:10 Urine Urobilinogen 0.2 (NORMAL) E.U./dL (NORMAL) 02/18/23 15:10 Ur Leukocyte Esterase TRACE (NEGATIVE) H 02/18/23 15:10 Urine RBC 11-25 /HPF (0-5) H 02/18/23 15:10 Urine WBC 6-10 /HPF (0-3) H 02/18/23 15:10 Ur Squamous Epith Cells RARE Squamous (<= Few) 02/18/23 15:10 Urine Bacteria None Seen /HPF (None Seen) 02/18/23 15:10 Urine Sperm PRESENT 02/18/23 15:10 Ur Microscopic Review INDICATED 02/14/23 10:34 Urine Culture Comments INDICATED 02/18/23 15:10 Urine Opiates Screen NEGATIVE (NEGATIVE) 02/14/23 10:34 Ur Oxycodone Screen NEGATIVE (NEGATIVE) 02/14/23 10:34 Urine Methadone Screen NEGATIVE (NEGATIVE) 02/14/23 10:34 Ur Propoxyphene Screen NEGATIVE (NEGATIVE) 02/14/23 10:34 Ur Barbiturates Screen NEGATIVE (NEGATIVE) 02/14/23 10:34 Ur Tricyclics Screen NEGATIVE (NEGATIVE) 02/14/23 10:34 Ur Phencyclidine Scrn NEGATIVE (NEGATIVE) 02/14/23 10:34 Ur Amphetamine Screen NEGATIVE (NEGATIVE) 02/14/23 10:34 U Methamphetamines Scrn NEGATIVE (NEGATIVE) 02/14/23 10:34 U Benzodiazepines Scrn NEGATIVE (NEGATIVE) 02/14/23 10:34 Urine Cocaine Screen NEGATIVE (NEGATIVE) 02/14/23 10:34 U Cannabinoids Screen POSITIVE (NEGATIVE) H 02/14/23 10:34 Ethyl Alcohol < 5.0 mg/dL 02/14/23 03:15
[2023-03-24] MEDS: polyethylene glycoL 3350 17 GM PACKET PO SCH (07:28)
[2023-03-24] MEDS: metFORMIN 500 MG TABLET PO SCH ×2 (07:29→17:11)
[2023-03-24] MEDS: LORazepam 0.5 MG TABLET SL SCH ×2 (07:29→21:19)
[2023-03-24] MEDS: ASPIRIN EC 81 MG TABLET PO SCH (07:29)
[2023-03-24] MEDS: MAGNESIUM OXIDE 400 MG TABLET PO SCH (07:29)
[2023-03-24] MEDS: DULoxetine 30 MG CAPSULE PO SCH (07:29)
[2023-03-24] MEDS: DOCUSATE SODIUM 250 MG CAPSULE PO SCH ×2 (07:30→21:20)
[2023-03-24] MEDS: SENNA 8.6 MG TABLET PO SCH ×2 (07:30→21:20)
[2023-03-24] MEDS: OLANZapine ODT 5 MG TABLET TL SCH ×2 (07:30→21:20)
[2023-03-24] MEDS: FLUTICASONE NASAL SPRAY NAS SCH (07:30)
[2023-03-24] MEDS: MULTIVITAMIN W/MINERALS TABLET PO SCH (07:30)
--- NOTE | 2023-03-24 10:12 | PROVIDER PROGRESS NOTE ---
Assessment/Plan - Problem List (1) Major depressive disorder, recurrent, severe with psychotic symptoms Assessment/Plan: He was admitted with multiple falls. Increasing psychosis. To the point he became catatonic. He has now been here over 35 days. There has been remarkable and positive improvement. Most of the change came from resuming his Risperdal 3 mg twice daily, and adding a benzodiazepine for the catatonia. His psychiatrist let us know that they have been working on permanent placement for him. Its been slow going. He was living with his girlfriend/caregiver. Caregiver burden has been too difficult for her recently. We now have DPOA with his daughter. Daughter is amenable to having him placed. At this time we are awaiting for an adult family home to finalize all the paperwork. Social work, case management are working to get the details together. On 03/21, I sat with the patient to discuss his wishes and to complete a POLST form, which was accomplished. Otherwise there is no new information for this patient. No orders written today (2) No able caregiver in household Assessment/Plan: He was living with his girlfriend/caregiver. Caregiver burden has been too difficult for her recently, and she had to leave him unaccompanied at night, when she worked. Plan: Permanent placement is being worked on by our dialysis social worker, working with his daughter who is now the DPOA. There is a [facility] that will likely take him, and that will probably be next week per SW. (3) Chronic psychosis still present. He is still hallucinating at times. But much more controllable. (4) Chronic kidney disease. Acute kidney injury has resolved in the face of rhabdomyolysis and many falls. His creat of 1.3-1.4 is his new baseline. Patient has been at baseline since approximately February 19. He has no longer needed IV fluids. (5) Type 2 diabetes mellitus, controlled. A1c was 6.3%. He is eating 100% of his meals. Metformin resumed February 22. Glucose is controlled. We stopped fingerstick checks at [facility] many days ago. (6) Rectal fissures or abrasions. Part of his psychosis is that aliens or Indians are shoving things in his rectum. He would use his fingers to manually disimpact himself. He gave himself the rectal cuts. He still says that those things that are tucked into his rectum and sometimes speak to him. But he is having less and less agitation with this. (7) Falls at home. Unclear why he kept on falling. He was not intoxicated. No seizures, no syncope. No orthostasis. Not under the influence of any recreational substance, however we suspect he got Suboxone patch haphazardly. His last prescription was written a year ago and it was ordered for 13 weeks. However there were still several patches available in a box that his caregiver brought from home. so we suspect he was intermittently oversedated on his buprenorphine patch, so we stopped the patch entirely and he has had no pain complaints. Here he is now walking with a walker and does so on a regular basis. He did have 1 fall in the hospital where he was leaning forward and he started going toward the floor and the nurse pushed him back. (8) Abrasions of multiple sites due to frequent falls. Photographs taken by nursing. These have all healed. (9) Poor hygiene on admission. He is taking showers here on a more regular basis. (10) Abnormal EKG. Echo was done to make sure he did not have cor pulmonale and Echo was normal. (11) Left arm swelling. Duplex Doppler - February 18 ws neg (12) Right third toe infection. Resolved. Completed Keflex February 28. (13) Rhabdomyolysis This was from the falls and has resolved. (14) Catatonia has resolved after restarting Risperdal 3 mg twice daily, and adding a Benzodiazepine. - Current Meds Current Meds: Current Medications Generic Name Dose Route Start Last Admin Trade Name Jyoti PRN Reason Stop Dose Admin Acetaminophen 650 mg 02/15/23 19:57 03/18/23 12:29 Acetaminophen 325 Mg Tablet PO 650 mg Q4HR PRN Administration Pain or Fever > 38C (100.4F) Aspirin 81 mg 02/18/23 09:00 03/24/23 07:29 Aspirin Ec 81 Mg Tablet PO 81 mg DAILY ANGELA Administration Docusate Sodium 250 - 500 mg 02/26/23 17:00 03/24/23 07:30 Docusate Sodium 250 Mg Capsule PO 250 mg BID ANGELA Administration Duloxetine HCl 30 mg 02/15/23 13:30 03/24/23 07:29 Duloxetine 30 Mg Capsule PO 30 mg DAILY ANGELA Administration Fluticasone Propionate 1 sprays 02/17/23 09:00 03/24/23 07:30 Fluticasone Nasal [place] CRISTIAN 1 spray DAILY ANGELA Administration Haloperidol 2 mg 02/22/23 13:06 02/26/23 14:41 Haloperidol 5 Mg/Ml Vial IM 2 mg DAILY PRN Administration Agitation Ibuprofen 600 mg 02/15/23 19:57 03/03/23 20:57 Ibuprofen 600 Mg Tablet PO 600 mg Q6HR PRN Administration MINOR PAIN Lidocaine HCl 1 ml 02/23/23 13:54 02/26/23 13:59 Lidocaine Jelly 2% 6 Ml Jel.Pf.Shanda TOP 1 ml TID PRN Administration anal itching pain Lorazepam 0.5 mg 02/21/23 21:00 03/24/23 07:29 Lorazepam 0.5 Mg Tablet SL 0.5 mg BID ANGELA Administration Magnesium Oxide 400 mg 02/16/23 08:00 03/24/23 07:29 Magnesium Oxide 400 Mg Tablet PO 400 mg DAILYWM ANGELA Administration Metformin HCl 1,000 mg 03/17/23 17:00 03/24/23 07:29 Metformin 500 Mg Tablet PO 1,000 mg 0800,1700 ANGELA Administration Multivitamins/Minerals 1 tab 02/18/23 09:00 03/24/23 07:30 Multivitamin W/Minerals Tablet PO 1 tab DAILYWM ANGELA Administration Olanzapine 5 mg 02/23/23 21:00 03/24/23 07:30 Olanzapine Odt 5 Mg Tablet TL 5 mg BID ANGELA Administration Polyethylene Glycol 17 gm 02/17/23 18:00 03/24/23 07:28 Polyethylene Glycol 3350 17 Gm Packet PO 17 gm DAILY ANGELA Administration Senna 8.6 - 17.2 mg 02/26/23 17:00 03/24/23 07:30 Senna 8.6 Mg Tablet PO 8.6 mg BID ANGELA Administration - Lab Result Fish Bone Diagrams: 03/12/23 04:23 03/12/23 04:23 Subjective - Subjective Patient Reports: No Complaints Objective Vital Signs: Vital Signs - 24 hr 03/24/23 07:27 Temperature 36.4 C L Heart Rate [ 64 Brachial] Respiratory 16 Rate Blood Pressure 131/64 H [Right Brachial artery] O2 Saturation 93 Oxygen O2 Source Room air I&O (Last 24 Hrs): Intake and Output Totals x24h 03/22/23 03/23/23 03/24/23 23:59 23:59 23:59 Intake Total 1520 1320 240 Output Total 300 Balance 1220 1320 240 General: Alert HEENT: Mucous membr. moist/pink Neck: Supple Neuro: Alert, Non Focal Cardiovascular: Regular rate Respiratory: No respiratory distress Abdomen: No tenderness - Results Results: Laboratory Results WBC 10.0 x10^3/uL (4.8-10.8) 03/12/23 04: RBC 4.22 10^6/uL (4.70-6.10) L 03/12/23 04: Hgb 12.6 g/dL (14.0-18.0) L 03/12/23 04: Hct 37.4 % (42.0-52.0) L 03/12/23 04: MCV 88.6 fL (80.0-94.0) 03/12/23 04: MCH 29.9 pg (27.0-31.0) 03/12/23 04: MCHC 33.7 g/dL (32.0-36.0) 03/12/23 04: RDW 12.8 % (12.0-15.0) 03/12/23 04: Plt Count 309 10^3/uL (130-450) 03/12/23 04: MPV 9.6 fL (7.4-11.4) 03/12/23 04:23 Neut # (Auto) 4.1 10^3/uL (1.5-6.6) 03/05/23 05:20 Lymph # (Auto) 2.8 10^3/uL (1.5-3.5) 03/05/23 05:20 [place] # (Auto) 0.6 10^3/uL (0.0-1.0) 03/05/23 05:20 Eos # (Auto) 0.3 10^3/uL (0.0-0.7) 03/05/23 05:20 Baso # (Auto) 0.0 10^3/uL (0.0-0.1) 03/05/23 05:20 Absolute Nucleated RBC 0.00 x10^3/uL 03/05/23 05:20 Total Counted 100 02/14/23 03:15 Band Neuts % (Manual) 9 % (0-10) 02/14/23 03:15 Abnorm Lymph % (Manual) 0 % 02/14/23 03:15 Nucleated RBC % 0.0 /100WBC 03/05/23 05:20 Neutrophils # (Manual) 18.2 10^3/uL (1.5-6.6) H 02/14/23 03:15 Lymphocytes # (Manual) 1.0 10^3/uL (1.5-3.5) L 02/14/23 03:15 Monocytes # (Manual) 1.2 10^3/uL (0.0-1.0) H 02/14/23 03:15 Eosinophils # (Manual) 0.0 10^3/uL (0-0.7) 02/14/23 03:15 Basophils # (Manual) 0.0 10^3/uL (0-0.1) 02/14/23 03:15 Differential Comment MANUAL DIFFERENTIAL 02/14/23 03:15 Sodium 137 mmol/L (135-145) 03/12/23 04:23 Potassium 3.9 mmol/L (3.5-5.0) 03/12/23 04:23 Chloride 102 mmol/L (101-111) 03/12/23 04:23 Carbon Dioxide 27 mmol/L (21-32) 03/12/23 04:23 Anion Gap 8.0 (6-13) 03/12/23 04:23 BUN 29 mg/dL (6-20) H 03/12/23 04:23 Creatinine 1.3 mg/dL (0.6-1.2) H 03/12/23 04:23 Estimated GFR (MDRD) 57 (>89) L 03/12/23 04:23 Glucose 106 mg/dL (70-100) H 03/12/23 04:23 POC Whole Bld Glucose 103 mg/dL (70 - 100) H 03/14/23 07:38 Estimat Average Glucose 134 mg/dL (70-100) H 02/15/23 05:20 Hemoglobin A1c % 6.3 % (4.27-6.07) H 02/15/23 05:20 Calcium 9.5 mg/dL (8.5-10.3) 03/12/23 04:23 Magnesium 1.5 mg/dL (1.7-2.8) L 02/17/23 05:35 Total Bilirubin 0.3 mg/dL (0.2-1.0) 03/03/23 04:48 AST 25 IU/L (10-42) 03/03/23 04:48 ALT 33 IU/L (10-60) 03/03/23 04:48 Alkaline Phosphatase 77 IU/L (42-121) 03/03/23 04:48 Total Creatine Kinase 440 IU/L (22-269) H 02/23/23 14:10 CK-MB (CK-2) 265.9 ng/mL (0.6-6.3) H 02/14/23 03:15 Total Protein 7.2 g/dL (6.7-8.2) 03/03/23 04:48 Albumin 4.0 g/dL (3.2-5.5) 03/03/23 04:48 Globulin 3.2 g/dL (2.1-4.2) 03/03/23 04:48 Albumin/Globulin Ratio 1.3 (1.0-2.2) 03/03/23 04:48 Lipase 34 U/L (22-51) 02/14/23 03:15 TSH 1.21 uIU/mL (0.34-5.60) 02/14/23 03:15 Urine Color YELLOW 02/18/23 15:10 Urine Clarity CLEAR (CLEAR) 02/18/23 15:10 Urine pH 5.5 PH (5.0-7.5) 02/18/23 15:10 Ur Specific [place] 1.020 (1.002-1.030) 02/18/23 15:10 Urine Protein NEGATIVE mg/dL (NEGATIVE) 02/18/23 15:10 Urine Glucose (UA) NEGATIVE mg/dL (NEGATIVE) 02/18/23 15:10 Urine Ketones NEGATIVE mg/dL (NEGATIVE) 02/18/23 15:10 Urine Occult Blood MODERATE (NEGATIVE) H 02/18/23 15:10 Urine Nitrite NEGATIVE (NEGATIVE) 02/18/23 15:10 Urine Bilirubin NEGATIVE (NEGATIVE) 02/18/23 15:10 Urine Urobilinogen 0.2 (NORMAL) E.U./dL (NORMAL) 02/18/23 15:10 Ur Leukocyte Esterase TRACE (NEGATIVE) H 02/18/23 15:10 Urine RBC 11-25 /HPF (0-5) H 02/18/23 15:10 Urine WBC 6-10 /HPF (0-3) H 02/18/23 15:10 Ur Squamous Epith Cells RARE Squamous (<= Few) 02/18/23 15:10 Urine Bacteria None Seen /HPF (None Seen) 02/18/23 15:10 Urine Sperm PRESENT 02/18/23 15:10 Ur Microscopic Review INDICATED 02/14/23 10:34 Urine Culture Comments INDICATED 02/18/23 15:10 Urine Opiates Screen NEGATIVE (NEGATIVE) 02/14/23 10:34 Ur Oxycodone Screen NEGATIVE (NEGATIVE) 02/14/23 10:34 Urine Methadone Screen NEGATIVE (NEGATIVE) 02/14/23 10:34 Ur Propoxyphene Screen NEGATIVE (NEGATIVE) 02/14/23 10:34 Ur Barbiturates Screen NEGATIVE (NEGATIVE) 02/14/23 10:34 Ur Tricyclics Screen NEGATIVE (NEGATIVE) 02/14/23 10:34 Ur Phencyclidine Scrn NEGATIVE (NEGATIVE) 02/14/23 10:34 Ur Amphetamine Screen NEGATIVE (NEGATIVE) 02/14/23 10:34 U Methamphetamines Scrn NEGATIVE (NEGATIVE) 02/14/23 10:34 U Benzodiazepines Scrn NEGATIVE (NEGATIVE) 02/14/23 10:34 Urine Cocaine Screen NEGATIVE (NEGATIVE) 02/14/23 10:34 U Cannabinoids Screen POSITIVE (NEGATIVE) H 02/14/23 10:34 Ethyl Alcohol < 5.0 mg/dL 02/14/23 03:15
[2023-03-25] MEDS: SENNA 8.6 MG TABLET PO SCH ×2 (08:43→21:22)
[2023-03-25] MEDS: metFORMIN 500 MG TABLET PO SCH ×2 (08:43→17:58)
[2023-03-25] MEDS: polyethylene glycoL 3350 17 GM PACKET PO SCH (08:44)
[2023-03-25] MEDS: LORazepam 0.5 MG TABLET SL SCH ×2 (08:44→21:22)
[2023-03-25] MEDS: MAGNESIUM OXIDE 400 MG TABLET PO SCH (08:44)
[2023-03-25] MEDS: ASPIRIN EC 81 MG TABLET PO SCH (08:44)
[2023-03-25] MEDS: DOCUSATE SODIUM 250 MG CAPSULE PO SCH ×2 (08:44→21:22)
[2023-03-25] MEDS: DULoxetine 30 MG CAPSULE PO SCH (08:44)
[2023-03-25] MEDS: MULTIVITAMIN W/MINERALS TABLET PO SCH (08:44)
[2023-03-25] MEDS: OLANZapine ODT 5 MG TABLET TL SCH ×2 (08:44→21:22)
[2023-03-25] MEDS: FLUTICASONE NASAL SPRAY NAS SCH (08:45)
--- NOTE | 2023-03-25 14:51 | PROVIDER PROGRESS NOTE ---
Subjective - Prog Note Date Prog Note Date: 03/25/23 Prog Note Time: 14:49 - Subjective Subjective: he stops by case managment almost daily to ask when he can leave . walking on his own, eating well, able to do ADLs Current Medications - Current Medications Current Medications: Active Medications Acetaminophen (Acetaminophen 325 Mg Tablet) 650 mg PO Q4HR PRN PRN Reason: Pain or Fever > 38C (100.4F) Last Admin: 03/18/23 12:29 Dose: 650 mg Aspirin (Aspirin Ec 81 Mg Tablet) 81 mg PO DAILY [facility] Last Admin: 03/25/23 08:44 Dose: 81 mg Docusate Sodium (Docusate Sodium 250 Mg Capsule) 250 - 500 mg PO BID [facility] Last Admin: 03/25/23 08:44 Dose: 250 mg Duloxetine HCl (Duloxetine 30 Mg Capsule) 30 mg PO DAILY [facility] Last Admin: 03/25/23 08:44 Dose: 30 mg Fluticasone Propionate (Fluticasone Nasal [place]) 1 sprays CRISTIAN DAILY [facility] Last Admin: 03/25/23 08:45 Dose: 1 spray Haloperidol (Haloperidol 5 Mg/Ml Vial) 2 mg IM DAILY PRN PRN Reason: Agitation Last Admin: 02/26/23 14:41 Dose: 2 mg Hydrocortisone (Hydrocortisone 1% Cream 28 Gm Tube) 1 applic TOP TID PRN PRN Reason: ITCHING Ibuprofen (Ibuprofen 600 Mg Tablet) 600 mg PO Q6HR PRN PRN Reason: MINOR PAIN Last Admin: 03/03/23 20:57 Dose: 600 mg Lidocaine HCl (Lidocaine Jelly 2% 6 Ml Jel.Pf.Shanda) 1 ml TOP TID PRN PRN Reason: anal itching pain Last Admin: 02/26/23 13:59 Dose: 1 ml Lorazepam (Lorazepam 0.5 Mg Tablet) 0.5 mg SL BID [facility] Last Admin: 03/25/23 08:44 Dose: 0.5 mg Magnesium Oxide (Magnesium Oxide 400 Mg Tablet) 400 mg PO DAILYWM [facility] Last Admin: 03/25/23 08:44 Dose: 400 mg Metformin HCl (Metformin 500 Mg Tablet) 1,000 mg PO 0800,1700 [facility] Last Admin: 03/25/23 08:43 Dose: 1,000 mg Multivitamins/Minerals (Multivitamin W/Minerals Tablet) 1 tab PO DAILYWM [facility] Last Admin: 03/25/23 08:44 Dose: 1 tab Olanzapine (Olanzapine Odt 5 Mg Tablet) 5 mg TL BID [facility] Last Admin: 03/25/23 08:44 Dose: 5 mg Ondansetron HCl (Ondansetron 4 Mg/2 Ml Vial) 4 mg IVP Q6HR PRN PRN Reason: Nausea / Vomiting Polyethylene Glycol (Polyethylene Glycol 3350 17 Gm Packet) 17 gm PO DAILY [facility] Last Admin: 03/25/23 08:44 Dose: Not Given Senna (Senna 8.6 Mg Tablet) 8.6 - 17.2 mg PO BID [facility] Last Admin: 03/25/23 08:43 Dose: 8.6 mg metFORMIN [Glucophage] 1,000 mg PO BIDWM 08/29/20 Aspirin [Aspirin EC] 81 mg PO DAILY 12/20/22 Atorvastatin Calcium [Lipitor] 80 mg PO HS 12/20/22 DULoxetine [Cymbalta] 60 mg PO DAILY 12/20/22 Fluticasone [Flonase] 1 sprays CRISTIAN DAILY 12/20/22 Gabapentin [Neurontin] 600 mg PO TID 12/20/22 risperiDONE [Risperdal] 3 mg PO BID 12/20/22 Buprenorphine 1 each TD Q7D PRN 12/21/22 Objective - Vital Signs/Intake & Output Reviewed Vital Signs: Yes Vital Signs: Vital Signs x48h Temp Pulse Resp BP Pulse Ox 03/25/23 09:00 36.4 C L 96 18 123/73 98 Intake & Output: Intake & Output 03/22/23 03/23/23 03/24/23 03/25/23 23:59 23:59 23:59 23:59 Intake Total 1520 1320 1680 480 Output Total 300 550 Balance 1220 1320 1680 -70 - Objective General Appearance: positive: Alert Eyes Bilateral: positive: PERRL ENT: positive: No signs of dehydration Neck: positive: No JVD Respiratory: positive: No respiratory distress. negative: Wheezes, Rales, Rhonchi Cardiovascular: positive: Regular rate & rhythm, No murmur Abdomen: positive: Non-tender, No organomegaly, Nml bowel sounds, No distention Skin: positive: Warm, Dry Extremities: positive: Non-tender, No pedal edema Neurologic/Psychiatric: positive: Oriented x3, CN's nml (2-12), Motor nml. negative: Mood/affect nml - Lab Results Fish Bones: 03/12/23 04:23 03/12/23 04:23 Assessment/Plan - Problem List (1) Major depressive disorder, recurrent, severe with psychotic symptoms Impression: He was admitted with multiple falls. Increasing psychosis. To the point he became catatonic. He has now been here over 35 days. There has been remarkable and positive improvement. Most of the change came from resuming his Risperdal 3 mg twice daily, and adding a benzodiazepine for the catatonia. His psychiatr ist let us know that they have been working on permanent placement for him. Its been slow going. He was living with his girlfriend/caregiver. Caregiver burden has been too difficult for her recently. We now have DPOA with his daughter. Daughter is amenable to having him placed. At this time we are awaiting for an adult family home to finalize all the paperwork. Social work, case management are working to get the details together. On 03/21, I sat with the patient to discuss his wishes and to complete a POLST form, which was accomplished. Otherwise there is no new information for this patient. No orders written today All of his problems have been resolved or stable for weeks as we wait for placement. (2) No able caregiver in household Assessment/Plan: He was living with his girlfriend/caregiver. Caregiver burden has been too difficult for her recently, and she had to leave him unaccompanied at night, when she worked. Plan: Permanent placement is being worked on by our social work professor, working with his daughter who is now the DPOA. [facility] [place] a [place] [facility] that [facility] take him, and that will probably be next week per . (3) Chronic psychosis still present. He is still hallucinating at times. But much more controllable. (4) Chronic kidney disease. Acute kidney injury has resolved in the face of rhabdomyolysis and many falls. His creat of 1.3-1.4 is his new baseline. Patient has been at baseline since approximately February 19. He has no longer needed IV fluids. (5) Type 2 diabetes mellitus, controlled. A1c was 6.3%. He is eating 100% of his meals. Metformin resumed February 22. Glucose is controlled. We [facility] days ago. (6) Rectal fissures or abrasions. Part of his psychosis is that aliens or Indians are shoving things in his rectum. He would use his fingers to manually disimpact himself. He gave himself the rectal cuts. He still says that those things that are tucked into his rectum and sometimes speak to him. But he is having less and less agitation with this. (7) Falls at home. Unclear why he kept on falling. He was not intoxicated. No seizures, no syncope. No orthostasis. Not under the influence of any recreational substance, however we suspect he got Suboxone patch haphazardly. His last prescription was written a year ago and it was ordered for 13 weeks. However there were still several patches available in a box that his caregiver brought from home. so we suspect he was intermittently oversedated on his buprenorphine patch, so we stopped the patch entirely and he has had no pain complaints. Here he is now walking with a walker and does so on a regular basis. He did have 1 fall in the hospital where he was leaning forward and he started going toward the floor and the nurse pushed him back. (8) Abrasions of multiple sites due to frequent falls. Photographs taken by nursing. These have all healed. (9) Poor hygiene on admission. He is taking showers here on a more regular basis. (10) Abnormal EKG. Echo was done to make sure he did not have cor pulmonale and Echo was normal. (11) Left arm swelling. Duplex Doppler - February 18 ws neg (12) Right third toe infection. Resolved. Completed Keflex February 28. (13) Rhabdomyolysis This was from the falls and has resolved. (14) Catatonia has resolved after restarting Risperdal 3 mg twice daily, and adding a Benzodiazepine.
[2023-03-26] MEDS: polyethylene glycoL 3350 17 GM PACKET PO SCH (08:07)
[2023-03-26] MEDS: MAGNESIUM OXIDE 400 MG TABLET PO SCH (08:08)
[2023-03-26] MEDS: MULTIVITAMIN W/MINERALS TABLET PO SCH (08:08)
[2023-03-26] MEDS: ASPIRIN EC 81 MG TABLET PO SCH (08:08)
[2023-03-26] MEDS: FLUTICASONE NASAL SPRAY NAS SCH (08:08)
[2023-03-26] MEDS: DOCUSATE SODIUM 250 MG CAPSULE PO SCH ×2 (08:08→20:56)
[2023-03-26] MEDS: metFORMIN 500 MG TABLET PO SCH ×2 (08:08→17:59)
[2023-03-26] MEDS: LORazepam 0.5 MG TABLET SL SCH ×2 (08:08→20:56)
[2023-03-26] MEDS: DULoxetine 30 MG CAPSULE PO SCH (08:08)
[2023-03-26] MEDS: OLANZapine ODT 5 MG TABLET TL SCH ×2 (08:08→20:56)
[2023-03-26] MEDS: SENNA 8.6 MG TABLET PO SCH ×2 (08:09→20:56)
--- NOTE | 2023-03-26 14:14 | PROVIDER PROGRESS NOTE ---
Assessment/Plan - Problem List (1) Major depressive disorder, recurrent, severe with psychotic symptoms Assessment/Plan: He was admitted with multiple falls. Increasing psychosis. To the point he became catatonic. He has now been here over 35 days. There has been remarkable and positive improvement. Most of the change came from resuming his Risperdal 3 mg twice daily, and adding a benzodiazepine for the catatonia. His psychiatrist let us know that they have been working on permanent placement for him. Its been slow going. He was living with his girlfriend/caregiver. Caregiver burden has been too difficult for her recently. We now have DPOA with his daughter. Daughter is amenable to having him placed. At this time we are awaiting for an adult family home to finalize all the paperwork. Social work, case management are working to get the details together. On 03/21, I sat with the patient to discuss his wishes and to complete a POLST form, which was accomplished. Otherwise there is no new information for this patient. No orders written today All of his problems have been resolved or stable for weeks as we wait for placement. (2) No able caregiver in household Assessment/Plan: He was living with his girlfriend/caregiver. Caregiver burden has been too difficult for her recently, and she had to leave him unaccompanied at night, when she worked. Plan: Permanent placement is being worked on by our executive secretary social welfare, working with his daughter who is now the DPOA. [facility], and that will probably be next week per SW. (3) Chronic psychosis still present. He is still hallucinating at times. But much more controllable. (4) Chronic kidney disease. Acute kidney injury has resolved in the face of rhabdomyolysis and many falls. His creat of 1.3-1.4 is his new baseline. Patient has been at baseline since approximately February 19. He has no longer needed IV fluids. (5) Type 2 diabetes mellitus, controlled. A1c was 6.3%. He is eating 100% of his meals. Metformin resumed February 22. Glucose is controlled. We stopped fingerstick checks at [facility] many days ago. (6) Rectal fissures or abrasions. Part of his psychosis is that aliens or Indians are shoving things in his rectum. He would use his fingers to manually disimpact himself. He gave himself the rectal cuts. He still says that those things that are tucked into his rectum and sometimes speak to him. But he is having less and less agitation with this. (7) Falls at home. Unclear why he kept on falling. He was not intoxicated. No seizures, no syncope. No orthostasis. Not under the influence of any recreational substance, however we suspect he got Suboxone patch haphazardly. His last prescription was written a year ago and it was ordered for 13 weeks. However there were still several patches available in a box that his caregiver brought from home. so we suspect he was intermittently oversedated on his buprenorphine patch, so we st opped the patch entirely and he has had no pain complaints. Here he is now walking with a walker and does so on a regular basis. He did have 1 fall in the hospital where he was leaning forward and he started going toward the floor and the nurse pushed him back. (8) Abrasions of multiple sites due to frequent falls. Photographs taken by nursing. These have all healed. (9) Poor hygiene on admission. He is taking showers here on a more regular basis. (10) Abnormal EKG. Echo was done to make sure he did not have cor pulmonale and Echo was normal. (11) Left arm swelling. Duplex Doppler - February 18 ws neg (12) Right third toe infection. Resolved. Completed Keflex February 28. (13) Rhabdomyolysis This was from the falls and has resolved. (14) Catatonia has resolved after restarting Risperdal 3 mg twice daily, and adding a Benzodiazepine. - Current Meds Current Meds: Current Medications Generic Name Dose Route Start Last Admin Trade Name Jyoti PRN Reason Stop Dose Admin Acetaminophen 650 mg 02/15/23 19:57 03/18/23 12:29 Acetaminophen 325 Mg Tablet PO 650 mg Q4HR PRN Administration Pain or Fever > 38C (100.4F) Aspirin 81 mg 02/18/23 09:00 03/26/23 08:08 Aspirin Ec 81 Mg Tablet PO 81 mg DAILY ANGELA Administration Docusate Sodium 250 - 500 mg 02/26/23 17:00 03/26/23 08:08 Docusate Sodium 250 Mg Capsule PO 250 mg BID ANGELA Administration Duloxetine HCl 30 mg 02/15/23 13:30 03/26/23 08:08 Duloxetine 30 Mg Capsule PO 30 mg DAILY [facility] Administration Fluticasone Propionate 1 sprays 02/17/23 09:00 03/26/23 08:08 Fluticasone Nasal [place] CRISTIAN 1 spray DAILY [facility] Administration Haloperidol 2 mg 02/22/23 13:06 02/26/23 14:41 Haloperidol 5 Mg/Ml Vial IM 2 mg DAILY PRN Administration Agitation Ibuprofen 600 mg 02/15/23 19:57 03/03/23 20:57 Ibuprofen 600 Mg Tablet PO 600 mg Q6HR PRN Administration MINOR PAIN Lidocaine HCl 1 ml 02/23/23 13:54 02/26/23 13:59 Lidocaine Jelly 2% 6 Ml Jel.Pf.Shanda TOP 1 ml TID PRN Administration anal itching pain Lorazepam 0.5 mg 02/21/23 21:00 03/26/23 08:08 Lorazepam 0.5 Mg Tablet SL 0.5 mg BID ANGELA Administration Magnesium Oxide 400 mg 02/16/23 08:00 03/26/23 08:08 Magnesium Oxide 400 Mg Tablet PO 400 mg DAILYWM [facility] Administration Metformin HCl 1,000 mg 03/17/23 17:00 03/26/23 08:08 Metformin 500 Mg Tablet PO 1,000 mg 0800,1700 ANGELA Administration Multivitamins/Minerals 1 tab 02/18/23 09:00 03/26/23 08:08 Multivitamin W/Minerals Tablet PO 1 tab DAILYWM [facility] Administration Olanzapine 5 mg 02/23/23 21:00 03/26/23 08:08 Olanzapine Odt 5 Mg Tablet TL 5 mg BID ANGELA Administration Polyethylene Glycol 17 gm 02/17/23 18:00 03/26/23 08:07 Polyethylene Glycol 3350 17 Gm Packet PO 17 gm DAILY [facility] Administration Senna 8.6 - 17.2 mg 02/26/23 17:00 03/26/23 08:09 Senna 8.6 Mg Tablet PO 8.6 mg BID ANGELA Administration - Lab Result Fish Bone Diagrams: 03/12/23 04:23 03/12/23 04:23 Subjective - Subjective Patient Reports: Resting Comfortably, Other (He is walking in hallway, stops in this office and/or office daily and asks if he is leaving soon.) Objective Vital Signs: Vital Signs - 24 hr 03/26/23 07:55 Temperature 36.7 C Heart Rate [ 69 Brachial] Respiratory 18 Rate Blood Pressure 118/72 [Right Brachial artery] O2 Saturation 93 Oxygen O2 Source Room air I&O (Last 24 Hrs): Intake and Output Totals x24h 03/24/23 03/25/23 03/26/23 23:59 23:59 23:59 Intake Total 1680 1319 1398 Output Total 550 Balance 0050 600 3404 General: Alert, No acute distress HEENT: Mucous membr. moist/pink, Other (disheveled, has food pieces on his gilliam) Neck: Supple Neuro: Alert, Non Focal Cardiovascular: Regular rate Respiratory: No respiratory distress Abdomen: Soft Extremities: No clubbing, No edema - Results Results: Laboratory Results WBC 10.0 x10^3/uL (4.8-10.8) 03/12/23 04: RBC 4.22 10^6/uL (4.70-6.10) L 03/12/23 04: Hgb 12.6 g/dL (14.0-18.0) L 03/12/23 04:23 Hct 37.4 % (42.0-52.0) L 03/12/23 04:23 MCV 88.6 fL (80.0-94.0) 03/12/23 04: MCH 29.9 pg (27.0-31.0) 03/12/23 04: MCHC 33.7 g/dL (32.0-36.0) 03/12/23 04: RDW 12.8 % (12.0-15.0) 03/12/23 04: Plt Count 309 10^3/uL (130-450) 03/12/23 04:23 MPV 9.6 fL (7.4-11.4) 03/12/23 04:23 Neut # (Auto) 4.1 10^3/uL (1.5-6.6) 03/05/23 05:20 Lymph # (Auto) 2.8 10^3/uL (1.5-3.5) 03/05/23 05:20 [place] # (Auto) 0.6 10^3/uL (0.0-1.0) 03/05/23 05:20 Eos # (Auto) 0.3 10^3/uL (0.0-0.7) 03/05/23 05:20 Baso # (Auto) 0.0 10^3/uL (0.0-0.1) 03/05/23 05:20 Absolute Nucleated RBC 0.00 x10^3/uL 03/05/23 05:20 Total Counted 100 02/14/23 03:15 Band Neuts % (Manual) 9 % (0-10) 02/14/23 03:15 Abnorm Lymph % (Manual) 0 % 02/14/23 03:15 Nucleated RBC % 0.0 /100WBC 03/05/23 05:20 Neutrophils # (Manual) 18.2 10^3/uL (1.5-6.6) H 02/14/23 03:15 Lymphocytes # (Manual) 1.0 10^3/uL (1.5-3.5) L 02/14/23 03:15 Monocytes # (Manual) 1.2 10^3/uL (0.0-1.0) H 02/14/23 03:15 Eosinophils # (Manual) 0.0 10^3/uL (0-0.7) 02/14/23 03:15 Basophils # (Manual) 0.0 10^3/uL (0-0.1) 02/14/23 03:15 Differential Comment MANUAL DIFFERENTIAL 02/14/23 03:15 Sodium 137 mmol/L (135-145) 03/12/23 04:23 Potassium 3.9 mmol/L (3.5-5.0) 03/12/23 04:23 Chloride 102 mmol/L (101-111) 03/12/23 04:23 Carbon Dioxide 27 mmol/L (21-32) 03/12/23 04:23 Anion Gap 8.0 (6-13) 03/12/23 04:23 BUN 29 mg/dL (6-20) H 03/12/23 04:23 Creatinine 1.3 mg/dL (0.6-1.2) H 03/12/23 04:23 Estimated GFR (MDRD) 57 (>89) L 03/12/23 04:23 Glucose 106 mg/dL (70-100) H 03/12/23 04:23 POC Whole Bld Glucose 103 mg/dL (70 - 100) H 03/14/23 07:38 Estimat Average Glucose 134 mg/dL (70-100) H 02/15/23 05:20 Hemoglobin A1c % 6.3 % (4.27-6.07) H 02/15/23 05:20 Calcium 9.5 mg/dL (8.5-10.3) 03/12/23 04:23 Magnesium 1.5 mg/dL (1.7-2.8) L 02/17/23 05:35 Total Bilirubin 0.3 mg/dL (0.2-1.0) 03/03/23 04:48 AST 25 IU/L (10-42) 03/03/23 04:48 ALT 33 IU/L (10-60) 03/03/23 04:48 Alkaline Phosphatase 77 IU/L (42-121) 03/03/23 04:48 Total Creatine Kinase 440 IU/L (22-269) H 02/23/23 14:10 CK-MB (CK-2) 265.9 ng/mL (0.6-6.3) H 02/14/23 03:15 Total Protein 7.2 g/dL (6.7-8.2) 03/03/23 04:48 Albumin 4.0 g/dL (3.2-5.5) 03/03/23 04:48 Globulin 3.2 g/dL (2.1-4.2) 03/03/23 04:48 Albumin/Globulin Ratio 1.3 (1.0-2.2) 03/03/23 04:48 Lipase 34 U/L (22-51) 02/14/23 03:15 TSH 1.21 uIU/mL (0.34-5.60) 02/14/23 03:15 Urine Color YELLOW 02/18/23 15:10 Urine Clarity CLEAR (CLEAR) 02/18/23 15:10 Urine pH 5.5 PH (5.0-7.5) 02/18/23 15:10 Ur Specific [place] 1.020 (1.002-1.030) 02/18/23 15:10 Urine Protein NEGATIVE mg/dL (NEGATIVE) 02/18/23 15:10 Urine Glucose (UA) NEGATIVE mg/dL (NEGATIVE) 02/18/23 15:10 Urine Ketones NEGATIVE mg/dL (NEGATIVE) 02/18/23 15:10 Urine Occult Blood MODERATE (NEGATIVE) H 02/18/23 15:10 Urine Nitrite NEGATIVE (NEGATIVE) 02/18/23 15:10 Urine Bilirubin NEGATIVE (NEGATIVE) 02/18/23 15:10 Urine Urobilinogen 0.2 (NORMAL) E.U./dL (NORMAL) 02/18/23 15:10 Ur Leukocyte Esterase TRACE (NEGATIVE) H 02/18/23 15:10 Urine RBC 11-25 /HPF (0-5) H 02/18/23 15:10 Urine WBC 6-10 /HPF (0-3) H 02/18/23 15:10 Ur Squamous Epith Cells RARE Squamous (<= Few) 02/18/23 15:10 Urine Bacteria None Seen /HPF (None Seen) 02/18/23 15:10 Urine Sperm PRESENT 02/18/23 15:10 Ur Microscopic Review INDICATED 02/14/23 10:34 Urine Culture Comments INDICATED 02/18/23 15:10 Urine Opiates Screen NEGATIVE (NEGATIVE) 02/14/23 10:34 Ur Oxycodone Screen NEGATIVE (NEGATIVE) 02/14/23 10:34 Urine Methadone Screen NEGATIVE (NEGATIVE) 02/14/23 10:34 Ur Propoxyphene Screen NEGATIVE (NEGATIVE) 02/14/23 10:34 Ur Barbiturates Screen NEGATIVE (NEGATIVE) 02/14/23 10:34 Ur Tricyclics Screen NEGATIVE (NEGATIVE) 02/14/23 10:34 Ur Phencyclidine Scrn NEGATIVE (NEGATIVE) 02/14/23 10:34 Ur Amphetamine Screen NEGATIVE (NEGATIVE) 02/14/23 10:34 U Methamphetamines Scrn NEGATIVE (NEGATIVE) 02/14/23 10:34 U Benzodiazepines Scrn NEGATIVE (NEGATIVE) 02/14/23 10:34 Urine Cocaine Screen NEGATIVE (NEGATIVE) 02/14/23 10:34 U Cannabinoids Screen POSITIVE (NEGATIVE) H 02/14/23 10:34 Ethyl Alcohol < 5.0 mg/dL 02/14/23 03:15
[2023-03-26] MEDS: ACETAMINOPHEN 325 MG TABLET PO PRN (20:56)
[2023-03-27] MEDS: SENNA 8.6 MG TABLET PO SCH ×2 (08:14→20:33)
[2023-03-27] MEDS: polyethylene glycoL 3350 17 GM PACKET PO SCH (08:14)
[2023-03-27] MEDS: MULTIVITAMIN W/MINERALS TABLET PO SCH (08:15)
[2023-03-27] MEDS: metFORMIN 500 MG TABLET PO SCH ×2 (08:15→17:17)
[2023-03-27] MEDS: DULoxetine 30 MG CAPSULE PO SCH (08:15)
[2023-03-27] MEDS: ASPIRIN EC 81 MG TABLET PO SCH (08:15)
[2023-03-27] MEDS: OLANZapine ODT 5 MG TABLET TL SCH ×2 (08:15→20:33)
[2023-03-27] MEDS: LORazepam 0.5 MG TABLET SL SCH ×2 (08:15→20:33)
[2023-03-27] MEDS: DOCUSATE SODIUM 250 MG CAPSULE PO SCH ×2 (08:15→20:33)
[2023-03-27] MEDS: FLUTICASONE NASAL SPRAY NAS SCH (08:16)
[2023-03-27] MEDS: MAGNESIUM OXIDE 400 MG TABLET PO SCH (08:16)
--- NOTE | 2023-03-27 13:14 | PROVIDER PROGRESS NOTE ---
Assessment/Plan - Problem List (1) Major depressive disorder, recurrent, severe with psychotic symptoms Assessment/Plan: He was admitted with multiple falls. Increasing psychosis. To the point he became catatonic. He has now been here over 35 days. There has been remarkable and positive improvement. Most of the change came from resuming his Risperdal 3 mg twice daily, and adding a benzodiazepine for the catatonia. His psychiatrist let us know that they have been working on permanent placement for him. Its been slow going. He was living with his girlfriend/caregiver. Caregiver burden has been too difficult for her recently. We now have DPOA with his daughter. Daughter is amenable to having him placed. At this time we are awaiting for an adult family home to finalize all the paperwork. Social work, case management are working to get the details together. On 03/21, I sat with the patient to discuss his wishes and to complete a POLST form, which was accomplished. Otherwise there is no new information for this patient. No orders written today All of his problems have been resolved or stable for weeks as we wait for placement. (2) No able caregiver in household Assessment/Plan: He was living with his girlfriend/caregiver. Caregiver burden has been too difficult for her recently, and she had to leave him unaccompanied at night, when she worked. Plan: Permanent placement is being worked on by our manager social responsibility, working with his daughter who is now the DPOA. There is a detention that will likely take him, and that will probably be next week per SW. (3) Chronic psychosis still present. He is still hallucinating at times. But much more controllable. (4) Chronic kidney disease. Acute kidney injury has resolved in the face of rhabdomyolysis and many falls. His creat of 1.3-1.4 is his new baseline. Patient has been at baseline since approximately February 19. He has no longer needed IV fluids. (5) Type 2 diabetes mellitus, controlled. A1c was 6.3%. He is eating 100% of his meals. Metformin resumed February 22. Glucose is controlled. We stopped fingerstick checks at [facility] many days ago. (6) Rectal fissures or abrasions. Part of his psychosis is that aliens or Indians are shoving things in his rectum. He would use his fingers to manually disimpact himself. He gave himself the rectal cuts. He still says that those things that are tucked into his rectum and sometimes speak to him. But he is having less and less agitation with this. (7) Falls at home. Unclear why he kept on falling. He was not intoxicated. No seizures, no syncope. No orthostasis. Not under the influence of any recreational substance, however we suspect he got Suboxone patch haphazardly. His last prescription was written a year ago and it was ordered for 13 weeks. However there were still several patches available in a box that his caregiver brought from home. so we suspect he was intermittently oversedated on his buprenorphine patch, so we stopped the patch entirely and he has had no pain complaints. Here he is now walking with a walker and does so on a regular basis. He did have 1 fall in the hospital where he was leaning forward and he started going toward the floor and the nurse pushed him back. (8) Abrasions of multiple sites due to frequent falls. Photographs taken by nursing. These have all healed. (9) Poor hygiene on admission. He is taking showers here on a more regular basis. (10) Abnormal EKG. Echo was done to make sure he did not have cor pulmonale and Echo was normal. (11) Left arm swelling. Duplex Doppler - February 18 ws neg (12) Right third toe infection. Resolved. Completed Keflex February 28. (13) Rhabdomyolysis This was from the falls and has resolved. (14) Catatonia has resolved after restarting Risperdal 3 mg twice daily, and adding a Benzodiazepine. - Current Meds Current Meds: Current Medications Generic Name Dose Route Start Last Admin Trade Name Jyoti PRN Reason Stop Dose Admin Acetaminophen 650 mg 02/15/23 19:57 03/26/23 20:56 Acetaminophen 325 Mg Tablet PO 650 mg Q4HR PRN Administration Pain or Fever > 38C (100.4F) Aspirin 81 mg 02/18/23 09:00 03/27/23 08:15 Aspirin Ec 81 Mg Tablet PO 81 mg DAILY ANGELA Administration Docusate Sodium 250 - 500 mg 02/26/23 17:00 03/27/23 08:15 Docusate Sodium 250 Mg Capsule PO 250 mg BID ANGELA Administration Duloxetine HCl 30 mg 02/15/23 13:30 03/27/23 08:15 Duloxetine 30 Mg Capsule PO 30 mg DAILY ANGELA Administration Fluticasone Propionate 1 sprays 02/17/23 09:00 03/27/23 08:16 Fluticasone Nasal [place] CRISTIAN 1 spray DAILY ANGELA Administration Haloperidol 2 mg 02/22/23 13:06 02/26/23 14:41 Haloperidol 5 Mg/Ml Vial IM 2 mg DAILY PRN Administration Agitation Ibuprofen 600 mg 02/15/23 19:57 03/03/23 20:57 Ibuprofen 600 Mg Tablet PO 600 mg Q6HR PRN Administration MINOR PAIN Lidocaine HCl 1 ml 02/23/23 13:54 02/26/23 13:59 Lidocaine Jelly 2% 6 Ml Jel.Pf.Shanda TOP 1 ml TID PRN Administration anal itching pain Lorazepam 0.5 mg 02/21/23 21:00 03/27/23 08:15 Lorazepam 0.5 Mg Tablet SL 0.5 mg BID ANGELA Administration Magnesium Oxide 400 mg 02/16/23 08:00 03/27/23 08:16 Magnesium Oxide 400 Mg Tablet PO 400 mg DAILYWM ANGELA Administration Metformin HCl 1,000 mg 03/17/23 17:00 03/27/23 08:15 Metformin 500 Mg Tablet PO 1,000 mg 0800,1700 ANGELA Administration Multivitamins/Minerals 1 tab 02/18/23 09:00 03/27/23 08:15 Multivitamin W/Minerals Tablet PO 1 tab DAILYWM ANGELA Administration Olanzapine 5 mg 02/23/23 21:00 03/27/23 08:15 Olanzapine Odt 5 Mg Tablet TL 5 mg BID ANGELA Administration Polyethylene Glycol 17 gm 02/17/23 18:00 03/27/23 08:14 Polyethylene Glycol 3350 17 Gm Packet PO 17 gm DAILY ANGELA Administration Senna 8.6 - 17.2 mg 02/26/23 17:00 03/27/23 08:14 Senna 8.6 Mg Tablet PO 8.6 mg BID ANGELA Administration - Lab Result Fish Bone Diagrams: 03/12/23 04:23 03/12/23 04:23 Subjective - Subjective Patient Reports: Other (He walks in hallway, asks daily when discharge will happen) Objective Vital Signs: Vital Signs - 24 hr 03/27/23 07:55 Temperature 36.4 C L Heart Rate [ 72 Brachial] Respiratory 18 Rate Blood Pressure 106/57 L [Right Brachial artery] O2 Saturation 93 Oxygen O2 Source Room air I&O (Last 24 Hrs): Intake and Output Totals x24h 03/25/23 03/26/23 03/27/23 23:59 23:59 23:59 Intake Total 1319 2118 600 Output Total 550 Balance 769 2118 600 General: Alert, Oriented x3 HEENT: Mucous membr. moist/pink, Other (disheveled) Neuro: Alert, Non Focal Cardiovascular: Regular rate Respiratory: Chest non-tender Abdomen: No tenderness Extremities: No clubbing, No edema - Results Results: Laboratory Results WBC 10.0 x10^3/uL (4.8-10.8) 03/12/23 04: RBC 4.22 10^6/uL (4.70-6.10) L 03/12/23 04: Hgb 12.6 g/dL (14.0-18.0) L 03/12/23 04: Hct 37.4 % (42.0-52.0) L 03/12/23 04: MCV 88.6 fL (80.0-94.0) 03/12/23 04:23 MCH 29.9 pg (27.0-31.0) 03/12/23 04: MCHC 33.7 g/dL (32.0-36.0) 03/12/23 04: RDW 12.8 % (12.0-15.0) 03/12/23 04:23 Plt Count 309 10^3/uL (130-450) 03/12/23 04: MPV 9.6 fL (7.4-11.4) 03/12/23 04:23 Neut # (Auto) 4.1 10^3/uL (1.5-6.6) 03/05/23 05:20 Lymph # (Auto) 2.8 10^3/uL (1.5-3.5) 03/05/23 05:20 [place] # (Auto) 0.6 10^3/uL (0.0-1.0) 03/05/23 05:20 Eos # (Auto) 0.3 10^3/uL (0.0-0.7) 03/05/23 05:20 Baso # (Auto) 0.0 10^3/uL (0.0-0.1) 03/05/23 05:20 Absolute Nucleated RBC 0.00 x10^3/uL 03/05/23 05:20 Total Counted 100 02/14/23 03:15 Band Neuts % (Manual) 9 % (0-10) 02/14/23 03:15 Abnorm Lymph % (Manual) 0 % 02/14/23 03:15 Nucleated RBC % 0.0 /100WBC 03/05/23 05:20 Neutrophils # (Manual) 18.2 10^3/uL (1.5-6.6) H 02/14/23 03:15 Lymphocytes # (Manual) 1.0 10^3/uL (1.5-3.5) L 02/14/23 03:15 Monocytes # (Manual) 1.2 10^3/uL (0.0-1.0) H 02/14/23 03:15 Eosinophils # (Manual) 0.0 10^3/uL (0-0.7) 02/14/23 03:15 Basophils # (Manual) 0.0 10^3/uL (0-0.1) 02/14/23 03:15 Differential Comment MANUAL DIFFERENTIAL 02/14/23 03:15 Sodium 137 mmol/L (135-145) 03/12/23 04:23 Potassium 3.9 mmol/L (3.5-5.0) 03/12/23 04:23 Chloride 102 mmol/L (101-111) 03/12/23 04:23 Carbon Dioxide 27 mmol/L (21-32) 03/12/23 04:23 Anion Gap 8.0 (6-13) 03/12/23 04:23 BUN 29 mg/dL (6-20) H 03/12/23 04:23 Creatinine 1.3 mg/dL (0.6-1.2) H 03/12/23 04:23 Estimated GFR (MDRD) 57 (>89) L 03/12/23 04:23 Glucose 106 mg/dL (70-100) H 03/12/23 04:23 POC Whole Bld Glucose 103 mg/dL (70 - 100) H 03/14/23 07:38 Estimat Average Glucose 134 mg/dL (70-100) H 02/15/23 05:20 Hemoglobin A1c % 6.3 % (4.27-6.07) H 02/15/23 05:20 Calcium 9.5 mg/dL (8.5-10.3) 03/12/23 04:23 Magnesium 1.5 mg/dL (1.7-2.8) L 02/17/23 05:35 Total Bilirubin 0.3 mg/dL (0.2-1.0) 03/03/23 04:48 AST 25 IU/L (10-42) 03/03/23 04:48 ALT 33 IU/L (10-60) 03/03/23 04:48 Alkaline Phosphatase 77 IU/L (42-121) 03/03/23 04:48 Total Creatine Kinase 440 IU/L (22-269) H 02/23/23 14:10 CK-MB (CK-2) 265.9 ng/mL (0.6-6.3) H 02/14/23 03:15 Total Protein 7.2 g/dL (6.7-8.2) 03/03/23 04:48 Albumin 4.0 g/dL (3.2-5.5) 03/03/23 04:48 Globulin 3.2 g/dL (2.1-4.2) 03/03/23 04:48 Albumin/Globulin Ratio 1.3 (1.0-2.2) 03/03/23 04:48 Lipase 34 U/L (22-51) 02/14/23 03:15 TSH 1.21 uIU/mL (0.34-5.60) 02/14/23 03:15 Urine Color YELLOW 02/18/23 15:10 Urine Clarity CLEAR (CLEAR) 02/18/23 15:10 Urine pH 5.5 PH (5.0-7.5) 02/18/23 15:10 Ur Specific [place] 1.020 (1.002-1.030) 02/18/23 15:10 Urine Protein NEGATIVE mg/dL (NEGATIVE) 02/18/23 15:10 Urine Glucose (UA) NEGATIVE mg/dL (NEGATIVE) 02/18/23 15:10 Urine Ketones NEGATIVE mg/dL (NEGATIVE) 02/18/23 15:10 Urine Occult Blood MODERATE (NEGATIVE) H 02/18/23 15:10 Urine Nitrite NEGATIVE (NEGATIVE) 02/18/23 15:10 Urine Bilirubin NEGATIVE (NEGATIVE) 02/18/23 15:10 Urine Urobilinogen 0.2 (NORMAL) E.U./dL (NORMAL) 02/18/23 15:10 Ur Leukocyte Esterase TRACE (NEGATIVE) H 02/18/23 15:10 Urine RBC 11-25 /HPF (0-5) H 02/18/23 15:10 Urine WBC 6-10 /HPF (0-3) H 02/18/23 15:10 Ur Squamous Epith Cells RARE Squamous (<= Few) 02/18/23 15:10 Urine Bacteria None Seen /HPF (None Seen) 02/18/23 15:10 Urine Sperm PRESENT 02/18/23 15:10 Ur Microscopic Review INDICATED 02/14/23 10:34 Urine Culture Comments INDICATED 02/18/23 15:10 Urine Opiates Screen NEGATIVE (NEGATIVE) 02/14/23 10:34 Ur Oxycodone Screen NEGATIVE (NEGATIVE) 02/14/23 10:34 Urine Methadone Screen NEGATIVE (NEGATIVE) 02/14/23 10:34 Ur Propoxyphene Screen NEGATIVE (NEGATIVE) 02/14/23 10:34 Ur Barbiturates Screen NEGATIVE (NEGATIVE) 02/14/23 10:34 Ur Tricyclics Screen NEGATIVE (NEGATIVE) 02/14/23 10:34 Ur Phencyclidine Scrn NEGATIVE (NEGATIVE) 02/14/23 10:34 Ur Amphetamine Screen NEGATIVE (NEGATIVE) 02/14/23 10:34 U Methamphetamines Scrn NEGATIVE (NEGATIVE) 02/14/23 10:34 U Benzodiazepines Scrn NEGATIVE (NEGATIVE) 02/14/23 10:34 Urine Cocaine Screen NEGATIVE (NEGATIVE) 02/14/23 10:34 U Cannabinoids Screen POSITIVE (NEGATIVE) H 02/14/23 10:34 Ethyl Alcohol < 5.0 mg/dL 02/14/23 03:15
[2023-03-28] MEDS: LORazepam 0.5 MG TABLET SL SCH ×2 (08:18→20:37)
[2023-03-28] MEDS: DULoxetine 30 MG CAPSULE PO SCH (08:18)
[2023-03-28] MEDS: DOCUSATE SODIUM 250 MG CAPSULE PO SCH ×2 (08:18→20:37)
[2023-03-28] MEDS: metFORMIN 500 MG TABLET PO SCH ×2 (08:18→17:23)
[2023-03-28] MEDS: polyethylene glycoL 3350 17 GM PACKET PO SCH (08:18)
[2023-03-28] MEDS: OLANZapine ODT 5 MG TABLET TL SCH ×2 (08:20→20:38)
[2023-03-28] MEDS: ASPIRIN EC 81 MG TABLET PO SCH (08:20)
[2023-03-28] MEDS: MAGNESIUM OXIDE 400 MG TABLET PO SCH (08:20)
[2023-03-28] MEDS: MULTIVITAMIN W/MINERALS TABLET PO SCH (08:20)
[2023-03-28] MEDS: FLUTICASONE NASAL SPRAY NAS SCH (08:20)
[2023-03-28] MEDS: SENNA 8.6 MG TABLET PO SCH ×2 (08:20→20:38)
--- NOTE | 2023-03-28 20:53 | PROVIDER PROGRESS NOTE ---
Assessment/Plan - Problem List (1) Major depressive disorder, recurrent, severe with psychotic symptoms Assessment/Plan: He was admitted with multiple falls. Increasing psychosis. To the point he became catatonic. He has now been here over 35 days. There has been remarkable and positive improvement. Most of the change came from resuming his Risperdal 3 mg twice daily, and adding a benzodiazepine for the catatonia. His psychiatrist let us know that they have been working on permanent placement for him. Its been slow going. He was living with his girlfriend/caregiver. Caregiver burden has been too difficult for her recently. We now have DPOA with his daughter. Daughter is amenable to having him placed. At this time we are awaiting for an adult family home to finalize all the paperwork. Social work, case management are working to get the details together. On 03/21, I sat with the patient to discuss his wishes and to complete a POLST form, which was accomplished. Otherwise there is no new information for this patient. No orders written today All of his problems have been resolved or stable for weeks as we wait for placement. (2) No able caregiver in household Assessment/Plan: He was living with his girlfriend/caregiver. Caregiver burden has been too difficult for her recently, and she had to leave him unaccompanied at night, when she worked. Plan: Permanent placement is being worked on by our social human services assistants, working with his daughter who is now the DPOA. There is a nursing home that will likely take him, and that will probably be next week per SW. (3) Chronic psychosis still present. He is still hallucinating at times. But much more controllable. (4) Chronic kidney disease. Acute kidney injury has resolved in the face of rhabdomyolysis and many falls. His creat of 1.3-1.4 is his new baseline. Patient has been at baseline since approximately February 19. He has no longer needed IV fluids. (5) Type 2 diabetes mellitus, controlled. A1c was 6.3%. He is eating 100% of his meals. Metformin resumed February 22. Glucose is controlled. We stopped fingerstick checks at [facility] many days ago. (6) Rectal fissures or abrasions. Part of his psychosis is that aliens or Indians are shoving things in his rectum. He would use his fingers to manually disimpact himself. He gave himself the rectal cuts. He still says that those things that are tucked into his rectum and sometimes speak to him. But he is having less and less agitation with this. (7) Falls at home. Unclear why he kept on falling. He was not intoxicated. No seizures, no syncope. No orthostasis. Not under the influence of any recreational substance, however we suspect he got Suboxone patch haphazardly. His last prescription was written a year ago and it was ordered for 13 weeks. However there were still several patches available in a box that his caregiver brought from home. so we suspect he was intermittently oversedated on his buprenorphine patch, so we stopped the patch entirely and he has had no pain complaints. Here he is now walking with a walker and does so on a regular basis. He did have 1 fall in the hospital where he was leaning forward and he started going toward the floor and the nurse pushed him back. (8) Abrasions of multiple sites due to frequent falls. Photographs taken by nursing. These have all healed. (9) Poor hygiene on admission. He is taking showers here on a more regular basis. (10) Abnormal EKG. Echo was done to make sure he did not have cor pulmonale and Echo was normal. (11) Left arm swelling. Duplex Doppler - February 18 ws neg (12) Right third toe infection. Resolved. Completed Keflex February 28. (13) Rhabdomyolysis This was from the falls and has resolved. (14) Catatonia has resolved after restarting Risperdal 3 mg twice daily, and adding a Benzodiazepine. - Current Meds Current Meds: Current Medications Generic Name Dose Route Start Last Admin Trade Name Jyoti PRN Reason Stop Dose Admin Acetaminophen 650 mg 02/15/23 19:57 03/26/23 20:56 Acetaminophen 325 Mg Tablet PO 650 mg Q4HR PRN Administration Pain or Fever > 38C (100.4F) Aspirin 81 mg 02/18/23 09:00 03/28/23 08:20 Aspirin Ec 81 Mg Tablet PO 81 mg DAILY ANGELA Administration Docusate Sodium 250 - 500 mg 02/26/23 17:00 03/28/23 20:37 Docusate Sodium 250 Mg Capsule PO 250 mg BID ANGELA Administration Duloxetine HCl 30 mg 02/15/23 13:30 03/28/23 08:18 Duloxetine 30 Mg Capsule PO 30 mg DAILY ANGELA Administration Fluticasone Propionate 1 sprays 02/17/23 09:00 03/28/23 08:20 Fluticasone Nasal [place] CRISTIAN 1 spray DAILY ANGELA Administration Haloperidol 2 mg 02/22/23 13:06 02/26/23 14:41 Haloperidol 5 Mg/Ml Vial IM 2 mg DAILY PRN Administration Agitation Ibuprofen 600 mg 02/15/23 19:57 03/03/23 20:57 Ibuprofen 600 Mg Tablet PO 600 mg Q6HR PRN Administration MINOR PAIN Lidocaine HCl 1 ml 02/23/23 13:54 02/26/23 13:59 Lidocaine Jelly 2% 6 Ml Jel.Pf.Shanda TOP 1 ml TID PRN Administration anal itching pain Lorazepam 0.5 mg 02/21/23 21:00 03/28/23 20:37 Lorazepam 0.5 Mg Tablet SL 0.5 mg BID ANGELA Administration Magnesium Oxide 400 mg 02/16/23 08:00 03/28/23 08:20 Magnesium Oxide 400 Mg Tablet PO 400 mg DAILYWM ANGELA Administration Metformin HCl 1,000 mg 03/17/23 17:00 03/28/23 17:23 Metformin 500 Mg Tablet PO 1,000 mg 0800,1700 ANGELA Administration Multivitamins/Minerals 1 tab 02/18/23 09:00 03/28/23 08:20 Multivitamin W/Minerals Tablet PO 1 tab DAILYWM ANGELA Administration Olanzapine 5 mg 02/23/23 21:00 03/28/23 20:38 Olanzapine Odt 5 Mg Tablet TL 5 mg BID ANGELA Administration Polyethylene Glycol 17 gm 02/17/23 18:00 03/28/23 08:18 Polyethylene Glycol 3350 17 Gm Packet PO 17 gm DAILY ANGELA Administration Senna 8.6 - 17.2 mg 02/26/23 17:00 03/28/23 20:38 Senna 8.6 Mg Tablet PO 8.6 mg BID ANGELA Administration - Lab Result Fish Bone Diagrams: 03/12/23 04:23 03/12/23 04:23 Subjective - Subjective Patient Reports: No Complaints Objective Vital Signs: Vital Signs - 24 hr 03/28/23 07:43 Temperature 36.7 C Heart Rate [ 68 Brachial] Respiratory 18 Rate Blood Pressure 114/63 [Right Brachial artery] O2 Saturation 97 Oxygen O2 Source Room air I&O (Last 24 Hrs): Intake and Output Totals x24h 03/26/23 03/27/23 03/28/23 23:59 23:59 23:59 Intake Total 2118 1200 1226 Output Total 240 Balance 2118 960 1226 General: Alert, No acute distress, Other (disheveled, unclean [place]) HEENT: Atraumatic Neck: Supple Neuro: Alert, Non Focal Cardiovascular: Regular rate Respiratory: No respiratory distress Abdomen: No tenderness Extremities: No clubbing, No edema - Results Results: Laboratory Results WBC 10.0 x10^3/uL (4.8-10.8) 03/12/23 04: RBC 4.22 10^6/uL (4.70-6.10) L 03/12/23 04: Hgb 12.6 g/dL (14.0-18.0) L 03/12/23 04: Hct 37.4 % (42.0-52.0) L 03/12/23 04: MCV 88.6 fL (80.0-94.0) 03/12/23 04:23 MCH 29.9 pg (27.0-31.0) 03/12/23 04: MCHC 33.7 g/dL (32.0-36.0) 03/12/23 04: RDW 12.8 % (12.0-15.0) 03/12/23 04: Plt Count 309 10^3/uL (130-450) 03/12/23 04: MPV 9.6 fL (7.4-11.4) 03/12/23 04:23 Neut # (Auto) 4.1 10^3/uL (1.5-6.6) 03/05/23 05:20 Lymph # (Auto) 2.8 10^3/uL (1.5-3.5) 03/05/23 05:20 [place] # (Auto) 0.6 10^3/uL (0.0-1.0) 03/05/23 05:20 Eos # (Auto) 0.3 10^3/uL (0.0-0.7) 03/05/23 05:20 Baso # (Auto) 0.0 10^3/uL (0.0-0.1) 03/05/23 05:20 Absolute Nucleated RBC 0.00 x10^3/uL 03/05/23 05:20 Total Counted 100 02/14/23 03:15 Band Neuts % (Manual) 9 % (0-10) 02/14/23 03:15 Abnorm Lymph % (Manual) 0 % 02/14/23 03:15 Nucleated RBC % 0.0 /100WBC 03/05/23 05:20 Neutrophils # (Manual) 18.2 10^3/uL (1.5-6.6) H 02/14/23 03:15 Lymphocytes # (Manual) 1.0 10^3/uL (1.5-3.5) L 02/14/23 03:15 Monocytes # (Manual) 1.2 10^3/uL (0.0-1.0) H 02/14/23 03:15 Eosinophils # (Manual) 0.0 10^3/uL (0-0.7) 02/14/23 03:15 Basophils # (Manual) 0.0 10^3/uL (0-0.1) 02/14/23 03:15 Differential Comment MANUAL DIFFERENTIAL 02/14/23 03:15 Sodium 137 mmol/L (135-145) 03/12/23 04:23 Potassium 3.9 mmol/L (3.5-5.0) 03/12/23 04:23 Chloride 102 mmol/L (101-111) 03/12/23 04:23 Carbon Dioxide 27 mmol/L (21-32) 03/12/23 04:23 Anion Gap 8.0 (6-13) 03/12/23 04:23 BUN 29 mg/dL (6-20) H 03/12/23 04:23 Creatinine 1.3 mg/dL (0.6-1.2) H 03/12/23 04:23 Estimated GFR (MDRD) 57 (>89) L 03/12/23 04:23 Glucose 106 mg/dL (70-100) H 03/12/23 04:23 POC Whole Bld Glucose 103 mg/dL (70 - 100) H 03/14/23 07:38 Estimat Average Glucose 134 mg/dL (70-100) H 02/15/23 05:20 Hemoglobin A1c % 6.3 % (4.27-6.07) H 02/15/23 05:20 Calcium 9.5 mg/dL (8.5-10.3) 03/12/23 04:23 Magnesium 1.5 mg/dL (1.7-2.8) L 02/17/23 05:35 Total Bilirubin 0.3 mg/dL (0.2-1.0) 03/03/23 04:48 AST 25 IU/L (10-42) 03/03/23 04:48 ALT 33 IU/L (10-60) 03/03/23 04:48 Alkaline Phosphatase 77 IU/L (42-121) 03/03/23 04:48 Total Creatine Kinase 440 IU/L (22-269) H 02/23/23 14:10 CK-MB (CK-2) 265.9 ng/mL (0.6-6.3) H 02/14/23 03:15 Total Protein 7.2 g/dL (6.7-8.2) 03/03/23 04:48 Albumin 4.0 g/dL (3.2-5.5) 03/03/23 04:48 Globulin 3.2 g/dL (2.1-4.2) 03/03/23 04:48 Albumin/Globulin Ratio 1.3 (1.0-2.2) 03/03/23 04:48 Lipase 34 U/L (22-51) 02/14/23 03:15 TSH 1.21 uIU/mL (0.34-5.60) 02/14/23 03:15 Urine Color YELLOW 02/18/23 15:10 Urine Clarity CLEAR (CLEAR) 02/18/23 15:10 Urine pH 5.5 PH (5.0-7.5) 02/18/23 15:10 Ur Specific [place] 1.020 (1.002-1.030) 02/18/23 15:10 Urine Protein NEGATIVE mg/dL (NEGATIVE) 02/18/23 15:10 Urine Glucose (UA) NEGATIVE mg/dL (NEGATIVE) 02/18/23 15:10 Urine Ketones NEGATIVE mg/dL (NEGATIVE) 02/18/23 15:10 Urine Occult Blood MODERATE (NEGATIVE) H 02/18/23 15:10 Urine Nitrite NEGATIVE (NEGATIVE) 02/18/23 15:10 Urine Bilirubin NEGATIVE (NEGATIVE) 02/18/23 15:10 Urine Urobilinogen 0.2 (NORMAL) E.U./dL (NORMAL) 02/18/23 15:10 Ur Leukocyte Esterase TRACE (NEGATIVE) H 02/18/23 15:10 Urine RBC 11-25 /HPF (0-5) H 02/18/23 15:10 Urine WBC 6-10 /HPF (0-3) H 02/18/23 15:10 Ur Squamous Epith Cells RARE Squamous (<= Few) 02/18/23 15:10 Urine Bacteria None Seen /HPF (None Seen) 02/18/23 15:10 Urine Sperm PRESENT 02/18/23 15:10 Ur Microscopic Review INDICATED 02/14/23 10:34 Urine Culture Comments INDICATED 02/18/23 15:10 Urine Opiates Screen NEGATIVE (NEGATIVE) 02/14/23 10:34 Ur Oxycodone Screen NEGATIVE (NEGATIVE) 02/14/23 10:34 Urine Methadone Screen NEGATIVE (NEGATIVE) 02/14/23 10:34 Ur Propoxyphene Screen NEGATIVE (NEGATIVE) 02/14/23 10:34 Ur Barbiturates Screen NEGATIVE (NEGATIVE) 02/14/23 10:34 Ur Tricyclics Screen NEGATIVE (NEGATIVE) 02/14/23 10:34 Ur Phencyclidine Scrn NEGATIVE (NEGATIVE) 02/14/23 10:34 Ur Amphetamine Screen NEGATIVE (NEGATIVE) 02/14/23 10:34 U Methamphetamines Scrn NEGATIVE (NEGATIVE) 02/14/23 10:34 U Benzodiazepines Scrn NEGATIVE (NEGATIVE) 02/14/23 10:34 Urine Cocaine Screen NEGATIVE (NEGATIVE) 02/14/23 10:34 U Cannabinoids Screen POSITIVE (NEGATIVE) H 02/14/23 10:34 Ethyl Alcohol < 5.0 mg/dL 02/14/23 03:15
[2023-03-29] MEDS: DOCUSATE SODIUM 250 MG CAPSULE PO SCH ×2 (08:53→20:50)
[2023-03-29] MEDS: MAGNESIUM OXIDE 400 MG TABLET PO SCH (08:53)
[2023-03-29] MEDS: ASPIRIN EC 81 MG TABLET PO SCH (08:53)
[2023-03-29] MEDS: polyethylene glycoL 3350 17 GM PACKET PO SCH (08:53)
[2023-03-29] MEDS: SENNA 8.6 MG TABLET PO SCH ×2 (08:53→20:50)
[2023-03-29] MEDS: metFORMIN 500 MG TABLET PO SCH ×2 (08:53→16:39)
[2023-03-29] MEDS: LORazepam 0.5 MG TABLET SL SCH ×2 (08:53→20:50)
[2023-03-29] MEDS: DULoxetine 30 MG CAPSULE PO SCH (08:53)
[2023-03-29] MEDS: MULTIVITAMIN W/MINERALS TABLET PO SCH (08:53)
[2023-03-29] MEDS: OLANZapine ODT 5 MG TABLET TL SCH ×3 (08:53→20:50)
[2023-03-29] MEDS: FLUTICASONE NASAL SPRAY NAS SCH (09:00)
--- NOTE | 2023-03-29 13:01 | PROVIDER PROGRESS NOTE ---
Assessment/Plan - Problem List (1) Major depressive disorder, recurrent, severe with psychotic symptoms Assessment/Plan: He was admitted with multiple falls. Increasing psychosis. To the point he became catatonic. He has now been here over 35 days. There has been remarkable and positive improvement. Most of the change came from resuming his Risperdal 3 mg twice daily, and adding a benzodiazepine for the catatonia. His psychiatrist let us know that they have been working on permanent placement for him. Its been slow going. He was living with his girlfriend/caregiver. Caregiver burden has been too difficult for her recently. We now have DPOA with his daughter. Daughter is amenable to having him placed. At this time we are awaiting for an adult family home to finalize all the paperwork. Social work, case management are working to get the details together. On 03/21, I sat with the patient to discuss his wishes and to complete a POLST form, which was accomplished. Otherwise there is no new information for this patient. No orders written today All of his problems have been resolved or stable for weeks as we wait for placement. (2) No able caregiver in household Assessment/Plan: He was living with his girlfriend/caregiver. Caregiver burden has been too difficult for her recently, and she had to leave him unaccompanied at night, when she worked. Plan: Permanent placement is being worked on by our social services analyst, working with his daughter who is now the DPOA. There is a retirement that will likely take him, and that will probably be next week per SW. (3) Chronic psychosis still present. He is still hallucinating at times. But much more controllable. (4) Chronic kidney disease. Acute kidney injury has resolved in the face of rhabdomyolysis and many falls. His creat of 1.3-1.4 is his new baseline. Patient has been at baseline since approximately February 19. He has no longer needed IV fluids. (5) Type 2 diabetes mellitus, controlled. A1c was 6.3%. He is eating 100% of his meals. Metformin resumed February 22. Glucose is controlled. We stopped fingerstick checks at [facility] many days ago. (6) Rectal fissures or abrasions. Part of his psychosis is that aliens or Indians are shoving things in his rectum. He would use his fingers to manually disimpact himself. He gave himself the rectal cuts. He still says that those things that are tucked into his rectum and sometimes speak to him. But he is having less and less agitation with this. (7) Falls at home. Unclear why he kept on falling. He was not intoxicated. No seizures, no syncope. No orthostasis. Not under the influence of any recreational substance, however we suspect he got Suboxone patch haphazardly. His last prescription was written a year ago and it was ordered for 13 weeks. However there were still several patches available in a box that his caregiver brought from home. so we suspect he was intermittently oversedated on his buprenorphine patch, so we stopped the patch entirely and he has had no pain complaints. Here he is now walking with a walker and does so on a regular basis. He did have 1 fall in the hospital where he was leaning forward and he started going toward the floor and the nurse pushed him back. (8) Abrasions of multiple sites due to frequent falls. Photographs taken by nursing. These have all healed. (9) Poor hygiene on admission. He is taking showers here on a more regular basis. (10) Abnormal EKG. Echo was done to make sure he did not have cor pulmonale and Echo was normal. (11) Left arm swelling. Duplex Doppler - February 18 ws neg (12) Right third toe infection. Resolved. Completed Keflex February 28. (13) Rhabdomyolysis This was from the falls and has resolved. (14) Catatonia has resolved after restarting Risperdal 3 mg twice daily, and adding a Benzodiazepine. - Current Meds Current Meds: Current Medications Generic Name Dose Route Start Last Admin Trade Name Jyoti PRN Reason Stop Dose Admin Acetaminophen 650 mg 02/15/23 19:57 03/26/23 20:56 Acetaminophen 325 Mg Tablet PO 650 mg Q4HR PRN Administration Pain or Fever > 38C (100.4F) Aspirin 81 mg 02/18/23 09:00 03/29/23 08:53 Aspirin Ec 81 Mg Tablet PO 81 mg DAILY ANGELA Administration Docusate Sodium 250 - 500 mg 02/26/23 17:00 03/29/23 08:53 Docusate Sodium 250 Mg Capsule PO 250 mg BID ANGELA Administration Duloxetine HCl 30 mg 02/15/23 13:30 03/29/23 08:53 Duloxetine 30 Mg Capsule PO 30 mg DAILY ANGELA Administration Fluticasone Propionate 1 sprays 02/17/23 09:00 03/29/23 09:00 Fluticasone Nasal [place] CRISTIAN 1 spray DAILY ANGELA Administration Haloperidol 2 mg 02/22/23 13:06 02/26/23 14:41 Haloperidol 5 Mg/Ml Vial IM 2 mg DAILY PRN Administration Agitation Ibuprofen 600 mg 02/15/23 19:57 03/03/23 20:57 Ibuprofen 600 Mg Tablet PO 600 mg Q6HR PRN Administration MINOR PAIN Lidocaine HCl 1 ml 02/23/23 13:54 02/26/23 13:59 Lidocaine Jelly 2% 6 Ml Jel.Pf.Shanda TOP 1 ml TID PRN Administration anal itching pain Lorazepam 0.5 mg 02/21/23 21:00 03/29/23 08:53 Lorazepam 0.5 Mg Tablet SL 0.5 mg BID ANGELA Administration Magnesium Oxide 400 mg 02/16/23 08:00 03/29/23 08:53 Magnesium Oxide 400 Mg Tablet PO 400 mg DAILYWM ANGELA Administration Metformin HCl 1,000 mg 03/17/23 17:00 03/29/23 08:53 Metformin 500 Mg Tablet PO 1,000 mg 0800,1700 ANGELA Administration Multivitamins/Minerals 1 tab 02/18/23 09:00 03/29/23 08:53 Multivitamin W/Minerals Tablet PO 1 tab DAILYWM ANGELA Administration Olanzapine 5 mg 02/23/23 21:00 03/29/23 09:28 Olanzapine Odt 5 Mg Tablet TL 5 mg BID ANGELA Administration Polyethylene Glycol 17 gm 02/17/23 18:00 03/29/23 08:53 Polyethylene Glycol 3350 17 Gm Packet PO 17 gm DAILY ANGELA Administration Senna 8.6 - 17.2 mg 02/26/23 17:00 03/29/23 08:53 Senna 8.6 Mg Tablet PO 8.6 mg BID ANGELA Administration - Lab Result Fish Bone Diagrams: 03/12/23 04:23 03/12/23 04:23 Subjective - Subjective Patient Reports: No Complaints Objective Vital Signs: Vital Signs - 24 hr 03/29/23 08:05 Temperature 36.4 C L Heart Rate [ 64 Brachial] Respiratory 18 Rate Blood Pressure 108/58 L [Right Brachial artery] O2 Saturation 93 Oxygen O2 Source Room air I&O (Last 24 Hrs): Intake and Output Totals x24h 03/27/23 03/28/23 03/29/23 23:59 23:59 23:59 Intake Total 1200 2000 380 Output Total 240 250 Balance 960 2000 130 General: Alert HEENT: Mucous membr. moist/pink, Other (Disheveled) Neck: Supple Cardiovascular: Regular rate Respiratory: No respiratory distress Abdomen: No tenderness Extremities: No clubbing, No edema - Results Results: Laboratory Results WBC 10.0 x10^3/uL (4.8-10.8) 03/12/23 04:23 RBC 4.22 10^6/uL (4.70-6.10) L 03/12/23 04: Hgb 12.6 g/dL (14.0-18.0) L 03/12/23 04: Hct 37.4 % (42.0-52.0) L 03/12/23 04: MCV 88.6 fL (80.0-94.0) 03/12/23 04:23 MCH 29.9 pg (27.0-31.0) 03/12/23 04: MCHC 33.7 g/dL (32.0-36.0) 03/12/23 04: RDW 12.8 % (12.0-15.0) 03/12/23 04: Plt Count 309 10^3/uL (130-450) 03/12/23 04:23 MPV 9.6 fL (7.4-11.4) 03/12/23 04:23 Neut # (Auto) 4.1 10^3/uL (1.5-6.6) 03/05/23 05:20 Lymph # (Auto) 2.8 10^3/uL (1.5-3.5) 03/05/23 05:20 [place] # (Auto) 0.6 10^3/uL (0.0-1.0) 03/05/23 05:20 Eos # (Auto) 0.3 10^3/uL (0.0-0.7) 03/05/23 05:20 Baso # (Auto) 0.0 10^3/uL (0.0-0.1) 03/05/23 05:20 Absolute Nucleated RBC 0.00 x10^3/uL 03/05/23 05:20 Total Counted 100 02/14/23 03:15 Band Neuts % (Manual) 9 % (0-10) 02/14/23 03:15 Abnorm Lymph % (Manual) 0 % 02/14/23 03:15 Nucleated RBC % 0.0 /100WBC 03/05/23 05:20 Neutrophils # (Manual) 18.2 10^3/uL (1.5-6.6) H 02/14/23 03:15 Lymphocytes # (Manual) 1.0 10^3/uL (1.5-3.5) L 02/14/23 03:15 Monocytes # (Manual) 1.2 10^3/uL (0.0-1.0) H 02/14/23 03:15 Eosinophils # (Manual) 0.0 10^3/uL (0-0.7) 02/14/23 03:15 Basophils # (Manual) 0.0 10^3/uL (0-0.1) 02/14/23 03:15 Differential Comment MANUAL DIFFERENTIAL 02/14/23 03:15 Sodium 137 mmol/L (135-145) 03/12/23 04:23 Potassium 3.9 mmol/L (3.5-5.0) 03/12/23 04:23 Chloride 102 mmol/L (101-111) 03/12/23 04:23 Carbon Dioxide 27 mmol/L (21-32) 03/12/23 04:23 Anion Gap 8.0 (6-13) 03/12/23 04:23 BUN 29 mg/dL (6-20) H 03/12/23 04:23 Creatinine 1.3 mg/dL (0.6-1.2) H 03/12/23 04:23 Estimated GFR (MDRD) 57 (>89) L 03/12/23 04:23 Glucose 106 mg/dL (70-100) H 03/12/23 04:23 POC Whole Bld Glucose 103 mg/dL (70 - 100) H 03/14/23 07:38 Estimat Average Glucose 134 mg/dL (70-100) H 02/15/23 05:20 Hemoglobin A1c % 6.3 % (4.27-6.07) H 02/15/23 05:20 Calcium 9.5 mg/dL (8.5-10.3) 03/12/23 04:23 Magnesium 1.5 mg/dL (1.7-2.8) L 02/17/23 05:35 Total Bilirubin 0.3 mg/dL (0.2-1.0) 03/03/23 04:48 AST 25 IU/L (10-42) 03/03/23 04:48 ALT 33 IU/L (10-60) 03/03/23 04:48 Alkaline Phosphatase 77 IU/L (42-121) 03/03/23 04:48 Total Creatine Kinase 440 IU/L (22-269) H 02/23/23 14:10 CK-MB (CK-2) 265.9 ng/mL (0.6-6.3) H 02/14/23 03:15 Total Protein 7.2 g/dL (6.7-8.2) 03/03/23 04:48 Albumin 4.0 g/dL (3.2-5.5) 03/03/23 04:48 Globulin 3.2 g/dL (2.1-4.2) 03/03/23 04:48 Albumin/Globulin Ratio 1.3 (1.0-2.2) 03/03/23 04:48 Lipase 34 U/L (22-51) 02/14/23 03:15 TSH 1.21 uIU/mL (0.34-5.60) 02/14/23 03:15 Urine Color YELLOW 02/18/23 15:10 Urine Clarity CLEAR (CLEAR) 02/18/23 15:10 Urine pH 5.5 PH (5.0-7.5) 02/18/23 15:10 Ur Specific [place] 1.020 (1.002-1.030) 02/18/23 15:10 Urine Protein NEGATIVE mg/dL (NEGATIVE) 02/18/23 15:10 Urine Glucose (UA) NEGATIVE mg/dL (NEGATIVE) 02/18/23 15:10 Urine Ketones NEGATIVE mg/dL (NEGATIVE) 02/18/23 15:10 Urine Occult Blood MODERATE (NEGATIVE) H 02/18/23 15:10 Urine Nitrite NEGATIVE (NEGATIVE) 02/18/23 15:10 Urine Bilirubin NEGATIVE (NEGATIVE) 02/18/23 15:10 Urine Urobilinogen 0.2 (NORMAL) E.U./dL (NORMAL) 02/18/23 15:10 Ur Leukocyte Esterase TRACE (NEGATIVE) H 02/18/23 15:10 Urine RBC 11-25 /HPF (0-5) H 02/18/23 15:10 Urine WBC 6-10 /HPF (0-3) H 02/18/23 15:10 Ur Squamous Epith Cells RARE Squamous (<= Few) 02/18/23 15:10 Urine Bacteria None Seen /HPF (None Seen) 02/18/23 15:10 Urine Sperm PRESENT 02/18/23 15:10 Ur Microscopic Review INDICATED 02/14/23 10:34 Urine Culture Comments INDICATED 02/18/23 15:10 Urine Opiates Screen NEGATIVE (NEGATIVE) 02/14/23 10:34 Ur Oxycodone Screen NEGATIVE (NEGATIVE) 02/14/23 10:34 Urine Methadone Screen NEGATIVE (NEGATIVE) 02/14/23 10:34 Ur Propoxyphene Screen NEGATIVE (NEGATIVE) 02/14/23 10:34 Ur Barbiturates Screen NEGATIVE (NEGATIVE) 02/14/23 10:34 Ur Tricyclics Screen NEGATIVE (NEGATIVE) 02/14/23 10:34 Ur Phencyclidine Scrn NEGATIVE (NEGATIVE) 02/14/23 10:34 Ur Amphetamine Screen NEGATIVE (NEGATIVE) 02/14/23 10:34 U Methamphetamines Scrn NEGATIVE (NEGATIVE) 02/14/23 10:34 U Benzodiazepines Scrn NEGATIVE (NEGATIVE) 02/14/23 10:34 Urine Cocaine Screen NEGATIVE (NEGATIVE) 02/14/23 10:34 U Cannabinoids Screen POSITIVE (NEGATIVE) H 02/14/23 10:34 Ethyl Alcohol < 5.0 mg/dL 02/14/23 03:15
[2023-03-30] MEDS: ASPIRIN EC 81 MG TABLET PO SCH (08:10)
[2023-03-30] MEDS: polyethylene glycoL 3350 17 GM PACKET PO SCH (08:10)
[2023-03-30] MEDS: DOCUSATE SODIUM 250 MG CAPSULE PO SCH ×2 (08:10→20:35)
[2023-03-30] MEDS: OLANZapine ODT 5 MG TABLET TL SCH ×2 (08:11→20:37)
[2023-03-30] MEDS: DULoxetine 30 MG CAPSULE PO SCH (08:11)
[2023-03-30] MEDS: LORazepam 0.5 MG TABLET SL SCH ×2 (08:11→20:36)
[2023-03-30] MEDS: metFORMIN 500 MG TABLET PO SCH ×2 (08:11→16:48)
[2023-03-30] MEDS: MULTIVITAMIN W/MINERALS TABLET PO SCH (08:11)
[2023-03-30] MEDS: MAGNESIUM OXIDE 400 MG TABLET PO SCH (08:11)
[2023-03-30] MEDS: FLUTICASONE NASAL SPRAY NAS SCH (08:12)
[2023-03-30] MEDS: SENNA 8.6 MG TABLET PO SCH ×2 (08:12→20:35)
--- NOTE | 2023-03-30 10:20 | PROVIDER PROGRESS NOTE ---
Assessment/Plan - Problem List (1) Major depressive disorder, recurrent, severe with psychotic symptoms Assessment/Plan: He was admitted with multiple falls. Increasing psychosis. To the point he became catatonic. He has now been here over 35 days. There has been remarkable and positive improvement. Most of the change came from resuming his Risperdal 3 mg twice daily, and adding a benzodiazepine for the catatonia. His psychiatrist let us know that they have been working on permanent placement for him. Its been slow going. He was living with his girlfriend/caregiver. Caregiver burden has been too difficult for her recently. We now have DPOA with his daughter. Daughter is amenable to having him placed. At this time we are awaiting for an adult family home to finalize all the paperwork. Social work, case management are working to get the details together. On 03/21, I sat with the patient to discuss his wishes and to complete a POLST form, which was accomplished. Otherwise there is no new information for this patient. No orders written today All of his problems have been resolved or stable for weeks as we wait for placement. (2) No able caregiver in household Assessment/Plan: He was living with his girlfriend/caregiver. Caregiver burden has been too difficult for her recently, and she had to leave him unaccompanied at night, when she worked. Plan: Permanent placement is being worked on by our social services technician, working with his daughter who is now the DPOA. There is a fpc that will likely take him, and that will probably be next week per SW. (3) Chronic psychosis still present. He is still hallucinating at times. But much more controllable. (4) Chronic kidney disease. Acute kidney injury has resolved in the face of rhabdomyolysis and many falls. His creat of 1.3-1.4 is his new baseline. Patient has been at baseline since approximately February 19. He has no longer needed IV fluids. (5) Type 2 diabetes mellitus, controlled. A1c was 6.3%. He is eating 100% of his meals. Metformin resumed February 22. Glucose is controlled. We stopped fingerstick checks at [facility] many days ago. (6) Rectal fissures or abrasions. Part of his psychosis is that aliens or Indians are shoving things in his rectum. He would use his fingers to manually disimpact himself. He gave himself the rectal cuts. He still says that those things that are tucked into his rectum and sometimes speak to him. But he is having less and less agitation with this. (7) Falls at home. Unclear why he kept on falling. He was not intoxicated. No seizures, no syncope. No orthostasis. Not under the influence of any recreational substance, however we suspect he got Suboxone patch haphazardly. His last prescription was written a year ago and it was ordered for 13 weeks. However there were still several patches available in a box that his caregiver brought from home. so we suspect he was intermittently oversedated on his buprenorphine patch, so we stopped the patch entirely and he has had no pain complaints. Here he is now walking with a walker and does so on a regular basis. He did have 1 fall in the hospital where he was leaning forward and he started going toward the floor and the nurse pushed him back. (8) Abrasions of multiple sites due to frequent falls. Photographs taken by nursing. These have all healed. (9) Poor hygiene on admission. He is taking showers here on a more regular basis. (10) Abnormal EKG. Echo was done to make sure he did not have cor pulmonale and Echo was normal. (11) Left arm swelling. Duplex Doppler - February 18 ws neg (12) Right third toe infection. Resolved. Completed Keflex February 28. (13) Rhabdomyolysis This was from the falls and has resolved. (14) Catatonia has resolved after restarting Risperdal 3 mg twice daily, and adding a Benzodiazepine. - Current Meds Current Meds: Current Medications Generic Name Dose Route Start Last Admin Trade Name Jyoti PRN Reason Stop Dose Admin Acetaminophen 650 mg 02/15/23 19:57 03/26/23 20:56 Acetaminophen 325 Mg Tablet PO 650 mg Q4HR PRN Administration Pain or Fever > 38C (100.4F) Aspirin 81 mg 02/18/23 09:00 03/30/23 08:10 Aspirin Ec 81 Mg Tablet PO 81 mg DAILY ANGELA Administration Docusate Sodium 250 - 500 mg 02/26/23 17:00 03/30/23 08:10 Docusate Sodium 250 Mg Capsule PO 250 mg BID ANGELA Administration Duloxetine HCl 30 mg 02/15/23 13:30 03/30/23 08:11 Duloxetine 30 Mg Capsule PO 30 mg DAILY ANGELA Administration Fluticasone Propionate 1 sprays 02/17/23 09:00 03/30/23 08:12 Fluticasone Nasal [place] CRISTIAN 1 spray DAILY ANGELA Administration Haloperidol 2 mg 02/22/23 13:06 02/26/23 14:41 Haloperidol 5 Mg/Ml Vial IM 2 mg DAILY PRN Administration Agitation Ibuprofen 600 mg 02/15/23 19:57 03/03/23 20:57 Ibuprofen 600 Mg Tablet PO 600 mg Q6HR PRN Administration MINOR PAIN Lidocaine HCl 1 ml 02/23/23 13:54 02/26/23 13:59 Lidocaine Jelly 2% 6 Ml Jel.Pf.Shanda TOP 1 ml TID PRN Administration anal itching pain Lorazepam 0.5 mg 02/21/23 21:00 03/30/23 08:11 Lorazepam 0.5 Mg Tablet SL 0.5 mg BID ANGELA Administration Magnesium Oxide 400 mg 02/16/23 08:00 03/30/23 08:11 Magnesium Oxide 400 Mg Tablet PO 400 mg DAILYWM ANGELA Administration Metformin HCl 1,000 mg 03/17/23 17:00 03/30/23 08:11 Metformin 500 Mg Tablet PO 1,000 mg 0800,1700 ANGELA Administration Multivitamins/Minerals 1 tab 02/18/23 09:00 03/30/23 08:11 Multivitamin W/Minerals Tablet PO 1 tab DAILYWM ANGELA Administration Olanzapine 5 mg 02/23/23 21:00 03/30/23 08:11 Olanzapine Odt 5 Mg Tablet TL 5 mg BID ANGELA Administration Polyethylene Glycol 17 gm 02/17/23 18:00 03/30/23 08:10 Polyethylene Glycol 3350 17 Gm Packet PO 17 gm DAILY ANGELA Administration Senna 8.6 - 17.2 mg 02/26/23 17:00 03/30/23 08:12 Senna 8.6 Mg Tablet PO 8.6 mg BID ANGELA Administration - Lab Result Fish Bone Diagrams: 03/12/23 04:23 03/12/23 04:23 Subjective - Subjective Patient Reports: No Complaints Objective Vital Signs: Vital Signs - 24 hr 03/30/23 08:02 Temperature 36.3 C L Heart Rate [ 55 L Brachial] Respiratory 18 Rate Blood Pressure 111/77 [Right Brachial artery] O2 Saturation 97 Oxygen O2 Source Room air I&O (Last 24 Hrs): Intake and Output Totals x24h 03/28/23 03/29/23 03/30/23 23:59 23:59 23:59 Intake Total 1999 920 480 Output Total 250 Balance 1999 670 480 General: Alert, Oriented x3 HEENT: Mucous membr. moist/pink, Other (disheveled) Neuro: Alert, Non Focal Cardiovascular: Regular rate Respiratory: No respiratory distress Extremities: No clubbing, No edema - Results Results: Laboratory Results WBC 10.0 x10^3/uL (4.8-10.8) 03/12/23 04: RBC 4.22 10^6/uL (4.70-6.10) L 03/12/23 04: Hgb 12.6 g/dL (14.0-18.0) L 03/12/23 04: Hct 37.4 % (42.0-52.0) L 03/12/23 04: MCV 88.6 fL (80.0-94.0) 03/12/23 04:23 MCH 29.9 pg (27.0-31.0) 03/12/23 04: MCHC 33.7 g/dL (32.0-36.0) 03/12/23 04: RDW 12.8 % (12.0-15.0) 03/12/23 04: Plt Count 309 10^3/uL (130-450) 03/12/23 04: MPV 9.6 fL (7.4-11.4) 03/12/23 04:23 Neut # (Auto) 4.1 10^3/uL (1.5-6.6) 03/05/23 05:20 Lymph # (Auto) 2.8 10^3/uL (1.5-3.5) 03/05/23 05:20 [place] # (Auto) 0.6 10^3/uL (0.0-1.0) 03/05/23 05:20 Eos # (Auto) 0.3 10^3/uL (0.0-0.7) 03/05/23 05:20 Baso # (Auto) 0.0 10^3/uL (0.0-0.1) 03/05/23 05:20 Absolute Nucleated RBC 0.00 x10^3/uL 03/05/23 05:20 Total Counted 100 02/14/23 03:15 Band Neuts % (Manual) 9 % (0-10) 02/14/23 03:15 Abnorm Lymph % (Manual) 0 % 02/14/23 03:15 Nucleated RBC % 0.0 /100WBC 03/05/23 05:20 Neutrophils # (Manual) 18.2 10^3/uL (1.5-6.6) H 02/14/23 03:15 Lymphocytes # (Manual) 1.0 10^3/uL (1.5-3.5) L 02/14/23 03:15 Monocytes # (Manual) 1.2 10^3/uL (0.0-1.0) H 02/14/23 03:15 Eosinophils # (Manual) 0.0 10^3/uL (0-0.7) 02/14/23 03:15 Basophils # (Manual) 0.0 10^3/uL (0-0.1) 02/14/23 03:15 Differential Comment MANUAL DIFFERENTIAL 02/14/23 03:15 Sodium 137 mmol/L (135-145) 03/12/23 04:23 Potassium 3.9 mmol/L (3.5-5.0) 03/12/23 04:23 Chloride 102 mmol/L (101-111) 03/12/23 04:23 Carbon Dioxide 27 mmol/L (21-32) 03/12/23 04:23 Anion Gap 8.0 (6-13) 03/12/23 04:23 BUN 29 mg/dL (6-20) H 03/12/23 04:23 Creatinine 1.3 mg/dL (0.6-1.2) H 03/12/23 04:23 Estimated GFR (MDRD) 57 (>89) L 03/12/23 04:23 Glucose 106 mg/dL (70-100) H 03/12/23 04:23 POC Whole Bld Glucose 103 mg/dL (70 - 100) H 03/14/23 07:38 Estimat Average Glucose 134 mg/dL (70-100) H 02/15/23 05:20 Hemoglobin A1c % 6.3 % (4.27-6.07) H 02/15/23 05:20 Calcium 9.5 mg/dL (8.5-10.3) 03/12/23 04:23 Magnesium 1.5 mg/dL (1.7-2.8) L 02/17/23 05:35 Total Bilirubin 0.3 mg/dL (0.2-1.0) 03/03/23 04:48 AST 25 IU/L (10-42) 03/03/23 04:48 ALT 33 IU/L (10-60) 03/03/23 04:48 Alkaline Phosphatase 77 IU/L (42-121) 03/03/23 04:48 Total Creatine Kinase 440 IU/L (22-269) H 02/23/23 14:10 CK-MB (CK-2) 265.9 ng/mL (0.6-6.3) H 02/14/23 03:15 Total Protein 7.2 g/dL (6.7-8.2) 03/03/23 04:48 Albumin 4.0 g/dL (3.2-5.5) 03/03/23 04:48 Globulin 3.2 g/dL (2.1-4.2) 03/03/23 04:48 Albumin/Globulin Ratio 1.3 (1.0-2.2) 03/03/23 04:48 Lipase 34 U/L (22-51) 02/14/23 03:15 TSH 1.21 uIU/mL (0.34-5.60) 02/14/23 03:15 Urine Color YELLOW 02/18/23 15:10 Urine Clarity CLEAR (CLEAR) 02/18/23 15:10 Urine pH 5.5 PH (5.0-7.5) 02/18/23 15:10 Ur Specific [place] 1.020 (1.002-1.030) 02/18/23 15:10 Urine Protein NEGATIVE mg/dL (NEGATIVE) 02/18/23 15:10 Urine Glucose (UA) NEGATIVE mg/dL (NEGATIVE) 02/18/23 15:10 Urine Ketones NEGATIVE mg/dL (NEGATIVE) 02/18/23 15:10 Urine Occult Blood MODERATE (NEGATIVE) H 02/18/23 15:10 Urine Nitrite NEGATIVE (NEGATIVE) 02/18/23 15:10 Urine Bilirubin NEGATIVE (NEGATIVE) 02/18/23 15:10 Urine Urobilinogen 0.2 (NORMAL) E.U./dL (NORMAL) 02/18/23 15:10 Ur Leukocyte Esterase TRACE (NEGATIVE) H 02/18/23 15:10 Urine RBC 11-25 /HPF (0-5) H 02/18/23 15:10 Urine WBC 6-10 /HPF (0-3) H 02/18/23 15:10 Ur Squamous Epith Cells RARE Squamous (<= Few) 02/18/23 15:10 Urine Bacteria None Seen /HPF (None Seen) 02/18/23 15:10 Urine Sperm PRESENT 02/18/23 15:10 Ur Microscopic Review INDICATED 02/14/23 10:34 Urine Culture Comments INDICATED 02/18/23 15:10 Urine Opiates Screen NEGATIVE (NEGATIVE) 02/14/23 10:34 Ur Oxycodone Screen NEGATIVE (NEGATIVE) 02/14/23 10:34 Urine Methadone Screen NEGATIVE (NEGATIVE) 02/14/23 10:34 Ur Propoxyphene Screen NEGATIVE (NEGATIVE) 02/14/23 10:34 Ur Barbiturates Screen NEGATIVE (NEGATIVE) 02/14/23 10:34 Ur Tricyclics Screen NEGATIVE (NEGATIVE) 02/14/23 10:34 Ur Phencyclidine Scrn NEGATIVE (NEGATIVE) 02/14/23 10:34 Ur Amphetamine Screen NEGATIVE (NEGATIVE) 02/14/23 10:34 U Methamphetamines Scrn NEGATIVE (NEGATIVE) 02/14/23 10:34 U Benzodiazepines Scrn NEGATIVE (NEGATIVE) 02/14/23 10:34 Urine Cocaine Screen NEGATIVE (NEGATIVE) 02/14/23 10:34 U Cannabinoids Screen POSITIVE (NEGATIVE) H 02/14/23 10:34 Ethyl Alcohol < 5.0 mg/dL 02/14/23 03:15
[2023-03-30] MEDS: ACETAMINOPHEN 325 MG TABLET PO PRN (16:56)
[2023-03-31] MEDS: ASPIRIN EC 81 MG TABLET PO SCH (09:00)
[2023-03-31] MEDS: metFORMIN 500 MG TABLET PO SCH ×2 (09:00→16:39)
[2023-03-31] MEDS: MULTIVITAMIN W/MINERALS TABLET PO SCH (09:00)
[2023-03-31] MEDS: MAGNESIUM OXIDE 400 MG TABLET PO SCH (09:00)
[2023-03-31] MEDS: LORazepam 0.5 MG TABLET SL SCH ×2 (09:00→20:40)
[2023-03-31] MEDS: DULoxetine 30 MG CAPSULE PO SCH (09:00)
[2023-03-31] MEDS: DOCUSATE SODIUM 250 MG CAPSULE PO SCH ×2 (09:02→20:40)
[2023-03-31] MEDS: SENNA 8.6 MG TABLET PO SCH ×2 (09:03→20:40)
[2023-03-31] MEDS: OLANZapine ODT 5 MG TABLET TL SCH ×2 (09:03→20:40)
[2023-03-31] MEDS: polyethylene glycoL 3350 17 GM PACKET PO SCH (09:03)
[2023-03-31] MEDS: FLUTICASONE NASAL SPRAY NAS SCH (09:04)
--- NOTE | 2023-03-31 11:00 | PROVIDER PROGRESS NOTE ---
Assessment/Plan - Problem List (1) Major depressive disorder, recurrent, severe with psychotic symptoms Assessment/Plan: He was admitted with multiple falls. Increasing psychosis. To the point he became catatonic. He has now been here over 35 days. There has been remarkable and positive improvement. Most of the change came from resuming his Risperdal 3 mg twice daily, and adding a benzodiazepine for the catatonia. His psychiatrist let us know that they have been working on permanent placement for him. Its been slow going. He was living with his girlfriend/caregiver. Caregiver burden has been too difficult for her recently. We now have DPOA with his daughter. Daughter is amenable to having him placed. At this time we are awaiting for an adult family home to finalize all the paperwork. Social work, case management are working to get the details together. On 03/21, I sat with the patient to discuss his wishes and to complete a POLST form, which was accomplished. Otherwise there is no new information for this patient. No orders written today All of his problems have been resolved or stable for weeks as we wait for placement. (2) No able caregiver in household Assessment/Plan: He was living with his girlfriend/caregiver. Caregiver burden has been too difficult for her recently, and she had to leave him unaccompanied at night, when she worked. Plan: Permanent placement is being worked on by our social psychologist, working with his daughter who is now the DPOA. There is a fpc that will likely take him, and that will probably be next week per SW. (3) Chronic psychosis still present. He is still hallucinating at times. But much more controllable. (4) Chronic kidney disease. Acute kidney injury has resolved in the face of rhabdomyolysis and many falls. His creat of 1.3-1.4 is his new baseline. Patient has been at baseline since approximately February 19. He has no longer needed IV fluids. (5) Type 2 diabetes mellitus, controlled. A1c was 6.3%. He is eating 100% of his meals. Metformin resumed February 22. Glucose is controlled. We [facility]stick checks at [facility] many days ago. (6) Rectal fissures or abrasions. Part of his psychosis is that aliens or Indians are shoving things in his rectum. He would use his fingers to manually disimpact himself. He gave himself the rectal cuts. He still says that those things that are tucked into his rectum and sometimes speak to him. But he is having less and less agitation with this. (7) Falls at home. Unclear why he kept on falling. He was not intoxicated. No seizures, no syncope. No orthostasis. Not under the influence of any recreational substance, however we suspect he got Suboxone patch haphazardly. His last prescription was written a year ago and it was ordered for 13 weeks. However there were still several patches available in a box that his caregiver brought from home. so we suspect he was intermittently oversedated on his buprenorphine patch, so we stopped the patch entirely and he has had no pain complaints. Here he is now walking with a walker and does so on a regular basis. He did have 1 fall in the hospital where he was leaning forward and he started going toward the floor and the nurse pushed him back. (8) Abrasions of multiple sites due to frequent falls. Photographs taken by nursing. These have all healed. (9) Poor hygiene on admission. He is taking showers here on a more regular basis. (10) Abnormal EKG. Echo was done to make sure he did not have cor pulmonale and Echo was normal. (11) Left arm swelling. Duplex Doppler - February 18 ws neg (12) Right third toe infection. Resolved. Completed Keflex February 28. (13) Rhabdomyolysis This was from the falls and has resolved. (14) Catatonia has resolved after restarting Risperdal 3 mg twice daily, and adding a Benzodiazepine. - Current Meds Current Meds: Current Medications Generic Name Dose Route Start Last Admin Trade Name Jyoti PRN Reason Stop Dose Admin Acetaminophen 650 mg 02/15/23 19:57 03/30/23 16:56 Acetaminophen 325 Mg Tablet PO 650 mg Q4HR PRN Administration Pain or Fever > 38C (100.4F) Aspirin 81 mg 02/18/23 09:00 03/31/23 09:00 Aspirin Ec 81 Mg Tablet PO 81 mg DAILY ANGELA Administration Docusate Sodium 250 - 500 mg 02/26/23 17:00 03/31/23 09:02 Docusate Sodium 250 Mg Capsule PO Not Given BID [facility] Duloxetine HCl 30 mg 02/15/23 13:30 03/31/23 09:00 Duloxetine 30 Mg Capsule PO 30 mg DAILY ANGELA Administration Fluticasone Propionate 1 sprays 02/17/23 09:00 03/31/23 09:04 Fluticasone Nasal [place] CRISTIAN 1 spray DAILY ANGELA Administration Haloperidol 2 mg 02/22/23 13:06 02/26/23 14:41 Haloperidol 5 Mg/Ml Vial IM 2 mg DAILY PRN Administration Agitation Ibuprofen 600 mg 02/15/23 19:57 03/03/23 20:57 Ibuprofen 600 Mg Tablet PO 600 mg Q6HR PRN Administration MINOR PAIN Lidocaine HCl 1 ml 02/23/23 13:54 02/26/23 13:59 Lidocaine Jelly 2% 6 Ml Jel.Pf.Shanda TOP 1 ml TID PRN Administration anal itching pain Lorazepam 0.5 mg 02/21/23 21:00 03/31/23 09:00 Lorazepam 0.5 Mg Tablet SL 0.5 mg BID ANGELA Administration Magnesium Oxide 400 mg 02/16/23 08:00 03/31/23 09:00 Magnesium Oxide 400 Mg Tablet PO 400 mg DAILYWM ANGELA Administration Metformin HCl 1,000 mg 03/17/23 17:00 03/31/23 09:00 Metformin 500 Mg Tablet PO 1,000 mg 0800,1700 ANGELA Administration Multivitamins/Minerals 1 tab 02/18/23 09:00 03/31/23 09:00 Multivitamin W/Minerals Tablet PO 1 tab DAILYWM ANGELA Administration Olanzapine 5 mg 02/23/23 21:00 03/31/23 09:03 Olanzapine Odt 5 Mg Tablet TL 5 mg BID ANGELA Administration Polyethylene Glycol 17 gm 02/17/23 18:00 03/31/23 09:03 Polyethylene Glycol 3350 17 Gm Packet PO Not Given DAILY ANGELA Senna 8.6 - 17.2 mg 02/26/23 17:00 03/31/23 09:03 Senna 8.6 Mg Tablet PO Not Given BID ANGELA - Lab Result Fish Bone Diagrams: 03/12/23 04:23 03/12/23 04:23 Subjective - Subjective Patient Reports: No Complaints Objective Vital Signs: Vital Signs - 24 hr 03/30/23 03/31/23 15:58 08:23 Temperature 36.8 C 36.3 C L Heart Rate [ 80 64 Brachial] Respiratory 16 18 Rate Blood Pressure 133/72 H 114/66 [Right Brachial artery] O2 Saturation 97 97 Oxygen O2 Source Room air I&O (Last 24 Hrs): Intake and Output Totals x24h 03/29/23 03/30/23 03/31/23 23:59 23:59 23:59 Intake Total 920 194 620 Output Total 250 Balance 670 194 620 General: Alert, Oriented x3 HEENT: Mucous membr. moist/pink, Other (Disheveled and has food bits on his long gilliam) Neuro: Alert, Non Focal Cardiovascular: Regular rate Respiratory: No respiratory distress Abdomen: No tenderness Extremities: No clubbing, No edema - Results Results: Laboratory Results WBC 10.0 x10^3/uL (4.8-10.8) 03/12/23 04:23 RBC 4.22 10^6/uL (4.70-6.10) L 03/12/23 04:23 Hgb 12.6 g/dL (14.0-18.0) L 03/12/23 04:23 Hct 37.4 % (42.0-52.0) L 03/12/23 04:23 MCV 88.6 fL (80.0-94.0) 03/12/23 04:23 MCH 29.9 pg (27.0-31.0) 03/12/23 04:23 MCHC 33.7 g/dL (32.0-36.0) 03/12/23 04: RDW 12.8 % (12.0-15.0) 03/12/23 04:23 Plt Count 309 10^3/uL (130-450) 03/12/23 04: MPV 9.6 fL (7.4-11.4) 03/12/23 04:23 Neut # (Auto) 4.1 10^3/uL (1.5-6.6) 03/05/23 05:20 Lymph # (Auto) 2.8 10^3/uL (1.5-3.5) 03/05/23 05:20 [place] # (Auto) 0.6 10^3/uL (0.0-1.0) 03/05/23 05:20 Eos # (Auto) 0.3 10^3/uL (0.0-0.7) 03/05/23 05:20 Baso # (Auto) 0.0 10^3/uL (0.0-0.1) 03/05/23 05:20 Absolute Nucleated RBC 0.00 x10^3/uL 03/05/23 05:20 Total Counted 100 02/14/23 03:15 Band Neuts % (Manual) 9 % (0-10) 02/14/23 03:15 Abnorm Lymph % (Manual) 0 % 02/14/23 03:15 Nucleated RBC % 0.0 /100WBC 03/05/23 05:20 Neutrophils # (Manual) 18.2 10^3/uL (1.5-6.6) H 02/14/23 03:15 Lymphocytes # (Manual) 1.0 10^3/uL (1.5-3.5) L 02/14/23 03:15 Monocytes # (Manual) 1.2 10^3/uL (0.0-1.0) H 02/14/23 03:15 Eosinophils # (Manual) 0.0 10^3/uL (0-0.7) 02/14/23 03:15 Basophils # (Manual) 0.0 10^3/uL (0-0.1) 02/14/23 03:15 Differential Comment MANUAL DIFFERENTIAL 02/14/23 03:15 Sodium 137 mmol/L (135-145) 03/12/23 04:23 Potassium 3.9 mmol/L (3.5-5.0) 03/12/23 04:23 Chloride 102 mmol/L (101-111) 03/12/23 04:23 Carbon Dioxide 27 mmol/L (21-32) 03/12/23 04:23 Anion Gap 8.0 (6-13) 03/12/23 04:23 BUN 29 mg/dL (6-20) H 03/12/23 04:23 Creatinine 1.3 mg/dL (0.6-1.2) H 03/12/23 04:23 Estimated GFR (MDRD) 57 (>89) L 03/12/23 04:23 Glucose 106 mg/dL (70-100) H 03/12/23 04:23 POC Whole Bld Glucose 103 mg/dL (70 - 100) H 03/14/23 07:38 Estimat Average Glucose 134 mg/dL (70-100) H 02/15/23 05:20 Hemoglobin A1c % 6.3 % (4.27-6.07) H 02/15/23 05:20 Calcium 9.5 mg/dL (8.5-10.3) 03/12/23 04:23 Magnesium 1.5 mg/dL (1.7-2.8) L 02/17/23 05:35 Total Bilirubin 0.3 mg/dL (0.2-1.0) 03/03/23 04:48 AST 25 IU/L (10-42) 03/03/23 04:48 ALT 33 IU/L (10-60) 03/03/23 04:48 Alkaline Phosphatase 77 IU/L (42-121) 03/03/23 04:48 Total Creatine Kinase 440 IU/L (22-269) H 02/23/23 14:10 CK-MB (CK-2) 265.9 ng/mL (0.6-6.3) H 02/14/23 03:15 Total Protein 7.2 g/dL (6.7-8.2) 03/03/23 04:48 Albumin 4.0 g/dL (3.2-5.5) 03/03/23 04:48 Globulin 3.2 g/dL (2.1-4.2) 03/03/23 04:48 Albumin/Globulin Ratio 1.3 (1.0-2.2) 03/03/23 04:48 Lipase 34 U/L (22-51) 02/14/23 03:15 TSH 1.21 uIU/mL (0.34-5.60) 02/14/23 03:15 Urine Color YELLOW 02/18/23 15:10 Urine Clarity CLEAR (CLEAR) 02/18/23 15:10 Urine pH 5.5 PH (5.0-7.5) 02/18/23 15:10 Ur Specific [place] 1.020 (1.002-1.030) 02/18/23 15:10 Urine Protein NEGATIVE mg/dL (NEGATIVE) 02/18/23 15:10 Urine Glucose (UA) NEGATIVE mg/dL (NEGATIVE) 02/18/23 15:10 Urine Ketones NEGATIVE mg/dL (NEGATIVE) 02/18/23 15:10 Urine Occult Blood MODERATE (NEGATIVE) H 02/18/23 15:10 Urine Nitrite NEGATIVE (NEGATIVE) 02/18/23 15:10 Urine Bilirubin NEGATIVE (NEGATIVE) 02/18/23 15:10 Urine Urobilinogen 0.2 (NORMAL) E.U./dL (NORMAL) 02/18/23 15:10 Ur Leukocyte Esterase TRACE (NEGATIVE) H 02/18/23 15:10 Urine RBC 11-25 /HPF (0-5) H 02/18/23 15:10 Urine WBC 6-10 /HPF (0-3) H 02/18/23 15:10 Ur Squamous Epith Cells RARE Squamous (<= Few) 02/18/23 15:10 Urine Bacteria None Seen /HPF (None Seen) 02/18/23 15:10 Urine Sperm PRESENT 02/18/23 15:10 Ur Microscopic Review INDICATED 02/14/23 10:34 Urine Culture Comments INDICATED 02/18/23 15:10 Urine Opiates Screen NEGATIVE (NEGATIVE) 02/14/23 10:34 Ur Oxycodone Screen NEGATIVE (NEGATIVE) 02/14/23 10:34 Urine Methadone Screen NEGATIVE (NEGATIVE) 02/14/23 10:34 Ur Propoxyphene Screen NEGATIVE (NEGATIVE) 02/14/23 10:34 Ur Barbiturates Screen NEGATIVE (NEGATIVE) 02/14/23 10:34 Ur Tricyclics Screen NEGATIVE (NEGATIVE) 02/14/23 10:34 Ur Phencyclidine Scrn NEGATIVE (NEGATIVE) 02/14/23 10:34 Ur Amphetamine Screen NEGATIVE (NEGATIVE) 02/14/23 10:34 U Methamphetamines Scrn NEGATIVE (NEGATIVE) 02/14/23 10:34 U Benzodiazepines Scrn NEGATIVE (NEGATIVE) 02/14/23 10:34 Urine Cocaine Screen NEGATIVE (NEGATIVE) 02/14/23 10:34 U Cannabinoids Screen POSITIVE (NEGATIVE) H 02/14/23 10:34 Ethyl Alcohol < 5.0 mg/dL 02/14/23 03:15
[2023-04-01] MEDS: MULTIVITAMIN W/MINERALS TABLET PO SCH (07:54)
[2023-04-01] MEDS: MAGNESIUM OXIDE 400 MG TABLET PO SCH (07:54)
[2023-04-01] MEDS: metFORMIN 500 MG TABLET PO SCH ×2 (07:55→17:16)
[2023-04-01] MEDS: ACETAMINOPHEN 325 MG TABLET PO PRN (08:03)
[2023-04-01] MEDS: LORazepam 0.5 MG TABLET SL SCH ×2 (08:03→20:37)
[2023-04-01] MEDS: DULoxetine 30 MG CAPSULE PO SCH (08:04)
[2023-04-01] MEDS: OLANZapine ODT 5 MG TABLET TL SCH ×2 (08:04→20:37)
[2023-04-01] MEDS: DOCUSATE SODIUM 250 MG CAPSULE PO SCH ×2 (08:04→20:37)
[2023-04-01] MEDS: SENNA 8.6 MG TABLET PO SCH ×2 (08:04→20:37)
[2023-04-01] MEDS: ASPIRIN EC 81 MG TABLET PO SCH (08:04)
[2023-04-01] MEDS: polyethylene glycoL 3350 17 GM PACKET PO SCH (09:00)
[2023-04-01] MEDS: FLUTICASONE NASAL SPRAY NAS SCH (09:02)
--- NOTE | 2023-04-01 11:09 | PROVIDER PROGRESS NOTE ---
Assessment/Plan - Problem List (1) Major depressive disorder, recurrent, severe with psychotic symptoms Assessment/Plan: He was admitted with multiple falls. Increasing psychosis. To the point he became catatonic. He has now been here over 35 days. There has been remarkable and positive improvement. Most of the change came from resuming his Risperdal 3 mg twice daily, and adding a benzodiazepine for the catatonia. His psychiatrist let us know that they have been working on permanent placement for him. Its been slow going. He was living with his girlfriend/caregiver. Caregiver burden has been too difficult for her recently. We now have DPOA with his daughter. Daughter is amenable to having him placed. At this time we are awaiting for an adult family home to finalize all the paperwork. Social work, case management are working to get the details together. On 03/21, I sat with the patient to discuss his wishes and to complete a POLST form, which was accomplished. Otherwise there is no new information for this patient. No orders written today All of his problems have been resolved or stable for weeks as we wait for placement. (2) No able caregiver in household Assessment/Plan: He was living with his girlfriend/caregiver. Caregiver burden has been too difficult for her recently, and she had to leave him unaccompanied at night, when she worked. Plan: Permanent placement is being worked on by our social media community manager, working with his daughter who is now the DPOA. There is a retirement that will likely take him, and that will probably be next week per SW. (3) Chronic psychosis still present. He is still hallucinating at times. But much more controllable. (4) Chronic kidney disease. Acute kidney injury has resolved in the face of rhabdomyolysis and many falls. His creat of 1.3-1.4 is his new baseline. Patient has been at baseline since approximately February 19. He has no longer needed IV fluids. (5) Type 2 diabetes mellitus, controlled. A1c was 6.3%. He is eating 100% of his meals. Metformin resumed February 22. Glucose is controlled. We stopped fingerstick checks at [facility] many days ago. (6) Rectal fissures or abrasions. Part of his psychosis is that aliens or Indians are shoving things in his rectum. He would use his fingers to manually disimpact himself. He gave himself the rectal cuts. He still says that those things that are tucked into his rectum and sometimes speak to him. But he is having less and less agitation with this. (7) Falls at home. Unclear why he kept on falling. He was not intoxicated. No seizures, no syncope. No orthostasis. Not under the influence of any recreational substance, however we suspect he got Suboxone patch haphazardly. His last prescription was written a year ago and it was ordered for 13 weeks. However there were still several patches available in a box that his caregiver brought from home. so we suspect he was intermittently oversedated on his buprenorphine patch, so we stopped the patch entirely and he has had no pain complaints. Here he is now walking with a walker and does so on a regular basis. He did have 1 fall in the hospital where he was leaning forward and he started going toward the floor and the nurse pushed him back. (8) Abrasions of multiple sites due to frequent falls. Photographs taken by nursing. These have all healed. (9) Poor hygiene on admission. He is taking showers here on a more regular basis. (10) Abnormal EKG. Echo was done to make sure he did not have cor pulmonale and Echo was normal. (11) Left arm swelling. Duplex Doppler - February 18 ws neg (12) Right third toe infection. Resolved. Completed Keflex February 28. (13) Rhabdomyolysis This was from the falls and has resolved. (14) Catatonia has resolved after restarting Risperdal 3 mg twice daily, and adding a Benzodiazepine. - Current Meds Current Meds: Current Medications Generic Name Dose Route Start Last Admin Trade Name Jyoti PRN Reason Stop Dose Admin Acetaminophen 650 mg 02/15/23 19:57 04/01/23 08:03 Acetaminophen 325 Mg Tablet PO 650 mg Q4HR PRN Administration Pain or Fever > 38C (100.4F) Aspirin 81 mg 02/18/23 09:00 04/01/23 08:04 Aspirin Ec 81 Mg Tablet PO 81 mg DAILY ANGELA Administration Docusate Sodium 250 - 500 mg 02/26/23 17:00 04/01/23 08:04 Docusate Sodium 250 Mg Capsule PO 250 mg BID ANGELA Administration Duloxetine HCl 30 mg 02/15/23 13:30 04/01/23 08:04 Duloxetine 30 Mg Capsule PO 30 mg DAILY ANGELA Administration Fluticasone Propionate 1 sprays 02/17/23 09:00 03/31/23 09:04 Fluticasone Nasal [place] CRISTIAN 1 spray DAILY ANGELA Administration Haloperidol 2 mg 02/22/23 13:06 02/26/23 14:41 Haloperidol 5 Mg/Ml Vial IM 2 mg DAILY PRN Administration Agitation Ibuprofen 600 mg 02/15/23 19:57 03/03/23 20:57 Ibuprofen 600 Mg Tablet PO 600 mg Q6HR PRN Administration MINOR PAIN Lidocaine HCl 1 ml 02/23/23 13:54 02/26/23 13:59 Lidocaine Jelly 2% 6 Ml Jel.Pf.Shanda TOP 1 ml TID PRN Administration anal itching pain Lorazepam 0.5 mg 02/21/23 21:00 04/01/23 08:03 Lorazepam 0.5 Mg Tablet SL 0.5 mg BID ANGELA Administration Magnesium Oxide 400 mg 02/16/23 08:00 04/01/23 07:54 Magnesium Oxide 400 Mg Tablet PO 400 mg DAILYWM ANGELA Administration Metformin HCl 1,000 mg 03/17/23 17:00 04/01/23 07:55 Metformin 500 Mg Tablet PO 1,000 mg 0800,1700 ANGELA Administration Multivitamins/Minerals 1 tab 02/18/23 09:00 04/01/23 07:54 Multivitamin W/Minerals Tablet PO 1 tab DAILYWM ANGELA Administration Olanzapine 5 mg 02/23/23 21:00 04/01/23 08:04 Olanzapine Odt 5 Mg Tablet TL 5 mg BID ANGELA Administration Polyethylene Glycol 17 gm 02/17/23 18:00 03/31/23 09:03 Polyethylene Glycol 3350 17 Gm Packet PO Not Given DAILY ANGELA Senna 8.6 - 17.2 mg 02/26/23 17:00 04/01/23 08:04 Senna 8.6 Mg Tablet PO 8.6 mg BID ANGELA Administration - Lab Result Fish Bone Diagrams: 03/12/23 04:23 03/12/23 04:23 Subjective - Subjective Patient Reports: No Complaints Objective Vital Signs: Vital Signs - 24 hr 04/01/23 07:58 Temperature 36.7 C Heart Rate [ 57 L Brachial] Respiratory 18 Rate Blood Pressure 123/69 [Right Brachial artery] O2 Saturation 98 Oxygen O2 Source Room air I&O (Last 24 Hrs): Intake and Output Totals x24h 03/30/23 03/31/23 04/01/23 23:59 23:59 23:59 Intake Total 1939 1803 720 Balance 1939 1803 720 General: Alert, No acute distress HEENT: Mucous membr. moist/pink Neuro: Alert Cardiovascular: Regular rate Respiratory: No respiratory distress Extremities: No clubbing, No edema - Results Results: Laboratory Results WBC 10.0 x10^3/uL (4.8-10.8) 03/12/23 04:23 RBC 4.22 10^6/uL (4.70-6.10) L 03/12/23 04: Hgb 12.6 g/dL (14.0-18.0) L 03/12/23 04: Hct 37.4 % (42.0-52.0) L 03/12/23 04:23 MCV 88.6 fL (80.0-94.0) 03/12/23 04: MCH 29.9 pg (27.0-31.0) 03/12/23 04: MCHC 33.7 g/dL (32.0-36.0) 03/12/23 04: RDW 12.8 % (12.0-15.0) 03/12/23 04: Plt Count 309 10^3/uL (130-450) 03/12/23 04:23 MPV 9.6 fL (7.4-11.4) 03/12/23 04:23 Neut # (Auto) 4.1 10^3/uL (1.5-6.6) 03/05/23 05:20 Lymph # (Auto) 2.8 10^3/uL (1.5-3.5) 03/05/23 05:20 [place] # (Auto) 0.6 10^3/uL (0.0-1.0) 03/05/23 05:20 Eos # (Auto) 0.3 10^3/uL (0.0-0.7) 03/05/23 05:20 Baso # (Auto) 0.0 10^3/uL (0.0-0.1) 03/05/23 05:20 Absolute Nucleated RBC 0.00 x10^3/uL 03/05/23 05:20 Total Counted 100 02/14/23 03:15 Band Neuts % (Manual) 9 % (0-10) 02/14/23 03:15 Abnorm Lymph % (Manual) 0 % 02/14/23 03:15 Nucleated RBC % 0.0 /100WBC 03/05/23 05:20 Neutrophils # (Manual) 18.2 10^3/uL (1.5-6.6) H 02/14/23 03:15 Lymphocytes # (Manual) 1.0 10^3/uL (1.5-3.5) L 02/14/23 03:15 Monocytes # (Manual) 1.2 10^3/uL (0.0-1.0) H 02/14/23 03:15 Eosinophils # (Manual) 0.0 10^3/uL (0-0.7) 02/14/23 03:15 Basophils # (Manual) 0.0 10^3/uL (0-0.1) 02/14/23 03:15 Differential Comment MANUAL DIFFERENTIAL 02/14/23 03:15 Sodium 137 mmol/L (135-145) 03/12/23 04:23 Potassium 3.9 mmol/L (3.5-5.0) 03/12/23 04:23 Chloride 102 mmol/L (101-111) 03/12/23 04:23 Carbon Dioxide 27 mmol/L (21-32) 03/12/23 04:23 Anion Gap 8.0 (6-13) 03/12/23 04:23 BUN 29 mg/dL (6-20) H 03/12/23 04:23 Creatinine 1.3 mg/dL (0.6-1.2) H 03/12/23 04:23 Estimated GFR (MDRD) 57 (>89) L 03/12/23 04:23 Glucose 106 mg/dL (70-100) H 03/12/23 04:23 POC Whole Bld Glucose 103 mg/dL (70 - 100) H 03/14/23 07:38 Estimat Average Glucose 134 mg/dL (70-100) H 02/15/23 05:20 Hemoglobin A1c % 6.3 % (4.27-6.07) H 02/15/23 05:20 Calcium 9.5 mg/dL (8.5-10.3) 03/12/23 04:23 Magnesium 1.5 mg/dL (1.7-2.8) L 02/17/23 05:35 Total Bilirubin 0.3 mg/dL (0.2-1.0) 03/03/23 04:48 AST 25 IU/L (10-42) 03/03/23 04:48 ALT 33 IU/L (10-60) 03/03/23 04:48 Alkaline Phosphatase 77 IU/L (42-121) 03/03/23 04:48 Total Creatine Kinase 440 IU/L (22-269) H 02/23/23 14:10 CK-MB (CK-2) 265.9 ng/mL (0.6-6.3) H 02/14/23 03:15 Total Protein 7.2 g/dL (6.7-8.2) 03/03/23 04:48 Albumin 4.0 g/dL (3.2-5.5) 03/03/23 04:48 Globulin 3.2 g/dL (2.1-4.2) 03/03/23 04:48 Albumin/Globulin Ratio 1.3 (1.0-2.2) 03/03/23 04:48 Lipase 34 U/L (22-51) 02/14/23 03:15 TSH 1.21 uIU/mL (0.34-5.60) 02/14/23 03:15 Urine Color YELLOW 02/18/23 15:10 Urine Clarity CLEAR (CLEAR) 02/18/23 15:10 Urine pH 5.5 PH (5.0-7.5) 02/18/23 15:10 Ur Specific [place] 1.020 (1.002-1.030) 02/18/23 15:10 Urine Protein NEGATIVE mg/dL (NEGATIVE) 02/18/23 15:10 Urine Glucose (UA) NEGATIVE mg/dL (NEGATIVE) 02/18/23 15:10 Urine Ketones NEGATIVE mg/dL (NEGATIVE) 02/18/23 15:10 Urine Occult Blood MODERATE (NEGATIVE) H 02/18/23 15:10 Urine Nitrite NEGATIVE (NEGATIVE) 02/18/23 15:10 Urine Bilirubin NEGATIVE (NEGATIVE) 02/18/23 15:10 Urine Urobilinogen 0.2 (NORMAL) E.U./dL (NORMAL) 02/18/23 15:10 Ur Leukocyte Esterase TRACE (NEGATIVE) H 02/18/23 15:10 Urine RBC 11-25 /HPF (0-5) H 02/18/23 15:10 Urine WBC 6-10 /HPF (0-3) H 02/18/23 15:10 Ur Squamous Epith Cells RARE Squamous (<= Few) 02/18/23 15:10 Urine Bacteria None Seen /HPF (None Seen) 02/18/23 15:10 Urine Sperm PRESENT 02/18/23 15:10 Ur Microscopic Review INDICATED 02/14/23 10:34 Urine Culture Comments INDICATED 02/18/23 15:10 Urine Opiates Screen NEGATIVE (NEGATIVE) 02/14/23 10:34 Ur Oxycodone Screen NEGATIVE (NEGATIVE) 02/14/23 10:34 Urine Methadone Screen NEGATIVE (NEGATIVE) 02/14/23 10:34 Ur Propoxyphene Screen NEGATIVE (NEGATIVE) 02/14/23 10:34 Ur Barbiturates Screen NEGATIVE (NEGATIVE) 02/14/23 10:34 Ur Tricyclics Screen NEGATIVE (NEGATIVE) 02/14/23 10:34 Ur Phencyclidine Scrn NEGATIVE (NEGATIVE) 02/14/23 10:34 Ur Amphetamine Screen NEGATIVE (NEGATIVE) 02/14/23 10:34 U Methamphetamines Scrn NEGATIVE (NEGATIVE) 02/14/23 10:34 U Benzodiazepines Scrn NEGATIVE (NEGATIVE) 02/14/23 10:34 Urine Cocaine Screen NEGATIVE (NEGATIVE) 02/14/23 10:34 U Cannabinoids Screen POSITIVE (NEGATIVE) H 02/14/23 10:34 Ethyl Alcohol < 5.0 mg/dL 02/14/23 03:15
--- NOTE | 2023-04-02 08:09 | PROVIDER PROGRESS NOTE ---
Subjective - Prog Note Date Prog Note Date: 04/02/23 Prog Note Time: 08:02 - Subjective Pt reports feeling: Improved Subjective: he has no complaints, walking the simpson regularly, eating well. Keeps asking when is he leaving. Current Medications - Current Medications Current Medications: Active Medications Acetaminophen (Acetaminophen 325 Mg Tablet) 650 mg PO Q4HR PRN PRN Reason: Pain or Fever > 38C (100.4F) Last Admin: 04/01/23 08:03 Dose: 650 mg Aspirin (Aspirin Ec 81 Mg Tablet) 81 mg PO DAILY [facility] Last Admin: 04/01/23 08:04 Dose: 81 mg Docusate Sodium (Docusate Sodium 250 Mg Capsule) 250 - 500 mg PO BID [facility] Last Admin: 04/02/23 08:16 Dose: 250 mg Duloxetine HCl (Duloxetine 30 Mg Capsule) 30 mg PO DAILY [facility] Last Admin: 04/02/23 08:16 Dose: 30 mg Fluticasone Propionate (Fluticasone Nasal [place]) 1 sprays CRISTIAN DAILY [facility] Last Admin: 04/01/23 09:02 Dose: 1 spray Haloperidol (Haloperidol 5 Mg/Ml Vial) 2 mg IM DAILY PRN PRN Reason: Agitation Last Admin: 02/26/23 14:41 Dose: 2 mg Hydrocortisone (Hydrocortisone 1% Cream 28 Gm Tube) 1 applic TOP TID PRN PRN Reason: ITCHING Ibuprofen (Ibuprofen 600 Mg Tablet) 600 mg PO Q6HR PRN PRN Reason: MINOR PAIN Last Admin: 03/03/23 20:57 Dose: 600 mg Lidocaine HCl (Lidocaine Jelly 2% 6 Ml Jel.Pf.Shanda) 1 ml TOP TID PRN PRN Reason: anal itching pain Last Admin: 02/26/23 13:59 Dose: 1 ml Lorazepam (Lorazepam 0.5 Mg Tablet) 0.5 mg SL BID [facility] Last Admin: 04/02/23 08:17 Dose: 0.5 mg Magnesium Oxide (Magnesium Oxide 400 Mg Tablet) 400 mg PO DAILYWM [facility] Last Admin: 04/02/23 08:17 Dose: 400 mg Metformin HCl (Metformin 500 Mg Tablet) 1,000 mg PO 0800,1700 [facility] Last Admin: 04/02/23 08:16 Dose: 1,000 mg Multivitamins/Minerals (Multivitamin W/Minerals Tablet) 1 tab PO DAILYWM [facility] Last Admin: 04/02/23 08:16 Dose: 1 tab Olanzapine (Olanzapine Odt 5 Mg Tablet) 5 mg TL BID [facility] Last Admin: 04/02/23 08:17 Dose: 5 mg Ondansetron HCl (Ondansetron 4 Mg/2 Ml Vial) 4 mg IVP Q6HR PRN PRN Reason: Nausea / Vomiting Polyethylene Glycol (Polyethylene Glycol 3350 17 Gm Packet) 17 gm PO DAILY [facility] Last Admin: 04/02/23 08:17 Dose: Not Given Senna (Senna 8.6 Mg Tablet) 8.6 - 17.2 mg PO BID [facility] Last Admin: 04/02/23 08:16 Dose: 8.6 mg metFORMIN [Glucophage] 1,000 mg PO BIDWM 08/29/20 Aspirin [Aspirin EC] 81 mg PO DAILY 12/20/22 Atorvastatin Calcium [Lipitor] 80 mg PO HS 12/20/22 DULoxetine [Cymbalta] 60 mg PO DAILY 12/20/22 Fluticasone [Flonase] 1 sprays CRISTIAN DAILY 12/20/22 Gabapentin [Neurontin] 600 mg PO TID 12/20/22 risperiDONE [Risperdal] 3 mg PO BID 12/20/22 Buprenorphine 1 each TD Q7D PRN 12/21/22 Objective - Vital Signs/Intake & Output Reviewed Vital Signs: Yes Intake & Output: Intake & Output 03/30/23 03/31/23 04/01/23 04/02/23 23:59 23:59 23:59 23:59 Intake Total 1939 1804 1380 Balance 1939 1804 1380 - Objective General Appearance: positive: Alert, Other (pale, fatigued appearing, flat affect, walking in hallway) Eyes Bilateral: positive: PERRL, EOMI ENT: positive: No signs of dehydration Neck: positive: No JVD. negative: Stiff neck Respiratory: positive: No respiratory distress. negative: Wheezes, Rales, Rhonchi Cardiovascular: positive: Regular rate & rhythm. negative: Tachycardia Abdomen: positive: Non-tender, No organomegaly, Nml bowel sounds, No distention Skin: positive: Warm, Dry, Pallor Extremities: positive: Full ROM, No pedal edema Neurologic/Psychiatric: positive: Oriented x3, CN's nml (2-12), Motor nml. negative: Mood/affect nml (flat, monotonic) - Lab Results Fish Bones: 03/12/23 04:23 03/12/23 04:23 Assessment/Plan - Problem List (1) Major depressive disorder, recurrent, severe with psychotic symptoms Impression: He was admitted with multiple falls. Increasing psychosis. To the point he became catatonic. He has now been here 48 days. There has been remarkable and positive improvement. Most of the change came from resuming his Risperdal 3 mg twice daily, and adding a benzodiazepine for the catatonia. His psychiatrist let us know that they have been working on permanent placement for him. Its been slow going. He was living with his girlfriend/caregiver. Caregiver burden has been too difficult for her recently. We now have DPOA with his daughter. Daughter is amenable to having him placed. At this time we are awaiting for an adult family home to finalize all the paperwork. Social work, case management are working to get the details together. On 03/21, I sat with the patient to discuss his wishes and to complete a POLST form, which was accomplished. Otherwise there is no new information for this patient. No orders written today He has been accepted at a prison. For the last 2 to 3 weeks it has been negotiation between home and community services Case management and the prison about what the prison will be paid. All of his problems have been resolved or stable for weeks as we wait for placement. (2) No able caregiver in household Assessment/Plan: He was living with his girlfriend/caregiver. Caregiver burden has been too difficult for her recently, and she had to leave him unaccompanied at night, when she worked. Plan: Permanent placement is being worked on by our dialysis social worker, working with his daughter who is now the DPOA. There is a prison that will likely take him, and that will probably be next week per . (3) Chronic psychosis still present. He is still hallucinating at times. But much more controllable. (4) Chronic kidney disease. Acute kidney injury has resolved in the face of rhabdomyolysis and many falls. His creat of 1.3-1.4 is his new baseline. Patient has been at baseline since approximately February 19. He has no longer needed IV fluids. (5) Type 2 diabetes mellitus, controlled. A1c was 6.3%. He is eating 100% of his meals. Metformin resumed February 22. Glucose is controlled. We stopped fingerstick checks at [facility] many days ago. (6) Rectal fissures or abrasions. Part of his psychosis is that aliens or Indians are shoving things in his rectum. He would use his fingers to manually disimpact himself. He gave himself the rectal cuts. He still says that those things that are tucked into his rectum and sometimes speak to him. But he is having less and less agitation with this. (7) Falls at home. Unclear why he kept on falling. He was not intoxicated. No seizures, no syncope. No orthostasis. Not under the influence of any recreational substance, however we suspect he got Suboxone patch haphazardly. His last prescription was written a year ago and it was ordered for 13 weeks. However there were still several patches available in a box that his caregiver brought from home. so we suspect he was intermittently oversedated on his buprenorphine patch, so we stopped the patch entirely and he has had no pain complaints. Here he is now walking with a walker and does so on a regular basis. He did have 1 fall in the hospital where he was leaning forward and he started going toward the floor and the nurse pushed him back. (8) Abrasions of multiple sites due to frequent falls. Photographs taken by nursing. These have all healed. (9) Poor hygiene on admission. He is taking showers here on a more regular basis. (10) Abnormal EKG. Echo was done to make sure he did not have cor pulmonale and Echo was normal. (11) Left arm swelling. Duplex Doppler - February 18 ws neg (12) Right third toe infection. Resolved. Completed Keflex February 28. (13) Rhabdomyolysis This was from the falls and has resolved. (14) Catatonia has resolved after restarting Risperdal 3 mg twice daily, and adding a Benzodiazepine.
[2023-04-02] MEDS: DULoxetine 30 MG CAPSULE PO SCH (08:16)
[2023-04-02] MEDS: MULTIVITAMIN W/MINERALS TABLET PO SCH (08:16)
[2023-04-02] MEDS: SENNA 8.6 MG TABLET PO SCH ×2 (08:16→20:52)
[2023-04-02] MEDS: metFORMIN 500 MG TABLET PO SCH ×2 (08:16→17:17)
[2023-04-02] MEDS: DOCUSATE SODIUM 250 MG CAPSULE PO SCH ×2 (08:16→20:52)
[2023-04-02] MEDS: OLANZapine ODT 5 MG TABLET TL SCH ×2 (08:17→20:52)
[2023-04-02] MEDS: ASPIRIN EC 81 MG TABLET PO SCH (08:17)
[2023-04-02] MEDS: MAGNESIUM OXIDE 400 MG TABLET PO SCH (08:17)
[2023-04-02] MEDS: LORazepam 0.5 MG TABLET SL SCH ×2 (08:17→20:52)
[2023-04-02] MEDS: polyethylene glycoL 3350 17 GM PACKET PO SCH (08:17)
[2023-04-02] MEDS: FLUTICASONE NASAL SPRAY NAS SCH (08:20)
[2023-04-02] MEDS: ACETAMINOPHEN 325 MG TABLET PO PRN (12:40)
[2023-04-03] MEDS: metFORMIN 500 MG TABLET PO SCH ×2 (07:58→16:36)
[2023-04-03] MEDS: MAGNESIUM OXIDE 400 MG TABLET PO SCH (07:58)
[2023-04-03] MEDS: MULTIVITAMIN W/MINERALS TABLET PO SCH (07:58)
[2023-04-03] MEDS: polyethylene glycoL 3350 17 GM PACKET PO SCH (07:59)
[2023-04-03] MEDS: ASPIRIN EC 81 MG TABLET PO SCH (08:05)
[2023-04-03] MEDS: OLANZapine ODT 5 MG TABLET TL SCH ×2 (08:05→20:23)
[2023-04-03] MEDS: DOCUSATE SODIUM 250 MG CAPSULE PO SCH ×2 (08:05→20:23)
[2023-04-03] MEDS: ACETAMINOPHEN 325 MG TABLET PO PRN (08:05)
[2023-04-03] MEDS: SENNA 8.6 MG TABLET PO SCH ×2 (08:05→20:23)
[2023-04-03] MEDS: FLUTICASONE NASAL SPRAY NAS SCH (08:06)
[2023-04-03] MEDS: DULoxetine 30 MG CAPSULE PO SCH (08:06)
[2023-04-03] MEDS: LORazepam 0.5 MG TABLET SL SCH ×2 (08:06→20:23)
--- NOTE | 2023-04-03 12:39 | PROVIDER PROGRESS NOTE ---
Subjective - Prog Note Date Prog Note Date: 04/03/23 Prog Note Time: 12:37 - Subjective Subjective: The intermediate could no longer wait for this patient to arrive. So they filled his slot. We are starting to have to start from scratch to get him a new intermediate. He received the news. He is sad. He really wanted to leave. He is confused about why all of this is happening. He is taking it personally and says "they do not want me because I did something wrong". I have reassured him that it is nothing he did. It is just the system not working well for him. Current Medications - Current Medications Current Medications: Active Medications Acetaminophen (Acetaminophen 325 Mg Tablet) 650 mg PO Q4HR PRN PRN Reason: Pain or Fever > 38C (100.4F) Last Admin: 04/03/23 08:05 Dose: 650 mg Aspirin (Aspirin Ec 81 Mg Tablet) 81 mg PO DAILY [facility] Last Admin: 04/03/23 08:05 Dose: 81 mg Docusate Sodium (Docusate Sodium 250 Mg Capsule) 250 - 500 mg PO BID [facility] Last Admin: 04/03/23 08:05 Dose: 500 mg Duloxetine HCl (Duloxetine 30 Mg Capsule) 30 mg PO DAILY [facility] Last Admin: 04/03/23 08:06 Dose: 30 mg Fluticasone Propionate (Fluticasone Nasal [place]) 1 sprays CRISTIAN DAILY [facility] Last Admin: 04/03/23 08:06 Dose: 1 spray Haloperidol (Haloperidol 5 Mg/Ml Vial) 2 mg IM DAILY PRN PRN Reason: Agitation Last Admin: 02/26/23 14:41 Dose: 2 mg Hydrocortisone (Hydrocortisone 1% Cream 28 Gm Tube) 1 applic TOP TID PRN PRN Reason: ITCHING Ibuprofen (Ibuprofen 600 Mg Tablet) 600 mg PO Q6HR PRN PRN Reason: MINOR PAIN Last Admin: 03/03/23 20:57 Dose: 600 mg Lidocaine HCl (Lidocaine Jelly 2% 6 Ml Jel.Pf.Shanda) 1 ml TOP TID PRN PRN Reason: anal itching pain Last Admin: 02/26/23 13:59 Dose: 1 ml Lorazepam (Lorazepam 0.5 Mg Tablet) 0.5 mg SL BID [facility] Last Admin: 04/03/23 08:06 Dose: 0.5 mg Magnesium Oxide (Magnesium Oxide 400 Mg Tablet) 400 mg PO DAILYWM [facility] Last Admin: 04/03/23 07:58 Dose: 400 mg Metformin HCl (Metformin 500 Mg Tablet) 1,000 mg PO 0800,1700 [facility] Last Admin: 04/03/23 07:58 Dose: 1,000 mg Multivitamins/Minerals (Multivitamin W/Minerals Tablet) 1 tab PO DAILYWM [facility] Last Admin: 04/03/23 07:58 Dose: 1 tab Olanzapine (Olanzapine Odt 5 Mg Tablet) 5 mg TL BID [facility] Last Admin: 04/03/23 08:05 Dose: 5 mg Ondansetron HCl (Ondansetron 4 Mg/2 Ml Vial) 4 mg IVP Q6HR PRN PRN Reason: Nausea / Vomiting Polyethylene Glycol (Polyethylene Glycol 3350 17 Gm Packet) 17 gm PO DAILY [facility] Last Admin: 04/03/23 07:59 Dose: Not Given Senna (Senna 8.6 Mg Tablet) 8.6 - 17.2 mg PO BID [facility] Last Admin: 04/03/23 08:05 Dose: 17.2 mg metFORMIN [Glucophage] 1,000 mg PO BIDWM 08/29/20 Aspirin [Aspirin EC] 81 mg PO DAILY 12/20/22 Atorvastatin Calcium [Lipitor] 80 mg PO HS 12/20/22 DULoxetine [Cymbalta] 60 mg PO DAILY 12/20/22 Fluticasone [Flonase] 1 sprays CRISTIAN DAILY 12/20/22 Gabapentin [Neurontin] 600 mg PO TID 12/20/22 risperiDONE [Risperdal] 3 mg PO BID 12/20/22 Buprenorphine 1 each TD Q7D PRN 12/21/22 Objective - Vital Signs/Intake & Output Reviewed Vital Signs: Yes Vital Signs: Vital Signs x48h Temp Pulse Resp BP Pulse Ox 04/03/23 07:59 36.8 C 58 L 14 99/53 L 96 Intake & Output: Intake & Output 03/31/23 04/01/23 04/02/23 04/03/23 23:59 23:59 23:59 23:59 Intake Total 1804 1380 1412 240 Balance 1804 1380 1412 240 - Objective General Appearance: positive: Alert (With some body odor today), Other (Middle- aged white male, bearded, food in his gilliam, lips are little dry, walking the hallways) Eyes Bilateral: positive: PERRL, EOMI ENT: positive: Dry mucous membranes Neck: positive: No JVD. negative: Stiff neck Respiratory: positive: No respiratory distress. negative: Wheezes, Rales, Rh onchi Cardiovascular: positive: Regular rate & rhythm Abdomen: positive: Non-tender, No organomegaly, Nml bowel sounds, No distention Skin: positive: Warm, Dry, Other (Food and is beer, dried cracked lips) Extremities: positive: Full ROM. negative: No pedal edema, Pedal edema, Calf tenderness Neurologic/Psychiatric: positive: Oriented x3, CN's nml (2-12), Motor nml - Lab Results Fish Bones: 03/12/23 04:23 03/12/23 04:23 ABX Reporting Has patient been on IV antibiotics over the past 48 hours?: No Assessment/Plan - Problem List (1) Major depressive disorder, recurrent, severe with psychotic symptoms Impression: He was admitted with multiple falls. Increasing psychosis. To the point he became catatonic. He has now been here 48 days. There has been remarkable and positive improvement. Most of the change came from resuming his Risperdal 3 mg twice daily, and adding a benzodiazepine for the catatonia. His psychiatrist let us know that they have been working on permanent placement for him. Its be en slow going. He was living with his girlfriend/caregiver. Caregiver burden has been too difficult for her recently. We now have DPOA with his daughter. Daughter is amenable to having him placed. At this time we are awaiting for an adult family home to finalize all the paperwork. Social work, case management are working to get the details together. On 03/21, I sat with the patient to discuss his wishes and to complete a POLST form, which was accomplished. Otherwise there is no new information for this patient. We are still awaiting placement. I reassured him that he did nothing wrong. I am concerned about the oral mucosa dehydration I saw today. Plan: Await acceptance to a new intermediate. Check BMP. Encouraged him to take a shower today All of his problems have been resolved or stable for weeks as we wait for placement. (2) No able caregiver in household Assessment/Plan: He was living with his girlfriend/caregiver. Caregiver burden has been too difficult for her recently, and she had to leave him unaccompanied at night, when she worked. Plan: Permanent placement is being worked on by our social media sr strategy manager, working with his daughter who is now the DPOA. There is a intermediate that will likely take him, and that will probably be next week per SW. (3) Chronic psychosis still present. He is still hallucinating at times. But much more controllable. (4) Chronic kidney disease. Acute kidney injury has resolved in the face of rhabdomyolysis and many falls. His creat of 1.3-1.4 is his new baseline. Patient has been at baseline since approximately February 19. He has no longer needed IV fluids. (5) Type 2 diabetes mellitus, controlled. A1c was 6.3%. He is eating 100% of his meals. Metformin resumed February 22. Glucose is controlled. We stopped fingerstick checks at [facility] many days ago. (6) Rectal fissures or abrasions. Part of his psychosis is that aliens or Indians are shoving things in his rectum. He would use his fingers to manually disimpact himself. He gave himself the rectal cuts. He still says that those things that are tucked into his rectum and sometimes speak to him. But he is having less and less agitation with this. (7) Falls at home. Unclear why he kept on falling. He was not intoxicated. No seizures, no syncope. No orthostasis. Not under the influence of any recreational substance, however we suspect he got Suboxone patch haphazardly. His last prescription was written a year ago and it was ordered for 13 weeks. However there were still several patches available in a box that his caregiver brought from home. so we suspect he was intermittently oversedated on his buprenorphine patch, so we stopped the patch entirely and he has had no pain complaints. Here he is now walking with a walker and does so on a regular basis. He did have 1 fall in the hospital where he was leaning forward and he started going toward the floor and the nurse pushed him back. (8) Abrasions of multiple sites due to frequent falls. Photographs taken by nursing. These have all healed. (9) Poor hygiene on admission. He is taking showers here on a more regular basis. (10) Abnormal EKG. Echo was done to make sure he did not have cor pulmonale and Echo was normal. (11) Left arm swelling. Duplex Doppler - February 18 ws neg (12) Right third toe infection. Resolved. Completed Keflex February 28. (13) Rhabdomyolysis This was from the falls and has resolved. (14) Catatonia has resolved after restarting Risperdal 3 mg twice daily, and adding a Benzodiazepine.
[2023-04-03 13:31] LABS: CALCIUM 9.6 mg/dL (8.5-10.3); CREATININE 1.4 mg/dL (0.6-1.2); POTASSIUM 4.1 mmol/L (3.5-5.0)
[2023-04-04] MEDS: polyethylene glycoL 3350 17 GM PACKET PO SCH (07:57)
[2023-04-04] MEDS: metFORMIN 500 MG TABLET PO SCH ×2 (07:57→17:00)
[2023-04-04] MEDS: DULoxetine 30 MG CAPSULE PO SCH (07:58)
[2023-04-04] MEDS: MAGNESIUM OXIDE 400 MG TABLET PO SCH (07:58)
[2023-04-04] MEDS: MULTIVITAMIN W/MINERALS TABLET PO SCH (07:58)
[2023-04-04] MEDS: OLANZapine ODT 5 MG TABLET TL SCH ×2 (07:58→21:15)
[2023-04-04] MEDS: FLUTICASONE NASAL SPRAY NAS SCH (07:58)
[2023-04-04] MEDS: DOCUSATE SODIUM 250 MG CAPSULE PO SCH ×2 (07:58→21:15)
[2023-04-04] MEDS: SENNA 8.6 MG TABLET PO SCH ×2 (07:58→21:14)
[2023-04-04] MEDS: ASPIRIN EC 81 MG TABLET PO SCH (07:58)
[2023-04-04] MEDS: LORazepam 0.5 MG TABLET SL SCH ×2 (07:59→21:14)
--- NOTE | 2023-04-04 08:56 | PROVIDER PROGRESS NOTE ---
Subjective - Prog Note Date Prog Note Date: 04/04/23 Prog Note Time: 08:56 - Subjective Subjective: No new complaints. He continues to reiterate how sad he is about all of this. He just wants to leave the hospital. He does not want to be here anymore. But he is walking the hallways, eating the food, no behavioral issues. Current Medications - Current Medications Current Medications: Active Medications Acetaminophen (Acetaminophen 325 Mg Tablet) 650 mg PO Q4HR PRN PRN Reason: Pain or Fever > 38C (100.4F) Last Admin: 04/03/23 08:05 Dose: 650 mg Aspirin (Aspirin Ec 81 Mg Tablet) 81 mg PO DAILY [facility] Last Admin: 04/04/23 07:58 Dose: 81 mg Docusate Sodium (Docusate Sodium 250 Mg Capsule) 250 - 500 mg PO BID [facility] Last Admin: 04/04/23 07:58 Dose: 250 mg Duloxetine HCl (Duloxetine 30 Mg Capsule) 30 mg PO DAILY [facility] Last Admin: 04/04/23 07:58 Dose: 30 mg Fluticasone Propionate (Fluticasone Nasal [place]) 1 sprays CRISTIAN DAILY [facility] Last Admin: 04/04/23 07:58 Dose: 1 spray Haloperidol (Haloperidol 5 Mg/Ml Vial) 2 mg IM DAILY PRN PRN Reason: Agitation Last Admin: 02/26/23 14:41 Dose: 2 mg Hydrocortisone (Hydrocortisone 1% Cream 28 Gm Tube) 1 applic TOP TID PRN PRN Reason: ITCHING Ibuprofen (Ibuprofen 600 Mg Tablet) 600 mg PO Q6HR PRN PRN Reason: MINOR PAIN Last Admin: 03/03/23 20:57 Dose: 600 mg Lidocaine HCl (Lidocaine Jelly 2% 6 Ml Jel.Pf.Shanda) 1 ml TOP TID PRN PRN Reason: anal itching pain Last Admin: 02/26/23 13:59 Dose: 1 ml Lorazepam (Lorazepam 0.5 Mg Tablet) 0.5 mg SL BID [facility] Last Admin: 04/04/23 07:59 Dose: 0.5 mg Magnesium Oxide (Magnesium Oxide 400 Mg Tablet) 400 mg PO DAILYWM [facility] Last Admin: 04/04/23 07:58 Dose: 400 mg Metformin HCl (Metformin 500 Mg Tablet) 1,000 mg PO 0800,1700 [facility] Last Admin: 04/04/23 07:57 Dose: 1,000 mg Multivitamins/Minerals (Multivitamin W/Minerals Tablet) 1 tab PO DAILYWM [facility] Last Admin: 04/04/23 07:58 Dose: 1 tab Olanzapine (Olanzapine Odt 5 Mg Tablet) 5 mg TL BID [facility] Last Admin: 04/04/23 07:58 Dose: 5 mg Ondansetron HCl (Ondansetron 4 Mg/2 Ml Vial) 4 mg IVP Q6HR PRN PRN Reason: Nausea / Vomiting Polyethylene Glycol (Polyethylene Glycol 3350 17 Gm Packet) 17 gm PO DAILY [facility] Last Admin: 04/04/23 07:57 Dose: 17 gm Senna (Senna 8.6 Mg Tablet) 8.6 - 17.2 mg PO BID [facility] Last Admin: 04/04/23 07:58 Dose: 8.6 mg metFORMIN [Glucophage] 1,000 mg PO BIDWM 08/29/20 Aspirin [Aspirin EC] 81 mg PO DAILY 12/20/22 Atorvastatin Calcium [Lipitor] 80 mg PO HS 12/20/22 DULoxetine [Cymbalta] 60 mg PO DAILY 12/20/22 Fluticasone [Flonase] 1 sprays CRISTIAN DAILY 12/20/22 Gabapentin [Neurontin] 600 mg PO TID 12/20/22 risperiDONE [Risperdal] 3 mg PO BID 12/20/22 Buprenorphine 1 each TD Q7D PRN 12/21/22 Objective - Vital Signs/Intake & Output Reviewed Vital Signs: Yes Vital Signs: Vital Signs x48h Temp Pulse Resp BP Pulse Ox 04/04/23 08:40 36.3 C L 73 18 114/54 L 94 Intake & Output: Intake & Output 04/01/23 04/02/23 04/03/23 04/04/23 23:59 23:59 23:59 23:59 Intake Total 1380 1412 720 720 Balance 1380 1412 720 720 - Objective General Appearance: positive: Alert, Other (Short cropped hair, bearded. Middle-aged white male.) Eyes Bilateral: positive: PERRL, EOMI ENT: positive: Dry mucous membranes (Still present. Even though BUN and creatinine are normal For him and stable.) Neck: positive: No JVD. negative: Stiff neck Respiratory: positive: No respiratory distress. negative: Wheezes, Rales, Rhonchi Abdomen: positive: Non-tender, No organomegaly, Nml bowel sounds Skin: positive: Warm, Dry Extremities: positive: Full ROM, No pedal edema Neurologic/Psychiatric: positive: Oriented x3, CN's nml (2-12), Motor nml, Depressed mood/affect (Very flat affect. Slow monotonic speech. Thought process slower but he does respond to new information just more slowly than most) - Lab Results Fish Bones: 03/12/23 04:23 04/03/23 13:17 Other Labs: Lab Results x24hrs 04/03/23 Range/Units 13:17 Sodium 139 (135-145) mmol/L Potassium 4.1 (3.5-5.0) mmol/L Chloride 101 (101-111) mmol/L Carbon Dioxide 25 (21-32) mmol/L Anion Gap 13.0 (6-13) BUN 25 H (6-20) mg/dL Creatinine 1.4 H (0.6-1.2) mg/dL Estimated GFR (MDRD) 52 L (>89) Glucose 138 H (70-100) mg/dL Calcium 9.6 (8.5-10.3) mg/dL Assessment/Plan - Problem List (1) Major depressive disorder, recurrent, severe with psychotic symptoms Impression: He was admitted with multiple falls. Increasing psychosis. To the point he became catatonic. He has now been here 49 days. There has been remarkable and positive improvement. Most of the change came from resuming his Risperdal 3 mg twice daily, and adding a benzodiazepine for the catatonia. His psychiatrist let us know that they have been working on permanent placement for him. Its been slow going. He was living with his girlfriend/caregiver. Caregiver burden has been too difficult for her recently. We now have DPOA with his daughter. Daughter is amenable to having him placed. We have been waiting for an adult family home and home and community services to to finalize all the paperwork. Social work, case management are working to get the details together. On 03/21, I sat with the patient to discuss his wishes and to complete a POLST form, which was accomplished. 04/03 we found out that the hold up was on the insurance/payment side. The residential could not hold this patient's bed anymore and filled it. So Social work has started anew to find a new residential. The patient has been updated. He is so sad about this. He had dry oral mucosa on exam April 03. So I ordered a BMP for today. BMP shows stable creatinine and BUN. Plan: Await acceptance to a new residential. Encouraged him to take a shower today Encourage water intake. All of his problems have been resolved or stable for weeks as we wait for placement. (2) No able caregiver in household Assessment/Plan: He was living with his girlfriend/caregiver. Caregiver burden has been too difficult for her recently, and she had to leave him unaccompanied at night, when she worked. Plan: Permanent placement is being worked on by our social worker psychiatric, working with his daughter who is now the DPOA. There is a residential that will likely take him, and that will probably be next week per . (3) Chronic psychosis still present. He is still hallucinating at times. But much more controllable. (4) Chronic kidney disease. Acute kidney injury has resolved in the face of rhabdomyolysis and many falls. His creat of 1.3-1.4 is his new baseline. Patient has been at baseline since approximately February 19. He has no longer needed IV fluids. (5) Type 2 diabetes mellitus, controlled. A1c was 6.3%. He is eating 100% of his meals. Metformin resumed February 22. Glucose is controlled. We stopped fingerstick checks at [facility] many days ago. (6) Rectal fissures or abrasions. Part of his psychosis is that aliens or Indians are shoving things in his rectum. He would use his fingers to manually disimpact himself. He gave himself the rectal cuts. He still says that those things that are tucked into his rectum and sometimes speak to him. But he is having less and less agitation with this. (7) Falls at home. Unclear why he kept on falling. He was not intoxicated. No seizures, no syncope. No orthostasis. Not under the influence of any recreational substance, however we suspect he got Suboxone patch haphazardly. His last prescription was written a year ago and it was ordered for 13 weeks. However there were still several patches available in a box that his caregiver brought from home. so we suspect he was intermittently oversedated on his buprenorphine patch, so we stopped the patch entirely and he has had no pain complaints. Here he is now walking with a walker and does so on a regular basis. He did have 1 fall in the hospital where he was leaning forward and he started going toward the floor and the nurse pushed him back. (8) Abrasions of multiple sites due to frequent falls. Photographs taken by nursing. These have all healed. (9) Poor hygiene on admission. He is taking showers here on a more regular basis. (10) Abnormal EKG. Echo was done to make sure he did not have cor pulmonale and Echo was normal. (11) Left arm swelling. Duplex Doppler - February 18 ws neg (12) Right third toe infection. Resolved. Completed Keflex February 28. (13) Rhabdomyolysis This was from the falls and has resolved. (14) Catatonia has resolved after restarting Risperdal 3 mg twice daily, and adding a Benzodiazepine.
[2023-04-05] MEDS: MAGNESIUM OXIDE 400 MG TABLET PO SCH (07:56)
[2023-04-05] MEDS: polyethylene glycoL 3350 17 GM PACKET PO SCH (07:56)
[2023-04-05] MEDS: SENNA 8.6 MG TABLET PO SCH ×2 (07:56→20:33)
[2023-04-05] MEDS: ASPIRIN EC 81 MG TABLET PO SCH (07:56)
[2023-04-05] MEDS: DOCUSATE SODIUM 250 MG CAPSULE PO SCH ×2 (07:56→20:33)
[2023-04-05] MEDS: MULTIVITAMIN W/MINERALS TABLET PO SCH (07:56)
[2023-04-05] MEDS: DULoxetine 30 MG CAPSULE PO SCH (07:57)
[2023-04-05] MEDS: metFORMIN 500 MG TABLET PO SCH ×2 (07:57→17:03)
[2023-04-05] MEDS: OLANZapine ODT 5 MG TABLET TL SCH ×2 (07:57→20:33)
[2023-04-05] MEDS: FLUTICASONE NASAL SPRAY NAS SCH (07:57)
[2023-04-05] MEDS: LORazepam 0.5 MG TABLET SL SCH ×2 (07:57→20:33)
--- NOTE | 2023-04-05 14:55 | PROVIDER PROGRESS NOTE ---
Progress Note - Subjective Subjective: No new complaints. He is resting at bedside. Current Medications - Current Medications Current Medications: Active Medications Acetaminophen (Acetaminophen 325 Mg Tablet) 650 mg PO Q4HR PRN PRN Reason: Pain or Fever > 38C (100.4F) Last Admin: 04/03/23 08:05 Dose: 650 mg Aspirin (Aspirin Ec 81 Mg Tablet) 81 mg PO DAILY [facility] Last Admin: 04/04/23 07:58 Dose: 81 mg Docusate Sodium (Docusate Sodium 250 Mg Capsule) 250 - 500 mg PO BID [facility] Last Admin: 04/04/23 07:58 Dose: 250 mg Duloxetine HCl (Duloxetine 30 Mg Capsule) 30 mg PO DAILY [facility] Last Admin: 04/04/23 07:58 Dose: 30 mg Fluticasone Propionate (Fluticasone Nasal [place]) 1 sprays CRISTIAN DAILY [facility] Last Admin: 04/04/23 07:58 Dose: 1 spray Haloperidol (Haloperidol 5 Mg/Ml Vial) 2 mg IM DAILY PRN PRN Reason: Agitation Last Admin: 02/26/23 14:41 Dose: 2 mg Hydrocortisone (Hydrocortisone 1% Cream 28 Gm Tube) 1 applic TOP TID PRN PRN Reason: ITCHING Ibuprofen (Ibuprofen 600 Mg Tablet) 600 mg PO Q6HR PRN PRN Reason: MINOR PAIN Last Admin: 03/03/23 20:57 Dose: 600 mg Lidocaine HCl (Lidocaine Jelly 2% 6 Ml Jel.Pf.Shanda) 1 ml TOP TID PRN PRN Reason: anal itching pain Last Admin: 02/26/23 13:59 Dose: 1 ml Lorazepam (Lorazepam 0.5 Mg Tablet) 0.5 mg SL BID [facility] Last Admin: 04/04/23 07:59 Dose: 0.5 mg Magnesium Oxide (Magnesium Oxide 400 Mg Tablet) 400 mg PO DAILYWM [facility] Last Admin: 04/04/23 07:58 Dose: 400 mg Metformin HCl (Metformin 500 Mg Tablet) 1,000 mg PO 0800,1700 [facility] Last Admin: 04/04/23 07:57 Dose: 1,000 mg Multivitamins/Minerals (Multivitamin W/Minerals Tablet) 1 tab PO DAILYWM [facility] Last Admin: 04/04/23 07:58 Dose: 1 tab Olanzapine (Olanzapine Odt 5 Mg Tablet) 5 mg TL BID [facility] Last Admin: 04/04/23 07:58 Dose: 5 mg Ondansetron HCl (Ondansetron 4 Mg/2 Ml Vial) 4 mg IVP Q6HR PRN PRN Reason: Nausea / Vomiting Polyethylene Glycol (Polyethylene Glycol 3350 17 Gm Packet) 17 gm PO DAILY [facility] Last Admin: 04/04/23 07:57 Dose: 17 gm Senna (Senna 8.6 Mg Tablet) 8.6 - 17.2 mg PO BID [facility] Last Admin: 04/04/23 07:58 Dose: 8.6 mg metFORMIN [Glucophage] 1,000 mg PO BIDWM 08/29/20 Aspirin [Aspirin EC] 81 mg PO DAILY 12/20/22 Atorvastatin Calcium [Lipitor] 80 mg PO HS 12/20/22 DULoxetine [Cymbalta] 60 mg PO DAILY 12/20/22 Fluticasone [Flonase] 1 sprays CRISTIAN DAILY 12/20/22 Gabapentin [Neurontin] 600 mg PO TID 12/20/22 risperiDONE [Risperdal] 3 mg PO BID 12/20/22 Buprenorphine 1 each TD Q7D PRN 12/21/22 Objective - Vital Signs/Intake & Output Reviewed Vital Signs: Yes Vital Signs: Vital Signs x48h Temp Pulse Resp BP Pulse Ox 04/04/23 08:40 36.3 C L 73 18 114/54 L 94 Intake & Output: Intake & Output 04/01/23 04/02/23 04/03/23 04/04/23 23:59 23:59 23:59 23:59 Intake Total 1380 1412 720 720 Balance 1380 1412 720 720 - Objective General Appearance: positive: Alert, Other (Short cropped hair, bearded. Middle-aged white male.) Eyes Bilateral: positive: PERRL, EOMI ENT: positive: Dry mucous membranes (Still present. Even though BUN and creatinine are normal For him and stable.) Neck: positive: No JVD. negative: Stiff neck Respiratory: positive: No respiratory distress. negative: Wheezes, Rales, Rhonchi Abdomen: positive: Non-tender, No organomegaly, Nml bowel sounds Skin: positive: Warm, Dry Extremities: positive: Full ROM, No pedal edema Neurologic/Psychiatric: positive: Oriented x3, CN's nml (2-12), Motor nml, Depressed mood/affect (Very flat affect. Slow monotonic speech. Thought process slower but he does respond to new information just more slowly than most) - Lab Results Fish Bones: 03/12/23 04:23 04/03/23 13:17 Other Labs: Lab Results x24hrs 04/03/23 Range/Units 13:17 Sodium 139 (135-145) mmol/L Potassium 4.1 (3.5-5.0) mmol/L Chloride 101 (101-111) mmol/L Carbon Dioxide 25 (21-32) mmol/L Anion Gap 13.0 (6-13) BUN 25 H (6-20) mg/dL Creatinine 1.4 H (0.6-1.2) mg/dL Estimated GFR (MDRD) 52 L (>89) Glucose 138 H (70-100) mg/dL Calcium 9.6 (8.5-10.3) mg/dL Assessment/Plan - Problem List (1) Major depressive disorder, recurrent, severe with psychotic symptoms Impression: He was admitted with multiple falls. Increasing psychosis. To the point he became catatonic. He has now been here 49 days. There has been remarkable and positive improvement. Most of the change came from resuming his Risperdal 3 mg twice daily, and adding a benzodiazepine for the catatonia. His psychiatrist let us know that they have been working on permanent placement for him. Its been slow going. He was living with his girlfriend/caregiver. Caregiver burden has been too difficult for her recently. We now have DPOA with his daughter. Daughter is amenable to having him placed. We have been waiting for an adult family home and home and community services to to finalize all the paperwork. Social work, case management are working to get the details together. On 03/21, I sat with the patient to discuss his wishes and to complete a POLST form, which was accomplished. 04/03 we found out that the hold up was on the insurance/payment side. The senior living could not hold this patient's bed anymore and filled it. So Social work has started anew to find a new senior living. The patient has been updated. He is so sad about this. He had dry oral mucosa on exam April 03. So I ordered a BMP for today. BMP shows stable creatinine and BUN. Plan: Await acceptance to a new senior living. Encouraged him to take a shower today Encourage water intake. All of his problems have been resolved or stable for weeks as we wait for placement. (2) No able caregiver in household Assessment/Plan: He was living with his girlfriend/caregiver. Caregiver burden has been too difficult for her recently, and she had to leave him unaccompanied at night, wh en she worked. Plan: Permanent placement is being worked on by our hospice social worker, working with his daughter who is now the DPOA. There is a senior living that will likely take him, and that will probably be next week per . (3) Chronic psychosis still present. He is still hallucinating at times. But much more controllable. (4) Chronic kidney disease. Acute kidney injury has resolved in the face of rhabdomyolysis and many falls. His creat of 1.3-1.4 is his new baseline. Patient has been at baseline since approximately February 19. He has no longer needed IV fluids. (5) Type 2 diabetes mellitus, controlled. A1c was 6.3%. He is eating 100% of his meals. Metformin resumed February 22. Glucose is controlled. We stopped fingerstick checks at [facility] many days ago. (6) Rectal fissures or abrasions. Part of his psychosis is that aliens or Indians are shoving things in his rectum. He would use his fingers to manually disimpact himself. He gave himself the rectal cuts. He still says that those things that are tucked into his rectum and sometimes speak to him. But he is having less and less agitation with this. (7) Falls at home. Unclear why he kept on falling. He was not intoxicated. No seizures, no syncope. No orthostasis. Not under the influence of any recreational substance, however we suspect he got Suboxone patch haphazardly. His last prescription was written a year ago and it was ordered for 13 weeks. However there were still several patches available in a box that his caregiver brought from home. so we suspect he was intermittently oversedated on his buprenorphine patch, so we stopped the patch entirely and he has had no pain complaints. Here he is now walking with a walker and does so on a regular basis. He did have 1 fall in the hospital where he was leaning forward and he started going toward the floor and the nurse pushed him back. (8) Abrasions of multiple sites due to frequent falls. Photographs taken by nursing. These have all healed. (9) Poor hygiene on admission. He is taking showers here on a more regular basis. (10) Abnormal EKG. Echo was done to make sure he did not have cor pulmonale and Echo was normal. (11) Left arm swelling. Duplex Doppler - February 18 ws neg (12) Right third toe infection. Resolved. Completed Keflex February 28. (13) Rhabdomyolysis This was from the falls and has resolved. (14) Catatonia has resolved after restarting Risperdal 3 mg twice daily, and adding a Benzodiazepine.
[2023-04-06] MEDS: MAGNESIUM OXIDE 400 MG TABLET PO SCH (08:49)
[2023-04-06] MEDS: MULTIVITAMIN W/MINERALS TABLET PO SCH (08:50)
[2023-04-06] MEDS: ASPIRIN EC 81 MG TABLET PO SCH (08:50)
[2023-04-06] MEDS: DOCUSATE SODIUM 250 MG CAPSULE PO SCH ×2 (08:50→20:46)
[2023-04-06] MEDS: metFORMIN 500 MG TABLET PO SCH ×2 (08:50→17:05)
[2023-04-06] MEDS: DULoxetine 30 MG CAPSULE PO SCH (08:50)
[2023-04-06] MEDS: polyethylene glycoL 3350 17 GM PACKET PO SCH (08:51)
[2023-04-06] MEDS: SENNA 8.6 MG TABLET PO SCH ×2 (08:51→20:45)
[2023-04-06] MEDS: OLANZapine ODT 5 MG TABLET TL SCH ×2 (08:51→20:48)
[2023-04-06] MEDS: LORazepam 0.5 MG TABLET SL SCH ×2 (08:51→20:46)
[2023-04-06] MEDS: FLUTICASONE NASAL SPRAY NAS SCH (09:22)
[2023-04-06] MEDS: ACETAMINOPHEN 325 MG TABLET PO PRN (15:02)
--- NOTE | 2023-04-06 16:56 | PROVIDER PROGRESS NOTE ---
Progress Note Subjective:Patient has no new complaints. He did have an accidental fall while ambulating in his room but no obvious injuries were sustained. Objective: Vital signs reviewed Head: Normocephalic atraumatic Eyes: PERRLA DC EOMI Mouth: No lesions Neck: Supple Chest: Clear to auscultation Cor: Regular rate and rhythm Abdomen: Soft nontender bowel sounds present : Skin no rashes Extremities no pedal edema Neuro: Alert and oriented x3 Psych: Affect is blunted Assessment/Plan - Problem List (1) Major depressive disorder, recurrent, severe with psychotic symptoms Impression: He was admitted with multiple falls. Increasing psychosis. To the point he became catatonic. He has now been here 49 days. There has been remarkable and positive improvement. Most of the change came from resuming his Risperdal 3 mg twice daily, and adding a benzodiazepine for the catatonia. His psychiatrist let us know that they have been working on permanent placement for him. Its been slow going. He was living with his girlfriend/caregiver. Caregiver burden has been too difficult for her recently. We now have DPOA with his daughter. Daughter is amenable to having him placed. We have been waiting for an adult family home and home and community services to to finalize all the paperwork. Social work, case management are working to get the details together. On 03/21, I sat with the patient to discuss his wishes and to complete a POLST form, which was accomplished. 04/03 we found out that the hold up was on the insurance/payment side. The long-term could not hold this patient's bed anymore and filled it. So Social work has started anew to find a new long-term. The patient has been updated. He is so sad about this. He had dry oral mucosa on exam April 03. So I ordered a BMP for today. BMP shows stable creatinine and BUN. Plan: Await acceptance to a new long-term. Encouraged him to take a shower today Encourage water intake. All of his problems have been resolved or stable for weeks as we wait for placement. (2) No able caregiver in household Assessment/Plan: He was living with his girlfriend/caregiver. Caregiver burden has been too difficult for her recently, and she had to leave him unaccompanied at night, when she worked. Plan: Permanent placement is being worked on by our elementary school social worker, working with his daughter who is now the DPOA. There is a long-term that will likely take him, and that will probably be next week per SW. (3) Chronic psychosis still present. He is still hallucinating at times. But much more controllable. (4) Chronic kidney disease. Acute kidney injury has resolved in the face of rhabdomyolysis and many falls. His creat of 1.3-1.4 is his new baseline. Patient has been at baseline since approximately February 19. He has no longer needed IV fluids. (5) Type 2 diabetes mellitus, controlled. A1c was 6.3%. He is eating 100% of his meals. Metformin resumed February 22. Glucose is controlled. We stopped fingerstick checks [facility] many days ago. (6) Rectal fissures or abrasions. Part of his psychosis is that aliens or [place] are shoving things in his rectum. He would use his fingers to manually disimpact himself. He gave himself the rectal cuts. He still says that those things that are tucked into his rectum and sometimes speak to him. But he is having less and less agitation with this. (7) Falls at home. Unclear why he kept on falling. He was not intoxicated. No seizures, no synco pe. No orthostasis. Not under the influence of any recreational substance, however we suspect he got Suboxone patch haphazardly. His last prescription was written a year ago and it was ordered for 13 weeks. However there were still several patches available in a box that his caregiver brought from home. so we suspect he was intermittently oversedated on his buprenorphine patch, so we stopped the patch entirely and he has had no pain complaints. Here he is now walking with a walker and does so on a regular basis. He did have 1 fall in the hospital where he was leaning forward and he started going toward the floor and the nurse pushed him back. (8) Abrasions of multiple sites due to frequent falls. Photographs taken by nursing. These have all healed. (9) Poor hygiene on admission. He is taking showers here on a more regular basis. (10) Abnormal EKG. Echo was done to make sure he did not have cor pulmonale and Echo was normal. (11) Left arm swelling. Duplex Doppler - February 18 ws neg (12) Right third toe infection. Resolved. Completed Keflex February 28. (13) Rhabdomyolysis This was from the falls and has resolved. (14) Catatonia has resolved after restarting Risperdal 3 mg twice daily, and adding a Benzodiazepine. Subjective: Patient with no new complaints he did have tripped while in his room but no injuries have been discovered at this time Subjective: Patient has no new complaints, he did have a fall while ambulating in his room but did not have any obvious injury noted.
[2023-04-07] MEDS: polyethylene glycoL 3350 17 GM PACKET PO SCH (09:28)
[2023-04-07] MEDS: metFORMIN 500 MG TABLET PO SCH ×2 (09:29→17:10)
[2023-04-07] MEDS: MULTIVITAMIN W/MINERALS TABLET PO SCH (09:29)
[2023-04-07] MEDS: DOCUSATE SODIUM 250 MG CAPSULE PO SCH ×2 (09:29→21:02)
[2023-04-07] MEDS: ASPIRIN EC 81 MG TABLET PO SCH (09:29)
[2023-04-07] MEDS: DULoxetine 30 MG CAPSULE PO SCH (09:31)
[2023-04-07] MEDS: MAGNESIUM OXIDE 400 MG TABLET PO SCH (09:31)
[2023-04-07] MEDS: LORazepam 0.5 MG TABLET SL SCH ×2 (09:33→21:02)
[2023-04-07] MEDS: FLUTICASONE NASAL SPRAY NAS SCH (09:33)
[2023-04-07] MEDS: ACETAMINOPHEN 325 MG TABLET PO PRN (11:03)
[2023-04-07] MEDS: SENNA 8.6 MG TABLET PO SCH ×2 (11:04→21:02)
[2023-04-07] MEDS: OLANZapine ODT 5 MG TABLET TL SCH ×2 (11:04→21:03)
--- NOTE | 2023-04-07 13:10 | PROVIDER PROGRESS NOTE ---
Progress Note Progress Note Subjective:Patient has no new complaints. Objective: Vital signs reviewed Head: Normocephalic atraumatic Eyes: PERRLA DC EOMI Mouth: No lesions Neck: Supple Chest: Clear to auscultation Cor: Regular rate and rhythm Abdomen: Soft nontender bowel sounds present : Skin no rashes Extremities no pedal edema Neuro: Alert and oriented x3 Psych: Affect is blunted Assessment/Plan - Problem List (1) Major depressive disorder, recurrent, severe with psychotic symptoms Impression: He was admitted with multiple falls. Increasing psychosis. To the point he became catatonic. He has now been here 49 days. There has been remarkable and positive improvement. Most of the change came from resuming his Risperdal 3 mg twice daily, and adding a benzodiazepine for the catatonia. His psychiatrist let us know that they have been working on permanent placement for him. Its been slow going. He was living with his girlfriend/caregiver. Caregiver burden has been too difficult for her recently. We now have DPOA with his daughter. Daughter is amenable to having him placed. We have been waiting for an adult family home and home and community services to to finalize all the paperwork. Social work, case management are working to get the details together. On 03/21, I sat with the patient to discuss his wishes and to complete a POLST form, which was accomplished. 04/03 we found out that the hold up was on the insurance/payment side. [facility] and filled it. So Social work has started anew to find a new [facility]. The patient has been updated. He is so sad about this. He had dry oral mucosa on exam April 03. So I ordered a BMP for today. BMP shows stable creatinine and BUN. Plan: Await acceptance to a new [facility]. Encouraged him to take a shower today Encourage water intake. All of his problems have been resolved or stable for weeks as we wait for placement. (2) No able caregiver in household Assessment/Plan: He was living with his girlfriend/caregiver. Caregiver burden has been too difficult for her recently, and she had to leave him unaccompanied at night, when she worked. Plan: Permanent placement is being worked on by our geriatric social work professor, working with his daughter who is now the DPOA. There is a [facility] that [facility] him, and that will probably be next week per SW. (3) Chronic psychosis still present. He is still hallucinating at times. But much more controllable. (4) Chronic kidney disease. Acute kidney injury has resolved in the face of rhabdomyolysis and many falls. His creat of 1.3-1.4 is his new baseline. Patient has been at baseline since approximately February 19. He has no longer needed IV fluids. (5) Type 2 diabetes mellitus, controlled. A1c was 6.3%. He is eating 100% of his meals. Metformin resumed February 22. Glucose is controlled. We stopped fingerstick checks at [facility] many days ago. (6) Rectal fissures or abrasions. Part of his psychosis is that aliens or Indians are shoving things in his rectum. He would use his fingers to manually disimpact himself. He gave himself the rectal cuts. He still says that those things that are tucked into his rectum and sometimes speak to him. But he is having less and less agitation with this. (7) Falls at home. Unclear why he kept on falling. He was not intoxicated. No seizures, no syncope. No orthostasis. Not under the influence of any recreational substance, however we suspect he got Suboxone patch haphazardly. His last prescription was written a year ago and it was ordered for 13 weeks. However there were still several patches available in a box that his caregiver brought from home. so we suspect he was intermittently oversedated on his buprenorphine patch, so we stopped the patch entirely and he has had no pain complaints. Here he is now walking with a walker and does so on a regular basis. He did have 1 fall in the hospital where he was leaning forward and he started going toward the floor and the nurse pushed him back. (8) Abrasions of multiple sites due to frequent falls. Photographs taken by nursing. These have all healed. (9) Poor hygiene on admission. He is taking showers here on a more regular basis. (10) Abnormal EKG. Echo was done to make sure he did not have cor pulmonale and Echo was normal. (11) Left arm swelling. Duplex Doppler - February 18 ws neg (12) Right third toe infection. Resolved. Completed Keflex February 28. (13) Rhabdomyolysis This was from the falls and has resolved. (14) Catatonia has resolved after restarting Risperdal 3 mg twice daily, and adding a Benzodiazepine. Subjective: Patient with no new complaints he did have tripped while in his room but no injuries have been discovered at this time Subjective: Patient has no new complaints, he did have a fall while ambulating in his room but did not have any obvious injury noted.
[2023-04-08] MEDS: metFORMIN 500 MG TABLET PO SCH ×2 (07:58→17:27)
[2023-04-08] MEDS: ACETAMINOPHEN 325 MG TABLET PO PRN (07:58)
[2023-04-08] MEDS: MAGNESIUM OXIDE 400 MG TABLET PO SCH (07:59)
[2023-04-08] MEDS: MULTIVITAMIN W/MINERALS TABLET PO SCH (07:59)
[2023-04-08] MEDS: DOCUSATE SODIUM 250 MG CAPSULE PO SCH ×2 (07:59→21:00)
[2023-04-08] MEDS: SENNA 8.6 MG TABLET PO SCH ×2 (07:59→21:00)
[2023-04-08] MEDS: polyethylene glycoL 3350 17 GM PACKET PO SCH (08:00)
[2023-04-08] MEDS: DULoxetine 30 MG CAPSULE PO SCH (08:00)
[2023-04-08] MEDS: ASPIRIN EC 81 MG TABLET PO SCH (08:00)
[2023-04-08] MEDS: FLUTICASONE NASAL SPRAY NAS SCH (08:00)
[2023-04-08] MEDS: OLANZapine ODT 5 MG TABLET TL SCH ×2 (08:00→21:00)
[2023-04-08] MEDS: LORazepam 0.5 MG TABLET SL SCH ×2 (08:00→21:00)
[2023-04-09] MEDS: polyethylene glycoL 3350 17 GM PACKET PO SCH (08:00)
[2023-04-09] MEDS: metFORMIN 500 MG TABLET PO SCH ×2 (08:00→17:41)
[2023-04-09] MEDS: LORazepam 0.5 MG TABLET SL SCH ×2 (08:01→20:53)
[2023-04-09] MEDS: DOCUSATE SODIUM 250 MG CAPSULE PO SCH ×2 (08:01→20:52)
[2023-04-09] MEDS: ASPIRIN EC 81 MG TABLET PO SCH (08:01)
[2023-04-09] MEDS: MULTIVITAMIN W/MINERALS TABLET PO SCH (08:01)
[2023-04-09] MEDS: DULoxetine 30 MG CAPSULE PO SCH (08:01)
[2023-04-09] MEDS: OLANZapine ODT 5 MG TABLET TL SCH ×2 (08:01→20:52)
[2023-04-09] MEDS: SENNA 8.6 MG TABLET PO SCH ×2 (08:01→20:53)
[2023-04-09] MEDS: FLUTICASONE NASAL SPRAY NAS SCH (08:01)
[2023-04-09] MEDS: MAGNESIUM OXIDE 400 MG TABLET PO SCH (08:02)
[2023-04-10] MEDS: polyethylene glycoL 3350 17 GM PACKET PO SCH (08:11)
[2023-04-10] MEDS: MULTIVITAMIN W/MINERALS TABLET PO SCH (08:12)
[2023-04-10] MEDS: LORazepam 0.5 MG TABLET SL SCH ×2 (08:12→20:12)
[2023-04-10] MEDS: MAGNESIUM OXIDE 400 MG TABLET PO SCH (08:12)
[2023-04-10] MEDS: ASPIRIN EC 81 MG TABLET PO SCH (08:12)
[2023-04-10] MEDS: OLANZapine ODT 5 MG TABLET TL SCH ×2 (08:13→20:13)
[2023-04-10] MEDS: metFORMIN 500 MG TABLET PO SCH ×2 (08:13→18:17)
[2023-04-10] MEDS: SENNA 8.6 MG TABLET PO SCH ×2 (08:13→20:12)
[2023-04-10] MEDS: DULoxetine 30 MG CAPSULE PO SCH (08:13)
[2023-04-10] MEDS: DOCUSATE SODIUM 250 MG CAPSULE PO SCH ×2 (08:13→20:12)
[2023-04-10] MEDS: FLUTICASONE NASAL SPRAY NAS SCH (10:51)
--- NOTE | 2023-04-10 20:02 | PROVIDER PROGRESS NOTE ---
Assessment/Plan - Problem List (1) Major depressive disorder, recurrent, severe with psychotic symptoms Assessment/Plan: He was admitted with multiple falls. Increasing psychosis. To the point he became catatonic. He has now been here over 35 days. There has been remarkable and positive improvement. Most of the change came from resuming his Risperdal 3 mg twice daily, and adding a benzodiazepine for the catatonia. His psychiatrist let us know that they have been working on permanent placement for him. Its been slow going. He was living with his girlfriend/caregiver. Caregiver burden has been too difficult for her recently. We now have DPOA with his daughter. Daughter is amenable to having him placed. At this time we are awaiting for an adult family home to finalize all the paperwork. Social work, case management are working to get the details together. On 03/21, I sat with the patient to discuss his wishes and to complete a POLST form, which was accomplished. Otherwise there is no new information for this patient. No orders written today All of his problems have been resolved or stable for weeks as we wait for placement. (2) No able caregiver in household Assessment/Plan: He was living with his girlfriend/caregiver. Caregiver burden has been too difficult for her recently, and she had to leave him unaccompanied at night, when she worked. Plan: Permanent placement is being worked on by our adoption social worker, working with his daughter who is now the DPOA. There is a long-term that will likely take him, and that will probably be next week per SW. (3) Chronic psychosis still present. He is still hallucinating at times. But much more controllable. (4) Chronic kidney disease. Acute kidney injury has resolved in the face of rhabdomyolysis and many falls. His creat of 1.3-1.4 is his new baseline. Patient has been at baseline since approximately February 19. He has no longer needed IV fluids. (5) Type 2 diabetes mellitus, controlled. A1c was 6.3%. He is eating 100% of his meals. Metformin resumed February 22. Glucose is controlled. We stopped fingerstick checks at [facility] many days ago. (6) Rectal fissures or abrasions. Part of his psychosis is that aliens or Indians are shoving things in his rectum. He would use his fingers to manually disimpact himself. He gave himself the rectal cuts. He still says that those things that are tucked into his rectum and sometimes speak to him. But he is having less and less agitation with this. (7) Falls at home. Unclear why he kept on falling. He was not intoxicated. No seizures, no syncope. No orthostasis. Not under the influence of any recreational substance, however we suspect he got Suboxone patch haphazardly. His last prescription was written a year ago and it was ordered for 13 weeks. However there were still several patches available in a box that his caregiver brought from home. so we suspect he was intermittently oversedated on his buprenorphine patch, so we stop ped the patch entirely and he has had no pain complaints. Here he is now walking with a walker and does so on a regular basis. He did have 1 fall in the hospital where he was leaning forward and he started going toward the floor and the nurse pushed him back. (8) Abrasions of multiple sites due to frequent falls. Photographs taken by nursing. These have all healed. (9) Poor hygiene on admission. He is taking showers here on a more regular basis. (10) Abnormal EKG. Echo was done to make sure he did not have cor pulmonale and Echo was normal. (11) Left arm swelling. Duplex Doppler - February 18 ws neg (12) Right third toe infection. Resolved. Completed Keflex February 28. (13) Rhabdomyolysis This was from the falls and has resolved. (14) Catatonia has resolved after restarting Risperdal 3 mg twice daily, and adding a Benzodiazepine. - Current Meds Current Meds: Current Medications Generic Name Dose Route Start Last Admin Trade Name Jyoti PRN Reason Stop Dose Admin Acetaminophen 650 mg 02/15/23 19:57 04/08/23 07:58 Acetaminophen 325 Mg Tablet PO 650 mg Q4HR PRN Administration Pain or Fever > 38C (100.4F) Aspirin 81 mg 02/18/23 09:00 04/10/23 08:12 Aspirin Ec 81 Mg Tablet PO 81 mg DAILY ANGELA Administration Docusate Sodium 250 - 500 mg 02/26/23 17:00 04/10/23 08:13 Docusate Sodium 250 Mg Capsule PO 250 mg BID ANGELA Administration Duloxetine HCl 30 mg 02/15/23 13:30 04/10/23 08:13 Duloxetine 30 Mg Capsule PO 30 mg DAILY ANGELA Administration Fluticasone Propionate 1 sprays 02/17/23 09:00 04/10/23 10:51 Fluticasone Nasal [place] CRISTIAN Not Given DAILY ANGELA Haloperidol 2 mg 02/22/23 13:06 02/26/23 14:41 Haloperidol 5 Mg/Ml Vial IM 2 mg DAILY PRN Administration Agitation Ibuprofen 600 mg 02/15/23 19:57 03/03/23 20:57 Ibuprofen 600 Mg Tablet PO 600 mg Q6HR PRN Administration MINOR PAIN Lidocaine HCl 1 ml 02/23/23 13:54 02/26/23 13:59 Lidocaine Jelly 2% 6 Ml Jel.Pf.Shanda TOP 1 ml TID PRN Administration anal itching pain Lorazepam 0.5 mg 02/21/23 21:00 04/10/23 08:12 Lorazepam 0.5 Mg Tablet SL 0.5 mg BID ANGELA Administration Magnesium Oxide 400 mg 02/16/23 08:00 04/10/23 08:12 Magnesium Oxide 400 Mg Tablet PO 400 mg DAILYWM ANGELA Administration Metformin HCl 1,000 mg 03/17/23 17:00 04/10/23 18:17 Metformin 500 Mg Tablet PO 1,000 mg 0800,1700 ANGELA Administration Multivitamins/Minerals 1 tab 02/18/23 09:00 04/10/23 08:12 Multivitamin W/Minerals Tablet PO 1 tab DAILYWM ANGELA Administration Olanzapine 5 mg 02/23/23 21:00 04/10/23 08:13 Olanzapine Odt 5 Mg Tablet TL 5 mg BID ANGELA Administration Polyethylene Glycol 17 gm 02/17/23 18:00 04/10/23 08:11 Polyethylene Glycol 3350 17 Gm Packet PO 17 gm DAILY ANGELA Administration Senna 8.6 - 17.2 mg 02/26/23 17:00 04/10/23 08:13 Senna 8.6 Mg Tablet PO 8.6 mg BID ANGELA Administration - Lab Result Fish Bone Diagrams: 03/12/23 04:23 04/03/23 13:17 Subjective - Subjective Patient Reports: No Complaints Objective Vital Signs: Vital Signs - 24 hr 04/10/23 08:00 Temperature 36.2 C L Heart Rate [ 73 Brachial] Respiratory 14 Rate Blood Pressure 100/67 [Left Radial artery] O2 Saturation 100 Oxygen O2 Source Room air I&O (Last 24 Hrs): Intake and Output Totals x24h 04/08/23 04/09/23 04/10/23 23:59 23:59 23:59 Intake Total 21370 1216 Balance 2137 1919 1216 General: No acute distress Neuro: Alert Cardiovascular: Regular rate Respiratory: No respiratory distress Extremities: No clubbing, No edema - Results Results: Laboratory Results WBC 10.0 x10^3/uL (4.8-10.8) 03/12/23 04:23 RBC 4.22 10^6/uL (4.70-6.10) L 03/12/23 04:23 Hgb 12.6 g/dL (14.0-18.0) L 03/12/23 04: Hct 37.4 % (42.0-52.0) L 03/12/23 04:23 MCV 88.6 fL (80.0-94.0) 03/12/23 04:23 MCH 29.9 pg (27.0-31.0) 03/12/23 04: MCHC 33.7 g/dL (32.0-36.0) 03/12/23 04: RDW 12.8 % (12.0-15.0) 03/12/23 04:23 Plt Count 309 10^3/uL (130-450) 03/12/23 04: MPV 9.6 fL (7.4-11.4) 03/12/23 04:23 Neut # (Auto) 4.1 10^3/uL (1.5-6.6) 03/05/23 05:20 Lymph # (Auto) 2.8 10^3/uL (1.5-3.5) 03/05/23 05:20 Saunders # (Auto) 0.6 10^3/uL (0.0-1.0) 03/05/23 05:20 Eos # (Auto) 0.3 10^3/uL (0.0-0.7) 03/05/23 05:20 Baso # (Auto) 0.0 10^3/uL (0.0-0.1) 03/05/23 05:20 Absolute Nucleated RBC 0.00 x10^3/uL 03/05/23 05:20 Total Counted 100 02/14/23 03:15 Band Neuts % (Manual) 9 % (0-10) 02/14/23 03:15 Abnorm Lymph % (Manual) 0 % 02/14/23 03:15 Nucleated RBC % 0.0 /100WBC 03/05/23 05:20 Neutrophils # (Manual) 18.2 10^3/uL (1.5-6.6) H 02/14/23 03:15 Lymphocytes # (Manual) 1.0 10^3/uL (1.5-3.5) L 02/14/23 03:15 Monocytes # (Manual) 1.2 10^3/uL (0.0-1.0) H 02/14/23 03:15 Eosinophils # (Manual) 0.0 10^3/uL (0-0.7) 02/14/23 03:15 Basophils # (Manual) 0.0 10^3/uL (0-0.1) 02/14/23 03:15 Differential Comment MANUAL DIFFERENTIAL 02/14/23 03:15 Sodium 139 mmol/L (135-145) 04/03/23 13:17 Potassium 4.1 mmol/L (3.5-5.0) 04/03/23 13:17 Chloride 101 mmol/L (101-111) 04/03/23 13:17 Carbon Dioxide 25 mmol/L (21-32) 04/03/23 13:17 Anion Gap 13.0 (6-13) 04/03/23 13:17 BUN 25 mg/dL (6-20) H 04/03/23 13:17 Creatinine 1.4 mg/dL (0.6-1.2) H 04/03/23 13:17 Estimated GFR (MDRD) 52 (>89) L 04/03/23 13:17 Glucose 138 mg/dL (70-100) H 04/03/23 13:17 POC Whole Bld Glucose 103 mg/dL (70 - 100) H 03/14/23 07:38 Estimat Average Glucose 134 mg/dL (70-100) H 02/15/23 05:20 Hemoglobin A1c % 6.3 % (4.27-6.07) H 02/15/23 05:20 Calcium 9.6 mg/dL (8.5-10.3) 04/03/23 13:17 Magnesium 1.5 mg/dL (1.7-2.8) L 02/17/23 05:35 Total Bilirubin 0.3 mg/dL (0.2-1.0) 03/03/23 04:48 AST 25 IU/L (10-42) 03/03/23 04:48 ALT 33 IU/L (10-60) 03/03/23 04:48 Alkaline Phosphatase 77 IU/L (42-121) 03/03/23 04:48 Total Creatine Kinase 440 IU/L (22-269) H 02/23/23 14:10 CK-MB (CK-2) 265.9 ng/mL (0.6-6.3) H 02/14/23 03:15 Total Protein 7.2 g/dL (6.7-8.2) 03/03/23 04:48 Albumin 4.0 g/dL (3.2-5.5) 03/03/23 04:48 Globulin 3.2 g/dL (2.1-4.2) 03/03/23 04:48 Albumin/Globulin Ratio 1.3 (1.0-2.2) 03/03/23 04:48 Lipase 34 U/L (22-51) 02/14/23 03:15 TSH 1.21 uIU/mL (0.34-5.60) 02/14/23 03:15 Urine Color YELLOW 02/18/23 15:10 Urine Clarity CLEAR (CLEAR) 02/18/23 15:10 Urine pH 5.5 PH (5.0-7.5) 02/18/23 15:10 Ur Specific [place] 1.020 (1.002-1.030) 02/18/23 15:10 Urine Protein NEGATIVE mg/dL (NEGATIVE) 02/18/23 15:10 Urine Glucose (UA) NEGATIVE mg/dL (NEGATIVE) 02/18/23 15:10 Urine Ketones NEGATIVE mg/dL (NEGATIVE) 02/18/23 15:10 Urine Occult Blood MODERATE (NEGATIVE) H 02/18/23 15:10 Urine Nitrite NEGATIVE (NEGATIVE) 02/18/23 15:10 Urine Bilirubin NEGATIVE (NEGATIVE) 02/18/23 15:10 Urine Urobilinogen 0.2 (NORMAL) E.U./dL (NORMAL) 02/18/23 15:10 Ur Leukocyte Esterase TRACE (NEGATIVE) H 02/18/23 15:10 Urine RBC 11-25 /HPF (0-5) H 02/18/23 15:10 Urine WBC 6-10 /HPF (0-3) H 02/18/23 15:10 Ur Squamous Epith Cells RARE Squamous (<= Few) 02/18/23 15:10 Urine Bacteria None Seen /HPF (None Seen) 02/18/23 15:10 Urine Sperm PRESENT 02/18/23 15:10 Ur Microscopic Review INDICATED 02/14/23 10:34 Urine Culture Comments INDICATED 02/18/23 15:10 Urine Opiates Screen NEGATIVE (NEGATIVE) 02/14/23 10:34 Ur Oxycodone Screen NEGATIVE (NEGATIVE) 02/14/23 10:34 Urine Methadone Screen NEGATIVE (NEGATIVE) 02/14/23 10:34 Ur Propoxyphene Screen NEGATIVE (NEGATIVE) 02/14/23 10:34 Ur Barbiturates Screen NEGATIVE (NEGATIVE) 02/14/23 10:34 Ur Tricyclics Screen NEGATIVE (NEGATIVE) 02/14/23 10:34 Ur Phencyclidine Scrn NEGATIVE (NEGATIVE) 02/14/23 10:34 Ur Amphetamine Screen NEGATIVE (NEGATIVE) 02/14/23 10:34 U Methamphetamines Scrn NEGATIVE (NEGATIVE) 02/14/23 10:34 U Benzodiazepines Scrn NEGATIVE (NEGATIVE) 02/14/23 10:34 Urine Cocaine Screen NEGATIVE (NEGATIVE) 02/14/23 10:34 U Cannabinoids Screen POSITIVE (NEGATIVE) H 02/14/23 10:34 Ethyl Alcohol < 5.0 mg/dL 02/14/23 03:15
--- NOTE | 2023-04-10 20:04 | PROVIDER PROGRESS NOTE ---
Assessment/Plan - Problem List (1) Major depressive disorder, recurrent, severe with psychotic symptoms Assessment/Plan: He was admitted with multiple falls. Increasing psychosis. To the point he became catatonic. He has now been here over 35 days. There has been remarkable and positive improvement. Most of the change came from resuming his Risperdal 3 mg twice daily, and adding a benzodiazepine for the catatonia. His psychiatrist let us know that they have been working on permanent placement for him. Its been slow going. He was living with his girlfriend/caregiver. Caregiver burden has been too difficult for her recently. We now have DPOA with his daughter. Daughter is amenable to having him placed. At this time we are awaiting for an adult family home to finalize all the paperwork. Social work, case management are working to get the details together. On 03/21, I sat with the patient to discuss his wishes and to complete a POLST form, which was accomplished. Otherwise there is no new information for this patient. No orders written today All of his problems have been resolved or stable for weeks as we wait for placement. (2) No able caregiver in household Assessment/Plan: He was living with his girlfriend/caregiver. Caregiver burden has been too difficult for her recently, and she had to leave him unaccompanied at night, when she worked. Today at 1500 he was to have an interview with a facility Plan: Permanent placement is being worked on by our director social, working with his daughter who is now the DPOA. There was a assisted that could take him, but that bed could not be held any longer. is continuing to arrange for dch to a safe location (3) Chronic psychosis still present. He is still hallucinating at times. But much more controllable. (4) Chronic kidney disease. Acute kidney injury has resolved in the face of rhabdomyolysis and many falls. His creat of 1.3-1.4 is his new baseline. Patient has been at baseline since approximately February 19. He has no longer needed IV fluids. (5) Type 2 diabetes mellitus, controlled. A1c was 6.3%. He is eating 100% of his meals. Metformin resumed February 22. Glucose is controlled. We stopped fingerstick checks at [facility] many days ago. (6) Rectal fissures or abrasions. Part of his psychosis is that aliens or Indians are shoving things in his rectum. He would use his fingers to manually disimpact himself. He gave himself the rectal cuts. He still says that those things that are tucked into his rectum and sometimes speak to him. But he is having less and less agitation with this. (7) Falls at home. Unclear why he kept on falling. He was not intoxicated. No seizures, no syncope. No orthostasis. Not under the influence of any recreational substance, however we suspect he got Suboxone patch haphazardly. His last prescription was written a year ago and it was ordered for 13 weeks. However there were still several patches available in a box that his caregiver brought from home. so we suspect he was intermittently oversedated on his buprenorphine patch, so we stopped the patch entirely and he has had no pain complaints. Here he is now walking with a walker and does so on a regular basis. He did have 1 fall in the hospital where he was leaning forward and he started going toward the floor and the nurse pushed him back. (8) Abrasions of multiple sites due to frequent falls. Photographs taken by nursing. These have all healed. (9) Poor hygiene on admission. He is taking showers here on a more regular basis. (10) Abnormal EKG. Echo was done to make sure he did not have cor pulmonale and Echo was normal. (11) Left arm swelling. Duplex Doppler - February 18 ws neg (12) Right third toe infection. Resolved. Completed Keflex February 28. (13) Rhabdomyolysis This was from the falls and has resolved. (14) Catatonia has resolved after restarting Risperdal 3 mg twice daily, and adding a Benzodiazepine. - Current Meds Current Meds: Current Medications Generic Name Dose Route Start Last Admin Trade Name Jyoti PRN Reason Stop Dose Admin Acetaminophen 650 mg 02/15/23 19:57 04/08/23 07:58 Acetaminophen 325 Mg Tablet PO 650 mg Q4HR PRN Administration Pain or Fever > 38C (100.4F) Aspirin 81 mg 02/18/23 09:00 04/10/23 08:12 Aspirin Ec 81 Mg Tablet PO 81 mg DAILY ANGELA Administration Docusate Sodium 250 - 500 mg 02/26/23 17:00 04/10/23 08:13 Docusate Sodium 250 Mg Capsule PO 250 mg BID ANGELA Administration Duloxetine HCl 30 mg 02/15/23 13:30 04/10/23 08:13 Duloxetine 30 Mg Capsule PO 30 mg DAILY ANGELA Administration Fluticasone Propionate 1 sprays 02/17/23 09:00 04/10/23 10:51 Fluticasone Nasal [place] CRISTIAN Not Given DAILY ANGELA Haloperidol 2 mg 02/22/23 13:06 02/26/23 14:41 Haloperidol 5 Mg/Ml Vial IM 2 mg DAILY PRN Administration Agitation Ibuprofen 600 mg 02/15/23 19:57 03/03/23 20:57 Ibuprofen 600 Mg Tablet PO 600 mg Q6HR PRN Administration MINOR PAIN Lidocaine HCl 1 ml 02/23/23 13:54 02/26/23 13:59 Lidocaine Jelly 2% 6 Ml Jel.Pf.Shanda TOP 1 ml TID PRN Administration anal itching pain Lorazepam 0.5 mg 02/21/23 21:00 04/10/23 08:12 Lorazepam 0.5 Mg Tablet SL 0.5 mg BID ANGELA Administration Magnesium Oxide 400 mg 02/16/23 08:00 04/10/23 08:12 Magnesium Oxide 400 Mg Tablet PO 400 mg DAILYWM ANGELA Administration Metformin HCl 1,000 mg 03/17/23 17:00 04/10/23 18:17 Metformin 500 Mg Tablet PO 1,000 mg 0800,1700 ANGELA Administration Multivitamins/Minerals 1 tab 02/18/23 09:00 04/10/23 08:12 Multivitamin W/Minerals Tablet PO 1 tab DAILYWM ANGELA Administration Olanzapine 5 mg 02/23/23 21:00 04/10/23 08:13 Olanzapine Odt 5 Mg Tablet TL 5 mg BID ANGELA Administration Polyethylene Glycol 17 gm 02/17/23 18:00 04/10/23 08:11 Polyethylene Glycol 3350 17 Gm Packet PO 17 gm DAILY ANGELA Administration Senna 8.6 - 17.2 mg 02/26/23 17:00 04/10/23 08:13 Senna 8.6 Mg Tablet PO 8.6 mg BID ANGELA Administration - Lab Result Fish Bone Diagrams: 03/12/23 04:23 04/03/23 13:17 Subjective - Subjective Patient Reports: No Complaints Objective Vital Signs: Vital Signs - 24 hr 04/10/23 08:00 Temperature 36.2 C L Heart Rate [ 73 Brachial] Respiratory 14 Rate Blood Pressure 100/67 [Left Radial artery] O2 Saturation 100 Oxygen O2 Source Room air I&O (Last 24 Hrs): Intake and Output Totals x24h 04/08/23 04/09/23 04/10/23 23:59 23:59 23:59 Intake Total 21376 Balance 21376 General: Alert, Oriented x3 HEENT: Mucous membr. moist/pink Neuro: Alert, Non Focal Cardiovascular: Regular rate Respiratory: No respiratory distress Extremities: No clubbing, No edema - Results Results: Laboratory Results WBC 10.0 x10^3/uL (4.8-10.8) 03/12/23 04: RBC 4.22 10^6/uL (4.70-6.10) L 03/12/23 04:23 Hgb 12.6 g/dL (14.0-18.0) L 03/12/23 04:23 Hct 37.4 % (42.0-52.0) L 03/12/23 04: MCV 88.6 fL (80.0-94.0) 03/12/23 04:23 MCH 29.9 pg (27.0-31.0) 03/12/23 04: MCHC 33.7 g/dL (32.0-36.0) 03/12/23 04: RDW 12.8 % (12.0-15.0) 03/12/23 04:23 Plt Count 309 10^3/uL (130-450) 03/12/23 04: MPV 9.6 fL (7.4-11.4) 03/12/23 04:23 Neut # (Auto) 4.1 10^3/uL (1.5-6.6) 03/05/23 05:20 Lymph # (Auto) 2.8 10^3/uL (1.5-3.5) 03/05/23 05:20 [place] # (Auto) 0.6 10^3/uL (0.0-1.0) 03/05/23 05:20 Eos # (Auto) 0.3 10^3/uL (0.0-0.7) 03/05/23 05:20 Baso # (Auto) 0.0 10^3/uL (0.0-0.1) 03/05/23 05:20 Absolute Nucleated RBC 0.00 x10^3/uL 03/05/23 05:20 Total Counted 100 02/14/23 03:15 Band Neuts % (Manual) 9 % (0-10) 02/14/23 03:15 Abnorm Lymph % (Manual) 0 % 02/14/23 03:15 Nucleated RBC % 0.0 /100WBC 03/05/23 05:20 Neutrophils # (Manual) 18.2 10^3/uL (1.5-6.6) H 02/14/23 03:15 Lymphocytes # (Manual) 1.0 10^3/uL (1.5-3.5) L 02/14/23 03:15 Monocytes # (Manual) 1.2 10^3/uL (0.0-1.0) H 02/14/23 03:15 Eosinophils # (Manual) 0.0 10^3/uL (0-0.7) 02/14/23 03:15 Basophils # (Manual) 0.0 10^3/uL (0-0.1) 02/14/23 03:15 Differential Comment MANUAL DIFFERENTIAL 02/14/23 03:15 Sodium 139 mmol/L (135-145) 04/03/23 13:17 Potassium 4.1 mmol/L (3.5-5.0) 04/03/23 13:17 Chloride 101 mmol/L (101-111) 04/03/23 13:17 Carbon Dioxide 25 mmol/L (21-32) 04/03/23 13:17 Anion Gap 13.0 (6-13) 04/03/23 13:17 BUN 25 mg/dL (6-20) H 04/03/23 13:17 Creatinine 1.4 mg/dL (0.6-1.2) H 04/03/23 13:17 Estimated GFR (MDRD) 52 (>89) L 04/03/23 13:17 Glucose 138 mg/dL (70-100) H 04/03/23 13:17 POC Whole Bld Glucose 103 mg/dL (70 - 100) H 03/14/23 07:38 Estimat Average Glucose 134 mg/dL (70-100) H 02/15/23 05:20 Hemoglobin A1c % 6.3 % (4.27-6.07) H 02/15/23 05:20 Calcium 9.6 mg/dL (8.5-10.3) 04/03/23 13:17 Magnesium 1.5 mg/dL (1.7-2.8) L 02/17/23 05:35 Total Bilirubin 0.3 mg/dL (0.2-1.0) 03/03/23 04:48 AST 25 IU/L (10-42) 03/03/23 04:48 ALT 33 IU/L (10-60) 03/03/23 04:48 Alkaline Phosphatase 77 IU/L (42-121) 03/03/23 04:48 Total Creatine Kinase 440 IU/L (22-269) H 02/23/23 14:10 CK-MB (CK-2) 265.9 ng/mL (0.6-6.3) H 02/14/23 03:15 Total Protein 7.2 g/dL (6.7-8.2) 03/03/23 04:48 Albumin 4.0 g/dL (3.2-5.5) 03/03/23 04:48 Globulin 3.2 g/dL (2.1-4.2) 03/03/23 04:48 Albumin/Globulin Ratio 1.3 (1.0-2.2) 03/03/23 04:48 Lipase 34 U/L (22-51) 02/14/23 03:15 TSH 1.21 uIU/mL (0.34-5.60) 02/14/23 03:15 Urine Color YELLOW 02/18/23 15:10 Urine Clarity CLEAR (CLEAR) 02/18/23 15:10 Urine pH 5.5 PH (5.0-7.5) 02/18/23 15:10 Ur Specific [place] 1.020 (1.002-1.030) 02/18/23 15:10 Urine Protein NEGATIVE mg/dL (NEGATIVE) 02/18/23 15:10 Urine Glucose (UA) NEGATIVE mg/dL (NEGATIVE) 02/18/23 15:10 Urine Ketones NEGATIVE mg/dL (NEGATIVE) 02/18/23 15:10 Urine Occult Blood MODERATE (NEGATIVE) H 02/18/23 15:10 Urine Nitrite NEGATIVE (NEGATIVE) 02/18/23 15:10 Urine Bilirubin NEGATIVE (NEGATIVE) 02/18/23 15:10 Urine Urobilinogen 0.2 (NORMAL) E.U./dL (NORMAL) 02/18/23 15:10 Ur Leukocyte Esterase TRACE (NEGATIVE) H 02/18/23 15:10 Urine RBC 11-25 /HPF (0-5) H 02/18/23 15:10 Urine WBC 6-10 /HPF (0-3) H 02/18/23 15:10 Ur Squamous Epith Cells RARE Squamous (<= Few) 02/18/23 15:10 Urine Bacteria None Seen /HPF (None Seen) 02/18/23 15:10 Urine Sperm PRESENT 02/18/23 15:10 Ur Microscopic Review INDICATED 02/14/23 10:34 Urine Culture Comments INDICATED 02/18/23 15:10 Urine Opiates Screen NEGATIVE (NEGATIVE) 02/14/23 10:34 Ur Oxycodone Screen NEGATIVE (NEGATIVE) 02/14/23 10:34 Urine Methadone Screen NEGATIVE (NEGATIVE) 02/14/23 10:34 Ur Propoxyphene Screen NEGATIVE (NEGATIVE) 02/14/23 10:34 Ur Barbiturates Screen NEGATIVE (NEGATIVE) 02/14/23 10:34 Ur Tricyclics Screen NEGATIVE (NEGATIVE) 02/14/23 10:34 Ur Phencyclidine Scrn NEGATIVE (NEGATIVE) 02/14/23 10:34 Ur Amphetamine Screen NEGATIVE (NEGATIVE) 02/14/23 10:34 U Methamphetamines Scrn NEGATIVE (NEGATIVE) 02/14/23 10:34 U Benzodiazepines Scrn NEGATIVE (NEGATIVE) 02/14/23 10:34 Urine Cocaine Screen NEGATIVE (NEGATIVE) 02/14/23 10:34 U Cannabinoids Screen POSITIVE (NEGATIVE) H 02/14/23 10:34 Ethyl Alcohol < 5.0 mg/dL 02/14/23 03:15
[2023-04-11] MEDS: FLUTICASONE NASAL SPRAY NAS SCH (08:03)
[2023-04-11] MEDS: MAGNESIUM OXIDE 400 MG TABLET PO SCH (08:04)
[2023-04-11] MEDS: metFORMIN 500 MG TABLET PO SCH ×2 (08:04→17:08)
[2023-04-11] MEDS: OLANZapine ODT 5 MG TABLET TL SCH ×2 (08:04→21:15)
[2023-04-11] MEDS: MULTIVITAMIN W/MINERALS TABLET PO SCH (08:04)
[2023-04-11] MEDS: DULoxetine 30 MG CAPSULE PO SCH (08:04)
[2023-04-11] MEDS: LORazepam 0.5 MG TABLET SL SCH ×2 (08:04→21:15)
[2023-04-11] MEDS: DOCUSATE SODIUM 250 MG CAPSULE PO SCH ×2 (08:04→21:15)
[2023-04-11] MEDS: ASPIRIN EC 81 MG TABLET PO SCH (08:04)
[2023-04-11] MEDS: polyethylene glycoL 3350 17 GM PACKET PO SCH (11:10)
[2023-04-11] MEDS: SENNA 8.6 MG TABLET PO SCH ×2 (11:10→21:15)
--- NOTE | 2023-04-11 18:45 | PROVIDER PROGRESS NOTE ---
Assessment/Plan - Problem List (1) Major depressive disorder, recurrent, severe with psychotic symptoms Assessment/Plan: He was admitted with multiple falls. Increasing psychosis. To the point he became catatonic. He has now been here over 35 days. There has been remarkable and positive improvement. Most of the change came from resuming his Risperdal 3 mg twice daily, and adding a benzodiazepine for the catatonia. His psychiatrist let us know that they have been working on permanent placement for him. Its been slow going. He was living with his girlfriend/caregiver. Caregiver burden has been too difficult for her recently. We now have DPOA with his daughter. Daughter is amenable to having him placed. At this time we are awaiting for an adult family home to finalize all the paperwork. Social work, case management are working to get the details together. On 03/21, I sat with the patient to discuss his wishes and to complete a POLST form, which was accomplished. Otherwise there is no new information for this patient. No orders written today All of his problems have been resolved or stable for weeks as we wait for placement. (2) No able caregiver in household Assessment/Plan: He was living with his girlfriend/caregiver. Caregiver burden has been too difficult for her recently, and she had to leave him unaccompanied at night, when she worked. There was a [place] [facility] him, but that bed could not be held any longer. SW is continuing to arrange for dch to a safe location On 04/10, he had an interview with a facility. Today they want to know if he can ambulate stairs Plan: Permanent placement is being worked on by our rn social services, working with his daughter who is now the DPOA. Will order OT to evaluate and document how he handles walking stairs. (3) Chronic psychosis still present. He is still hallucinating at times. But much more controllable. (4) Chronic kidney disease. Acute kidney injury has resolved in the face of rhabdomyolysis and many falls. His creat of 1.3-1.4 is his new baseline. P atient has been at baseline since approximately February 19. He has no longer needed IV fluids. (5) Type 2 diabetes mellitus, controlled. A1c was 6.3%. He is eating 100% of his meals. Metformin resumed February 22. Glucose is controlled. We stopped fingerstick checks at [facility] many days ago. (6) Rectal fissures or abrasions. Part of his psychosis is that aliens or Indians are shoving things in his rectum. He would use his fingers to manually disimpact himself. He gave himself the rectal cuts. He still says that those things that are tucked into his rectum and sometimes speak to him. But he is having less and less agitation with this. (7) Falls at home. Unclear why he kept on falling. He was not intoxicated. No seizures, no syncope. No orthostasis. Not under the influence of any recreational substance, however we suspect he got Suboxone patch haphazardly. His last prescription was written a year ago and it was ordered for 13 weeks. However there were still several patches available in a box that his caregiver brought from home. so we suspect he was intermittently oversedated on his buprenorphine patch, so we stopped the patch entirely and he has had no pain complaints. Here he is now walking with a walker and does so on a regular basis. He did have 1 fall in the hospital where he was leaning forward and he started going toward the floor and the nurse pushed him back. (8) Abrasions of multiple sites due to frequent falls. Photographs taken by nursing. These have all healed. (9) Poor hygiene on admission. He is taking showers here on a more regular basis. (10) Abnormal EKG. Echo was done to make sure he did not have cor pulmonale and Echo was normal. (11) Left arm swelling. Duplex Doppler - February 18 ws neg (12) Right third toe infection. Resolved. Completed Keflex February 28. (13) Rhabdomyolysis This was from the falls and has resolved. (14) Catatonia has resolved after restarting Risperdal 3 mg twice daily, and adding a Benzodiazepine. - Current Meds Current Meds: Current Medications Generic Name Dose Route Start Last Admin Trade Name Freq PRN Reason Stop Dose Admin Acetaminophen 650 mg 02/15/23 19:57 04/08/23 07:58 Acetaminophen 325 Mg Tablet PO 650 mg Q4HR PRN Administration Pain or Fever > 38C (100.4F) Aspirin 81 mg 02/18/23 09:00 04/11/23 08:04 Aspirin Ec 81 Mg Tablet PO 81 mg DAILY ANGELA Administration Docusate Sodium 250 - 500 mg 02/26/23 17:00 04/11/23 08:04 Docusate Sodium 250 Mg Capsule PO Not Given BID ANGELA Duloxetine HCl 30 mg 02/15/23 13:30 04/11/23 08:04 Duloxetine 30 Mg Capsule PO 30 mg DAILY ANGELA Administration Fluticasone Propionate 1 sprays 02/17/23 09:00 04/11/23 08:03 Fluticasone Nasal [place] CRISTIAN 1 spray DAILY ANGELA Administration Haloperidol 2 mg 02/22/23 13:06 02/26/23 14:41 Haloperidol 5 Mg/Ml Vial IM 2 mg DAILY PRN Administration Agitation Ibuprofen 600 mg 02/15/23 19:57 03/03/23 20:57 Ibuprofen 600 Mg Tablet PO 600 mg Q6HR PRN Administration MINOR PAIN Lidocaine HCl 1 ml 02/23/23 13:54 02/26/23 13:59 Lidocaine Jelly 2% 6 Ml Jel.Pf.Shanda TOP 1 ml TID PRN Administration anal itching pain Lorazepam 0.5 mg 02/21/23 21:00 04/11/23 08:04 Lorazepam 0.5 Mg Tablet SL 0.5 mg BID ANGELA Administration Magnesium Oxide 400 mg 02/16/23 08:00 04/11/23 08:04 Magnesium Oxide 400 Mg Tablet PO 400 mg DAILYWM ANGELA Administration Metformin HCl 1,000 mg 03/17/23 17:00 04/11/23 17:08 Metformin 500 Mg Tablet PO 1,000 mg 0800,1700 ANGELA Administration Multivitamins/Minerals 1 tab 02/18/23 09:00 04/11/23 08:04 Multivitamin W/Minerals Tablet PO 1 tab DAILYWM ANGELA Administration Olanzapine 5 mg 02/23/23 21:00 04/11/23 08:04 Olanzapine Odt 5 Mg Tablet TL 5 mg BID ANGELA Administration Polyethylene Glycol 17 gm 02/17/23 18:00 04/11/23 11:10 Polyethylene Glycol 3350 17 Gm Packet PO Not Given DAILY ANGELA Senna 8.6 - 17.2 mg 02/26/23 17:00 04/11/23 11:10 Senna 8.6 Mg Tablet PO Not Given BID ANGELA - Lab Result Fish Bone Diagrams: 03/12/23 04:23 04/03/23 13:17 - Additional Planning My Orders: My Active Orders 04/11/23 Evaluate and Treat OT [OT] Routine Subjective - Subjective Patient Reports: No Complaints Objective Vital Signs: Vital Signs - 24 hr 04/11/23 08:49 Temperature 36.3 C L Heart Rate [ 70 Brachial] Respiratory 16 Rate Blood Pressure 119/59 L [Left Radial artery] O2 Saturation 94 Oxygen O2 Source Room air I&O (Last 24 Hrs): Intake and Output Totals x24h 04/09/23 04/10/23 04/11/23 23:59 23:59 23:59 Intake Total 1920 1216 862 Balance 1919 1216 862 General: Alert, No acute distress Neuro: Alert, Non Focal Cardiovascular: Regular rate Respiratory: No respiratory distress Extremities: No clubbing, No edema - Results Results: Laboratory Results WBC 10.0 x10^3/uL (4.8-10.8) 03/12/23 04:23 RBC 4.22 10^6/uL (4.70-6.10) L 03/12/23 04: Hgb 12.6 g/dL (14.0-18.0) L 03/12/23 04:23 Hct 37.4 % (42.0-52.0) L 03/12/23 04:23 MCV 88.6 fL (80.0-94.0) 03/12/23 04:23 MCH 29.9 pg (27.0-31.0) 03/12/23 04:23 MCHC 33.7 g/dL (32.0-36.0) 03/12/23 04: RDW 12.8 % (12.0-15.0) 03/12/23 04:23 Plt Count 309 10^3/uL (130-450) 03/12/23 04:23 MPV 9.6 fL (7.4-11.4) 03/12/23 04:23 Neut # (Auto) 4.1 10^3/uL (1.5-6.6) 03/05/23 05:20 Lymph # (Auto) 2.8 10^3/uL (1.5-3.5) 03/05/23 05:20 [place] # (Auto) 0.6 10^3/uL (0.0-1.0) 03/05/23 05:20 Eos # (Auto) 0.3 10^3/uL (0.0-0.7) 03/05/23 05:20 Baso # (Auto) 0.0 10^3/uL (0.0-0.1) 03/05/23 05:20 Absolute Nucleated RBC 0.00 x10^3/uL 03/05/23 05:20 Total Counted 100 02/14/23 03:15 Band Neuts % (Manual) 9 % (0-10) 02/14/23 03:15 Abnorm Lymph % (Manual) 0 % 02/14/23 03:15 Nucleated RBC % 0.0 /100WBC 03/05/23 05:20 Neutrophils # (Manual) 18.2 10^3/uL (1.5-6.6) H 02/14/23 03:15 Lymphocytes # (Manual) 1.0 10^3/uL (1.5-3.5) L 02/14/23 03:15 Monocytes # (Manual) 1.2 10^3/uL (0.0-1.0) H 02/14/23 03:15 Eosinophils # (Manual) 0.0 10^3/uL (0-0.7) 02/14/23 03:15 Basophils # (Manual) 0.0 10^3/uL (0-0.1) 02/14/23 03:15 Differential Comment MANUAL DIFFERENTIAL 02/14/23 03:15 Sodium 139 mmol/L (135-145) 04/03/23 13:17 Potassium 4.1 mmol/L (3.5-5.0) 04/03/23 13:17 Chloride 101 mmol/L (101-111) 04/03/23 13:17 Carbon Dioxide 25 mmol/L (21-32) 04/03/23 13:17 Anion Gap 13.0 (6-13) 04/03/23 13:17 BUN 25 mg/dL (6-20) H 04/03/23 13:17 Creatinine 1.4 mg/dL (0.6-1.2) H 04/03/23 13:17 Estimated GFR (MDRD) 52 (>89) L 04/03/23 13:17 Glucose 138 mg/dL (70-100) H 04/03/23 13:17 POC Whole Bld Glucose 103 mg/dL (70 - 100) H 03/14/23 07:38 Estimat Average Glucose 134 mg/dL (70-100) H 02/15/23 05:20 Hemoglobin A1c % 6.3 % (4.27-6.07) H 02/15/23 05:20 Calcium 9.6 mg/dL (8.5-10.3) 04/03/23 13:17 Magnesium 1.5 mg/dL (1.7-2.8) L 02/17/23 05:35 Total Bilirubin 0.3 mg/dL (0.2-1.0) 03/03/23 04:48 AST 25 IU/L (10-42) 03/03/23 04:48 ALT 33 IU/L (10-60) 03/03/23 04:48 Alkaline Phosphatase 77 IU/L (42-121) 03/03/23 04:48 Total Creatine Kinase 440 IU/L (22-269) H 02/23/23 14:10 CK-MB (CK-2) 265.9 ng/mL (0.6-6.3) H 02/14/23 03:15 Total Protein 7.2 g/dL (6.7-8.2) 03/03/23 04:48 Albumin 4.0 g/dL (3.2-5.5) 03/03/23 04:48 Globulin 3.2 g/dL (2.1-4.2) 03/03/23 04:48 Albumin/Globulin Ratio 1.3 (1.0-2.2) 03/03/23 04:48 Lipase 34 U/L (22-51) 02/14/23 03:15 TSH 1.21 uIU/mL (0.34-5.60) 02/14/23 03:15 Urine Color YELLOW 02/18/23 15:10 Urine Clarity CLEAR (CLEAR) 02/18/23 15:10 Urine pH 5.5 PH (5.0-7.5) 02/18/23 15:10 Ur Specific [place] 1.020 (1.002-1.030) 02/18/23 15:10 Urine Protein NEGATIVE mg/dL (NEGATIVE) 02/18/23 15:10 Urine Glucose (UA) NEGATIVE mg/dL (NEGATIVE) 02/18/23 15:10 Urine Ketones NEGATIVE mg/dL (NEGATIVE) 02/18/23 15:10 Urine Occult Blood MODERATE (NEGATIVE) H 02/18/23 15:10 Urine Nitrite NEGATIVE (NEGATIVE) 02/18/23 15:10 Urine Bilirubin NEGATIVE (NEGATIVE) 02/18/23 15:10 Urine Urobilinogen 0.2 (NORMAL) E.U./dL (NORMAL) 02/18/23 15:10 Ur Leukocyte Esterase TRACE (NEGATIVE) H 02/18/23 15:10 Urine RBC 11-25 /HPF (0-5) H 02/18/23 15:10 Urine WBC 6-10 /HPF (0-3) H 02/18/23 15:10 Ur Squamous Epith Cells RARE Squamous (<= Few) 02/18/23 15:10 Urine Bacteria None Seen /HPF (None Seen) 02/18/23 15:10 Urine Sperm PRESENT 02/18/23 15:10 Ur Microscopic Review INDICATED 02/14/23 10:34 Urine Culture Comments INDICATED 02/18/23 15:10 Urine Opiates Screen NEGATIVE (NEGATIVE) 02/14/23 10:34 Ur Oxycodone Screen NEGATIVE (NEGATIVE) 02/14/23 10:34 Urine Methadone Screen NEGATIVE (NEGATIVE) 02/14/23 10:34 Ur Propoxyphene Screen NEGATIVE (NEGATIVE) 02/14/23 10:34 Ur Barbiturates Screen NEGATIVE (NEGATIVE) 02/14/23 10:34 Ur Tricyclics Screen NEGATIVE (NEGATIVE) 02/14/23 10:34 Ur Phencyclidine Scrn NEGATIVE (NEGATIVE) 02/14/23 10:34 Ur Amphetamine Screen NEGATIVE (NEGATIVE) 02/14/23 10:34 U Methamphetamines Scrn NEGATIVE (NEGATIVE) 02/14/23 10:34 U Benzodiazepines Scrn NEGATIVE (NEGATIVE) 02/14/23 10:34 Urine Cocaine Screen NEGATIVE (NEGATIVE) 02/14/23 10:34 U Cannabinoids Screen POSITIVE (NEGATIVE) H 02/14/23 10:34 Ethyl Alcohol < 5.0 mg/dL 02/14/23 03:15
[2023-04-11] MEDS: ACETAMINOPHEN 325 MG TABLET PO PRN (21:20)
[2023-04-12] MEDS: DOCUSATE SODIUM 250 MG CAPSULE PO SCH ×2 (08:29→21:19)
[2023-04-12] MEDS: MAGNESIUM OXIDE 400 MG TABLET PO SCH (08:29)
[2023-04-12] MEDS: ASPIRIN EC 81 MG TABLET PO SCH (08:29)
[2023-04-12] MEDS: SENNA 8.6 MG TABLET PO SCH ×2 (08:29→21:19)
[2023-04-12] MEDS: metFORMIN 500 MG TABLET PO SCH ×2 (08:30→16:28)
[2023-04-12] MEDS: DULoxetine 30 MG CAPSULE PO SCH (08:30)
[2023-04-12] MEDS: MULTIVITAMIN W/MINERALS TABLET PO SCH (08:30)
[2023-04-12] MEDS: OLANZapine ODT 5 MG TABLET TL SCH ×2 (08:30→21:21)
[2023-04-12] MEDS: LORazepam 0.5 MG TABLET SL SCH ×2 (08:30→21:21)
[2023-04-12] MEDS: FLUTICASONE NASAL SPRAY NAS SCH (08:30)
[2023-04-12] MEDS: polyethylene glycoL 3350 17 GM PACKET PO SCH (08:31)
[2023-04-12] MEDS: ACETAMINOPHEN 325 MG TABLET PO PRN ×2 (16:28→21:20)
[2023-04-13] MEDS: ACETAMINOPHEN 325 MG TABLET PO PRN ×2 (08:25→14:12)
[2023-04-13] MEDS: DULoxetine 30 MG CAPSULE PO SCH (08:26)
[2023-04-13] MEDS: metFORMIN 500 MG TABLET PO SCH ×2 (08:26→16:57)
[2023-04-13] MEDS: LORazepam 0.5 MG TABLET SL SCH ×2 (08:27→20:14)
[2023-04-13] MEDS: DOCUSATE SODIUM 250 MG CAPSULE PO SCH ×2 (08:27→20:12)
[2023-04-13] MEDS: polyethylene glycoL 3350 17 GM PACKET PO SCH (08:27)
[2023-04-13] MEDS: SENNA 8.6 MG TABLET PO SCH ×2 (08:27→20:12)
[2023-04-13] MEDS: MAGNESIUM OXIDE 400 MG TABLET PO SCH (08:27)
[2023-04-13] MEDS: OLANZapine ODT 5 MG TABLET TL SCH ×2 (08:27→20:14)
[2023-04-13] MEDS: ASPIRIN EC 81 MG TABLET PO SCH (08:27)
[2023-04-13] MEDS: MULTIVITAMIN W/MINERALS TABLET PO SCH (08:27)
[2023-04-13] MEDS: FLUTICASONE NASAL SPRAY NAS SCH (08:28)
--- NOTE | 2023-04-13 14:04 | PROVIDER PROGRESS NOTE ---
Assessment/Plan - Problem List (1) Major depressive disorder, recurrent, severe with psychotic symptoms Assessment/Plan: He was admitted with multiple falls. Increasing psychosis. To the point he became catatonic. He has now been here over 35 days. There has been remarkable and positive improvement. Most of the change came from resuming his Risperdal 3 mg twice daily, and adding a benzodiazepine for the catatonia. His psychiatrist let us know that they have been working on permanent placement for him. Its been slow going. He was living with his girlfriend/caregiver. Caregiver burden has been too difficult for her recently. We now have DPOA with his daughter. Daughter is amenable to having him placed. At this time we are awaiting for an adult family home to finalize all the paperwork. Social work, case management are working to get the details together. On 03/21, I sat with the patient to discuss his wishes and to complete a POLST form, which was accomplished. Otherwise there is no new information for this patient. No orders written today All of his problems have been resolved or stable for weeks as we wait for placement. (2) No able caregiver in household Assessment/Plan: He was living with his girlfriend/caregiver. Caregiver burden has been too difficult for her recently, and she had to leave him unaccompanied at night, when she worked. There was a care home that could take him, but that bed could not be held any longer. SW is continuing to arrange for dch to a safe location On 04/10, he had an interview with a facility. They want to know if he can ambulate stairs Plan: Permanent placement is being worked on by our social work instructor, working with his daughter who is now the DPOA. Today he was excepted at a center, they cannot take him till Sunday 04/15 (3) Chronic psychosis still present. He is still hallucinating at times. But much more controllable. (4) Chronic kidney disease. Acute kidney injury has resolved in the face of rhabdomyolysis and many falls. His creat of 1.3-1.4 is his new baseline. Rhona ent has been at baseline since approximately February 19. He has no longer needed IV fluids. (5) Type 2 diabetes mellitus, controlled. A1c was 6.3%. He is eating 100% of his meals. Metformin resumed February 22. Glucose is controlled. We stopped fingerstick checks at [facility] many days ago. (6) Rectal fissures or abrasions. Part of his psychosis is that aliens or Indians are shoving things in his rectum. He would use his fingers to manually disimpact himself. He gave himself the rectal cuts. He still says that those things that are tucked into his rectum and sometimes speak to him. But he is having less and less agitation with this. (7) Falls at home. Unclear why he kept on falling. He was not intoxicated. No seizures, no syncope. No orthostasis. Not under the influence of any recreational substance, however we suspect he got Suboxone patch haphazardly. His last prescription was written a year ago and it was ordered for 13 weeks. However there were still several patches available in a box that his caregiver brought from home. so we suspect he was intermittently oversedated on his buprenorphine patch, so we stopped the patch entirely and he has had no pain complaints. Here he is now walking with a walker and does so on a regular basis. He did have 1 fall in the hospital where he was leaning forward and he started going toward the floor and the nurse pushed him back. (8) Abrasions of multiple sites due to frequent falls. Photographs taken by nursing. These have all healed. (9) Poor hygiene on admission. He is taking showers here on a more regular basis. (10) Abnormal EKG. Echo was done to make sure he did not have cor pulmonale and Echo was normal. (11) Left arm swelling. Duplex Doppler - February 18 ws neg (12) Right third toe infection. Resolved. Completed Keflex February 28. (13) Rhabdomyolysis This was from the falls and has resolved. (14) Catatonia has resolved after restarting Risperdal 3 mg twice daily, and adding a Benzodiazepine. - Current Meds Current Meds: Current Medications Generic Name Dose Route Start Last Admin Trade Name Freq PRN Reason Stop Dose Admin Acetaminophen 650 mg 02/15/23 19:57 04/13/23 08:25 Acetaminophen 325 Mg Tablet PO 650 mg Q4HR PRN Administration Pain or Fever > 38C (100.4F) Aspirin 81 mg 02/18/23 09:00 04/13/23 08:27 Aspirin Ec 81 Mg Tablet PO 81 mg DAILY ANGELA Administration Docusate Sodium 250 - 500 mg 02/26/23 17:00 04/13/23 08:27 Docusate Sodium 250 Mg Capsule PO 250 mg BID ANGELA Administration Duloxetine HCl 30 mg 02/15/23 13:30 04/13/23 08:26 Duloxetine 30 Mg Capsule PO 30 mg DAILY ANGELA Administration Fluticasone Propionate 1 sprays 02/17/23 09:00 04/13/23 08:28 Fluticasone Nasal [place] CRISTIAN 1 spray DAILY ANGELA Administration Haloperidol 2 mg 02/22/23 13:06 02/26/23 14:41 Haloperidol 5 Mg/Ml Vial IM 2 mg DAILY PRN Administration Agitation Ibuprofen 600 mg 02/15/23 19:57 03/03/23 20:57 Ibuprofen 600 Mg Tablet PO 600 mg Q6HR PRN Administration MINOR PAIN Lidocaine HCl 1 ml 02/23/23 13:54 02/26/23 13:59 Lidocaine Jelly 2% 6 Ml Jel.Pf.Shanda TOP 1 ml TID PRN Administration anal itching pain Lorazepam 0.5 mg 02/21/23 21:00 04/13/23 08:27 Lorazepam 0.5 Mg Tablet SL 0.5 mg BID ANGELA Administration Magnesium Oxide 400 mg 02/16/23 08:00 04/13/23 08:27 Magnesium Oxide 400 Mg Tablet PO 400 mg DAILYWM ANGELA Administration Metformin HCl 1,000 mg 03/17/23 17:00 04/13/23 08:26 Metformin 500 Mg Tablet PO 1,000 mg 0800,1700 ANGELA Administration Multivitamins/Minerals 1 tab 02/18/23 09:00 04/13/23 08:27 Multivitamin W/Minerals Tablet PO 1 tab DAILYWM ANGELA Administration Olanzapine 5 mg 02/23/23 21:00 04/13/23 08:27 Olanzapine Odt 5 Mg Tablet TL 5 mg BID ANGELA Administration Polyethylene Glycol 17 gm 02/17/23 18:00 04/13/23 08:27 Polyethylene Glycol 3350 17 Gm Packet PO 17 gm DAILY ANGELA Administration Senna 8.6 - 17.2 mg 02/26/23 17:00 04/13/23 08:27 Senna 8.6 Mg Tablet PO 8.6 mg BID ANGELA Administration - Lab Result Fish Bone Diagrams: 03/12/23 04:23 04/03/23 13:17 Subjective - Subjective Patient Reports: No Complaints Objective Vital Signs: Vital Signs - 24 hr 04/12/23 04/13/23 15:06 08:54 Temperature 36.2 C L 36.2 C L Heart Rate [ 69 62 Brachial] Respiratory 18 18 Rate Blood Pressure 108/55 L 99/53 L [Left Radial artery] O2 Saturation 95 94 Oxygen O2 Source Room air I&O (Last 24 Hrs): Intake and Output Totals x24h 04/11/23 04/12/23 04/13/23 23:59 23:59 23:59 Intake Total 1398 1560 1377 Balance 1398 1560 1377 General: Alert, Oriented x3 HEENT: Mucous membr. moist/pink Neck: Supple Neuro: Alert, Non Focal Cardiovascular: Regular rate Respiratory: No respiratory distress Abdomen: No tenderness Extremities: No clubbing, No edema - Results Results: Laboratory Results WBC 10.0 x10^3/uL (4.8-10.8) 03/12/23 04: RBC 4.22 10^6/uL (4.70-6.10) L 03/12/23 04:23 Hgb 12.6 g/dL (14.0-18.0) L 03/12/23 04:23 Hct 37.4 % (42.0-52.0) L 03/12/23 04:23 MCV 88.6 fL (80.0-94.0) 03/12/23 04:23 MCH 29.9 pg (27.0-31.0) 03/12/23 04: MCHC 33.7 g/dL (32.0-36.0) 03/12/23 04:23 RDW 12.8 % (12.0-15.0) 03/12/23 04:23 Plt Count 309 10^3/uL (130-450) 03/12/23 04:23 MPV 9.6 fL (7.4-11.4) 03/12/23 04:23 Neut # (Auto) 4.1 10^3/uL (1.5-6.6) 03/05/23 05:20 Lymph # (Auto) 2.8 10^3/uL (1.5-3.5) 03/05/23 05:20 [place] # (Auto) 0.6 10^3/uL (0.0-1.0) 03/05/23 05:20 Eos # (Auto) 0.3 10^3/uL (0.0-0.7) 03/05/23 05:20 Baso # (Auto) 0.0 10^3/uL (0.0-0.1) 03/05/23 05:20 Absolute Nucleated RBC 0.00 x10^3/uL 03/05/23 05:20 Total Counted 100 02/14/23 03:15 Band Neuts % (Manual) 9 % (0-10) 02/14/23 03:15 Abnorm Lymph % (Manual) 0 % 02/14/23 03:15 Nucleated RBC % 0.0 /100WBC 03/05/23 05:20 Neutrophils # (Manual) 18.2 10^3/uL (1.5-6.6) H 02/14/23 03:15 Lymphocytes # (Manual) 1.0 10^3/uL (1.5-3.5) L 02/14/23 03:15 Monocytes # (Manual) 1.2 10^3/uL (0.0-1.0) H 02/14/23 03:15 Eosinophils # (Manual) 0.0 10^3/uL (0-0.7) 02/14/23 03:15 Basophils # (Manual) 0.0 10^3/uL (0-0.1) 02/14/23 03:15 Differential Comment MANUAL DIFFERENTIAL 02/14/23 03:15 Sodium 139 mmol/L (135-145) 04/03/23 13:17 Potassium 4.1 mmol/L (3.5-5.0) 04/03/23 13:17 Chloride 101 mmol/L (101-111) 04/03/23 13:17 Carbon Dioxide 25 mmol/L (21-32) 04/03/23 13:17 Anion Gap 13.0 (6-13) 04/03/23 13:17 BUN 25 mg/dL (6-20) H 04/03/23 13:17 Creatinine 1.4 mg/dL (0.6-1.2) H 04/03/23 13:17 Estimated GFR (MDRD) 52 (>89) L 04/03/23 13:17 Glucose 138 mg/dL (70-100) H 04/03/23 13:17 POC Whole Bld Glucose 103 mg/dL (70 - 100) H 03/14/23 07:38 Estimat Average Glucose 134 mg/dL (70-100) H 02/15/23 05:20 Hemoglobin A1c % 6.3 % (4.27-6.07) H 02/15/23 05:20 Calcium 9.6 mg/dL (8.5-10.3) 04/03/23 13:17 Magnesium 1.5 mg/dL (1.7-2.8) L 02/17/23 05:35 Total Bilirubin 0.3 mg/dL (0.2-1.0) 03/03/23 04:48 AST 25 IU/L (10-42) 03/03/23 04:48 ALT 33 IU/L (10-60) 03/03/23 04:48 Alkaline Phosphatase 77 IU/L (42-121) 03/03/23 04:48 Total Creatine Kinase 440 IU/L (22-269) H 02/23/23 14:10 CK-MB (CK-2) 265.9 ng/mL (0.6-6.3) H 02/14/23 03:15 Total Protein 7.2 g/dL (6.7-8.2) 03/03/23 04:48 Albumin 4.0 g/dL (3.2-5.5) 03/03/23 04:48 Globulin 3.2 g/dL (2.1-4.2) 03/03/23 04:48 Albumin/Globulin Ratio 1.3 (1.0-2.2) 03/03/23 04:48 Lipase 34 U/L (22-51) 02/14/23 03:15 TSH 1.21 uIU/mL (0.34-5.60) 02/14/23 03:15 Urine Color YELLOW 02/18/23 15:10 Urine Clarity CLEAR (CLEAR) 02/18/23 15:10 Urine pH 5.5 PH (5.0-7.5) 02/18/23 15:10 Ur Specific [place] 1.020 (1.002-1.030) 02/18/23 15:10 Urine Protein NEGATIVE mg/dL (NEGATIVE) 02/18/23 15:10 Urine Glucose (UA) NEGATIVE mg/dL (NEGATIVE) 02/18/23 15:10 Urine Ketones NEGATIVE mg/dL (NEGATIVE) 02/18/23 15:10 Urine Occult Blood MODERATE (NEGATIVE) H 02/18/23 15:10 Urine Nitrite NEGATIVE (NEGATIVE) 02/18/23 15:10 Urine Bilirubin NEGATIVE (NEGATIVE) 02/18/23 15:10 Urine Urobilinogen 0.2 (NORMAL) E.U./dL (NORMAL) 02/18/23 15:10 Ur Leukocyte Esterase TRACE (NEGATIVE) H 02/18/23 15:10 Urine RBC 11-25 /HPF (0-5) H 02/18/23 15:10 Urine WBC 6-10 /HPF (0-3) H 02/18/23 15:10 Ur Squamous Epith Cells RARE Squamous (<= Few) 02/18/23 15:10 Urine Bacteria None Seen /HPF (None Seen) 02/18/23 15:10 Urine Sperm PRESENT 02/18/23 15:10 Ur Microscopic Review INDICATED 02/14/23 10:34 Urine Culture Comments INDICATED 02/18/23 15:10 Urine Opiates Screen NEGATIVE (NEGATIVE) 02/14/23 10:34 Ur Oxycodone Screen NEGATIVE (NEGATIVE) 02/14/23 10:34 Urine Methadone Screen NEGATIVE (NEGATIVE) 02/14/23 10:34 Ur Propoxyphene Screen NEGATIVE (NEGATIVE) 02/14/23 10:34 Ur Barbiturates Screen NEGATIVE (NEGATIVE) 02/14/23 10:34 Ur Tricyclics Screen NEGATIVE (NEGATIVE) 02/14/23 10:34 Ur Phencyclidine Scrn NEGATIVE (NEGATIVE) 02/14/23 10:34 Ur Amphetamine Screen NEGATIVE (NEGATIVE) 02/14/23 10:34 U Methamphetamines Scrn NEGATIVE (NEGATIVE) 02/14/23 10:34 U Benzodiazepines Scrn NEGATIVE (NEGATIVE) 02/14/23 10:34 Urine Cocaine Screen NEGATIVE (NEGATIVE) 02/14/23 10:34 U Cannabinoids Screen POSITIVE (NEGATIVE) H 02/14/23 10:34 Ethyl Alcohol < 5.0 mg/dL 02/14/23 03:15
--- NOTE | 2023-04-13 14:05 | PROVIDER PROGRESS NOTE ---
Assessment/Plan - Problem List (1) Major depressive disorder, recurrent, severe with psychotic symptoms Assessment/Plan: He was admitted with multiple falls. Increasing psychosis. To the point he became catatonic. He has now been here over 35 days. There has been remarkable and positive improvement. Most of the change came from resuming his Risperdal 3 mg twice daily, and adding a benzodiazepine for the catatonia. His psychiatrist let us know that they have been working on permanent placement for him. Its been slow going. He was living with his girlfriend/caregiver. Caregiver burden has been too difficult for her recently. We now have DPOA with his daughter. Daughter is amenable to having him placed. At this time we are awaiting for an adult family home to finalize all the paperwork. Social work, case management are working to get the details together. On 03/21, I sat with the patient to discuss his wishes and to complete a POLST form, which was accomplished. Otherwise there is no new information for this patient. No orders written today All of his problems have been resolved or stable for weeks as we wait for placement. (2) No able caregiver in household Assessment/Plan: He was living with his girlfriend/caregiver. Caregiver burden has been too difficult for her recently, and she had to leave him unaccompanied at night, when she worked. There was a long term that could take him, but that bed could not be held any longer. SW is continuing to arrange for dch to a safe location On 04/10, he had an interview with a facility. They want to know if he can ambulate stairs Plan: Permanent placement is being worked on by our social science research assistant, working with his daughter who is now the DPOA. On 04/12 he was excepted at a center, but they cannot take him until Sunday 04/15 (3) Chronic psychosis still present. He is still hallucinating at times. But much more controllable. (4) Chronic kidney disease. Acute kidney injury has resolved in the face of rhabdomyolysis and many falls. His creat of 1.3-1.4 is his new baseline. Patient has been at baseline since approximately February 19. He has no longer needed IV fluids. (5) Type 2 diabetes mellitus, controlled. A1c was 6.3%. He is eating 100% of his meals. Metformin resumed February 22. Glucose is controlled. We stopped fingerstick checks at [facility] many days ago. (6) Rectal fissures or abrasions. Part of his psychosis is that aliens or Indians are shoving things in his rectum. He would use his fingers to manually disimpact himself. He gave himself the rectal cuts. He still says that those things that are tucked into his rectum and sometimes speak to him. But he is having less and less agitation with this. (7) Falls at home. Unclear why he kept on falling. He was not intoxicated. No seizures, no syncope. No orthostasis. Not under the influence of any recreational substance, however we suspect he got Suboxone patch haphazardly. His last prescription was written a year ago and it was ordered for 13 weeks. However there were still several patches available in a box that his caregiver brought from home. so we suspect he was intermittently oversedated on his buprenorphine patch, so we stopped the patch entirely and he has had no pain complaints. Here he is now walking with a walker and does so on a regular basis. He did have 1 fall in the hospital where he was leaning forward and he started going toward the floor and the nurse pushed him back. (8) Abrasions of multiple sites due to frequent falls. Photographs taken by nursing. These have all healed. (9) Poor hygiene on admission. He is taking showers here on a more regular basis. (10) Abnormal EKG. Echo was done to make sure he did not have cor pulmonale and Echo was normal. (11) Left arm swelling. Duplex Doppler - February 18 ws neg (12) Right third toe infection. Resolved. Completed Keflex February 28. (13) Rhabdomyolysis This was from the falls and has resolved. (14) Catatonia has resolved after restarting Risperdal 3 mg twice daily, and adding a Benzodiazepine. - Current Meds Current Meds: Current Medications Generic Name Dose Route Start Last Admin Trade Name Freq PRN Reason Stop Dose Admin Acetaminophen 650 mg 02/15/23 19:57 04/13/23 08:25 Acetaminophen 325 Mg Tablet PO 650 mg Q4HR PRN Administration Pain or Fever > 38C (100.4F) Aspirin 81 mg 02/18/23 09:00 04/13/23 08:27 Aspirin Ec 81 Mg Tablet PO 81 mg DAILY ANGELA Administration Docusate Sodium 250 - 500 mg 02/26/23 17:00 04/13/23 08:27 Docusate Sodium 250 Mg Capsule PO 250 mg BID ANGELA Administration Duloxetine HCl 30 mg 02/15/23 13:30 04/13/23 08:26 Duloxetine 30 Mg Capsule PO 30 mg DAILY ANGELA Administration Fluticasone Propionate 1 sprays 02/17/23 09:00 04/13/23 08:28 Fluticasone Nasal [place] CRISTIAN 1 spray DAILY ANGELA Administration Haloperidol 2 mg 02/22/23 13:06 02/26/23 14:41 Haloperidol 5 Mg/Ml Vial IM 2 mg DAILY PRN Administration Agitation Ibuprofen 600 mg 02/15/23 19:57 03/03/23 20:57 Ibuprofen 600 Mg Tablet PO 600 mg Q6HR PRN Administration MINOR PAIN Lidocaine HCl 1 ml 02/23/23 13:54 02/26/23 13:59 Lidocaine Jelly 2% 6 Ml Jel.Pf.Shanda TOP 1 ml TID PRN Administration anal itching pain Lorazepam 0.5 mg 02/21/23 21:00 04/13/23 08:27 Lorazepam 0.5 Mg Tablet SL 0.5 mg BID ANGELA Administration Magnesium Oxide 400 mg 02/16/23 08:00 04/13/23 08:27 Magnesium Oxide 400 Mg Tablet PO 400 mg DAILYWM ANGELA Administration Metformin HCl 1,000 mg 03/17/23 17:00 04/13/23 08:26 Metformin 500 Mg Tablet PO 1,000 mg 0800,1700 ANGELA Administration Multivitamins/Minerals 1 tab 02/18/23 09:00 04/13/23 08:27 Multivitamin W/Minerals Tablet PO 1 tab DAILYWM ANGELA Administration Olanzapine 5 mg 02/23/23 21:00 04/13/23 08:27 Olanzapine Odt 5 Mg Tablet TL 5 mg BID ANGELA Administration Polyethylene Glycol 17 gm 02/17/23 18:00 04/13/23 08:27 Polyethylene Glycol 3350 17 Gm Packet PO 17 gm DAILY AGNELA Administration Senna 8.6 - 17.2 mg 02/26/23 17:00 04/13/23 08:27 Senna 8.6 Mg Tablet PO 8.6 mg BID ANGELA Administration - Lab Result Fish Bone Diagrams: 03/12/23 04:23 04/03/23 13:17 Subjective - Subjective Patient Reports: No Complaints Objective Vital Signs: Vital Signs - 24 hr 04/12/23 04/13/23 15:06 08:54 Temperature 36.2 C L 36.2 C L Heart Rate [ 69 62 Brachial] Respiratory 18 18 Rate Blood Pressure 108/55 L 99/53 L [Left Radial artery] O2 Saturation 95 94 Oxygen O2 Source Room air I&O (Last 24 Hrs): Intake and Output Totals x24h 04/11/23 04/12/23 04/13/23 23:59 23:59 23:59 Intake Total 1398 1560 1377 Balance 1398 1560 1377 General: Alert, Oriented x3 HEENT: Mucous membr. moist/pink Neck: Supple Neuro: Non Focal Cardiovascular: Regular rate Respiratory: No respiratory distress Extremities: No clubbing, No edema, No tenderness/swelling - Results Results: Laboratory Results WBC 10.0 x10^3/uL (4.8-10.8) 03/12/23 04: RBC 4.22 10^6/uL (4.70-6.10) L 03/12/23 04:23 Hgb 12.6 g/dL (14.0-18.0) L 03/12/23 04:23 Hct 37.4 % (42.0-52.0) L 03/12/23 04:23 MCV 88.6 fL (80.0-94.0) 03/12/23 04:23 MCH 29.9 pg (27.0-31.0) 03/12/23 04:23 MCHC 33.7 g/dL (32.0-36.0) 03/12/23 04:23 RDW 12.8 % (12.0-15.0) 03/12/23 04:23 Plt Count 309 10^3/uL (130-450) 03/12/23 04:23 MPV 9.6 fL (7.4-11.4) 03/12/23 04:23 Neut # (Auto) 4.1 10^3/uL (1.5-6.6) 03/05/23 05:20 Lymph # (Auto) 2.8 10^3/uL (1.5-3.5) 03/05/23 05:20 [place] # (Auto) 0.6 10^3/uL (0.0-1.0) 03/05/23 05:20 Eos # (Auto) 0.3 10^3/uL (0.0-0.7) 03/05/23 05:20 Baso # (Auto) 0.0 10^3/uL (0.0-0.1) 03/05/23 05:20 Absolute Nucleated RBC 0.00 x10^3/uL 03/05/23 05:20 Total Counted 100 02/14/23 03:15 Band Neuts % (Manual) 9 % (0-10) 02/14/23 03:15 Abnorm Lymph % (Manual) 0 % 02/14/23 03:15 Nucleated RBC % 0.0 /100WBC 03/05/23 05:20 Neutrophils # (Manual) 18.2 10^3/uL (1.5-6.6) H 02/14/23 03:15 Lymphocytes # (Manual) 1.0 10^3/uL (1.5-3.5) L 02/14/23 03:15 Monocytes # (Manual) 1.2 10^3/uL (0.0-1.0) H 02/14/23 03:15 Eosinophils # (Manual) 0.0 10^3/uL (0-0.7) 02/14/23 03:15 Basophils # (Manual) 0.0 10^3/uL (0-0.1) 02/14/23 03:15 Differential Comment MANUAL DIFFERENTIAL 02/14/23 03:15 Sodium 139 mmol/L (135-145) 04/03/23 13:17 Potassium 4.1 mmol/L (3.5-5.0) 04/03/23 13:17 Chloride 101 mmol/L (101-111) 04/03/23 13:17 Carbon Dioxide 25 mmol/L (21-32) 04/03/23 13:17 Anion Gap 13.0 (6-13) 04/03/23 13:17 BUN 25 mg/dL (6-20) H 04/03/23 13:17 Creatinine 1.4 mg/dL (0.6-1.2) H 04/03/23 13:17 Estimated GFR (MDRD) 52 (>89) L 04/03/23 13:17 Glucose 138 mg/dL (70-100) H 04/03/23 13:17 POC Whole Bld Glucose 103 mg/dL (70 - 100) H 03/14/23 07:38 Estimat Average Glucose 134 mg/dL (70-100) H 02/15/23 05:20 Hemoglobin A1c % 6.3 % (4.27-6.07) H 02/15/23 05:20 Calcium 9.6 mg/dL (8.5-10.3) 04/03/23 13:17 Magnesium 1.5 mg/dL (1.7-2.8) L 02/17/23 05:35 Total Bilirubin 0.3 mg/dL (0.2-1.0) 03/03/23 04:48 AST 25 IU/L (10-42) 03/03/23 04:48 ALT 33 IU/L (10-60) 03/03/23 04:48 Alkaline Phosphatase 77 IU/L (42-121) 03/03/23 04:48 Total Creatine Kinase 440 IU/L (22-269) H 02/23/23 14:10 CK-MB (CK-2) 265.9 ng/mL (0.6-6.3) H 02/14/23 03:15 Total Protein 7.2 g/dL (6.7-8.2) 03/03/23 04:48 Albumin 4.0 g/dL (3.2-5.5) 03/03/23 04:48 Globulin 3.2 g/dL (2.1-4.2) 03/03/23 04:48 Albumin/Globulin Ratio 1.3 (1.0-2.2) 03/03/23 04:48 Lipase 34 U/L (22-51) 02/14/23 03:15 TSH 1.21 uIU/mL (0.34-5.60) 02/14/23 03:15 Urine Color YELLOW 02/18/23 15:10 Urine Clarity CLEAR (CLEAR) 02/18/23 15:10 Urine pH 5.5 PH (5.0-7.5) 02/18/23 15:10 Ur Specific [place] 1.020 (1.002-1.030) 02/18/23 15:10 Urine Protein NEGATIVE mg/dL (NEGATIVE) 02/18/23 15:10 Urine Glucose (UA) NEGATIVE mg/dL (NEGATIVE) 02/18/23 15:10 Urine Ketones NEGATIVE mg/dL (NEGATIVE) 02/18/23 15:10 Urine Occult Blood MODERATE (NEGATIVE) H 02/18/23 15:10 Urine Nitrite NEGATIVE (NEGATIVE) 02/18/23 15:10 Urine Bilirubin NEGATIVE (NEGATIVE) 02/18/23 15:10 Urine Urobilinogen 0.2 (NORMAL) E.U./dL (NORMAL) 02/18/23 15:10 Ur Leukocyte Esterase TRACE (NEGATIVE) H 02/18/23 15:10 Urine RBC 11-25 /HPF (0-5) H 02/18/23 15:10 Urine WBC 6-10 /HPF (0-3) H 02/18/23 15:10 Ur Squamous Epith Cells RARE Squamous (<= Few) 02/18/23 15:10 Urine Bacteria None Seen /HPF (None Seen) 02/18/23 15:10 Urine Sperm PRESENT 02/18/23 15:10 Ur Microscopic Review INDICATED 02/14/23 10:34 Urine Culture Comments INDICATED 02/18/23 15:10 Urine Opiates Screen NEGATIVE (NEGATIVE) 02/14/23 10:34 Ur Oxycodone Screen NEGATIVE (NEGATIVE) 02/14/23 10:34 Urine Methadone Screen NEGATIVE (NEGATIVE) 02/14/23 10:34 Ur Propoxyphene Screen NEGATIVE (NEGATIVE) 02/14/23 10:34 Ur Barbiturates Screen NEGATIVE (NEGATIVE) 02/14/23 10:34 Ur Tricyclics Screen NEGATIVE (NEGATIVE) 02/14/23 10:34 Ur Phencyclidine Scrn NEGATIVE (NEGATIVE) 02/14/23 10:34 Ur Amphetamine Screen NEGATIVE (NEGATIVE) 02/14/23 10:34 U Methamphetamines Scrn NEGATIVE (NEGATIVE) 02/14/23 10:34 U Benzodiazepines Scrn NEGATIVE (NEGATIVE) 02/14/23 10:34 Urine Cocaine Screen NEGATIVE (NEGATIVE) 02/14/23 10:34 U Cannabinoids Screen POSITIVE (NEGATIVE) H 02/14/23 10:34 Ethyl Alcohol < 5.0 mg/dL 02/14/23 03:15
[2023-04-14] MEDS: ASPIRIN EC 81 MG TABLET PO SCH (08:13)
[2023-04-14] MEDS: SENNA 8.6 MG TABLET PO SCH ×2 (08:13→20:57)
[2023-04-14] MEDS: DULoxetine 30 MG CAPSULE PO SCH (08:13)
[2023-04-14] MEDS: OLANZapine ODT 5 MG TABLET TL SCH ×2 (08:13→20:57)
[2023-04-14] MEDS: metFORMIN 500 MG TABLET PO SCH ×2 (08:13→17:09)
[2023-04-14] MEDS: MAGNESIUM OXIDE 400 MG TABLET PO SCH (08:13)
[2023-04-14] MEDS: MULTIVITAMIN W/MINERALS TABLET PO SCH (08:13)
[2023-04-14] MEDS: LORazepam 0.5 MG TABLET SL SCH ×2 (08:14→20:57)
[2023-04-14] MEDS: DOCUSATE SODIUM 250 MG CAPSULE PO SCH ×2 (08:14→20:56)
[2023-04-14] MEDS: polyethylene glycoL 3350 17 GM PACKET PO SCH (08:14)
[2023-04-14] MEDS: FLUTICASONE NASAL SPRAY NAS SCH (08:14)
[2023-04-14] MEDS: ACETAMINOPHEN 325 MG TABLET PO PRN ×2 (08:21→17:13)
--- NOTE | 2023-04-14 14:53 | PROVIDER PROGRESS NOTE ---
Assessment/Plan - Problem List (1) Major depressive disorder, recurrent, severe with psychotic symptoms Assessment/Plan: He was admitted with multiple falls. Increasing psychosis. To the point he became catatonic. He has now been here over 35 days. There has been remarkable and positive improvement. Most of the change came from resuming his Risperdal 3 mg twice daily, and adding a benzodiazepine for the catatonia. His psychiatrist let us know that they have been working on permanent placement for him. Its been slow going. He was living with his girlfriend/caregiver. Caregiver burden has been too difficult for her recently. We now have DPOA with his daughter. Daughter is amenable to having him placed. At this time we are awaiting for an adult family home to finalize all the paperwork. Social work, case management are working to get the details together. On 03/21, I sat with the patient to discuss his wishes and to complete a POLST form, which was accomplished. Otherwise there is no new information for this patient. No orders written today All of his problems have been resolved or stable for weeks as we wait for placement. (2) No able caregiver in household Assessment/Plan: He was living with his girlfriend/caregiver. Caregiver burden has been too difficult for her recently, and she had to leave him unaccompanied at night, when she worked. There was a fpc that could take him, but that bed could not be held any longer. SW is continuing to arrange for dch to a safe location On 04/10, he had an interview with a facility. They then wanted proof if he can ambulate stairs, and the stair eval was done. Plan: Permanent placement is being worked on by our social services manager, working with his daughter who is now the DPOA. On 04/12 he was accepted at a center, but they cannot take him until about Sunday 04/15 (3) Chronic psychosis still present. He is still hallucinating at times. But much more controllable. (4) Chronic kidney disease. Acute kidney injury has resolved in the face of rhabdomyolysis and many falls. His creat of 1.3-1.4 is his new baseline. Patient has been at baseline since approximately February 19. He has no longer needed IV fluids. (5) Type 2 diabetes mellitus, controlled. A1c was 6.3%. He is eating 100% of his meals. Metformin resumed February 22. Glucose is controlled. We stopped fingerstick checks at [facility] many days ago. (6) Rectal fissures or abrasions. Part of his psychosis is that aliens or Indians are shoving things in his rectum. He would use his fingers to manually disimpact himself. He gave himself the rectal cuts. He still says that those things that are tucked into his rectum and sometimes speak to him. But he is having less and less agitation with this. (7) Falls at home. Unclear why he kept on falling. He was not intoxicated. No seizures, no syncope. No orthostasis. Not under the influence of any recreational substance, however we suspect he got Suboxone patch haphazardly. His last prescription was written a year ago and it was ordered for 13 weeks. However there were still several patches available in a box that his caregiver brought from home. so we suspect he was intermittently oversedated on his buprenorphine patch, so we stopped the patch entirely and he has had no pain complaints. Here he is now walking with a walker and does so on a regular basis. He did have 1 fall in the hospital where he was leaning forward and he started going toward the floor and the nurse pushed him back. (8) Abrasions of multiple sites due to frequent falls. Photographs taken by nursing. These have all healed. (9) Poor hygiene on admission. He is taking showers here on a more regular basis. (10) Abnormal EKG. Echo was done to make sure he did not have cor pulmonale an d Echo was normal. (11) Left arm swelling. Duplex Doppler - February 18 ws neg (12) Right third toe infection. Resolved. Completed Keflex February 28. (13) Rhabdomyolysis This was from the falls and has resolved. (14) Catatonia has resolved after restarting Risperdal 3 mg twice daily, and adding a Benzodiazepine. - Current Meds Current Meds: Current Medications Generic Name Dose Route Start Last Admin Trade Name Freq PRN Reason Stop Dose Admin Acetaminophen 650 mg 02/15/23 19:57 04/14/23 08:21 Acetaminophen 325 Mg Tablet PO 650 mg Q4HR PRN Administration Pain or Fever > 38C (100.4F) Aspirin 81 mg 02/18/23 09:00 04/14/23 08:13 Aspirin Ec 81 Mg Tablet PO 81 mg DAILY ANGELA Administration Docusate Sodium 250 - 500 mg 02/26/23 17:00 04/14/23 08:14 Docusate Sodium 250 Mg Capsule PO 250 mg BID ANGELA Administration Duloxetine HCl 30 mg 02/15/23 13:30 04/14/23 08:13 Duloxetine 30 Mg Capsule PO 30 mg DAILY ANGELA Administration Fluticasone Propionate 1 sprays 02/17/23 09:00 04/14/23 08:14 Fluticasone Nasal [place] CRISTIAN 1 spray DAILY ANGELA Administration Haloperidol 2 mg 02/22/23 13:06 02/26/23 14:41 Haloperidol 5 Mg/Ml Vial IM 2 mg DAILY PRN Administration Agitation Ibuprofen 600 mg 02/15/23 19:57 03/03/23 20:57 Ibuprofen 600 Mg Tablet PO 600 mg Q6HR PRN Administration MINOR PAIN Lidocaine HCl 1 ml 02/23/23 13:54 02/26/23 13:59 Lidocaine Jelly 2% 6 Ml Jel.Pf.Shanda TOP 1 ml TID PRN Administration anal itching pain Lorazepam 0.5 mg 02/21/23 21:00 04/14/23 08:14 Lorazepam 0.5 Mg Tablet SL 0.5 mg BID ANGELA Administration Magnesium Oxide 400 mg 02/16/23 08:00 04/14/23 08:13 Magnesium Oxide 400 Mg Tablet PO 400 mg DAILYWM ANGELA Administration Metformin HCl 1,000 mg 03/17/23 17:00 04/14/23 08:13 Metformin 500 Mg Tablet PO 1,000 mg 0800,1700 ANGELA Administration Multivitamins/Minerals 1 tab 02/18/23 09:00 04/14/23 08:13 Multivitamin W/Minerals Tablet PO 1 tab DAILYWM ANGELA Administration Olanzapine 5 mg 02/23/23 21:00 04/14/23 08:13 Olanzapine Odt 5 Mg Tablet TL 5 mg BID ANGELA Administration Polyethylene Glycol 17 gm 02/17/23 18:00 04/14/23 08:14 Polyethylene Glycol 3350 17 Gm Packet PO 17 gm DAILY ANGELA Administration Senna 8.6 - 17.2 mg 02/26/23 17:00 04/14/23 08:13 Senna 8.6 Mg Tablet PO 8.6 mg BID ANGELA Administration - Lab Result Fish Bone Diagrams: 03/12/23 04:23 04/03/23 13:17 Subjective - Subjective Patient Reports: Resting Comfortably, No Complaints Objective Vital Signs: Vital Signs - 24 hr 04/14/23 09:00 Temperature 36.4 C L Heart Rate [ 75 Brachial] Respiratory 18 Rate Blood Pressure 126/77 [Left Radial artery] O2 Saturation 98 Oxygen O2 Source Room air I&O (Last 24 Hrs): Intake and Output Totals x24h 04/12/23 04/13/23 04/14/23 23:59 23:59 23:59 Intake Total 1560 2717 1317 Balance 1560 2717 1317 General: Alert HEENT: Mucous membr. moist/pink Neck: Supple Neuro: Alert, Non Focal Cardiovascular: Regular rate Respiratory: No respiratory distress Abdomen: No tenderness Extremities: No clubbing, No edema - Results Results: Laboratory Results WBC 10.0 x10^3/uL (4.8-10.8) 03/12/23 04:23 RBC 4.22 10^6/uL (4.70-6.10) L 03/12/23 04:23 Hgb 12.6 g/dL (14.0-18.0) L 03/12/23 04:23 Hct 37.4 % (42.0-52.0) L 03/12/23 04:23 MCV 88.6 fL (80.0-94.0) 03/12/23 04:23 MCH 29.9 pg (27.0-31.0) 03/12/23 04:23 MCHC 33.7 g/dL (32.0-36.0) 03/12/23 04: RDW 12.8 % (12.0-15.0) 03/12/23 04:23 Plt Count 309 10^3/uL (130-450) 03/12/23 04:23 MPV 9.6 fL (7.4-11.4) 03/12/23 04:23 Neut # (Auto) 4.1 10^3/uL (1.5-6.6) 03/05/23 05:20 Lymph # (Auto) 2.8 10^3/uL (1.5-3.5) 03/05/23 05:20 [place]ke # (Auto) 0.6 10^3/uL (0.0-1.0) 03/05/23 05:20 Eos # (Auto) 0.3 10^3/uL (0.0-0.7) 03/05/23 05:20 Baso # (Auto) 0.0 10^3/uL (0.0-0.1) 03/05/23 05:20 Absolute Nucleated RBC 0.00 x10^3/uL 03/05/23 05:20 Total Counted 100 02/14/23 03:15 Band Neuts % (Manual) 9 % (0-10) 02/14/23 03:15 Abnorm Lymph % (Manual) 0 % 02/14/23 03:15 Nucleated RBC % 0.0 /100WBC 03/05/23 05:20 Neutrophils # (Manual) 18.2 10^3/uL (1.5-6.6) H 02/14/23 03:15 Lymphocytes # (Manual) 1.0 10^3/uL (1.5-3.5) L 02/14/23 03:15 Monocytes # (Manual) 1.2 10^3/uL (0.0-1.0) H 02/14/23 03:15 Eosinophils # (Manual) 0.0 10^3/uL (0-0.7) 02/14/23 03:15 Basophils # (Manual) 0.0 10^3/uL (0-0.1) 02/14/23 03:15 Differential Comment MANUAL DIFFERENTIAL 02/14/23 03:15 Sodium 139 mmol/L (135-145) 04/03/23 13:17 Potassium 4.1 mmol/L (3.5-5.0) 04/03/23 13:17 Chloride 101 mmol/L (101-111) 04/03/23 13:17 Carbon Dioxide 25 mmol/L (21-32) 04/03/23 13:17 Anion Gap 13.0 (6-13) 04/03/23 13:17 BUN 25 mg/dL (6-20) H 04/03/23 13:17 Creatinine 1.4 mg/dL (0.6-1.2) H 04/03/23 13:17 Estimated GFR (MDRD) 52 (>89) L 04/03/23 13:17 Glucose 138 mg/dL (70-100) H 04/03/23 13:17 POC Whole Bld Glucose 103 mg/dL (70 - 100) H 03/14/23 07:38 Estimat Average Glucose 134 mg/dL (70-100) H 02/15/23 05:20 Hemoglobin A1c % 6.3 % (4.27-6.07) H 02/15/23 05:20 Calcium 9.6 mg/dL (8.5-10.3) 04/03/23 13:17 Magnesium 1.5 mg/dL (1.7-2.8) L 02/17/23 05:35 Total Bilirubin 0.3 mg/dL (0.2-1.0) 03/03/23 04:48 AST 25 IU/L (10-42) 03/03/23 04:48 ALT 33 IU/L (10-60) 03/03/23 04:48 Alkaline Phosphatase 77 IU/L (42-121) 03/03/23 04:48 Total Creatine Kinase 440 IU/L (22-269) H 02/23/23 14:10 CK-MB (CK-2) 265.9 ng/mL (0.6-6.3) H 02/14/23 03:15 Total Protein 7.2 g/dL (6.7-8.2) 03/03/23 04:48 Albumin 4.0 g/dL (3.2-5.5) 03/03/23 04:48 Globulin 3.2 g/dL (2.1-4.2) 03/03/23 04:48 Albumin/Globulin Ratio 1.3 (1.0-2.2) 03/03/23 04:48 Lipase 34 U/L (22-51) 02/14/23 03:15 TSH 1.21 uIU/mL (0.34-5.60) 02/14/23 03:15 Urine Color YELLOW 02/18/23 15:10 Urine Clarity CLEAR (CLEAR) 02/18/23 15:10 Urine pH 5.5 PH (5.0-7.5) 02/18/23 15:10 Ur Specific [place] 1.020 (1.002-1.030) 02/18/23 15:10 Urine Protein NEGATIVE mg/dL (NEGATIVE) 02/18/23 15:10 Urine Glucose (UA) NEGATIVE mg/dL (NEGATIVE) 02/18/23 15:10 Urine Ketones NEGATIVE mg/dL (NEGATIVE) 02/18/23 15:10 Urine Occult Blood MODERATE (NEGATIVE) H 02/18/23 15:10 Urine Nitrite NEGATIVE (NEGATIVE) 02/18/23 15:10 Urine Bilirubin NEGATIVE (NEGATIVE) 02/18/23 15:10 Urine Urobilinogen 0.2 (NORMAL) E.U./dL (NORMAL) 02/18/23 15:10 Ur Leukocyte Esterase TRACE (NEGATIVE) H 02/18/23 15:10 Urine RBC 11-25 /HPF (0-5) H 02/18/23 15:10 Urine WBC 6-10 /HPF (0-3) H 02/18/23 15:10 Ur Squamous Epith Cells RARE Squamous (<= Few) 02/18/23 15:10 Urine Bacteria None Seen /HPF (None Seen) 02/18/23 15:10 Urine Sperm PRESENT 02/18/23 15:10 Ur Microscopic Review INDICATED 02/14/23 10:34 Urine Culture Comments INDICATED 02/18/23 15:10 Urine Opiates Screen NEGATIVE (NEGATIVE) 02/14/23 10:34 Ur Oxycodone Screen NEGATIVE (NEGATIVE) 02/14/23 10:34 Urine Methadone Screen NEGATIVE (NEGATIVE) 02/14/23 10:34 Ur Propoxyphene Screen NEGATIVE (NEGATIVE) 02/14/23 10:34 Ur Barbiturates Screen NEGATIVE (NEGATIVE) 02/14/23 10:34 Ur Tricyclics Screen NEGATIVE (NEGATIVE) 02/14/23 10:34 Ur Phencyclidine Scrn NEGATIVE (NEGATIVE) 02/14/23 10:34 Ur Amphetamine Screen NEGATIVE (NEGATIVE) 02/14/23 10:34 U Methamphetamines Scrn NEGATIVE (NEGATIVE) 02/14/23 10:34 U Benzodiazepines Scrn NEGATIVE (NEGATIVE) 02/14/23 10:34 Urine Cocaine Screen NEGATIVE (NEGATIVE) 02/14/23 10:34 U Cannabinoids Screen POSITIVE (NEGATIVE) H 02/14/23 10:34 Ethyl Alcohol < 5.0 mg/dL 02/14/23 03:15
[2023-04-15] MEDS: ACETAMINOPHEN 325 MG TABLET PO PRN
[2023-04-15] MEDS: OLANZapine ODT 5 MG TABLET TL SCH (08:48)
[2023-04-15] MEDS: LORazepam 0.5 MG TABLET SL SCH (08:48)
[2023-04-15] MEDS: metFORMIN 500 MG TABLET PO SCH (08:48)
[2023-04-15] MEDS: MAGNESIUM OXIDE 400 MG TABLET PO SCH (08:48)
[2023-04-15] MEDS: DULoxetine 30 MG CAPSULE PO SCH (08:48)
[2023-04-15] MEDS: MULTIVITAMIN W/MINERALS TABLET PO SCH (08:48)
[2023-04-15] MEDS: ASPIRIN EC 81 MG TABLET PO SCH (08:48)
[2023-04-15] MEDS: polyethylene glycoL 3350 17 GM PACKET PO SCH (08:49)
[2023-04-15] MEDS: DOCUSATE SODIUM 250 MG CAPSULE PO SCH (08:49)
[2023-04-15] MEDS: SENNA 8.6 MG TABLET PO SCH (08:49)
[2023-04-15] MEDS: FLUTICASONE NASAL SPRAY NAS SCH (08:52)
--- NOTE | 2023-04-15 11:53 | Discharge Plan ---
Discharge Plan Problem Reviewed?: Yes Disposition: Home, Self Care Condition: Stable Prescriptions: Acetaminophen [Tylenol] 650 mg PO Q4HR PRN #30 tab PRN Reason: fever or pain Ibuprofen [Motrin] 600 mg PO Q6HR PRN #30 tab PRN Reason: Minor Pain LORazepam [Ativan] 0.5 mg SL BID #30 tab DULoxetine [Cymbalta] 60 mg PO DAILY #30 cap Fluticasone [Flonase] 1 sprays CRISTIAN DAILY #1 each metFORMIN [Glucophage] 1,000 mg PO BIDWM #60 tab Atorvastatin Calcium [Lipitor] 80 mg PO HS #30 tab Magnesium Oxide [Mag Ox] 400 mg PO DAILYWM #30 tab Multivitamin W/Minerals [Theragran M] 1 tab PO DAILYWM #30 tab OLANZapine ODT [Zyprexa Odt] 5 mg TL BID #60 tab Diet: Regular Activity Restrictions: Activity as Tolerated Shower Restrictions: No Driving Restrictions: Yes (no driving) Health Concerns: He has a history of major depressive disorder that is recurrent with severe psychotic symptoms. He had been unresponsive to outpatient management and his c aseworker with his mental health provider were both in the process of trying to find him placement because he could no longer live at home. He was having multiple falls, increasing psychosis. He was admitted because of the falls with acute kidney injury and rhabdomyolysis. Once those problems were cleared, his main problem was the depression with psychosis. He had deteriorated to the point of catatonia. His improvement came from resuming Risperdal 3 mg twice a day and adding a benzodiazepine for catatonia. He has done well and his final medication management is Zyprexa, Cymbalta, and Ativan. While here his other problems of type 2 diabetes mellitus were well controlled. He had acute on chronic kidney injury and that resolved to a baseline creatinine of 1.3-1.4. He was very fixated on one of his psychoses that "Indians" were putting things up his rectum and monitoring him that way. As such she had rectal pain from probably manual disimpaction. That resolved. He no longer was having falls and was ambulating in the hallway without any use of durable medical equipment. Feeding himself, and dressing himself at discharge. On admission he had abrasions of multiple sites and all of those healed. Poor hygiene resolved. And a right third toe infection resolved with Keflex. Plan of Treatment: At discharge I looked at his home medication list. He was on atorvastatin, buprenorphine, gabapentin, and Risperdal. The only medication resumed from his home medication list was atorvastatin. The others were not resumed. He was continued on Tylenol, aspirin, Cymbalta, fluticasone, lorazepam, magnesium oxide, metformin, multivitamin, and a bowel protocol for constipation. His last use of Haldol was February 26. Zyprexa ODT 5 mg twice daily has been very effective at treating his catatonia. Care Goals: He will need permanent placement due to his mental health issues. He is not able to live by himself anymore. He is now moving to the [facility] to a facility that is can to be close to his daughter and granddaughter. He is very excited about seeing his granddaughter today. Assessment: At this time patient is stable with regards to activities of daily living. He is able to feed himself, dress himself, needs no prompting to take his medications or take a bath. No Smoking: If you smoke, Please STOP! Call for help.
--- NOTE | 2023-04-15 12:03 | DISCHARGE SUMMARY ---
Discharge Summary Admit Date: 02/14/23 Discharge Date: 04/15/23 Discharging Provider: Monique Vargas MD Primary Care Provider: Sarah Cedillo Code Status: Attempt Resuscitation Condition at Discharge: Stable Discharge Disposition: 01 Home, Self Care - DIAGNOSES Discharge Diagnoses with Status of Each Condition: Acute on chronic kidney disease stage III, resolved Rhabdomyolysis, resolved Major depressive disorder, recurrent, with severe psychotic symptoms Severe catatonia present on admission resolved Multiple falls at home, resolved Type 2 diabetes mellitus, controlled, without complications without long-term use of insulin Rectal fissures, resolved Abrasions of multiple sites, present on admission, resolved Poor hygiene, resolved Abnormal EKG Left arm swelling, resolved Right third toe soft tissue infection, resolved - HPI History of Present Illness: This is a 57-year-old male with a history of diabetes on metformin, paranoid schizophrenia on medications, chronic back pain and is Buprenorphine dependent, history of kidney stones and prior lithotripsies. He was recently admitted here 2 mos ago after a fall and then slept outside, was found by his caregiver and brought to the emergency room with complaints of pain in his back after the fall. CT imaging showed no fractures or dislocations. He was found to have rhabdomyolysis with CK of 11,000 and MILTON with a creatinine of 1.7 (his baseline creatinine is 1.0). He received many days of IV saline and improved. The patient was seen by social science instructor who found that he is "unsteady at home because he does not remember to use his walker consistently". He lives in a trailer with his caregiver, who he calls his girlfriend. There was a safe discharge home, to where he was sent. An ambulance was called to the house today and the caregiver described to paramedics that he had 4 falls in the last 24 hours, and now was too weak to get up. EMS found him on the floor with pulse of 130, BP 163/71, room air saturation 95% and afebrile. He was brought to the ER. He underwent CT imaging of the brain and C-spine and no abnormalities were found. He complains of pain in the left shoulder and finds it difficult to make a L hand fist because of pain. EKG shows sinus tachycardia rate of 125 and early R/S progression (which was present on the EKG from 2 months ago). Today's labs show a BUN of 22, creatinine 1.9, glucose 199, bilirubin 0.8, AST 155, ALT 58. CK 19,000 799, WBC 20.4. 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 Very dry mucous membranes. No respiratory distress. Benign abdomen. Disheveled appearance and looks older than stated age. Over the next few days he went from opening his eyes and looking at you to barely being awake, mumbling, known distinguishable words. He would try to respond to questioning and it would take a very, very long time (sometimes as long as 6 questions) before he would make a one-word answer. - CONSULTS | PROCEDURES Procedures: February [address] without acute intracranial abnormalities. No fractures. Stable appearance of age-related senescent changes and sequela of chronic small vessel ischemic disease. February [address] without acute fracture or traumatic malalignment. Moderate multilevel cervical spondylosis. February 14 chest x-ray with diffuse interstitial prominence and central vascular crowding related to low lung volumes. No consolidation seen. February 14 shoulder x-ray without acute fracture or dislocation. Moderate degenerative changes of the left AC joint. Venous duplex of the left arm on February 19 without DVT of left upper extremity. February 24 foot x-ray without acute plain film abnormality. No fractures or dislocations. No suspicious bony lesions. Age-appropriate degenerative changes seen in the joints. Urine culture from February 18 without gross February 14 echocardiogram had an overall left ventricular systolic function normal with an ejection fraction of 60 to 65%. Right ventricle systolic function normal. No concerning valvular heart disease noted. - HOSPITAL COURSE Hospital Course: (1) Major depressive disorder, recurrent, severe with psychotic symptoms Assessment/Plan: He was admitted with multiple falls. Increasing psychosis. Over the next few days he became catatonic. Unresponsive. The best he could do was give one-word answers with multiple prompted questions. He was convinced that Indians were putting things in his rectum and monitoring him that way. At times he would bolt out of bed from his catatonic state and did get his rectum to try and manually disimpact himself. He was paranoid. Sometimes would whisper answers when he became more verbal so that "they could not hear him". He has now been here over 60 days. There has been remarkable and positive improvement. His psychiatrist is Dr. Lawrence. Her number is [phone]. She had been seeing him off and on remotely for a year over [facility]. She saw him in May 2022 right before she went on maternity leave. Before she went on maternity leave he was functioning well. Minimal psychosis. Mild depression. She came back from maternity leave and noticed that he had a substantial change 6 to 7 months later. He was hallucinating, falling, having episodes of defecation and urination all over the floor of his house. He described aliens are Indians were putting stuff up his rectum. And he was desperate to pull it out. He was using excessive cannabis. Stopping it for 2 months did not help. He then started becoming more and more mute. Unresponsive. Seroquel had no effect. Sertraline had no effect. He became extraparametal on Risperdal so she decreased his Risperdal from 3 mg 3 times daily to 3 mg twice a day. In spite of that his muteness became more prominent, and they began plans (with his showcase maker at the mental health clinic) to put him in a more intensive environment because he was not able to succeed living at home. The showcase maker was Mikaela Irving and her number was [phone], extension [phone]. With instructions from Dr. Courtney james, I stopped the Risperdal, started him on Zyprexa IM until he could take Zyprexa p.o. Added Ativan sublingual twice a day to help with the catatonia and that worked. She recommended continuing the Cymbalta.. Its been slow going. He was living with his girlfriend/caregiver. Caregiver burden has been too difficult for her recently. We now have DPOA with his daughter. Daughter is amenable to having him placed. At this time we are awaiting for an adult family home to finalize all the paperwork. Social work, case management worked together to get the details done.. On 03/21, I sat with the patient to discuss his wishes and to complete a POLST form, which was accomplished. By discharge he had gone from being a catatonic patient, responsive to voice by opening his eyes, in bed. And now he is walking in the hallways, feeding himself, dressing himself. He does have stiff shuffling gait but he is cooperative, expressing appropriate emotion such as sadness because he has been here so long, and positively beaming with happiness at the idea that he is leaving to go to a facility where he can see his daughter and grandchild on a regular basis. Medications have been adjusted so that he is on Cymbalta, Zyprexa, and Ativan. He has been discharged to [facility] [place]. Their number is [phone]. [facility] [place]. (2) No able caregiver in household Assessment/Plan: He was living with his girlfriend/caregiver. Caregiver burden has been too difficult for her recently, and she had to leave him unaccompanied at night, when she worked. There was a skilled nursing that could take him, but that bed could not be held any longer. SW is continuing to arrange for dch to a safe location On 04/10, he had an interview with a facility. They then wanted proof if he can ambulate stairs, and the stair eval was done. Plan: Permanent placement is being worked on by our social science instructor, working with his daughter who is now the DPOA. On 04/12 he was accepted at a center, but they could take him until about Sunday 04/15 (3) Chronic psychosis still present. He is still hallucinating at times. But much more controllable. (4) Chronic kidney disease. Acute kidney injury has resolved in the face of rhabdomyolysis and many falls. His creat of 1.3-1.4 is his new baseline. Patient has been at baseline since approximately February 19. He has no longer needed IV fluids. (5) Type 2 diabetes mellitus, controlled. A1c was 6.3%. He is eating 100% of his meals. Metformin resumed February 22. Glucose is controlled. We stopped fingerstick checks at [facility] many days ago. (6) Rectal fissures or abrasions. Part of his psychosis is that aliens or Indians are shoving things in his rectum. He would use his fingers to manually disimpact himself. He gave himself the rectal cuts. He still says that those things that are tucked into his rectum and sometimes speak to him. But he is having less and less agitation with this. (7) Falls at home. Unclear why he kept on falling. He was not intoxicated. No seizures, no syncope. No orthostasis. Not under the influence of any recreational substance, however we suspect he got Suboxone patch haphazardly. His last prescription was written a year ago and it was ordered for 13 weeks. However there were still several patches available in a box that his caregiver brought from home. so we suspect he was intermittently oversedated on his buprenorphine patch, so we stopped the patch entirely and he has had no pain complaints. Here he is now walking with a walker and does so on a regular basis. He did have 1 fall in the hospital where he was leaning forward and he started going toward the floor and the nurse pushed him back. (8) Abrasions of multiple sites due to frequent falls. Photographs taken by nursing. These have all healed. (9) Poor hygiene on admission. He is taking showers here on a more regular basis. (10) Abnormal EKG. Echo was done to make sure he did not have cor pulmonale and Echo was normal. (11) Left arm swelling. Duplex Doppler - February 18 ws neg (12) Right third toe infection. Resolved. Completed Keflex February 28. (13) Rhabdomyolysis This was from the falls and has resolved. (14) Catatonia has resolved after restarting Risperdal 3 mg twice daily, and adding a Benzodiazepine. - ALLERGIES Allergies/Adverse Reactions: Allergies Allergy/AdvReac Type Severity Reaction Status Date / Time diazepam [From Valium] Allergy Unknown Verified 12/20/22 12:36 - MEDICATIONS Home Medications: Ambulatory Orders Medication Instructions Recorded Confirmed Acetaminophen [Tylenol] 650 mg PO Q4HR PRN #30 tab 04/15/23 Aspirin [Aspirin EC] 81 mg PO DAILY #30 04/15/23 02/15/23 Atorvastatin Calcium [Lipitor] 80 mg PO HS #30 tab 04/15/23 DULoxetine [Cymbalta] 60 mg PO DAILY #30 cap 04/15/23 Fluticasone [Flonase] 1 sprays CRISTIAN DAILY #1 each 04/15/23 Ibuprofen [Motrin] 600 mg PO Q6HR PRN #30 tab 04/15/23 LORazepam [Ativan] 0.5 mg SL BID #30 tab 04/15/23 Magnesium Oxide [Mag Ox] 400 mg PO DAILYWM #30 tab 04/15/23 Multivitamin W/Minerals [Theragran 1 tab PO DAILYWM #30 tab 04/15/23 M] OLANZapine ODT [Zyprexa Odt] 5 mg TL BID #60 tab 04/15/23 metFORMIN [Glucophage] 1,000 mg PO BIDWM #60 tab 04/15/23 - PHYSICAL EXAM AT DISCHARGE General Appearance: positive: No acute distress (well groomed, dressed, bearded, male pattern baldness), Alert, Other (smiling today, so happy to be able to see his daughter and granddaughter) Eyes Bilateral: positive: PERRL, EOMI ENT: positive: No signs of dehydration Respiratory: positive: No respiratory distress. negative: Wheezes, Rales, Rhonchi Cardiovascular: positive: Regular rate & rhythm Peripheral Pulses: positive: 1+ Abdomen: positive: Non-tender, No organomegaly, Nml bowel sounds, No distention Skin: positive: Warm, Dry (scaley at times due to dryness) Extremities: positive: Non-tender, Full ROM, No pedal edema Neurologic/Psychiatric: positive: Oriented x3 (but not alway clear on date), CN's nml (2-12), Other (flat affect but he is beaming today). negative: Motor nml (stiff and parkinson like in shuffling, but no restrictions) - LABS Result Diagrams: 03/12/23 04:23 04/03/23 13:17
[2023-04-15 14:10] VITALS: BP 140/92
== END 2023-04-15 14:48 | disposition home or self-care (01) | DRG 565 ==
LOC: EDUNIT# → ED 02:31 → MS2 11:26
PROVIDERS: ADMIT Internal Medicine; ATTEND Specialist
PROC: 0H9MXZZ Drainage of Right Foot Skin, External Approach (ICD-10-PCS; principal; 2023-02-24)
DX: T79.6XXA Traumatic ischemia of muscle, initial encounter (principal); F11.20 Opioid dependence, uncomplicated; D72.829 Elevated white blood cell count, unspecified; F33.3 Major depressive disorder, recurrent, severe with psychotic symptoms; Z87.891 Personal history of nicotine dependence; N17.9 Acute kidney failure, unspecified; W19.XXXA Unspecified fall, initial encounter; Z91.81 History of falling; Y92.029 Unspecified place in mobile home as the place of occurrence of the external cause; E11.9 Type 2 diabetes mellitus without complications; Z79.84 Long term (current) use of oral hypoglycemic drugs; E11.22 Type 2 diabetes mellitus with diabetic chronic kidney disease; N18.30 Chronic kidney disease, stage 3 unspecified; R94.31 Abnormal electrocardiogram [ECG] [EKG]; R22.31 Localized swelling, mass and lump, right upper limb; L08.9 Local infection of the skin and subcutaneous tissue, unspecified; G89.29 Other chronic pain; M54.9 Dorsalgia, unspecified; R00.0 Tachycardia, unspecified; E86.0 Dehydration; S00.83XA Contusion of other part of head, initial encounter; S60.222A Contusion of left hand, initial encounter; S60.221A Contusion of right hand, initial encounter; S90.129A Contusion of unspecified lesser toe(s) without damage to nail, initial encounter; M19.012 Primary osteoarthritis, left shoulder; K60.2 Anal fissure, unspecified; S00.81XA Abrasion of other part of head, initial encounter; S90.412A Abrasion, left great toe, initial encounter; S90.411A Abrasion, right great toe, initial encounter; S80.212A Abrasion, left knee, initial encounter; S80.211A Abrasion, right knee, initial encounter; E87.6 Hypokalemia; Z74.2 Need for assistance at home and no other household member able to render care
CPT/HCPCS: 36415; 51702; 70450; 71045; 72125; 73030; 73620; 80048; 80053; 80306; 81001; 82550; 82553; 83036; 83690; 83735; 84443; 85025; 85027; 87086; 93005; 93306; 93971; 96360; 96361; 97116; 97162; 97165; 99285; A9270; G0480; 80320; 81003